=== PATIENT | female | born 1985 | race Two or more races ===

== ENCOUNTER → 2019-12-18 11:58 | Outpatient (BNVA) | payer MEDICAID, SELFPAY | PROVIDERS: Visit Provider Internal Medicine Endocrinology, Diabetes & Metabolism | DX: Z13.89 Encounter for screening for other disorder (principal) | CPT/HCPCS: 99212 ==

== ENCOUNTER 2020-01-09 13:02 | Outpatient (REF) | payer MEDICAID, SELFPAY ==
[2020-01-09 14:46] LABS: Free T4 (Free Thyroxine) 1.29 ng/dL (0.71-1.85); Thyroid Stimulating Hormone 0.44 uIU/mL (0.32-4.0); Vitamin D 25-OH Total 19.5 ng/mL (>30)
[2020-01-09 15:03] LABS: Vitamin B12 198 pg/mL (200-900)
== END 2020-01-09 13:03 | disposition home or self-care (01) ==
LOC: HO.LAB 13:02
PROVIDERS: Visit Provider Internal Medicine Endocrinology, Diabetes & Metabolism
DX: E89.0 Postprocedural hypothyroidism (principal); E53.8 Deficiency of other specified B group vitamins; E55.9 Vitamin D deficiency, unspecified
CPT/HCPCS: 82306; 82607; 84439; 84443

== ENCOUNTER 2020-01-09 17:06 | Emergency (ER) | payer MEDICAID, SELFPAY ==
[2020-01-09 17:23] VITALS: BP 135/90; PULSE 77; RESP 16; TEMP 36.2; O2SAT 99; BMI 42.5
--- NOTE | 2020-01-09 20:29 | ED.GENADULT ---
HPI - General Adult General Chief complaint: Headache Stated complaint: migraines Time Seen by Provider: 01/09/20 20:26 History of Present Illness HPI narrative: There is a 4-year-old female who presents to the emergency department for evaluation of migraine headache x1 week. The patient says she has had a constant, hammering like sensation on the top of her head for 1 week. She has associated chills and sweats. She had associated nausea but no vomiting. She states she has had similar migraine headaches in the past and her last severe migraine headache was 1 year prior. She also states that she feels congested. She has been using Afrin spray with no relief of her congestion. She denied cough, chest pain, shortness of breath, trouble will change to her vision, weakness, numbness, dizziness. She states that her last severe migraine was caused by a sinus infection and she believes that she received antibiotics for the sinus infection. Related Data Home Medications Medication Instructions Recorded Confirmed albuterol sulfate 90 mcg/actuation 2 puff INHALATION Q6H PRN 12/18/19 12/18/19 aerosol inhaler [id number]-znlsacxiiwryd-lazphfjg 250 1 tab PO Q4-6H PRN 12/18/19 12/18/19 mg-250 mg-65 mg tablet docusate sodium 100 mg capsule 100 mg PO DAILY 12/18/19 12/18/19 propranolol 60 mg capsule,24 60 mg PO DAILY 12/18/19 12/18/19 hr,extended release sennosides 8.6 mg capsule 8.6 mg PO BEDTIME 12/18/19 12/18/19 trazodone 50 mg tablet 50 mg PO DAILY 12/18/19 12/18/19 Previous Rx's Medication Instructions Recorded Tirosint 137 mcg capsule 137 mcg PO DAILY 30 Days #30 cap NS 12/18/19 cholecalciferol (vitamin D3) 125 125 mcg PO DAILY 30 Days #30 cap 12/18/19 mcg (5,000 unit) capsule promethazine 25 mg PO Q6H PRN #10 tab 01/09/20 Allergies Allergy/AdvReac Type Severity Reaction Status Date / Time ENVIRONMENTAL Allergy Unknown SHORTNESS Uncoded 10/26/19 15:46 OF BREATH Review of Systems Review of Systems: Yes all other systems are reviewed and are negative Constitutional: Constitutional: Reports as per HPI Eyes: Eyes: Reports as per HPI ENT: Reports as per HPI Cardiovascular: Cardiovascular: Reports as per HPI Respiratory: Respiratory: Reports as per HPI Gastrointestinal: Gastrointestinal: Reports as per HPI Genitourinary: Genitourinary: Reports as per HPI Musculoskeletal: Musculoskeletal: Reports as per HPI Integumentary/Breasts: Skin/Breast: Reports as per HPI Neurologic: Reports as per HPI and Reports Abnormal speech present Psychiatric: Psychiatric: Reports as per HPI Allergic/Immunologic: Allergic/Immunologic: Reports as per HPI PMFSH Past Medical History [facility] Narrative: The patient denies tobacco, alcohol and drug use. Medical History Anxiety B12 deficiency Migraine Obesity Postablative hypothyroidism Vitamin D deficiency Surgical History Hx of dilation and curettage Family History Family History Father Cancer Mother Hypertension Diabetes High cholesterol CVD (cardiovascular disease) Social History Social History Alcohol intake: never Smoking Status: Never smoker Use of substances other than those prescribed or required for medical reasons: No Advance Directives: No Advance Directives Information Provided: Yes Physical Exam Vital Signs: Vital Signs: Last Vital Signs Temp 98.0 F 01/09/20 22:00 Pulse 69 01/09/20 22:00 Resp 16 01/09/20 22:00 BP 130/80 01/09/20 22:00 Pulse Ox 98 01/09/20 22:00 Body Mass Index 42.5 Const: General: cooperative, no acute distress, alert and awake Orientation/consciousness: oriented to person and oriented to place Limitations: no limitations HENMT: Head: Yes normal to inspection, Yes normocephalic and Yes atraumatic Ears: external ears normal General nose exam: Normal external nose present, no nasal discharge noted and Other nasal findings present Face and sinus: Yes normal facial exam, No sinuses nontender and Yes face symmetric Mouth: Normal oral and palatal mucosa present Eyes: General: appearance normal, both eyes and all related structures Periorbital: periorbital findings normal Eyelids: Yes eyelids normal Conjunctivae: conjunctivae normal Sclerae: sclerae normal Corneas: corneas normal Pupils: Equal, round and reactive pupils present Direct Ophthalmoscopy: normal light reflex Neck: Neck: Yes normal visual inspection and Yes supple Lymphatic: no lymphadenopathy noted Chest: Chest palpation & inspection: normal inspection of the chest and normal palpation of entire chest wall Resp: Effort & Inspection: normal respiratory effort, abnormal respiratory pattern, no audible wheezes and no respiratory distress Auscultation: clear to auscultation bilaterally, no crackles, no rales, no rhonchi and no wheezes Cardio: Rate: regular rate Rhythm: regular rhythm Heart sounds: S1 normal heart sound present, S2 normal heart sound present and Murmur heart sound present GI: Inspection: No distended Palpation (GI): Soft to palpation, nontender, no guarding and No hepatosplenomegaly present Auscultation: normal bowel sounds : General: Yes no CVA tenderness Back/Spine/Pelvis: Back: no CVA tenderness Skin: General skin exam: no rashes or lesions noted Lesions: no lesions Rashes: no rashes Wounds: no wounds Neuro: General: oriented to person and oriented to place Cranial nerves: Yes CN's II-XII intact bilaterally and Yes Equal, round and reactive pupils present Cognition (Neuro): normal cognition Speech: Abnormal speech present Motor exam (neuro): 5/5 motor strength present throughout Extrem: General: Yes normal to inspection, Yes full ROM, Yes no pedal edema and Yes no calf tenderness Psych: Appearance: grossly normal Mental Status: mental status grossly normal Speech and movement: Clear speech present Affect: normal affect Thought process: Normal thought process present Course Course Course Narrative: 34-year-old female with history of migraine headaches who presents to emergency department for evaluation of a persistent migraine headache for 1 week, she also complains of sinus congestion. Physical examination revealed no sinus tenderness. The patient's presentation is most consistent with her migraine syndrome. She was ordered and Phenergan 12.5 mg IV, Benadryl 50 mg IV, Toradol 30 mg IV and normal saline x1 L. 2303: The patient is feeling better after the above treatment. The patient was discharged home with a prescription for Phenergan. She was advised to take Excedrin migraine, Phenergan and Benadryl every 6 hours as needed for headache. She was given printed instructions. She was advised follow-up with the doctor in 2 days for evaluation. Discharge Plan Discharge Clinical Impression: Migraine Qualifiers: Migraine type: without aura Status migrainosus presence: without status migrainosus Intractability: not intractable Qualified Code(s): G43.009 - Migraine without aura, not intractable, without status migrainosus Patient Disposition: Home, Self-Care Instructions: Acute Headache (ED) Additional Instructions: Take the following 3 medications together every 6 hours as needed for headache. Excedrin migraine 2 pills Benadryl 25 mg, 2 pills Phenergan 25 mg, 1 pill After you take these medications lying down in a dark quiet room and try to sleep. This often will make the headache go away. Follow-up with your doctor in 2 days for re-evaluation. Please return to the emergency department if her symptoms get worse or if you develops any symptoms that are concerning to you. Prescriptions: New promethazine 25 mg tablet 25 mg PO Q6H PRN (Reason: Nausea, vomiting, headache) Qty: 10 RF: 0 No Action Excedrin Extra Strength 250-250-65 mg tablet 1 tab PO Q4-6H PRNRF: 0 docusate sodium [Colace] 100 mg capsule 100 mg PO DAILY RF: 0 senna 8.6 mg capsule 8.6 mg PO BEDTIME RF: 0 trazodone 50 mg tablet 50 mg PO DAILY RF: 0 propranolol 60 mg capsule,extended release 24 hr 60 mg PO DAILY RF: 0 albuterol sulfate [ProAir HFA] 90 mcg/actuation HFA aerosol inhaler 2 puff inhalation Q6H PRNRF: 0 Tirosint 137 mcg capsule 137 mcg PO DAILY 30 Days Qty: 30 RF: 6 cholecalciferol (vitamin D3) 125 mcg (5,000 unit) capsule 125 mcg PO DAILY 30 Days Qty: 30 RF: 3
[2020-01-09] MEDS: diphenhydrAMINE HCL 50 MG/ML VIAL IVPUSH (20:44)
[2020-01-09] MEDS: Ketorolac Tromethamine 15 MG/ML VIAL 30 MG IV (20:46)
--- NOTE | 2020-01-09 20:53 | PC.NURSE ---
pt medicated per order, after getting ivp benadryl- patient felt dizzy, diaphoretic and vomited a small amount, pt states the last time she got the ivp benadryl the same thing happened, this nurse pushed the iv benadryl slow but patient still had side effects of it, patient asked for a cool compress and is now resting, will continue to monitor.
[2020-01-09 20:56] VITALS: BP 131/89; PULSE 78; RESP 17; TEMP 36.6; O2SAT 99
[2020-01-09 22:00] VITALS: BP 130/80; PULSE 69; RESP 16; TEMP 36.7; O2SAT 98
--- NOTE | 2020-01-09 22:06 | PC.NURSE ---
patient sleeping woke to verbal stimulus, a&ox3, pt states she still has a headache, vitals stable, will continue to monitor.
== END 2020-01-09 23:30 | disposition home or self-care (01) ==
PROVIDERS: Emergency Provider Emergency Medicine Emergency Medical Services
DX: G43.009 Migraine without aura, not intractable, without status migrainosus (principal); E55.9 Vitamin D deficiency, unspecified; E53.8 Deficiency of other specified B group vitamins
CPT/HCPCS: 96374; 96375; 99284; J1200; J1885

== ENCOUNTER 2020-02-10 13:10 | Emergency (ER) | payer MEDICAID, SELFPAY ==
[2020-02-10 14:00] VITALS: BP 151/99; PULSE 86; RESP 18; TEMP 37.6; O2SAT 100; BMI 42.5
--- NOTE | 2020-02-10 14:32 | ED_ITS ---
HPI - URI/Sore Throat General Chief Complaint: Upper Respiratory Symptoms Stated Complaint: covid symptoms Time Seen by Provider: 02/10/20 14:06 Source: patient Mode of arrival: ambulatory Limitations: no limitations History of Present Illness HPI Narrative: Body aches, chills, dry cough for the past 2 days similar to her significant other here for COVID testing. MD elicited complaint: fever (T-max 100.2 degrees) Pertinent past history: asthma Onset (ago): day(s) Consistency: constant Severity: mild Description of mucous: clear Able to tolerate fluids by mouth: Yes Exacerbating factors: nothing Associated symptoms: myalgias and nasal congestion Treatments prior to arrival: none Related Data Home Medications Medication Instructions Recorded Confirmed albuterol sulfate 90 mcg/actuation 2 puff INHALATION Q6H PRN 12/18/19 12/18/19 aerosol inhaler hnanuvz-sctequkdjoexe-rphswrso 250 1 tab PO Q4-6H PRN 12/18/19 12/18/19 mg-250 mg-65 mg tablet docusate sodium 100 mg capsule 100 mg PO DAILY 12/18/19 12/18/19 propranolol 60 mg capsule,24 60 mg PO DAILY 12/18/19 12/18/19 hr,extended release sennosides 8.6 mg capsule 8.6 mg PO BEDTIME 12/18/19 12/18/19 trazodone 50 mg tablet 50 mg PO DAILY 12/18/19 12/18/19 Previous Rx's Medication Instructions Recorded Tirosint 137 mcg capsule 137 mcg PO DAILY 30 Days #30 cap NS 12/18/19 promethazine 25 mg PO Q6H PRN #10 tab 01/09/20 cholecalciferol (vitamin D3) 125 125 mcg PO DAILY 30 Days #30 cap 01/22/20 mcg (5,000 unit) capsule cyanocobalamin (vitamin B-12) 500 500 mcg SUBLINGUAL DAILY 30 Days 01/22/20 mcg sublingual tablet #30 tab azithromycin [Zithromax Z-Nicolás] 250 mg PO DAILY 5 Days #6 tab 02/10/20 prednisone 40 mg PO DAILY 5 Days #10 tab 02/10/20 Allergies Allergy/AdvReac Type Severity Reaction Status Date / Time ENVIRONMENTAL Allergy Unknown SHORTNESS Uncoded 02/10/20 14:00 OF BREATH Review of Systems Review of Systems: Constitutional: No Weight loss, + Fever, + Chills, No Night Sweats, No Fatigue, No Malaise ENT/Mouth: No Hearing loss, No Ear Pain, + Nasal Congestion, No Sinus Pain, No Hoarseness, No sore throat, + Rhinorrhea, No Swallowing Difficulty Eyes: No Eye Pain, No Swelling, No Redness, No Foreign Body, No Discharge, No Vision Changes Cardiovascular: No Chest Pain, No SOB, No Dyspnea on Exertion, No Orthopnea, No Edema, No Palpitations Respiratory: No Cough, No Sputum, No Wheezing, No Smoke Exposure, No Dyspnea Gastrointestinal: No Nausea, No Vomiting, No Diarrhea, No Constipation, No abdominal Pain, No Hematochezia, No Melena Genitourinary: no irregular bleeding, No Dysuria, No Urinary Frequency, No Hematuria, No Urinary Incontinence, No Urgency, No Flank Pain, No Urinary Flow Changes, No Hesitancy Musculoskeletal: No joint pain, + Myalgias, No Joint Swelling Skin: No Skin Lesions, No rash Neuro: No Weakness, No Numbness, No Paresthesias, No Loss of Consciousness, No Dizziness, No Headache Psych: No Social Issues Heme/Lymph: No Bruising, No Bleeding,No Lymphadenopathy Endocrine: No Polyuria, No Polydipsia, No Temperature Intolerance Yes all other systems are reviewed and are negative COUNTS INCLUDE 234 BEDS AT THE [facility] Past Medical History Medical History Anxiety B12 deficiency Migraine Obesity Postablative hypothyroidism Vitamin D deficiency Surgical History Hx of dilation and curettage Family History Family History Father Cancer Mother Hypertension Diabetes High cholesterol CVD (cardiovascular disease) Social History Social History Alcohol intake: never Smoking Status: Never smoker Advance Directives: No Advance Directives Information Provided: Yes Physical Exam Vital Signs: Vital Signs: Last Vital Signs Temp 99.6 F 02/10/20 14:00 Pulse 86 02/10/20 14:00 Resp 18 02/10/20 14:00 BP 151/99 H 02/10/20 14:00 Pulse Ox 100 02/10/20 14:00 Body Mass Index 42.5 Reviewed Const: General: cooperative and healthy appearing; No acute distress or intoxicated appearing Nutritional Appearance: average body habitus Orientation/consciousness: patient oriented x3 HENMT: Head: Yes normal to inspection Ears: hearing grossly normal bilaterally Eyes: General: appearance normal, both eyes and all related structures Visual Arevalo: normal visual arevalo by confrontation Neck: Neck: Yes normal visual inspection, No positive Brudzinski's sign, No positive Kernig's sign and No tender Thyroid: Thyroid normal Chest: Chest palpation & inspection: normal inspection of the chest Resp: Other: Dry bronchial cough Effort & Inspection: normal respiratory effort Auscultation: clear to auscultation bilaterally Cardio: Jugular venous distension: no JVD Rhythm: regular rhythm Heart sounds: S1 normal heart sound present and S2 normal heart sound present GI: Inspection: Yes normal to inspection Percussion: Yes normal to percussion Auscultation: normal bowel sounds : General: Yes no CVA tenderness Back/Spine/Pelvis: Back: no CVA tenderness Skin: General skin exam: no rashes or lesions noted Neuro: General: patient oriented x3 Extrem: General: Yes normal to inspection Course Course Course Narrative: Well nontoxic appearing. Afebrile here. Does have mild dry barking cough history of asthma. Requesting COVID test. Given history will go ahead and start her on short course prednisone, azithromycin empiric with clear discharge return follow-up instructions. Social distancing status the sink guidelines provided. Verbalized understanding. Comfortable plan. Stable for discharge. Discharge Plan Discharge Clinical Impression: Upper respiratory infection Patient Disposition: Home, Self-Care Instructions: Viral Syndrome (ED) Additional Instructions: Based on your symptoms and history we have sent a COVID-19. Although your RESULT IS PENDING at this time. RESULTS should return within 72 hours. At this time you will be contacted with either NEGATIVE OR POSITIVE results. -Please wait until we contact you for your results. At this time you will be okay for discharge. Please plan for self quarantine for up to 14 days. Do not expose yourself to others. You may not go to work. If testing does come back negative you may return to activities as long as you are no longer having any symptoms for at least 3 days. Please continue to follow cold instructions and wash your hands frequently. You may take Tylenol as directed on the bottle for pain or fever. Patient seen in the emergency department and should be excused from work until negative test results AND until 72 hours without any symptoms AND at least 10 days have passed since symptoms first appeared or since last exposure to COVID- 19 positive patient CDC Guidelines for home isolation: - Stay away from others - WEAR A MASK if you are sick AND STAY HOME - Cover your mouth and nose with a tissue when you cough or sneeze. Dispose of tissues in a lined trash can and wash your hands immediately with soap and water for at least 20 seconds. If soap and water are not available, clean hands with alcohol-based hand speech and language specialist that contains at least 60% alcohol. - Clean your hands often with soap and water for at least 20 seconds - Avoid touching your eyes, nose and mouth with unwashed hands - Do not share dishes, drinking glasses, cups, eating utensils, towels, or bedding with other people in your home. After using these items, wash them thoroughly with soap and water or put in the web site admin. - Clean high-touch surfaces in your isolation area ( sick room and bathroom) every day; let a caregiver clean and disinfect high-touch surfaces in other areas of the home. Clean the area or item with soap and water or another detergent if it is dirty. Then, use a household disinfectant. - Limit contact with pets and animals: If you must care for a pet, wash your hands before and after interacting with them Prescriptions: New azithromycin [Zithromax Z-Nicolás] 250 mg tablet 250 mg PO DAILY 5 Days Qty: 6 RF: 0 prednisone 20 mg tablet 40 mg PO DAILY 5 Days Qty: 10 RF: 0 No Action cholecalciferol (vitamin D3) 125 mcg (5,000 unit) capsule 125 mcg PO DAILY 30 Days Qty: 30 RF: 3 cyanocobalamin (vitamin B-12) 500 mcg tablet, sublingual 500 mcg sublingual DAILY 30 Days Qty: 30 RF: 6 promethazine 25 mg tablet 25 mg PO Q6H PRN (Reason: Nausea, vomiting, headache) Qty: 10 RF: 0 Excedrin Extra Strength 250-250-65 mg tablet 1 tab PO Q4-6H PRNRF: 0 docusate sodium [Colace] 100 mg capsule 100 mg PO DAILY RF: 0 senna 8.6 mg capsule 8.6 mg PO BEDTIME RF: 0 trazodone 50 mg tablet 50 mg PO DAILY RF: 0 propranolol 60 mg capsule,extended release 24 hr 60 mg PO DAILY RF: 0 albuterol sulfate [ProAir HFA] 90 mcg/actuation HFA aerosol inhaler 2 puff inhalation Q6H PRNRF: 0 Tirosint 137 mcg capsule 137 mcg PO DAILY 30 Days Qty: 30 RF: 6 Referrals: Physician,Unknown [Primary Care Provider] - 1 week (PHONE VISIT ) Interventions: ED Discharge Assessment Last Done: 02/10/20 14:49 Discharge Date/Time: 02/10/20 14:51
== END 2020-02-10 14:51 | disposition home or self-care (01) ==
PROVIDERS: Nurse Practitioner Primary Care; Emergency Provider Emergency Medicine
DX: U07.1 COVID-19 (principal)
CPT/HCPCS: 99283; U0003

== ENCOUNTER 2020-03-29 10:59 | Outpatient (REF) | payer MEDICAID, SELFPAY ==
--- NOTE | ~2020-03-29 | XR_ITS ---
EXAMINATION: XR FOOT, LEFT CLINICAL INFORMATION: Pain COMPARISON: Previous x-ray December 2018 TECHNIQUE: AP, lateral, and oblique views of the left foot. FINDINGS: Bone alignment is normal. No fracture or dislocation is seen. Joint spaces are normal. Soft tissues are normal. XR/XR foot LT min 3V IMPRESSION: Normal left foot.
== END 2020-03-29 11:00 | disposition home or self-care (01) ==
LOC: HO.XRAY 10:59
PROVIDERS: PCP Internal Medicine; Visit Provider Physician Assistant
DX: M79.672 Pain in left foot (principal); M21.42 Flat foot [pes planus] (acquired), left foot; M21.41 Flat foot [pes planus] (acquired), right foot
CPT/HCPCS: 73630; 99202

== ENCOUNTER → 2020-05-13 10:22 | Outpatient (BNVA) | payer MEDICAID, SELFPAY | PROVIDERS: PCP Nurse Practitioner Family; Visit Provider Surgery | DX: L29.0 Pruritus ani (principal); K64.4 Residual hemorrhoidal skin tags; K64.8 Other hemorrhoids | CPT/HCPCS: 46600; 99212 ==

== ENCOUNTER 2020-05-17 14:59 | Outpatient (REF) | payer MEDICAID, SELFPAY ==
[2020-05-17 16:02] LABS: MANUAL DIFF FLAG NO
[2020-05-17 16:07] LABS: Basophils Percent Auto 0.2 % (0-2); Eosinophils Absolute Auto 0.1 X10*3/uL (0.0-0.4); Eosinophils Percent Auto 1.4 % (0-4); Hemoglobin 11.8 g/dl (12.0-16.0); Imm Gran Abs Auto 0.01 X10*3/uL (0.00-0.03); Imm Gran Pct Auto 0.2 % (0.0-0.4); Lymphocytes Absolute Auto 1.3 X10*3/uL (1.2-4.9); Mean Corpuscular HGB Conc 32.8 g/dl (31.0-35.0); Mean Corpuscular Hemoglobin 28.8 pg (27.0-33.0); Mean Corpuscular Volume 87.8 fL (80-98); Mean Platelet Volume 11.2 fL (9.4-12.3); Monocytes Absolute Auto 0.3 X10*3/uL (0.1-1.2); Monocytes Percent Auto 5.6 % (2-11); Neutrophils Percent Auto 69.6 % (45-73); Platelet Count 221 X10*3/uL (160-400); Red Cell Distribution Width 12.7 % (11.0-16.0); White Blood Count 5.7 X10*3/uL (4.8-10.8)
== END 2020-05-17 15:00 | disposition home or self-care (01) ==
LOC: HO.LAB 14:59
PROVIDERS: PCP Nurse Practitioner Family; Visit Provider Internal Medicine Pulmonary Disease
DX: J45.909 Unspecified asthma, uncomplicated (principal); Z91.09 Other allergy status, other than to drugs and biological substances
CPT/HCPCS: 36415; 82785; 85025; 86003; 99202

== ENCOUNTER 2020-06-07 10:14 | Outpatient (REF) | payer MEDICAID, SELFPAY ==
--- NOTE | 2020-06-07 17:06 | PFT_ITS ---
FVC, FEV1, IIY82-35, and MVV are all normal. Post bronchodilator therapy, there is no change. Total lung capacity normal. Residual volume slightly decreased probably due to external obesity. Diffusion capacity normal. CONCLUSION: Normal pulmonary function test. No evidence of obstructive or restrictive pulmonary disorder. Prisca Joel MD MSB/MODL / [id number]
== END 2020-06-07 10:15 | disposition home or self-care (01) ==
LOC: HO.RESP 10:14
PROVIDERS: Visit Provider Internal Medicine Pulmonary Disease
DX: J45.909 Unspecified asthma, uncomplicated (principal)
CPT/HCPCS: 94060; 94727; 94729; 99212

== ENCOUNTER 2020-06-14 14:01 | Outpatient (REF) | payer MEDICAID, SELFPAY ==
[2020-06-14 15:55] LABS: Hematocrit 36.8 % (37-47); Hemoglobin 12.2 g/dl (12.0-16.0); Mean Corpuscular HGB Conc 33.2 g/dl (31.0-35.0); Mean Corpuscular Hemoglobin 28.6 pg (27.0-33.0); Mean Corpuscular Volume 86.4 fL (80-98); Mean Platelet Volume 11.5 fL (9.4-12.3); Platelet Count 227 X10*3/uL (160-400); Red Blood Count 4.26 X10*6/uL (4.20-5.50); Red Cell Distribution Width 12.3 % (11.0-16.0); White Blood Count 5.5 X10*3/uL (4.8-10.8)
[2020-06-14 16:39] LABS: TSH reflex Free T4 5.49 uIU/mL (0.32-4.0)
[2020-06-14 17:46] LABS: Free T4 (Free Thyroxine) 1.12 ng/dL (0.71-1.85)
[2020-06-15 10:42] LABS: CT PCR NOT DETECTED (Not Detect.); NG PCR NOT DETECTED (Not Detect.)
[2020-06-15 11:58] LABS: BV Int Neg Control Negative (Negative); BV Int Pos Control Positive (Positive)
[2020-06-20 13:21] LABS: HSV 1 IgM IFA Negative (Negative); HSV 2 IgM IFA Negative (Negative)
== END 2020-06-14 14:02 | disposition home or self-care (01) ==
LOC: HO.LAB 14:01
PROVIDERS: PCP Nurse Practitioner Family; Visit Provider Advanced Practice Midwife
DX: Z11.3 Encounter for screening for infections with a predominantly sexual mode of transmission (principal); R10.2 Pelvic and perineal pain; N92.0 Excessive and frequent menstruation with regular cycle; B00.9 Herpesviral infection, unspecified
CPT/HCPCS: 36415; 81003; 84439; 84443; 85027; 86695; 86696; 87480; 87491; 87510; 87591; 87660; 99212

== ENCOUNTER → 2020-06-18 12:53 | Outpatient (BNVA) | payer MEDICAID, SELFPAY | PROVIDERS: PCP Nurse Practitioner Family; Visit Provider Internal Medicine Endocrinology, Diabetes & Metabolism | DX: E89.0 Postprocedural hypothyroidism (principal); E66.9 Obesity, unspecified; E55.9 Vitamin D deficiency, unspecified; E53.8 Deficiency of other specified B group vitamins | CPT/HCPCS: 99212 ==

== ENCOUNTER 2020-06-27 10:45 | Outpatient (REF) | payer MEDICAID, SELFPAY ==
--- NOTE | ~2020-06-27 | US_ITS ---
EXAMINATION: US PELVIC ULTRASOUND CLINICAL INFORMATION: Excessive and frequent menstruation. COMPARISON: Previous pelvic ultrasounds, most recent September 2015. TECHNIQUE: Transabdominal and transvaginal pelvic ultrasound was performed. Transvaginal exam was performed for better visualization of the uterus and ovaries. FINDINGS: The uterus is anteverted and measures 8.7 x 4.2 x 5.3 cm in dimension. No focal uterine lesion is seen. IUD is no longer seen. Endometrial thickness measures 1.5 cm. There is a small 2 mm cyst seen in the endometrium. There are multiple large nabothian cysts in the cervix. The largest measures 1.5 cm. These appear increased from 2016 exam. The right ovary measures 2.8 x 2 x 2.7 cm. There is a minimally complex 1.9 x 1.1 x 1.4 cm cyst with slightly thickened echogenic wall. This probably represents a corpus luteum. There is a 0.9 x 0.6 x 1 cm echogenic area in the right ovary. The left ovary measures 3.5 x 1.4 x 1.4 cm and is normal appearing. There is no fluid in the pelvis. US/US pelvic and transvaginal IMPRESSION: Multiple large nabothian cysts. Cysts are slightly increased in size and number compared to September 2015 exam. 1.9 x 1.1 x 1.4 cm slightly complex right ovarian cyst probably representing a physiologic corpus luteum. Small nonspecific 9 x 6 x 10 mm echogenic area in the right ovary new from previous exam.
== END 2020-06-27 10:46 | disposition home or self-care (01) ==
LOC: HO.US 10:45
PROVIDERS: PCP Nurse Practitioner Family; Visit Provider Advanced Practice Midwife
DX: N92.0 Excessive and frequent menstruation with regular cycle (principal); R10.2 Pelvic and perineal pain
CPT/HCPCS: 76830; 76856

== ENCOUNTER → 2020-07-15 11:08 | Outpatient (BNVA) | payer MEDICAID, SELFPAY | PROVIDERS: PCP Nurse Practitioner Family; Visit Provider Advanced Practice Midwife ==

== ENCOUNTER 2020-08-19 13:00 | Outpatient (REF) | payer MEDICAID, SELFPAY ==
--- NOTE | ~2020-08-19 | US_ITS ---
EXAMINATION: PELVIC ULTRASOUND CLINICAL INFORMATION: Right ovarian cyst COMPARISON: Previous pelvic ultrasound June [address] of the abdomen and pelvis January 2013 TECHNIQUE: Transabdominal and transvaginal pelvic ultrasound was performed. Transvaginal exam was performed for better visualization of the uterus and ovaries. FINDINGS: The uterus is anteverted and measures 10.3 x 4.7 x 4.9 cm in dimension. No focal uterine lesion is seen. The endometrium is difficult to define. Endometrial thickness is upper normal measuring 1.5 cm. There is fluid in the endometrial cavity. There are large nabothian cysts in the cervix. Right ovary measures 2.5 x 1.7 x 2.4 cm. The previously identified right ovarian cyst is no longer seen. There is a nonspecific echogenic area in the right ovary that measures 1.5 x 0.7 x 1.2 cm. This is increased in size from 0.9 x 0.6 x 1.0 cm on prior exam. Left ovary measures 3.3 x 2.1 x 2.5 cm. There is a new 2.1 x 1.6 x 1.8 cm minimally complex left ovarian cyst. There is a small amount of fluid seen in the pelvis adjacent to the left ovary. US/US pelvic and transvaginal IMPRESSION: Resolved right ovarian cyst. Nonspecific 1.5 x 0.7 x 1.2 cm hyperechoic area in the right ovary increased from 0.9 x 0.6 x 1 cm on prior exam. New small minimally complex left ovarian cyst measuring maximum 2.1 cm.
== END 2020-08-19 13:01 | disposition home or self-care (01) ==
LOC: HO.US 13:00
PROVIDERS: Visit Provider Advanced Practice Midwife
DX: N83.291 Other ovarian cyst, right side (principal)
CPT/HCPCS: 76830; 76856

== ENCOUNTER → 2020-09-16 11:01 | Outpatient (BNVA) | payer MEDICAID, SELFPAY | PROVIDERS: PCP Nurse Practitioner Family; Visit Provider Advanced Practice Midwife ==

== ENCOUNTER 2020-10-23 11:02 | Outpatient (REF) | payer MEDICAID, SELFPAY ==
--- NOTE | ~2020-10-23 | US_ITS ---
EXAMINATION: US PELVIS CLINICAL INFORMATION: Left-sided ovarian cyst. COMPARISON: None TECHNIQUE: Ultrasound of the pelvis is performed using both transabdominal and transvaginal transducers along with Doppler. Transvaginal imaging is performed due to inadequate visualization transabdominally. FINDINGS: Uterus: The uterus is anteverted and measures 10.0 x 4.8 x 5.7 cm. The double wall endometrial thickness is 1.6 cm. The uterus is smooth in contour and has normal myometrial echogenicity. No visible fibroid. There is a small anechoic nabothian cysts in the cervix. Adnexa: Both ovaries are visualized. There is normal color flow to the adnexa. There is no ovarian torsion. There is no pelvic ascites or fluid collection. Right ovary measures 4.0 x 2.3 x 2.6 cm and volume 12.5 mL. There is a hypoechoic area measuring 1.1 x 0.6 x 0.4 cm. It was previously visualized and measures 0.9 x 0.6 x 1.0 cm. There is a corpus luteal cyst in addition measuring 2.1 x 1.5 x 1.7 cm. Previously right ovary measured 2.5 x 1.7 x 2.4 cm and volume 5.3 mL. Left ovary measures 2.8 x 1.1 x 2.1 cm and volume 3.4 mL. It appears unremarkable. Previously left ovary measured 3.3 x 2.1 x 2.5 cm and volume 9.1 mL. US/US pelvic and transvaginal IMPRESSION: 1. Unremarkable uterus. 2. Several nabothian cysts in the cervix. 3. Hyperechoic area right ovary is stable. There is a new right ovarian corpus luteal cyst. 4. Left ovary is unremarkable.
== END 2020-10-23 11:03 | disposition home or self-care (01) ==
LOC: HO.US 11:02
PROVIDERS: Visit Provider Advanced Practice Midwife
DX: N83.292 Other ovarian cyst, left side (principal)
CPT/HCPCS: 76830; 76856

== ENCOUNTER → 2020-11-06 10:45 | Outpatient (BNVA) | payer MEDICAID, SELFPAY | PROVIDERS: Visit Provider Advanced Practice Midwife ==

== ENCOUNTER 2020-11-07 15:25 | Outpatient (REF) | payer MEDICAID, SELFPAY ==
[2020-11-07 16:39] LABS: Free T4 (Free Thyroxine) 1.15 ng/dL (0.71-1.85); Thyroid Stimulating Hormone 12.64 uIU/mL (0.32-4.0); Vitamin D 25-OH Total 22.6 ng/mL (>30)
[2020-11-07 16:42] LABS: Vitamin B12 194 pg/mL (200-900)
[2020-11-07 17:53] LABS: Appearance Urine CLEAR; Color Urine YELLOW; Glucose Urine UA NEG (NEG); Leukocyte Esterase Urine NEG (NEG); Nitrite Urine NEG (NEG); Specific Gravity - Urine >= 1.030 (1.005-1.025); Urine Blood NEG (NEG); Urine Ketones NEG (NEG); Urine Protein NEG (NEG-TRACE)
[2020-11-09 07:42] LABS: Immunoglobulin E 78 kU/L (<OR=114)
== END 2020-11-07 15:26 | disposition home or self-care (01) ==
LOC: HO.LAB 15:25
PROVIDERS: Internal Medicine Pulmonary Disease; Absent Provider Internal Medicine Endocrinology, Diabetes & Metabolism; Visit Provider Advanced Practice Midwife
DX: R10.2 Pelvic and perineal pain (principal); E53.8 Deficiency of other specified B group vitamins; E89.0 Postprocedural hypothyroidism; E55.9 Vitamin D deficiency, unspecified; Z91.09 Other allergy status, other than to drugs and biological substances
CPT/HCPCS: 36415; 81003; 82306; 82607; 82785; 84439; 84443

== ENCOUNTER → 2020-11-28 10:28 | Outpatient (BNVA) | payer MEDICAID, SELFPAY | PROVIDERS: Visit Provider Internal Medicine Pulmonary Disease | DX: J45.909 Unspecified asthma, uncomplicated (principal) | CPT/HCPCS: 99212 ==

== ENCOUNTER → 2020-12-18 10:31 | Outpatient (BNVA) | payer MEDICAID, SELFPAY | PROVIDERS: PCP Registered Nurse Community Health; Visit Provider Nurse Practitioner Gerontology | DX: E89.0 Postprocedural hypothyroidism (principal); E66.9 Obesity, unspecified; E53.8 Deficiency of other specified B group vitamins; E55.9 Vitamin D deficiency, unspecified; R58 Hemorrhage, not elsewhere classified; Z68.41 Body mass index [BMI] 40.0-44.9, adult; Z79.899 Other long term (current) drug therapy | CPT/HCPCS: 99212 ==

== ENCOUNTER 2021-06-12 10:12 | Outpatient (REF) | payer MEDICAID, SELFPAY ==
[2021-06-12 16:45] LABS: CT PCR NOT DETECTED (Not Detect.); NG PCR NOT DETECTED (Not Detect.)
== END 2021-06-12 10:13 | disposition home or self-care (01) ==
LOC: HO.LAB 10:12
PROVIDERS: PCP Registered Nurse Community Health; Visit Provider Advanced Practice Midwife
DX: Z01.419 Encounter for gynecological examination (general) (routine) without abnormal findings (principal); Z20.2 Contact with and (suspected) exposure to infections with a predominantly sexual mode of transmission; R33.9 Retention of urine, unspecified
CPT/HCPCS: 81003; 81025; 87491; 87591

== ENCOUNTER 2021-10-07 08:12 | Outpatient (REF) | payer MEDICAID, SELFPAY | END 2021-10-07 08:13 | disposition home or self-care (01) | LOC: HO.RESP 08:12 | PROVIDERS: Visit Provider Nurse Practitioner Primary Care | DX: Z13.89 Encounter for screening for other disorder (principal) ==

== ENCOUNTER → 2021-10-09 09:42 | Outpatient (BNVA) | payer MEDICAID, SELFPAY | PROVIDERS: PCP Registered Nurse Community Health; Visit Provider Internal Medicine Pulmonary Disease | DX: R06.09 Other forms of dyspnea (principal); J45.30 Mild persistent asthma, uncomplicated; Z79.899 Other long term (current) drug therapy | CPT/HCPCS: 99212 ==

== ENCOUNTER 2021-11-25 07:57 | Outpatient (REF) | payer MEDICAID, SELFPAY ==
--- NOTE | 2021-11-25 14:17 | PFT_ITS ---
FLOWS: FEV1 114% of predicted at 3.38 L. FVC 108% of predicted at 3.82 L. FEV1 to FVC ratio of 0.88. No bronchodilator response. LUNG VOLUMES: Total lung capacity 105% of predicted at 5.18 L. Residual volume 78% of predicted at 1.17 L. Slow vital capacity 117% of predicted at 4.00 L. Expiratory reserve volume 56% of predicted at 0.68 L. Diffusion capacity is normal. In comparison to pulmonary function test from May of 2020, there have been no significant changes. IMPRESSION: No obstructive or restrictive ventilatory defect. No bronchodilator response, except in small to medium airways. Decreased expiratory reserve volume suggests extrathoracic restriction likely secondary to abdominal obesity. MD BARBARA Gastelum/MODL / [id number]
== END 2021-11-25 07:58 | disposition home or self-care (01) ==
LOC: HO.RESP 07:57
PROVIDERS: Visit Provider Internal Medicine Pulmonary Disease
DX: R06.09 Other forms of dyspnea (principal); J45.40 Moderate persistent asthma, uncomplicated
CPT/HCPCS: 94060; 94727; 94729

== ENCOUNTER → 2021-12-10 10:24 | Outpatient (BNVA) | payer MEDICAID, SELFPAY | PROVIDERS: PCP Registered Nurse Community Health; Visit Provider Internal Medicine Pulmonary Disease | DX: R06.09 Other forms of dyspnea (principal); F41.9 Anxiety disorder, unspecified | CPT/HCPCS: 99212 ==

== ENCOUNTER → 2022-05-21 08:04 | Outpatient (BNVA) | payer MEDICAID, SELFPAY | PROVIDERS: PCP Registered Nurse Community Health; Visit Provider Internal Medicine Endocrinology, Diabetes & Metabolism | DX: E89.0 Postprocedural hypothyroidism (principal); E53.8 Deficiency of other specified B group vitamins; E55.9 Vitamin D deficiency, unspecified | CPT/HCPCS: 99212 ==

== ENCOUNTER 2022-07-15 12:55 | Outpatient (REF) | payer MEDICAID, SELFPAY ==
[2022-07-15 14:19] LABS: Free T4 (Free Thyroxine) 1.29 ng/dL (0.71-1.85); Thyroid Stimulating Hormone 3.97 uIU/mL (0.32-4.0)
== END 2022-07-15 12:56 | disposition home or self-care (01) ==
LOC: HO.LAB 12:55
PROVIDERS: PCP Registered Nurse; Visit Provider Internal Medicine Endocrinology, Diabetes & Metabolism
DX: E89.0 Postprocedural hypothyroidism (principal)
CPT/HCPCS: 36415; 84439; 84443

== ENCOUNTER 2022-09-16 09:52 | Outpatient (REF) | payer MEDICAID, SELFPAY ==
--- NOTE | 2022-09-16 | EMG_ITS ---
Please see scanned EMG / Nerve Conduction Report. MTDD
== END 2022-09-16 09:53 | disposition home or self-care (01) ==
LOC: HO.NEURO 09:52
PROVIDERS: PCP Registered Nurse; Visit Provider Registered Nurse
DX: R20.0 Anesthesia of skin (principal); R20.2 Paresthesia of skin
CPT/HCPCS: 95860; 95885; 95907; 95913

== ENCOUNTER 2022-11-13 13:04 | Outpatient (REF) | payer MEDICAID, SELFPAY ==
[2022-11-14 09:14] LABS: DHEA Sulfate 113 mcg/dL (19-237); Follicle Stimulating Hormone 4.6 mIU/mL; Lutenizing Hormone 4.8 mIU/mL
[2022-11-18 13:44] LABS: Testosterone, Free 2.5 pg/mL (0.1-6.4); Testosterone, Total 33 ng/dL (2-45)
[2022-11-18 17:03] LABS: VITAMIN D (1,25 OH) D3 79 pg/mL; Vit D (1,25-Dihydroxy) Total 79 pg/mL (18-72); Vitamin D (1,25 OH) D2 <8 pg/mL
[2022-11-19 22:43] LABS: Estradiol Ultra Sensitive 141 pg/mL
== END 2022-11-13 13:05 | disposition home or self-care (01) ==
LOC: HO.HHCL 13:04
PROVIDERS: Visit Provider Student in an Organized Health Care Education/Training Program
DX: Z00.00 Encounter for general adult medical examination without abnormal findings (principal); Z11.4 Encounter for screening for human immunodeficiency virus [HIV]; L68.0 Hirsutism
CPT/HCPCS: 0353U; 80053; 80061; 82043; 82570; 82627; 82652; 82670; 83001; 83002; 83036; 84402; 84403; 84439; 84443; 85025; 86704; 86706; 86780; 86803; 87389; 87517

== ENCOUNTER 2022-11-19 10:05 | Outpatient (AMB) | payer MEDICAID, SELFPAY ==
[2022-11-19 10:11] VITALS: BP 138/82; PULSE 75; O2SAT 67; BMI 40.4
--- NOTE | 2022-11-19 10:11 | A.OFFVIS_ITS ---
Intake Vital Signs 11/19/22 10:11 Height 5 ft 4 in Weight 235 lb 10.786 oz BMI 40.4 BP 138/82 Blood Pressure Location Lt brachial Position Sitting Pulse 75 Pulse Source Pulse Oximeter Pulse Oximetry (%) 67 L Intake Visit Reasons: f/u postablative hypothyroidism Intake Note: Patient present for postablative hypothyroidism follow up visit. Senior Gis Analyst Required: No Accompanied by: Self / Same As Patient Allergies No Known Allergies Allergy (Verified 11/19/22 10:18) Medication List - Last Reconciled 11/19/22 by Paul Buck MD acyclovir 5% (Zovirax) 1 appl topical 6XD PRN 7 days albuterol sulfate 90 mcg/actuation (ProAir HFA) 2 puffs inhalation Q6H PRN amitriptyline 50 mg PO BEDTIME [Anti-pronation orthotics Anti-pronation orthotics] [id number] 250-250-65 mg (Excedrin Extra Strength) 1 tab PO Q4-6H PRN bupropion HCl 300 mg PO QAM cholecalciferol (vitamin D3) 25 mcg PO QAM clonazepam 0.25 mg PO BID cyanocobalamin (vitamin B-12) 1,000 mcg PO DAILY docusate sodium (Colace) 100 mg PO DAILY epinephrine IM fluticasone propion-salmeterol 250-50 mcg/dose (Wixela Inhub) 1 inh inhalation BID 30 days hydroxyzine HCl 10 mg PO BID 30 days menthol-zinc oxide 0.44-20.6 % (Calmoseptine) 1 appl topical QID PRN montelukast 10 mg PO DAILY promethazine 25 mg PO Q6H PRN propranolol ER 60 mg PO DAILY sennosides (senna) 8.6 mg PO BEDTIME Tirosint (levothyroxine) 137 mcg PO DAILY 30 days NS topiramate 50 mg PO BID trazodone 50 mg PO DAILY trazodone 100 mg PO BEDTIME PRN valacyclovir (Valtrex) 500 mg PO DAILY 30 days HPI HPI Comments History of Present Illness Details Patient is a 37-year-old female with hypothyroidism, who presents for management. . She was continued on her current medication regimen. Patient reports treated with SEGOVIA ablation of thyroid in her 20s. Patient andressa Velázquez NP on 12/18 Patient complains of inability to loose weight, unexplained bruising and difficulty with becoming . 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 Past Medical History: postablative hypothyroidism, B12 deficiency, Vitamin D deficiency Medications: Tirosint 137mcg for approximately 1 year ago. Takes fasting am sometimes with water or juice. Eats 2 hours later. About 3 times a week takes medication at bedtime when forgets in am, 1/2 hour to 1 hour after eating. Occasionally when forgets will take the next day. Symptoms: Reports cold intolerance,weight gain, regular periods, constipation, dry skin. Denies insomnia, fatigue, dry skin, tremors, palpitations, irritability, anxiety. Laboratory Tests 11/07/20 11/07/20 15:45 15:45 Vitamin B12 194 L 25-OH Vitamin D To bobo 22.6 TSH 12.64 H Free T4 1.15 PFS Medical History (Updated 12/10/21 @ 10:50 by Avel Urena MD) Internal and external bleeding hemorrhoids Pruritus ani Migraine Anxiety B12 deficiency Vitamin D deficiency Obesity Postablative hypothyroidism Surgical History Hx of dilation and curettage Family History Father Cancer Mother Hypertension Diabetes High cholesterol CVD (cardiovascular disease) Social History Household Members Other:: daughter Housing: House Alcohol intake: never Patient Tobacco Use Status: Never used Tobacco Current occupational status: unemployed Sexual orientation: Straight/Heterosexual Gender identity: Female Physical Exam Vital Signs: Last Vital Signs Pulse 75 11/19/22 10:11 BP 138/82 11/19/22 10:11 Pulse Ox 67 L 11/19/22 10:11 BMI result Body Mass Index 40.4 Const Other: Thyroid gland is decreased in size weighs about 5 g. The no thyroid nodules palpated. Reflexes 2+ DP Assessment & Plan Assessment & Plan (1) Postablative hypothyroidism: Code(s): E89.0 - Postprocedural hypothyroidism Plan: This is a 37-year-old female with a history of post-ablated hypothyroidism currently replaced with 137 mcg of Tirosint . She appears to be clinically euthyroid. Plan is stressed compliance with the Tirosint. Will recheck TSH and free T4 in 6 weeks time adjust accordingly Orders: Orders Free T4 (Free Thyroxine) 6 Weeks E89.0 - Postprocedural hypothyroidism Thyroid Stimulating Hormone 6 Weeks E89.0 - Postprocedural hypothyroidism Coding Level of Care Code Est Pt Level 3 (21054) Diagnoses Postablative hypothyroidism E89.0
== END 2022-11-19 10:34 | disposition home or self-care (01) ==
PROVIDERS: PCP Registered Nurse; Referring Provider Registered Nurse; Visit Provider Internal Medicine Endocrinology, Diabetes & Metabolism
DX: E89.0 Postprocedural hypothyroidism (principal)
CPT/HCPCS: 99213

== ENCOUNTER → 2022-11-19 10:05 | Outpatient (BNVA) | payer MEDICAID, SELFPAY | PROVIDERS: Visit Provider Internal Medicine Endocrinology, Diabetes & Metabolism | DX: E89.0 Postprocedural hypothyroidism (principal) | CPT/HCPCS: 99212 ==

== ENCOUNTER 2023-01-05 10:34 | Outpatient (REF) | payer MEDICAID, SELFPAY ==
--- NOTE | ~2023-01-05 | XR_ITS ---
EXAMINATION: XR CERVICAL SPINE CLINICAL INFORMATION: Pain. COMPARISON: CT cervical spine dated 12/03/2010. TECHNIQUE: Frontal, odontoid, bilateral oblique and lateral views of the cervical spine are obtained. FINDINGS: Vertebral body heights are normal. At C5-C6, there is moderate disc space narrowing, with a 2 mm anterolisthesis. The remaining disc spaces are well-maintained. No acute fracture or spondylolisthesis is seen. There is mild anterior spondylosis extending from C3-C4 through C5-C6. The posterior elements are intact. The bilateral neural foramina appear patent. There is no prevertebral soft tissue swelling. The dens and C7-T1 interface are normal. XR/XR cervical spine min 6V IMPRESSION: 1. There is moderate degenerative disease at C5-C6. 2. No acute fracture or spondylolisthesis is seen. 3. There is mild anterior spondylosis extending from C3-C4 through C5-C6.
--- NOTE | ~2023-01-05 | XR_ITS ---
EXAMINATION: XR SHOULDER, LEFT CLINICAL INFORMATION: Pain. COMPARISON: None available. TECHNIQUE: AP external rotation, Grashey, scapular Y, and axillary views of the left shoulder. FINDINGS: The bones and soft tissues are normal. No fracture. Glenohumeral and acromioclavicular alignment is anatomic with normal joint space. No abnormal soft tissue calcifications. XR/XR shoulder LT min 2V IMPRESSION: Normal left shoulder.
== END 2023-01-05 10:35 | disposition home or self-care (01) ==
LOC: HO.XRAY 10:34
PROVIDERS: PCP Registered Nurse; Visit Provider Nurse Practitioner Family
DX: M47.812 Spondylosis without myelopathy or radiculopathy, cervical region (principal); M25.512 Pain in left shoulder; M25.511 Pain in right shoulder; M62.838 Other muscle spasm
CPT/HCPCS: 72052; 73030; 99212

== ENCOUNTER 2023-01-05 10:34 | Outpatient (AMB) | payer MEDICAID, SELFPAY ==
--- NOTE | 2023-01-05 10:36 | MHC.OFFVIS ---
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 Right hand dominant. Reports remote mechanical fall injury in 2008 when she was moving out from her apartment due to another unit and fell backwards on her back. She reports loosing consciousness at the time of her fall and was [place] by ambulance [place] [facility] and was admitted for 3 days. She states she had a neck metal collar for one week and this was changed to soft plastic neck collar for 6 months. Denies spine surgery or injections. Reports weakness and numbness of LUE with lifting, pulling or carrying a purse or bag. Significant tenderness left upper trapezius. EMG study on 09/16/22 was normal for left upper extremity. Today she presents with neck pain with all movements, especially with cervical extension, left-sided rotation or bending. She reports dizziness when looking down however this was not reproduced today. Patient also has bilateral shoulder pain, minimal pain on the right shoulder and significant pain in the left shoulder is overhead reaches or backside pocket reaches. She reports completing several courses of physical therapy which have worsened her symptoms and prompted her to discontinue therapy. Last cervical spine MRI was done in 2009 at [facility] [place] this report is not available today. Pain is constant and is rated at 8/10 today, 10/10 worse pain and 5/10 least pain. Patient denies any fever, chills, chest pain, headache, shortness of breath, gait imbalances, weakness, bladder or bowel dysfunction or saddle anesthesia. Location Bilateral shoulder pain, neck, radiates to lower back Duration Chronic pain since 2008 due to fall injury Characteristics of symptom or complaint Aching, throbbing, pulsing, burning, spasming , numbness (left neck) Aggravating or associated factors Lifting/carrying, movements, cold weather changes Relieving factors Lidocaine patches, topical cream, heat therapy, massage, Flexeril Treatment PT- 2010, [id number], EMG 09/30-normal [facility] Medical History Internal and external bleeding hemorrhoids Pruritus ani Migraine Anxiety B12 deficiency Vitamin D deficiency Obesity Postablative hypothyroidism Surgical History Hx of dilation and curettage Family History Father Cancer Mother Hypertension Diabetes High cholesterol CVD (cardiovascular disease) Social History Household Members Other:: daughter Housing: House Alcohol intake: never Patient Tobacco Use Status: Never used Tobacco Current occupational status: unemployed Sexual orientation: Straight/Heterosexual Gender identity: Female Review of Systems Const All systems reviewed & are unremarkable except as noted in HPI and below Physical Exam Vital Signs: Last Vital Signs Pulse 71 01/05/23 10:42 BP 148/85 H 01/05/23 10:42 Pulse Ox 99 01/05/23 10:42 Oxygen Delivery Method Room Air 01/05/23 10:42 BMI result Body Mass Index 39.6 General: Appears afebrile. Alert and oriented. Mood and affect appropriate. Follows and participates in conversation appropriately. Respiratory effort is unlabored. No cough. Able to transition from sit to stand unassisted. Ambulates with bilaterally normal heel strike and toe off. Neck Other: Patient with decreased cervical ROM in all planes/especially with left lateral rotation. Reports increased pain with cervical extension and flexion, worse with flexion. Spurling compression test negative. Pain is unchanged by Spurling maneuver with retraction. Elvey's tension test negative bilaterally. Lhermitte's test was negative. DTR intact, +2 and symmetrical. Patient demonstrated 5/5 right and 4/5 left motor strength of bilateral upper extremities. 2 + radial pulses. Significant tightness throughout left upper trapezius as well as TTP throughout bilateral upper trapezius muscles. No paravertebral tenderness over facet joints bilaterally. Multiple taut bands palpated throughout bilateral upper trapezius muscles. No clonus. Poor posture with forward head posture. Neck: Yes no lymphadenopathy, Yes supple, No anterior neck swelling, Yes no JVD and Yes prominent dorsocervical fat pad Back/Spine/Pelvis Cervical Spine: No collar present, loss of normal cervical lordosis, cervical muscular tenderness, pain with cervical ROM, No Cervical spine scars present, cervical spasm (left), No Cervical spine tenderness and No step off deformity Thoracic/Lumbar Spine: thoracic and lumbar spine normal to inspection, thoraco-lumbar ROM normal, Lasegue's sign negative, straight leg raise negative bilaterally, paraspinal muscle tenderness, No thoracic spinal tenderness and No lumbar spinal tenderness Extrem General: Yes capillary refill normal, Yes no clubbing, cyanosis or edema and Yes no calf tenderness Results Reviewed Results Reviewed: 09/16/22 Assessment & Plan Assessment & Plan (1) Cervical spondylosis: Code(s): M47.812 - Spondylosis without myelopathy or radiculopathy, cervical region (2) Muscle spasms of neck: Code(s): M62.838 - Other muscle spasm (3) Bilateral shoulder pain: Code(s): M25.511 - Pain in right shoulder; M25.512 - Pain in left shoulder Plan Cervical spine and shoulder imaging to assess degree of degenerative changes, any subluxation, listhesis, compression fractures or pars defects. Neck pain is facet mediated and also consistent with muscle spasms and stiffness that radiates to her left shoulder. We will assess degree of arthritis in both areas and consider interventional treatments, including diagnostic nerve blocks for potential peripheral nerve stimulation vs RFA procedures vs therapeutic injections. Informational pamphlets were provided to patient today. Scripts provided for cyclobenzaprine, gabapentin and topical diclofenac cream was reviewed with patient. All questions and concerns have been answered and patient agreed with the plan. Follow-up for x-ray results and sooner as needed. Orders: Orders XR shoulder LT min 2V Today M25.511 - Pain in right shoulder, M25.512 - Pain in left shoulder, M47.812 - Spondylosis without myelopathy or radiculopathy, cervical region XR cervical spine min 6V Today M25.511 - Pain in right shoulder, M25.512 - Pain in left shoulder, M47.812 - Spondylosis without myelopathy or radiculopathy, cervical region Medications: New cyclobenzaprine 5 mg PO BID PRN 60 tabs 0RF muscle spasm M47.812 - Spondylosis without myelopathy or radiculopathy, cervical region, M62.838 - Other muscle spasm diclofenac sodium 1% (Voltaren Arthritis Pain) 4 grams topical QID 100 grams 0RF pain M47.812 - Spondylosis without myelopathy or radiculopathy, cervical region gabapentin 300 mg PO BEDTIME 30 days 30 caps 0RF pain M25.511 - Pain in right shoulder, M25.512 - Pain in left shoulder, M47.812 - Spondylosis without myelopathy or radiculopathy, cervical region Coding Level of Care Code New Pt Level 4 (48287) Diagnoses Cervical spondylosis M47.812 Muscle spasms of neck M62.838 Bilateral shoulder pain M25.511; M25.512
[2023-01-05 10:42] VITALS: BP 148/85; PULSE 71; O2SAT 99; BMI 39.6
== END 2023-01-05 11:15 | disposition home or self-care (01) ==
PROVIDERS: PCP Registered Nurse; Visit Provider Nurse Practitioner Family
DX: M47.812 Spondylosis without myelopathy or radiculopathy, cervical region (principal); M62.838 Other muscle spasm; M25.511 Pain in right shoulder; M25.512 Pain in left shoulder
CPT/HCPCS: 99204

== ENCOUNTER 2023-01-12 09:08 | Outpatient (AMB) | payer MEDICAID, SELFPAY ==
--- NOTE | 2023-01-12 09:11 | A.OFFVIS_ITS ---
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 Doing well with concerns: Right breast pain recently noted in the attended 12 o'clock position. She denies any injuries, prior breast surgeries trauma to the breast. She tries to eat healthy and stays active with exercise. Regular monthly menses that last approximately heavy x2/5d. Currently is sexually active. Not on control she has been uninterested in intimacy for few months and was not concerned about . But in the future may be open to a . She is wondering if [facility] sent any records on her testing when they did an ultrasound to see if her tubes were still working. Chart review did not reveal any records. She denies vaginal itching and irritation. STI screening offered; she accepts. Denies family history of breast, ovarian or colon cancer. Last pap smear 2017, negative. [facility] Medical History Internal and external bleeding hemorrhoids Pruritus ani Migraine Anxiety B12 deficiency Vitamin D deficiency Obesity Postablative hypothyroidism Surgical History Hx of dilation and curettage Family History Father Cancer Mother Hypertension Diabetes High cholesterol CVD (cardiovascular disease) Social History Household Members Other:: daughter Housing: House Alcohol intake: never Patient Tobacco Use Status: Never used Tobacco Current occupational status: unemployed Sexual orientation: Straight/Heterosexual Gender identity: Female Female Reproductive History Menstrual Duration of menses: 6-7 days Date of last menstrual period: 12/13/22 Total pregnancies: 4 Full term: 1 Number of Living Children: 1 Ab induced: 2 Ab spontaneous: 1 Date of last pap smear: 06/24/17 (neg pap and hpv) Review of Systems Const All systems reviewed & are unremarkable except as noted in HPI and below Reports as per HPI Eyes Reports no additional complaints ENT Reports no additional complaints Card Reports no additional complaints Resp Reports no additional complaints GI Reports as per HPI and Reports no additional complaints Reports as per HPI Musc Reports no additional complaints Skin/Breast Reports as per HPI Neuro Reports no additional complaints Psych Reports no additional complaints Endo Reports no additional complaints Trent/Lymph Reports no additional complaints Aller/Immun Reports no additional complaints Physical Exam Vital Signs: Last Vital Signs BP 116/80 01/12/23 09:14 BMI result Body Mass Index 39.8 Const General: cooperative, healthy appearing, no acute distress, well developed and alert Orientation/consciousness: patient oriented x3 HEENT Head: Yes normal to inspection Eyes General: appearance normal, both eyes and all related structures Neck Neck: Yes normal visual inspection Thyroid: Thyroid normal Chest Chest palpation & inspection: normal inspection of the chest and other (no puckering, dimpling, peau de orange, retraction, discharge, masses) Breast/axilla inspection: normal inspection of the breasts Breast/axilla palpation: normal palpation of the breasts Resp Effort & Inspection: normal respiratory effort GI Inspection: Yes normal to inspection Palpation (GI): Soft to palpation Rectal Exam - Female: deferred General: Yes bladder normal to palpation External Female Exam: normal external appearance and normal appearance of the urethra Speculum Exam - Vagina: normal appearance of the vagina, normal palpation and normal vaginal discharge Speculum Exam - Cervix: normal appearance of the cervix and normal palpation Bimanual exam- vagina & uterus: normal bimanual exam, normal palpation, uterine size normal, bladder normal to palpation, normal palpation and non-tender Bimanual Exam- Adnexa, other: no masses Skin General skin exam: no rashes or lesions noted Rashes: no rashes Neuro General: patient oriented x3 Cognition (Neuro): normal cognition Extrem General: Yes normal to inspection Psych Attitude: cooperative Thought process: Normal thought process present Assessment & Plan Assessment & Plan (1) Encounter for well woman exam with routine gynecological exam: Code(s): Z01.419 - Encounter for gynecological examination (general) (routine) without abnormal findings (2) Mastalgia: Code(s): N64.4 - Mastodynia Plan Discussed: Current recommendations for pap smears per ASCCP guidelines. Breast awareness and periodic breast exams. Maintain a healthy lifestyle including a well balanced diet and routine exercise. Use condoms for STI and prevention. Sign up for the patient portal if not already enrolled. Sign a release of government services professional records for [facility]. Return to the office after the completion of the breast images. All of her questions and concerns were addressed to the best of my ability. RTO in one year for annual government services professional examination. Orders: Orders CT NG by PCR Today Z20.2 - Contact with and (suspected) exposure to infections with a predominantly sexual mode of transmission Pap Smear Today Z01.419 - Encounter for gynecological examination (general) (routine) without abnormal findings US breast RT complete Today N64.4 - Mastodynia MM tomosynthesis diagnostic BI Today N64.4 - Mastodynia, Z12.31 - Encounter for screening mammogram for malignant neoplasm of breast Hepatitis C Antibody Today Z20.2 - Contact with and (suspected) exposure to infections with a predominantly sexual mode of transmission Hepatitis B Core Antibody Today Z20.2 - Contact with and (suspected) exposure to infections with a predominantly sexual mode of transmission HIV Ab/Ag Today Z20.2 - Contact with and (suspected) exposure to infections with a predominantly sexual mode of transmission Syphilis Screen Today Z20.2 - Contact with and (suspected) exposure to infections with a predominantly sexual mode of transmission Medications: New PNV,calcium 35-nqwl-dodiv acid 27 mg iron- 1 mg ( Vitamins Plus Low Iron) 1 tab PO DAILY 90 tabs 4RF Coding Level of Care Code Est Pt Prev Care 18-39y(49621) Diagnoses Encounter for well woman exam with routine gynecological exam Z01.419 Mastalgia N64.4
[2023-01-12 09:14] VITALS: BP 116/80; BMI 39.8
== END 2023-01-12 09:50 | disposition home or self-care (01) ==
LOC: HO.HWS 09:08
PROVIDERS: PCP Registered Nurse; Visit Provider Advanced Practice Midwife
DX: Z01.419 Encounter for gynecological examination (general) (routine) without abnormal findings (principal); N64.4 Mastodynia
CPT/HCPCS: 99395

== ENCOUNTER 2023-01-12 09:08 | Outpatient (REF) | payer MEDICAID, SELFPAY ==
[2023-01-12 18:46] LABS: CT PCR NOT DETECTED (Not Detect.); NG PCR NOT DETECTED (Not Detect.)
[2023-01-16 04:29] LABS: HPV mRNA E6/E7 rflx Not Detected (Not Detected)
== END 2023-01-12 09:09 | disposition home or self-care (01) ==
LOC: HO.LNP 09:08
PROVIDERS: PCP Registered Nurse; Visit Provider Advanced Practice Midwife
DX: Z01.419 Encounter for gynecological examination (general) (routine) without abnormal findings (principal); Z11.51 Encounter for screening for human papillomavirus (HPV); Z20.2 Contact with and (suspected) exposure to infections with a predominantly sexual mode of transmission
CPT/HCPCS: 0353U; 87624; 88142; 99395

== ENCOUNTER 2023-01-14 13:21 | Outpatient (REF) | payer MEDICAID, SELFPAY | END 2023-01-14 13:22 | disposition home or self-care (01) | LOC: HO.US 13:21 | PROVIDERS: PCP Registered Nurse; Visit Provider Student in an Organized Health Care Education/Training Program | DX: Z13.89 Encounter for screening for other disorder (principal) ==

== ENCOUNTER 2023-02-10 13:56 | Outpatient (REF) | payer MEDICAID, SELFPAY | END 2023-02-10 13:57 | disposition home or self-care (01) | LOC: HO.MAMMO 13:56 | PROVIDERS: PCP Student in an Organized Health Care Education/Training Program; Visit Provider Advanced Practice Midwife | DX: N64.4 Mastodynia (principal) | CPT/HCPCS: 76642; 77062; 77066 ==

== ENCOUNTER → 2023-02-10 14:00 | Outpatient (BNV) | payer MEDICAID, SELFPAY | PROVIDERS: PCP Student in an Organized Health Care Education/Training Program; Visit Provider Radiology Diagnostic Radiology | DX: N64.4 Mastodynia (principal) | CPT/HCPCS: 76642; 77062; 77066 ==

== ENCOUNTER 2023-02-12 09:53 | Outpatient (REF) | payer MEDICAID, SELFPAY | END 2023-02-12 09:54 | disposition home or self-care (01) | LOC: HO.LAB 09:53 | PROVIDERS: PCP Student in an Organized Health Care Education/Training Program; Visit Provider Internal Medicine Endocrinology, Diabetes & Metabolism | DX: Z20.2 Contact with and (suspected) exposure to infections with a predominantly sexual mode of transmission (principal) | CPT/HCPCS: 36415; 86704; 86780; 86803; 87389 ==

== ENCOUNTER 2023-02-16 11:07 | Outpatient (REF) | payer MEDICAID, SELFPAY ==
--- NOTE | ~2023-02-16 | US_ITS ---
EXAMINATION: US PELVIS CLINICAL INFORMATION: History of hirsutism and ovarian cysts. Last menstrual period February COMPARISON: Pelvic ultrasound of 10/23/2020. TECHNIQUE: Ultrasound of the pelvis is performed using both transabdominal and transvaginal transducers along with Doppler. Transvaginal imaging is performed due to inadequate visualization transabdominally. FINDINGS: The uterus measures 9.8 x 4.4 x 5.4 cm. No discrete fibroids are appreciated. Nabothian cysts identified in the cervix. No significant free fluid in the pelvis. Endometrial thickness is 0.8 cm. Left ovary measures 3.3 x 1.4 x 2.0 cm, volume 4.84 mL and is unremarkable. Right ovary measures 3.3 x 1.9 x 2.3 cm, volume 7.55 mL. Right ovarian 1.0 x 1.2 x 0.5 cm hyperechoic area previously measured 1.1 x 0.6 x 0.4 cm on 10/23/2020 and 1.5 x 0.7 x 1.2 cm on 08/19/2020. US/US pelvic and transvaginal IMPRESSION: 1. Right ovarian 1.2 x 1.2 x 0.5 cm hyperechoic area previously measured 1.1 x 0.6 x 0.4 cm on 10/23/2020 and 1.5 x 0.7 x 1.2 cm on 08/19/2020. 2. Endometrial thickness is 8 mm.
== END 2023-02-16 11:08 | disposition home or self-care (01) ==
LOC: HO.US 11:07
PROVIDERS: PCP Student in an Organized Health Care Education/Training Program; Visit Provider Student in an Organized Health Care Education/Training Program
DX: L68.0 Hirsutism (principal)
CPT/HCPCS: 76830; 76856

== ENCOUNTER 2023-02-18 09:57 | Outpatient (AMB) | payer MEDICAID, SELFPAY ==
--- NOTE | 2023-02-18 10:02 | MHC.OFFVIS ---
Intake Vital Signs 02/18/23 10:09 Height 5 ft 4 in Weight 231 lb BMI 39.6 BP 118/62 Blood Pressure Location Rt brachial Position Sitting Pulse 72 Pulse Source Pulse Oximeter Pulse Oximetry (%) 97 Oxygen Delivery Method Room Air Intake Visit Reasons: xray results/ procedure discussion/SMS sent Intake Note: Pain today [employer] Laboratory Director Required: No Accompanied by: Self / Same As Patient Allergies No Known Allergies Allergy (Verified 02/18/23 10:10) HPI HPI Comments History of Present Illness Details Patient presents today to review left shoulder and cervical spine xray results and discuss potential interventional treatments. Patient continues to endorse neck pain with movements and muscle spasms. neck pain extends to both of her shoulders. Xray results reviewed with patient and are noted below. She continues daily home exercise program from previously learned exercises at PT, Tylenol and NSAIDs with minimal improvement in her symptoms. Pain increases with daily activities and house chores. She Denies any recent cough, cold, infection, fever or other significant changes in medical history since last office visit. PRIOR: Patient is a pleasant 37 years old female presents today for initial evaluation of chronic neck and bilateral shoulder pain. Right hand dominant. Reports remote mechanical fall injury in 2008 when she was moving out from her apartment due to another unit and fell backwards on her back. She reports loosing consciousness at the time of her fall and was brought by ambulance to [facility] ER for evaluation and was admitted for 3 days. She states she had a neck metal collar for one week and this was changed to soft plastic neck collar for 6 months. Denies spine surgery or injections. Reports weakness and numbness of LUE with lifting, pulling or carrying a purse or bag. Significant tenderness left upper trapezius. EMG study on 09/16/22 was normal for left upper extremity. Today she presents with neck pain with all movements, especially with cervical extension, left-sided rotation or bending. She reports dizziness when looking down however this was not reproduced today. Patient also has bilateral shoulder pain, minimal pain on the right shoulder and significant pain in the left shoulder is overhead reaches or backside pocket reaches. She reports completing several courses of physical therapy which have worsened her symptoms and prompted her to discontinue therapy. Last cervical spine MRI was done in 2009 at [facility], this report is not available today. Pain is constant and is rated at 8/10 today, 10/10 worse pain and 5/10 least pain. Patient denies any fever, chills, chest pain, headache, shortness of breath, gait imbalances, weakness, bladder or bowel dysfunction or saddle anesthesia. Location Bilateral shoulder pain, neck, radiates to lower back Duration Chronic pain since 2008 due to fall injury Characteristics of symptom or complaint Aching, throbbing, pulsing, burning, spasming , numbness (left neck) Aggravating or associated factors Lifting/carrying, movements, cold weather changes Relieving factors Lidocaine patches, topical cream, heat therapy, massage, Flexeril Treatment PT- 2009, [id number], EMG 09/30-normal [facility] Medical History Internal and external bleeding hemorrhoids Pruritus ani Migraine Anxiety B12 deficiency Vitamin D deficiency Obesity Postablative hypothyroidism Surgical History Hx of dilation and curettage Family History Father Cancer Mother Hypertension Diabetes High cholesterol CVD (cardiovascular disease) Social History Household Members Other:: daughter Housing: House Alcohol intake: never Patient Tobacco Use Status: Never used Tobacco Current occupational status: unemployed Sexual orientation: Straight/Heterosexual Gender identity: Female Review of Systems Const All systems reviewed & are unremarkable except as noted in HPI and below Neuro Reports Abnormal speech present Physical Exam General: Appears afebrile. Alert and oriented. Mood and affect appropriate. Follows and participates in conversation appropriately. Respiratory effort is unlabored. No cough. Able to transition from sit to stand unassisted. Ambulates with bilaterally normal heel strike and toe off. Neck Other: Patient with decreased cervical ROM in all planes/especially with left lateral rotation. Reports increased pain with cervical extension and flexion, worse with flexion. Spurling compression test negative. Pain is unchanged by Spurling maneuver with retraction. Elvey's tension test negative bilaterally. Lhermitte's test was negative. DTR intact, +2 and symmetrical. Patient demonstrated 5/5 right and 4/5 left motor strength of bilateral upper extremities. 2 + radial pulses. Significant tightness throughout left upper trapezius as well as TTP throughout bilateral upper trapezius muscles. No paravertebral tenderness over facet joints bilaterally. Multiple taut bands palpated throughout bilateral upper trapezius muscles. No clonus. Poor posture with forward head posture. Neck: Yes no lymphadenopathy, Yes supple, No anterior neck swelling, Yes no JVD and Yes prominent dorsocervical fat pad Back/Spine/Pelvis Cervical Spine: loss of normal cervical lordosis, cervical muscular tenderness, pain with cervical ROM, No Cervical spine scars present, cervical spasm and No Cervical spine tenderness Thoracic/Lumbar Spine: thoracic and lumbar spine normal to inspection, No Thoracic/lumbar spine scar(s), thoraco-lumbar ROM normal, Lasegue's sign negative, straight leg raise negative bilaterally, paraspinal muscle tenderness, No thoracic spinal tenderness and No lumbar spinal tenderness Neuro General: Normal light touch and pain sensation, CN's II-XI intact bilaterally and deep tendon reflexes 2+ bilaterally Cranial nerves: Yes Bilaterally intact EOM present and Yes Normal facial strength present Speech: Abnormal speech present Gait exam (Neuro): Normal gait present Motor exam (neuro): 5/5 motor strength present throughout Extrem General: Yes full ROM, Yes capillary refill normal, Yes no clubbing, cyanosis or edema and Yes no calf tenderness Results Reviewed Results Reviewed: 09/16/22 XR CERVICAL SPINE 01/05/23 CLINICAL INFORMATION: Pain. COMPARISON: CT cervical spine dated 12/03/2010. TECHNIQUE: Frontal, odontoid, bilateral oblique and lateral views of the cervical spine are obtained. FINDINGS: Vertebral body heights are normal. At C5-C6, there is moderate disc space narrowing, with a 2 mm anterolisthesis. The remaining disc spaces are well-maintained. No acute fracture or spondylolisthesis is seen. There is mild anterior spondylosis extending from C3-C4 through C5-C6. The posterior elements are intact. The bilateral neural foramina appear patent. There is no prevertebral soft tissue swelling. The dens and C7-T1 interface are normal. IMPRESSION: 1. There is moderate degenerative disease at C5-C6. 2. No acute fracture or spondylolisthesis is seen. 3. There is mild anterior spondylosis extending from C3-C4 through C5-C6. XR SHOULDER, LEFT 01/05/23 CLINICAL INFORMATION: Pain. COMPARISON: None available. TECHNIQUE: AP external rotation, Grashey, scapular Y, and axillary views of the left shoulder. FINDINGS: The bones and soft tissues are normal. No fracture. Glenohumeral and acromioclavicular alignment is anatomic with normal joint space. No abnormal soft tissue calcifications. IMPRESSION: Normal left shoulder. Assessment & Plan Assessment & Plan (1) Muscle spasms of neck: Code(s): M62.838 - Other muscle spasm (2) Cervical spondylosis: Code(s): M47.812 - Spondylosis without myelopathy or radiculopathy, cervical region (3) Bilateral shoulder pain: Code(s): M25.511 - Pain in right shoulder; M25.512 - Pain in left shoulder Plan 1. Continue home exercise program, gentle neck stretching exercises, good posture, weight loss and adequate daily hydration. 2. Script sent for Zynex TENS unit device. Informational booklet provided for patient. Educated patient on application and frequency of TENS unit device use. 3. For axial cervical spine pain, will schedule Bilateral Diagnostic C4-C5-C6 MBBs with local and fluoroscopy. If she has significant relief from the diagnostic blocks for her neck pain, will consider either therapeutic injections, Sprint PNS or RFA depending on her preference. Informational booklets were provided to patient. Expectations, risks and benefits were reviewed. Patient is aware she will be contacted to schedule this procedure. All questions were answered and the patient is in agreement of plan. Follow-up after injections and sooner as needed. Coding Level of Care Code Est Pt Level 4 (95835) Diagnoses Muscle spasms of neck M62.838 Cervical spondylosis M47.812 Bilateral shoulder pain M25.511; M25.512
[2023-02-18 10:09] VITALS: BP 118/62; PULSE 72; O2SAT 97; BMI 39.6
== END 2023-02-18 10:34 | disposition home or self-care (01) ==
PROVIDERS: PCP Student in an Organized Health Care Education/Training Program; Visit Provider Nurse Practitioner Family
DX: M62.838 Other muscle spasm (principal); M47.812 Spondylosis without myelopathy or radiculopathy, cervical region; M25.511 Pain in right shoulder; M25.512 Pain in left shoulder
CPT/HCPCS: 99214

== ENCOUNTER → 2023-02-18 09:57 | Outpatient (BNVA) | payer MEDICAID, SELFPAY | PROVIDERS: PCP Student in an Organized Health Care Education/Training Program; Visit Provider Nurse Practitioner Family | DX: M62.838 Other muscle spasm (principal); M47.812 Spondylosis without myelopathy or radiculopathy, cervical region; M25.511 Pain in right shoulder; M25.512 Pain in left shoulder | CPT/HCPCS: 99212 ==

== ENCOUNTER 2023-03-30 11:21 | Outpatient (REF) | payer MEDICAID, SELFPAY ==
[2023-03-31 09:18] LABS: BV Int Neg Control Negative (Negative); BV Int Pos Control Positive (Positive)
== END 2023-03-30 11:22 | disposition home or self-care (01) ==
LOC: HO.LAB 11:21
PROVIDERS: PCP Student in an Organized Health Care Education/Training Program; Visit Provider Advanced Practice Midwife
DX: N89.8 Other specified noninflammatory disorders of vagina (principal); L29.2 Pruritus vulvae; Z87.42 Personal history of other diseases of the female genital tract; Z71.2 Person consulting for explanation of examination or test findings
CPT/HCPCS: 87480; 87510; 87660; 99212

== ENCOUNTER 2023-03-30 11:21 | Outpatient (AMB) | payer MEDICAID, SELFPAY ==
[2023-03-30 11:33] VITALS: BP 132/90; BMI 39.5
--- NOTE | 2023-03-30 11:33 | A.OFFVIS_ITS ---
Intake Vital Signs 03/30/23 11:33 Height 5 ft 4 in Weight 230 lb BMI 39.5 BP 132/90 H Intake Visit Reasons: breast follow up Certified Driver Examiner: Certified Driver Examiner Present (Mini) Allergies No Known Allergies Allergy (Verified 03/30/23 11:33) Is last menstrual period known: Yes Last menstrual period: 02/27/23 HPI HPI Comments History of Present Illness Details Patient is here today for a follow-up breast imaging due to history of right breast pain. She reports that the pain has resolved, and has no other concerns with her breast. She does report that she has some increased discharge and some external itching, she has been using a leftover cream to soothe the outside. She denies any risk to STDs and declines STD testing today. [facility] Medical History Internal and external bleeding hemorrhoids Pruritus ani Migraine Anxiety B12 deficiency Vitamin D deficiency Obesity Postablative hypothyroidism Surgical History Hx of dilation and curettage Family History Father Cancer Mother Hypertension Diabetes High cholesterol CVD (cardiovascular disease) Social History Household Members Other:: daughter Housing: House Alcohol intake: never Patient Tobacco Use Status: Never used Tobacco Current occupational status: unemployed Sexual orientation: Straight/Heterosexual Gender identity: Female Female Reproductive History Menstrual Date of last menstrual period: 02/27/23 Review of Systems Const All systems reviewed & are unremarkable except as noted in HPI and below Reports no additional complaints Skin/Breast Reports system reviewed and no additional complaints, except as documented and Reports as per HPI Physical Exam Vital Signs: Last Vital Signs BP 132/90 H 03/30/23 11:33 BMI result Body Mass Index 39.5 Const General: cooperative, healthy appearing and no acute distress Orientation/consciousness: patient oriented x3 Chest Breast/axilla inspection: normal inspection of the breasts and normal inspection of the axillae Breast/axilla palpation: normal palpation of the breasts GI Inspection: Yes normal to inspection Palpation (GI): Soft to palpation and Other GI palpation findings present (Nontender) Rectal Exam - Female: visual inspection normal General: Yes bladder normal to palpation External Female Exam: normal appearance of the urethra Speculum Exam - Vagina: normal appearance of the vagina, normal palpation and abnormal vaginal discharge (White thick patches) Speculum Exam - Cervix: normal appearance of the cervix and normal palpation Bimanual exam- vagina & uterus: normal bimanual exam, normal palpation, uterine size normal, bladder normal to palpation, normal palpation, uterine shape normal and non-tender Bimanual Exam- Adnexa, other: normal adnexae Skin General skin exam: no rashes or lesions noted Neuro General: patient oriented x3 Results Reviewed [facility]ed[facility] [address] [place] [address] Ultrasound Report Signed Patient: Catalina Wood MR#: [id number] : 1985 Acct:[id number] Age/Sex: 37 / F ADM Date: 02/10/23 Loc: HO.MAMMO Attending Dr: Sparkle Maldonado CNM Ordering Physician: Sparkle Maldonado CNM Date of Service: 02/10/23 Procedure(s): US breast RT limited mamm only Accession Number(s): [id number] cc: Sparkle Maldonado CNM; Roberta Burroughs MD~ EXAMINATION: MM DIAGNOSTIC DIGITAL BREAST TOMOSYNTHESIS, BILATERAL US BREAST LIMITED, RIGHT MAMMOGRAPHY: CLINICAL INFORMATION: 37-year-old female complaining of right breast pain spanning 10-12 o'clock axis. COMPARISON: Mammography: None. Baseline exam. TECHNIQUE: Digital breast tomosynthesis is performed in both the craniocaudal and mediolateral oblique views along with computer-aided detection (CAD). Synthesized 2D images are generated from the tomosynthesis. FINDINGS: The breasts are heterogeneously dense, which may obscure small masses (ACR BI-RADS breast composition Category c). There are no significant masses, abnormal calcifications, or other abnormalities, in either breast. The area of breast pain at the 10-12 o'clock region demonstrates no mammographic abnormality. There are no skin or axillary changes. ULTRASOUND: CLINICAL INFORMATION: 37-year-old female complaining of right breast pain spanning 10-12 o'clock axis. COMPARISON: None TECHNIQUE: Targeted sonographic evaluation was performed using a high frequency linear transducer. Attention was given to the region of pain spanning the 9:00 to 2:00 axis right breast. Selected archived documentation. FINDINGS: RIGHT BREAST: There is a mixture of fatty and fibroglandular tissue. No suspicious mass is seen. There is no pathologic acoustic shadowing. There are no cystic abnormalities. US/US breast RT limited mamm only IMPRESSION: No findings suspicious for malignancy. No mammographic or sonographic correlate to the region of breast pain within the right breast spanning the 10-12 o'clock axis. Recommend clinical management. OVERALL ASSESSMENT: Mammography: BI-RADS 1 - Negative Ultrasound: BI-RADS 1 - Negative RECOMMENDATION: 1. Patient should be managed based on the clinical impression. 2. Otherwise, routine annual screening mammography in one year. Results were provided to the patient at time of visit by the technologist. This patient's information was entered into a reminder system with a target due date for their next mammogram. Dictated By: Mejia Torres MD Signed By: <Electronically signed by Mejia Torres MD in OV> 02/10/23 1625 DD/ 1451 TD/TT: Cyber Systems Administrator: Assessment & Plan Assessment & Plan (1) Encounter to discuss test results: Code(s): Z71.2 - Person consulting for explanation of examination or test findings (2) History of breast pain: Code(s): Z87.42 - Personal history of other diseases of the female genital tract (3) Vulvar itching: Code(s): L29.2 - Pruritus vulvae Plan Discussed: Ultrasound findings-normal of breast imaging. BV panel obtained, await test results for plan of care and treatment. Discussed heavy menstrual bleeding, patient is on interested in taking any control for her cycles. Admits she does not take her thyroid medicine consistently and is trying to improve on that. Last H&H was in normal range. Advised to call if she does decide she wants to do hormones for cycle control. All of her questions and concerns were addressed to the best of my ability and shared decision making. She is agreeable to the plan of care. This note is constructed using voice recognition software. While every effort has been made to ensure accuracy, billet cutter errors may have been included. Orders: Orders Bacterial Vaginosis Panel Today N89.8 - Other specified noninflammatory disorders of vagina Coding Level of Care Code Est Pt Level 3 (07412) Diagnoses Encounter to discuss test results Z71.2 History of breast pain Z87.42 Vulvar itching L29.2
== END 2023-03-30 13:48 | disposition home or self-care (01) ==
LOC: HO.HWS 11:21
PROVIDERS: PCP Student in an Organized Health Care Education/Training Program; Visit Provider Advanced Practice Midwife
DX: Z71.2 Person consulting for explanation of examination or test findings (principal); Z87.42 Personal history of other diseases of the female genital tract; L29.2 Pruritus vulvae
CPT/HCPCS: 99213

== ENCOUNTER 2023-04-01 08:58 | Outpatient (AMB) | payer MEDICAID, SELFPAY ==
--- NOTE | 2023-04-01 08:59 | MHC.OFFVIS ---
Intake Vital Signs 04/01/23 09:00 Height 5 ft 4 in Weight 231 lb BMI 39.6 BP 132/78 Blood Pressure Location Rt brachial Position Sitting Pulse 84 Pulse Source Doppler Pulse Oximetry (%) 98 Oxygen Delivery Method Room Air Intake Visit Reasons: dyspnea Allergies No Known Allergies Allergy (Verified 04/01/23 09:05) HPI dyspnea HPI Details 37-year-old lady, lifetime nonsmoker, with underlying history of obesity and asthma, followed for underlying mild persistent asthma and hyperventilation. Patient is also having her sleep apnea worked up by sleep medicine.? Her symptoms were previously well controlled on Wixela 250 and albuterol MDI, however patient has ran out of it and her symptom control has worsened.? She does have intermittent episodes anxiety with hyperventilation and acral paresthesias. [facility] Medical History Internal and external bleeding hemorrhoids Pruritus ani Migraine Anxiety B12 deficiency Vitamin D deficiency Obesity Postablative hypothyroidism Surgical History Hx of dilation and curettage Family History Father Cancer Mother Hypertension Diabetes High cholesterol CVD (cardiovascular disease) Social History Household Members Other:: daughter Housing: House Alcohol intake: never Patient Tobacco Use Status: Never used Tobacco Current occupational status: unemployed Sexual orientation: Straight/Heterosexual Gender identity: Female Review of Systems Const Denies daytime sleepiness, Denies excessive sweating, Denies fatigue, Denies fever(s), Denies lethargy, Denies malaise, Denies night sweats, Denies snoring and Denies weight loss Eyes Denies blurry vision and Denies itchy eyes ENT Denies nasal congestion, Denies post nasal drip, Denies sinus pain, Denies sinus pressure and Denies other ( Thrush) Card Denies chest pain, Denies pedal edema, Denies dyspnea, Reports dyspnea on exertion, Denies orthopnea and Denies paroxysmal nocturnal dyspnea Resp Denies cough, Denies hemoptysis, Denies excessive phlegm production, Denies dyspnea, Reports dyspnea on exertion, Denies snoring and Denies wheezing GI Denies abdominal pain and Denies heartburn Musc Denies myalgias, Denies arthralgias and Denies joint swelling Skin/Breast Denies rash Neuro Denies memory loss and Denies seizure-like activity Psych Denies abnormal sleep pattern, Denies anxiety and Denies memory loss Endo Denies excessive sweating, Denies fatigue and Denies heat intolerance Trent/Lymph Denies easy bruising Aller/Immun Denies itchy eyes, Denies seasonal rhinorrhea and Denies wheezing Physical Exam Vital Signs: Last Vital Signs Pulse 84 04/01/23 09:00 BP 132/78 04/01/23 09:00 Pulse Ox 98 04/01/23 09:00 Oxygen Delivery Method Room Air 04/01/23 09:00 BMI result Body Mass Index 39.6 Const General: no acute distress and alert Nutritional Appearance: obese Orientation/consciousness: Other orientation findings ( oriented) HEENT Head: Yes atraumatic Eyes General: appearance normal, both eyes and all related structures Sclerae: sclerae normal EOM: EOMs intact bilaterally Neck Neck: Yes supple Lymphatic: no lymphadenopathy noted Resp Effort & Inspection: normal respiratory effort and no use of accessory muscles Auscultation: clear to auscultation bilaterally Cardio Rate: regular rate Rhythm: regular rhythm Heart sounds: no gallops, no murmurs and no rubs Skin General skin exam: other ( warm) Extrem General: No clubbing, No cyanosis and No edema Assessment & Plan Assessment & Plan (1) Allergic asthma: Code(s): J45.909 - Unspecified asthma, uncomplicated Plan: Suboptimal control as patient has ran out of Wixela and albuterol. Restart Wixela and albuterol. (2) Dyspnea on exertion: Code(s): R06.09 - Other forms of dyspnea Plan: Appears to be multifactorial with contribution from underlying pulmonary, anxiety, and deconditioning etiologies. (3) Anxiety: Code(s): F41.9 - Anxiety disorder, unspecified Plan: With hyperventilation previously controlled on hydroxyzine. At this time patient is not interested in restarting hydroxyzine. Continue to monitor clinically. Medications: Changed From albuterol sulfate 90 mcg/actuation (ProAir HFA) 2 puffs inhalation Q6H PRN To albuterol sulfate 90 mcg/actuation (ProAir HFA) 2 puffs inhalation Q6H PRN 1 ea 6RF shortness of breath or wheezing 30 days Refilled fluticasone propion-salmeterol 250-50 mcg/dose (Wixela Inhub) 1 inh inhalation BID 1 ea 6RF 30 days Coding Level of Care Code Est Pt Level 4 (27265) Diagnoses Allergic asthma J45.909 Dyspnea on exertion R06.09 Anxiety F41.9
[2023-04-01 09:00] VITALS: BP 132/78; PULSE 84; O2SAT 98; BMI 39.6
== END 2023-04-01 09:15 | disposition home or self-care (01) ==
PROVIDERS: PCP Student in an Organized Health Care Education/Training Program; Visit Provider Internal Medicine Pulmonary Disease
DX: J45.909 Unspecified asthma, uncomplicated (principal); R06.09 Other forms of dyspnea; F41.9 Anxiety disorder, unspecified
CPT/HCPCS: 99214

== ENCOUNTER → 2023-04-01 08:58 | Outpatient (BNVA) | payer MEDICAID, SELFPAY | PROVIDERS: PCP Student in an Organized Health Care Education/Training Program; Visit Provider Internal Medicine Pulmonary Disease | DX: J45.909 Unspecified asthma, uncomplicated (principal); R06.09 Other forms of dyspnea; F41.9 Anxiety disorder, unspecified | CPT/HCPCS: 99212 ==

== ENCOUNTER 2023-05-04 11:31 | Outpatient (AMB) | payer MEDICAID, SELFPAY ==
[2023-05-04 11:33] VITALS: BP 122/82; PULSE 78; O2SAT 97; BMI 39.6
--- NOTE | 2023-05-04 11:33 | A.OFFVIS_ITS ---
Intake Vital Signs 05/04/23 11:33 Height 5 ft 4 in Weight 231 lb BMI 39.6 BP 122/82 Blood Pressure Location Rt brachial Position Sitting Pulse 78 Pulse Source Doppler Pulse Oximetry (%) 97 Oxygen Delivery Method Room Air Intake Visit Reasons: dyspnea Allergies No Known Allergies Allergy (Verified 05/04/23 11:37) HPI dyspnea HPI Details 37-year-old lady, lifetime nonsmoker, wi th underlying history of obesity and asthma, followed for underlying mild persistent asthma and hyperventilation. patient symptoms reasonably well controlled on current regimen of Advair 250/50 and albuterol MDI. She also has been taking clonazepam for the anxiety component. [facility] Medical History Internal and external bleeding hemorrhoids Pruritus ani Migraine Anxiety B12 deficiency Vitamin D deficiency Obesity Postablative hypothyroidism Surgical History Hx of dilation and curettage Family History Father Cancer Mother Hypertension Diabetes High cholesterol CVD (cardiovascular disease) Social History Household Members Other:: daughter Housing: House Alcohol intake: never Patient Tobacco Use Status: Never used Tobacco Current occupational status: unemployed Sexual orientation: Straight/Heterosexual Gender identity: Female Review of Systems Const Denies daytime sleepiness, Denies excessive sweating, Denies fatigue, Denies fever(s), Denies lethargy, Denies malaise, Denies night sweats, Denies snoring and Denies weight loss Eyes Denies blurry vision and Denies itchy eyes ENT Denies nasal congestion, Denies post nasal drip, Denies sinus pain, Denies sinus pressure and Denies other ( Thrush) Card Denies chest pain, Denies pedal edema, Denies dyspnea, Denies orthopnea and Denies paroxysmal nocturnal dyspnea Resp Denies cough, Denies hemoptysis, Denies excessive phlegm production, Denies dyspnea, Denies snoring and Denies wheezing GI Denies abdominal pain and Denies heartburn Musc Denies myalgias, Denies arthralgias and Denies joint swelling Skin/Breast Denies rash Neuro Denies memory loss and Denies seizure-like activity Psych Denies abnormal sleep pattern, Denies anxiety and Denies memory loss Endo Denies excessive sweating, Denies fatigue and Denies heat intolerance Trent/Lymph Denies easy bruising Aller/Immun Denies itchy eyes, Denies seasonal rhinorrhea and Denies wheezing Physical Exam Vital Signs: Last Vital Signs Pulse 78 05/04/23 11:33 BP 122/82 05/04/23 11:33 Pulse Ox 97 05/04/23 11:33 Oxygen Delivery Method Room Air 05/04/23 11:33 BMI result Body Mass Index 39.6 Const General: no acute distress and alert Nutritional Appearance: obese Orientation/consciousness: Other orientation findings ( oriented) HEENT Head: Yes atraumatic Eyes General: appearance normal, both eyes and all related structures Sclerae: sclerae normal EOM: EOMs intact bilaterally Neck Neck: Yes supple Lymphatic: no lymphadenopathy noted Resp Effort & Inspection: normal respiratory effort and no use of accessory muscles Auscultation: clear to auscultation bilaterally Cardio Rate: regular rate Rhythm: regular rhythm Heart sounds: no gallops, no murmurs and no rubs Skin General skin exam: other ( warm) Extrem General: No clubbing, No cyanosis and No edema Assessment & Plan Assessment & Plan (1) Allergic asthma: Code(s): J45.909 - Unspecified asthma, uncomplicated Plan: Improved control on Advair 250/50 and albuterol MDI. Patient did have some difficulty using the Advair Diskus, but now is more proficient with it. (2) Dyspnea on exertion: Code(s): R06.09 - Other forms of dyspnea Plan: Multifactorial with contribution from underlying pulmonary, obesity deconditioning, and related hyperventilation. Now reasonably well controlled. On clonazepam. No longer requires hydroxyzine. Coding Level of Care Code Est Pt Level 4 (95077) Diagnoses Allergic asthma J45.909 Dyspnea on exertion R06.09
== END 2023-05-04 11:47 | disposition home or self-care (01) ==
PROVIDERS: PCP Student in an Organized Health Care Education/Training Program; Referring Provider Student in an Organized Health Care Education/Training Program; Visit Provider Internal Medicine Pulmonary Disease
DX: J45.909 Unspecified asthma, uncomplicated (principal); R06.09 Other forms of dyspnea
CPT/HCPCS: 99214

== ENCOUNTER → 2023-05-04 11:31 | Outpatient (BNVA) | payer MEDICAID, SELFPAY | PROVIDERS: PCP Student in an Organized Health Care Education/Training Program; Visit Provider Internal Medicine Pulmonary Disease | DX: R06.09 Other forms of dyspnea (principal); J45.909 Unspecified asthma, uncomplicated | CPT/HCPCS: 99212 ==

== ENCOUNTER 2023-05-17 07:59 | Outpatient (REF) | payer MEDICAID, SELFPAY ==
[2023-05-17 08:13] LABS: MANUAL DIFF FLAG NO
[2023-05-17 09:00] LABS: Basophils Percent Auto 0.2 % (0-2); Eosinophils Absolute Auto 0.1 X10*3/uL (0.0-0.4); Eosinophils Percent Auto 1.6 % (0-4); Hematocrit 36.1 % (37.0-47.0); Hemoglobin 11.9 g/dl (12.0-16.0); Imm Gran Abs Auto 0.01 X10*3/uL (0.00-0.03); Imm Gran Pct Auto 0.2 % (0.0-0.4); Lymphocytes Absolute Auto 0.7 X10*3/uL (1.2-4.9); Lymphocytes Percent Auto 15.4 % (20-40); Mean Corpuscular Hemoglobin 28.7 pg (27.0-33.0); Mean Platelet Volume 11.1 fL (9.4-12.3); Monocytes Absolute Auto 0.3 X10*3/uL (0.1-1.2); Monocytes Percent Auto 6.3 % (2-11); Neutrophils Absolute Auto 3.3 x10*3/uL (2.0-8.3); Neutrophils Percent Auto 76.3 % (45-73); Platelet Count 180 X10*3/uL (160-400); Red Blood Count 4.15 X10*6/uL (4.20-5.50); Red Cell Distribution Width 12.6 % (11.0-16.0); White Blood Count 4.3 X10*3/uL (4.8-10.8)
[2023-05-17 09:38] LABS: Free T4 (Free Thyroxine) 1.47 ng/dL (0.71-1.85); Thyroid Stimulating Hormone 1.79 uIU/mL (0.32-4.0); Vitamin D 25-OH Total 15.7 ng/mL (>30)
== END 2023-05-17 08:00 | disposition home or self-care (01) ==
LOC: HO.LAB 07:59
PROVIDERS: PCP Student in an Organized Health Care Education/Training Program; Visit Provider Internal Medicine Endocrinology, Diabetes & Metabolism
DX: Z00.00 Encounter for general adult medical examination without abnormal findings (principal); E89.0 Postprocedural hypothyroidism
CPT/HCPCS: 36415; 82306; 84439; 84443; 85025

== ENCOUNTER 2023-05-20 10:27 | Outpatient (AMB) | payer MEDICAID, SELFPAY ==
--- NOTE | 2023-05-20 10:28 | A.OFFVIS_ITS ---
Intake Vital Signs 05/20/23 10:29 Height 5 ft 4 in Weight 230 lb 2.601 oz BMI 39.5 BP 128/88 Blood Pressure Location Rt brachial Position Sitting Pulse 79 Pulse Source Pulse Oximeter Intake Visit Reasons: f/u postablative hypothyroidism-lvm Intake Note: Patient present today for post ablative hypothyroidism follow up visit. Department Of Sociology Chair Required: No Accompanied by: Self / Same As Patient Allergies No Known Allergies Allergy (Verified 05/20/23 10:35) HPI HPI Comments History of Present Illness Details Patient is a 37-year-old female with hypothyroidism, who presents for [facility]. . She was continued on her current medication regimen. Patient reports treated with SEGOVIA ablation of thyroid in her 20s. Patient andressa Velázquez NP on 12/18 Patient complains of inability to loose weight, unexplained bruising and difficulty with becoming . She currently sees abrasive worker. Past Medical History: postablative hypothyroidism, B12 deficiency, Vitamin D deficiency Medications: Tirosint 137mcg for approximately 1 year ago. Takes fasting am sometimes with water or juice. Eats 2 hours later. About 3 times a week takes medication at bedtime when forgets in am, 1/2 hour to 1 hour after eating. Occasionally when forgets will take the next day. Symptoms: Reports cold intolerance,weight gain, regular periods, constipation, dry skin. Denies insomnia, fatigue, dry skin, tremors, palpitations, irritability, anxiety. Laboratory Tests 11/07/20 11/07/20 15:45 15:45 Vitamin B12 194 L 25-OH Vitamin D To bobo 22.6 TSH 12.64 H Free T4 1.15 PFSH Medical History Internal and external bleeding hemorrhoids Pruritus ani Migraine Anxiety B12 deficiency Vitamin D deficiency Obesity Postablative hypothyroidism Surgical History Hx of dilation and curettage Family History Father Cancer Mother Hypertension Diabetes High cholesterol CVD (cardiovascular disease) Social History Household Members Other:: daughter Housing: House Alcohol intake: never Patient Tobacco Use Status: Never used Tobacco Current occupational status: unemployed Sexual orientation: Straight/Heterosexual Gender identity: Female Physical Exam Vital Signs: Last Vital Signs Pulse 79 05/20/23 10:29 BP 128/88 05/20/23 10:29 BMI result Body Mass Index 39.5 Const Other: Thyroid gland is decreased in size weighs about 5 g. The no thyroid nodules palpated. Reflexes 2+ DP Assessment & Plan Assessment & Plan (1) Postablative hypothyroidism: Code(s): E89.0 - Postprocedural hypothyroidism Plan: This is a 37-year-old female with a history of post-ablated hypothyroidism currently replaced with 137 mcg of Tirosint . She appears to be clinically and biochemically euthyroid. Plan is continue the current management. At this point, patient can follow up with the primary care provider turn to endocrinology as needed Coding Level of Care Code Est Pt Level 3 (38282) Diagnoses Postablative hypothyroidism E89.0
[2023-05-20 10:29] VITALS: BP 128/88; PULSE 79; BMI 39.5
== END 2023-05-20 11:07 | disposition home or self-care (01) ==
PROVIDERS: PCP Registered Nurse; Referring Provider Registered Nurse; Visit Provider Internal Medicine Endocrinology, Diabetes & Metabolism
DX: E89.0 Postprocedural hypothyroidism (principal)
CPT/HCPCS: 99213

== ENCOUNTER → 2023-05-20 10:27 | Outpatient (BNVA) | payer MEDICAID, SELFPAY | PROVIDERS: PCP Registered Nurse; Visit Provider Internal Medicine Endocrinology, Diabetes & Metabolism | DX: E89.0 Postprocedural hypothyroidism (principal); E53.8 Deficiency of other specified B group vitamins; E55.9 Vitamin D deficiency, unspecified | CPT/HCPCS: 99212 ==

== ENCOUNTER 2023-06-15 07:42 | Outpatient (REF) | payer MEDICAID, SELFPAY ==
[2023-06-15 16:09] LABS: CT PCR NOT DETECTED (Not Detect.); NG PCR NOT DETECTED (Not Detect.)
[2023-06-16 09:26] LABS: BV Int Neg Control Negative (Negative); BV Int Pos Control Positive (Positive)
== END 2023-06-15 07:43 | disposition home or self-care (01) ==
LOC: HO.LAB 07:42
PROVIDERS: PCP Registered Nurse; Visit Provider Advanced Practice Midwife
DX: R10.2 Pelvic and perineal pain (principal); N76.0 Acute vaginitis
CPT/HCPCS: 0353U; 81003; 81025; 87086; 87480; 87510; 87660; 99212

== ENCOUNTER 2023-06-15 07:42 | Outpatient (AMB) | payer MEDICAID, SELFPAY ==
--- NOTE | 2023-06-15 07:47 | MHC.OFFVIS ---
Vital Signs 06/15/23 07:48 Height 5 ft 4 in Weight 230 lb BMI 39.5 BP 130/84 Intake Visit Reasons: Left ovary pain Payroll Accountant: Payroll Accountant Present (Mini) Allergies No Known Allergies Allergy (Verified 06/15/23 07:48) Is last menstrual period known: Yes Last menstrual period: 06/28/23 HPI Comments Details: Patient is here today with concerns that she has been having pain on her left lower ovary, she has a new intimate partner, she reports having vaginal itching over the last day. She denies any nausea vomiting diarrhea, admits to long history of constipation. She reports the pain in the left ovary like pressure as increased in severity, hours after intimacy. She reports recent vaginal or urine odor with frequency, symptoms were several weeks ago. History of a previous right hypoechoic area in the ovary measuring 1.2 x 1.2 x 1.2 x 0.05, previous scan in 2020 reports the dimensions were 1.5 x 0.7 x 1.2. She is concerned she has a history of infertility seen at [facility] 4 years ago had what she describes as a hysterosalpingogram, is concerned because she tried to reach the nursery technician and never got a call back after multiple attempts. UPT is negative today. [facility] Medical History Internal and external bleeding hemorrhoids Pruritus ani Migraine Anxiety B12 deficiency Vitamin D deficiency Obesity Postablative hypothyroidism Surgical History Hx of dilation and curettage Family History Father Cancer Mother Hypertension Diabetes High cholesterol CVD (cardiovascular disease) Social History Household Members Other:: daughter Housing: House Alcohol intake: never Patient Tobacco Use Status: Never used Tobacco Current occupational status: unemployed Sexual orientation: Straight/Heterosexual Gender identity: Female Female Reproductive History Menstrual Date of last menstrual period: 06/28/23 Review of Systems Const All systems reviewed & are unremarkable except as noted in HPI and below Physical Exam Vital Signs: Last Vital Signs BP 130/84 06/15/23 07:48 BMI result Body Mass Index 39.5 Const General: cooperative, healthy appearing and no acute distress Orientation/consciousness: patient oriented x3 GI Inspection: Yes normal to inspection Palpation (GI): Soft to palpation and Other GI palpation findings present (Nontender) Rectal Exam - Female: visual inspection normal Other: External labial erythema General: Yes bladder normal to palpation External Female Exam: normal appearance of the urethra Speculum Exam - Vagina: normal appearance of the vagina, normal palpation and normal vaginal discharge Speculum Exam - Cervix: normal appearance of the cervix and normal palpation Bimanual exam- vagina & uterus: normal bimanual exam, normal palpation, uterine size normal, bladder normal to palpation, normal palpation, uterine shape normal and non-tender Bimanual Exam- Adnexa, other: normal adnexae Neuro General: patient oriented x3 Results AMB Urinalysis, Automated UA Leukoctes 2 Hallie/uL Last Edit by KOURTNEY Paniagua on 06/15/23 08:00 UA Nitrite Negative Last Edit by KOURTNEY Paniauga on 06/15/23 08:00 UA Urobilinogen 0 mg/dL Last Edit by KOURTNEY Paniagua on 06/15/23 08:00 UA Protein 0.5 mg/dL Last Edit by KOURTNEY Paniagua on 06/15/23 08:00 UA pH 5.5 Last Edit by KOURTNEY Paniagua on 06/15/23 08:00 UA Blood 0 Jose Luis/uL Last Edit by KOURTNEY Paniagua on 06/15/23 08:00 UA Specific [place] 1.030 Last Edit by KOURTNEY Paniagua on 06/15/23 08:00 UA Ketone Negative Last Edit by KOURTNEY Paniagua on 06/15/23 08:00 UA Bilirubin 0 mg/dL Last Edit by KOURTNEY Paniagua on 06/15/23 08:00 UA Glucose 0 mg/dL Last Edit by KOURTNEY Paniagua on 06/15/23 08:00 AMB Test Urine AMB Test Urine Negative Last Edit by KOURTNEY Paniagua on 06/15/23 08:00 Results Reviewed Results Reviewed: Laboratory Last Values Urine pH (Auto) 5.5 06/15/23 07:58 Specific [place] (Auto) 1.030 06/15/23 07:58 Urine Protein (Auto) 0.5 mg/dL 06/15/23 07:58 Glucose (UA)(Auto) 0 mg/dL 06/15/23 07:58 Urine Ketones (Auto) Negative 06/15/23 07:58 Urine Blood (Auto) 0 Jose Luis/uL 06/15/23 07:58 Urine Nitrite (Auto) Negative 06/15/23 07:58 Urine Bilirubin (Auto) 0 mg/dL 06/15/23 07:58 Urine Urobilinogen (Auto) 0 mg/dL 06/15/23 07:58 Leukocyte Esterase (Auto) 2 Hallie/uL 06/15/23 07:58 Tst Clinic Negative 06/15/23 07:58 Assessment & Plan Assessment & Plan (1) Pelvic pain: Code(s): R10.2 - Pelvic and perineal pain (2) Vaginitis: Code(s): N76.0 - Acute vaginitis Qualifiers: Chronicity: acute Qualified Code(s): N76.0 - Acute vaginitis Plan Discussed: Workup for pelvic pain to include ultrasound, GC chlamydia, BV panel, urinalysis,. Follow up pending ultrasound and lab work. Advised to go to the emergency room if pain becomes prolonged or severe, may use [id number] heating pad or Tylenol as needed for discomfort. Avoid intimacy while uncomfortable. Instructions: Clean with warm water, no soaps, scented products. Wear loose, cotton underclothes, avoid tight outer clothing. Air when possible. No coitus until well healed. Complete all medications as prescribed. Await final pending results for any changes in the plan of care. Call the office if there is no improvement in 24-48hrs., or if worsening symptoms. A sign a release for [facility] ship erector records. Also discuss with her calling the infertility team there to go back in received care. All of her questions and concerns were addressed to the best of my ability and shared decision making. She is agreeable to the plan of care. This note is constructed using voice recognition software. While every effort has been made to ensure accuracy, construction safety manager errors may have been included. Orders: Orders AMB Urinalysis Automated Today R10.2 - Pelvic and perineal pain US pelvic and transvaginal Today R10.2 - Pelvic and perineal pain AMB HCG Urine Test Today R10.2 - Pelvic and perineal pain Urine Culture Today R10.2 - Pelvic and perineal pain Bacterial Vaginosis Panel Today N89.8 - Other specified noninflammatory disorders of vagina, R10.2 - Pelvic and perineal pain CT NG by PCR Today N89.8 - Other specified noninflammatory disorders of vagina, R10.2 - Pelvic and perineal pain Medications: New clotrimazole-betamethasone 1-0.05 % apply externally a thin coat to the area 1 appl topical BID 7 days 45 grams 0RF itching Coding Level of Care Code Est Pt Level 4 (02638) Diagnoses Pelvic pain R10.2 Acute vaginitis N76.0 Chronicity: acute
[2023-06-15 07:48] VITALS: BP 130/84; BMI 39.5
== END 2023-06-15 09:24 | disposition home or self-care (01) ==
PROVIDERS: PCP Registered Nurse; Visit Provider Advanced Practice Midwife
DX: R10.2 Pelvic and perineal pain (principal); N76.0 Acute vaginitis
CPT/HCPCS: 99214

== ENCOUNTER 2023-06-15 07:58 | Outpatient (REF) | payer MEDICAID, SELFPAY | END 2023-06-15 07:59 | disposition home or self-care (01) | LOC: HO.LNP 07:58 | PROVIDERS: Visit Provider Advanced Practice Midwife | DX: Z13.89 Encounter for screening for other disorder (principal) ==

== ENCOUNTER 2023-06-25 11:06 | Outpatient (REF) | payer MEDICAID, SELFPAY ==
--- NOTE | ~2023-06-25 | US_ITS ---
EXAMINATION: US PELVIS CLINICAL INFORMATION: Pelvic and perineal pain. COMPARISON: Ultrasound pelvis 02/16/2023. TECHNIQUE: Ultrasound of the pelvis is performed using both transabdominal and transvaginal transducers along with Doppler. Transvaginal imaging is performed due to inadequate visualization transabdominally. FINDINGS: Uterus: The uterus is anteverted and measures 9.6 x 4.5 x 5.4 cm. The double wall endometrial thickness is 8 mm. Fluid is seen in the endometrial canal in this patient who is currently menstruating. The uterus is smooth in contour and has normal myometrial echogenicity. No visible fibroid. Nabothian cysts are present. Adnexa: Both ovaries are visualized. There is normal color flow to the adnexa. There is no ovarian torsion. There is no pelvic ascites or fluid collection. Right ovary measures 3.2 x 2.3 x 2.1 cm for a volume of 8.1 mL. Again seen is a hyperechoic area measuring 1.5 x 1.1 x 0.9 cm (previously 1.0 x 1.2 x 0.5 cm). This echogenic area has been seen on studies dating back to at least 06/27/2020 when this measured 0.9 x 0.6 x 1.0 cm. Left ovary measures 3.0 x 1.5 x 2.3 cm for a volume of 5.3 mL. No free fluid present in the cul-de-sac US/US pelvic and transvaginal IMPRESSION: Hyperechoic area in the right ovary is slightly larger than on the prior study. This could represent a dermoid. MRI could be performed for further evaluation.
== END 2023-06-25 11:07 | disposition home or self-care (01) ==
LOC: HO.US 11:06
PROVIDERS: PCP Registered Nurse; Visit Provider Advanced Practice Midwife
DX: R10.2 Pelvic and perineal pain (principal)
CPT/HCPCS: 76830; 76856

== ENCOUNTER 2023-06-28 13:58 | Outpatient (AMB) | payer MEDICAID, SELFPAY ==
--- NOTE | 2023-06-28 14:01 | A.OFFVIS_ITS ---
Vital Signs 06/28/23 14:17 Height 5 ft 4 in Weight 226 lb 6 oz BMI 38.9 BP 132/84 Blood Pressure Location Rt brachial Position Sitting Pulse 78 Pulse Source Pulse Oximeter Pulse Oximetry (%) 98 Oxygen Delivery Method Room Air Intake Visit Reasons: ENP-GEORGE-LVM Intake Note: Patient presents for GEORGE. Having difficulty falling asleep. Wake up feeling shortness of breath and like choking. Wake up sweaty. 3 to 4 times a week get migraines and especially when I don't sleep well. Allergies No Known Allergies Allergy (Verified 06/28/23 14:11) Medication List - Last Reconciled 06/28/23 by ADDY Leung acyclovir 5% (Zovirax) 1 appl topical 6XD PRN 7 days albuterol sulfate 90 mcg/actuation (ProAir HFA) 2 puffs inhalation Q6H PRN 30 days amitriptyline 50 mg PO BEDTIME [Anti-pronation orthotics Anti-pronation orthotics] wocezyk-gjupnrjutneke-atdjegji 250-250-65 mg (Excedrin Extra Strength) 1 tab PO Q4-6H PRN bupropion HCl XL 300 mg PO QAM cholecalciferol (vitamin D3) 25 mcg PO QAM clonazepam 0.25 mg PO BID clotrimazole-betamethasone 1-0.05 % 1 appl topical BID 7 days cyanocobalamin (vitamin B-12) 1,000 mcg PO DAILY cyclobenzaprine 5 mg PO BID PRN diclofenac sodium 1% (Voltaren Arthritis Pain) 4 grams topical QID docusate sodium (Colace) 100 mg PO DAILY epinephrine IM fluconazole 150 mg PO DAILY 1 dose fluticasone propion-salmeterol 250-50 mcg/dose (Wixela Inhub) 1 inh inhalation BID 30 days fluticasone propionate 50 mcg/actuation 2 sprays intranasal DAILY gabapentin 300 mg PO BEDTIME 30 days menthol-zinc oxide 0.44-20.6 % (Calmoseptine) 1 appl topical QID PRN metronidazole 500 mg PO BID 7 days montelukast 10 mg PO DAILY PNV,calcium 25-mjzv-kvqdp acid 27 mg iron- 1 mg ( Vitamins Plus Low Iron) 1 tab PO DAILY promethazine 25 mg PO Q6H PRN propranolol ER 60 mg PO DAILY sennosides (senna) 8.6 mg PO BEDTIME Tirosint (levothyroxine) 137 mcg PO DAILY 30 days NS topiramate 50 mg PO BID trazodone 100 mg PO BEDTIME PRN valacyclovir (Valtrex) 500 mg PO DAILY 30 days HPI Comments Details: 37-yr-old female presents for new in-person patient visit for sleep consultation. Pt reports she she has had difficulty sleeping for a few years. She has to sleep with her head elevated so that she does not wake up gasping. She is prone to SOB- if she lays flat or w/ exertion. She had a sleep study a few years ago- not sure of the results. She was never given a CPAP. Sleep questionnaire: Have you ever been diagnosed with a sleep disorder? Not sure Have you ever had a sleep study in the past? Yes- unsure of the results Have you ever been treated for a sleep disorder? NO Do you take medications for a sleep disorder? Pt states No. However she is prescribed a number of medications which are NURSING UNIT COORDINATOR depressants- amitriptyline, clonazepam. Do you snore? Yes Do you wake up gasping at night? At times Do you have episodes of apneas? Unsure If yes, are they witnessed? n/a Do you have episodes of nocturnal chest pain or dyspnea? SOB Do you have difficulty initiating sleep? Not as long as she waits until she is tired. Do you have difficulty maintaining sleep? Yes Do you wake up tired? Yes Do you have headaches upon awakening? Yes Do you wake up with dry mouth or throat? Lately, yes- Trying to drink more water. Do you have GERD? No Do you have daytime tiredness or fatigue? Yes Do you have nocturnal leg cramps? Not recently Do you have symptoms of restless legs? No Do you act out your dreams? May talk in her sleep Sleep hygiene questionnaire: What is your usual sleep routine? Usual bedtime is at 12am; Usual wakeup time is at 11am. If she goes to bed earlier, she wakes up after a few hrs and cannot go back to sleep- then she is tired, irritable and jsut wants to sleep. If she wakes up early for an appointment, she will want to go back to sleep after returning home. Do you take naps? Yes Is your sleep environment cool, dark, and quiet? Yes Do you exercise? Not much- walks to her mom's house w/ breaks. Do you take caffeine or other stimulants? No Do you use electronics in bed? Sometimes her phone. What is your work schedule? Not working. Hypersomnolence questionnaire: Do you easily fall asleep when inactive? Yes Have you ever had episodes of sudden weakness? No Have you ever had episodes of sudden weakness associated with strong emotions? No PFSH Medical History Internal and external bleeding hemorrhoids Pruritus ani Migraine Anxiety B12 deficiency Vitamin D deficiency Obesity Postablative hypothyroidism Surgical History Hx of dilation and curettage Family History Father Cancer Mother Hypertension Diabetes High cholesterol CVD (cardiovascular disease) Social History Household Members Other:: daughter Housing: House Alcohol intake: never Patient Tobacco Use Status: Never used Tobacco Current occupational status: unemployed Sexual orientation: Straight/Heterosexual Gender identity: Female Review of Systems Const All systems reviewed & are unremarkable except as noted in HPI and below Physical Exam Vital Signs: Last Vital Signs Pulse 78 06/28/23 14:17 BP 132/84 06/28/23 14:17 Pulse Ox 98 06/28/23 14:17 Oxygen Delivery Method Room Air 06/28/23 14:17 BMI result Body Mass Index 38.9 Const General: no acute distress Orientation/consciousness: patient oriented x3 HEENT Other: Mallampati grade 3 Resp Effort & Inspection: able to speak in complete sentences Cardio Rate: regular rate Rhythm: regular rhythm Neuro General: patient oriented x3 Psych Mental Status: mental status grossly normal Speech and movement: Clear speech present Attitude: cooperative Assessment & Plan Assessment & Plan (1) Snoring: Code(s): R06.83 - Snoring Category: Medical (2) Excessive daytime sleepiness: Code(s): G47.19 - Other hypersomnia Category: Medical (3) Sleep difficulties: Code(s): G47.9 - Sleep disorder, unspecified Category: Medical (4) Dyspnea on exertion: Code(s): R06.09 - Other forms of dyspnea Category: Medical Plan Pt advised to undergo HST to assess for sleep apnea. Pt has extended sleep duration which is unrefreshing. Upon review of HST results, will discuss strategies to adjust/optimize her sleep schedule. Pt is on a number of medications w/ sedating effects- pt may benefit from optimizing her migraine and psychiatric tx regimens. Pt should use her prn albuterol if she has nocturnal SOB. Follow-up upon review of above and in-clinic in 6 months or sooner. Orders: Orders RT home sleep study Today G47.19 - Other hypersomnia, G47.9 - Sleep disorder, unspecified, R06.83 - Snoring Medications: Discontinued gabapentin Discontinued Reason: Patient no longer taking 300 mg PO BEDTIME 30 days 30 caps 0RF pain M25.511 - Pain in right shoulder, M25.512 - Pain in left shoulder, M47.812 - Spondylosis without myelopathy or radiculopathy, cervical region Coding Level of Care Code New Pt Level 4 (37441) Diagnoses Snoring R06.83 Excessive daytime sleepiness G47.19 Sleep difficulties G47.9 Dyspnea on exertion R06.09 Blount Sleepiness Scale Questions Sitting and reading: high chance of dozing Watching TV: high chance of dozing Sitting inactive in a theater, movie etc.: high chance of dozing As a passenger in a car for an hour without break: high chance of dozing Lying down in the afternoon when circumstances permit: high chance of dozing Sitting and talking to someone: would never doze Sitting quietly after lunch without alcohol: high chance of dozing In a car, while stopped for a few minutes in the traffic: would never doze ESS < 10: normal, ESS > 12: pathologic: 18
[2023-06-28 14:17] VITALS: BP 132/84; PULSE 78; O2SAT 98; BMI 38.9
== END 2023-06-28 15:19 | disposition home or self-care (01) ==
PROVIDERS: PCP Student in an Organized Health Care Education/Training Program; Visit Provider Nurse Practitioner Family
DX: R06.83 Snoring (principal); G47.19 Other hypersomnia; G47.9 Sleep disorder, unspecified; R06.09 Other forms of dyspnea
CPT/HCPCS: 99204

== ENCOUNTER → 2023-06-28 13:58 | Outpatient (BNVA) | payer MEDICAID, SELFPAY | PROVIDERS: PCP Student in an Organized Health Care Education/Training Program; Visit Provider Nurse Practitioner Family | DX: G47.19 Other hypersomnia (principal); G47.9 Sleep disorder, unspecified; R06.83 Snoring; R06.09 Other forms of dyspnea | CPT/HCPCS: 99212 ==

== ENCOUNTER 2023-07-11 01:07 | Emergency (ER) | payer MEDICAID, SELFPAY ==
--- NOTE | 2023-07-11 | ECG_ITS ---
Test Reason : CHEST PAIN Blood Pressure : / mmHG Vent. Rate : 082 BPM Atrial Rate : 082 BPM P-R Int : 166 ms QRS Dur : 084 ms QT Int : 396 ms P-R-T Axes : -04 040 032 degrees QTc Int : 462 ms Normal sinus rhythm Normal ECG No significant changes when compared with the previous EKG of 07 nov 2012 Referred By: Generic ED Physician Electronically Signed By:BRIANNA ANDREWS
--- NOTE | ~2023-07-11 | XR_ITS ---
EXAMINATION: XR CHEST CLINICAL INFORMATION: Chest pain, cough COMPARISON: 10/05/2019 TECHNIQUE: 2 views of the chest were obtained. FINDINGS: The lungs are clear with no focal consolidation. No evidence of pneumothorax, pulmonary edema, or pleural effusions. The cardiomediastinal silhouette is unremarkable. No acute osseous findings. XR/XR chest 2V IMPRESSION: No acute cardiopulmonary findings.
[2023-07-11 01:18] VITALS: BP 145/96; PULSE 76; RESP 18; TEMP 36.3; O2SAT 100; BMI 40.7
[2023-07-11 01:41] LABS: Basophils Percent Auto 0.2 % (0-2); Eosinophils Absolute Auto 0.1 X10*3/uL (0.0-0.4); Eosinophils Percent Auto 0.9 % (0-4); Hematocrit 36.6 % (37.0-47.0); Hemoglobin 12.3 g/dl (12.0-16.0); Imm Gran Abs Auto 0.02 X10*3/uL (0.00-0.03); Imm Gran Pct Auto 0.2 % (0.0-0.4); Lymphocytes Absolute Auto 1.3 X10*3/uL (1.2-4.9); Lymphocytes Percent Auto 16.7 % (20-40); MANUAL DIFF FLAG SCAN; Mean Corpuscular HGB Conc 33.6 g/dl (31.0-35.0); Mean Corpuscular Hemoglobin 29.3 pg (27.0-33.0); Mean Corpuscular Volume 87.1 fL (80.0-98.0); Mean Platelet Volume 11.5 fL (9.4-12.3); Monocytes Absolute Auto 0.4 X10*3/uL (0.1-1.2); Neutrophils Absolute Auto 6.2 x10*3/uL (2.0-8.3); PLT CLUMP 1; Platelet Count 172 X10*3/uL (160-400); Red Cell Distribution Width 12.7 % (11.0-16.0); SCAN SMEAR FLAG 1
[2023-07-11 01:52] LABS: Alanine Aminotransferase 9 U/L (0-31); Albumin Level 4.5 g/dL (3.5-5.0); Alkaline Phosphatase 73 U/L (39-117); Anion Gap 14 (12-20); Aspartate Amino Transferase 20 U/L (5-31); Bilirubin Total 0.4 mg/dL (0.0-1.0); Blood Urea Nitrogen 21 mg/dL (9-16); Carbon Dioxide 25 mmol/L (22-29); Chloride 108 mmol/L (96-108); Creatinine Clr Calc Pharmacy 94.8; Estimated Glomerular Filt Rate > 60; Glucose Random 119 mg/dL (60-115); Lipase 15 U/L (8-78); Potassium 3.8 mmol/L (3.3-5.1); Sodium 143 mmol/L (135-145); Total Protein 7.8 g/dL (6.5-8.0)
[2023-07-11 02:00] LABS: HCG Quantitative < 2 mIU/mL; Troponin-I High Sensitivity < 2.7 ng/L (<3.5-17.0)
[2023-07-11 02:05] LABS: COVID-19 Test Negative (Negative); IDNOW Serial# 152EDE1D
[2023-07-11 02:06] LABS: IDNOW Serial# 08D9AD1C; Influenza A Negative (Negative); Influenza B2 Negative (Negative)
[2023-07-11 02:15] LABS: SLIDE REVIEW VERIFIED
== END 2023-07-11 05:04 | disposition left against medical advice (07) ==
PROVIDERS: Emergency Provider Emergency Medicine
DX: R07.9 Chest pain, unspecified (principal); R05.9 Cough, unspecified
CPT/HCPCS: 36415; 71046; 80053; 83690; 84484; 84702; 85025; 87502; 87635; 93005; 99281; 99283

== ENCOUNTER → 2023-07-11 01:10 | Outpatient (BNV) | payer MEDICAID, SELFPAY | PROVIDERS: Emergency Provider Emergency Medicine; Visit Provider Internal Medicine | DX: R07.9 Chest pain, unspecified (principal) | CPT/HCPCS: 93010 ==

== ENCOUNTER 2023-07-20 15:20 | Outpatient (AMB) | payer MEDICAID, SELFPAY ==
[2023-07-20 16:19] VITALS: BP 132/84; BMI 39.5
--- NOTE | 2023-07-20 16:19 | A.OFFVIS_ITS ---
Vital Signs 07/20/23 16:19 Height 5 ft 4 in Weight 230 lb BMI 39.5 BP 132/84 Intake Visit Reasons: US follow up Branch Operations Manager Required: No Air Operations Manager: Air Operations Manager Present Allergies No Known Allergies Allergy (Verified 07/20/23 16:19) Is last menstrual period known: Yes Post menopausal: No HPI Comments Details: Patient is here for an ultrasound follow up due to history of pelvic pain. Her pelvic pain has been on her left, ultrasound reveals a hypoechoic area on her right ovary, suggest an MRI would be beneficial. PFSH Medical History Internal and external bleeding hemorrhoids Pruritus ani Migraine Anxiety B12 deficiency Vitamin D deficiency Obesity Postablative hypothyroidism Surgical History Hx of dilation and curettage Family History Father Cancer Mother Hypertension Diabetes High cholesterol CVD (cardiovascular disease) Social History Household Members Other:: daughter Housing: House Alcohol intake: never Patient Tobacco Use Status: Never used Tobacco Current occupational status: unemployed Sexual orientation: Straight/Heterosexual Gender identity: Female Female Reproductive History Menstrual control method: none Review of Systems Const All systems reviewed & are unremarkable except as noted in HPI and below Endo Reports no additional complaints Physical Exam Vital Signs: Last Vital Signs BP 132/84 07/20/23 16:19 BMI result Body Mass Index 39.5 Const General: cooperative, healthy appearing and no acute distress Psych Appearance: well kempt Attitude: cooperative Thought process: Normal thought process present Results Reviewed Results Reviewed: [address] [address] Ultrasound Report Signed Patient: Catalina Wood MR#: [id number] : 1985 Acct:[id number] Age/Sex: 37 / F ADM Date: 06/25/23 Loc: HO.US Attending Dr: Sparkle Maldonado CNM Ordering Physician: Sparkle Maldonado CNM Date of Service: 06/25/23 Procedure(s): US pelvic and transvaginal Accession Number(s): [id number] cc: Sparkle Maldonado; Vida Van Lauren PSYCHOLOGY PHYSICIAN~ EXAMINATION: US PELVIS CLINICAL INFORMATION: Pelvic and perineal pain. COMPARISON: Ultrasound pelvis 02/16/2023. TECHNIQUE: Ultrasound of the pelvis is performed using both transabdominal and transvaginal transducers along with Doppler. Transvaginal imaging is performed due to inadequate visualization transabdominally. FINDINGS: Uterus: The uterus is anteverted and measures 9.6 x 4.5 x 5.4 cm. The double wall endometrial thickness is 8 mm. Fluid is seen in the endometrial canal in this patient who is currently menstruating. The uterus is smooth in contour and has normal myometrial echogenicity. No visible fibroid. Nabothian cysts are present. Adnexa: Both ovaries are visualized. There is normal color flow to the adnexa. There is no ovarian torsion. There is no pelvic ascites or fluid collection. Right ovary measures 3.2 x 2.3 x 2.1 cm for a volume of 8.1 mL. Again seen is a hyperechoic area measuring 1.5 x 1.1 x 0.9 cm (previously 1.0 x 1.2 x 0.5 cm). This echogenic area has been seen on studies dating back to at least 06/27/2020 when this measured 0.9 x 0.6 x 1.0 cm. Left ovary measures 3.0 x 1.5 x 2.3 cm for a volume of 5.3 mL. No free fluid present in the cul-de-sac US/US pelvic and transvaginal IMPRESSION: Hyperechoic area in the right ovary is slightly larger than on the prior study. This could represent a dermoid. MRI could be performed for further evaluation. Dictated By: Ifeanyi Figueroa MD Signed By: <Electronically signed by Ifeanyi Figueroa MD in OV> 07/04/23 8625 DD/ 1141 TD/TT: Scientist/Engineer: Assessment & Plan Assessment & Plan (1) Abnormal ultrasound of ovary: Code(s): R93.5 - Abnormal findings on diagnostic imaging of other abdominal regions, including retroperitoneum Category: Medical Plan Discussed: Ultrasound findings with hypoechoic area of right ovary, plan for MRI for further evaluation. Advised to report any pain to the right side. MRI needs to be prior prove before can be scheduled once completed she will be scheduled in the office for test results. Referral will be made if indicated for any surgical consults or empty care. Reviewed dermoids verses benign verses premalignant or malignant tumors. All of her questions and concerns were addressed to the best of my ability and shared decision making. She is agreeable to the plan of care. This note is constructed using voice recognition software. While every effort has been made to ensure accuracy, facilities custodian errors may have been included. Orders: Orders MR pelvis wo/w con Today R93.5 - Abnormal findings on diagnostic imaging of other abdominal regions, including retroperitoneum Coding Level of Care Code Est Pt Level 3 (96627) Diagnoses Abnormal ultrasound of ovary R93.5
== END 2023-07-21 08:32 | disposition home or self-care (01) ==
PROVIDERS: PCP Registered Nurse; Visit Provider Advanced Practice Midwife
DX: R93.5 Abnormal findings on diagnostic imaging of other abdominal regions, including retroperitoneum (principal)
CPT/HCPCS: 99213

== ENCOUNTER → 2023-07-20 15:20 | Outpatient (BNVA) | payer MEDICAID, SELFPAY | PROVIDERS: PCP Registered Nurse; Visit Provider Advanced Practice Midwife | DX: R93.5 Abnormal findings on diagnostic imaging of other abdominal regions, including retroperitoneum (principal) | CPT/HCPCS: 99212 ==

== ENCOUNTER 2023-07-22 13:32 | Outpatient (AMB) | payer MEDICAID, SELFPAY ==
--- NOTE | 2023-07-22 13:40 | A.OFFVIS_ITS ---
Vital Signs 07/22/23 13:41 Height 5 ft 4 in Weight 230 lb BMI 39.5 Intake Visit Reasons: follow up Produce Weigher Required: Yes Produce Weigher Language: Sausage Stuffer Name: Bev Fernandez Dress Marker: Dress Marker Present Allergies No Known Allergies Allergy (Verified 07/22/23 13:42) Is last menstrual period known: Yes HPI Comments Details: Tele [place] visit 1:38-1:57. Phone call due to Covid 19 Pandemic. I spent 15 minutes speaking with the patient on the phone plus an additional 5 minutes reviewing the chart and 5 minutes updating the medical record for a total of 25minutes. Patient presents via phone to discuss: Follow up on her appointment this week she had additional questions regarding the plan of care. Recent ultrasound revealed a area on the right ovary that appears to be possibly a dermoid. She has not had that diagnosed in the past and denies any pain on her right ovary. She has currently not sexually active. She was seen last year for fertility workup and was wondering what the plan of care was for that. Notes reviewed today regarding that consult visit indicates she left without a follow up appointment. [facility] Medical History Internal and external bleeding hemorrhoids Pruritus ani Migraine Anxiety B12 deficiency Vitamin D deficiency Obesity Postablative hypothyroidism Surgical History Hx of dilation and curettage Family History Father Cancer Mother Hypertension Diabetes High cholesterol CVD (cardiovascular disease) Social History Household Members Other:: daughter Housing: House Alcohol intake: never Patient Tobacco Use Status: Never used Tobacco Current occupational status: unemployed Sexual orientation: Straight/Heterosexual Gender identity: Female Review of Systems Const All systems reviewed & are unremarkable except as noted in HPI and below Endo Reports no additional complaints Physical Exam Vital Signs: BMI result Body Mass Index 39.5 Const General: cooperative, healthy appearing and no acute distress Psych Appearance: well kempt Attitude: cooperative Thought process: Normal thought process present Telehealth Telehealth Telehealth Platform: [facility] Location of provider rendering services: practice address Location of patient: address on file Patient Identification confirmed using: Name, : Yes Telehealth method: video Patient verbally consented to treatment: Yes Patient verbally consented to billing insurance company: Yes Patient informed of any privacy concerns related to visit: Yes Results Reviewed Results Reviewed: [address] [address] Ultrasound Report Signed Patient: Catalina Wood MR#: [id number] : 1985 Acct:[id number] Age/Sex: 37 / F ADM Date: 06/25/23 Loc: HO.US Attending Dr: Sparkle Maldonado CNM Ordering Physician: Sparkle Maldonado CNM Date of Service: 06/25/23 Procedure(s): US pelvic and transvaginal Accession Number(s): [id number] cc: Sparkle Maldonado CNM; Vida VanP~ EXAMINATION: US PELVIS CLINICAL INFORMATION: Pelvic and perineal pain. COMPARISON: Ultrasound pelvis 02/16/2023. TECHNIQUE: Ultrasound of the pelvis is performed using both transabdominal and transvaginal transducers along with Doppler. Transvaginal imaging is performed due to inadequate visualization transabdominally. FINDINGS: Uterus: The uterus is anteverted and measures 9.6 x 4.5 x 5.4 cm. The double wall endometrial thickness is 8 mm. Fluid is seen in the endometrial canal in this patient who is currently menstruating. The uterus is smooth in contour and has normal myometrial echogenicity. No visible fibroid. Nabothian cysts are present. Adnexa: Both ovaries are visualized. There is normal color flow to the adnexa. There is no ovarian torsion. There is no pelvic ascites or fluid collection. Right ovary measures 3.2 x 2.3 x 2.1 cm for a volume of 8.1 mL. Again seen is a hyperechoic area measuring 1.5 x 1.1 x 0.9 cm (previously 1.0 x 1.2 x 0.5 cm). This echogenic area has been seen on studies dating back to at least 06/27/2020 when this measured 0.9 x 0.6 x 1.0 cm. Left ovary measures 3.0 x 1.5 x 2.3 cm for a volume of 5.3 mL. No free fluid present in the cul-de-sac US/US pelvic and transvaginal IMPRESSION: Hyperechoic area in the right ovary is slightly larger than on the prior study. This could represent a dermoid. MRI could be performed for further evaluation. Dictated By: Ifeanyi Figueroa MD Signed By: <Electronically signed by Ifeanyi Figueroa MD in OV> 07/04/23 1805 DD/ 1141 TD/TT: Supervisor Polishing: ERINN Assessment & Plan Assessment & Plan (1) Abnormal ultrasound of ovary: Code(s): R93.5 - Abnormal findings on diagnostic imaging of other abdominal regions, including retroperitoneum Category: Medical Plan: Reviewed ultrasound results, concern is for possible dermoid, the purpose of the MRI is to obtain more information to plan her care. Discuss the nature of dermoids, if any suspicious lesion or persistent mass would require a surgical consult, await results for plan of care discussion. Follow up with [facility] when ready to pursue infertility or if you have any further questions regarding the testing that was done in 2022 and the plan of care. All of her questions and concerns were addressed to the best of my ability and shared decision making. She is agreeable to the plan of care. This note is constructed using voice recognition software. While every effort has been made to ensure accuracy, business owner/engineer errors may have been included. Coding Level of Care Code Tele Est Pt Level 3 (63618) Diagnoses Abnormal ultrasound of ovary R93.5
[2023-07-22 13:41] VITALS: BMI 39.5
== END 2023-07-22 15:59 | disposition home or self-care (01) ==
LOC: HO.HWS 13:32
PROVIDERS: PCP Registered Nurse; Visit Provider Advanced Practice Midwife
DX: R93.5 Abnormal findings on diagnostic imaging of other abdominal regions, including retroperitoneum (principal)
CPT/HCPCS: 99213

== ENCOUNTER → 2023-07-22 13:32 | Outpatient (BNVA) | payer MEDICAID, SELFPAY | PROVIDERS: PCP Registered Nurse; Visit Provider Advanced Practice Midwife ==

== ENCOUNTER → 2023-08-04 12:59 | Outpatient (REF) | payer MEDICAID, SELFPAY | LOC: HO.SL 12:59 | PROVIDERS: PCP Registered Nurse; Visit Provider Nurse Practitioner Family | DX: Z13.89 Encounter for screening for other disorder (principal) ==

== ENCOUNTER 2023-08-29 13:01 | Emergency (ER) | payer MEDICAID, SELFPAY ==
[2023-08-29 13:11] VITALS: BP 173/104; PULSE 70; RESP 18; TEMP 36.5; O2SAT 99; BMI 40.2
--- NOTE | 2023-08-29 13:12 | ED_ITS ---
HPI - Headache General Chief Complaint: Headache Stated Complaint: migraine,hbp Time Seen by Provider: 08/29/23 13:35 Related Data Home Medications ?Medication ?Instructions ?Recorded ?Confirmed wjswrdk-emqahrobtqlaz-nyxbqefz 250 1 tab PO Q4-6H PRN 12/18/19 06/28/23 mg-250 mg-65 mg tablet (Excedrin Extra Strength) propranolol 60 mg capsule,24 60 mg PO DAILY 12/18/19 06/28/23 hr,extended release sennosides 8.6 mg capsule (senna) 8.6 mg PO BEDTIME 12/18/19 06/28/23 clonazepam 0.5 mg tablet 0.25 mg PO BID 11/06/20 06/28/23 epinephrine 0.3 mg/0.3 mL IM anaphylaxis 05/21/22 06/28/23 injection, auto-injector amitriptyline 25 mg tablet 50 mg PO BEDTIME 11/19/22 06/28/23 bupropion HCl 300 mg 24 hr tablet, 300 mg PO QAM 11/19/22 06/28/23 extended release cholecalciferol (vitamin D3) 25 25 mcg PO QAM 11/19/22 06/28/23 mcg (1,000 unit) tablet cyanocobalamin (vitamin B-12) 1,000 mcg PO DAILY 11/19/22 1,000 mcg tablet montelukast 10 mg tablet 10 mg PO DAILY 11/19/22 06/28/23 topiramate 50 mg tablet 50 mg PO BID 11/19/22 06/28/23 trazodone 100 mg tablet 100 mg PO BEDTIME PRN 11/19/22 06/28/23 fluticasone propionate 50 2 spray intranasal DAILY 01/05/23 06/28/23 mcg/actuation nasal spray,suspension Previous Rx's ?Medication ?Instructions ?Recorded promethazine 25 mg tablet 25 mg PO Q6H PRN Nausea, vomiting, 01/09/20 headache #10 tabs Anti-pronation orthotics #1 ea 03/29/20 docusate sodium 100 mg capsule 100 mg PO DAILY #30 caps 05/13/20 (Colace) menthol 0.44 %-zinc oxide 20.6 % 1 appl topical QID PRN skin 05/13/20 topical ointment (Calmoseptine) irritation #71 grams Tirosint 137 mcg capsule 137 mcg PO DAILY 30 days #30 caps 10/15/22 (levothyroxine) acyclovir 5 % topical ointment 1 appl topical 6XD PRN prn 7 days 11/23/22 (Zovirax) #30 grams cyclobenzaprine 5 mg tablet 5 mg PO BID PRN muscle spasm #60 01/05/23 tabs diclofenac sodium 1 % topical gel 4 g topical QID pain #100 grams 01/05/23 (Voltaren Arthritis Pain) vitamin with calcium 1 tab PO DAILY #90 tabs 01/12/23 no.72-iron 27 mg-folic acid 1 mg tablet ( Vitamins Plus Low Iron) valacyclovir 500 mg tablet 500 mg PO DAILY 30 days #30 tabs 02/11/23 (Valtrex) albuterol sulfate 90 mcg/actuation 2 puff inhalation Q6H PRN 04/01/23 aerosol inhaler (ProAir HFA) shortness of breath or wheezing 30 days #1 ea fluticasone 250 mcg-salmeterol 50 1 inh inhalation BID 30 days #1 ea 04/01/23 mcg/dose blistr powdr for inhalation (Wixela Inhub) clotrimazole-betamethasone 1 1 appl topical BID itching 7 days 06/15/23 %-0.05 % topical cream #45 grams fluconazole 150 mg tablet 150 mg PO DAILY 1 dose #1 tab 06/16/23 yrahdvwhcx-tpctynbuftqry-kdsndmtk 1 cap PO Q6H PRN headache #14 caps 08/29/23 50 mg-300 mg-40 mg capsule (Fioricet) Allergies Allergy/AdvReac Type Severity Reaction Status Date / Time No Known Allergies Allergy Verified 08/29/23 13:14 [facility] Past Medical History Medical History Internal and external bleeding hemorrhoids Pruritus ani Migraine Anxiety B12 deficiency Vitamin D deficiency Obesity Postablative hypothyroidism Surgical History Hx of dilation and curettage Family History Family History Father Cancer Mother Hypertension Diabetes High cholesterol CVD (cardiovascular disease) Social History Social History Household Members Other:: daughter Housing: House Alcohol intake: never Patient Tobacco Use Status: Never used Tobacco Smoked in Last 30 Days: No Use of substances other than those prescribed or required for medical reasons: No Advance Directives: No Advance Directives Information Provided: No Do you have a plan to hurt others: No Plan Patient : No Current occupational status: unemployed Sexual orientation: Straight/Heterosexual Gender identity: Female Physical Exam 2 Vital Signs: Vital Signs: Last Vital Signs Temp 98.3 F 08/29/23 17:41 Pulse 67 08/29/23 17:41 Resp 14 08/29/23 17:41 BP 122/69 08/29/23 17:41 Pulse Ox 100 08/29/23 17:41 O2 Del Method Room Air 08/29/23 17:41 BMI result Body Mass Index 40.2 Course Course Course Narrative: This is a rapid medical exam. Deferred additional HPI, ROS,PE to primary provider. 37 yo female here with headache, photophobia x 4 days. Has a history of migraines, taking excedrin with no relief. Has a rx for sumatriptan with her prescribed by her PCP but she did not try it because she was concerned over the side effects. Also feeling anxious, feels blood pressure is elevated. Will obtain labs, ur preg, viral testing VSS Sam LACEY Reevaluation(s) Reevaluation #1: BP better still some SANTAMARIA will add toradol Reevaluation #2: The patient signed out to me by Dr. Martinez. The patient is feeling that her headache is back down to a ?regular? level. Clinically she looks well. She seems to describe a lot of chronic problems with headaches. She feels well enough to be discharged this point. I believe she has been seen in our neurology office for headaches in the past and she will be referred back to them. --Darren Blank Time: 17:17 Medications Administered Discontinued Medications Generic Name Dose Route Start Last Admin Trade Name Freq PRN Reason Stop Dose Admin Diphenhydramine HCl 25 mg 08/29/23 13:54 08/29/23 14:05 Diphenhydramine Hcl 50 Mg/Ml Vial IVPUSH 08/29/23 13:55 25 mg ONCE ONE Administration Sodium Chloride 1,000 mls @ 999 mls/hr 08/29/23 14:00 08/29/23 16:52 Ns IVCONT 08/29/23 15:00 Infused .Q1H1M SERINA Infusion Ketorolac Tromethamine 15 mg 08/29/23 15:47 08/29/23 15:57 Ketorolac Tromethamine 15 Mg/Ml Vial IVPUSH 08/29/23 15:48 15 mg ONCE ONE Administration Metoclopramide HCl 10 mg 08/29/23 13:54 08/29/23 14:05 Metoclopramide Hcl 10 Mg/2 Ml Vial IVPUSH 08/29/23 13:55 10 mg ONCE ONE Administration Medical Decision Making Lab Data 08/29/23 13:28 08/29/23 13:28 Labs: Lab Results 08/29/23 08/29/23 Range/Units 13:28 15:57 WBC 4.9 (4.8-10.8) X10*3/uL RBC 4.09 L (4.20-5.50) X10*6/uL Hgb 11.9 L (12.0-16.0) g/dl Hct 35.8 L (37.0-47.0) % MCV 87.5 (80.0-98.0) fL MCH 29.1 (27.0-33.0) pg MCHC 33.2 (31.0-35.0) g/dl RDW 13.2 (11.0-16.0) % Plt Count 233 D (160-400) X10*3/uL MPV 10.7 (9.4-12.3) fL Immature Gran % (Auto) 0.2 (0.0-0.4) % Neut % (Auto) 68.5 (45-73) % Lymph % (Auto) 24.4 (20-40) % [place] % (Auto) 4.9 (2-11) % Eos % (Auto) 1.8 (0-4) % Baso % (Auto) 0.2 (0-2) % Lymph # (Auto) 1.2 (1.2-4.9) X10*3/uL [place] # (Auto) 0.2 (0.1-1.2) X10*3/uL Eos # (Auto) 0.1 (0.0-0.4) X10*3/uL Baso # (Auto) 0.0 (0.0-0.2) X10*3/uL Abs Immat Gran (auto) 0.01 (0.00-0.03) X10*3/uL Absolute Neuts (auto) 3.3 (2.0-8.3) x10*3/uL Absolute Nucleated RBC 0.000 (0.0-0.012) X10*3/uL Nucleated RBC % (auto) 0.0 (0.0-0.2) /100WBC Sodium 143 (135-145) mmol/L Potassium 4.0 (3.3-5.1) mmol/L Chloride 106 (96-108) mmol/L Carbon Dioxide 28 (22-29) mmol/L Anion Gap 13 (12-20) BUN 15 (9-16) mg/dL Creatinine 0.85 (0.5-1.4) mg/dL Estim Creat Clear Calc 101.8 Estimated GFR > 60 Random Glucose 110 (60-115) mg/dL Calcium 9.8 (8.4-10.2) mg/dL Urine Test NEGATIVE (NEGATIVE) Influenza Type A (PCR) NEGATIVE (Negative) Influenza Type B (PCR) NEGATIVE (Negative) RSV RNA Qual (PCR) NEGATIVE (Negative) SARS-CoV-2 RNA (RT-PCR) NEGATIVE (Negative) Discharge Plan Discharge Clinical Impression: Migraine Patient Disposition: Home, Self-Care Additional Instructions: Please rest and take it easy today. Drink lot of fluids. Resume your normal medications. Please follow up with your regular providers Prescriptions: New klwtfrjlne-wfagwusnjajdv-vfns [Fioricet] 50-300-40 mg capsule 1 cap PO Q6H PRN (Reason: headache) Qty: 14 0RF No Action Tirosint 137 mcg capsule 137 mcg PO DAILY 30 Days Qty: 30 10RF Rx Instructions: dispense As written, brand medically necessary. Do not substitute. acyclovir [Zovirax] 5 % ointment 1 appl topical 6XD PRN (Reason: prn) 7 Days Qty: 30 0RF valacyclovir [Valtrex] 500 mg tablet 500 mg PO DAILY 30 Days Qty: 30 1RF fluconazole 150 mg tablet 150 mg PO DAILY Qty: 1 0RF Rx Instructions: administer on day 1 of therapy promethazine 25 mg tablet 25 mg PO Q6H PRN (Reason: Nausea, vomiting, headache) Qty: 10 0RF Excedrin Extra Strength 250-250-65 mg tablet 1 tab PO Q4-6H PRN senna 8.6 mg capsule 8.6 mg PO BEDTIME propranolol 60 mg capsule,extended release 24 hr 60 mg PO DAILY Calmoseptine 0.44-20.6 % ointment 1 appl topical QID PRN (Reason: skin irritation) Qty: 71 4RF docusate sodium [Colace] 100 mg capsule 100 mg PO DAILY Qty: 30 4RF clonazepam 0.5 mg tablet 0.25 mg PO BID (DME) Anti-pronation orthotics See Rx Instructions .ROUTE .MEDSUPPLY Qty: 1 0RF Rx Instructions: Anti-pronation orthotics epinephrine 0.3 mg/0.3 mL auto-injector IM fluticasone propionate 50 mcg/actuation spray,suspension 2 spray intranasal DAILY cyclobenzaprine 5 mg tablet 5 mg PO BID PRN (Reason: muscle spasm) Qty: 60 0RF diclofenac sodium [Voltaren Arthritis Pain] 1 % gel 4 g topical QID Qty: 100 0RF clotrimazole-betamethasone 1-0.05 % cream 1 appl topical BID 7 Days Qty: 45 0RF Rx Instructions: apply externally a thin coat to the area cholecalciferol (vitamin D3) 25 mcg (1,000 unit) tablet 25 mcg PO QAM cyanocobalamin (vitamin B-12) 1,000 mcg tablet 1,000 mcg PO DAILY topiramate 50 mg tablet 50 mg PO BID trazodone 100 mg tablet 100 mg PO BEDTIME PRN amitriptyline 25 mg tablet 50 mg PO BEDTIME montelukast 10 mg tablet 10 mg PO DAILY bupropion HCl 300 mg tablet extended release 24 hr 300 mg PO QAM Vitamin Plus Low Iron 27 mg iron- 1 mg tablet 1 tab PO DAILY Qty: 90 4RF albuterol sulfate [ProAir HFA] 90 mcg/actuation HFA aerosol inhaler 2 puff inhalation Q6H PRN (Reason: shortness of breath or wheezing) 30 Days Qty: 1 6RF fluticasone propion-salmeterol [Wixela Inhub] 250-50 mcg/dose blister with device 1 inh inhalation BID 30 Days Qty: 1 6RF Referrals: Roberta Burroughs MD [Primary Care Provider] - (headaches, hypertension) Geetha Smith CNP [Nurse Practitioner] - (Recurrent headaches) Interventions: ED Discharge Assessment Last Done: 08/29/23 17:41 Discharge Date/Time: 08/29/23 18:08 Print Language: Pashto
[2023-08-29 13:33] LABS: MANUAL DIFF FLAG NO
[2023-08-29 13:34] LABS: Basophils Percent Auto 0.2 % (0-2); Eosinophils Absolute Auto 0.1 X10*3/uL (0.0-0.4); Eosinophils Percent Auto 1.8 % (0-4); Hematocrit 35.8 % (37.0-47.0); Hemoglobin 11.9 g/dl (12.0-16.0); Imm Gran Abs Auto 0.01 X10*3/uL (0.00-0.03); Imm Gran Pct Auto 0.2 % (0.0-0.4); Lymphocytes Absolute Auto 1.2 X10*3/uL (1.2-4.9); Lymphocytes Percent Auto 24.4 % (20-40); Mean Corpuscular HGB Conc 33.2 g/dl (31.0-35.0); Mean Corpuscular Hemoglobin 29.1 pg (27.0-33.0); Mean Corpuscular Volume 87.5 fL (80.0-98.0); Mean Platelet Volume 10.7 fL (9.4-12.3); Monocytes Absolute Auto 0.2 X10*3/uL (0.1-1.2); Monocytes Percent Auto 4.9 % (2-11); Neutrophils Absolute Auto 3.3 x10*3/uL (2.0-8.3); Neutrophils Percent Auto 68.5 % (45-73); Platelet Count 233 X10*3/uL (160-400); Red Blood Count 4.09 X10*6/uL (4.20-5.50); Red Cell Distribution Width 13.2 % (11.0-16.0); White Blood Count 4.9 X10*3/uL (4.8-10.8)
[2023-08-29 13:45] LABS: Anion Gap 13 (12-20); Blood Urea Nitrogen 15 mg/dL (9-16); Calcium 9.8 mg/dL (8.4-10.2); Carbon Dioxide 28 mmol/L (22-29); Chloride 106 mmol/L (96-108); Creatinine Clr Calc Pharmacy 101.8; Estimated Glomerular Filt Rate > 60; Glucose Random 110 mg/dL (60-115); Sodium 143 mmol/L (135-145)
--- NOTE | 2023-08-29 13:55 | ED_ITS ---
HPI - Headache General Chief Complaint: Headache Stated Complaint: migraine,hbp Time Seen by Provider: 08/29/23 13:35 Source: patient Mode of arrival: ambulatory Limitations: no limitations History of Present Illness HPI Narrative: This is a 37 years old the female with history of migraines headache presented to the emergency department with a chief complaint of headache x4 days. She states her headache is similar to her other migraine headache she did not take her Imitrex. Denies any fever chills vomiting. MD elicited complaint: headache Onset (ago): day(s) (4) Onset description: gradually Location: diffuse Severity: moderate Quality & Timing: aching Exacerbating factors: none Relieving factors: nothing Context: occurred at rest Related Data Home Medications ?Medication ?Instructions ?Recorded ?Confirmed [id number] 250 1 tab PO Q4-6H PRN 12/18/19 06/28/23 mg-250 mg-65 mg tablet (Excedrin Extra Strength) propranolol 60 mg capsule,24 60 mg PO DAILY 12/18/19 06/28/23 hr,extended release sennosides 8.6 mg capsule (senna) 8.6 mg PO BEDTIME 12/18/19 06/28/23 clonazepam 0.5 mg tablet 0.25 mg PO BID 11/06/20 06/28/23 epinephrine 0.3 mg/0.3 mL IM anaphylaxis 05/21/22 06/28/23 injection, auto-injector amitriptyline 25 mg tablet 50 mg PO BEDTIME 11/19/22 06/28/23 bupropion HCl 300 mg 24 hr tablet, 300 mg PO QAM 11/19/22 06/28/23 extended release cholecalciferol (vitamin D3) 25 25 mcg PO QAM 11/19/22 06/28/23 mcg (1,000 unit) tablet cyanocobalamin (vitamin B-12) 1,000 mcg PO DAILY 11/19/22 1,000 mcg tablet montelukast 10 mg tablet 10 mg PO DAILY 11/19/22 06/28/23 topiramate 50 mg tablet 50 mg PO BID 11/19/22 06/28/23 trazodone 100 mg tablet 100 mg PO BEDTIME PRN 11/19/22 06/28/23 fluticasone propionate 50 2 spray intranasal DAILY 01/05/23 06/28/23 mcg/actuation nasal spray,suspension Previous Rx's ?Medication ?Instructions ?Recorded promethazine 25 mg tablet 25 mg PO Q6H PRN Nausea, vomiting, 01/09/20 headache #10 tabs Anti-pronation orthotics #1 ea 03/29/20 docusate sodium 100 mg capsule 100 mg PO DAILY #30 caps 05/13/20 (Colace) menthol 0.44 %-zinc oxide 20.6 % 1 appl topical QID PRN skin 05/13/20 topical ointment (Calmoseptine) irritation #71 grams Tirosint 137 mcg capsule 137 mcg PO DAILY 30 days #30 caps 10/15/22 (levothyroxine) acyclovir 5 % topical ointment 1 appl topical 6XD PRN prn 7 days 11/23/22 (Zovirax) #30 grams cyclobenzaprine 5 mg tablet 5 mg PO BID PRN muscle spasm #60 01/05/23 tabs diclofenac sodium 1 % topical gel 4 g topical QID pain #100 grams 01/05/23 (Voltaren Arthritis Pain) vitamin with calcium 1 tab PO DAILY #90 tabs 01/12/23 no.72-iron 27 mg-folic acid 1 mg tablet ( Vitamins Plus Low Iron) valacyclovir 500 mg tablet 500 mg PO DAILY 30 days #30 tabs 02/11/23 (Valtrex) albuterol sulfate 90 mcg/actuation 2 puff inhalation Q6H PRN 04/01/23 aerosol inhaler (ProAir HFA) shortness of breath or wheezing 30 days #1 ea fluticasone 250 mcg-salmeterol 50 1 inh inhalation BID 30 days #1 ea 04/01/23 mcg/dose blistr powdr for inhalation (Wixela Inhub) clotrimazole-betamethasone 1 1 appl topical BID itching 7 days 06/15/23 %-0.05 % topical cream #45 grams fluconazole 150 mg tablet 150 mg PO DAILY 1 dose #1 tab 06/16/23 Allergies Allergy/AdvReac Type Severity Reaction Status Date / Time No Known Allergies Allergy Verified 08/29/23 13:14 Review of Systems 2 Constitutional: Constitutional: Reports no additional constitutional complaints Eyes: Eyes: Reports no additional eye complaints Neurologic: Reports other (SANTAMARIA) [facility], [facility] Past Medical History Attestation statement: The following information was validated with the patient. PMFSH Narrative: Migraine headache, anxiety, obesity Medical History Internal and external bleeding hemorrhoids Pruritus ani Migraine Anxiety B12 deficiency Vitamin D deficiency Obesity Postablative hypothyroidism Surgical History Hx of dilation and curettage Family History Family History Father Cancer Mother Hypertension Diabetes High cholesterol CVD (cardiovascular disease) Social History Social History Household Members Other:: daughter Housing: House Alcohol intake: never Patient Tobacco Use Status: Never used Tobacco Smoked in Last 30 Days: No Use of substances other than those prescribed or required for medical reasons: No Advance Directives: No Advance Directives Information Provided: No Do you have a plan to hurt others: No Plan Patient : No Current occupational status: unemployed Sexual orientation: Straight/Heterosexual Gender identity: Female Physical Exam 2 Vital Signs: Vital Signs: Last Vital Signs Temp 98.3 F 08/29/23 15:30 Pulse 67 08/29/23 15:30 Resp 14 08/29/23 15:30 BP 122/69 08/29/23 15:30 Pulse Ox 100 08/29/23 15:30 O2 Del Method Room Air 08/29/23 15:30 BMI result Body Mass Index 40.2 Const: General: cooperative Nutritional Appearance: well nourished O rientation/consciousness: patient oriented x3 HEENT: Head: Yes normal to inspection General nose exam: Normal external nose present Mouth: Normal oral and palatal mucosa present Neck: Neck: Yes normal visual inspection and Yes full ROM Thyroid: Thyroid normal Chest: Chest palpation & inspection: normal inspection of the chest Cardio: Jugular venous distension: no JVD Rate: regular rate Rhythm: r egular rhythm GI: Inspection: Yes normal to inspection Palpation (GI): Soft to palpation, not firm and nontender Auscultation: normal bowel sounds Skin: General skin exam: no rashes or lesions noted and elasticity normal R ashes: no rashes Neuro: General: patient oriented x3 Course Reevaluation(s) Reevaluation #1: signed out to Krogius ,BP much better just got toradol as well Time: 16:16 Medications Administered Discontinued Medications Generic Name Dose Route Start Last Admin Trade Name Jayro PRN Reason Stop Dose Admin Diphenhydramine HCl 25 mg 08/29/23 13:54 08/29/23 14:05 Diphenhydramine Hcl 50 Mg/Ml Vial IVPUSH 08/29/23 13:55 25 mg ONCE ONE Administration Sodium Chloride 1,000 mls @ 999 mls/hr 08/29/23 14:00 08/29/23 14:06 Ns IVCONT 08/29/23 15:00 999 mls/hr .Q1H1M SERINA Administration Ketorolac Tromethamine 15 mg 08/29/23 15:47 08/29/23 15:57 Ketorolac Tromethamine 15 Mg/Ml Vial IVPUSH 08/29/23 15:48 15 mg ONCE ONE Administration Metoclopramide HCl 10 mg 08/29/23 13:54 08/29/23 14:05 Metoclopramide Hcl 10 Mg/2 Ml Vial IVPUSH 08/29/23 13:55 10 mg ONCE ONE Administration Medical Decision Making Medical Decision Making [facility] Narrative: Patient presented with a chief complaint of headache history of migraines will insert IV, administer Reglan and Benadryl reassessed Differential Diagnosis Differential Diagnoses: The differential diagnosis associated with the presentation includes Migraine headache unlikely meningitis no fever no stiff neck, likely subarachnoid bleed no sudden onset no arthritic ever Lab Data 08/29/23 13:28 08/29/23 13:28 Labs: Lab Results 08/29/23 08/29/23 Range/Units 13:28 15:57 WBC 4.9 (4.8-10.8) X10*3/uL RBC 4.09 L (4.20-5.50) X10*6/uL Hgb 11.9 L (12.0-16.0) g/dl Hct 35.8 L (37.0-47.0) % MCV 87.5 (80.0-98.0) fL MCH 29.1 (27.0-33.0) pg MCHC 33.2 (31.0-35.0) g/dl RDW 13.2 (11.0-16.0) % Plt Count 233 D (160-400) X10*3/uL MPV 10.7 (9.4-12.3) fL Immature Gran % (Auto) 0.2 (0.0-0.4) % Neut % (Auto) 68.5 (45-73) % Lymph % (Auto) 24.4 (20-40) % Villalba % (Auto) 4.9 (2-11) % Eos % (Auto) 1.8 (0-4) % Baso % (Auto) 0.2 (0-2) % Lymph # (Auto) 1.2 (1.2-4.9) X10*3/uL Villalba # (Auto) 0.2 (0.1-1.2) X10*3/uL Eos # (Auto) 0.1 (0.0-0.4) X10*3/uL Baso # (Auto) 0.0 (0.0-0.2) X10*3/uL Abs Immat Gran (auto) 0.01 (0.00-0.03) X10*3/uL Absolute Neuts (auto) 3.3 (2.0-8.3) x10*3/uL Absolute Nucleated RBC 0.000 (0.0-0.012) X10*3/uL Nucleated RBC % (auto) 0.0 (0.0-0.2) /100WBC Sodium 143 (135-145) mmol/L Potassium 4.0 (3.3-5.1) mmol/L Chloride 106 (96-108) mmol/L Carbon Dioxide 28 (22-29) mmol/L Anion Gap 13 (12-20) BUN 15 (9-16) mg/dL Creatinine 0.85 (0.5-1.4) mg/dL Estim Creat Clear Calc 101.8 Estimated GFR > 60 Random Glucose 110 (60-115) mg/dL Calcium 9.8 (8.4-10.2) mg/dL Urine Test NEGATIVE (NEGATIVE) Influenza Type A (PCR) NEGATIVE (Negative) Influenza Type B (PCR) NEGATIVE (Negative) RSV RNA Qual (PCR) NEGATIVE (Negative) SARS-CoV-2 RNA (RT-PCR) NEGATIVE (Negative) Discharge Plan Discharge Clinical Impression: Migraine Qualifiers: Migraine type: unspecified Status migrainosus presence: without status migrainosus Intractability: not intractable Qualified Code(s): G43.909 - Migraine, unspecified, not intractable, without status migrainosus Patient Disposition: Still a Patient Prescriptions: No Action Tirosint 137 mcg capsule 137 mcg PO DAILY 30 Days Qty: 30 10RF Rx Instructions: dispense As written, brand medically necessary. Do not substitute. acyclovir [Zovirax] 5 % ointment 1 appl topical 6XD PRN (Reason: prn) 7 Days Qty: 30 0RF valacyclovir [Valtrex] 500 mg tablet 500 mg PO DAILY 30 Days Qty: 30 1RF fluconazole 150 mg tablet 150 mg PO DAILY Qty: 1 0RF Rx Instructions: administer on day 1 of therapy promethazine 25 mg tablet 25 mg PO Q6H PRN (Reason: Nausea, vomiting, headache) Qty: 10 0RF Excedrin Extra Strength 250-250-65 mg tablet 1 tab PO Q4-6H PRN senna 8.6 mg capsule 8.6 mg PO BEDTIME propranolol 60 mg capsule,extended release 24 hr 60 mg PO DAILY Calmoseptine 0.44-20.6 % ointment 1 appl topical QID PRN (Reason: skin irritation) Qty: 71 4RF docusate sodium [Colace] 100 mg capsule 100 mg PO DAILY Qty: 30 4RF clonazepam 0.5 mg tablet 0.25 mg PO BID (DME) Anti-pronation orthotics See Rx Instructions .ROUTE .MEDSUPPLY Qty: 1 0RF Rx Instructions: Anti-pronation orthotics epinephrine 0.3 mg/0.3 mL auto-injector IM fluticasone propionate 50 mcg/actuation spray,suspension 2 spray intranasal DAILY cyclobenzaprine 5 mg tablet 5 mg PO BID PRN (Reason: muscle spasm) Qty: 60 0RF diclofenac sodium [Voltaren Arthritis Pain] 1 % gel 4 g topical QID Qty: 100 0RF clotrimazole-betamethasone 1-0.05 % cream 1 appl topical BID 7 Days Qty: 45 0RF Rx Instructions: apply externally a thin coat to the area cholecalciferol (vitamin D3) 25 mcg (1,000 unit) tablet 25 mcg PO QAM cyanocobalamin (vitamin B-12) 1,000 mcg tablet 1,000 mcg PO DAILY topiramate 50 mg tablet 50 mg PO BID trazodone 100 mg tablet 100 mg PO BEDTIME PRN amitriptyline 25 mg tablet 50 mg PO BEDTIME montelukast 10 mg tablet 10 mg PO DAILY bupropion HCl 300 mg tablet extended release 24 hr 300 mg PO QAM Vitamin Plus Low Iron 27 mg iron- 1 mg tablet 1 tab PO DAILY Qty: 90 4RF albuterol sulfate [ProAir HFA] 90 mcg/actuation HFA aerosol inhaler 2 puff inhalation Q6H PRN (Reason: shortness of breath or wheezing) 30 Days Qty: 1 6RF fluticasone propion-salmeterol [Wixela Inhub] 250-50 mcg/dose blister with device 1 inh inhalation BID 30 Days Qty: 1 6RF Print Language: Thai
[2023-08-29 13:56] VITALS: BP 155/93; PULSE 66; RESP 16; TEMP 36.7; O2SAT 100
[2023-08-29] MEDS: Metoclopramide HCl 10 MG/2 ML VIAL IVPUSH (14:05)
[2023-08-29] MEDS: diphenhydrAMINE HCL 50 MG/ML VIAL 25 MG IVPUSH (14:05)
[2023-08-29] MEDS: 0.9 % Sodium Chloride 1,000 ML 999 ML IVCONT (14:06)
--- NOTE | 2023-08-29 14:16 | PC.NURSE ---
a&ox4. vss and up to date aside from being slightly hypertensive. 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 pt presents to the ED from triage w/ migraine on the left side of her head/photophobia x days. pt verbalizes hx of migraines. she's been using excedrin at home w/o relief. pt prescribed sumatriptan via PCP but afraid to take it with excedrin. pt tearful during assessment. rating pain a 10/10. 20gIV placed in the left AC - medication/IVF administered per provider order. effectiveness pending. lights dimmed to promote comfort. no sob/wob ntoed. respirations even/unlabored. pt aware urine sample is needed. plan of care ongoing. call toro placed within reach.
[2023-08-29 15:23] LABS: Influenza A PCR NEGATIVE (Negative); Influenza B PCR NEGATIVE (Negative); Resp Syncy Virus RNA Qual PCR NEGATIVE (Negative); SARS COV2 PCR INHOUSE NEGATIVE (Negative)
[2023-08-29 15:30] VITALS: BP 122/69; PULSE 67; RESP 14; TEMP 36.8; O2SAT 100
[2023-08-29] MEDS: Ketorolac Tromethamine 15 MG/ML VIAL IVPUSH (15:57)
--- NOTE | 2023-08-29 15:58 | PC.NURSE ---
pt still verbalizing 8/10 SANTAMARIA despite previous interventions. MD notified/aware. pt remedicated. effectiveness pending. urine obtained/sent to lab.
[2023-08-29 16:17] LABS: UPreg QC Valid YES; Urine Pregnancy NEGATIVE (NEGATIVE)
[2023-08-29 17:41] VITALS: BP 122/69; PULSE 67; RESP 14; TEMP 36.8; O2SAT 100
== END 2023-08-29 18:08 | disposition home or self-care (01) ==
PROVIDERS: Nurse Practitioner Family; Emergency Provider Emergency Medicine; PCP Student in an Organized Health Care Education/Training Program
DX: G43.909 Migraine, unspecified, not intractable, without status migrainosus (principal); R11.2 Nausea with vomiting, unspecified; Z03.818 Encounter for observation for suspected exposure to other biological agents ruled out; Z79.899 Other long term (current) drug therapy
CPT/HCPCS: 0241U; 36415; 80048; 81025; 85025; 96360; 96374; 96375; 99284; 99285; J1200; J1885; J2765

== ENCOUNTER 2023-09-06 09:40 | Outpatient (REF) | payer MEDICAID, SELFPAY ==
--- NOTE | ~2023-09-06 | MR_ITS ---
EXAMINATION: MRI PELVIS WITH AND WITHOUT CONTRAST CLINICAL INFORMATION: Abnormal findings on diagnostic imaging COMPARISON: Pelvic ultrasound 06/25/2023, CT abdomen and pelvis 01/26/2023 TECHNIQUE: Multiple routine MRI sequences through the pelvis were obtained before and after the uneventful administration of 10 mL of Gadavist gadolinium-based IV contrast. FINDINGS: UTERUS: Anteverted uterus has a normal configuration and is normal in size. Endometrium is uniform and measures 1 cm in thickness. Junctional zone is normal in signal and thickness. No focal uterine mass seen. CERVIX: Nabothian cysts in the cervix. VAGINA: Unremarkable. OVARIES: Physiologic left ovarian corpus luteum. The right ovary is unremarkable with no definite MRI correlate to the suspected sonographic finding. KIDNEYS AND VISUALIZED UPPER ABDOMEN: Two normally positioned kidneys are seen. No hydronephrosis. A 1.5 cm T2 bright lesion in the right hepatic lobe suboptimally evaluated. VISUALIZED GI TRACT: Unremarkable. BLADDER: Unremarkable. PELVIC FREE FLUID: No free fluid or ascites. LYMPH NODES: No pathologically enlarged lymph nodes. OSSEOUS STRUCTURES: No acute or suspicious osseous abnormalities. SOFT TISSUES: Tiny fat-containing umbilical hernia. MR/MR pelvis wo/w con IMPRESSION: 1. The right ovary is unremarkable with no definite MRI correlate to the suspected sonographic finding. 2. A 1.5 cm T2 bright lesion in the right hepatic lobe suboptimally evaluated, though possibly a cyst or hemangioma. Recommend correlation with right upper quadrant ultrasound for further assessment and if the right upper quadrant ultrasound is nondiagnostic, contrast-enhanced MR abdomen could be obtained for definitive characterization. Electronically signed by: Giselle Curtis MD 09/30/2023 11:36 AM EDT
[2023-09-06] MEDS: gadobutroL 10 ML VIAL IVPUSH (11:08)
== END 2023-09-06 09:41 | disposition home or self-care (01) ==
LOC: HO.MRI 09:40
PROVIDERS: PCP Student in an Organized Health Care Education/Training Program; Visit Provider Advanced Practice Midwife
DX: R93.5 Abnormal findings on diagnostic imaging of other abdominal regions, including retroperitoneum (principal)
CPT/HCPCS: 72197; A9585

== ENCOUNTER 2023-10-01 08:38 | Outpatient (REF) | payer MEDICAID, SELFPAY | END 2023-10-01 08:39 | disposition home or self-care (01) | LOC: HO.LAB 08:38 | PROVIDERS: PCP Student in an Organized Health Care Education/Training Program; Visit Provider Advanced Practice Midwife | DX: Z71.2 Person consulting for explanation of examination or test findings (principal); Z32.02 Encounter for pregnancy test, result negative; R93.5 Abnormal findings on diagnostic imaging of other abdominal regions, including retroperitoneum | CPT/HCPCS: 81003; 81025; 99212 ==

== ENCOUNTER 2023-10-01 08:38 | Outpatient (AMB) | payer MEDICAID, SELFPAY ==
--- NOTE | 2023-10-01 08:44 | A.OFFVIS_ITS ---
Vital Signs 10/01/23 08:49 Height 5 ft 3 in Weight 226 lb BMI 40.0 BP 92/60 Intake Visit Reasons: MRI results Intake Note: pt c/o odor with urination, wants to be tested for bv Allergies No Known Allergies Allergy (Verified 10/01/23 08:44) Is last menstrual period known: Yes Last menstrual period: 08/15/23 HPI Comments Details: Patient is here today for MRI follow up due to history of pelvic pain and prior ultrasound that reported a hypoechoic area that was enlarging on the right ovary. She has concerns for vaginal odor and some external itching, she simply use some qapd-qda-uzauxst yeast treatment and feels her symptoms have improved. She denies any pelvic pain today. She reports being late for her cycle, UPT is negative. History of infertility. Plans to return [facility] for follow up. Additionally she reports she was having issues with [facility] or having her medication for HSV, despite validation that it was transmitted 2 days ago. [facility] Medical History Internal and external bleeding hemorrhoids Pruritus ani Migraine Anxiety B12 deficiency Vitamin D deficiency Obesity Postablative hypothyroidism Surgical History Hx of dilation and curettage Family History Father Cancer Mother Hypertension Diabetes High cholesterol CVD (cardiovascular disease) Social History Household Members Other:: daughter Housing: House Alcohol intake: never Patient Tobacco Use Status: Never used Tobacco Current occupational status: unemployed Sexual orientation: Straight/Heterosexual Gender identity: Female Female Reproductive History Menstrual Date of last menstrual period: 08/15/23 Review of Systems Const All systems reviewed & are unremarkable except as noted in HPI and below Physical Exam Const General: cooperative, healthy appearing and no acute distress Orientation/consciousness: patient oriented x3 GI Inspection: Yes normal to inspection Palpation (GI): Soft to palpation and Other GI palpation findings present (Nontender) Rectal Exam - Female: visual inspection normal General: Yes bladder normal to palpation External Female Exam: normal appearance of the urethra Speculum Exam - Vagina: normal appearance of the vagina, normal palpation and normal vaginal discharge Speculum Exam - Cervix: normal appearance of the cervix, normal palpation and Abnormal cervical discharge present (Adherent white discharge) Bimanual exam- vagina & uterus: normal bimanual exam, normal palpation, uterine size normal, bladder normal to palpation, normal palpation, uterine shape normal and non-tender Bimanual Exam- Adnexa, other: normal adnexae Neuro General: patient oriented x3 Results AMB Test Urine AMB Test Urine Negative Last Edit by KOURTNEY Paniagua on 10/01/23 08:56 AMB Urinalysis, Automated UA Leukoctes 0.5 Hallie/uL Last Edit by KOURTNEY Paniagua on 10/01/23 08:5 6 UA Nitrite Negative Last Edit by KOURTNEY Paniagua on 10/01/23 08:56 UA Urobilinogen 0 mg/dL Last Edit by KOURTNEY Paniagua on 10/01/23 08:5 6 UA Protein 0 mg/dL Last Edit by KOURTNEY Paniagua on 10/01/23 08:56 UA pH 5.5 Last Edit by KOURTNEY Paniagua on 10/01/23 08:56 UA Blood 0 Jose Luis/uL Last Edit by KOURTNEY Paniagua on 10/01/23 08:56 UA Specific [place] 1.020 Last Edit by KOURTNEY Paniagua on 10/01/23 08:56 UA Ketone Negative Last Edit by KOURTNEY Paniagua on 10/01/23 08:56 UA Bilirubin 0 mg/dL Last Edit by KOURTNEY Paniagua on 10/01/23 08:56 UA Glucose 0 mg/dL Last Edit by KOURTNEY Paniagua on 10/01/23 08:56 Results Reviewed Results Reviewed: [address] [address] Magnetic Resonance Report Signed Patient: Catalina Wood MR#: [id number] : 1985 Acct:[id number] Age/Sex: 37 / F ADM Date: 09/06/23 Loc: HO.MRI Attending Dr: Sparkle Maldonado CNM Ordering Physician: Sparkle Maldonado CNM Date of Service: 09/06/23 Procedure(s): MR pelvis wo/w con Accession Number(s): [id number] cc: Sparkle Maldonado CNM; Roberta Burroughs MD~ EXAMINATION: MRI PELVIS WITH AND WITHOUT CONTRAST CLINICAL INFORMATION: Abnormal findings on diagnostic imaging COMPARISON: Pelvic ultrasound 06/25/2023, CT abdomen and pelvis 01/26/2023 TECHNIQUE: Multiple routine MRI sequences through the pelvis were obtained before and after the uneventful administration of 10 mL of Gadavist gadolinium-based IV contrast. FINDINGS: UTERUS: Anteverted uterus has a normal configuration and is normal in size. Endometrium is uniform and measures 1 cm in thickness. Junctional zone is normal in signal and thickness. No focal uterine mass seen. CERVIX: Nabothian cysts in the cervix. VAGINA: Unremarkable. OVARIES: Physiologic left ovarian corpus luteum. The right ovary is unremarkable with no definite MRI correlate to the suspected sonographic finding. KIDNEYS AND VISUALIZED UPPER ABDOMEN: Two normally positioned kidneys are seen. No hydronephrosis. A 1.5 cm T2 bright lesion in the right hepatic lobe suboptimally evaluated. VISUALIZED GI TRACT: Unremarkable. BLADDER: Unremarkable. PELVIC FREE FLUID: No free fluid or ascites. LYMPH NODES: No pathologically enlarged lymph nodes. OSSEOUS STRUCTURES: No acute or suspicious osseous abnormalities. SOFT TISSUES: Tiny fat-containing umbilical hernia. MR/MR pelvis wo/w con IMPRESSION: 1. The right ovary is unremarkable with no definite MRI correlate to the suspected sonographic finding. 2. A 1.5 cm T2 bright lesion in the right hepatic lobe suboptimally evaluated, though possibly a cyst or hemangioma. Recommend correlation with right upper quadrant ultrasound for further assessment and if the right upper quadrant ultrasound is nondiagnostic, contrast-enhanced MR abdomen could be obtained for definitive characterization. 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 A 1.5 cm T2 bright lesion in the right hepatic lobe sub optimally evaluated, the possibly a cyst or hemangioma. Recommendation correlating with right upper quadrant ultrasound for further assessment and if the right upper quadrant ultrasound is nondiagnostic, contrast-enhanced MR abdominal could be obtained for definitive characterizati on. Copy of MRI was he see to her primary care at the [facility]. Advised to see her primary care for further discussion and planning of assessment for her hepatic lobe. Reviewed medication use, and to notify office ahead time if having concerns with prescriptions or the pharmacy filling it. Await BV panel and GC chlamydia cultures for results and plan of care. [facility] if any concerns to report to the office so that we can assist. Annual exam as scheduled 01/28/2024. All of her questions and concerns were addressed to the best of my ability and shared decision making. She is agreeable to the plan of care. This note is constructed using voice recognition software. While every effort has been made to ensure accuracy, cash clerk errors may have been included. Orders: Orders AMB HCG Urine Test Today Z32.02 - Encounter for test, result negative Bacterial Vaginosis Panel Today N89.8 - Other specified noninflammatory disorders of vagina AMB Urinalysis Automated Today R82.90 - Unspecified abnormal findings in urine CT NG by PCR Today N89.8 - Other specified noninflammatory disorders of vagina Coding Level of Care Code Est Pt Level 3 (01213) Diagnoses Abnormal ultrasound of ovary R93.5 Encounter to discuss test results Z71.2
[2023-10-01 08:49] VITALS: BP 92/60; BMI 40.0
== END 2023-10-01 09:10 | disposition home or self-care (01) ==
LOC: HO.HWS 08:38
PROVIDERS: PCP Student in an Organized Health Care Education/Training Program; Visit Provider Advanced Practice Midwife
DX: R93.5 Abnormal findings on diagnostic imaging of other abdominal regions, including retroperitoneum (principal); Z71.2 Person consulting for explanation of examination or test findings; Z32.02 Encounter for pregnancy test, result negative; R82.90 Unspecified abnormal findings in urine
CPT/HCPCS: 99213

== ENCOUNTER 2023-10-01 09:03 | Outpatient (REF) | payer MEDICAID, SELFPAY ==
[2023-10-02 12:55] LABS: Bacterial Vaginosis PCR NEGATIVE (Negative); Candida Group PCR DETECTED (Not Detect); Candida glab krusei PCR NOT DETECTED (Not Detect); Trichomonas vaginalis PCR NOT DETECTED (Not Detect)
[2023-10-02 13:25] LABS: CT PCR NOT DETECTED (Not Detect.); NG PCR NOT DETECTED (Not Detect.)
== END 2023-10-01 09:04 | disposition home or self-care (01) ==
LOC: HO.LNP 09:03
PROVIDERS: Visit Provider Advanced Practice Midwife
DX: N89.8 Other specified noninflammatory disorders of vagina (principal)
CPT/HCPCS: 0352U; 81003; 81025; 87491; 87591; 99212

== ENCOUNTER 2023-10-06 16:11 | Outpatient (REF) | payer MEDICAID, SELFPAY ==
[2023-10-06 16:56] LABS: Creatinine Urine 234.85 mg/dL; Microalbum/Creatinine Ratio Ur 5.1 ug/mg cr (<30)
[2023-10-07 05:44] LABS: CT PCR NOT DETECTED (Not Detect.); NG PCR NOT DETECTED (Not Detect.)
== END 2023-10-06 16:12 | disposition home or self-care (01) ==
LOC: HO.HHCLNP 16:11
PROVIDERS: Visit Provider Student in an Organized Health Care Education/Training Program
DX: Z00.00 Encounter for general adult medical examination without abnormal findings (principal)
CPT/HCPCS: 82043; 82570; 87491; 87591

== ENCOUNTER 2023-10-13 23:30 | Emergency (ER) | payer MEDICAID, SELFPAY ==
--- NOTE | 2023-10-13 | ECG_ITS ---
Test Reason : CP Blood Pressure : / mmHG Vent. Rate : 058 BPM Atrial Rate : 058 BPM P-R Int : 190 ms QRS Dur : 084 ms QT Int : 410 ms P-R-T Axes : 063 035 045 degrees QTc Int : 402 ms Sinus bradycardia Cannot rule out Anterior infarct (cited on or before 13-OCT-2023) Abnormal ECG When compared with ECG of 11-JUL-2023 01:10, QT has shortened Referred By: Generic ED Physician Electronically Signed By:ORVILLE HENRIQUEZ
--- NOTE | ~2023-10-13 | XR_ITS ---
EXAMINATION: XR CHEST CLINICAL INFORMATION: Chest pain COMPARISON: 07/11/2023 TECHNIQUE: Frontal view of the chest was obtained. FINDINGS: The lungs are clear with no focal consolidation. No evidence of pneumothorax, pulmonary edema, or pleural effusions. The cardiomediastinal silhouette is unremarkable. No acute osseous findings. XR/XR chest 1V IMPRESSION: No acute cardiopulmonary findings. Electronically signed by: Jose Durán MD 10/14/2023 02:54 AM EDT
--- NOTE | ~2023-10-13 | CT_ITS ---
EXAMINATION: CT HEAD WITHOUT CONTRAST CLINICAL INFORMATION: Headache COMPARISON: 02/20/2011 TECHNIQUE: Contiguous axial imaging was performed from the skull base to vertex without intravenous administration of contrast. This CT examination was performed using dose optimization techniques as appropriate, variously including the following: *Automated exposure control *Adjustment of mA and/or kV according to patient size (this includes techniques or standardized protocols for targeted exams where dose is matched to indication/reason for exam; i.e. extremities or head) *Use of iterative reconstruction technique DLP: 663 mGy-cm FINDINGS: There is no evidence of acute intracranial hemorrhage or territorial infarction. No abnormal mass-effect or midline shift is seen. Chaudhary to white matter differentiation is well preserved. No extra-axial fluid collections are identified. The ventricles are normal in size. There is no abnormal attenuation within the brain parenchyma. The osseous structures and soft tissues are normal. The mastoid air cells and visualized portions of the paranasal sinuses are well-aerated. CT/CT head/brain wo IV con IMPRESSION: No acute intracranial pathology. Electronically signed by: Jose Durán MD 10/14/2023 02:52 AM EDT
[2023-10-13 23:36] VITALS: BP 189/115; PULSE 68; RESP 16; TEMP 36.4; O2SAT 100; BMI 42.3
[2023-10-13 23:53] LABS: MANUAL DIFF FLAG NO
[2023-10-13 23:54] LABS: Basophils Percent Auto 0.3 % (0-2); Eosinophils Absolute Auto 0.2 X10*3/uL (0.0-0.4); Eosinophils Percent Auto 3.4 % (0-4); Hematocrit 35.9 % (37.0-47.0); Imm Gran Abs Auto 0.01 X10*3/uL (0.00-0.03); Imm Gran Pct Auto 0.2 % (0.0-0.4); Lymphocytes Absolute Auto 2.1 X10*3/uL (1.2-4.9); Lymphocytes Percent Auto 35.7 % (20-40); Mean Corpuscular HGB Conc 33.4 g/dl (31.0-35.0); Mean Corpuscular Hemoglobin 29.3 pg (27.0-33.0); Mean Corpuscular Volume 87.6 fL (80.0-98.0); Mean Platelet Volume 10.9 fL (9.4-12.3); Monocytes Absolute Auto 0.3 X10*3/uL (0.1-1.2); Monocytes Percent Auto 4.7 % (2-11); Neutrophils Absolute Auto 3.3 x10*3/uL (2.0-8.3); Neutrophils Percent Auto 55.7 % (45-73); Platelet Count 221 X10*3/uL (160-400); Red Cell Distribution Width 12.8 % (11.0-16.0); White Blood Count 5.9 X10*3/uL (4.8-10.8)
[2023-10-14 00:11] LABS: Alanine Aminotransferase 8 U/L (0-31); Albumin Level 4.1 g/dL (3.5-5.0); Alkaline Phosphatase 71 U/L (39-117); Anion Gap 12 (12-20); Aspartate Amino Transferase 15 U/L (5-31); Bilirubin Total 0.2 mg/dL (0.0-1.0); Blood Urea Nitrogen 15 mg/dL (9-16); Calcium 9.5 mg/dL (8.4-10.2); Carbon Dioxide 26 mmol/L (22-29); Chloride 107 mmol/L (96-108); Creatinine Clr Calc Pharmacy 84.1; Estimated Glomerular Filt Rate 58; Glucose Random 104 mg/dL (60-115); Lipase 32 U/L (8-78); Potassium 3.6 mmol/L (3.3-5.1); Sodium 141 mmol/L (135-145); Total Protein 7.2 g/dL (6.5-8.0)
[2023-10-14 00:19] LABS: Troponin-I High Sensitivity < 2.7 ng/L (<3.5-17.0)
--- NOTE | 2023-10-14 01:54 | ED_ITS ---
HPI - General Adult General Chief complaint: General Medical Stated complaint: Chest pain Time Seen by Provider: 10/14/23 01:45 Source: patient Mode of arrival: ambulatory Limitations: no limitations History of Present Illness ED Provider: DR. De La Vega HPI narrative: 37-year-old female history of migraine headache had migraine headache since morning, patient take her Excedrin which improved her headache, started to have headache again associated with feeling diaphoretic, chest pain and becoming anxious patient, checked her blood pressure and was high 160/109 patient did not take her blood pressure medication at home today. In the emergency department patient feeling dizzy, mild headache, improvement of the chest pain. Related Data Home Medications ?Medication ?Instructions ?Recorded ?Confirmed dgpulpr-ultinlqowsuwi-gfwruszk 250 1 tab PO Q4-6H PRN 12/18/19 06/28/23 mg-250 mg-65 mg tablet (Excedrin Extra Strength) propranolol 60 mg capsule,24 60 mg PO DAILY 12/18/19 06/28/23 hr,extended release sennosides 8.6 mg capsule (senna) 8.6 mg PO BEDTIME 12/18/19 06/28/23 clonazepam 0.5 mg tablet 0.25 mg PO BID 11/06/20 06/28/23 epinephrine 0.3 mg/0.3 mL IM anaphylaxis 05/21/22 06/28/23 injection, auto-injector amitriptyline 25 mg tablet 50 mg PO BEDTIME 11/19/22 06/28/23 bupropion HCl 300 mg 24 hr tablet, 300 mg PO QAM 11/19/22 06/28/23 extended release cholecalciferol (vitamin D3) 25 25 mcg PO QAM 11/19/22 06/28/23 mcg (1,000 unit) tablet cyanocobalamin (vitamin B-12) 1,000 mcg PO DAILY 11/19/22 1,000 mcg tablet montelukast 10 mg tablet 10 mg PO DAILY 11/19/22 06/28/23 topiramate 50 mg tablet 50 mg PO BID 11/19/22 06/28/23 trazodone 100 mg tablet 100 mg PO BEDTIME PRN 11/19/22 06/28/23 fluticasone propionate 50 2 spray intranasal DAILY 01/05/23 06/28/23 mcg/actuation nasal spray,suspension Previous Rx's ?Medication ?Instructions ?Recorded promethazine 25 mg tablet 25 mg PO Q6H PRN Nausea, vomiting, 01/09/20 headache #10 tabs Anti-pronation orthotics #1 ea 03/29/20 docusate sodium 100 mg capsule 100 mg PO DAILY #30 caps 05/13/20 (Colace) menthol 0.44 %-zinc oxide 20.6 % 1 appl topical QID PRN skin 05/13/20 topical ointment (Calmoseptine) irritation #71 grams Tirosint 137 mcg capsule 137 mcg PO DAILY 30 days #30 caps 10/15/22 (levothyroxine) cyclobenzaprine 5 mg tablet 5 mg PO BID PRN muscle spasm #60 01/05/23 tabs diclofenac sodium 1 % topical gel 4 g topical QID pain #100 grams 01/05/23 (Voltaren Arthritis Pain) vitamin with calcium 1 tab PO DAILY #90 tabs 01/12/23 no.72-iron 27 mg-folic acid 1 mg tablet ( Vitamins Plus Low Iron) valacyclovir 500 mg tablet 500 mg PO DAILY 30 days #30 tabs 02/11/23 (Valtrex) fluticasone 250 mcg-salmeterol 50 1 inh inhalation BID 30 days #1 ea 04/01/23 mcg/dose blistr powdr for inhalation (Wixela Inhub) clotrimazole-betamethasone 1 1 appl topical BID itching 7 days 06/15/23 %-0.05 % topical cream #45 grams fluconazole 150 mg tablet 150 mg PO DAILY 1 dose #1 tab 06/16/23 xihkfqsigj-lknrsplxkpidm-ruccgdju 1 cap PO Q6H PRN headache #14 caps 08/29/23 50 mg-300 mg-40 mg capsule (Fioricet) acyclovir 5 % topical ointment 1 appl topical 6XD 7 days #30 grams 09/29/23 albuterol sulfate 90 mcg/actuation 2 puff inhalation Q6H PRN 09/29/23 aerosol inhaler shortness of breath or wheezing 30 days #1 ea Allergies Allergy/AdvReac Type Severity Reaction Status Date / Time No Known Allergies Allergy Verified 10/13/23 23:40 Review of Systems 2 Review of Systems: All other systems are reviewed and are negative Constitutional: Reports as per HPI and Reports no additional constitutional complaints Eyes: Reports as per HPI and Reports no additional eye complaints Reports system reviewed and no additional complaints, except as documented Cardiovascular: Reports as per HPI and Reports no additional cardiovascular complaints Respiratory: Reports as per HPI and Reports no additional respiratory complaints Gastrointestinal: Reports as per HPI and Reports no additional gastrointestinal complaints Genitourinary: Reports no additional female genitourinary complaints Musculoskeletal: Reports no additional musculoskeletal complaints Skin/Breast: Reports system reviewed and no additional complaints, except as docu Psychiatric: Reports no additional psychiatric complaints Endocrine: Reports no additional endocrine complaints Hematologic/Lymphatic: Reports no additional hematologic/lymphatic complaints Allergic/Immunologic: Reports no additional allergic/immunologic complaints Reports system reviewed and no additional complaints, except as documented and Reports Abnormal speech present [facility] Past Medical History Medical History Internal and external bleeding hemorrhoids Pruritus ani Migraine Anxiety B12 deficiency Vitamin D deficiency Obesity Postablative hypothyroidism Surgical History Hx of dilation and curettage Family History Family History Father Cancer Mother Hypertension Diabetes High cholesterol CVD (cardiovascular disease) Social History Social History Household Members Other:: daughter Housing: House Alcohol intake: never Patient Tobacco Use Status: Never used Tobacco Smoked in Last 30 Days: No Use of substances other than those prescribed or required for medical reasons: No Advance Directives: No Advance Directives Information Provided: Yes Do you have a plan to hurt others: No Plan Patient : No Current occupational status: unemployed Sexual orientation: Straight/Heterosexual Gender identity: Female Physical Exam ED Vital Signs: Vital Signs - 24 hr 10/13/23 23:36 10/14/23 02:06 Temperature 97.6 F Pulse Rate 68 Respiratory Rate 16 Blood Pressure 189/115 H 149/86 H Pulse Oximetry 100 Oxygen Delivery Method Room Air BMI result Body Mass Index 42.3 Vital signs have been reviewed and appear to be correct. Blood pressure elevated. Heart rate normal. Respiratory rate normal. Temperature normal. Oxygen saturation normal. Appearance: Alert. Oriented X3. No acute distress. Head: Normal external exam. Normocephalic. Atraumatic. No Alonso signs noted. No raccoon eyes noted Eyes: PERRLA. EOMI. Conjunctiva and sclera normal. Eyelids normal. ENT: TM's Normal. Pharynx normal. Uvula midline. Moist mucous membranes. No trismus noted. No drooling noted. No muffled voice noted. Neck: Normal inspection. Neck supple. FROM. No adenopathy. Thyroid Normal. No meningeal signs. No neck mass noted. CVS: Normal heart rate and rhythm. Heart sound normal. No murmurs noted. Pulses normal throughout. Respiratory: No respiratory distress. Painless inspiration. Breath sounds normal. No wheezes/rales/rhonchi noted. Chest nontender. No accessory muscle usage noted or decreased air movement noted. Abdomen: Soft and nontender. Bowel sounds normal in all 4 quadrants. No distention noted. No organomegaly noted. No visible injury noted. Back: No CVA tenderness. Full range of motion noted. Skin: Skin warm and dry. Normal skin color. Normal skin turgor. No rashes/lesions/lacerations noted. Extremities: No lower extremity edema. Extremities exhibit normal range of motion. Extremities nontender. Neuro: Oriented X 3. Cranial nerve exam: II-XII are grossly intact No motor deficit. No sensory deficit. Reflexes normal. Course Reevaluation(s) Reevaluation #1: Patient feels better, no chest pain, negative workup for ACS, improvement of headache, and blood pressure. Will reassure and discharge. Time: 04:00 Medications Administered Discontinued Medications Generic Name Dose Route Start Last Admin Trade Name Freq PRN Reason Stop Dose Admin Amlodipine Besylate 2.5 mg 10/14/23 01:52 10/14/23 02:06 Amlodipine Besylate 2.5 Mg Tablet PO 10/14/23 01:53 2.5 mg ONCE ONE Administration Protocol Diphenhydramine HCl 25 mg 10/14/23 01:52 10/14/23 02:05 Diphenhydramine Hcl 50 Mg/Ml Vial IVPUSH 10/14/23 01:53 25 mg ONCE ONE Administration Sodium Chloride 1,000 mls @ 999 mls/hr 10/14/23 01:52 10/14/23 03:26 Ns IV 10/14/23 02:52 Infused .Q1H1M ONE Infusion Ondansetron HCl 4 mg 10/14/23 01:52 10/14/23 02:05 Ondansetron Hcl 4 Mg/2 Ml Vial IVPUSH 10/14/23 01:53 4 mg ONCE ONE Administration Medical Decision Making Differential Diagnosis Differential Diagnoses: The differential diagnosis associated with the presentation includes (ACS, hypertensive urgency, hypertensive emergency, migraine headache, intracranial bleed, , electrolyte derangement, severe anemia, migraine.) Admission/Observation Consideration of admission/observation: Escalation of care including admission/observation considered Lab Data MDM Lab Attestation statement: I reviewed the patient's lab results. 10/13/23 23:48 10/13/23 23:48 Labs: Lab Results 10/13/23 10/14/23 Range/Units 23:48 03:33 WBC 5.9 (4.8-10.8) X10*3/uL RBC 4.10 L (4.20-5.50) X10*6/uL Hgb 12.0 (12.0-16.0) g/dl Hct 35.9 L (37.0-47.0) % MCV 87.6 (80.0-98.0) fL MCH 29.3 (27.0-33.0) pg MCHC 33.4 (31.0-35.0) g/dl RDW 12.8 (11.0-16.0) % Plt Count 221 (160-400) X10*3/uL MPV 10.9 (9.4-12.3) fL Immature Gran % (Auto) 0.2 (0.0-0.4) % Neut % (Auto) 55.7 (45-73) % Lymph % (Auto) 35.7 (20-40) % Grady % (Auto) 4.7 (2-11) % Eos % (Auto) 3.4 (0-4) % Baso % (Auto) 0.3 (0-2) % Lymph # (Auto) 2.1 (1.2-4.9) X10*3/uL Grady # (Auto) 0.3 (0.1-1.2) X10*3/uL Eos # (Auto) 0.2 (0.0-0.4) X10*3/uL Baso # (Auto) 0.0 (0.0-0.2) X10*3/uL Abs Immat Gran (auto) 0.01 (0.00-0.03) X10*3/uL Absolute Neuts (auto) 3.3 (2.0-8.3) x10*3/uL Absolute Nucleated RBC 0.000 (0.0-0.012) X10*3/uL Nucleated RBC % (auto) 0.0 (0.0-0.2) /100WBC Sodium 141 (135-145) mmol/L Potassium 3.6 (3.3-5.1) mmol/L Chloride 107 (96-108) mmol/L Carbon Dioxide 26 (22-29) mmol/L Anion Gap 12 (12-20) BUN 15 (9-16) mg/dL Creatinine 1.06 (0.5-1.4) mg/dL Estim Creat Clear Calc 84.1 Estimated GFR 58 Random Glucose 104 (60-115) mg/dL Calcium 9.5 (8.4-10.2) mg/dL Total Bilirubin 0.2 (0.0-1.0) mg/dL AST 15 (5-31) U/L ALT 8 (0-31) U/L Alkaline Phosphatase 71 (39-117) U/L Troponin I High Sens < 2.7 < 2.7 (<3.5-17.0) ng/L Total Protein 7.2 (6.5-8.0) g/dL Albumin 4.1 (3.5-5.0) g/dL Lipase 32 (8-78) U/L Beta HCG, Quant < 2 mIU/mL Independent Interpretation I performed an independent interpretation of an: EKG (Normal sinus bradycardia at 58, normal intervals, no change from previous EKG.), Plain X-Ray (Chest no acute intracranial pathology.) and CT Scan (Head: No acute intracranial pathology.) Radiology Impression Discussion of test interpretation with radiology: I have reviewed the radiologist's reading. Discharge Plan Discharge Clinical Impression: Headache, migraine, Chest pain, Hypertension Patient Disposition: Home, Self-Care Instructions: Chest Pain (ED), Migraine Headache (ED) Prescriptions: No Action Tirosint 137 mcg capsule 137 mcg PO DAILY 30 Days Qty: 30 10RF Rx Instructions: dispense As written, brand medically necessary. Do not substitute. valacyclovir [Valtrex] 500 mg tablet 500 mg PO DAILY 30 Days Qty: 30 1RF fluconazole 150 mg tablet 150 mg PO DAILY Qty: 1 0RF Rx Instructions: administer on day 1 of therapy acyclovir 5 % ointment 1 appl topical 6XD 7 Days Qty: 30 0RF promethazine 25 mg tablet 25 mg PO Q6H PRN (Reason: Nausea, vomiting, headache) Qty: 10 0RF dhhaipfbnk-rxstsurtwjhqk-byvz [Fioricet] 50-300-40 mg capsule 1 cap PO Q6H PRN (Reason: headache) Qty: 14 0RF Excedrin Extra Strength 250-250-65 mg tablet 1 tab PO Q4-6H PRN senna 8.6 mg capsule 8.6 mg PO BEDTIME propranolol 60 mg capsule,extended release 24 hr 60 mg PO DAILY Calmoseptine 0.44-20.6 % ointment 1 appl topical QID PRN (Reason: skin irritation) Qty: 71 4RF docusate sodium [Colace] 100 mg capsule 100 mg PO DAILY Qty: 30 4RF clonazepam 0.5 mg tablet 0.25 mg PO BID (DME) Anti-pronation orthotics See Rx Instructions .ROUTE .MEDSUPPLY Qty: 1 0RF Rx Instructions: Anti-pronation orthotics epinephrine 0.3 mg/0.3 mL auto-injector IM fluticasone propionate 50 mcg/actuation spray,suspension 2 spray intranasal DAILY cyclobenzaprine 5 mg tablet 5 mg PO BID PRN (Reason: muscle spasm) Qty: 60 0RF diclofenac sodium [Voltaren Arthritis Pain] 1 % gel 4 g topical QID Qty: 100 0RF clotrimazole-betamethasone 1-0.05 % cream 1 appl topical BID 7 Days Qty: 45 0RF Rx Instructions: apply externally a thin coat to the area albuterol sulfate 90 mcg/actuation HFA aerosol inhaler 2 puff inhalation Q6H PRN (Reason: shortness of breath or wheezing) 30 Days Qty: 1 6RF cholecalciferol (vitamin D3) 25 mcg (1,000 unit) tablet 25 mcg PO QAM cyanocobalamin (vitamin B-12) 1,000 mcg tablet 1,000 mcg PO DAILY topiramate 50 mg tablet 50 mg PO BID trazodone 100 mg tablet 100 mg PO BEDTIME PRN amitriptyline 25 mg tablet 50 mg PO BEDTIME montelukast 10 mg tablet 10 mg PO DAILY bupropion HCl 300 mg tablet extended release 24 hr 300 mg PO QAM Vitamin Plus Low Iron 27 mg iron- 1 mg tablet 1 tab PO DAILY Qty: 90 4RF fluticasone propion-salmeterol [Wixela Inhub] 250-50 mcg/dose blister with device 1 inh inhalation BID 30 Days Qty: 1 6RF Referrals: Roberta Burroughs MD [Primary Care Provider] - Print Language: Turkmen
[2023-10-14] MEDS: diphenhydrAMINE HCL 50 MG/ML VIAL 25 MG IVPUSH (02:05)
[2023-10-14] MEDS: ondansetron HCL 4 MG/2 ML VIAL IVPUSH (02:05)
[2023-10-14 02:06] VITALS: BP 149/86
[2023-10-14] MEDS: amLODIPine Besylate 2.5 MG TABLET PO (02:06)
[2023-10-14] MEDS: 0.9 % Sodium Chloride 1,000 ML 999 ML IV (02:06)
[2023-10-14 02:23] LABS: HCG Quantitative < 2 mIU/mL
[2023-10-14 04:02] LABS: Troponin-I High Sensitivity < 2.7 ng/L (<3.5-17.0)
[2023-10-14 05:18] VITALS: BP 147/88; PULSE 65; RESP 18; TEMP 36.6; O2SAT 99
== END 2023-10-14 05:18 | disposition home or self-care (01) ==
PROVIDERS: Emergency Provider Emergency Medicine; PCP Student in an Organized Health Care Education/Training Program
DX: G43.909 Migraine, unspecified, not intractable, without status migrainosus (principal); R07.9 Chest pain, unspecified; I10 Essential (primary) hypertension; Z79.82 Long term (current) use of aspirin; Z79.899 Other long term (current) drug therapy
CPT/HCPCS: 36415; 70450; 71045; 80053; 83690; 84484; 84702; 85025; 93005; 96361; 96374; 96375; 99284; 99285; J1200; J2405

== ENCOUNTER 2023-10-26 13:22 | Outpatient (AMB) | payer MEDICAID, SELFPAY ==
--- NOTE | 2023-10-26 13:24 | A.OFFVIS_ITS ---
Vital Signs 10/26/23 13:25 Height 5 ft 3 in Weight 229 lb 0.964 oz BMI 40.6 BP 130/74 Blood Pressure Location Lt brachial Position Sitting Pulse 81 Pulse Source Pulse Oximeter Intake Visit Reasons: Hypothyroidism (Adult) [employer] Required: No Accompanied by: Self / Same As Patient Allergies No Known Allergies Allergy (Verified 10/26/23 13:29) Medication List - Last Reconciled 10/26/23 by Roopa Rogers MD acyclovir 5% 1 appl topical 6XD 7 days albuterol sulfate 90 mcg/actuation 2 puffs inhalation Q6H PRN 30 days amitriptyline 50 mg PO BEDTIME [Anti-pronation orthotics Anti-pronation orthotics] zdegove-oxglwgnstoshr-lhzwxzmc 250-250-65 mg (Excedrin Extra Strength) 1 tab PO Q4-6H PRN bupropion HCl XL 300 mg PO QAM kochdgseco-mbypozwmeiama-jqsp 50-300-40 mg (Fioricet) 1 cap PO Q6H PRN cholecalciferol (vitamin D3) 25 mcg PO QAM clonazepam 0.25 mg PO BID clotrimazole-betamethasone 1-0.05 % 1 appl topical BID 7 days cyanocobalamin (vitamin B-12) 1,000 mcg PO DAILY cyclobenzaprine 5 mg PO BID PRN diclofenac sodium 1% (Voltaren Arthritis Pain) 4 grams topical QID docusate sodium (Colace) 100 mg PO DAILY epinephrine IM fluconazole 150 mg PO DAILY 1 dose fluticasone propion-salmeterol 250-50 mcg/dose (Wixela Inhub) 1 inh inhalation BID 30 days fluticasone propionate 50 mcg/actuation 2 sprays intranasal DAILY menthol-zinc oxide 0.44-20.6 % (Calmoseptine) 1 appl topical QID PRN montelukast 10 mg PO DAILY olmesartan 20 mg PO DAILY PNV,calcium 34-vysp-ipphz acid 27 mg iron- 1 mg ( Vitamins Plus Low Iron) 1 tab PO DAILY promethazine 25 mg PO Q6H PRN propranolol ER 60 mg PO DAILY sennosides (senna) 8.6 mg PO BEDTIME Tirosint (levothyroxine) 137 mcg PO DAILY NS topiramate 50 mg PO BID trazodone 100 mg PO BEDTIME PRN valacyclovir (Valtrex) 500 mg PO DAILY 30 days HPI Comments Details: 38-year-old female with postablative hypothyroidism, who presents for follow up. . Patient was last seeing Dr. Buck, last visit May 2023. HPI from prior visit Patient reports treated with SEGOVIA ablation of thyroid in her 20s. Subsequently has been treated with Tirosint. Currently remains on Tirosint 137 mcg daily. Has not taken it for the past week was run out of medication. Takes fasting am sometimes with water or juice. Eats 2 hours later. About 3 times a week takes medication at bedtime when forgets in AM Most recent labs from May 2023 showed normal thyroid function with TSH of 1.79 and free T4 of 1.47. Patient currently denies heat or cold intolerance, but does get diaphoresis, constipation, hair loss, palpitation, anxiety, weight changes, mood changes, low energy, changes in appearance of eyes or vision changes, tremors. ? Patient denies any difficulty swallowing, pain on swallowing or voice changes or difficulty breathing. Patient denies any history of childhood neck radiation. Denies having ever used lithium, amiodarone or biotin supplements. Patient denies any family history of thyroid cancer . Daughter and sister have thyroid disease. 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 Pulmonary: No SOB GI:No abdominal pain, no nausea or vomiting, no anorexia, no blood in stool : no burning micturition, dysuria or increase in urinary frequency Physical exam General: sitting comfortably in no acute distress HEENT: normocephalic/atraumatic, moist oral mucosa Neck: supple, symmetrical, no thyromegaly , no dorsocervical or supraclavicular fat pads Cardiac: normal heart sounds Pulm: normal breath sounds B/L, no added breath sounds Abd: not distended, no tenderness Extremities: no edema, no signs of myxedema PFSH Medical History Internal and external bleeding hemorrhoids Pruritus ani Migraine Anxiety B12 deficiency Vitamin D deficiency Obesity Postablative hypothyroidism Surgical History Hx of dilation and curettage Family History Father Cancer Mother Hypertension Diabetes High cholesterol CVD (cardiovascular disease) Social History Household Members Other:: daughter Housing: House Alcohol intake: never Patient Tobacco Use Status: Never used Tobacco Current occupational status: unemployed Sexual orientation: Straight/Heterosexual Gender identity: Female Physical Exam Vital Signs: Last Vital Signs Pulse 81 10/26/23 13:25 BP 130/74 10/26/23 13:25 BMI result Body Mass Index 40.6 Results Reviewed Results Reviewed: Laboratory Tests 01/09/20 06/14/20 11/07/20 13:40 15:33 15:45 TSH 0.44 5.49 H 12.64 H Free T4 1.29 1.12 1.15 07/15/22 11/13/22 05/17/23 13:02 13:16 08:11 TSH 3.97 7.68 H 1.79 Free T4 1.29 1.05 1.47 Assessment & Plan Assessment & Plan (1) Postablative hypothyroidism: Code(s): E89.0 - Postprocedural hypothyroidism Category: Medical Plan: Patient with history of SEGOVIA ablation in her 20s, who is being managed for postablative hypothyroidism. She remains on Tirosint 137 mcg daily. She has not taken it for the past week because she ran out of refills. She does complain of difficulty losing weight and constipation, otherwise no symptoms of hypothyroidism or hyperthyroidism. I have asked her to restart taking her medication and have sent refills. After taking it consistently for the next 6 weeks I have asked her to do blood work. I also reviewed with her importance of taking it at the same time, and only eating and with water and waiting at least an hour before she eats or even drinks coffee. Plan: -continue Tirosint 137 mcg daily -ordered TSH, free T4 to be done in 6 weeks -follow up in 1 year Plan I spent 30 minutes in reviewing the record, seeing the patient and documenting in the medical record. Orders: Orders Thyroid Stimulating Hormone 6 Weeks E89.0 - Postprocedural hypothyroidism Free T4 (Free Thyroxine) 6 Weeks E89.0 - Postprocedural hypothyroidism Patient Instructions: Refills sent to your pharamcy Continue taking tirosint 137 mcg daily Do blood work in 6 weeks We will give you a call about results Follow up in 1 year Coding Level of Care Code Est Pt Level 4 (96670) Diagnoses Postablative hypothyroidism E89.0 Time Spent (min) 30
[2023-10-26 13:25] VITALS: BP 130/74; PULSE 81; BMI 40.6
== END 2023-10-26 13:58 | disposition home or self-care (01) ==
PROVIDERS: PCP Student in an Organized Health Care Education/Training Program; Visit Provider Student in an Organized Health Care Education/Training Program
DX: E89.0 Postprocedural hypothyroidism (principal)
CPT/HCPCS: 99214

== ENCOUNTER → 2023-10-26 13:22 | Outpatient (BNVA) | payer MEDICAID, SELFPAY | PROVIDERS: PCP Student in an Organized Health Care Education/Training Program; Visit Provider Student in an Organized Health Care Education/Training Program | DX: E89.0 Postprocedural hypothyroidism (principal) | CPT/HCPCS: 99212 ==

== ENCOUNTER 2023-10-28 09:48 | Outpatient (REF) | payer MEDICAID, SELFPAY ==
--- NOTE | ~2023-10-28 | US_ITS ---
EXAMINATION: US ABDOMEN COMPLETE CLINICAL INFORMATION: Liver cyst seen on recent MRI. COMPARISON: MR pelvis 09/06/2023. CT abdomen and pelvis 01/26/2013. TECHNIQUE: Real-time imaging of the abdominal viscera. Limited visualization due to bowel gas. FINDINGS: PANCREAS: Limited visualization of pancreatic tail and head. Imaged portion of pancreatic body is unremarkable. ABDOMINAL AORTA: Limited visualization of the abdominal aorta. INFERIOR VENA CAVA: Limited visualization. LIVER: Multiple echogenic hepatic lesions, largest right lower hepatic lobe measures 0.8 x 0.5 x 0.8 cm and central right hepatic lobe 0.8 x 0.5 x 0.8 cm. While some of these lesions are characteristic of calcifications, possibly old granulomatous disease, some are difficult to characterize due to limited visualization and/or small size. Mildly increased hepatic parenchymal heterogeneity and echogenicity could be associated with hepatocellular disease/hepatic steatosis and substantially limits visualization. Correlation with liver function tests and clinical exam recommended to determine further management. GALLBLADDER: No gallstones. No gallbladder wall thickening. COMMON BILE DUCT: Normal in caliber measuring 0.3 cm in diameter. RIGHT KIDNEY: No hydronephrosis. No renal calculi. Limited visualization. Lobulated renal contour difficult to evaluate due to limited visualization. The kidney measures 11.2 cm in maximum dimension. LEFT KIDNEY: No hydronephrosis. No renal calculi. Limited visualization. Lobulated renal contour difficult to evaluate due to limited visualization. The kidney measures 12.5 cm in maximum dimension. SPLEEN: Normal. The spleen measures 10.1 cm in maximum dimension. FREE FLUID: None. US/US abdomen complete IMPRESSION: 1. Multiple echogenic hepatic lesions, largest right lower hepatic lobe measures 0.8 x 0.5 x 0.8 cm and central right hepatic lobe 0.8 x 0.5 x 0.8 cm. While some of these lesions are characteristic of calcifications, possibly old granulomatous disease, some are difficult to characterize due to limited visualization and/or small size. 2. Mildly increased hepatic parenchymal heterogeneity and echogenicity could be associated with hepatocellular disease/hepatic steatosis and substantially limits visualization. Correlation with liver function tests and clinical exam recommended to determine further management. Electronically signed by: Eliza Davis MD 11/02/2023 01:38 PM EDT
== END 2023-10-28 09:49 | disposition home or self-care (01) ==
LOC: HO.US 09:48
PROVIDERS: PCP Student in an Organized Health Care Education/Training Program; Visit Provider Student in an Organized Health Care Education/Training Program
DX: K76.89 Other specified diseases of liver (principal)
CPT/HCPCS: 76700

== ENCOUNTER 2023-11-04 15:44 | Outpatient (AMB) | payer MEDICAID, SELFPAY ==
--- NOTE | 2023-11-04 15:47 | A.OFFVIS_ITS ---
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 Additionally she had started her menstrual cycle today, the flow is moderate. Prior to the menstrual cycle onset she had in crease vaginal odor and discharge unsure if her odor is from the urine or the vaginal discharge. [facility] Medical History (Updated 11/04/23 @ 16:17 by Sparkle Maldonado CNM) Vulvar itching Abnormal urine odor Internal and external bleeding hemorrhoids Pruritus ani Migraine Anxiety B12 deficiency Vitamin D deficiency Obesity Postablative hypothyroidism Surgical History Hx of dilation and curettage Family History Father Cancer Mother Hypertension Diabetes High cholesterol CVD (cardiovascular disease) Social History Household Members Other:: daughter Housing: House Alcohol intake: never Patient Tobacco Use Status: Never used Tobacco Current occupational status: unemployed Sexual orientation: Straight/Heterosexual Gender identity: Female Review of Systems Const All systems reviewed & are unremarkable except as noted in HPI and below Physical Exam Vital Signs: Last Vital Signs BP 110/70 11/04/23 15:52 Const General: cooperative, healthy appearing and no acute distress Orientation/consciousness: patient oriented x3 GI Inspection: Yes normal to inspection Palpation (GI): Soft to palpation and Other GI palpation findings present (Nontender) Rectal Exam - Female: visual inspection normal Other: External erythema slight edema, no lesions General: Yes bladder normal to palpation External Female Exam: normal appearance of the urethra Speculum Exam - Vagina: normal appearance of the vagina, normal palpation, normal vaginal discharge and vaginal bleeding Speculum Exam - Cervix: normal appearance of the cervix and normal palpation Bimanual exam- vagina & uterus: normal bimanual exam, normal palpation, uterine size normal, bladder normal to palpation, normal palpation, uterine shape normal and non-tender Bimanual Exam- Adnexa, other: normal adnexae OB/external & speculum: vaginal bleeding Neuro General: patient oriented x3 Assessment & Plan Assessment & Plan (1) Abnormal urine odor: Code(s): R82.90 - Unspecified abnormal findings in urine Category: Medical (2) Vulvar itching: Code(s): L29.2 - Pruritus vulvae Category: Medical Plan BV, GC and chlamydia obtained. Patient currently unable to urinate orders for urine micro and culture if indicated sent to lab for processing patient will return to the lab for urinalysis. Instructions: Clean with warm water, no soaps, scented products. Use a cool cloth to the area several times a day if swollen and/or uncomfortable. Wear loose, cotton underclothes, avoid tight outer clothing. Air when possible. No coitus until well healed. Complete all medications as prescribed. Await final pending results for any changes in the plan of care. Call the office if there is no improvement in 24-48hrs., or if worsening symptoms. Await results for plan of care, initiate topical cream and Diflucan. Advised to patch test 1 side of topical cream before smearing everywhere in case there is sensitivity. All of her questions and concerns were addressed to the best of my ability and shared decision making. She is agreeable to the plan of care. This note is constructed using voice recognition software. While every effort has been made to ensure accuracy, automobile insurance claim examiner errors may have been included. Orders: Orders CT NG by PCR Today N89.8 - Other specified noninflammatory disorders of vagina Bacterial Vaginosis Panel Today N89.8 - Other specified noninflammatory disorders of vagina UA CC w/rflx Micro + Cult Today R82.90 - Unspecified abnormal findings in urine Medications: New fluconazole 150 mg PO ONCE 1 day 1 tab 0RF personal clotrimazole-betamethasone 1-0.05 % apply externally a thin coat to the area 1 appl topical BID 7 days 45 grams 0RF itching Coding Level of Care Code Est Pt Level 3 (13411) Diagnoses Abnormal urine odor R82.90 Vulvar itching L29.2
[2023-11-04 15:52] VITALS: BP 110/70
== END 2023-11-04 16:20 | disposition home or self-care (01) ==
LOC: HO.HWS 15:44
PROVIDERS: PCP Student in an Organized Health Care Education/Training Program; Visit Provider Advanced Practice Midwife
DX: R82.90 Unspecified abnormal findings in urine (principal); L29.2 Pruritus vulvae
CPT/HCPCS: 99213

== ENCOUNTER 2023-11-04 15:44 | Outpatient (REF) | payer MEDICAID, SELFPAY | END 2023-11-04 15:45 | disposition home or self-care (01) | LOC: HO.LNP 15:44 | PROVIDERS: PCP Student in an Organized Health Care Education/Training Program; Visit Provider Advanced Practice Midwife | DX: R82.90 Unspecified abnormal findings in urine (principal); L29.2 Pruritus vulvae | CPT/HCPCS: 99212 ==

== ENCOUNTER 2023-11-04 16:15 | Outpatient (REF) | payer MEDICAID, SELFPAY ==
[2023-11-05 05:52] LABS: CT PCR NOT DETECTED (Not Detect.); NG PCR NOT DETECTED (Not Detect.)
[2023-11-05 11:20] LABS: Bacterial Vaginosis PCR POSITIVE (Negative); Candida Group PCR NOT DETECTED (Not Detect); Candida glab krusei PCR NOT DETECTED (Not Detect); Trichomonas vaginalis PCR NOT DETECTED (Not Detect)
== END 2023-11-04 16:16 | disposition home or self-care (01) ==
LOC: HO.LAB 16:15
PROVIDERS: Visit Provider Advanced Practice Midwife
DX: N89.8 Other specified noninflammatory disorders of vagina (principal)
CPT/HCPCS: 0352U; 87491; 87591; 99212

== ENCOUNTER → 2023-11-18 11:04 | Outpatient (REF) | payer MEDICAID, SELFPAY | LOC: HO.SL 11:04 | PROVIDERS: PCP Student in an Organized Health Care Education/Training Program; Visit Provider Nurse Practitioner Family | DX: G47.19 Other hypersomnia (principal); R06.83 Snoring; G47.9 Sleep disorder, unspecified | CPT/HCPCS: 95806 ==

== ENCOUNTER → 2023-11-18 11:15 | Outpatient (BNV) | payer MEDICAID, SELFPAY | PROVIDERS: PCP Student in an Organized Health Care Education/Training Program; Visit Provider Psychiatry & Neurology Neurology | DX: R06.83 Snoring (principal) | CPT/HCPCS: 95806 ==

== ENCOUNTER 2023-12-10 11:51 | Outpatient (REF) | payer MEDICAID, SELFPAY ==
[2023-12-10 13:44] LABS: Appearance Urine Turbid; Color Urine Yellow; Glucose Urine UA Negative (Negative); Leukocyte Esterase Urine Trace (Negative); Nitrite Urine Negative (Negative); PH 5.5 (5.0-9.0); Specific Gravity - Urine 1.025 (1.005-1.025); UMIC TRIGGER UACC YES; Urine Blood Negative (Negative); Urine Ketones Negative (Negative); Urine Protein Negative (Neg-Trace)
[2023-12-10 13:45] LABS: Prothrombin Time 11.8 SEC (10.9-12.4)
[2023-12-10 13:47] LABS: Hematocrit 33.6 % (37.0-47.0); Hemoglobin 11.2 g/dl (12.0-16.0); Mean Corpuscular HGB Conc 33.3 g/dl (31.0-35.0); Mean Corpuscular Hemoglobin 29.4 pg (27.0-33.0); Mean Corpuscular Volume 88.2 fL (80.0-98.0); Mean Platelet Volume 11.6 fL (9.4-12.3); Platelet Count 206 X10*3/uL (160-400); Red Blood Count 3.81 X10*6/uL (4.20-5.50); Red Cell Distribution Width 13.2 % (11.0-16.0)
[2023-12-10 13:47] LABS: Bacteria Urine Trace (None Seen); Hyaline Casts Urine 0-2 /LPF (0-2); RBC Urine 0-2 /HPF (0-2); WBC Urine 0-5 /HPF (0-5)
[2023-12-10 13:48] LABS: Partial Thromboplastin Time 32.8 SEC (26.0-36.8)
[2023-12-10 14:02] LABS: Estimated Average Glucose 94 mg/dL; Hemoglobin A1C 90.0882 umol/L; Hemoglobin A1c % 4.9 % (<6.0); Total Hemoglobin (HGBA1C) 2951.1243 umol/L
[2023-12-10 14:31] LABS: Alanine Aminotransferase 8 U/L (0-31); Albumin Level 4.1 g/dL (3.5-5.0); Alkaline Phosphatase 63 U/L (39-117); Anion Gap 10 (12-20); Aspartate Amino Transferase 20 U/L (5-31); Bilirubin Total 0.5 mg/dL (0.0-1.0); Blood Urea Nitrogen 17 mg/dL (9-16); Calcium 9.7 mg/dL (8.4-10.2); Carbon Dioxide 26 mmol/L (22-29); Chloride 108 mmol/L (96-108); Cholesterol 163 mg/dL (<200); Estimated Glomerular Filt Rate > 60; Free T4 (Free Thyroxine) 1.12 ng/dL (0.71-1.85); Glucose Random 86 mg/dL (60-115); HDL Cholesterol 54 mg/dL (>40); LDL Cholesterol Calculated 100 mg/dL (<100); Potassium 4.1 mmol/L (3.3-5.1); Sodium 140 mmol/L (135-145); Thyroid Stimulating Hormone 9.22 uIU/mL (0.32-4.0); Total Protein 7.1 g/dL (6.5-8.0); Triglycerides 49 mg/dL (<150); Vitamin D 25-OH Total 20.9 ng/mL (>30)
[2023-12-10 14:35] LABS: Folate 9.4 ng/mL (> or = 4.0); Vitamin B12 263 pg/mL (200-900)
[2023-12-11 08:47] LABS: HBc Num1 0.12 S/CO (0.00-0.79); HBsAGNum1 0.34 S/CO (0.00-0.99); HIV AB/AG Nonreactive (Nonreactive); HIV Num 1 0.05 S/CO (0.00-0.99); Hepatitis B Core Antibody Nonreactive (Nonreactive); Hepatitis B Surface Antigen Negative (Negative); ~HepC Num1 0.12 S/CO (0.00-0.79); ~Hepatitis B Surface Antibody REACTIVE (Nonreactive); ~Hepatitis C Antibody Nonreactive (Nonreactive)
[2023-12-11 09:09] LABS: Syphilis Screen Nonreactive (Nonreactive)
[2023-12-11 09:31] LABS: Iron 68 mcg/dL (30-160); Percent Iron Saturation 28 % (15-50); Total Iron Binding Capacity 244 mcg/dL (228-428); Unsaturated Iron Binding 176 ug/dL
[2023-12-11 09:45] LABS: Ferritin 24 ng/mL (10-250)
== END 2023-12-10 11:52 | disposition home or self-care (01) ==
LOC: HO.HHCL 11:51
PROVIDERS: Visit Provider Student in an Organized Health Care Education/Training Program
DX: Z00.00 Encounter for general adult medical examination without abnormal findings (principal); Z11.4 Encounter for screening for human immunodeficiency virus [HIV]; D64.9 Anemia, unspecified; R30.0 Dysuria
CPT/HCPCS: 36415; 80053; 80061; 81001; 82306; 82607; 82728; 82746; 83036; 83540; 84439; 84443; 85027; 85610; 85730; 86704; 86706; 86780; 86803; 87340; 87389

== ENCOUNTER 2023-12-18 16:15 | Outpatient (REF) | payer MEDICAID, SELFPAY ==
[2023-12-18] MEDS: gadobutroL 10 ML VIAL IVPUSH (17:13)
== END 2023-12-18 16:16 | disposition home or self-care (01) ==
LOC: HO.MRI 16:15
PROVIDERS: PCP Student in an Organized Health Care Education/Training Program; Visit Provider Student in an Organized Health Care Education/Training Program
DX: K76.9 Liver disease, unspecified (principal)
CPT/HCPCS: 74183; A9585

== ENCOUNTER 2024-01-17 13:30 | Outpatient (AMB) | payer MEDICAID, SELFPAY ==
--- NOTE | 2024-01-17 13:36 | MHC.OFFVIS ---
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 Required: No Accompanied by: Self / Same As Patient Allergies No Known Allergies Allergy (Verified 01/17/24 13:39) Medication List - Last Reconciled 01/17/24 by ADDY Leung acyclovir 5% 1 appl topical 6XD 7 days albuterol sulfate 90 mcg/actuation 2 puffs inhalation Q6H PRN 30 days amitriptyline 50 mg PO BEDTIME [Anti-pronation orthotics Anti-pronation orthotics] vgqkcuy-eitzrhnzaikiv-bwvjnoiy 250-250-65 mg (Excedrin Extra Strength) 1 tab PO Q4-6H PRN bupropion HCl XL 300 mg PO QAM ffsrzevgzi-xddmhtdiqnsjn-ipis 50-300-40 mg (Fioricet) 1 cap PO Q6H PRN cholecalciferol (vitamin D3) 25 mcg PO QAM clonazepam 0.25 mg PO BID clotrimazole-betamethasone 1-0.05 % 1 appl topical BID 7 days clotrimazole-betamethasone 1-0.05 % 1 appl topical BID 7 days cyanocobalamin (vitamin B-12) 1,000 mcg PO DAILY cyclobenzaprine 5 mg PO BID PRN diclofenac sodium 1% (Voltaren Arthritis Pain) 4 grams topical QID docusate sodium (Colace) 100 mg PO DAILY epinephrine IM ferrous gluconate 324 mg PO 2XW fluconazole 150 mg PO ONCE 1 day fluconazole 150 mg PO DAILY 1 dose fluticasone propion-salmeterol 250-50 mcg/dose (Wixela Inhub) 1 inh inhalation BID 30 days fluticasone propionate 50 mcg/actuation 2 sprays intranasal DAILY meclizine 25 mg PO TID PRN menthol-zinc oxide 0.44-20.6 % (Calmoseptine) 1 appl topical QID PRN metronidazole 500 mg PO Q12H 7 days montelukast 10 mg PO DAILY olmesartan 20 mg PO DAILY PNV,calcium 36-vxmo-dbbxp acid 27 mg iron- 1 mg ( Vitamins Plus Low Iron) 1 tab PO DAILY promethazine 25 mg PO Q6H PRN propranolol ER 60 mg PO DAILY sennosides (senna) 8.6 mg PO BEDTIME sumatriptan succinate 50 mg PO PRN Tirosint (levothyroxine) 137 mcg PO DAILY NS topiramate 50 mg PO BID trazodone 100 mg PO BEDTIME PRN valacyclovir (Valtrex) 500 mg PO DAILY 30 days HPI Comments Details: 38-year-old female presents for follow-up of sleep difficulties following home sleep study. 12/06/2023 HST was inconclusive with AHI 0.2 per hour, average SpO2 96% with O2 tamia 86% and SpO2 under 88% for 0.1 minute. There were 10 snoring episodes with percentage of snoring 8.3%. Patient does state that she slept on 3 pillows during her HST is study. Patient reports she continues to have a sensation of inability to breathe or catch her breath when lying flat, when talking, when walking, when eating. States it feels as if something is blocking her airway. She typically sleeps on 3 pillows, which helps some. She does endorse chronic sinus issues, occasional postnasal drip, a few episodes of difficulty clearing her secretions-last being just a couple of days ago, occasionally swallowing the wrong way. She also endorses occasional acid reflux. She states she is compliant with her Advair inhaler and has her p.r.n. albuterol inhaler, however these have not helped. She has follow-up with professor of law on January 26. She denies usual hoarseness, voice change, sore throat, cough. 06/28/23, Initial HPI: 37-yr-old female presents for new in-person patient visit for sleep consultation. Pt reports she she has had difficulty sleeping for a few years. She has to sleep with her head elevated so that she does not wake up gasping. She is prone to SOB- if she lays flat or w/ exertion. She had a sleep study a few years ago- not sure of the results. She was never given a CPAP. Sleep questionnaire: Have you ever been diagnosed with a sleep disorder? Not sure Have you ever had a sleep study in the past? Yes- unsure of the results Have you ever been treated for a sleep disorder? NO Do you take medications for a sleep disorder? Pt states No. However she is prescribed a number of medications which are HEM MARKER depressants- amitriptyline, clonazepam. Do you snore? Yes Do you wake up gasping at night? At times Do you have episodes of apneas? Unsure If yes, are they witnessed? n/a Do you have episodes of nocturnal chest pain or dyspnea? SOB Do you have difficulty initiating sleep? Not as long as she waits until she is tired. Do you have difficulty maintaining sleep? Yes Do you wake up tired? Yes Do you have headaches upon awakening? Yes Do you wake up with dry mouth or throat? Lately, yes- Trying to drink more water. Do you have GERD? No Do you have daytime tiredness or fatigue? Yes Do you have nocturnal leg cramps? Not recently Do you have symptoms of restless legs? No Do you act out your dreams? May talk in her sleep Sleep hygiene questionnaire: What is your usual sleep routine? Usual bedtime is at 12am; Usual wakeup time is at 11am. If she goes to bed earlier, she wakes up after a few hrs and cannot go back to sleep- then she is tired, irritable and jsut wants to sleep. If she wakes up early for an appointment, she will want to go back to sleep after returning home. Do you take naps? Yes Is your sleep environment cool, dark, and quiet? Yes Do you exercise? Not much- walks to her mom's house w/ breaks. Do you take caffeine or other stimulants? No Do you use electronics in bed? Sometimes her phone. What is your work schedule? Not working. Hypersomnolence questionnaire: Do you easily fall asleep when inactive? Yes Have you ever had episodes of sudden weakness? No Have you ever had episodes of sudden weakness associated with strong emotions? No [facility] Medical History (Updated 01/17/24 @ 14:11 by ADDY Leung) Vulvar itching Abnormal urine odor Internal and external bleeding hemorrhoids Pruritus ani Migraine Anxiety B12 deficiency Vitamin D deficiency Obesity Postablative hypothyroidism Surgical History Hx of dilation and curettage Family History Father Cancer Mother Hypertension Diabetes High cholesterol CVD (cardiovascular disease) Social History Household Members Other:: daughter Housing: House Alcohol intake: never Patient Tobacco Use Status: Never used Tobacco Current occupational status: unemployed Sexual orientation: Straight/Heterosexual Gender identity: Female Physical Exam Vital Signs: Last Vital Signs Pulse 81 01/17/24 13:37 BP 122/70 01/17/24 13:37 Pulse Ox 98 01/17/24 13:37 Oxygen Delivery Method Room Air 01/17/24 13:37 BMI result Body Mass Index 39.7 Const General: no acute distress Orientation/consciousness: patient oriented x3 HEENT Other: Mallampati grade 3 Resp Effort & Inspection: able to speak in complete sentences Auscultation: clear to auscultation bilaterally Cardio Rate: regular rate Rhythm: regular rhythm Neuro General: patient oriented x3 Psych Mental Status: mental status grossly normal Speech and movement: Clear speech present Attitude: cooperative Assessment & Plan Assessment & Plan (1) Sleep difficulties: Code(s): G47.9 - Sleep disorder, unspecified Category: Medical (2) Excessive daytime sleepiness: Code(s): G47.19 - Other hypersomnia Category: Medical (3) Snoring: Code(s): R06.83 - Snoring Category: Medical (4) Dyspnea: Code(s): R06.00 - Dyspnea, unspecified Category: Medical (5) Acid reflux: Code(s): K21.9 - Gastro-esophageal reflux disease without esophagitis Category: Medical Plan Reviewed home sleep study results, inconclusive, no evidence of sleep apnea. However patient did sleep with her head elevated on 3 pillows throughout the home sleep study, and this may under estimate the severity of her sleep disordered breathing. Thus, patient is advised to undergo in-lab sleep study. Patient is advised to sleep flat during the sleep study, advised that the technicians will monitor her oxygen level in her airway. Follow-up with pulmonology as scheduled. We will request ENT consult to assess for non pulmonary etiologies of patients symptoms of difficulty breathing, difficulty eating, difficulties swallowing, Will follow-up upon review of above and patient to follow-up in clinic in 6 months or sooner prn. Orders: Orders RT PSG in-lab sleep study Today G47.19 - Other hypersomnia, G47.9 - Sleep disorder, unspecified, K21.9 - Gastro-esophageal reflux disease without esophagitis, R06.00 - Dyspnea, unspecified, R06.83 - Snoring Referrals Ear/Nose/Throat Referral J45.909 - Unspecified asthma, uncomplicated, R06.00 - Dyspnea, unspecified, R47.9 - Unspecified speech disturbances, R63.8 - Other symptoms and signs concerning food and fluid intake Coding Level of Care Code Est Pt Level 4 (23312) Diagnoses Sleep difficulties G47.9 Excessive daytime sleepiness G47.19 Snoring R06.83 Dyspnea R06.00 Acid reflux K21.9
[2024-01-17 13:37] VITALS: BP 122/70; PULSE 81; O2SAT 98; BMI 39.7
== END 2024-01-17 14:21 | disposition home or self-care (01) ==
PROVIDERS: PCP Student in an Organized Health Care Education/Training Program; Visit Provider Nurse Practitioner Family
DX: G47.9 Sleep disorder, unspecified (principal); G47.19 Other hypersomnia; R06.83 Snoring; R06.00 Dyspnea, unspecified; K21.9 Gastro-esophageal reflux disease without esophagitis
CPT/HCPCS: 99214

== ENCOUNTER → 2024-01-17 13:30 | Outpatient (BNVA) | payer MEDICAID, SELFPAY | PROVIDERS: PCP Student in an Organized Health Care Education/Training Program; Visit Provider Nurse Practitioner Family | DX: G47.19 Other hypersomnia (principal); G47.9 Sleep disorder, unspecified; R06.83 Snoring; R06.00 Dyspnea, unspecified; K21.9 Gastro-esophageal reflux disease without esophagitis | CPT/HCPCS: 99212 ==

== ENCOUNTER 2024-01-27 09:58 | Outpatient (REF) | payer MEDICAID, SELFPAY ==
--- NOTE | 2024-01-27 10:00 | PFT_ITS ---
Flows: FEV1: 119 % of predicted at 3.47 L FVC: 112 % of predicted at 3.98 L FEV1/FVC: 87 % Bronchodilator response: Present in small to medium airways only Volumes: Total lung capacity: 112 % of predicted at 5.66 L Residual volume: 126 % of predicted at 1.58 L Slow vital capacity: 107 % of predicted at 4.08 L Expiratory reserve volume: 143 % of predicted at 1.67 L Diffusion capacity: Normal Impression: No obstructive or restrictive ventilatory defect. Bronchodilator response is present in small to medium airways only. Increased residual volume suggests air trapping. MTDD
[2024-01-27 10:38] VITALS: PULSE 63; O2SAT 100
== END 2024-01-27 09:59 | disposition home or self-care (01) ==
LOC: HO.RESP 09:58
PROVIDERS: PCP Student in an Organized Health Care Education/Training Program; Visit Provider Student in an Organized Health Care Education/Training Program
DX: R06.00 Dyspnea, unspecified (principal)
CPT/HCPCS: 94010; 94640; 94727; 94729

== ENCOUNTER → 2024-01-27 10:00 | Outpatient (BNV) | payer MEDICAID, SELFPAY | PROVIDERS: PCP Student in an Organized Health Care Education/Training Program; Visit Provider Internal Medicine Pulmonary Disease | DX: R06.09 Other forms of dyspnea (principal) | CPT/HCPCS: 94060; 94727; 94729 ==

== ENCOUNTER 2024-01-27 10:54 | Outpatient (AMB) | payer MEDICAID, SELFPAY ==
--- NOTE | 2024-01-27 10:57 | A.OFFVIS_ITS ---
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 Doing well with process development chemist concerns: slightly irritated, itchy last night, feels she is getting a yeast infection, along with HSV outbreak treatment this week. She reports she has an upcoming appointment with the personalized living manager nurse to evaluate her thyroid. Usually has regular monthly menses, skipped December, LMP 01/10/24. UPT is negative. Currently is not sexually active. STI screening offered; she accepts, bloodwork UTD 12/2023. She tries to eat healthy and stays active with exercise. Denies family history of breast, ovarian or colon cancer. Last pap smear 2022, negative. Mammogram: 2023. [facility] Medical History (Updated 01/17/24 @ 14:11 by ADDY Leung) Vulvar itching Abnormal urine odor Internal and external bleeding hemorrhoids Pruritus ani Migraine Anxiety B12 deficiency Vitamin D deficiency Obesity Postablative hypothyroidism Surgical History Hx of dilation and curettage Family History Father Cancer Mother Hypertension Diabetes High cholesterol CVD (cardiovascular disease) Social History Household Members Other:: daughter Housing: House Alcohol intake: never Patient Tobacco Use Status: Never used Tobacco Current occupational status: unemployed Sexual orientation: Straight/Heterosexual Gender identity: Female Female Reproductive History Menstrual Total pregnancies: 4 Full term: 1 Number of Living Children: 1 Ab induced: 2 Ab spontaneous: 1 Date of last pap smear: 01/12/23 (neg pap and hpv) Date of Mammogram: 02/10/23 (Birad 1) Review of Systems Const All systems reviewed & are unremarkable except as noted in HPI and below Reports as per HPI Eyes Reports no additional complaints ENT Reports no additional complaints Card Reports no additional complaints Resp Reports no additional complaints GI Reports as per HPI and Reports no additional complaints Reports as per HPI Musc Reports no additional complaints Skin/Breast Reports as per HPI Neuro Reports no additional complaints Psych Reports no additional complaints Endo Reports no additional complaints Trent/Lymph Reports no additional complaints Aller/Immun Reports no additional complaints Physical Exam Vital Signs: Last Vital Signs BP 116/70 01/27/24 10:58 BMI result Body Mass Index 39.7 Const General: cooperative, healthy appearing, no acute distress, well developed and alert Orientation/consciousness: patient oriented x3 HEENT Head: Yes normal to inspection Eyes General: appearance normal, both eyes and all related structures Neck Neck: Yes normal visual inspection Thyroid: Thyroid normal Chest Chest palpation & inspection: normal inspection of the chest and other (no puckering, dimpling, peau de orange, retraction, discharge, masses) Breast/axilla inspection: normal inspection of the breasts Breast/axilla palpation: normal palpation of the breasts Resp Effort & Inspection: normal respiratory effort GI Inspection: Yes normal to inspection Palpation (GI): Soft to palpation Rectal Exam - Female: deferred General: Yes bladder normal to palpation External Female Exam: normal external appearance and normal appearance of the urethra Speculum Exam - Vagina: normal appearance of the vagina, normal palpation and abnormal vaginal discharge (White thick adherence) Speculum Exam - Cervix: normal appearance of the cervix and normal palpation Bimanual exam- vagina & uterus: normal bimanual exam, normal palpation, uterine size normal, bladder normal to palpation, normal palpation and non-tender Bimanual Exam- Adnexa, other: no masses Skin General skin exam: no rashes or lesions noted Rashes: no rashes Neuro General: patient oriented x3 Cognition (Neuro): normal cognition Extrem General: Yes normal to inspection Psych Attitude: cooperative Thought process: Normal thought process present Results AMB Urinalysis, Automated UA Leukoctes 2 Hallie/uL Last Edit by KOURTNEY Paniagua on 01/27/24 11:10 UA Nitrite Negative Last Edit by KOURTNEY Paniagua on 01/27/24 11:10 UA Urobilinogen 0 mg/dL Last Edit by KOURTNEY Paniagua on 01/27/24 11:1 0 UA Protein 0 mg/dL Last Edit by KOURTNEY Paniagua on 01/27/24 11:10 UA pH 6.5 Last Edit by DasiaKOURTNEY Lopez on 01/27/24 11:10 UA Blood 0 Jose Luis/uL Last Edit by Dasiaji Munguia Sergio on 01/27/24 11:10 UA Specific [place] 1.010 Last Edit by Dasia Nai Munguia Sergio on 01/27/24 11:10 UA Ketone Negative Last Edit by Dasia Nai Munguia Sergio on 01/27/24 11:10 UA Bilirubin 0 mg/dL Last Edit by Dasiaji Munguia [facility] on 01/27/24 11:10 UA Glucose 0 mg/dL Last Edit by Dasiaji Munguia Sergio on 01/27/24 11:10 AMB Test Urine AMB Test Urine Negative Last Edit by Dasia Nai Munguia Sergio on 01/27/24 11:31 Results Reviewed Results Reviewed: Laboratory Last Values Urine pH (Auto) 6.5 01/27/24 11:09 Specific [place] (Auto) 1.010 01/27/24 11:09 Urine Protein (Auto) 0 mg/dL 01/27/24 11:09 Glucose (UA)(Auto) 0 mg/dL 01/27/24 11:09 Urine Ketones (Auto) Negative 01/27/24 11:09 Urine Blood (Auto) 0 Jose Luis/uL 01/27/24 11:09 Urine Nitrite (Auto) Negative 01/27/24 11:09 Urine Bilirubin (Auto) 0 mg/dL 01/27/24 11:09 Urine Urobilinogen (Auto) 0 mg/dL 01/27/24 11:09 Leukocyte Esterase (Auto) 2 Hallie/uL 01/27/24 11:09 Assessment & Plan Assessment & Plan (1) Encounter for annual routine gynecological examination: Code(s): Z01.419 - Encounter for gynecological examination (general) (routine) without abnormal findings Category: Medical Plan Discussed: Current recommendations for pap smears per ASCCP guidelines. Breast awareness and periodic breast exams. Mammogram yearly. Maintain a healthy lifestyle including a well balanced diet and routine exercise. Use condoms for STI and prevention. Consult for control if indicated in the future. Use of medications in contraindications with the use of Diflucan. GC chlamydia and BV panel obtained-await results for plan of care initiate treatment for yeast due to symptoms today. Thyroids affect on the menstrual cycle, importance of keeping endocrinology follow up. Monitoring the menses if heavier prolonged or less than 3 weeks apart to report back to the office for sooner evaluation. Some discrepancy on use of meds advised in the future to bring a list of meds from her providers and also from the pharmacy to print out her list so that we can update it accurately when she comes in yearly. Patient verbalizes understanding and agrees to the plan of care. She was given opportunity to ask questions and all questions were answered to the best of my ability. RTO in one year for annual process development chemist examination. This note is constructed using voice recognition software. While every effort has been made to ensure accuracy, substitute school nurse errors may have been included. Orders: Orders AMB Urinalysis Automated Today N89.8 - Other specified noninflammatory disorders of vagina Bacterial Vaginosis Panel Today N89.8 - Other specified noninflammatory disorders of vagina CT NG by PCR Today N89.8 - Other specified noninflammatory disorders of vagina AMB HCG Urine Test Today N93.9 - Abnormal uterine and vaginal bleeding, unspecified Medications: New fluconazole 150 mg PO ONCE 1 day 1 tab 0RF personal Changed From valacyclovir (Valtrex) 500 mg PO DAILY 30 days 30 tabs 1RF To valacyclovir (Valtrex) 500 mg PO DAILY 90 days 90 tabs 1RF Refilled acyclovir 5% 1 appl topical 6XD 7 days 30 grams 2RF clotrimazole-betamethasone 1-0.05 % apply externally a thin coat to the area 1 appl topical BID 7 days 45 grams 1RF itching Discontinued promethazine Discontinued Reason: No Longer Medically Relevant 25 mg PO Q6H PRN 10 tabs 0RF Nausea, vomiting, headache jyjhbgomqz-giqahpzfagdyl-ebdb 50-300-40 mg (Fioricet) Discontinued Reason: No Longer Medically Relevant 1 cap PO Q6H PRN 14 caps 0RF headache cyclobenzaprine Discontinued Reason: No Longer Medically Relevant 5 mg PO BID PRN 60 tabs 0RF muscle spasm M47.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
[2024-01-27 10:58] VITALS: BP 116/70; BMI 39.7
== END 2024-01-27 11:42 | disposition home or self-care (01) ==
PROVIDERS: PCP Student in an Organized Health Care Education/Training Program; Visit Provider Advanced Practice Midwife
DX: Z01.419 Encounter for gynecological examination (general) (routine) without abnormal findings (principal); N93.9 Abnormal uterine and vaginal bleeding, unspecified; N89.8 Other specified noninflammatory disorders of vagina
CPT/HCPCS: 99396

== ENCOUNTER 2024-01-27 11:28 | Outpatient (REF) | payer MEDICAID, SELFPAY | END 2024-01-27 11:29 | disposition home or self-care (01) | LOC: HO.LNP 11:28 | PROVIDERS: Visit Provider Advanced Practice Midwife | DX: Z13.89 Encounter for screening for other disorder (principal) ==

== ENCOUNTER 2024-01-27 11:28 | Outpatient (REF) | payer MEDICAID, SELFPAY ==
[2024-01-27 16:57] LABS: Bacterial Vaginosis PCR POSITIVE (Negative); Candida Group PCR NOT DETECTED (Not Detect); Candida glab krusei PCR NOT DETECTED (Not Detect); Trichomonas vaginalis PCR NOT DETECTED (Not Detect)
[2024-01-27 17:29] LABS: CT PCR NOT DETECTED (Not Detect.); NG PCR NOT DETECTED (Not Detect.)
== END 2024-01-27 11:29 | disposition home or self-care (01) ==
LOC: HO.LAB 11:28
PROVIDERS: Visit Provider Advanced Practice Midwife
DX: N89.8 Other specified noninflammatory disorders of vagina (principal)
CPT/HCPCS: 0352U; 87491; 87591

== ENCOUNTER → 2024-02-04 19:30 | Outpatient (REF) | payer MEDICAID, SELFPAY | LOC: HO.SL 19:30 | PROVIDERS: PCP Student in an Organized Health Care Education/Training Program; Visit Provider Nurse Practitioner Family | DX: G47.9 Sleep disorder, unspecified (principal); G47.19 Other hypersomnia; R06.83 Snoring; R06.00 Dyspnea, unspecified; K21.9 Gastro-esophageal reflux disease without esophagitis | CPT/HCPCS: 95810 ==

== ENCOUNTER → 2024-02-04 23:45 | Outpatient (BNV) | payer MEDICAID, SELFPAY | PROVIDERS: PCP Student in an Organized Health Care Education/Training Program; Visit Provider Psychiatry & Neurology Neurology | DX: R06.83 Snoring (principal) | CPT/HCPCS: 95810 ==

== ENCOUNTER 2024-03-30 11:47 | Outpatient (AMB) | payer MEDICAID, SELFPAY ==
--- NOTE | 2024-03-30 11:49 | A.OFFVIS_ITS ---
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 She was last seen in our office last February 2023. Denies any recent trauma, injury or falls. Patient reports difficulty with overhead reaches and significant muscle spasms with muscle taut bands in her right upper and lower trapezius, rhomboids and cervical paraspinal muscles, right worse than left. She has received TENS unit last year and has been utilizing with partial relief. Patient denies any neck or left shoulder pain. She continues daily home exercise program from previously learned exercises at PT, Tylenol and NSAIDs with minimal improvement in her symptoms. Pain increases with daily activities and house chores. She is currently unemployed. Denies any recent cough, cold, infection, fever or any other significant changes in medical history since last office visit. PRIOR: Patient is a pleasant 37 years old female presents today for initial evaluation of chronic neck and bilateral shoulder pain. Right hand dominant. Reports remote mechanical fall injury in 2008 when she was moving out from her apartment due to another unit and fell backwards on her back. She reports loosing consciousness at the time of her fall and was brought by ambulance to [facility] [place] evaluation and was admitted for 3 days. She states she had a neck metal collar for one week and this was changed to soft plastic neck collar for 6 months. Denies spine surgery or injections. Reports weakness and numbness of LUE with lifting, pulling or carrying a purse or bag. Significant tenderness left upper trapezius. EMG study on 09/16/22 was normal for left upper extremity. Today she presents with neck pain with all movements, especially with cervical extension, left-sided rotation or bending. She reports dizziness when looking down however this was not reproduced today. Patient also has bilateral shoulder pain, minimal pain on the right shoulder and significant pain in the left shoulder is overhead reaches or backside pocket reaches. She reports completing several courses of physical therapy which have worsened her symptoms and prompted her to discontinue therapy. Last cervical spine MRI was done in 2009 at [facility], this report is not available today. Pain is constant and is rated at 8/10 today, 10/10 worse pain and 5/10 least pain. Patient denies any fever, chills, chest pain, headache, shortness of breath, gait imbalances, weakness, bladder or bowel dysfunction or saddle anesthesia. Location Bilateral shoulder pain, neck, radiates to lower back Duration Chronic pain since 2008 due to fall injury Characteristics of symptom or complaint Aching, throbbing, pulsing, burning, spasming , numbness (left neck) Aggravating or associated factors Lifting/carrying, movements, cold weather changes Relieving factors Lidocaine patches, topical cream, heat therapy, massage, Flexeril Treatment PT- 2009, [phone], EMG 09/30-normal [facility] Medical History Vulvar itching Abnormal urine odor Internal and external bleeding hemorrhoids Pruritus ani Migraine Anxiety B12 deficiency Vitamin D deficiency Obesity Postablative hypothyroidism Surgical History Hx of dilation and curettage Family History Father Cancer Mother Hypertension Diabetes High cholesterol CVD (cardiovascular disease) Social History Household Members Other:: daughter Housing: House Alcohol intake: never Patient Tobacco Use Status: Never used Tobacco Current occupational status: unemployed Sexual orientation: Straight/Heterosexual Gender identity: Female Review of Systems Const All systems reviewed & are unremarkable except as noted in HPI and below Physical Exam General: Appears afebrile. Alert and oriented. Mood and affect appropriate. Follows and participates in conversation appropriately. Respiratory effort is unlabored. No cough. Able to transition from sit to stand unassisted. Ambulates with bilaterally normal heel strike and toe off. Neck Other: Patient with decreased cervical ROM in with right lateral rotation and bending. 5/5 right and 4/5 left motor strength of bilateral upper extremities. 2 + radial pulses. Significant tightness throughout upper trapezius as well as TTP throughout bilateral upper trapezius muscles. No paravertebral tenderness over facet joints bilaterally. Multiple taut bands palpated throughout bilateral upper trapezius muscles. Neck: Yes full ROM, Yes no lymphadenopathy, Yes supple, No anterior neck swelling, Yes no JVD and Yes prominent dorsocervical fat pad Back/Spine/Pelvis Cervical Spine: loss of normal cervical lordosis, cervical muscular tenderness, cervical spasm and No Cervical spine tenderness Thoracic/Lumbar Spine: thoracic and lumbar spine normal to inspection, No Thoracic/lumbar spine scar(s), thoraco-lumbar ROM normal, paraspinal muscle tenderness, No thoracic spinal tenderness and No lumbar spinal tenderness Extrem General: Yes capillary refill normal, Yes no clubbing, cyanosis or edema and Yes no calf tenderness Right upper extremity: shoulder/upper arm (Difficulty with overhead reaches due to pain) Details: normal to inspection, tenderness Location: of the scapula and over the subacromial bursa and normal ROM; no swelling, no ecchymosis, no crepitus and no unusual warmth Results Reviewed Results Reviewed: 09/16/22 XR CERVICAL SPINE 01/05/23 CLINICAL INFORMATION: Pain. COMPARISON: CT cervical spine dated 12/03/2010. TECHNIQUE: Frontal, odontoid, bilateral oblique and lateral views of the cervical spine are obtained. FINDINGS: Vertebral body heights are normal. At C5-C6, there is moderate disc space narrowing, with a 2 mm anterolisthesis. The remaining disc spaces are well-maintained. No acute fracture or spondylolisthesis is seen. There is mild anterior spondylosis extending from C3-C4 through C5-C6. The posterior elements are intact. The bilateral neural foramina appear patent. There is no prevertebral soft tissue swelling. The dens and C7-T1 interface are normal. IMPRESSION: 1. There is moderate degenerative disease at C5-C6. 2. No acute fracture or spondylolisthesis is seen. 3. There is mild anterior spondylosis extending from C3-C4 through C5-C6. XR SHOULDER, LEFT 01/05/23 CLINICAL INFORMATION: Pain. COMPARISON: None available. TECHNIQUE: AP external rotation, Grashey, scapular Y, and axillary views of the left shoulder. FINDINGS: The bones and soft tissues are normal. No fracture. Glenohumeral and acromioclavicular alignment is anatomic with normal joint space. No abnormal soft tissue calcifications. IMPRESSION: Normal left shoulder. Assessment & Plan Assessment & Plan (1) Muscle spasms of neck: Code(s): M62.838 - Other muscle spasm Category: Medical (2) Cervical spondylosis: Code(s): M47.812 - Spondylosis without myelopathy or radiculopathy, cervical region Category: Medical (3) Right shoulder pain: Code(s): M25.511 - Pain in right shoulder Category: Medical Plan Continue home exercise program, TENS unit, gentle neck stretching exercises, good posture, weight loss and adequate daily hydration. Discussed interventional treatments for right shoulder pain. Will obtain right shoulder xray to assess for degree of arthritis. Acupuncture Referral at [facility] for myofascial neck and shoulder pain with muscle spasms and taut bands. If no improvement, will consider trigger point injections. Script provided for cyclobenzaprine which has been beneficial to patient in the past. Side effects and precautions were discussed with patient. All questions were answered and the patient is in agreement of plan. Follow-up for xray results and sooner as needed. Orders: Orders 2 XR shoulder RT min 2V Today M25.511 - Pain in right shoulder Referrals 2 Acupuncture Referral M25.511 - Pain in right shoulder, M25.512 - Pain in left shoulder, M47.812 - Spondylosis without myelopathy or radiculopathy, cervical region, M62.838 - Other muscle spasm Medications: New 2 cyclobenzaprine 5 mg PO BID 30 days PRN 60 tabs 1RF muscle spasm M25.511 - Pain in right shoulder, M25.512 - Pain in left shoulder, M47.812 - Spondylosis without myelopathy or radiculopathy, cervical region, M62.838 - Other muscle spasm Coding Level of Care Code Est Pt Level 4 (11867) Complex EM visit Add On G2211 Diagnoses Muscle spasms of neck M62.838 Cervical spondylosis M47.812 Right shoulder pain M25.511
[2024-03-30 11:53] VITALS: BP 131/74; PULSE 72; O2SAT 98; BMI 39.9
--- OUTSIDE RECORDS SUMMARY | 2024-03-30 13:01 | XMS_ITS | Continuity of Care Document ---
Author Organization [place] - [facility], Allergy Address [address] [place] [id number] Assessment Encounter Date Assessment Date Assessment LastModified by Organization Details LastModified Time 03/10/2024 03/10/2024 Visit With: Chasidy Olivier RN Use of Antihistamine s: No If yes: Vial Test Change in medications: No If yes ? ? ? Increase in asthma symptoms No Asthma Hx If yes, inhaler use: Reaction to last injections: No If yes: ? ? ? Allergy Symptoms: Other: ? ? ? Missed: Dose Aware of Vial Test Notes:? ? ? [email or web address] Not available 03/10/2024 12:05:21 Plan of Treatment Reminders Order Date Submit Date Provider Last Modified By Organization Details Last Modified Time Details Appointments [facility]- Allergy f-up 6mon 2024 11:00A M SANDOR HENLEY MD Not available Not available Not available Lab None recorded . Referral None recorded . Procedures None recorded . Surgeries None recorded . Imaging None recorded . Medication Orders None recorded . Patient TargetsNo targets recorded. Patient InstructionsNo instructions recorded. Reason for Referral None Reported. Problems Name Problem SNOMED Code Status Onset Date Resolution Date Notes Provider Name and Address Organization Details Recorded Time Acute sinusitis 40182294 Active 2020 Acute sinusitis , unspecifi ed; Note: Date Diagnosed : 05/10/2020 3:30 PM (J01.90) Not Available [facility] 03:13:59 Deviated nasal septum 703627274 Active 2018 Deviated nasal septum; Note: Date Diagnosed : 07/05/2018 11:43 AM (J34.2) Not Available [facility] 4 03:13:58 Chronic rhinitis 57166864 Active 2020 Chronic rhinitis; Note: Date Diagnosed : 01/09/2021 3:05 PM (J31.0) Not Available [facility] 4 03:13:58 Headache 46029409 Active 2019 Facial pain NOS; Note: Date Diagnosed : 02/10/2019 1:37 PM (R51) Not Available [facility] 4 03:13:58 Nasal congestio n 88809934 Active 2018 Nasal congestio n; Note: Date Diagnosed : 07/05/2018 11:43 AM (R09.81) Not Available [facility] 4 03:13:58 Polyp of nasal cavity 299733421 Active 2021 Polyp of nasal cavity; Note: Date Diagnosed : 03/13/2021 11:28 AM (J33.0) Not Available [facility] 4 03:13:57 Allergic rhinitis 67847157 Active 2023 Allergic rhinitis: Due to other allergen; Note: Date Diagnosed : 02/12/2023 11:57 AM (477.8) Note: Date Diagnosed : 02/12/2023 11:57 AM (477.8) Allergi c rhinitis: Due to other allergen; Note: Date Diagnosed : 3 9:27 AM (477.8) Note: Date Diagnosed : 3 9:27 AM (477.8) ; Start Date : Allergi c rhinitis: Due to other allergen; Note: Date Diagnosed : 3 10:29 AM (477.8) Note: Date Diagnosed : 3 10:29 AM (477.8) ; Start Date : Allergi c rhinitis: Due to other allergen; Note: Date Diagnosed : 3 1:13 PM (477.8) Note: Date Diagnosed : 3 1:13 PM (477.8) ; Start Date : Allergi c rhinitis: Due to other allergen; Note: Date Diagnosed : 11:59 AM (477.8) Note: Date Diagnosed : 11:59 AM (477.8) ; Start Date : Allergi c rhinitis: Due to other allergen; Note: Date Diagnosed : 1:41 PM (477.8) Note: Date Diagnosed : 1:41 PM (477.8) ; Start Date : Allergi c rhinitis: Due to other allergen; Note: Date Diagnosed : 2:21 PM (477.8) Note: Date Diagnosed : 2:21 PM (477.8) ; Start Date : Allergi c rhinitis: Due to other allergen; Note: Date Diagnosed : 2:00 PM (477.8) Note: Date Diagnosed : 2:00 PM (477.8) ; Start Date : Allergi c rhinitis: Due to other allergen; Note: Date Diagnosed : 11/06/2022 11:43 AM (477.8) Note: Date Diagnosed : 11/06/2022 11:43 AM (477.8) ; Start Date : Allergi c rhinitis: Due to other allergen; Note: Date Diagnosed : 10/30/2022 1:33 PM (477.8) Note: Date Diagnosed : 10/30/2022 1:33 PM (477.8) ; Start Date : Allergi c rhinitis: Due to other allergen; Note: Date Diagnosed : 10/23/2022 11:49 AM (477.8) Note: Date Diagnosed : 10/23/2022 11:49 AM (477.8) ; Start Date : Allergi c rhinitis: Due to other allergen; Note: Date Diagnosed : 10/05/2022 3:42 PM (477.8) Note: Date Diagnosed : 10/05/2022 3:42 PM (477.8) ; Start Date : Allergi c rhinitis: Due to other allergen; Note: Date Diagnosed : 08/12/2022 1:52 PM (477.8) Note: Date Diagnosed : 08/12/2022 1:52 PM (477.8) ; Start Date : 3 Allergi c rhinitis: Due to other allergen; Note: Date Diagnosed : 03/31/2019 1:19 PM (477.8) Note: Date Diagnosed : 03/31/2019 1:19 PM (477.8) ; Start Date : 0 Perenni al allergic rhinitis; Note: Changed from J30.89 to J30.89 ( 0 12:00 PM) , Date Diagnosed : 07/05/2018 11:43 AM (J30.89) Note: Changed from J30.89 to J30.89 ( 0 12:00 PM) , Date Diagnosed : 07/05/2018 11:43 AM (J30.89) ; Start Date : 9 Not Available [facility] 4 01:24:27 Otalgia of right ear 3073817125 Active 2019 Otalgia, right ear; Note: Date Diagnosed : 12/11/2019 2:59 PM (H92.01) Not Available [facility] 4 03:13:59 Perennial allergic rhinitis 210419268 Active 2023 [address]O [address], [address] , [facility] 4 11:04:09 Impacted cerumen in right ear [id number] 46232 Active 2023 ORVILLE PURCELL MD [address] [place] [address], [place], [address] , [facility] 4 11:08:25 Problem Notes None recorded. Procedures Surgical History Date Name Laterality Status Provider Name and Address Organization Details Recorded Time 03/23/19 25 Allergy Immunotherapy Injections completed [facility] [address] [facility],[address], [phone], [facility] 03/23/2024 15:32:40 03/10/19 25 Allergy Immunotherapy Injections completed CHASIDY OLIVIER RN [address], [place], [address], [place] [facility] 03/10/2024 12:05:52 03/02/19 25 Allergy Immunotherapy Injections completed KOURTNEY MANCINI [address], [place], [address], [place] [facility] 03/02/2024 12:02:23 02/23/19 25 Allergy Immunotherapy Injections completed VICTORIANO MANCINIA [address], [place], [address], [place] [facility] 02/24/2024 11:30:40 02/14/19 25 Allergy Immunotherapy Injections completed BABS DUNCAN RMA [address], [place], [address], [place] [facility] 02/15/2024 11:08:53 02/09/19 25 Allergy Immunotherapy Injections completed BABS DUNCAN RMA [address] [place] [address], [address], [place] [facility] 02/10/2024 14:28:06 01/27/20 24 Allergy Immunotherapy Injections completed CHASIDY OLIVIER RN [address] [place] [address], [address], [place] [facility] 01/27/2024 09:07:49 01/20/20 24 Allergy Immunotherapy Injections completed KOURTNEY MANCINI [address], [place], [address], [place] [facility] 01/20/2024 13:36:07 01/13/20 24 Allergy Immunotherapy Injections completed BABS DUNCAN RMA [address], [place], [address], [place] [facility] 01/13/2024 14:30:51 01/05/20 24 Allergy Immunotherapy Injections completed BABS DUNCAN RMA [address], [place], [address], [place] [facility] 01/05/2024 13:22:16 12/30/19 24 Allergy Immunotherapy Injections completed KOURTNEY MANCINI [address], [place], [address], [place] [facility] 12/30/2023 12:06:22 12/23/19 24 Allergy Immunotherapy Injections completed KOURTNEY COELLO [address], [place], [address], [place] [facility] 12/23/2023 11:41:23 12/16/19 24 Allergy Immunotherapy Injections completed KOURTNEY MANCINI [address], [place], [address], [place] [facility] 12/16/2023 11:21:05 12/09/19 24 Allergy Immunotherapy Injections completed [facility]ABS [facility],[address] [place] [address], [address], [place] [facility] 12/09/2023 11:41:30 11/30/19 24 Allergy Immunotherapy Injections completed CHASIDY OLIVIER RN [address] [facility],[address] [place] [address], [address], [place] [facility] 11/30/2023 11:29:17 11/25/19 24 Allergy Immunotherapy Injections completed BABS DUNCAN RMA [address] [place] [address], [address], [place] [facility] 11/25/2023 11:41:02 11/18/19 24 Allergy Immunotherapy Injections completed KOURTNEY MANCINI [address] [facility],[address] [place] [address], [address], [place] [facility] 11/18/2023 11:51:54 11/11/19 24 Allergy Immunotherapy Injections completed CHASIDY OLIVIER RN [address] [place] [address], [phone], [place] [facility] 11/11/2023 09:15:07 11/05/19 24 Allergy Immunotherapy Injections completed KOURTNEY MANCINI [address], [place], [address], [place] [facility] 11/05/2023 12:14:13 10/28/19 24 Allergy Immunotherapy Injections completed BABS DUNCAN, RMA [address], [place], [address], [place] [facility] 10/28/2023 14:45:57 10/21/19 24 Allergy Immunotherapy Injections completed VICTORIANO MANCINIA [address], [place], [address], [place] [facility] 10/21/2023 11:41:17 10/08/19 24 Allergy Immunotherapy Injections completed BABS DUNCAN, RMA [address], [place], [address], [place] [facility] 10/08/2023 11:33:35 10/01/19 24 Allergy Immunotherapy Injections completed LEANNA ACEVEDO RMA [address], [place], [address], [place] [facility] 10/01/2023 10:32:59 09/23/19 24 Allergy Immunotherapy Injections completed LEANNA ACEVEDO RMA [address], [place], [address], [place] [facility] 09/23/2023 13:46:52 09/16/19 24 Allergy Immunotherapy Injections completed BABS DUNCAN RMA [address], [place], [address], [place] [facility] 09/16/2023 14:07:22 09/09/19 24 Allergy Immunotherapy Injections completed CHASIDY OLIVIER RN [address], [place], [address], [place] [facility] 09/09/2023 12:03:04 09/02/19 24 Allergy Immunotherapy Injections completed BABS DUNCAN, RMA [address], [place], [address], [place] [facility] 09/02/2023 11:46:51 08/26/19 24 Allergy Immunotherapy Injections completed BABS [facility], RMA [address], [place], [address], [place] [facility] 08/26/2023 13:11:56 08/19/19 24 Allergy Immunotherapy Injections completed CHASIDY OLIVIER RN [address] [facility], [place], [address], [facility] 08/19/2023 14:02:06 08/10/19 24 Allergy Immunotherapy Injections completed BABS DUNCAN RMA [address], [place], [address], [place] [facility] 08/10/2023 15:12:45 08/04/19 24 Allergy Immunotherapy Injections completed BABS DUNCAN RMA [address], [place], [address], [place] [facility] 08/04/2023 12:15:15 08/04/19 24 Cerumen removal without microscope completed ORVILLE PURCELL MD [address] [place] [address], [address], [facility] 08/04/2023 11:08:52 07/28/19 24 Allergy Immunotherapy Injections completed KOURTNEY MANCINI [address] [place] [address], [phone], [facility] 07/28/2023 15:01:20 07/20/19 24 Allergy Immunotherapy Injections completed BABS DUNCAN RMA [address] [place] [address], [address], [facility] 07/20/2023 14:23:42 07/13/19 24 Allergy Immunotherapy Injections completed KOURTNEY MANCINI [address] [facility],[address] [place] [address], [phone], [facility] 07/13/2023 13:59:55 07/06/19 24 Allergy Immunotherapy Injections completed KOURTNEY MANCINI [address] [facility],[address] [place] [address], [address], [facility] 07/06/2023 12:17:36 06/29/19 24 Allergy Immunotherapy Injections completed KOURTNEY MANCINI [address], [place], [address], [place] [facility] 06/29/2023 11:04:40 Imaging Results None recorded. Procedure Notes None recorded. Medical Equipment None Reported. Medications Name Sig Start Date Stop Date Status Note LastModified by Organization Details LastModified Time prednison e 10 mg tablet Take as directed 2022 active Medicati on ID: [id number] D uration Value: 12 Brand Name: predniso ne Send Method: E-Prescr ibed Sub s Allowed: subs OK Speci al Instruct ion: Take 4 tabs daily for 3 days then 3 tabs daily for 3 days then 2 tabs daily for 3 days then 1 tab daily for 3 days then stop Med icationG enericNa me: predniso ne Not Available Not Available Not Available ketoconaz ole 2 % shampoo 2021 active Medicati on ID: [id number] B rand Name: ketocona zole Sen d Method: E-Prescr ibed Sub s Allowed: subs OK Speci al Instruct ion: APPLY TO HAIR, LEAVE FOR 5 MINUTES THEN RINSE DIRECTED . USE 2-3 TIMES EVERY WEEK. Me dication GenericN lissette: ketocona zole Not Available Not Available Not Available trazodone 50 mg tablet TAKE 1 TABLET BY MOUTH AT BEDTIME active Not Available Not Available No t Available cetirizin e 10 mg tablet TAKE 1 TABLET BY MOUTH EVERY DAY NEEDED FOR ALLERGIE S active Not Available Not Available No t Available ibuprofen 800 mg tablet TAKE 1 TABLET BY MOUTH EVERY DAY NEEDED FOR MODERATE PAIN active Not Available Not Available No t Available fluconazo le 150 mg tablet TAKE 1 TABLET BY MOUTH ONCE active Not Available Not Available No t Available ketotifen 0.025 % (0.035 %) eye drops 06/16 completed Medicati on ID: [id number] B rand Name: ketotife n fumarate Send Method: E-Prescr ibed Sub s Allowed: subs OK Speci al Instruct ion: PLACE 1 DROP INTO THE AFFECTED EYE(S) TWICE DAILY Me dication GenericN lissette: ketotife n fumarate Not Available Not Available Not Available metronida zole 0.75 % (37.5 mg/5 gram) vaginal gel INSERT 1 APPLICAT ORFUL VAGINALL Y AT BEDTIME FOR 5 NIGHTS active Not Available Not Available No t Available prednison e 20 mg tablet TAKE 2 TABLETS BY MOUTH EVERY MORNING FOR 5 DAYS active Not Available Not Available No t Available clonazepa m 0.5 mg tablet TAKE 1 TABLET EVERY TWELVE HOURS active Not Available Not Available No t Available cromolyn 4 % eye drops 2021 active Medicati on ID: [id number] B rand Name: kassilyn Send Method: E-Prescr ibed Sub s Allowed: subs OK Speci al Instruct ion: INSTILL 1 DROP 4 TIMES A DAY INTO AFFECTED EYE NEEDED M diony Chuaeneric Name: cromolyn Not Available Not Available Not Available sumatript an 50 mg tablet TAKE 1 TABLET AT LEAST 4 HOURS BETWEEN DOSES NEEDED UP TO 2X/24H ORALLY 2 DOSES/24 HR 30 DAYS active Not Available Not Available No t Available cyanocoba santy (vit B-12) 1,000 mcg tablet TAKE 1 TABLET BY MOUTH ONCE DAILY active Not Available Not Available No t Available metronida zole 500 mg tablet TAKE 1 TABLET BY MOUTH TWICE DAILY FOR 7 DAYS. AVOID ALCOHOLI C BEVERAGE S WHILE TAKING. active Not Available Not Available No t Available valacyclo vir 500 mg tablet TAKE 1 TABLET BY MOUTH EVERY DAY active Not Available Not Available No t Available acetamino phen 500 mg tablet TAKE 2 TABLETS BY MOUTH EVERY 8 HOURS NEEDED FOR MILD PAIN active Not Available Not Available No t Available propranol ol 10 mg tablet TAKE 1 TABLET BY MOUTH TWICE DAILY active Not Available Not Available No t Available ofloxacin 0.3 % ear drops Apply 4 drop into right ear twice a day 2021 active Medicati on ID: [id number] D uration Value: 7 Brand Name: ofloxaci n Send Method: E-Prescr ibed Sub s Allowed: subs OK Speci al Instruct ion: x 7 days Med icationG enericNa me: ofloxaci n Not Available Not Available Not Available Deep Sea Nasal 0.65 % spray aerosol INSTILL 1 SPRAY IN EACH NOSTRIL ONCE DAILY NEEDED FOR CONGESTI ON active Not Available Not Available No t Available amitripty line 25 mg tablet TAKE 2 TABLETS BY MOUTH AT BEDTIME active Not Available Not Available No t Available lorazepam 0.5 mg tablet 03/13 completed Medicati on ID: [id number] D uration Value: 15 Brand Name: lorazepa m Send Method: E-Prescr ibed Sub s Allowed: subs OK Speci al Instruct ion: TAKE 1 TABLET TWICE DAILY NEEDED M petertio nGeneric Name: lorazepa m Not Available Not Available Not Available cyanocoba santy (vit B-12) 500 mcg tablet 06/16 completed Medicati on ID: [id number] B rand Name: cyanocob alamin (vitamin B-12) Se nd Method: E-Prescr ibed Sub s Allowed: subs OK Speci al Instruct ion: TAKE 1 TABLET BY MOUTH EVERY DAY Medi cationGe nericNam e: cyanocob alamin (vitamin B-12) Not Available Not Available Not Available trazodone 100 mg tablet TAKE 1 TABLET BY MOUTH EVERY DAY AT BEDTIME NEEDED FOR 30 DAYS active Not Available Not Available No t Available meclizine 25 mg tablet TAKE 1 TABLET BY MOUTH THREE TIMES DAILY IN THE MORNING, AT NOON, AND AT BEDTIME NEEDED FOR DIZZINES S active Not Available Not Available No t Available benzonata te 100 mg capsule TAKE 1 CAPSULE BY MOUTH THREE TIMES DAILY IN THE MORNING, AT NOON, AND AT BEDTIME NEEDED FOR COUGH FOR UP TO 7 DAYS. DO NOT BREAK, CRUSH, DISSOLVE OR CHEW. active Not Available Not Available No t Available acyclovir 5 % topical ointment APPLY TOPICALL Y SIX TIMES DAILY FOR 7 DAYS active Not Available Not Available No t Available clotrimaz ole-betam ethasone 1 %-0.05 % topical cream APPLY A THIN LAYER TOPICALL Y TWICE DAILY FOR ITCHING FOR 7 DAYS active Not Available Not Available No t Available triamcino lone acetonide 55 mcg nasal spray aerosol 06/16 completed Medicati on ID: [id number] B rand Name: triamcin olone acetonid e Send Method: E-Prescr ibed Sub s Allowed: subs KALIE Askew al Instruct ion: TAKE 2 SPRAYS INTO EACH NOSTRIL EVERY DAY Medi cationGe nericNam e: triamcin olone acetonid e Not Available Not Available Not Available levothyro xine 150 mcg tablet TAKE 1 TABLET BY MOUTH ONCE DAILY active Not Available Not Available No t Available Advair Diskus 250 mcg-50 mcg/dose powder for inhalatio n INHALE 1 PUFF BY MOUTH TWICE DAILY RINSE MOUTH AFTER USING. active Not Available Not Available No t Available gabapenti n 300 mg capsule TAKE 1 CAPSULE BY MOUTH EVERY DAY AT BEDTIME FOR PAIN active Not Available Not Available No t Available monteluka st 10 mg tablet TAKE 1 TABLET BY MOUTH EVERY DAY IN THE MORNING active Not Available Not Available No t Available azelastin e 137 mcg (0.1 %) nasal spray Inhale 2 spray twice a day as directed 2021 active Medicati on ID: [id number] D uration Value: 30 Prescri bed By Name: GABRIELLE Shi nd Name: azelasti ne Send Method: E-Prescr ibed Sub s Allowed: subs OK Medic ationGen ericName : azelasti ne Not Available Not Available Not Available epinephri ne 0.3 mg/0.3 mL injection , auto-inje ctor 1 PEN INJECTOR INTRAMUS CULARLY active Not Available Not Available No t Available hydroxyzi ne HCl 10 mg tablet TAKE 1 TABLET BY MOUTH TWICE DAILY active Not Available Not Available No t Available fluticaso ne propionat e 50 mcg/actua tion nasal spray,erin pension 2 sprays each nostril once daily 2023 active Not Available Not Available Not Avai lable cholecalc iferol (vitamin D3) 125 mcg (5,000 unit) capsule TAKE 1 CAPSULE BY MOUTH ONCE DAILY active Not Available Not Available No t Available doxycycli ne hyclate 100 mg tablet 1 tablet 2021 active Medicati on ID: [id number] D uration Value: 14 Prescri bed By Name: GABRIELLE Tamez nd Name: doxycycl ine hyclate Send Method: E-Prescr ibed Sub s Allowed: subs OK Medic ationGen ericName : doxycycl ine hyclate Not Available Not Available Not Available amoxicill in 875 mg-potass ium clavulana te 125 mg tablet TAKE 1 TABLET BY MOUTH TWICE DAILY FOR 7 DAYS active Not Available Not Available No t Available Ventolin HFA 90 mcg/actua tion aerosol inhaler INHALE 2 PUFFS BY MOUTH EVERY 4 HOURS NEEDED FOR WHEEZING OR SHORTNES S OF BREATH active Not Available Not Available No t Available Fiber-Lax 625 mg tablet 03/13 completed Medicati on ID: [id number] B rand Name: Fiber-La x Send Method: E-Prescr ibed Sub s Allowed: subs OK Speci al Instruct ion: TAKE 1 TABLET BY MOUTH TWICE DAILY NEEDED FOR CONSTIPA TION Med icationG enericNa me: Fiber-La x Not Available Not Available Not Available olmesarta n 20 mg tablet TAKE 1 TABLET BY MOUTH ONCE DAILY active Not Available Not Available No t Available Vitamin D3 25 mcg (1,000 unit) capsule 03/13 completed Medicati on ID: [id number] D uration Value: 30 Brand Name: Vitamin D3 Send Method: E-Prescr ibed Sub s Allowed: subs OK Speci al Instruct ion: TAKE 1 CAPSULE EVERY DAY Medi cationGe nericNam e: Vitamin D3 Not Available Not Available Not Available cyclobenz aprine 5 mg tablet TAKE 1 TABLET BY MOUTH TWICE DAILY NEEDED FOR MUSCLE SPASMS active Not Available Not Available No t Available bupropion HCl XL 300 mg 24 hr tablet, extended release TAKE 1 TABLET BY MOUTH EVERY DAY IN THE MORNING active Not Available Not Available No t Available bupropion HCl XL 150 mg 24 hr tablet, extended release 2021 active Medicati on ID: [id number] B rand Name: bupropio n HCl Send Method: E-Prescr ibed Sub s Allowed: subs OK Azar al Instruct ion: TAKE 1 TABLET BY MOUTH ONCE DAILY Me dication GenericN lissette: bupropio n HCl Not Available Not Available Not Available topiramat e 50 mg tablet TAKE 1 TABLET BY MOUTH TWICE A DAY FOR 90 DAYS active Not Available Not Available No t Available fluocinol one 0.01 % scalp oil and shower cap APPLY A THIN LAYER TO DAMP SCALP, MASSAGE WELL and COVER. LEAVE ON FOR 4 HOURS OR OVERNIGH T THEN WASH OFF active Not Available Not Available No t Available chlorhexi dine gluconate 0.12 % mouthwash PLEASE SEE ATTACHED FOR DETAILED DIRECTIO NS active Not Available Not Available No t Available cholecalc iferol (vitamin D3) 25 mcg (1,000 unit) tablet TAKE 1 TABLET BY MOUTH DAILY IN THE MORNING active Not Available Not Available No t Available ferrous gluconate 324 mg (38 mg iron) tablet TAKE 1 TABLET BY MOUTH TWICE A WEEK active Not Available Not Available No t Available Symbicort 80 mcg-4.5 mcg/actua tion HFA aerosol inhaler active Medicati on ID: [id number] B rand Name: Symbicor t Send Method: E-Prescr ibed Sub s Allowed: subs OK Azar al Instruct ion: INHALE 2 PUFFS BY MOUTH TWICE DAILY IN THE MORNING AND IN THE EVENING, RINSE MOUTH AFTER USING. M edicatio nGeneric Name: Symbicor t Not Available Not Available Not Available Stool Softener- Stimulant Laxative 8.6 mg-50 mg tablet TAKE 1 TABLET BY MOUTH ONCE DAILY active Not Available Not Available No t Available diclofena c 1 % topical gel APPLY 2 GRAMS TOPICALL Y TWICE DAILY NEEDED FOR MUSCLE PAIN active Not Available Not Available No t Available Tirosint 137 mcg capsule TAKE 1 CAPSULE BY MOUTH EVERY DAY active Not Available Not Available No t Available Vitamin D3 50 mcg (2,000 unit) capsule TAKE 1 CAPSULE BY MOUTH ONCE DAILY active Not Available Not Available No t Available Vitamins Plus Low Iron 27 mg iron-1 mg tablet TAKE 1 TABLET BY MOUTH EVERY DAY active Not Available Not Available No t Available Zepbound 2.5 mg/0.5 mL subcutane ous pen injector INJECT ONE PEN (=2.5MG) SUBCUTAN EOUSLY ONCE A WEEK DIRECTED active Not Available Not Available No t Available tirzepati de (weight loss) active Not Available Not Available Not Available Vitals None Recorded Social History None recorded. Functional Status None recorded. Mental Status None recorded. Family History Nothing Reported. Medical History No medical history recorded. Gynecological HistoryNo gynecological history recorded. Obstetrics History GPAL:G 0 P 0 0 0 0 Past Encounters Encounter ID Performer Location Encounter Start Date Encounter Closed Date Diagnosis/Indication Diagnosis SNOMED-CT Code Diagnosis ICD10 Code Diagnosis Note [id number] BABS JUSTO, A Allergy [address] [place] [address] 02/10/2024 14:26:51 02/10/2024 14:35:04 Perennial allergic rhinitis 815145110 J30.89 [id number] [facility] [address] [place] [phone] 02/15/2024 11:08:17 02/15/2024 11:17:45 Perennial allergic rhinitis [id number] J30.89 [id number] [facility] All[facility] [address] [place] [address] it [address] [place] [address] 02/24/2024 11:29:38 02/24/2024 11:31:30 Perennial allergic rhinitis [id number] J30.89 [id number] [facility] Allergy [address] [place] [address] [place] [address] 03/02/2024 12:01:42 03/02/2024 12:02:49 Perennial allergic rhinitis [id number] J30.89 [id number] CHASIDY OLIVIER RN Allergy 100 [facility], ite 100 [place] [address] 03/10/2024 12:04:55 03/10/2024 12:06:11 Perennial allergic rhinitis [id number] J30.89 Health Concerns Section Related Observation LastModified by Organization Detai ls LastModified Time None Recorded Concern Status LastModified by Organization Details LastModified Time None Recorded Payers Encounter Date Sequence Insurance Name Policy Number Policy Monet Covered Member ID Monet Member ID Guarantor Name 03/10/2024 1 [place] [facility] Desire Marrero [id number] Desire Marrero OBGyn Episode No OBEpisode recorded.
--- OUTSIDE RECORDS SUMMARY | 2024-03-30 13:01 | XMS_ITS | Continuity of Care Document ---
Author Organization [place] - [facility], Allergy Address [address] [place] [phone] Assessment Encounter Date Assessment Date Assessment LastModified by Organization Details LastModified Time 03/02/2024 03/02/2024 Visit With: Yu Jorge Use of Antihistamine s: Yes If yes: Vial Test Change in medications: No If yes ? ? ? Increase in asthma symptoms If yes, inhaler use: Reaction to last injections: No If yes: ? ? ? Allergy Symptoms: Other: ? ? ? Missed: Dose Aware of Vial Test Notes:? ? ? [email or web address] Not available 03/02/2024 12:02:33 Plan of Treatment Reminders Order Date Submit Date Provider Last Modified By Organization Details Last Modified Time Details Appointments [facility]- Allergy f-up 6mon 2024 11:00A M SANDOR [...] Address Organization Details Recorded Time Acute sinusitis 45707197 Active 2020 Acute sinusitis , unspecifi ed; Note: Date Diagnosed : 05/10/2020 3:30 PM (J01.90) Not Available [facility] 4 03:13:59 Deviated nasal septum 944017983 Active 2018 Deviated nasal septum; Note: Date Diagnosed : 07/05/2018 11:43 AM (J34.2) Not Available [facility] 4 03:13:58 Chronic rhinitis 65409899 Active 2020 Chronic rhinitis; Note: Date Diagnosed : 01/09/2021 3:05 PM (J31.0) Not Available [facility] 4 03:13:58 Headache 17528488 Active 2019 Facial pain NOS; Note: Date Diagnosed : 02/10/2019 1:37 PM (R51) Not Available [facility] 4 03:13:58 Nasal congestio n 57093664 Active 2018 Nasal congestio n; Note: Date Diagnosed : 07/05/2018 11:43 AM (R09.81) Not Available [facility] 4 03:13:58 Polyp of nasal cavity 937296726 Active 2021 Polyp of nasal cavity; Note: Date Diagnosed : 03/13/2021 11:28 AM (J33.0) Not Available [facility] 4 03:13:57 Allergic rhinitis 30365635 Active 2023 Allergic rhinitis: Due to other allergen; Note: Date Diagnosed : 02/12/2023 11:57 AM (477.8) Note: Date Diagnosed : 02/12/2023 11:57 AM (477.8) Allergi c rhinitis: Due to other allergen; Note: Date Diagnosed : 3 9:27 AM (477.8) Note: Date Diagnosed : 3 9:27 AM (477.8) ; Start Date : 3 Allergi c rhinitis: Due to other allergen; Note: Date Diagnosed : 3 10:29 AM (477.8) Note: Date Diagnosed : 3 10:29 AM (477.8) ; Start Date : 3 Allergi c rhinitis: Due to other allergen; Note: Date Diagnosed : 3 1:13 PM (477.8) Note: Date Diagnosed : 3 1:13 PM (477.8) ; Start Date : 3 Allergi c rhinitis: Due to other allergen; Note: Date Diagnosed : 3 11:59 AM (477.8) Note: Date Diagnosed : [...] ; Start Date : 9 Not Available [facility] 4 01:24:27 Otalgia of right ear 2844979827 Active 2019 Otalgia, right ear; Note: Date Diagnosed : 12/11/2019 2:59 PM (H92.01) Not Available [facility] 4 03:13:59 Perennial allergic rhinitis 297175604 Active 2023 YU JORGE [place] [address], [place], [address] , [facility] - [facility] 4 11:04:09 Impacted cerumen in right ear 32562660383 61012 Active 2023 ORVILLE PURCELL MD [address] [place] [address], [place], [address] , [facility] - [facility] 4 11:08:25 Problem Notes None recorded. Procedures Surgical History Date Name Laterality Status Provider Name and Address Organization Details Recorded Time 03/23/19 25 Allergy Immunotherapy Injections completed BABS DUNCAN Sergio 100 [facility],[address], [address], [facility] - [facility] 03/23/2024 15:32:40 03/10/19 25 Allergy Immunotherapy Injections completed CHASIDY OLIVIER RN [address] [place] [address],[address], [address], [place] - [facility] 03/10/2024 12:05:52 03/02/19 25 Allergy Immunotherapy Injections completed KOURTNEY MANCINI [address],[place], [place], [address], [place] [facility] 03/02/2024 12:02:23 02/23/19 25 Allergy Immunotherapy Injections completed VICTORIANO MANCINIA [address], [place], [address], [place] [facility] 02/24/2024 11:30:40 02/14/19 25 Allergy Immunotherapy Injections completed BABS DUNCAN, RMA [address], [place], [address], [place] [facility] 02/15/2024 11:08:53 02/09/19 25 Allergy Immunotherapy Injections completed BABS DUNCAN RMA [address], [place], [address], [place] [facility] 02/10/2024 14:28:06 01/27/20 24 Allergy Immunotherapy Injections completed CHASIDY OLIVIER RN [address] [place] [address], [address], [place] [facility] 01/27/2024 09:07:49 01/20/20 24 Allergy Immunotherapy Injections completed YU JORGE RMA [address], [place], [address], [place] [facility] 01/20/2024 13:36:07 01/13/20 24 Allergy Immunotherapy Injections completed BABS DUNCAN, RMA [address], [place], [address], [place] [facility] 01/13/2024 14:30:51 01/05/20 24 Allergy Immunotherapy Injections completed BABS KEMPC, RMA [address], [place], [address], [place] [facility] 01/05/2024 13:22:16 12/30/19 24 Allergy Immunotherapy Injections completed YU JORGE RMA [address], [place], [address], [place] [facility] 12/30/2023 12:06:22 12/23/19 24 Allergy Immunotherapy Injections completed BABS DUNCAN RMA [address], [place], [address], [place] [facility] 12/23/2023 11:41:23 12/16/19 24 Allergy Immunotherapy Injections completed KOURTNEY MANCINI [address], [place], [address], [place] [facility] 12/16/2023 11:21:05 12/09/19 24 Allergy Immunotherapy Injections completed BABS DUNCAN RMA [address], [place], [address], [place] [facility] 12/09/2023 11:41:30 11/30/19 24 Allergy Immunotherapy Injections completed CHASIDY OLIVIER RN [address],[place] [place] [address], [address], [place] [facility] 11/30/2023 11:29:17 11/25/19 24 Allergy Immunotherapy Injections completed BABS DUNCAN RMA [address],[place] [place] [address], [address], [place] [facility] 11/25/2023 11:41:02 11/18/19 24 Allergy Immunotherapy Injections completed KOURTNEY MANCINI [address],[place] [place] [address], [address], [place] [facility] 11/18/2023 11:51:54 11/11/19 24 Allergy Immunotherapy Injections completed CHASIDY OLIVIER RN [address],[place] [place] [address], [address], [place] [facility] 11/11/2023 09:15:07 11/05/19 24 Allergy Immunotherapy Injections completed KOURTNEY MANCINI [address], [place], [address], [place] [facility] 11/05/2023 12:14:13 10/28/19 24 Allergy Immunotherapy Injections completed BABS DUNCAN RMA [address], [place], [address], [place] [facility] 10/28/2023 14:45:57 10/21/19 24 Allergy Immunotherapy Injections completed VICOTRIANO MANCINIA [address], [place], [address], [place] [facility] 10/21/2023 11:41:17 10/08/19 24 Allergy Immunotherapy Injections completed BABS DUNCAN, RMA [address], [place], [address], [place] [facility] 10/08/2023 11:33:35 10/01/19 24 Allergy Immunotherapy Injections completed VICTORIANO MANCINIA [address], [place], [address], [place] [facility] 10/01/2023 10:32:59 09/23/19 24 Allergy Immunotherapy Injections completed VICTORIANO MANCINIA [address] [facility] [address] [place], [place], [address], [place] [facility] 09/23/2023 13:46:52 09/16/19 24 Allergy Immunotherapy Injections completed BABS DUNCAN RMA [address],[place] [place] [address], [address], [place] [facility] 09/16/2023 14:07:22 09/09/19 24 Allergy Immunotherapy Injections completed CHASIDY OLIVIER RN [address] [facility] [place] [address] [place] [address], [address], [place] [facility] 09/09/2023 12:03:04 09/02/19 24 Allergy Immunotherapy Injections completed BABS DUNCAN RMA [address],[place], [place], [address], [place] [facility] 09/02/2023 11:46:51 08/26/19 24 Allergy Immunotherapy Injections completed BABS DUNCAN, RMA [address], [place], [address], [place] [facility] 08/26/2023 13:11:56 08/19/19 24 Allergy Immunotherapy Injections completed CHASIDY OLIVIER RN [address],[place] [place] [address], [address], [facility] - [facility] [place] 08/19/2023 14:02:06 08/10/19 24 Allergy Immunotherapy Injections completed BABS DUNCAN RMA [address],[place], [place], [address], [facility] - [facility] [place] [facility] 08/10/2023 15:12:45 08/04/19 24 Allergy Immunotherapy Injections completed BABS DUNCAN RMA [address],[place], [place], [address], [facility] - [facility] [place] 08/04/2023 12:15:15 08/04/19 24 Cerumen removal without microscope completed ORVILLE PURCELL MD [address],[place] [address] [place] [address], [address], [facility] - [facility] 08/04/2023 11:08:52 07/28/19 24 Allergy Immunotherapy Injections completed KOURTNEY MANCINI [address] [facility] [place] [address] [place] [address], [address], [facility] - [facility] [place] 07/28/2023 15:01:20 07/20/19 24 Allergy Immunotherapy Injections completed BABS DUNCAN RMA [address],[place] [address] [place] [address], [address], [facility] - [facility] 07/20/2023 14:23:42 07/13/19 24 Allergy Immunotherapy Injections completed KOURTNEY MANCINI [address] [facility] [place] [address] [place] [address], [address], [facility] - [facility] 07/13/2023 13:59:55 07/06/19 24 Allergy Immunotherapy Injections completed KOURTNEY MANCINI [address] [facility] [place] [address] [place] [address], [address], [facility] - [facility] 07/06/2023 12:17:36 06/29/19 24 Allergy Immunotherapy Injections completed KOURTNEY MANCINI [address],[place], [place], [address], [facility] - [facility] 06/29/2023 11:04:40 Imaging Results None recorded. Procedure Notes None recorded. Medical Equipment None Reported. Medications Name Sig Start Date Stop Date Status Note LastModified by Organization Details LastModified Time prednison e 10 mg tablet Take as directed 2022 active Medicati on ID: [id number] D uration Value: 12 Brand Name: predniso [...] % shampoo 2021 active Medicati on ID: [id number] B rand Name: ketocona zole Sen d [...] eye drops 06/16 completed Medicati on ID: [id number] B rand Name: ketotife n fumarate Send [...] eye drops 2021 active Medicati on ID: 537044 B rand Name: kassilyn Send Method: E-Prescr ibed Sub s Allowed: subs OK Speci al Instruct ion: INSTILL 1 DROP 4 TIMES A DAY INTO AFFECTED EYE NEEDED M diony Romeroic Name: cromolyn Not Available Not Available Not [...] a day 2021 active Medicati on ID: [id number] D uration Value: 7 Brand Name: ofloxaci [...] mg tablet 03/13 completed Medicati on ID: 403921 D uration Value: 15 Brand Name: lorazepa m Send Method: E-Prescr ibed Sub s Allowed: subs OK Speci al Instruct ion: TAKE 1 TABLET TWICE DAILY NEEDED M diony Chuaeneric Name: lorazepa m Not Available Not Available Not Available cyanocoba santy (vit B-12) 500 mcg tablet 06/16 completed Medicati on ID: 372703 B rand Name: cyanocob alamin (vitamin B-12) Se nd Method: E-Prescr ibed Sub s Allowed: subs KALIE craney Instruct ion: TAKE 1 TABLET BY MOUTH [...] spray aerosol 06/16 completed Medicati on ID: 308004 B rand Name: triamcin olone acetonid e Send Method: E-Prescr ibed Sub s Allowed: subs KALIE carney Instruct ion: TAKE 2 SPRAYS INTO EACH [...] as directed 2021 active Medicati on ID: [id number] D uration Value: 30 Prescri bed By [...] 1 tablet 2021 active Medicati on ID: 636590 D uration Value: 14 Prescri bed By [...] mg tablet 03/13 completed Medicati on ID: [id number] B rand Name: Fiber-La x Send Method: [...] unit) capsule 03/13 completed Medicati on ID: [id number] D uration Value: 30 Brand Name: Vitamin D3 Send Method: E-Prescr ibed Sub s Allowed: subs OK Speci al Instruct ion: TAKE 1 CAPSULE EVERY DAY Medi cation nericNam e: Vitamin D3 Not Available Not [...] extended release 2021 active Medicati on ID: 452397 B rand Name: bupropio n HCl Send [...] HFA aerosol inhaler active Medicati on ID: 599790 B rand Name: Symbicor t Send Method: E-Prescr ibed Sub s Allowed: subs OK Speci al Instruct ion: INHALE 2 PUFFS BY MOUTH TWICE DAILY IN THE MORNING AND IN THE EVENING, RINSE MOUTH AFTER USING. Nai De La Vega Name: Symbicor t Not Available Not Available [...] SNOMED-CT Code Diagnosis ICD10 Code Diagnosis Note [id number] BABS JUSTO RMA Allergy [address] [place] [address] 02/10/2024 14:26:51 02/10/2024 14:35:04 Perennial allergic rhinitis [id number] J30.89 [id number] BABS JUSTO RMA Allergy [address] [place] [address] it 100 [place] [address] 02/15/2024 11:08:17 02/15/2024 11:17:45 Perennial allergic rhinitis [id number] J30.89 [id number] YU JORGE A Allergy [address] [place] [address] ite [address] [place] [address] 02/24/2024 11:29:38 02/24/2024 11:31:30 Perennial allergic rhinitis 302082374 J30.89 [id number] YU JORGE [facility] Allergy [address] [place] [address] 100 [facility] [place] [address] 03/02/2024 12:01:42 03/02/2024 12:02:49 Perennial allergic rhinitis 226870524 J30.89 Health Concerns Section Related Observation LastModified by Organization Ashia mace LastModified Time None Recorded Concern Status LastModified by Organization Details LastModified Time None Recorded Payers Encounter Date Sequence Insurance Name Policy Number Policy Monet Covered Member ID Monet Member ID Guarantor Name 03/02/2024 1 [place] [facility] Desire Marrero [id number] Desire Marrero OBGyn Episode No OBEpisode recorded.
--- OUTSIDE RECORDS SUMMARY | 2024-03-30 13:02 | XMS_ITS | Encounter Summary ---
Author Organization [employer] Address [address] [place] [address] Care Team Providers Care Certified Nurse Midwife Name Role Phone Roberta Burroughs MD Primary Care Pro vider Gonsalo Unger Unavailable Unavailable Reason for Visit * Reason Comments Med Refill Encounter Details Date Type Department Care Team (Late st Contact Info) Description 08/11/2023 Refill [facility] [address] [place] [address] Gonsalo Unger FNP Anxious depression Social History Tobacco Use Types Packs/Day Years Used Date Smoking Tobacco: Never Smokeless Tobacco: Never Alcohol Use Standard Drinks/Week Comments Yes 0 (1 standard drink = 0.6 oz pur e alcohol) social Depression Answer Date Recorded Patient Health Questionnaire-9 Score 12 03/15/2023 Patient Health Questionnaire-9 Score 12 03/15/2023 Last PHQ-9: Questionnaire Data Not on file 0 03/15/2023 Housing Stability Answer Date Recorded What is your housing situation today? I have robby cornelius 06/04/[address] you li ve. Do you have problems with any of the following? None of the above 06/04/2023 Food Insecurity Answer Date Recorded Within the past 12 months, y ou worried that your food would run out before you got money to buy more: Never True 06/04/2023 Within the past 12 months,th e food you bought just didn't last and you didn't have enough money to get more: Never True Transportation Answer Date Recorded In the past 12 months, has l ack of transportation kept you from medical appts, meetings, work or from getting things needed for daily living? No 06/04/2023 Utilities Answer Date Recorded In the past 12 months, has t he electric, gas, oil or water company threatened to shut off services in your home? 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
--- OUTSIDE RECORDS SUMMARY | 2024-03-30 13:02 | XMS_ITS | Clinical Summary ---
Author Organization [facility] Address [address] [place] [address] Care Team Providers Care Heel Packer Name Role Phone Gonsalo Unger NP Primary Care Provider [phone] Social History Tobacco Use Types Packs/Day Years Used Date Smoking Tobacco: Never Assessed Comments Unknown Sex and Gender Information Value Date Recorded Sex Assigned at Not on file Legal Sex Female 4:33 AM EST Gender Identity Not on file Sexual Orientation Not on file Plan of Treatment Health Maintenance Due Date Last Done Comments Breast Cancer Screening 1983 DTaP,Tdap,and Td Vaccines (1 - Tdap) 10/24/2002 Hepatitis B Vaccines (1 of 3 - 19+ 3-dose series) 10/24/2002 Cervical Cancer Screening: P ap Smear 10/24/2004 COVID-19 Vaccine (2023-2 5 season) 2023 Influenza Vaccine (#1) 2023 HIB Vaccines Aged Out No longer eligi ble based on patient's age to complete this topic HPV Vaccines Aged Out No longer eligi ble based on patient's age to complete this topic Hepatitis A Vaccines Aged Out No long er eligible based on patient's age to complete this topic IPV Vaccines Aged Out No longer eligi ble based on patient's age to complete this topic MMR Vaccines Aged Out No longer eligi ble based on patient's age to complete this topic Meningococcal ACWY Vaccine Aged Out N o longer eligible based on patient's age to complete this topic Meningococcal B Vacine Aged Out No lo nger eligible based on patient's age to complete this topic Pneumococcal Vaccine: Pediat rics (0 to 5 Years) and At-Risk Patients (6 to 64 Years) Aged Out No longer eligible b ased on patient's age to complete this topic RSV Immunization Patients Un livan 20 months Aged Out No longer eligible b ased on patient's age to complete this topic Varicella Vaccines Aged Out No longer eligible based on patient's age to complete this topic Care Teams Heel Packer Relationship Specialty Start Date End Date Gonsalo Unger NP [address] [place], [place] PCP - General Internal Medicine 06/24/16
--- OUTSIDE RECORDS SUMMARY | 2024-03-30 13:02 | XMS_ITS | Data Portability ---
Author Organization [facility], Allergy Address [address] [place] [phone] Assessment Encounter Date Assessment Date Assessment LastModified by Organization Details LastModified Time 02/15/2024 02/15/2024 Visit With: KOURTNEY Medina Use of Antihistamine s: Yes If yes: Vial Test Change in medications: Yes If yes ? ? ?not sure name of weightloss med Increase in asthma symptoms No Asthma Hx If yes, inhaler use: Reaction to last injections: No If yes: ? ? ? Allergy Symptoms: Other: ? ? ? Missed: Dose Aware of Vial Test Notes:? ? ? ale Not available 02/15/2024 11:17:28 02/24/2024 02/24/2024 Visit With: Chasidy Olivier RN Use of Antihistamine s: Yes If yes: Vial Test Change in medications: No If yes ? ? ? Increase in asthma symptoms No Asthma Hx If yes, inhaler use: Reaction to last injections: Yes If yes: ? ? ?L 10mm Allergy Symptoms: Other: ? ? ? Missed: Dose Aware of Vial Test Notes:? ? ? [email or web address] Not available 02/24/2024 11:30:12 03/02/2024 03/02/2024 Visit With: Yu Acevedo Use of Antihistamine s: Yes If yes: Vial Test Change in medications: No If yes ? ? ? Increase in asthma symptoms If yes, inhaler use: Reaction to last injections: No If yes: ? ? ? Allergy Symptoms: Other: ? ? ? Missed: Dose Aware of Vial Test Notes:? ? ? [email or web address] Not available 03/02/2024 12:02:33 03/10/2024 03/10/2024 Visit With: Chasidy Olivier RN [...] ? ? [email or web address] Not available 03/10/2024 12:05:21 03/23/2024 03/23/2024 Visit With: KOURTNEY Medina Use of Antihistamine s: Yes If yes: Vial Test Change in medications: No If yes ? ? ? Increase in asthma symptoms No Asthma Hx If yes, inhaler use: Reaction to last injections: No If yes: ? ? ? Allergy Symptoms: Other: ? ? ? Missed: 1 week Dose Repeated Aware of Vial Test Notes:? ? ? [email or web address] Not available 03/23/2024 15:33:04 Plan of Treatment Reminders Order Date Submit Date Provider Last Modified By Organization Details Last Modified Time Details Appointments - Allergy f-up 6mon 2024 11:00A M SANDOR [...] Address Organization Details Recorded Time Acute sinusitis 52709610 Active 2020 Acute sinusitis , unspecifi ed; Note: Date Diagnosed : 05/10/2020 3:30 PM (J01.90) Not Available formerly [facility] 4 03:13:59 Deviated nasal septum 106345795 Active 2018 Deviated nasal septum; Note: Date Diagnosed : 07/05/2018 11:43 AM (J34.2) Not Available formerly [facility] 4 03:13:58 Chronic rhinitis 20635823 Active 2020 Chronic rhinitis; Note: Date Diagnosed : 01/09/2021 3:05 PM (J31.0) Not Available formerly [facility] 4 03:13:58 Headache 95767158 Active 2019 Facial pain NOS; Note: Date Diagnosed : 02/10/2019 1:37 PM (R51) Not Available formerly [facility] 4 03:13:58 Nasal congestio n 62192102 Active 2018 Nasal congestio n; Note: Date Diagnosed : 07/05/2018 11:43 AM (R09.81) Not Available formerly [facility] 4 03:13:58 Polyp of nasal cavity 529457537 Active 2021 Polyp of nasal cavity; Note: Date Diagnosed : 03/13/2021 11:28 AM (J33.0) Not Available formerly [facility] 4 03:13:57 Allergic rhinitis 29231452 Active 2023 Allergic rhinitis: Due to other [...] 11:59 AM (477.8) Note: Date Diagnosed : 3 11:59 AM (477.8) ; Start Date : 3 Allergi c rhinitis: Due to other allergen; Note: Date Diagnosed : 3 1:41 PM (477.8) Note: Date Diagnosed : 3 1:41 PM (477.8) ; Start Date : 3 Allergi c rhinitis: Due to other allergen; Note: Date Diagnosed : 2:21 PM (477.8) Note: Date Diagnosed : 2:21 PM (477.8) ; Start Date : 3 Allergi c rhinitis: Due to other allergen; Note: Date Diagnosed : 2:00 PM (477.8) Note: Date Diagnosed : 2:00 PM (477.8) ; Start Date : 3 Allergi c rhinitis: Due to other allergen; Note: Date Diagnosed : 11/06/2022 11:43 AM (477.8) Note: Date Diagnosed : 11/06/2022 11:43 AM (477.8) ; Start Date : 3 Allergi c rhinitis: Due to other allergen; Note: Date Diagnosed : 10/30/2022 1:33 PM (477.8) Note: Date Diagnosed : 10/30/2022 1:33 PM (477.8) ; Start Date : 3 Allergi c rhinitis: Due to other allergen; Note: Date Diagnosed : 10/23/2022 11:49 AM (477.8) Note: Date Diagnosed : 10/23/2022 11:49 AM (477.8) ; Start Date : 3 Allergi c rhinitis: Due to other allergen; Note: Date Diagnosed : 10/05/2022 3:42 PM (477.8) Note: Date Diagnosed : 10/05/2022 3:42 PM (477.8) ; Start Date : 3 Allergi c rhinitis: Due to other allergen; Note: Date Diagnosed : 08/12/2022 1:52 PM (477.8) Note: Date Diagnosed : 08/12/2022 1:52 PM (477.8) ; Start Date : 3 Allergi c rhinitis: Due to other allergen; Note: Date Diagnosed : 03/31/2019 1:19 PM (477.8) Note: Date Diagnosed : 03/31/2019 1:19 PM (477.8) ; Start Date : 0 Dougi al allergic rhinitis; Note: Changed from J30.89 to J30.89 ( 0 12:00 PM) , Date Diagnosed : 07/05/2018 11:43 AM (J30.89) Note: Changed from J30.89 to J30.89 ( 0 12:00 PM) , Date Diagnosed : 07/05/2018 11:43 AM (J30.89) ; Start Date : 9 Not Available formerly [facility] 4 01:24:27 Otalgia of right ear 0441485830 Active 2019 Otalgia, right ear; Note: Date Diagnosed : 12/11/2019 2:59 PM (H92.01) Not Available formerly [facility] 4 03:13:59 Perennial allergic rhinitis 871856757 Active 2023 KOURTNEY MANCINI [address] [facility],[place] [address], [place], [address] , [facility] - [facility] 4 11:04:09 Impacted cerumen in right ear [id number] 65870 Active 2023 ORVILLE PURCELL MD [address] [facility],[place] [address], [place], [address] , [facility] - [facility] 4 11:08:25 Problem Notes None recorded. Procedures Surgical History Date Name Laterality Status Provider Name and Address Organization Details Recorded Time 03/23/19 25 Allergy Immunotherapy Injections completed BABS DUNCAN Sergio [facility] [address], [place], [address], [facility] - [facility] 03/23/2024 15:32:40 03/10/19 25 Allergy Immunotherapy Injections completed CHASIDY OLIVIER RN [address] [facility],[address], [address], [facility] - [facility] 03/10/2024 12:05:52 03/02/19 25 Allergy Immunotherapy Injections completed KOURTNEY MANCINI [address],[place] [address], [place], [address], [place] [facility] 03/02/2024 12:02:23 02/23/19 25 Allergy Immunotherapy Injections completed VICTORIANO MANCINIA [address],[place] [address], [place], [address], [place] [facility] 02/24/2024 11:30:40 02/14/19 25 Allergy Immunotherapy Injections completed BABS DUNCAN, RMA [address],[place] [address], [place], [address], [place] [facility] 02/15/2024 11:08:53 02/09/19 25 Allergy Immunotherapy Injections completed BABS KEMPC, RMA [address],[place] [address] [place] [address], [address], [place] [facility] 02/10/2024 14:28:06 01/27/20 24 Allergy Immunotherapy Injections completed CHASIDY OLIVIER RN [address] [facility] [place] [address] [place] [address], [address], [place] [facility] 01/27/2024 09:07:49 01/20/20 24 Allergy Immunotherapy Injections completed YU ACEVEDO RMA [address],[place] [address] [place] [address], [address], [place] [facility] 01/20/2024 13:36:07 01/13/20 24 Allergy Immunotherapy Injections completed BABS DUNCAN, RMA [address],[place] [address] [place] [address], [address], [place] [facility] 01/13/2024 14:30:51 01/05/20 24 Allergy Immunotherapy Injections completed BABS DUNCAN, RMA [address],[place] [address], [place], [address], [place] [facility] 01/05/2024 13:22:16 12/30/19 24 Allergy Immunotherapy Injections completed YU ACEVEDO RMA [address],[place] [address], [place], [address], [place] [facility] 12/30/2023 12:06:22 12/23/19 24 Allergy Immunotherapy Injections completed BABS KEMPC, RMA [address],[place] [address], [place], [address], [place] [facility] 12/23/2023 11:41:23 12/16/19 24 Allergy Immunotherapy Injections completed KOURTNEY MANCINI [address],[place] [address], [place], [address], [place] [facility] 12/16/2023 11:21:05 12/09/19 24 Allergy Immunotherapy Injections completed BABS DUNCAN RMSergio [address],[place] [address], [place], [address], [place] [facility] 12/09/2023 11:41:30 11/30/19 24 Allergy Immunotherapy Injections completed CHASIDY OLIVIER RN [facility] [place],[address], [address], [place] [facility] 11/30/2023 11:29:17 11/25/19 24 Allergy Immunotherapy Injections completed KOURTNEY MEDINA [address] [facility] [place],[place] [address] [place] [address], [address], [place] [facility] 11/25/2023 11:41:02 11/18/19 24 Allergy Immunotherapy Injections completed KOURTNEY MANCINI [address],[place] [address] [place] [address], [address], [place] [facility] 11/18/2023 11:51:54 11/11/19 24 Allergy Immunotherapy Injections completed CHASIDY OLIVIER RN [facility] [place],[address], [address], [place] [facility] 11/11/2023 09:15:07 11/05/19 24 Allergy Immunotherapy Injections completed KOURTNEY MANCINI [address],[place] [address] [place] [address], [address], [place] [facility] 11/05/2023 12:14:13 10/28/19 24 Allergy Immunotherapy Injections completed BABS DUNCAN RMSergio [address],[place] [address], [place], [address], [place] [facility] 10/28/2023 14:45:57 10/21/19 24 Allergy Immunotherapy Injections completed YU KRISTINA, RMA [address],[place] [address], [place], [address], [place] [facility] 10/21/2023 11:41:17 10/08/19 24 Allergy Immunotherapy Injections completed BABS DUNCAN, RMA [address], [place], [address], [place] [facility] 10/08/2023 11:33:35 10/01/19 24 Allergy Immunotherapy Injections completed VICTORIANO MANCINIA [address], [place], [address], [place] [facility] 10/01/2023 10:32:59 09/23/19 24 Allergy Immunotherapy Injections completed VICTORIANO MANCINIA [address], [place], [address], [place] [facility] 09/23/2023 13:46:52 09/16/19 24 Allergy Immunotherapy Injections completed BABS DUNCAN RMA [address],[place] [address], [place], [address], [place] [facility] 09/16/2023 14:07:22 09/09/19 24 Allergy Immunotherapy Injections completed CHASIDY OLIVIER RN [address],[place] [address] [place] [address], [address], [facility] - [facility] 09/09/2023 12:03:04 09/02/19 24 Allergy Immunotherapy Injections completed BABS DUNCAN RMA [address],[place] [address] [place] [address], [address], [facility] - [facility] 09/02/2023 11:46:51 08/26/19 24 Allergy Immunotherapy Injections completed BABS DUNCAN RMA [address],[place] [address], [place], [address], [place] [facility] 08/26/2023 13:11:56 08/19/19 24 Allergy Immunotherapy Injections completed CHASIDY OLIVIER RN [address],[place] [address], [place], [address], [place] [facility] 08/19/2023 14:02:06 08/10/19 24 Allergy Immunotherapy Injections completed BABS DUNCAN, RMA [address],[place] [address], [place], [address], [facility] - [facility] 08/10/2023 15:12:45 08/04/19 24 Allergy Immunotherapy Injections completed BABS JOLEENSEGUN, RMA [address] [address], [place], [address], [facility] - [facility] 08/04/2023 12:15:15 08/04/19 24 Cerumen removal without microscope completed ORVILLE PURCELL MD [address],[place], [place], [address], [facility] - [facility] 08/04/2023 11:08:52 07/28/19 24 Allergy Immunotherapy Injections completed KOURTNEY MANCINI [address],[place] [address] [place] [address], [address], [facility] - [facility] 07/28/2023 15:01:20 07/20/19 24 Allergy Immunotherapy Injections completed BABS DUNCAN [facility] [address] [facility],[place] [address] [place] [address], [address], [facility] - [facility] 07/20/2023 14:23:42 07/13/19 24 Allergy Immunotherapy Injections completed YU ACEVEDO [facility] [address] [facility],[place] [address] [place] [address], [address], [facility] - [facility] 07/13/2023 13:59:55 07/06/19 24 Allergy Immunotherapy Injections completed KOURTNEY MANCINI [address] [facility] [place],[address], [address], [facility] 07/06/2023 12:17:36 06/29/19 24 Allergy Immunotherapy Injections completed YU ACEVEDO [facility] [address] [facility],[place] [address] [place] [address], [address], [facility] - [facility] 06/29/2023 11:04:40 Imaging Results None recorded. Procedure Notes None recorded. Medical Equipment None Reported. Medications Name Sig Start Date Stop Date Status Note LastModified by Organization Details LastModified Time prednison e 10 mg tablet Take as directed 2022 active Medicati on ID: [id number] D uration Value: 12 Brand Name: predniso [...] % shampoo 2021 active Medicati on ID: 745224 B rand Name: ketocona zole Sen d [...] eye drops 06/16 completed Medicati on ID: 823475 B rand Name: ketotife n fumarate Send [...] eye drops 2021 active Medicati on ID: 674961 B rand Name: cromolyn Send Method: E-Prescr ibed Sub s Allowed: subs OK Speci al Instruct ion: INSTILL 1 DROP 4 TIMES A DAY INTO AFFECTED EYE NEEDED M edicatio nGeneric Name: cromolyn Not Available Not Available Not [...] a day 2021 active Medicati on ID: 642407 D uration Value: 7 Brand Name: ofloxaci [...] mg tablet 03/13 completed Medicati on ID: [id number] D uration Value: 15 Brand Name: lorazepa m Send Method: E-Prescr ibed Sub s Allowed: subs OK Speci al Instruct ion: TAKE 1 TABLET TWICE DAILY NEEDED M edicatio nGeneric Name: lorazepa m Not Available Not Available Not Available cyanocoba santy (vit B-12) 500 mcg tablet 06/16 completed Medicati on ID: 902662 B rand Name: cyanocob alamin (vitamin B-12) [...] spray aerosol 06/16 completed Medicati on ID: 623426 B rand Name: triamcin olone acetonid e [...] as directed 2021 active Medicati on ID: 078913 D uration Value: 30 Prescri bed By [...] 1 tablet 2021 active Medicati on ID: 148462 D uration Value: 14 Prescri bed By [...] mg tablet 03/13 completed Medicati on ID: [id number] B rand Name: Fiber-La x Send Method: [...] unit) capsule 03/13 completed Medicati on ID: [id number] D uration Value: 30 Brand Name: Vitamin [...] extended release 2021 active Medicati on ID: 703550 B rand Name: bupropio n HCl Send [...] HFA aerosol inhaler active Medicati on ID: 053260 B rand Name: Symbicor t Send Method: E-Prescr ibed Sub s Allowed: subs OK Azar al Instruct ion: INHALE 2 PUFFS BY MOUTH TWICE DAILY IN THE MORNING AND IN THE EVENING, RINSE MOUTH AFTER USING. M diony nGeneric Name: Symbicor t Not Available Not [...] SNOMED-CT Code Diagnosis ICD10 Code Diagnosis Note 970 SANDOR HOUSTON MD Allergy [address] [place] [address], [place] [address] 06/29/2023 10:40:03 06/29/2023 13:04:16 Perennial allergic rhinitis [id number] J30.89 1676 YU ACEVEDO [facility] Allergy [address] [place] [address], [place] [address] 07/06/2023 11:33:08 07/06/2023 13:08:25 Perennial allergic rhinitis [id number] J30.89 2711 YU ACEVEDO [facility] Allergy [address] [place] [address] it[address] 100 [place] [address] 07/13/2023 13:59:04 07/13/2023 16:17:46 Perennial allergic rhinitis [id number] J30.89 3638 BABS DUNCAN [facility] Allergy [address] [place] [address] it[address] [place] [address] 07/20/2023 13:40:57 07/20/2023 14:41:26 Perennial allergic rhinitis [id number] J30.89 4748 YU ACEVEDO [facility] Allergy [address] [facility],[address] [place] [address] 07/28/2023 14:43:00 07/28/2023 15:22:03 Perennial allergic rhinitis [id number] J30.89 5647 ORVILLE PURCELL MD [facility] [address] [facility] [place] [address] 08/04/2023 10:43:21 08/04/2023 11:37:12 Allergic rhinitis 10192975 J30.9 She is benefiting from immunother apy and should continue. No local or systemic reactions. Impacted c erumen in right ear [id number] H61.21 5670 [facility], [facility] Allergy [address] [place] [address] [place] [address] 08/04/2023 10:49:55 08/04/2023 12:16:11 Perennial allergic rhinitis [id number] J30.89 6379 [facility] All[facility] [address] [place], [place] [address] 100 [place] [address] 08/10/2023 14:50:37 08/10/2023 15:13:37 Perennial allergic rhinitis [id number] J30.89 7523 CHASIDY OLIVIER RN Allergy [address] [place], [place] [address] 100 [facility] [place] [address] 08/19/2023 13:02:50 08/19/2023 14:02:42 Perennial allergic rhinitis [id number] J30.89 8495 [facility] Allergy [address] [place], [place] [address] 100 [place] [address] 08/26/2023 13:09:41 08/26/2023 14:40:44 Perennial allergic rhinitis [id number] J30.89 9518 [facility] All[facility] [address] [place] [address],[place] [address] 100 [facility] [place] [address] 09/02/2023 11:46:08 09/02/2023 12:14:48 Perennial allergic rhinitis [id number] J30.89 27924 CHASIDY OLIVIER RN Allergy [address] [place] [address] ite 100 [place] [address] 09/09/2023 12:01:05 09/09/2023 12:03:31 Perennial allergic rhinitis [id number] J30.89 40665 [facility] Allergy [address] [place] [address],[address] [place] [address] 09/16/2023 14:06:37 09/16/2023 14:09:55 Perennial allergic rhinitis [id number] J30.89 [id number] YU ACEVEDO [facility] Allergy [address] [place] [address],[place] [place] [address] 09/23/2023 13:46:12 09/23/2023 15:15:35 Perennial allergic rhinitis [id number] J30.89 [id number] YU ACEVEDO [facility] Allergy [address] [place] [address] it[address] [place] [address] 10/01/2023 10:32:08 10/01/2023 11:08:50 Perennial allergic rhinitis [id number] J30.89 [id number] [facility] Allergy [address] [place] [address],[address] [place] [address] 10/08/2023 11:32:22 10/08/2023 11:35:11 Perennial allergic rhinitis [id number] J30.89 [id number] YU ACEVEDO [facility] Allergy [address] [place] [address],[address] [place] [address] 10/21/2023 11:40:28 10/21/2023 11:45:15 Perennial allergic rhinitis [id number] J30.89 [id number] [facility] Allergy [address] [place] [address],[place] [place] [address] 10/28/2023 14:45:23 10/28/2023 14:46:29 Perennial allergic rhinitis [id number] J30.89 [id number] YU ACEVEDO [facility] Allergy [address] [place] [address],[place] [place] [address] 11/05/2023 12:13:34 11/05/2023 12:17:02 Perennial allergic rhinitis [id number] J30.89 [id number] CHASIDY OLIVIER RN Allergy [address] [place] [address] it[address] [place] [address] 11/11/2023 09:14:13 11/11/2023 09:15:31 Perennial allergic rhinitis [id number] J30.89 [id number] YU KRISTINA [facility] Allergy [address] [place] [address],[place] [place] [address] 11/18/2023 11:51:09 11/18/2023 11:54:40 Perennial allergic rhinitis [id number] J30.89 [id number] [facility] Allergy [address] [place] [address],[place] [address] [place] [address] 11/25/2023 11:40:11 11/25/2023 11:42:27 Perennial allergic rhinitis [id number] J30.89 [id number] CHASIDY OLIVIER pull 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 [address] [place] [address], [address] [place] [address] 11/30/2023 11:27:30 11/30/2023 11:29:40 Perennial allergic rhinitis [id number] J30.89 [id number] [facility] Allergy [address] [place] [address],[place] [place] [address] 12/09/2023 11:40:30 12/09/2023 11:45:14 Perennial allergic rhinitis [id number] J30.89 [id number] YU KRISTINA [facility] Allergy [address] [place] [address],[place] [address] [place] [address] 12/16/2023 11:19:05 12/16/2023 11:25:34 Perennial allergic rhinitis [id number] J30.89 [id number] [facility] Allergy [address] [place] [address],[place] [place] [address] 12/23/2023 11:40:45 12/23/2023 11:41:56 Perennial allergic rhinitis [id number] J30.89 [id number] YU KRISTINA [facility] Allergy [address] [place] [address],[place] [place] [address] 12/30/2023 12:05:49 12/30/2023 12:09:12 Perennial allergic rhinitis [id number] J30.89 [id number] [facility] Allergy [address] [place] [address],[place] [place] [address] 01/05/2024 13:21:18 01/05/2024 13:23:23 Perennial allergic rhinitis [id number] J30.89 [id number] [facility] Allergy [address] [place] [address],[address] [place] [address] 01/13/2024 14:30:08 01/13/2024 14:31:30 Perennial allergic rhinitis [id number] J30.89 [id number] YU ACEVEDO, [facility] Allergy [address] [place] [address],[address] [place] [address] 01/20/2024 13:35:13 01/20/2024 13:37:34 Perennial allergic rhinitis [id number] J30.89 [id number] CHASIDY OLIVIER RN Allergy [address] [place] [address] it[address] [place] [address] 01/27/2024 09:07:15 01/27/2024 09:14:27 Perennial allergic rhinitis [id number] J30.89 [id number] [facility] Allergy [address] [place] [address], [address] [place] [address] 02/10/2024 14:26:51 02/10/2024 14:35:04 Perennial allergic rhinitis [id number] J30.89 [id number] [facility] Allergy [address] [place] [address],[place] [address] [place] [address] 02/15/2024 11:08:17 02/15/2024 11:17:45 Perennial allergic rhinitis [id number] J30.89 [id number] YU ACEVEDO [facility] Allergy [address] [place] [address],[place] [place] [address] 02/24/2024 11:29:38 02/24/2024 11:31:30 Perennial allergic rhinitis [id number] J30.89 70469 YU ACEVEDO [facility]LY [facility] Allergy [address] [place] [address],[place]al ite [address] [place] [address] 03/02/2024 12:01:42 03/02/2024 12:02:49 Perennial allergic rhinitis [id number] J30.89 05749 CHASIDY OLIVIER RN Allergy [address] [place] [address] ite 100 [facility] [address] 03/10/2024 12:04:55 03/10/2024 12:06:11 Perennial allergic rhinitis [id number] J30.89 87253 BABS KEMPC, RMA Allergy 100 [facility], ite 100 [facility] [address] 03/23/2024 15:32:06 03/23/2024 15:33:20 Perennial allergic rhinitis [id number] J30.89 Health Concerns Section Related Observation LastModified by Organization Detai ls LastModified Time None Recorded Concern Status LastModified by Organization Details LastModified Time None Recorded Advance Directives Directive None Recorded Payers Encounter Date Sequence Insurance Name Policy Number Policy Monet Covered Member ID Monet Member ID Guarantor Name 02/15/2024 1 [place] Desire Marrero [id number] Desire Marrero 02/24/2024 1 [place] Desire Marrero [id number] Desire Marrero 03/02/2024 1 [place] Desire Marrero [id number] Desire Marrero 03/10/2024 1 [place] Desire Marrero [id number] Desire Marrero 03/23/2024 1 [place] Desire Marrero [id number] Desire Marrero OBGyn Episode No OBEpisode recorded.
--- OUTSIDE RECORDS SUMMARY | 2024-03-30 13:02 | XMS_ITS | Encounter Summary ---
Author Organization [employer] Address [address] [facility] [address] 7[address] [place] [address] Care Team Providers Care Casting Machine Set Up Operator Name Role Phone Roberta Burroughs MD Primary Care Pro vider Gonsalo Unger Unavailable Unavailable Reason for Visit * Reason Comments Med Refill Encounter Details Date Type Department Care Team ([facility] st Contact Info) Description 11/10/2022 Refill [facility] [address] [place] [address] Gonsalo Unger FNP Anxious depression Social History Tobacco Use Types Packs/Day Years Used Date Smoking Tobacco: Never Smokeless Tobacco: Never Alcohol Use Standard Drinks/Week Comments Yes 0 (1 standard drink = 0.6 oz pur e alcohol) social Depression Answer Date Recorded Patient Health Questionnaire-9 Score 10 10/30/2022 Housing Stability Answer Date Recorded What is your housing situation today? I have robby cornelius 11/14/[address] you li ve. Do you have problems with any of the following? None of the above 11/14/2022 Food Insecurity Answer Date Recorded Within the past 12 months, y ou worried that your food would run out before you got money to buy more: Never True 11/14/2022 Within the past 12 months,th e food you bought just didn't last and you didn't have enough money to get more: Never True 08/2022 Transportation Answer Date Recorded In the past 12 months, has l ack of transportation kept you from medical appts, meetings, work or from getting things needed for daily living? No 11/14/2022 Utilities Answer Date Recorded In the past 12 months, has t he electric, gas, oil or water company threatened to shut off services in your home? No 11/14/2022 Depression Answer Date Recorded Patient Health Questionnaire-2 Score 3 10/30/2022 Comments Unknown Sex and Gender Information Value Date Recorded Sex Assigned at Female 12/08/2021 10:15 AM EDT Legal Sex Female 10:15 AM EDT Gender Identity Female 12/08/2021 10:15 AM EDT Sexual Orientation Choose not to disclose 2021 10:15 AM EDT documented as of this encounter Miscellaneous Notes * Telephone Encounter - Tia Sepulveda RN - 11/10/2022 2:58 PM EDT TC to pt regarding message below; Clonazepam 0.5mg refill, no answer. 2 more refills left. 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
--- OUTSIDE RECORDS SUMMARY | 2024-03-30 13:02 | XMS_ITS | Continuity of Care Document ---
Author Organization [place] - [facility], Allergy Address [address] [place] [phone] Assessment Encounter Date Assessment Date Assessment LastModified by Organization Details LastModified Time 03/23/2024 03/23/2024 Visit With: KOURTNEY Medina Use [...] Address Organization Details Recorded Time Acute sinusitis [id number] Active 2020 Acute sinusitis , unspecifi ed; Note: Date Diagnosed : 05/10/2020 3:30 PM (J01.90) Not Available [facility] 03:13:59 Deviated nasal septum 653474853 Active 2018 Deviated nasal septum; Note: Date Diagnosed : 07/05/2018 11:43 AM (J34.2) Not Available [facility] 03:13:58 Chronic rhinitis 31846716 Active 2020 Chronic rhinitis; Note: Date Diagnosed : 01/09/2021 3:05 PM (J31.0) Not Available [facility] 4 03:13:58 Headache 70027739 Active 2019 Facial pain NOS; Note: Date Diagnosed : 02/10/2019 1:37 PM (R51) Not Available [facility] 4 03:13:58 Nasal congestio n 72318880 Active 2018 Nasal congestio n; Note: Date Diagnosed : 07/05/2018 11:43 AM (R09.81) Not Available [facility] 4 03:13:58 Polyp of nasal cavity 396243081 Active 2021 Polyp of nasal cavity; Note: Date Diagnosed : 03/13/2021 11:28 AM (J33.0) Not Available [facility] 4 03:13:57 Allergic rhinitis 96677062 Active 2023 Allergic rhinitis: Due to other [...] ; Start Date : 9 Not Available [facility] 4 01:24:27 Otalgia of right ear 8256834706 Active 2019 Otalgia, right ear; Note: Date Diagnosed : 12/11/2019 2:59 PM (H92.01) Not Available [facility] 4 03:13:59 Perennial allergic rhinitis 971885901 Active 2023 LEANNA ACEVEDO [address], [address] , [facility] - [facility] 4 11:04:09 Impacted cerumen in right ear [id number] 93049 Active 2023 ORVILLE PURCELL MD [address] [place] [address], [address] , [facility] - [facility] 4 11:08:25 Problem Notes None recorded. Procedures Surgical History Date Name Laterality Status Provider Name and Address Organization Details Recorded Time 03/23/19 25 Allergy Immunotherapy Injections completed BABS DUNCAN [facility] 100 [facility],[address], [address], [facility] - [facility] 03/23/2024 15:32:40 03/10/19 25 Allergy Immunotherapy Injections completed CHASIDY OLIVIER RN [address],[place], [place], [address], [place] - [facility] 03/10/2024 12:05:52 03/02/19 25 Allergy Immunotherapy Injections completed KOURTNEY MANCINI [address] [facility] [facility],[place], [place], [address], [place] [facility] 03/02/2024 12:02:23 02/23/19 25 Allergy Immunotherapy Injections completed KOURTNEY MANCINI [address],[place] [address], [place], [address], [place] [facility] 02/24/2024 11:30:40 02/14/19 25 Allergy Immunotherapy Injections completed KOURTNEY MEDINA [address],[place] [address] [place] [address], [address], [place] [facility] 02/15/2024 11:08:53 02/09/19 25 Allergy Immunotherapy Injections completed BABS DUNCAN RMA 100 [facility],[place] [address] [place] [address], [address], [place] [facility] 02/10/2024 14:28:06 01/27/20 24 Allergy Immunotherapy Injections completed CHASIDY OLIVIER RN 100 [facility],[place] [address] [place] [address], [address], [facility] - [facility] 01/27/2024 09:07:49 01/20/20 24 Allergy Immunotherapy Injections completed KOURTNEY MANCINI [facility],[place] [address] [place] [address], [address], [facility] - [facility] 01/20/2024 13:36:07 01/13/20 24 Allergy Immunotherapy Injections completed BABS DUNCAN RMA [address] [facility] [address],[place] [address] [place] [address], [address], [place] [facility] 01/13/2024 14:30:51 01/05/20 24 Allergy Immunotherapy Injections completed BABS DUNCAN RMA [address],[place] [address], [place], [address], [place] [facility] 01/05/2024 13:22:16 12/30/19 24 Allergy Immunotherapy Injections completed KOURTNEY MANCINI [address], [place], [address], [place] [facility] 12/30/2023 12:06:22 12/23/19 24 Allergy Immunotherapy Injections completed BABS DUNCAN RMA [address], [place], [address], [place] [facility] 12/23/2023 11:41:23 12/16/19 24 Allergy Immunotherapy Injections completed KOURTNEY MANCINI [address], [place], [address], [place] [facility] 12/16/2023 11:21:05 12/09/19 24 Allergy Immunotherapy Injections completed KOURTNEY MEDINA [address],[place] [address], [place], [address], [place] [facility] 12/09/2023 11:41:30 11/30/19 24 Allergy Immunotherapy Injections completed CHASIDY OLIVIER RN [address] [facility],[place] [address] [place] [address], [address], [place] [facility] 11/30/2023 11:29:17 11/25/19 24 Allergy Immunotherapy Injections completed KOURTNEY MEDINA [address],[place], [place], [address], [place] [facility] 11/25/2023 11:41:02 11/18/19 24 Allergy Immunotherapy Injections completed KOURTNEY MANCINI [address],[place], [place], [address], [place] [facility] 11/18/2023 11:51:54 11/11/19 24 Allergy Immunotherapy Injections completed CHASIDY OLIVIER RN [address] [facility] [facility],[place] [address] [place] [address], [address], [place] [facility] 11/11/2023 09:15:07 11/05/19 24 Allergy Immunotherapy Injections completed KOURTNEY MANCINI [address],[place], [place], [address], [place] [facility] 11/05/2023 12:14:13 10/28/19 24 Allergy Immunotherapy Injections completed BABS KORZEC, RMA [address], [place], [address], [place] [facility] 10/28/2023 14:45:57 10/21/19 24 Allergy Immunotherapy Injections completed LEANNA ACEVEDO RMA [address], [place], [address], [place] [facility] 10/21/2023 11:41:17 10/08/19 24 Allergy Immunotherapy Injections completed BABS DUNCAN, RMA [address], [place], [address], [place] [facility] 10/08/2023 11:33:35 10/01/19 24 Allergy Immunotherapy Injections completed LEANNA ACEVEDO RMA [address], [place], [address], [place] [facility] 10/01/2023 10:32:59 09/23/19 24 Allergy Immunotherapy Injections completed LEANNA ACEVEDO RMA [address], [place], [address], [place] [facility] 09/23/2023 13:46:52 09/16/19 24 Allergy Immunotherapy Injections completed BABS DUNCAN RMA [address], [place], [address], [place] [facility] 09/16/2023 14:07:22 09/09/19 24 Allergy Immunotherapy Injections completed CHASIDY OLIVIER RN [address],[place] [address], [place], [address], [place] [facility] 09/09/2023 12:03:04 09/02/19 24 Allergy Immunotherapy Injections completed BABS KEMPC, RMA [address], [place], [address], [place] [facility] 09/02/2023 11:46:51 08/26/19 24 Allergy Immunotherapy Injections completed BABS GOODRICHZEC, RMA [address],[place] [address], [place], [address], [place] [facility] 08/26/2023 13:11:56 08/19/19 24 Allergy Immunotherapy Injections completed CHASIDY OLIVIER RN [address], [place], [address], [facility] - [facility] 08/19/2023 14:02:06 08/10/19 24 Allergy Immunotherapy Injections completed BABS DUNCAN RMA [address], [place], [address], [place] [facility] 08/10/2023 15:12:45 08/04/19 24 Allergy Immunotherapy Injections completed BABS DUNCAN RMA [address] [facility] [address], [place], [address], [place] [facility] 08/04/2023 12:15:15 08/04/19 24 Cerumen removal without microscope completed ORVILLE PURCELL MD [address] [facility] [address],[place] [address], [place], [address], [facility] - [facility] 08/04/2023 11:08:52 07/28/19 24 Allergy Immunotherapy Injections completed KOURTNEY MANCINI [address] [facility] [address] [facility], [place], [address], [facility] - [facility] 07/28/2023 15:01:20 07/20/19 24 Allergy Immunotherapy Injections completed BABS DUNCAN RMA [address] [facility] [address],[place] [address] [place] [address], [address], [facility] - [facility] 07/20/2023 14:23:42 07/13/19 24 Allergy Immunotherapy Injections completed KOURTNEY MANCINI [address] [facility] [address], [place], [address], [facility] - [facility] 07/13/2023 13:59:55 07/06/19 24 Allergy Immunotherapy Injections completed KOURTNEY MANCINI [address] [facility] [address],[place] [address] [place] [address], [address], [facility] - [facility] 07/06/2023 12:17:36 06/29/19 24 Allergy Immunotherapy Injections completed KOURTNEY MANCINI [address] [facility] [address],[place] [address], [place], [address], [place] [facility] 06/29/2023 11:04:40 Imaging Results None recorded. Procedure Notes None recorded. Medical Equipment None Reported. Medications Name Sig Start Date Stop Date Status Note LastModified by Organization Details LastModified Time prednison e 10 mg tablet Take as directed 2022 active Medicati on ID: [id number] D uration Value: 12 Brand Name: predniso [...] % shampoo 2021 active Medicati on ID: [id number] B rand Name: ketocona zole Sen d [...] eye drops 06/16 completed Medicati on ID: [id number] B rand Name: ketotife n fumarate Send [...] eye drops 2021 active Medicati on ID: [id number] B rand Name: kassilyn Send Method: E-Prescr ibed Sub s Allowed: subs [place] Speci al Instruct ion: INSTILL 1 DROP 4 TIMES A DAY INTO AFFECTED EYE NEEDED M edelvatio nGeneric Name: cromolyn Not Available Not Available [...] a day 2021 active Medicati on ID: [id number] D uration Value: 7 Brand Name: ofloxaci [...] mg tablet 03/13 completed Medicati on ID: [id number] D uration Value: 15 Brand Name: lorazepa m Send Method: E-Prescr ibed Sub s Allowed: subs [place] Speci al Instruct ion: TAKE 1 TABLET TWICE DAILY NEEDED M edicatio nGeneric Name: lorazepa m Not Available Not Available Not Available cyanocoba santy (vit B-12) 500 mcg tablet 06/16 completed Medicati on ID: [id number] B rand Name: cyanocob alamin (vitamin B-12) Se nd Method: E-Prescr ibed Sub s Allowed: subs KALIE Askew al Instruct ion: TAKE 1 TABLET BY [...] spray aerosol 06/16 completed Medicati on ID: [id number] B rand Name: triamcin olone acetonid e [...] as directed 2021 active Medicati on ID: [id number] D uration Value: 30 Prescri bed By [...] 1 tablet 2021 active Medicati on ID: [id number] D uration Value: 14 Prescri bed By [...] mg tablet 03/13 completed Medicati on ID: [id number] B rand Name: Fiber-La x Send Method: [...] unit) capsule 03/13 completed Medicati on ID: [id number] D uration Value: 30 Brand Name: Vitamin [...] extended release 2021 active Medicati on ID: [id number] B rand Name: bupropio n HCl Send [...] HFA aerosol inhaler active Medicati on ID: [id number] B rand Name: Symbicor t Send Method: [...] SNOMED-CT Code Diagnosis ICD10 Code Diagnosis Note [id number] LEANNA ACEVEDO Sergio Allergy [address] [place] [address] 02/24/2024 11:29:38 02/24/2024 11:31:30 Perennial allergic rhinitis [id number] J30.89 90445 LEANNA ACEVEDO FOR[facility]LY [facility], [facility] Allergy [address] [place] [address], [place] [address] 03/02/2024 12:01:42 03/02/2024 12:02:49 Perennial allergic rhinitis [id number] J30.89 52022 CHASIDY OLIVIER RN Allergy [address] [place] [address] [place] [address] 03/10/2024 12:04:55 03/10/2024 12:06:11 Perennial allergic rhinitis [id number] J30.89 35752 BABS KEMP RMA Allergy 100 [facility] 100 [facility] BOBBY HEYDI [address] 03/23/2024 15:32:06 03/23/2024 15:33:20 Perennial allergic rhinitis [id number] J30.89 Health Concerns Section Related Observation LastModified by Organization Detai ls LastModified Time None Recorded Concern Status LastModified by Organization Details LastModified Time None Recorded Payers Encounter Date Sequence Insurance Name Policy Number Policy Monet Covered Member ID Monet Member ID Guarantor Name 03/23/2024 1 [place] [facility] Desire Marrero [id number] Desire Marrero OBGyn Episode No OBEpisode recorded.
--- OUTSIDE RECORDS SUMMARY | 2024-03-30 13:02 | XMS_ITS | Encounter Summary ---
Author Organization [employer] Address 75 [facility] 7t [place] [address] Care Team Providers Care Head Of Marketing Analytics Name Role Phone Vida Van Primary Care Provider [phone] Roberta Burroughs MD Primary Care Pro vider Gonsalo Unger Unavailable Unavailable Encounter Details Date Type Department Care Team (Late st Contact Info) Description 02/04/2022 Telephone [facility] MEDICINE [address] [place] [address] Vida Van FNP 75 [facility] Dept [place] [address] Social History Tobacco Use Types Packs/Day Years Used Date Smoking Tobacco: Never Smokeless Tobacco: Never PHQ-2 Answer Date Recorded Patient Health Questionnaire-2 Score 6 01/13/2022 Comments Unknown Sex and Gender Information Value Date Recorded Sex Assigned at Female 12/08/2021 10:15 AM EDT Legal Sex Female 10:15 AM EDT Gender Identity Female 12/08/2021 10:15 AM EDT Sexual Orientation Choose not to disclose 2021 10:15 AM EDT COVID-19 Exposure Response Date Recorded In the last 10 days, have yo u been in contact with someone who was confirmed or suspected to have Coronavirus/COVID-19? No / Unsure 02/05/2022 10:28 AM EST documented as of this encounter Plan of Treatment Not on file documented as of this encounter Visit Diagnoses Not on filedocumented in this encounter Additional Health Concerns Assessment Noted Time PHQ-9 Depression Total Score: 20 022 2:35 PM EST documented as of this encounter Care Teams Head Of Marketing Analytics Relationship Specialty Start Date End Date Vida Van FNP PCP - General Family Medicine 10/06/21 08/04/22 Roberta Burroughs MD [address] [place], [place] [id number] PCP - General Internal Medicine 08/05/22 Gonsalo Unger FNP [address] [place] [address] Nurse Practitioner Family Medicine 12/28/22 documented as of this encounter
--- OUTSIDE RECORDS SUMMARY | 2024-03-30 13:02 | XMS_ITS | Encounter Summary ---
Author Organization [employer] Address 75 [facility] 7t [place] [address] Care Team Providers Care Sewer And Inspector Name Role Phone Roberta Burroughs MD Primary Care Pro vider Gonsalo Unger Unavailable Unavailable Reason for Visit * Reason Comments Med Refill Encounter Details Date Type Department Care Team (Late st Contact Info) Description 11/10/2022 Refill [facility] MEDICINE [address] [place] [address] Vida Van FNP [address] [place] [address] Dept [place] [address] Seasonal allergic rhinitis due to pollen Social History Tobacco Use Types Packs/Day Years [...] as of this encounter Visit Diagnoses Diagnosis Seasonal allergic rhinitis due to pollen documented in this encounter Additional Health Concerns Assessment Noted Time PHQ-9 Depression Total Score: 10 023 2:49 PM EDT documented as of this encounter Care Teams Sewer And Inspector Relationship Specialty Start Date End Date Roberta Burroughs MD [address] [place] [address] PCP - General Internal Medicine 08/05/22 Gonsaol Unger FNP [address] [place] [address] Nurse Practitioner Family Medicine 12/28/22 documented as of this encounter
--- OUTSIDE RECORDS SUMMARY | 2024-03-30 13:02 | XMS_ITS | Clinical Summary ---
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 12/11/19 22 Active sodium chloride ([place]) 0.65 % nasal spray use as needed for nasal congestion 10/12/19 21 Active Blood Pressure Monitoring (Blood Pressure Kit) deviceIndications: Elevated BP without diagnosis of hypertension 1 each in the morning. 1 each 01/14/20 22 Active Misc. Devices (Pulse Oximeter) miscIndications:Mi ld persistent asthma without complication 1 each if needed each day (Shortness of breath). 1 each 01/14/20 22 Active levothyroxine (Tirosint) 137 MCG capsuleIndications :Acquired hypothyroidism Take 1 capsule (137 mcg) by mouth before breakfast. 30 capsule 2 01/14/20 22 Active lidocaine (Lidoderm) 5 % patchIndications:C hronic pain of both shoulders Apply 1 patch topically in the morning. apply 1 patch by transdermal route 2 times every day (May wear up to 12hours.) 30 patch 2 01/14/20 22 Active valACYclovir (Valtrex) 500 MG tabletIndications: Herpes simplex Take 1 tablet (500 mg) by mouth in the morning. 30 tablet 2 01/14/20 22 Active ketoconazole (NIZOral) 2 % shampooIndications :Seborrheic dermatitis of scalp USE TO WASH HAIR TWICE WEEKLY AT LEAST 3 DAYS APART 120 mL 1 02/04/20 22 Active ketotifen (Zaditor) 0.025 % ophthalmic solutionIndication s:Seasonal allergic rhinitis due to pollen USE 1 DROP IN EACH EYE TWICE DAILY 5 mL 1 03/12/19 23 Active Diclofenac Sodium (Voltaren) 1 % gelIndications:Chr onic pain of both shoulders,Neck pain Apply 2 g topically if needed in the morning and at bedtime (muscle pain). 100 g 3 05/29/19 23 Active topiramate 50 MG tabletIndications: Medication overuse headache TAKE 1 TABLET BY MOUTH TWICE DAILY 60 tablet 1 08/31/19 23 Active amitriptyline (Elavil) 25 MG tabletIndications: Medication overuse headache TAKE 2 TABLETS BY MOUTH EVERY DAY AT BEDTIME 60 tablet 1 08/31/19 23 Active Advair Diskus 250-50 MCG/ACT aerosol powder INHALE 1 PUFF BY MOUTH TWICE DAILY RINSE MOUTH AFTER USING. 04/01/19 24 Active ferrous gluconate (Fergon) 324 (38 Fe) MG tablet Take 1 tablet (324 mg) by mouth 2 (two) times a week. 90 tablet 06/07/19 24 025 Active FT Stool Softener 50-8.6 MG tablet TAKE 1 TABLET BY MOUTH ONCE DAILY 90 tablet 07/27/19 24 Active cyanocobalamin (Vitamin B-12) 1000 MCG tabletIndications: Cobalamin deficiency TAKE 1 TABLET BY MOUTH ONCE DAILY 90 tablet 1 10/01/19 24 Active clonazePAM (KlonoPIN) 0.5 MG tabletIndications: Anxious depression Take 1 tablet (0.5 mg) by mouth every 12 (twelve) hours. 60 tablet 1 10/06/19 24 Active Fluocinolone Acetonide Scalp 0.01 % oilIndications:Igor orrheic dermatitis of scalp APPLY A THIN LAYER TO DAMP SCALP, MASSAGE WELL and COVER. LEAVE ON FOR 4 HOURS OR OVERNIGHT THEN WASH OFF 118.28 mL 1 11/23/19 24 Active olmesartan (BENIcar) 20 MG tabletIndications: Essential hypertension TAKE 1 TABLET BY MOUTH ONCE DAILY 90 tablet 1 12/22/19 24 Active SUMAtriptan (Imitrex) 50 MG tablet TAKE 1 TABLET AT ONSET OF MIGRAINE, MAY REPEAT DOSE IN 4 HOURS IF NEEDED *MAX 2 TABLETS DAILY* Active acyclovir (Zovirax) 5 % ointmentIndication s:Herpes simplex Apply topically 6 (six) times a day. Space applications every 3 hours. 15 g 2 01/04/20 24 Active fluticasone (Flonase Allergy Relief) 50 MCG/ACT nasal spray Administer 1 spray into each nostril 2 times daily. Shake gently. Before first use, prime pump. After use, clean tip and replace cap. 16 g 01/04/20 24 025 Active sodium chloride ([place]) 0.65 % nasal spray Administer 1 spray into each nostril if needed for congestion. 15 mL 2 01/04/20 24 025 Active meclizine (Antivert) 25 MG tabletIndications: Dizziness Take 1 tablet (25 mg) by mouth if needed in the morning, at noon, and at bedtime for dizziness. 30 tablet 2 01/04/20 24 Active ibuprofen 800 MG tabletIndications: Chronic pain of both shoulders Take 1 tablet (800 mg) by mouth if needed each day for moderate pain. 30 tablet 01/04/20 24 Active cholecalciferol (Vitamin D-3) 125 MCG (5000 UT) capsule Take 1 capsule (125 mcg) by mouth Once per day. 90 capsule 1 01/04/20 24 Active montelukast (Singulair) 10 MG tabletIndications: Mild persistent asthma without complication TAKE 1 TABLET BY MOUTH EVERY DAY IN THE MORNING 90 tablet 1 01/19/20 24 Active cetirizine (ZyrTEC) 10 MG tabletIndications: Seasonal allergic rhinitis due to pollen TAKE 1 TABLET BY MOUTH ONCE DAILY NEEDED FOR ALLERGIES 90 tablet 1 01/19/20 24 Active traZODone (Desyrel) 100 MG tablet TAKE 1 TABLET AT BEDTIME 90 tablet 01/19/20 24 Active buPROPion XL (Wellbutrin XL) 300 MG 24 hr tabletIndications: Anxious depression TAKE 1 TABLET EVERY MORNING 90 tablet 01/19/20 24 Active albuterol (Ventolin HFA) 108 (90 Base) MCG/ACT inhalerIndications :Mild persistent asthma without complication Inhale 2 puffs every 4 (four) hours if needed for wheezing or shortness of breath. 18 g 3 02/10/19 25 Active Tirzepatide-Weight Management 2.5 MG/0.5ML solution auto-injector Inject 0.5 mL (2.5 mg) under the skin 1 (one) time per week. Start Zepbound 2.5 mg weekly for 4 to 6 weeks and then increase to 5 mg weekly if tolerating 2 mL 1 01/04/20 24 025 Active Problems Problem Noted Date Diagnosed Date Acute non-recurrent maxillary sinusitis 02/10/19 Assessment & Plan (02/11/2024 2:36 PM EST): Drink plenty of fluids and rest Augmentin for 7 days Acetaminophen PRN Hepatic lesion 10/06/2023 Hand pain 10/06/2023 Easy bruising 06/04/2023 Asthma 10/31/2022 Hirsutism 10/31/2022 Intrauterine contraceptive device 08/05/2022 Tachyarrhythmia 08/05/2022 Class 3 severe obesity due t o excess calories with serious comorbidity and body mass index (BMI) of 40.0 to 44.9 in adult 08/05/2022 Essential hypertension 06/08/2022 Numbness and tingling in both hands 06/08/2022 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 Patient has been somewhat depressed and anxious. Says she has been taking meds as directed (only skipping days occasionally) although prescription monitoring program reflects no recent dispenses. Since this provider will be retiring, patient has been scheduled for intake with prescriber at her outpatient agency, [facility]. Meanwhile, will continue Wellbutrin XL 300 mg daily, Trazodone 100 mg at bedtime, Clonazepam 0.5 mg BID. Also meds per Neurologist Amitriptyline 25 mg 2 tabs at bedtime and Topiramate 50 mg twice daily are also likely helping her mood and her insomnia. F/U with therapist as usual. She agrees with the plan. Assessment & Plan (01/11/2023 4:06 PM EST): Low cognition, limited insight. Has been out of medications. Resume now Wellbutrin XL 150 mg daily, Trazodone 100 mg at bedtime, Clonazepam 0.5 mg BID. Also meds per Neurologist Amitriptyline 25 mg 2 tabs at bedtime and Topiramate 50 mg twice daily are also likely helping her mood and her insomnia. F/U with therapist as usual. Today 01/11/2023 provider informed pt that I would be retiring in approximately 1/2 year, and suggest she speak with therapist about referral to agency psychiatric prescriber. Meanwhile, F/U with me in 2 months. To request letter with diagnosis and medications, she needs to go to [facility] and sign PONCE. She agrees with the plan. Assessment & Plan (03/17/2022 4:01 PM EST): Low cognition, limited insight. Not doing as well recently with increased life stressors. Will increase to Wellbutrin XL 300 mg once daily. Continue Trazodone 100 mg at bedtime (recently increased by her Neurologist), Clonazepam 0.5 mg BID. Also meds per Neurologist Amitriptyline 25 mg 2 tabs at bedtime and Topiramate 50 mg twice daily are also likely helping her mood and her insomnia. F/U with therapist, and F/U with me in 6-8 weeks. She agrees with the plan. Health care maintenance 01/21/2022 Seborrheic dermatitis of scalp 01/21/2022 Hypothyroidism 12/24/2014 Overview (08/05/2022): Care managed by [facility] Dr. Heber Murdock Last visit around 07/15/22 Recent Thyroid labs ordered by specialist WNL Continue Tirsosint 137 mcg daily Next appt in 09/2022 Assessment & Plan (08/05/2022 10:47 PM EDT): Continue Thyroid dose No adjustment F/u w/ specialist Cobalamin deficiency 12/24/2014 Shoulder pain 12/24/2014 Allergic rhinitis 08/06/2014 Assessment & Plan (08/05/2022 10:50 PM EDT): Concern about new sinus pressure Will Rx short burst of prednisone to reduce inflammation Educated pt to continue all allergy meds. RTC if sinus pressure worsens or rebounds after prednisone. Discussed risks of chronic prednisone use. Last course of steroid PO was about 3 months ago per the pt. F/u with specialist Mood disorder 08/06/2014 Chronic constipation 04/03/2013 Migraine with aura 09/15/2011 Herpes simplex 07/21/2011 Overview (08/05/2022): Recurrent cold sores Assessment & Plan (08/05/2022 10:51 PM EDT): Refill acyclovir ointment use PRN for lesions around mouth Takes Valcyclovir 500mg daily PRN for prevention Followup 2 months with new PCP Resolved Problems Problem Noted Date Diagnosed Date Resolved Date Depression 08/05/2022 10/31/2022 Neck pain 06/08/2022 10/31/2022 Acute bacterial rhinosinusitis 04/02/2022 08/05/2022 Assessment & Plan (04/02/2022 1:49 PM EST): Pt with c/o severe right sided forntal and maxillary tenderness as well as sever congestion and nasal discharge. Pt has a hx of recurrent sinusitis. Unfortunately her living specialist recently retired and she is awaiting to see a new one. Plan: Continue Zyrtec. Start Augmentin BID x 7 days F/u with new living specialist Environmental and seasonal allergies 04/02/2022 10/31/2022 Overview (08/05/2022): Care managed by [facility] Receives allergy shots Assessment & Plan (08/05/2022 10:49 PM EDT): Concern about new sinus pressure Will Rx short burst of prednisone to reduce inflammation Educated pt to continue all allergy meds. RTC if sinus pressure worsens or rebounds after prednisone. Discussed risks of chronic prednisone use. Last course of steroid PO was about 3 months ago per the pt. F/u with specialist Assessment & Plan (04/02/2022 1:51 PM EST): Sever, had been receiveing immunotherapy in the past unfortunatelly living specialist retired and she was unable to contine. Her nasal congestion is preventing her from sleeping. On exam she has significant turbinate erythema. She is already using otc Afrin and nasal steroids with no good results as well as daily antihistaminics Plan: Medrol dose pack while she sees her living specialist again to give her relief Exposure to COVID-19 virus 04/02/2022 0 08/05/2022 Vitamin D deficiency 01/28/2022 023 Medication overuse headache 01/21/2022 10/31/2022 Mild persistent asthma without complication 01/13/2022 10/31/2022 Obesity 09/15/2011 10/31/2022 Overview (08/05/2022): Chronic concern about weight. Has tried lifestyle changes. Hypothyroidism controlled A1c 4.9 on 01/14/22, not diabetic Assessment & Plan (08/05/2022 10:54 PM EDT): Discussed that pt does not need glucometer since she does not have diabetes or prediabetes Would benefit from weight mgmt Will refer Followup 2 months with new PCP Encounters Date Type Department Care Team Description 02/22/2024 Telephone [facility] [address] [place] [address] [phone] Ansley Jorge, RN Results 02/11/2024 1:20 PM EST Office Visit [facility] [address] [place] [address] [phone] Roberta Grubbs MD Acute non-recurrent maxillary sinusitis (Primary Dx); Viral URI; Mild persistent asthma without complication 01/19/2024 Refill [facility] [address] [place], [place] [phone] Roberta Burroughs MD Mild persistent asthma without complication; Seasonal allergic rhinitis due to pollen; Anxious depression 01/05/2024 Telephone [facility] [address] [place] [address] [phone] Roberta Burroughs MD Prior Authorization (PA for Tirzepatide-Weight Management 2.5 MG/0.5ML/) 01/04/2024 2:30 PM EST Office Visit [facility] [address] [place] [address] [phone] Roberta Burroughs MD Mood disorder ([facility]) (Primary Dx); Herpes simplex; Dizziness; Chronic pain of both shoulders; Health care maintenance; Easy bruising; Postablative hypothyroidism; Class 3 severe obesity due to excess calories with serious comorbidity and body mass index (BMI) of 40.0 to 44.9 in adult ([facility]); Essential hypertension; Moderate asthma, unspecified whether complicated, unspecified whether persistent; Seasonal allergic rhinitis due to pollen 01/04/2024 Travel 12/30/2023 Telephone [facility] [address] [place] [phone] Мария Bello MA chart prep from Last 3 Months Immunizations Name Administration Dates Next Due DT (pediatric) 07/06/1984,05/06/1984,03/04/1984 DTaP 09/22/1988,09/11/1985 Hep B, adult 12/16/2011, 6,07/19/1995,1995 Influenza injectable quadriv alent IIV4 with preservative 02/05/2022,2014 Influenza injectable quadriv alent preservative free 12/02/2022,01/24/2021,12/12/2019,2019,01/22/2016 Influenza, IIV3, injectable 11/06/2013, 1 Influenza, Split (incl. everton fied surface antigen) 02/14/2013,12/16/2011 Influenza, seasonal, injecta ble, preservative free 12/10/2023 Moderna Covid-19 Vaccine 12+ 07/12/2020,06/15/19 21 Tdap 04/08/2023,04/03/2013 Family History Medical History Relation Name Comments Pancreatic cancer Father HTN,DM2 Mother Relation Name Status Comments Father Mother Social History Tobacco Use Types Packs/Day Years Used Date Smoking Tobacco: Never Smokeless Tobacco: Never Tobacco Cessation:Counseling Given: Not Answered Alcohol Use Standard Drinks/Week Comments Yes 0 (1 standard drink = 0.6 oz pur e alcohol) social Depression Answer Date Recorded Patient Health Questionnaire-9 Score 17 10/06/2023 Patient Health Questionnaire-9 Score 17 10/06/2023 Last PHQ-9: Questionnaire Data Not on file 0 10/06/2023 Housing Stability Answer Date Recorded What is your housing situation today? I have robby cornelius 10/06/[address] you li ve. Do you have problems with any of the following? Inadequate heat 10/06/2023 Food Insecurity Answer Date Recorded Within the past 12 months, y ou worried that your food would run out before you got money to buy more: Sometimes True 2023 Within the past 12 months,th e food you bought just didn't last and you didn't have enough money to get more: Sometimes True 10/06/2023 Transportation Answer Date Recorded In the past 12 months, has l ack of transportation kept you from medical appts, meetings, work or from getting things needed for daily living? No 06/04/2023 Utilities Answer Date Recorded In the past 12 months, has t he electric, gas, oil or water company threatened to shut off services in your home? Yes 10/06/2023 Depression Answer Date Recorded Patient Health Questionnaire-2 Score 5 10/06/2023 Internet Access Answer Date Recorded Internet Access Q1 No 10/11/2023 Internet Access Q2 Not on file 10/11/2023 Comments No Sex and Gender Information Value Date Recorded Sex Assigned at Female 12/08/2021 10:15 AM EDT Legal Sex Female 10:15 AM EDT Gender Identity Female 12/08/2021 10:15 AM EDT Sexual Orientation Choose not to disclose 2021 10:15 AM EDT Last Filed Vital Signs Vital Sign Reading Time Taken Comments Blood Pressure 133/83 02/11/2024 1:20 PM EST Pulse 68 02/11/2024 1:20 PM EST Temperature 36.8 ??C (98.3 ??F) 02/11/2024 1:20 PM ES T Respiratory Rate 16 02/11/2024 1:20 PM EST Oxygen Saturation 99% 02/11/2024 1:20 PM EST Inhaled Oxygen Concentration - - Weight 101 kg (221 lb 12.8 oz) 02/11/2024 1:20 P M EST Height 160 cm (5' 3 ) 01/04/2024 2:34 PM EST Body Mass Index 39.29 01/04/2024 2:34 PM EST Plan of Treatment Health Maintenance Due Date Last Done Comments Alcohol/Substance Use Screening 1995 Family Planning (PISQ) 10/24/1998 Hepatitis A Vaccines (1 of 2 - Risk 2-dose series) 10/24/2002 Pneumococcal Vaccine: Pediatrics (0 to 5 Years) and At-Risk Patients (6 to 49) Years) (1 of 2 - PCV) 10/24/2002 COVID-19 Vaccine (3 - season) 2023 07/12/2020, 06/14/2020 Depression Monitoring (PHQ-9) 04/07/2024 10/06/2023, 10/06/2023 Depression Screening 10/05/2024 10/06/2023, 10/06/19 SDOH Screening 10/05/2024 10/06/2023 Tobacco Screening 01/03/2025 01/04/2024 Mammogram 02/10/2025 02/10/2023, 02/10/2023 Cervical Cancer Screening 01/13/2028 HPV/Cotest 01/13/2028 Pap Smear 01/13/2028 01/12/2023 Lipid Panel 12/09/2028 12/10/2023, 07/2022, 01/14/2022, Additional history exists DTaP/Tdap/Td Vaccines (5 - Td or Tdap) 04/07/2033 04/08/2023, 04/03/2013, 09/22/1988, Additional history exists Zoster Vaccines (1 of 2) 10/24/2033 RSV Patients and Patients Aged 60 years or older (1 - 1-dose 75+ series) 10/24/2058 Hepatitis B Vaccines Completed 12/16/2011, 01/21/1996, 07/19/1995, Additional history exists HIV Screening Completed 12/10/2023, 1007/2022, 01/14/2022 Hepatitis C Screening Completed 12/10/2023 , 11/13/2022, 01/14/2022 Influenza Vaccine Completed 12/10/2023, , 02/05/2022, Additional history exists HIB Vaccines Aged Out No longer eligi ble based on patient's age to complete this topic HPV Vaccines Aged Out No longer eligi ble based on patient's age to complete this topic IPV Vaccines Aged Out No longer eligi ble based on patient's age to complete this topic Meningococcal Vaccine Aged Out No sony amelia eligible based on patient's age to complete this topic RSV under 20 months Aged Out No longe r eligible based on patient's age to complete this topic Rotavirus Vaccines Aged Out No longer eligible based on patient's age to complete this topic Procedures Procedure Name Priority Date/Time Associated Diagnosis Comments POCT INFLUENZA B (ID NOW RAPID MOLECULAR) Routine 02/11/2024 1:41 PM EST Viral URI POCT INFLUENZA A (ID NOW RAPID MOLECULAR) Routine 02/11/2024 1:41 PM EST Viral URI POCT RAPID STREP A Routine 02/11/2024 1: 41 PM EST Viral URI POCT RAPID COVID ANTIGEN Routine 02/11/2024 1:41 PM EST Viral URI HEPATITIS C AB W/REFL TO HCV RNA, QN, PCR Routine 12/10/2023 11:55 AM EDT Annual physical exam HIV 1/2 ANTIGEN/ANTIBODY, FOURTH GENERATION W/RFL Routine 12/10/2023 11:55 AM EDT Annual physical exam LIPID PANEL, STANDARD Routine 12/10/2023 11:53 AM EDT Annual physical exam BI MAMMOGRAM DIAGNOSTIC TOMOSYNTHESIS BILATERAL Routine 02/10/2023 2:24 PM EST PAP SMEAR Routine 01/12/2023 9:41 AM EST from Last 3 Months or Most Recently Relevant to Health Maintenance Results * Influenza B (ID NOW Rapid Molecular) (02/11/2024 1:41 PM EST) Influenza B Negative Negative, Indeterminate [facility] Swab 02/11/2024 1:41 PM EST us Roberta Motley MD POINT OF CARE TEST EN TER/EDIT ORDERABLES Final Result [facility] [address] [place] [address] [phone] * Influenza A (ID NOW Rapid Molecular) (02/11/2024 1:41 PM EST) Pathologist [facility] Influenza A Negative Negative, Indeterminate [facility] Swab 02/11/2024 1:41 PM EST us Roberta Motley MD POINT OF CARE TEST EN TER/EDIT ORDERABLES Final Result Performing Organization Address [facility] Co de Phone Number [facility] [address] [place] [address] [phone] * POCT Rapid COVID Ag (02/11/2024 1:41 PM EST) [facility] Rapid COVID Ag Negative [facility] Swab 02/11/2024 1:41 PM EST us Roberta Motley MD POINT OF CARE TEST EN TER/EDIT ORDERABLES Final Result Performing Organization Address [facility] Co de Phone Number [facility] [address] [place] [address] [phone] * POCT rapid strep A manually resulted (02/11/2024 1:41 PM EST) [facility] Rapid Strep A Screen Negative Negative, None Detected [facility] Swab 02/11/2024 1:41 PM EST us Roberta Motley MD POINT OF CARE TEST EN TER/EDIT ORDERABLES Final Result Performing Organization Address [facility] Co de Phone Number [facility] [address] [place] [address] [phone] * Hepatitis C Antibody with Reflex to HCV, RNA, Quantitative, Real-Time PCR (12/10/2023 11:55 AM EDT) Hepatitis C Antibody Nonreactive Nonreactive [facility] Comment:Antibodies to HCV no t detected; does not exclude early acuteHCV infection. Blood Venous blood specimen / Unknown 12/10/2023 11:55 AM EDT 12/10/2023 1:25 PM EDT Roberta Acuna MD LAB BLOOD ORDERAB LES Final Result Performing Organization Address City/[facility]/ZIP Co de Phone Number [facility] [address] [place] [address] [phone] * HIV-1/2 Antigen and Antibodies, Fourth Generation, with Reflexes (12/10/2023 11:55 AM EDT) Pathologist [facility] HIV AB/AG Nonreactive Nonreactive [facility] Comment:HIV-1 p24 Ag and/or HIV-1/HIV-2 Ab not detected.A test result that is nonreactive does not exclude thepossibility of exposure to or infection with HIV-1 and/orHIV-2. Nonreactive results in this assay for individualswith prior exposure to HIV-1 and/or HIV-2 may be due toantigen and antibody levels that are below the limit ofdetection of this assay.The [employer] HIV Ag/Ab Combo assay result andsupplemental assay results should be interpreted inconjunction with the patient's clinical presentation,history and other laboratory results. If the results areinconsistent with clinical evidence, additional testing issuggested to confirm the result. Blood Venous blood specimen / Unknown 12/10/2023 11:55 AM EDT 12/10/2023 1:25 PM EDT us Roberta Acuna MD LAB BLOOD ORDERAB LES Final Result Performing Organization Address [facility]/ZIP Co de Phone Number [facility] [address] [place] [phone] * (ABNORMAL) Lipid Panel, Standard (12/10/2023 11:53 AM EDT) Triglycerides 49 <150 mg/dL [facility] Comment:Desirable Triglyceri de: less than 150 mg/dLBorderline High Triglyceride 150-199 mg/dLHigh Triglyceride: 200-499 mg/dLVery High Triglyceride: greater than or equal to 5OO mg/dL Cholesterol 163 <200 mg/dL [facility] Comment:Desirable Cholestero l: less than 200 mg/dLBorderline High Cholesterol: 200-239 mg/dLHigh Cholesterol: greater than 239 mg/dL LDL Cholesterol Calculated 100(H) <100 mg/dL [facility] Comment:Desirable LDL: less than 100 mg/dLNear Optimal/Above Optimal LDL: 110- 129 mg/dLBorderline High LDL: 130-159 mg/dLHigh LDL: 160-189 mg/dLVery High LDL: greater than or equal to 190 mg/dL HDL Cholesterol 54 >40 mg/dL [facility] Comment:Desirable HDL: great er than 40 mg/dL Note: This HDL assay may give artificially low results in patients with liver disease. Blood Venous blood specimen / Unknown 12/10/2023 11:53 AM EDT 12/10/2023 1:25 PM EDT Roberta Acuna MD LAB BLOOD ORDERAB LES Final Result [facility] [address] [place] [phone] * BI Mammogram Diagnostic Tomosynthesis Bilateral (02/10/2023 2:24 PM EST) Anatomical Region Laterality Modality Breast Bilateral Mammography 02/10/2023 2:24 PM EST Narrative 02/10/2023 4:28 PM EST ? [facility] [place] ? 2 [address] ?[place] [address] ? Mammography Report ? Signed ? Patient: Marrero Eamon,Desire ?MR#: ?? [id number] ? : 1985 ?Acct:[id number] ? Age/Sex: 37 / F ?ADM Date: /03/24 ? Loc: HO.MAMMO ? Attending Dr: Sparkle Maldonado CNM ? Ordering Physician: Sparkle Maldonado CNM ?Results: 1Nega ?? tive ? Date of Service: 02/10/23 ?Follow Up: 1 Year From Orig ?? inal Mammogram ? Procedure(s): MM tomosynthesis diagnostic BI ?? Accession Number(s): [id number] ? cc: Sparkle Maldonado CNM; Roberta Burroughs MD ? EXAMINATION: ?? MM DIAGNOSTIC DIGITAL BREAST TOMOSYNTHESIS, BILATERAL ?? US BREAST LIMITED, RIGHT ? MAMMOGRAPHY: ?? CLINICAL INFORMATION: ? 37-year-old female complaining of right breast pain spanning 10-12 ?? o'clock axis. ? COMPARISON: ?? Mammography: None. Baseline exam. ? TECHNIQUE: ?? Digital breast tomosynthesis is performed in both the craniocaudal and ?? mediolateral oblique views along with computer-aided detection (CAD). ?? Synthesized 2D images are generated from the tomosynthesis. ? FINDINGS: ?? The breasts are heterogeneously dense, which may obscure small masses ?? (ACR BI-RADS breast composition Category c). ? There are no significant masses, abnormal calcifications, or other ?? abnormalities, in either breast. ?? The area of breast pain at the 10-12 ?? o'clock region demonstrates no mammographic abnormality. There are no ?? skin or axillary changes. ? ULTRASOUND: ?? CLINICAL INFORMATION: ?? 37-year-old female complaining of right breast pain spanning 10-12 ?? o'clock axis. ? COMPARISON: ?? None ? TECHNIQUE: ?? Targeted sonographic evaluation was performed using a high frequency ?? linear transducer. Attention was given to the region of pain spanning ?? the 9:00 to 2:00 axis right breast. Selected archived documentation. ? FINDINGS: ? RIGHT BREAST: There is a mixture of fatty and fibroglandular tissue. ?? No suspicious mass is seen. ??There is no pathologic acoustic shadowing. ?? There are no cystic abnormalities. ? MM/MM tomosynthesis diagnostic BI ?? IMPRESSION: ?? No findings suspicious for malignancy. ? No mammographic or sonographic correlate to the region of breast pain ?? within the right breast spanning the 10-12 o'clock axis. Recommend ?? clinical management. ? OVERALL ASSESSMENT: ?? Mammography: BI-RADS 1 - Negative ?? Ultrasound: BI-RADS 1 - Negative ? RECOMMENDATION: ?? 1. Patient should be managed based on the clinical impression. ? 2. Otherwise, routine annual screening mammography in one year. ? Results were provided to the patient at time of visit by the ?? technologist. ? This patient's information was entered into a reminder system with a ?? target due date for their next mammogram. ? Dictated By: ?Mejia Torres MD ? Signed By: ?<Electronically signed by Mejia Torres MD in OV> ?02/10/23 1625 ? DD/ 1424 ? TD/TT: ? Recording Engineer: ? Procedure Note Mary Alice, Image - 02/10/2023 [facility] [address] [place] [address] Dr. [place], [place] [address] Mammography Report Signed Patient: Janes KnutsonCatalina#: [id number] : 1985Acct:[id number] Age/Sex: 37 / FADM Date: 02/10/23 Loc: HO.MAMMO Attending Dr: Sparkle Maldonado CNM Ordering Physician: Sparkle MaldonadoMResults: 1Nega tive Date of Service: 02/10/23Follow Up: 1 Year From [facility] ina Mammogram Procedure(s): MM tomosynthesis diagnostic BI Accession Number(s): [id number] cc: Sparkle Maldonado CNM; Roberta Burroughs MD EXAMINATION: MM DIAGNOSTIC DIGITAL BREAST TOMOSYNTHESIS, BILATERAL US BREAST LIMITED, RIGHT MAMMOGRAPHY: CLINICAL INFORMATION: 37-year-old female complaining of right breast pain spanning 10-12 o'clock axis. COMPARISON: Mammography: None. Baseline exam. TECHNIQUE: Digital breast tomosynthesis is performed in both the craniocaudal and mediolateral oblique views along with computer-aided detection (CAD). Synthesized 2D images are generated from the tomosynthesis. FINDINGS: The breasts are heterogeneously dense, which may obscure small masses (ACR BI-RADS breast composition Category c). There are no significant masses, abnormal calcifications, or other abnormalities, in either breast. The area of breast pain at the 10-12 o'clock region demonstrates no mammographic abnormality. There are no skin or axillary changes. ULTRASOUND: CLINICAL INFORMATION: 37-year-old female complaining of right breast pain spanning 10-12 o'clock axis. COMPARISON: None TECHNIQUE: Targeted sonographic evaluation was performed using a high frequency linear transducer. Attention was given to the region of pain spanning the 9:00 to 2:00 axis right breast. Selected archived documentation. FINDINGS: RIGHT BREAST: There is a mixture of fatty and fibroglandular tissue. No suspicious mass is seen. There is no pathologic acoustic shadowing. There are no cystic abnormalities. MM/MM tomosynthesis diagnostic BI IMPRESSION: No findings suspicious for malignancy. No mammographic or sonographic correlate to the region of breast pain within the right breast spanning the 10-12 o'clock axis. Recommend clinical management. OVERALL ASSESSMENT: Mammography: BI-RADS 1 - Negative Ultrasound: BI-RADS 1 - Negative RECOMMENDATION: 1. Patient should be managed based on the clinical impression. 2. Otherwise, routine annual screening mammography in one year. Results were provided to the patient at time of visit by the technologist. This patient's information was entered into a reminder system with a target due date for their next mammogram. Dictated By: Mejia Torres MD Signed By: <Electronically signed by Mejia Torres MD in OV> 02/10/23 1625 DD/ 1424 TD/TT: Recording Engineer: [facility] External Provider IMG BI PROCEDURES Final Result * Pap Smear (01/12/2023 9:41 AM EST) 01/12/2023 9:41 AM EST 01/13/2023 12:30 PM EST Narrative [facility] - 01/18/2023 1:41 PM EST ----- ------- Name: Janes Knutson,Desire ?Age/Sex: 37/F ? : 1985 Unit#: [id number] ?? Attend Dr: Sparkle Maldonado CNM ?Re01/12/23 ?Status: DEP REF ? Location: HO.LNP ?Disch: ? ----- ------- SPEC : [id number] ?RECD: 01/13/23-1230 ? STATUS: ??SOUT ? REQ NUM: [id number] ? BALJINDER: 01/12/23-940 ? SUBM DR: Sparkle Maldonado CNM ? ENTERED: ??01/13/23-1503 ?SP TYPE: Pap Smr ?OTHR DR: Vida Van WIRER MAINTENANCE ? ORDERED: ??Pap Smear ? Interpretation ?? Satisfactory for evaluation. ?? Mild inflammation. ?? Hyperkeratosis noted. ?? Negative for intraepithelial lesion or malignancy. ?HPV mRNA E6/E7: ?NOT DETECTED ? This assay detects E6/E7 viral messenger RNA (mRNA) from 14 high-risk HPV types (16, 18, ?? 31, 33, 35, 39, 45, 51, 52, 56, 58, 59, 66, 68) ?? HPV testing performed by [facility] [facility], [place], [place]. ??See reference laboratory ?? portion of the EMR for entire report. ?Clinical Information LMP: 12/13/22 Previous PAP test: 2018, WNL ? Material Received ?? ThinPrep-Cervical Copies To: ?? Sparkle Maldonado CNM ?? [address] ?? [place] [address] ?? [phone] ?? Vida Van WIRER MAINTENANCE ?? [address] ?? [place] [address] ?? [phone] ----- ------- Signed (signature on file) ERICKA Roa ([facility]) 01/18/23 1341 ? ----- ------- ? END OF REPORT ? us Generic External Data Provider LAB MATI ELLIOTT Final Result [facility] [address] [place] [phone] from Last 3 Months or Most Recently Relevant to Health Maintenance Insurance [facility] Care Teams Color Drum Worker Relationship Specialty Start Date End Date Roberta Burroughs MD [address] [phone] PCP - General Internal Medicine 08/05/22 Gonsalo Unger FNP [address] [phone] Nurse Practitioner Family Medicine 12/28/22
--- OUTSIDE RECORDS SUMMARY | 2024-03-30 13:02 | XMS_ITS | Encounter Summary ---
Author Organization [employer] Address [address] [place] [address] Care Team Providers Care Barge Loader Name Role Phone Vida Van PR SPECIALIST Primary Care Provider [phone] Roberta Burroughs MD Primary Care Pro vider Gonsalo Unger PR SPECIALIST Unavailable Unavailable Encounter Details Date Type Department Care Team (Late st Contact Info) Description 01/13/2022 Abstract [facility] [address] [place], [place] [id number] Ashley Badillo, RIANNA [address] [place] [address] Social History Tobacco Use Types Packs/Day Years Used Date Smoking Tobacco: Never Assessed PHQ-2 Answer Date Recorded Patient Health Questionnaire-2 [...] suspected to have Coronavirus/COVID-19? No / Unsure 01/13/2022 2:17 PM EST documented as of this encounter Plan of Treatment Not on file documented as of this encounter Visit Diagnoses Not on filedocumented in this encounter Additional Health Concerns Assessment Noted Time PHQ-9 Depression Total Score: 20 022 2:35 PM EST documented as of this encounter Care Teams Barge Loader Relationship Specialty Start Date End Date Vida Van FNP PCP - General Family Medicine 10/06/21 08/04/22 Roberta Burroughs MD [address] [place] [address] PCP - General Internal Medicine 08/05/22 Gonsalo Unger FNP [address] [place] [address] Nurse Practitioner Family Medicine 12/28/22 documented as of this encounter
== END 2024-03-30 12:08 | disposition home or self-care (01) ==
PROVIDERS: PCP Student in an Organized Health Care Education/Training Program; Visit Provider Nurse Practitioner Family
DX: M62.838 Other muscle spasm (principal); M47.812 Spondylosis without myelopathy or radiculopathy, cervical region; M25.511 Pain in right shoulder
CPT/HCPCS: 99214

== ENCOUNTER 2024-03-30 11:47 | Outpatient (REF) | payer MEDICAID, SELFPAY ==
--- NOTE | ~2024-03-30 | XR_ITS ---
CLINICAL HISTORY: M25.511 - Pain in right shoulder 3 view right shoulder Comparison: None Findings: Bones intact. No dislocations. No significant loss of joint space or osteophytes. No erosions. No radiopaque foreign body. IMPRESSION: 1. No acute findings. This document has been electronically signed by: Tressa Ascencio MD on 03/31/2024 11:42:11
== END 2024-03-30 11:48 | disposition home or self-care (01) ==
LOC: HO.XRAY 11:47
PROVIDERS: PCP Student in an Organized Health Care Education/Training Program; Visit Provider Nurse Practitioner Family
DX: M25.511 Pain in right shoulder (principal); M47.812 Spondylosis without myelopathy or radiculopathy, cervical region; M62.838 Other muscle spasm
CPT/HCPCS: 73030; 99212

== ENCOUNTER → 2024-03-30 12:20 | Outpatient (BNV) | payer MEDICAID, SELFPAY | PROVIDERS: PCP Student in an Organized Health Care Education/Training Program; Visit Provider Radiology Diagnostic Radiology | DX: M25.511 Pain in right shoulder (principal) | CPT/HCPCS: 73030 ==

== ENCOUNTER 2024-04-20 15:13 | Outpatient (REF) | payer MEDICAID, SELFPAY ==
--- OUTSIDE RECORDS SUMMARY | 2024-04-20 18:54 | XMS_ITS | Clinical Summary ---
Author Organization [employer] Address [address] [place] [address] Care Team Providers Care Cashier And Waiter/Waitress Name Role Phone Roberta Burroughs MD Primary Care Pro vider Gonsalo Unger Unavailable Unavailable Allergies Active Allergy Reactions Criticality Noted Date Comments Gramineae Pollens 01/13/2022 Environmental allergies Medications hydrOXYzine HCl (Atarax) 10 MG tablet Take 10 mg by mouth in the morning and at bedtime. 022 Active sodium chloride (Yuba) 0.65 % nasal spray use as needed for nasal congestion Active Blood Pressure Monitoring (Blood Pressure Kit) deviceIndication s:Elevated BP without diagnosis of hypertension 1 each in the morning. 1 each 022 Active Misc. Devices (Pulse Oximeter) miscIndications: Mild persistent asthma without complication 1 each if needed each day (Shortness of breath). 1 each 022 Active levothyroxine (Tirosint) 137 MCG capsuleIndicatio ns:Acquired hypothyroidism Take 1 capsule (137 mcg) by mouth before breakfast. 30 capsule 2 022 Active lidocaine (Lidoderm) 5 % patchIndications :Chronic pain of both shoulders Apply 1 patch topically in the morning. apply 1 patch by transdermal route 2 times every day (May wear up to 12hours.) 30 patch 2 022 Active valACYclovir (Valtrex) 500 MG tabletIndication s:Herpes simplex Take 1 tablet (500 mg) by mouth in the morning. 30 tablet 2 022 Active ketoconazole (NIZOral) 2 % shampooIndicatio ns:Seborrheic dermatitis of scalp USE TO WASH HAIR TWICE WEEKLY AT LEAST 3 DAYS APART 120 mL 1 022 Active ketotifen (Zaditor) 0.025 % ophthalmic solutionIndicati ons:Seasonal allergic rhinitis due to pollen USE 1 DROP IN EACH EYE TWICE DAILY 5 mL 1 023 Active Diclofenac Sodium (Voltaren) 1 % gelIndications:C hronic pain of both shoulders,Neck pain Apply 2 g topically if needed in the morning and at bedtime (muscle pain). 100 g 3 023 Active topiramate 50 MG tabletIndication s:Medication overuse headache TAKE 1 TABLET BY MOUTH TWICE DAILY 60 tablet 1 023 Active amitriptyline (Elavil) 25 MG tabletIndication s:Medication overuse headache TAKE 2 TABLETS BY MOUTH EVERY DAY AT BEDTIME 60 tablet 1 023 Active Advair Diskus 250-50 MCG/ACT aerosol powder INHALE 1 PUFF BY MOUTH TWICE DAILY RINSE MOUTH AFTER USING. 024 Active ferrous gluconate (Fergon) 324 (38 Fe) MG tablet Take 1 tablet (324 mg) by mouth 2 (two) times a week. 90 tablet 024 2024 Active FT Stool Softener 50-8.6 MG tablet TAKE 1 TABLET BY MOUTH ONCE DAILY 90 tablet 024 Active clonazePAM (KlonoPIN) 0.5 MG tabletIndication s:Anxious depression Take 1 tablet (0.5 mg) by mouth every 12 (twelve) hours. 60 tablet 1 024 Active Fluocinolone Acetonide Scalp 0.01 % oilIndications:S eborrheic dermatitis of scalp APPLY A THIN LAYER TO DAMP SCALP, MASSAGE WELL and COVER. LEAVE ON FOR 4 HOURS OR OVERNIGHT THEN WASH OFF 118.28 mL 1 024 Active olmesartan (BENIcar) 20 MG tabletIndication s:Essential hypertension TAKE 1 TABLET BY MOUTH ONCE DAILY 90 tablet 1 024 Active SUMAtriptan (Imitrex) 50 MG tablet TAKE 1 TABLET AT ONSET OF MIGRAINE, MAY REPEAT DOSE IN 4 HOURS IF NEEDED *MAX 2 TABLETS DAILY* Active acyclovir (Zovirax) 5 % ointmentIndicati ons:Herpes simplex Apply topically 6 (six) times a day. Space applications every 3 hours. 15 g 2 024 Active fluticasone (Flonase Allergy Relief) 50 MCG/ACT nasal spray Administer 1 spray into each nostril 2 times daily. Shake gently. Before first use, prime pump. After use, clean tip and replace cap. 16 g 024 2024 Active sodium chloride (Yuba) 0.65 % nasal spray Administer 1 spray into each nostril if needed for congestion. 15 mL 2 024 2024 Active cholecalciferol (Vitamin D-3) 125 MCG (5000 UT) capsule Take 1 capsule (125 mcg) by mouth Once per day. 90 capsule 1 024 Active montelukast (Singulair) 10 MG tabletIndication s:Mild persistent asthma without complication TAKE 1 TABLET BY MOUTH EVERY DAY IN THE MORNING 90 tablet 1 024 Active cetirizine (ZyrTEC) 10 MG tabletIndication s:Seasonal allergic rhinitis due to pollen TAKE 1 TABLET BY MOUTH ONCE DAILY NEEDED FOR ALLERGIES 90 tablet 1 024 Active traZODone (Desyrel) 100 MG tablet TAKE 1 TABLET AT BEDTIME 90 tablet 024 Active buPROPion XL (Wellbutrin XL) 300 MG 24 hr tabletIndication s:Anxious depression TAKE 1 TABLET EVERY MORNING 90 tablet 024 Active albuterol (Ventolin HFA) 108 (90 Base) MCG/ACT inhalerIndicatio ns:Mild persistent asthma without complication Inhale 2 puffs every 4 (four) hours if needed for wheezing or shortness of breath. 18 g 3 025 Active meclizine (Antivert) 25 MG tabletIndication s:Vertigo Take 1 tablet (25 mg) by mouth if needed in the morning, at noon, and at bedtime for dizziness. 30 tablet 2 025 Active Zepbound 5 MG/0.5ML solution auto-injector INJECT 1 PEN (5 MG) SUBCUTANEOUSLY ONCE A WEEK DIRECTED 2 mL 025 Active ibuprofen 800 MG tabletIndication s:Chronic pain of both shoulders TAKE 1 TABLET BY MOUTH EVERY DAY NEEDED FOR MODERATE PAIN 30 tablet 025 Active cyanocobalamin (Vitamin B-12) 1000 MCG tabletIndication s:Cobalamin deficiency TAKE 1 TABLET BY MOUTH ONCE DAILY 90 tablet 1 025 Active cyanocobalamin (Vitamin B-12) 1000 MCG tabletIndication s:Cobalamin deficiency TAKE 1 TABLET BY MOUTH ONCE DAILY 90 tablet 1 024 2024 Discontinued meclizine (Antivert) 25 MG tabletIndication s:Dizziness Take 1 tablet (25 mg) by mouth if needed in the morning, at noon, and at bedtime for dizziness. 30 tablet 2 024 2024 Discontinued(R eorder (will not trigger notification to Pharmacy)) ibuprofen 800 MG tabletIndication s:Chronic pain of both shoulders Take 1 tablet (800 mg) by mouth if needed each day for moderate pain. 30 tablet 024 2024 Discontinued(R eorder (will not trigger notification to Pharmacy)) Tirzepatide-Weig ht Management 2.5 MG/0.5ML solution auto-injector Inject 0.5 mL (2.5 mg) under the skin 1 (one) time per week. Start Zepbound 2.5 mg weekly for 4 to 6 weeks and then increase to 5 mg weekly if tolerating 2 mL 1 024 2024 Discontinued Tirzepatide-Weig ht Management (Zepbound) 5 MG/0.5ML solution auto-injector Inject 0.25 mL (2.5 mg) under the skin 1 (one) time per week. INJECT ONE PEN (= 5 MG) SUBCUTANEOUSLY ONCE A WEEK 2 mL 1 025 2024 Discontinued Zepbound 5 MG/0.5ML solution auto-injector INJECT ONE PEN (=2.5MG) SUBCUTANEOUSLY ONCE A WEEK DIRECTED 2 mL 1 025 2024 Discontinued Active Problems Problem Noted Date Diagnosed Date [...] intake with prescriber at her outpatient agency, [facility]. Meanwhile, will continue Wellbutrin XL 300 mg [...] Hypothyroidism 12/24/2014 Overview (08/05/2022): Care managed by [facility] Dr. Heber Murdock Last visit around 07/15/22 [...] a hx of recurrent sinusitis. Unfortunately her mobility specialist recently retired and she is awaiting to see a new one. Plan: Continue Zyrtec. Start Augmentin BID x 7 days F/u with new mobility specialist Environmental and seasonal allergies 04/02/2022 10/31/2022 Overview (08/05/2022): Care managed by [facility] Receives allergy shots Assessment & Plan (08/05/2022 [...] Assessment & Plan (04/02/2022 1:51 PM EST): Veronica, had been receiveing immunotherapy in the past unfortunatelly mobility specialist retired and she was unable to contine. Her nasal congestion is preventing her from sleeping. On exam she has significant turbinate erythema. She is already using otc Afrin and nasal steroids with no good results as well as daily antihistaminics Plan: Medrol dose pack while she sees her mobility specialist again to give her relief Exposure [...] Encounters Date Type Department Care Team Description 04/20/2024 Refill [facility] MED[facility] [address] [place] [phone] Roberta Burroughs MD Cobalamin deficiency 04/12/2024 Refill [facility] [address] [place] [phone] Karina Eaton MD Chronic pain of both shoulders 04/12/2024 Refill [facility] [address] [place] [phone] Roberta Burroughs MD Chronic pain of both shoulders 04/11/2024 Refill [facility] [address] [place] [phone] Karina Eaton MD 04/11/2024 Refill [facility] [address] [place] [phone] Roberta Burroughs MD 03/31/2024 3:20 PM EST Office Visit [facility] [address] [address] Name, MD Derek Vertigo (Primary Dx) 03/30/2024 Orders Only [facility] External Provider, [facility] 03/30/2024 Telephone [facility] [address] [place] [phone] Мария Bello [place] May recall 02/22/2024 Telephone [facility] [address] [place] [phone] Ansley Jorge, RN Results 02/11/2024 1:20 PM EST Office Visit [facility] [address] [address] Roberta Grubbs MD Acute non-recurrent maxillary sinusitis (Primary Dx); Viral URI; Mild persistent asthma without complication from Last 3 Months Immunizations Name Administration [...] Sign Reading Time Taken Comments Blood Pressure 130/89 03/31/2024 3:22 PM EST Pulse 65 03/31/2024 3:22 PM EST Temperature 36.7 ??C (98 ??F) 03/31/2024 3:22 PM EST Respiratory Rate 18 03/31/2024 3:22 PM EST Oxygen Saturation 99% 03/31/2024 3:22 PM EST Inhaled Oxygen Concentration - - Weight 102 kg (225 lb) 03/31/2024 3:22 PM EST Height 160 cm (5' 3 ) 01/04/2024 2:34 PM EST Body Mass Index 39.86 01/04/2024 2:34 PM EST Plan of Treatment Upcoming Encounters Date Type Department Care Team (Late st Contact Info) Description 06/27/2024 11:30 AM EDT Office Visit [facility] [address] [place] [address] [phone] Roberta Burroughs MD [address], [place] [phone] Health Maintenance Due Date Last Done Comments [...] Additional history exists HIV Screening Completed 12/10/2023, 07/2022, 01/14/2022 Hepatitis C Screening Completed 12/10/2023 , [...] INFLUENZA B (ID NOW RAPID MOLECULAR) Routine 03/31/2024 3:41 PM EST Vertigo POCT INFLUENZA A (ID NOW RAPID MOLECULAR) Routine 03/31/2024 3:41 PM EST Vertigo XR SHOULDER 2+ VIEWS RIGHT Routine 03/31/2024 11:42 AM EST POCT INFLUENZA B (ID NOW RAPID MOLECULAR) [...] * Influenza B (ID NOW Rapid Molecular) (03/31/2024 3:41 PM EST) Only the most recent of2 resultswithin the time period is included. Influenza B Negative Negative, Indeterminate [facility] Swab 03/31/2024 3:41 PM EST Derek Name POINT OF CARE TEST ENTER/EDIT OR DERABLES Final Result Performing Organization Address [facility] Co de Phone Number [facility] [address] [place] [address] [phone] * Influenza A (ID NOW Rapid Molecular) (03/31/2024 3:41 PM EST) Only the most recent of2 resultswithin the time period is included. Influenza A Negative Negative, Indeterminate [facility] Swab 03/31/2024 3:41 PM EST Derek Name POINT OF CARE TEST ENTER/EDIT OR DERABLES Final Result Performing Organization Address [facility] Co de Phone Number [facility] [address] [place] [address] [phone] * XR Shoulder 2+ Views Right (03/31/2024 11:42 AM EST) Anatomical Region Laterality Modality Upper Extremities, Shoulder Right Radi ographic Imaging 03/31/2024 11:4 2 AM EST Narrative 03/31/2024 11:43 AM EST ? [facility] ?[address] ?[place] [address] ?XRay Report ? Signed ? Patient: Marrero Eamon,Desire ?MR#: ?? [id number] ? : 1985 ?Acct:[id number] ? Age/Sex: 38 / F ?ADM Date: /20/25 ? Loc: HO.XRAY ? Attending Dr: Veronica Espinoza STOVE REFINISHER ? Ordering Physician: Veronica Espinoza ?? Date of Service: 03/30/24 ?? Procedure(s): XR shoulder RT min 2V ?? Accession Number(s): [id number] ? cc: Veronica Espinoza; Roberta Burroughs MD ? CLINICAL HISTORY: M25.511 - Pain in right shoulder ? 3 view right shoulder ? Comparison: None ? Findings: ?? Bones intact. No dislocations. ?? No significant loss of joint space or osteophytes. ?? No erosions. No radiopaque foreign body. ? IMPRESSION: ?? 1. No acute findings. ? This document has been electronically signed by: Tressa Ascencio MD on ?? 03/31/2024 11:42:11 ? Dictated By: ?Tressa Ascencio MD ? Signed By: ?<Electronically signed by Tressa Ascencio MD in OV> ?03/31/24 1143 ? DD/ 1142 ? TD/TT: 03/31/24 1142 ? Nick Setter: ? Procedure Note Donelissagriseldater, Image - 03/31/2024 [place] [address] XRay Report Signed Patient: Catalina Wood#: [id number] : 1985Acct:[id number] Age/Sex: 38 / FADM Date: 03/30/24 Loc: GUILLERMINA Attending Dr: Veronica DALY Ordering Physician: Veronica Espinoza Date of Service: 03/30/24 Procedure(s): XR shoulder RT min 2V Accession Number(s): [id number] cc: Veronica Espinoza; Roberta Burroughs MD CLINICAL HISTORY: M25.511 - Pain in right shoulder 3 view right shoulder Comparison: None Findings: Bones intact. No dislocations. No significant loss of joint space or osteophytes. No erosions. No radiopaque foreign body. IMPRESSION: 1. No acute findings. This document has been electronically signed by: Tressa Ascencio MD on 03/31/2024 11:42:11 Dictated By: Tressa Ascencio MD Signed By: <Electronically signed by Tressa Ascencio MD in OV> 03/31/24 1143 DD/ 1142 TD/TT: 03/31/24 1142 Nick Setter: [facility] External Provider IMG XR PROCEDURES Final Result * POCT Rapid COVID Ag (02/11/2024 1:41 PM EST) Pathologist [facility] Rapid COVID Ag Negative [facility] Swab 02/11/2024 1:41 PM EST us Roberta Motley MD POINT OF CARE TEST EN TER/EDIT ORDERABLES Final Result Performing Organization Address [facility] de Phone Number [facility] [address] [place] [phone] * POCT rapid strep A manually resulted (02/11/2024 1:41 PM EST) [facility] Rapid Strep A Screen Negative Negative, None Detected [facility] Swab 02/11/2024 1:41 PM EST us Roberta Motley MD POINT OF CARE TEST EN TER/EDIT ORDERABLES Final Result Performing Organization Address [facility] Number [facility] [address] [place] [phone] * Hepatitis C Antibody with Reflex to HCV, RNA, Quantitative, Real-Time PCR (12/10/2023 11:55 AM EDT) [facility] Hepatitis C Antibody Nonreactive Nonreactive [facility] Comment:Antibodies to HCV no t detected; does not exclude early acuteHCV infection. Blood Venous blood specimen / Unknown 12/10/2023 11:55 AM EDT 12/10/2023 1:25 PM EDT us Roberta Acuna MD LAB BLOOD ORDERAB LES Final Result Performing Organization Address [facility] de Phone Number [facility] [address] [place] [phone] * HIV-1/2 Antigen and Antibodies, Fourth Generation, with Reflexes (12/10/2023 11:55 AM EDT) [facility] HIV AB/AG Nonreactive Nonreactive [facility] Comment:HIV-1 p24 Ag and/or HIV-1/HIV-2 Ab not detected.A test result that is nonreactive does not exclude thepossibility of exposure to or infection with HIV-1 and/orHIV-2. Nonreactive results in this assay for individualswith prior exposure to HIV-1 and/or HIV-2 may be due toantigen and antibody levels that are below the limit ofdetection of this assay.The [employer] HIV Ag/Ab Combo assay result andsupplemental assay results should be interpreted inconjunction with the patient's clinical presentation,history and other laboratory results. If the results areinconsistent with clinical evidence, additional testing issuggested to confirm the result. Blood Venous blood specimen / Unknown 12/10/2023 11:55 AM EDT 12/10/2023 1:25 PM EDT Roberta Acuna MD LAB BLOOD ORDERAB LES Final Result [facility] [address] [place] [phone] * (ABNORMAL) Lipid Panel, Standard (12/10/2023 11:53 AM EDT) Triglycerides 49 <150 mg/dL [facility] Comment:Desirable Triglyceri de: less than 150 mg/dLBorderline High Triglyceride 150-199 mg/dLHigh Triglyceride: 200-499 mg/dLVery High Triglyceride: greater than or equal to 5OO mg/dL Cholesterol 163 <200 mg/dL [facility] Comment:Desirable Cholestero l: less than 200 mg/dLBorderline High Cholesterol: 200-239 mg/dLHigh Cholesterol: greater than 239 mg/dL LDL Cholesterol Calculated 100(H) <100 mg/dL [facility] Comment:Desirable LDL: less than 100 mg/dLNear Optimal/Above Optimal LDL: 110- 129 mg/dLBorderline High LDL: 130-159 mg/dLHigh LDL: 160-189 mg/dLVery High LDL: greater than or equal to 190 mg/dL HDL Cholesterol 54 >40 mg/dL [facility] Comment:Desirable HDL: great er than 40 mg/dL Note: This HDL assay may give artificially low results in patients with liver disease. Blood Venous blood specimen / Unknown 12/10/2023 11:53 AM EDT 12/10/2023 1:25 PM EDT us Roberta Acuna MD LAB BLOOD ORDERAB LES Final Result [facility] [address] [place] [address] [phone] * BI Mammogram Diagnostic Tomosynthesis Bilateral (02/10/2023 2:24 PM EST) Anatomical Region Laterality Modality Breast Bilateral Mammography 02/10/2023 2:24 PM EST Narrative 02/10/2023 4:28 PM EST ? [facility] ? [address] ?[place] [address] ? Mammography Report ? Signed ? Patient: Marrero Eamon,Desire ?MR#: ?? [id number] ? : 1985 ?Acct:[id number] ? Age/Sex: 37 / F ?ADM Date: 02/10/23 ? Loc: HO.MAMMO ? Attending Dr: Sparkle Maldonado CNM ? Ordering Physician: Sparkle Maldonado CNM ?Results: 1Nega ?? tive ? Date of Service: 02/10/23 ?Follow Up: 1 Year From Orig ?? inal Mammogram ? Procedure(s): MM tomosynthesis diagnostic BI ?? Accession Number(s): [id number] ? cc: Sparkle Maldonado CNM; Roberta Burroughs MD ? EXAMINATION: ?? MM DIAGNOSTIC DIGITAL BREAST TOMOSYNTHESIS, BILATERAL ?? US BREAST LIMITED, RIGHT ? MAMMOGRAPHY: ?? CLINICAL INFORMATION: ? 37-year-old female complaining of right breast pain spanning 11-19 ?? o'clock axis. ? COMPARISON: ?? Mammography: [...] The area of breast pain at the 12 ?? o'clock region demonstrates no mammographic abnormality. There are no ?? skin or axillary changes. ? ULTRASOUND: ?? CLINICAL INFORMATION: ?? 37-year-old female complaining of right breast pain spanning -12 ?? o'clock axis. ? COMPARISON: ?? None [...] signed by Mejia Torres MD in OV> ?02/10/235 ? DD/ 1424 ? TD/TT: ? Nick Setter: ? Procedure Note Donronakter, Image - 02/10/2023 [facility] [address] [place] [address] Mammography Report Signed Patient: Catalina Wood#: [id number] : 1985Acct:[id number] Age/Sex: 37 / FADM Date: 02/10/23 Loc: HO.MAMMO Attending Dr: Sparkle Maldonado CNM Ordering Physician: Sparkle Maldonadoesults: 1Nega tive Date of Service: 02/10/23Follow Up: 1 Year From [facility] Mammogram Procedure(s): MM tomosynthesis diagnostic BI Accession Number(s): [id number] cc: Sparkle Maldonado CNM; Roberta Burroughs MD [...] in OV> 02/10/23 1625 DD/ 1424 TD/TT: Nick Setter: [facility] External Provider IMG BI PROCEDURES Final Result * Pap Smear (01/12/2023 9:41 AM EST) 01/12/2023 9:41 AM EST 01/13/2023 12:30 PM EST [facility] - 01/18/2023 1:41 PM EST ----- ------- Name: Janes Knutson,Desire ?Age/Sex: 37/F ? : 1985 Unit#: [id number] ?? Attend Dr: Sparkle Maldonado CNNai ?Re01/12/23 ?Status: DEP REF ? Location: HO.LNP ?Disch: ? ----- ------- SPEC : [id number] ?RECD: 01/13/23-1230 ? STATUS: ??SOUT ? REQ NUM: [id number] ? BALJINDER: 01/12/23 ? SUBM DR: Sparkle Maldonado CNM ? ENTERED: ??01/13/23-1502 ?SP TYPE: Pap Smr ?OTHR DR: Vida Van STOVE REFINISHER ? ORDERED: ??Pap Smear ? Interpretation ?? Satisfactory for evaluation. ?? Mild inflammation. ?? Hyperkeratosis noted. ?? Negative for intraepithelial lesion or malignancy. ?HPV mRNA E6/E7: ?NOT DETECTED ? This assay detects E6/E7 viral messenger RNA (mRNA) from 14 high-risk HPV types (16, 18, ?? 31, 33, 35, 39, 45, 51, 52, 56, 58, 59, 66, 68) ?? HPV testing performed by [employer], [place], [place]. ??See reference laboratory ?? portion of the EMR for entire report. ?Clinical Information LMP: 12/13/22 Previous PAP test: 2018, WNL ? Material Received ?? ThinPrep-Cervical Copies To: ?? Sparkle Maldonado CNM ?? [address] ?? [place] [address] ?? [phone] ?? Vida Van STOVE REFINISHER ?? [address] ?? [place] [address] ?? [phone] ----- ------- Signed (signature on file) ERICKA Roa (ASCP) 01/18/23 4291 ? ----- ------- ? END OF REPORT ? us Generic External Data Provider LAB CYTOLOGY ORDE RABLES Final Result [facility] [address] [place] [phone] from Last 3 Months or Most Recently Relevant to Health Maintenance Insurance [facility] C3 HS FULL Care Teams Cashier And Waiter/Waitress Relationship Specialty Start Date End Date Roberta Burroughs MD [address] [place] [address] PCP - General Internal Medicine 08/05/22 Gonsalo Unger FNP [address] [place] [address] Nurse Practitioner Family Medicine 12/28/22
--- OUTSIDE RECORDS SUMMARY | 2024-04-20 18:54 | XMS_ITS | Continuity of Care Document ---
Author Organization [place] [facility], Allergy Address [address] [place] [phone] Assessment Encounter Date Assessment Date Assessment LastModified by Organization Details LastModified Time 04/07/2024 04/07/2024 Visit With: Chasidy Olivier RN Use of Antihistamine s: No If yes: Vial Test Change in medications: No If yes ? ? ? Increase in asthma symptoms No Asthma Hx If yes, inhaler use: Reaction to last injections: No If yes: ? ? ? Allergy Symptoms: Other: ? ? ? Missed: Dose Aware of Vial Test Notes:? ? ? [email or web address] Not available 04/07/2024 15:28:32 Plan of Treatment Reminders Order Date Submit Date Provider Last Modified By Organization Details Last Modified Time Details Appointments [facility]- Allergy f-up 6mon 2024 11:00A M [...] Address Organization Details Recorded Time Acute sinusitis 10411204 Active 2020 Acute sinusitis , unspecifi ed; Note: Date Diagnosed : 05/10/2020 3:30 PM (J01.90) Not Available [facility] 03:13:59 Deviated nasal septum 781320836 Active 2018 Deviated nasal septum; Note: Date Diagnosed : 07/05/2018 11:43 AM (J34.2) Not Available [facility] 4 03:13:58 Chronic rhinitis 18928022 Active 2020 Chronic rhinitis; Note: Date Diagnosed : 01/09/2021 3:05 PM (J31.0) Not Available [facility] 4 03:13:58 Headache 85482246 Active 2019 Facial pain NOS; Note: Date Diagnosed : 02/10/2019 1:37 PM (R51) Not Available [facility] 4 03:13:58 Nasal congestio n 59257863 Active 2018 Nasal congestio n; Note: Date Diagnosed : 07/05/2018 11:43 AM (R09.81) Not Available [facility] 4 03:13:58 Polyp of nasal cavity 365897592 Active 2021 Polyp of nasal cavity; Note: Date Diagnosed : 03/13/2021 11:28 AM (J33.0) Not Available [facility] 4 03:13:57 Allergic rhinitis 42239271 Active 2023 Allergic rhinitis: Due to other [...] Date : 9 Not Available [facility] 4 01:24:27 Otalgia of right ear 6757531254 Active 2019 Otalgia, right ear; Note: Date Diagnosed : 12/11/2019 2:59 PM (H92.01) Not Available [facility] 4 03:13:59 Perennial allergic rhinitis 851635839 Active 2023 LEANNA ACEVEDO [address], [address] , [facility] - [facility] 4 11:04:09 Impacted cerumen in right ear [id number] 56769 Active 2023 ORVILLE PURCELL MD [address] [place] [address], [place], [address] , [facility] - [facility] 4 11:08:25 Problem Notes None recorded. Procedures Surgical History Date Name Laterality Status Provider Name and Address Organization Details Recorded Time 04/15/19 25 Allergy Immunotherapy Injections completed BABS DUNCAN [facility] [address] [facility],[address], [address], [facility] - [facility] 04/14/2024 12:13:53 04/07/19 25 Allergy Immunotherapy Injections completed CHASIDY OILVIER RN [address], [place], [address], [place] [facility] 04/07/2024 15:28:25 03/31/19 25 Allergy Immunotherapy Injections completed CHASIDY OLIVIER RN [address],[place], [place], [address], [place] [facility] 03/31/2024 13:19:41 03/23/19 25 Allergy Immunotherapy Injections completed BABS DUNCAN RMA [address],[place], [place], [address], [place] [facility] 03/23/2024 15:32:40 03/10/19 25 Allergy Immunotherapy Injections completed CHASIDY OLIVIER RN [address] [facility] [address], [place], [address], [place] [facility] 03/10/2024 12:05:52 03/02/19 25 Allergy Immunotherapy Injections completed KOURTNEY MANCINI [address],[place] [address] [place] [address], [address], [place] [facility] 03/02/2024 12:02:23 02/23/19 25 Allergy Immunotherapy Injections completed KOURTNEY MANCINI [address],[place] [address] [place] [address], [address], [place] [facility] 02/24/2024 11:30:40 02/14/19 25 Allergy Immunotherapy Injections completed BABS DUNCAN RMA [address],[place], [place], [address], [place] [facility] 02/15/2024 11:08:53 02/09/19 25 Allergy Immunotherapy Injections completed BABS DUNCAN RMA [address],[place], [place], [address], [place] [facility] 02/10/2024 14:28:06 01/27/20 24 Allergy Immunotherapy Injections completed CHASIDY OLIVIER RN [address],[place] [address], [place], [address], [place] [facility] 01/27/2024 09:07:49 01/20/20 24 Allergy Immunotherapy Injections completed LEANNA KRISTINA, RMA [address],[place] [address], [place], [address], [place] [facility] 01/20/2024 13:36:07 01/13/20 24 Allergy Immunotherapy Injections completed BABS DUNCAN, RMA [address],[place] [address], [place], [address], [place] [facility] 01/13/2024 14:30:51 01/05/20 24 Allergy Immunotherapy Injections completed BABS DUNCAN, RMA [address],[place] [address], [place], [address], [place] [facility] 01/05/2024 13:22:16 12/30/19 24 Allergy Immunotherapy Injections completed KOURTNEY MANCINI [address] [facility] [address], [place], [address], [place] [facility] 12/30/2023 12:06:22 12/23/19 24 Allergy Immunotherapy Injections completed BABS DUNCAN RMA [address] [facility] [address],[place] [address] [place] [address], [address], [place] [facility] 12/23/2023 11:41:23 12/16/19 24 Allergy Immunotherapy Injections completed KOURTNEY MANCINI [address] [facility] [address],[place] [address] [place] [address], [address], [place] [facility] 12/16/2023 11:21:05 12/09/19 24 Allergy Immunotherapy Injections completed BABS DUNCAN RMA [address] [facility] [address],[place] [address] [place] [address], [address], [place] [facility] 12/09/2023 11:41:30 11/30/19 24 Allergy Immunotherapy Injections completed CHASIDY OLIVIER RN [address], [place], [address], [place] [facility] 11/30/2023 11:29:17 11/25/19 24 Allergy Immunotherapy Injections completed BABS DUNCAN RMA [address],[place], [place], [address], [place] [facility] 11/25/2023 11:41:02 11/18/19 24 Allergy Immunotherapy Injections completed LEANNA KRISTINA, RMA [address], [place], [address], [place] [facility] 11/18/2023 11:51:54 11/11/19 24 Allergy Immunotherapy Injections completed CHASIDY OLIVIER RN [address], [place], [address], [place] [facility] 11/11/2023 09:15:07 11/05/19 24 Allergy Immunotherapy Injections completed VICTORIANO MANCINIA [address], [place], [address], [place] [facility] 11/05/2023 12:14:13 10/28/19 24 Allergy Immunotherapy Injections completed BABS DUNCAN RMA [address], [place], [address], [place] [facility] 10/28/2023 14:45:57 10/21/19 24 Allergy Immunotherapy Injections completed KOURTNEY MANCINI [address], [place], [address], [place] [facility] 10/21/2023 11:41:17 10/08/19 24 Allergy Immunotherapy Injections completed BABS DUNCAN RMA [address],[place], [place], [address], [place] [facility] 10/08/2023 11:33:35 10/01/19 24 Allergy Immunotherapy Injections completed VICTORIANO MANCINIA [address], [place], [address], [place] [facility] 10/01/2023 10:32:59 09/23/19 24 Allergy Immunotherapy Injections completed LEANNA ACEVEDO RMA [address], [place], [address], [place] [facility] 09/23/2023 13:46:52 09/16/19 24 Allergy Immunotherapy Injections completed BABS DUNCAN RMA [address], [place], [address], [place] [facility] 09/16/2023 14:07:22 09/09/19 24 Allergy Immunotherapy Injections completed CHASIDY OLIVIER RN [address], [place], [address], [facility] - [facility] 09/09/2023 12:03:04 09/02/19 24 Allergy Immunotherapy Injections completed BABS DUNCAN RMA [address],[place], [place], [address], [facility] - [facility] 09/02/2023 11:46:51 08/26/19 24 Allergy Immunotherapy Injections completed BABS DUNCAN RMA [address] [facility] [address], [place], [address], [place] [facility] 08/26/2023 13:11:56 08/19/19 24 Allergy Immunotherapy Injections completed CHASIDY OLIVIER RN [address] [facility] [address],[place] [place] [address], [address], [facility] - [facility] 08/19/2023 14:02:06 08/10/19 24 Allergy Immunotherapy Injections completed BABS DUNCAN A [address] [facility] [address],[place] [address] [place] [address], [address], [facility] - [facility] 08/10/2023 15:12:45 08/04/19 24 Allergy Immunotherapy Injections completed BABS DUNCAN RMA [address] [facility] [address] [address],[place] [address] [place] [address], [address], [facility] - [facility] 08/04/2023 12:15:15 08/04/19 24 Cerumen removal without microscope completed ORVILLE PURCELL MD [address] [facility] [address],[place] [address] [place] [address], [address], [facility] - [facility] 08/04/2023 11:08:52 07/28/19 24 Allergy Immunotherapy Injections completed KOURTNEY MANCINI [address] [facility] [address], [place], [address], [facility] - [facility] 07/28/2023 15:01:20 07/20/19 24 Allergy Immunotherapy Injections completed BABS DUNCAN RMA [address] [facility] [address], [place], [address], [facility] - [facility] 07/20/2023 14:23:42 07/13/19 24 Allergy Immunotherapy Injections completed KOURTNEY MANCINI [address], [place], [address], [place] [facility] 07/13/2023 13:59:55 07/06/19 24 Allergy Immunotherapy Injections completed VICTORIANO MANCINIA [address], [place], [address], [place] [facility] 07/06/2023 12:17:36 06/29/19 24 Allergy Immunotherapy Injections completed KOURTNEY MANCINI [address] [facility] [address], [place], [address], [place] [facility] 06/29/2023 11:04:40 Imaging Results None recorded. Procedure Notes None recorded. Medical Equipment None Reported. Medications Name Sig Start Date Stop Date Status Note LastModified by Organization Details LastModified Time prednison e 10 mg tablet Take as directed 2022 active Medicati on ID: [id number] D uration Value: 12 Brand Name: predniso [...] % shampoo 2021 active Medicati on ID: [id number] B rand Name: ketocona zole Sen d [...] eye drops 06/16 completed Medicati on ID: [id number] B rand Name: ketotife n fumarate Send [...] eye drops 2021 active Medicati on ID: [id number] B rand Name: cromolyn Send Method: E-Prescr [...] a day 2021 active Medicati on ID: [id number] D uration Value: 7 Brand Name: ofloxaci [...] mg tablet 03/13 completed Medicati on ID: [id number] D uration Value: 15 Brand Name: ruddy navarro Send Method: E-Prescr ibed Sub s Allowed: subs OK Speci al Instruct ion: TAKE 1 TABLET TWICE DAILY NEEDED M edicatio nGeneric Name: lorazepa m Not Available Not Available Not Available cyanocoba santy (vit B-12) 500 mcg tablet 06/16 completed Medicati on ID: [id number] B rand Name: cyanocob alamin (vitamin B-12) [...] spray aerosol 06/16 completed Medicati on ID: 272313 B rand Name: triamcin olone acetonid e Send Method: E-Prescr ibed Sub s Allowed: subs OK Speci al Instruct ion: TAKE 2 SPRAYS INTO EACH NOSTRIL EVERY DAY [facility] triamcin olone acetonid e Not [...] as directed 2021 active Medicati on ID: 616302 D uration Value: 30 Prescri bed By [...] 1 tablet 2021 active Medicati on ID: 323010 D uration Value: 14 Prescri bed By [...] mg tablet 03/13 completed Medicati on ID: [id number] B rand Name: Fiber-La x Send Method: [...] unit) capsule 03/13 completed Medicati on ID: [id number] D uration Value: 30 Brand Name: Vitamin [...] extended release 2021 active Medicati on ID: 853374 B rand Name: bupropio n HCl Send [...] HFA aerosol inhaler active Medicati on ID: 809407 B rand Name: Symbicor t Send Method: [...] SNOMED-CT Code Diagnosis ICD10 Code Diagnosis Note [id number] CHASIDY OLIVIER RN Allergy 100 [facility],[place] [address] 100 [facility] HEYDI ROSALES [address] 03/10/2024 12:04:55 03/10/2024 12:06:11 Perennial allergic rhinitis 320282354 J30.89 [id number] BABS KEMPDamien, RMA Allergy [address] [place] [address], [address] [place] [address] 03/23/2024 15:32:06 03/23/2024 15:33:20 Perennial allergic rhinitis 189476328 J30.89 [id number] CHASIDY OLIVIER RN Allergy [address] [place] [address] 100 [facility] [place] [address] 03/31/2024 13:19:12 03/31/2024 13:20:14 Perennial allergic rhinitis 530908442 J30.89 [id number] CHASIDY OLIVIER RN Allergy [address] [place] [address] 100 [place] [address] 04/07/2024 15:27:56 04/07/2024 15:28:48 Perennial allergic rhinitis 396965664 J30.89 Health Concerns Section Related Observation LastModified by Organization Detai ls LastModified Time None Recorded Concern Status LastModified by Organization Details LastModified Time None Recorded Payers Encounter Date Sequence Insurance Name Policy Number Policy Monet Covered Member ID Monet Member ID Guarantor Name 04/07/2024 1 [place] [facility] Desire Marrero [id number] Desire Marrero OBGyn Episode No OBEpisode recorded.
--- OUTSIDE RECORDS SUMMARY | 2024-04-20 18:54 | XMS_ITS | Continuity of Care Document ---
Author Organization [place] [facility], Allergy Address [address] [place] [phone] Assessment Encounter Date Assessment Date Assessment LastModified [...] Organization Details Last Modified Time Details Appointments [facility]- Allergy f-up 6mon 2024 11:00A M SANDOR [...] Address Organization Details Recorded Time Acute sinusitis [id number] Active 2020 Acute sinusitis , unspecifi ed; Note: Date Diagnosed : 05/10/2020 3:30 PM (J01.90) Not Available [facility] 03:13:59 Deviated nasal septum 354111865 Active 2018 Deviated nasal septum; Note: Date Diagnosed : 07/05/2018 11:43 AM (J34.2) Not Available [facility] 4 03:13:58 Chronic rhinitis 52972055 Active 2020 Chronic rhinitis; Note: Date Diagnosed : 01/09/2021 3:05 PM (J31.0) Not Available [facility] 4 03:13:58 Headache 22580162 Active 2019 Facial pain NOS; Note: Date Diagnosed : 02/10/2019 1:37 PM (R51) Not Available [facility] 4 03:13:58 Nasal congestio n 50191677 Active 2018 Nasal congestio n; Note: Date Diagnosed : 07/05/2018 11:43 AM (R09.81) Not Available [facility] 4 03:13:58 Polyp of nasal cavity 150824590 Active 2021 Polyp of nasal cavity; Note: Date Diagnosed : 03/13/2021 11:28 AM (J33.0) Not Available [facility] 4 03:13:57 Allergic rhinitis 56604707 Active 2023 Allergic rhinitis: Due to other [...] ; Start Date : 9 Not Available [facility] 4 01:24:27 Otalgia of right ear 8743572204 Active 2019 Otalgia, right ear; Note: Date Diagnosed : 12/11/2019 2:59 PM (H92.01) Not Available [facility] 4 03:13:59 Perennial allergic rhinitis 123218223 Active 2023 LEANNA ACEVEDO [facility] [address], [address] , [facility] - [facility] 4 11:04:09 Impacted cerumen in right ear [id number] 34468 Active 2023 ORVILLE PURCELL MD [address] [place] [address], [phone] , [facility] - [facility] 4 11:08:25 Problem Notes None recorded. Procedures Surgical History Date Name Laterality Status Provider Name and Address Organization Details Recorded Time 04/15/19 25 Allergy Immunotherapy Injections completed BABS DUNCAN [facility] 100 [facility],[address], [address], [facility] - [facility] 04/14/2024 12:13:53 04/07/19 25 Allergy Immunotherapy Injections completed CHASIDY OLIVIER RN [address], [place], [address], [place] [facility] 04/07/2024 15:28:25 03/31/19 25 Allergy Immunotherapy Injections completed CHASIDY OLIVIER RN 100 [facility] [address],[place] [address] [place] [address], [phone], [place] [facility] 03/31/2024 13:19:41 03/23/19 25 Allergy Immunotherapy Injections completed KOURTNEY MEDINA [address] [facility] [address],[place], [place], [address], [place] [facility] 03/23/2024 15:32:40 03/10/19 25 Allergy Immunotherapy Injections completed CHASIDY OLIVIER RN 100 [facility],[place] [address] [place] [address], [address], [place] [facility] 03/10/2024 12:05:52 03/02/19 25 Allergy Immunotherapy Injections completed KOURTNEY MANCINI 100 [facility] [place] [address] [place] [address], [phone], [place] [facility] 03/02/2024 12:02:23 02/23/19 25 Allergy Immunotherapy Injections completed KOURTNEY MANCINI 100 [facility] [place],[place] [address] [place] [address], [phone], [place] [facility] 02/24/2024 11:30:40 02/14/19 25 Allergy Immunotherapy Injections completed KOURTNEY MEDINA 100 [facility] [place],[place] [address] [place] [address], [phone], [place] [facility] 02/15/2024 11:08:53 02/09/19 25 Allergy Immunotherapy Injections completed BABS DUNCAN RMSergio 100 [facility] [address],[place] [address] [place] [address], [phone], [place] [facility] 02/10/2024 14:28:06 01/27/20 24 Allergy Immunotherapy Injections completed CHASIDY OLIVIER RN 100 [facility] [address],[place] [address] [place] [address], [address], [place] [facility] 01/27/2024 09:07:49 01/20/20 24 Allergy Immunotherapy Injections completed KOURTNEY MANCINI [address], [place], [address], [place] [facility] 01/20/2024 13:36:07 01/13/20 24 Allergy Immunotherapy Injections completed BABS DUNCAN, RMA [address], [place], [address], [place] [facility] 01/13/2024 14:30:51 01/05/20 24 Allergy Immunotherapy Injections completed BABS DUNCAN, RMA [address], [place], [address], [place] [facility] 01/05/2024 13:22:16 12/30/19 24 Allergy Immunotherapy Injections completed KOURTNEY MANCINI [address],[place], [place], [address], [place] [facility] 12/30/2023 12:06:22 12/23/19 24 Allergy Immunotherapy Injections completed BABS DUNCAN RMA [address],[place], [place], [address], [place] [facility] 12/23/2023 11:41:23 12/16/19 24 Allergy Immunotherapy Injections completed KOURTNEY MANCINI [address],[place], [place], [address], [place] [facility] 12/16/2023 11:21:05 12/09/19 24 Allergy Immunotherapy Injections completed BABS DUNCAN RMA [address], [place], [address], [place] [facility] 12/09/2023 11:41:30 11/30/19 24 Allergy Immunotherapy Injections completed CHASIDY OLIVIER RN [address],[place], [place], [address], [place] [facility] 11/30/2023 11:29:17 11/25/19 24 Allergy Immunotherapy Injections completed BABS DUNCAN, RMA [address], [place], [address], [place] [facility] 11/25/2023 11:41:02 11/18/19 24 Allergy Immunotherapy Injections completed KOURTNEY MANCINI [address], [place], [address], [place] [facility] 11/18/2023 11:51:54 11/11/19 24 Allergy Immunotherapy Injections completed CHASIDY OLIVIER RN [address], [place], [address], [place] [facility] 11/11/2023 09:15:07 11/05/19 24 Allergy Immunotherapy Injections completed KOURTNEY MANCINI [address], [place], [address], [place] [facility] 11/05/2023 12:14:13 10/28/19 24 Allergy Immunotherapy Injections completed VICTORIANO MEDINAA [address], [place], [address], [place] [facility] 10/28/2023 14:45:57 10/21/19 24 Allergy Immunotherapy Injections completed KOURTNEY MANCINI [address], [place], [address], [place] [facility] 10/21/2023 11:41:17 10/08/19 24 Allergy Immunotherapy Injections completed BABS DUNCAN RMA [address], [place], [address], [place] [facility] 10/08/2023 11:33:35 10/01/19 24 Allergy Immunotherapy Injections completed VICTORIANO MANCINIA [address], [place], [address], [place] [facility] 10/01/2023 10:32:59 09/23/19 24 Allergy Immunotherapy Injections completed LEANNA ACEVEDO RMA [address], [place], [address], [place] [facility] 09/23/2023 13:46:52 09/16/19 24 Allergy Immunotherapy Injections completed BABS DUNCAN RMA [address], [place], [address], [place] [facility] 09/16/2023 14:07:22 09/09/19 24 Allergy Immunotherapy Injections completed CHASIDY OLIVIER RN [address], [place], [address], [facility] - [facility] 09/09/2023 12:03:04 09/02/19 24 Allergy Immunotherapy Injections completed BABS DUNCAN, RMA [address], [place], [address], [place] [facility] 09/02/2023 11:46:51 08/26/19 24 Allergy Immunotherapy Injections completed BABS DUNCAN RMA 100 [facility],[address], [place], [address], [place] [facility] 08/26/2023 13:11:56 08/19/19 24 Allergy Immunotherapy Injections completed CHASIDY OLIVIER RN 100 [facility] [address],[place] [place] [address], [address], [place] [facility] 08/19/2023 14:02:06 08/10/19 24 Allergy Immunotherapy Injections completed BABS DUNCAN RMA 100 [facility] [address] [facility], [place], [address], [facility] - [facility] 08/10/2023 15:12:45 08/04/19 24 Allergy Immunotherapy Injections completed BABS DUNCAN RMA 100 [facility] [address], [place], [address], [facility] - [facility] [place] 08/04/2023 12:15:15 08/04/19 24 Cerumen removal without microscope completed ORVILLE PURCELL MD 100 [facility],[address], [place], [address], [facility] - [facility] 08/04/2023 11:08:52 07/28/19 24 Allergy Immunotherapy Injections completed LEANNA ACEVEDO Sergio [address],[place] [place] [address], [address], [facility] - [facility] 07/28/2023 15:01:20 07/20/19 24 Allergy Immunotherapy Injections completed BABS DUNCAN RMA 100 [facility],[address], [place], [address], [place] [facility] 07/20/2023 14:23:42 07/13/19 24 Allergy Immunotherapy Injections completed LEANNA ACEVEDO, VICTORIANOA [address],[place] [address], [place], [address], [place] [facility] 07/13/2023 13:59:55 07/06/19 24 Allergy Immunotherapy Injections completed LEANNA ACEVEDO RMA [address], [place], [address], [facility] - [facility] 07/06/2023 12:17:36 06/29/19 24 Allergy Immunotherapy Injections completed LEANNA ACEVEDO RMA 100 [facility],[address], [place], [address], [place] [facility] 06/29/2023 11:04:40 Imaging Results None recorded. Procedure Notes None recorded. Medical Equipment None Reported. Medications Name Sig Start Date Stop Date Status Note LastModified by Organization Details LastModified Time prednison e 10 mg tablet Take as directed 2022 active Medicati on ID: [id number] D uration Value: 12 Brand Name: predniso [...] % shampoo 2021 active Medicati on ID: 792041 B rand Name: ketocona zole Sen d [...] eye drops 06/16 completed Medicati on ID: [id number] B rand Name: ketotife n fumarate Send [...] eye drops 2021 active Medicati on ID: 073984 B rand Name: cromolyn Send Method: E-Prescr [...] a day 2021 active Medicati on ID: [id number] D uration Value: 7 Brand Name: ofloxaci [...] mg tablet 03/13 completed Medicati on ID: 476420 D uration Value: 15 Brand Name: lormena navarro Send Method: E-Prescr ibed Sub s Allowed: subs OK Speci al Instruct ion: TAKE 1 TABLET TWICE DAILY NEEDED M edicatio nGeneric Name: lorazepa m Not Available Not Available Not Available cyanocoba santy (vit B-12) 500 mcg tablet 06/16 completed Medicati on ID: 159620 B rand Name: cyanocob alamin (vitamin B-12) [...] spray aerosol 06/16 completed Medicati on ID: 298223 B rand Name: triamcin olone acetonid e [...] as directed 2021 active Medicati on ID: [id number] D uration Value: 30 Prescri bed By [...] 1 tablet 2021 active Medicati on ID: 904852 D uration Value: 14 Prescri bed By [...] mg tablet 03/13 completed Medicati on ID: 478059 B rand Name: Fiber-La x Send Method: [...] unit) capsule 03/13 completed Medicati on ID: [id number] D uration Value: 30 Brand Name: Vitamin [...] extended release 2021 active Medicati on ID: 683796 B rand Name: bupropio n HCl Send [...] HFA aerosol inhaler active Medicati on ID: 997637 B rand Name: Symbicor t Send Method: [...] SNOMED-CT Code Diagnosis ICD10 Code Diagnosis Note [id number] KOURTNEY MANCINI Allergy 100 [facility],[place] 100 [facility] [address] 02/24/2024 11:29:38 02/24/2024 11:31:30 Perennial allergic rhinitis 577070998 J30.89 10642 LEANNA ACEVEDO [facility] Allergy 100 [facility] 100 [place] [address] 03/02/2024 12:01:42 03/02/2024 12:02:49 Perennial allergic rhinitis 986951354 J30.89 59275 CHASIDY OLIVIER RN Allergy [address] [place], [place] [address] 100 [place] [address] 03/10/2024 12:04:55 03/10/2024 12:06:11 Perennial allergic rhinitis 892965796 J30.89 [id number] BABS DUNCAN [facility] Allergy [address] [place] [address],[facility] 100 [place] [address] 03/23/2024 15:32:06 03/23/2024 15:33:20 Perennial allergic rhinitis 283648191 J30.89 Health Concerns Section Related Observation LastModified by Organization Detai ls LastModified Time None Recorded Concern Status LastModified by Organization Details LastModified Time None Recorded Payers Encounter Date Sequence Insurance Name Policy Number Policy Monet Covered Member ID Monet Member ID Guarantor Name 03/23/2024 1 MEDICAID-[place]: [facility] Desire Marrero [id number] Desire Marrero OBGyn Episode No OBEpisode recorded.
--- OUTSIDE RECORDS SUMMARY | 2024-04-20 18:55 | XMS_ITS | Encounter Summary ---
Author Organization [employer] Address [address] [place] [address] [address] [place] [address] Care Team Providers Care Recreational Counselor Name Role Phone Roberta Burroughs MD Primary Care Pro vider Gonsalo Unger Unavailable Unavailable Reason for Visit * Reason Comments Med Refill Encounter Details Date Type Department Care Team (Late st Contact Info) Description 04/11/2024 Refill [facility] MEDICINE [address] [place], [place] [phone] Roberta Burroughs MD [address] [place], [place] [phone] Social History Tobacco Use Types Packs/Day Years [...] your housing situation today? I have robby ashli 10/06/[address] you li [...] as of this encounter Plan of Treatment Upcoming Encounters Date Type Department Care Team (Late st Contact Info) Description 06/27/2024 11:30 AM EDT Office Visit [facility] MEDICINE [address] [place] [address] Roberta Burroughs MD [address] [place] [address] documented as of this encounter Visit Diagnoses Not on filedocumented in this encounter Additional Health Concerns Assessment Noted Time PHQ-9 Depression Total Score: 17 024 11:32 AM EDT documented as of this encounter Care Teams Recreational Counselor Relationship Specialty Start Date End Date Roberta Burroughs MD [address] [place] [address] PCP - General Internal Medicine 08/05/22 Gonsalo Unger FNP [address] [place] [id number] Nurse Practitioner Family Medicine 12/28/22 documented as of this encounter
--- OUTSIDE RECORDS SUMMARY | 2024-04-20 18:55 | XMS_ITS | Continuity of Care Document ---
Author Organization [place] [facility], Allergy Address [address] [place] [phone] Assessment Encounter Date Assessment Date Assessment LastModified by Organization Details LastModified Time 03/31/2024 03/31/2024 Visit With: Yu Jorge Use of Antihistamine s: No If yes: Vial Test Change in medications: No If yes ? ? ? Increase in asthma symptoms No Asthma Hx If yes, inhaler use: Reaction to last injections: No If yes: ? ? ? Allergy Symptoms: Other: ? ? ? Missed: Dose Aware of Vial Test Notes:? ? ? [email or web address] Not available 03/31/2024 13:19:53 Plan of Treatment Reminders Order Date Submit [...] Address Organization Details Recorded Time Acute sinusitis 74809080 Active 2020 Acute sinusitis , unspecifi ed; Note: Date Diagnosed : 05/10/2020 3:30 PM (J01.90) Not Available [facility] 4 03:13:59 Deviated nasal septum 843284025 Active 2018 Deviated nasal septum; Note: Date Diagnosed : 07/05/2018 11:43 AM (J34.2) Not Available [facility] 4 03:13:58 Chronic rhinitis 09129000 Active 2020 Chronic rhinitis; Note: Date Diagnosed : 01/09/2021 3:05 PM (J31.0) Not Available [facility] 4 03:13:58 Headache 24680637 Active 2019 Facial pain NOS; Note: Date Diagnosed : 02/10/2019 1:37 PM (R51) Not Available [facility] 4 03:13:58 Nasal congestio n 68180369 Active 2018 Nasal congestio n; Note: Date Diagnosed : 07/05/2018 11:43 AM (R09.81) Not Available [facility] 4 03:13:58 Polyp of nasal cavity 887394701 Active 2021 Polyp of nasal cavity; Note: Date Diagnosed : 03/13/2021 11:28 AM (J33.0) Not Available [facility] 4 03:13:57 Allergic rhinitis 33186026 Active 2023 Allergic rhinitis: Due to other [...] ; Start Date : 9 Not Available [facility] 4 01:24:27 Otalgia of right ear 3982951040 Active 2019 Otalgia, right ear; Note: Date Diagnosed : 12/11/2019 2:59 PM (H92.01) Not Available [facility] 4 03:13:59 Perennial allergic rhinitis 294672288 Active 2023 YU JORGE [address] [address], [place], [address] , [facility] 4 11:04:09 Impacted cerumen in right ear [id number] 95908 Active 2023 ORVILLE UPRCELL MD [address] [place] [address], [place], [address] , [facility] - [facility] 4 11:08:25 Problem Notes None recorded. Procedures Surgical History Date Name Laterality Status Provider Name and Address Organization Details Recorded Time 04/15/19 25 Allergy Immunotherapy Injections completed BABS DUNCAN Sergio 100 [facility],[address], [address], [facility] - [facility] 04/14/2024 12:13:53 04/07/19 25 Allergy Immunotherapy Injections completed CHASIDY OLIVIER RN [address] [place] [address],[address], [address], [place] - [facility] 04/07/2024 15:28:25 03/31/19 25 Allergy Immunotherapy Injections completed CHASIDY OLIVIER RN 100 [facility] [place] [address] [place] [address], [address], [place] [facility] 03/31/2024 13:19:41 03/23/19 25 Allergy Immunotherapy Injections completed BABS DUNCAN RMA [address] [facility] [address],[place], [place], [address], [place] [facility] 03/23/2024 15:32:40 03/10/19 25 Allergy Immunotherapy Injections completed CHASIDY OLIVIER RN 100 [facility] [place] [address] [place] [address], [address], [place] [facility] 03/10/2024 12:05:52 03/02/19 25 Allergy Immunotherapy Injections completed KOURTNEY MANCINI 100 [facility] [place] [address] [place] [address], [address], [place] [facility] 03/02/2024 12:02:23 02/23/19 25 Allergy Immunotherapy Injections completed KOURTNEY MANCINI 100 [facility] [place] [address] [place] [address], [phone], [place] [facility] 02/24/2024 11:30:40 02/14/19 25 Allergy Immunotherapy Injections completed BABS DUNCAN RMA [address],[place] [address] [place] [address], [address], [place] [facility] 02/15/2024 11:08:53 02/09/19 25 Allergy Immunotherapy Injections completed BABS DUNCAN RMA [address] [facility] [address],[place] [address], [place], [address], [place] [facility] 02/10/2024 14:28:06 01/27/20 24 Allergy Immunotherapy Injections completed CHASIDY OLIVIER RN [address] [facility] [address] [address],[place] [address] [place] [address], [address], [place] [facility] 01/27/2024 09:07:49 01/20/20 24 Allergy Immunotherapy Injections completed YU KRISTINA, RMA [address],[place] [address], [place], [address], [place] [facility] 01/20/2024 13:36:07 01/13/20 24 Allergy Immunotherapy Injections completed BABS DUNCAN RMA [address],[place] [address], [place], [address], [place] [facility] 01/13/2024 14:30:51 01/05/20 24 Allergy Immunotherapy Injections completed BABS DUNCAN RMA [address],[place] [address], [place], [address], [place] [facility] 01/05/2024 13:22:16 12/30/19 24 Allergy Immunotherapy Injections completed KOURTNEY MANCINI [address] [facility] [address] [address],[place], [place], [address], [place] [facility] 12/30/2023 12:06:22 12/23/19 24 Allergy Immunotherapy Injections completed BABS DUNCAN RMA 100 [facility] [place] [address] [place] [address], [address], [place] [facility] 12/23/2023 11:41:23 12/16/19 24 Allergy Immunotherapy Injections completed KOURTNEY MANCINI [address] [facility] [address] [address],[place] [address] [place] [address], [address], [place] [facility] 12/16/2023 11:21:05 12/09/19 24 Allergy Immunotherapy Injections completed BABS DUNCAN RMA 100 [facility] [place] [address] [place] [address], [address], [place] [facility] 12/09/2023 11:41:30 11/30/19 24 Allergy Immunotherapy Injections completed CHASIDY OLIVIER RN [address] [facility], [place], [address], [place] [facility] 11/30/2023 11:29:17 11/25/19 24 Allergy Immunotherapy Injections completed BABS DUNCAN RMA [address] [facility] [address],[place], [place], [address], [place] [facility] 11/25/2023 11:41:02 11/18/19 24 Allergy Immunotherapy Injections completed YU KRISTINA, RMA [address],[place] [address], [place], [address], [place] [facility] 11/18/2023 11:51:54 11/11/19 24 Allergy Immunotherapy Injections completed CHASIDY OLIVIER RN [address] [facility] [address] [address],[place], [place], [address], [place] [facility] 11/11/2023 09:15:07 11/05/19 24 Allergy Immunotherapy Injections completed VICTORIANO MANCINIA [address], [place], [address], [place] [facility] 11/05/2023 12:14:13 10/28/19 24 Allergy Immunotherapy Injections completed BABS DUNCAN RMA [address], [place], [address], [place] [facility] 10/28/2023 14:45:57 10/21/19 24 Allergy Immunotherapy Injections completed KOURTNEY MANCINI [address] [facility] [address],[place], [place], [address], [place] [facility] 10/21/2023 11:41:17 10/08/19 24 Allergy Immunotherapy Injections completed BABS DUNCAN RMA [address],[place], [place], [address], [facility] - [facility] 10/08/2023 11:33:35 10/01/19 24 Allergy Immunotherapy Injections completed VICTORIANO MANCINIA [address],[place] [address], [place], [address], [facility] - [facility] 10/01/2023 10:32:59 09/23/19 24 Allergy Immunotherapy Injections completed YU JORGE RMA [address],[place] [address], [place], [address], [place] [facility] 09/23/2023 13:46:52 09/16/19 24 Allergy Immunotherapy Injections completed BABS DUNCAN RMA [address],[place] [address], [place], [address], [place] [facility] 09/16/2023 14:07:22 09/09/19 24 Allergy Immunotherapy Injections completed CHASIDY OLIVIER RN [address],[place] [address], [place], [address], [place] [facility] 09/09/2023 12:03:04 09/02/19 24 Allergy Immunotherapy Injections completed BABS DUNCAN RMA [address],[place] [address], [place], [address], [place] [facility] 09/02/2023 11:46:51 08/26/19 24 Allergy Immunotherapy Injections completed BABS DUNCAN RMA [address] [facility] [address],[place], [place], [address], [place] [facility] 08/26/2023 13:11:56 08/19/19 24 Allergy Immunotherapy Injections completed CHASIDY OLIVIER RN [address] [facility] [address],[place] [address] [place] [address], [address], [place] [facility] 08/19/2023 14:02:06 08/10/19 24 Allergy Immunotherapy Injections completed BABS DUNCAN A 100 [facility] [place] [address] [place] [address], [address], [place] [facility] 08/10/2023 15:12:45 08/04/19 24 Allergy Immunotherapy Injections completed BABS DUNCAN RMA 100 [facility] [place] [address] [place] [address], [address], [facility] - [facility] 08/04/2023 12:15:15 08/04/19 24 Cerumen removal without microscope completed ORVILLE PURCELL MD [address] [facility] [address],[place] [address] [place] [address], [address], [facility] - [facility] 08/04/2023 11:08:52 07/28/19 24 Allergy Immunotherapy Injections completed KOURTNEY MANCINI [address] [facility] [address],[place] [address] [place] [address], [address], [place] [facility] 07/28/2023 15:01:20 07/20/19 24 Allergy Immunotherapy Injections completed BABS DUNCAN RMA [address],[place] [address] [place] [address], [address], [place] [facility] 07/20/2023 14:23:42 07/13/19 24 Allergy Immunotherapy Injections completed KOURTNEY MANCINI [address] [place],[address], [place], [address], [place] [facility] 07/13/2023 13:59:55 07/06/19 24 Allergy Immunotherapy Injections completed VICTORIANO MANCINIA [address] [facility] [address], [place], [address], [place] [facility] 07/06/2023 12:17:36 06/29/19 24 Allergy Immunotherapy Injections completed VICTORIANO MANCINIA 100 [facility] [place],[facility] [address], [place], [address], [facility] 06/29/2023 11:04:40 Imaging Results None recorded. Procedure Notes None recorded. Medical Equipment None Reported. Medications Name Sig Start Date Stop Date Status Note LastModified by Organization Details LastModified Time prednison e 10 mg tablet Take as directed 2022 active Medicati on ID: [id number] D uration Value: 12 Brand Name: predniso [...] % shampoo 2021 active Medicati on ID: [id number] B rand Name: ketocona zole Sen d [...] eye drops 06/16 completed Medicati on ID: 423322 B rand Name: ketotife n fumarate Send [...] eye drops 2021 active Medicati on ID: 850502 B rand Name: cromolyn Send Method: E-Prescr [...] a day 2021 active Medicati on ID: 894537 D uration Value: 7 Brand Name: ofloxaci n Send Method: E-Prescr ibed Sub s Allowed: subs [place] Speci al Instruct ion: x 7 days [facility] oflox[facility] n Not Available Not Available [...] mg tablet 03/13 completed Medicati on ID: [id number] D uration Value: 15 Brand Name: ruddy navarro Send Method: E-Prescr ibed Sub s Allowed: subs [place] Speci al Instruct ion: TAKE 1 TABLET TWICE DAILY NEEDED M edicatio nGeneric Name: lorazepa m Not Available Not Available Not Available cyanocoba santy (vit B-12) 500 mcg tablet 06/16 completed Medicati on ID: 929228 B rand Name: cyanocob alamin (vitamin B-12) [...] spray aerosol 06/16 completed Medicati on ID: 063563 B rand Name: triamcin olone acetonid e Send Method: E-Prescr ibed Sub s Allowed: subs [place] Speci al Instruct ion: TAKE 2 SPRAYS INTO EACH NOSTRIL EVERY DAY [facility]i [facility] nericNam e: triamcin olone acetonid e Not [...] as directed 2021 active Medicati on ID: 536449 D uration Value: 30 Prescri bed By [...] 1 tablet 2021 active Medicati on ID: [id number] D uration Value: 14 Prescri bed By [...] mg tablet 03/13 completed Medicati on ID: [id number] B rand Name: Fiber-La x Send Method: [...] unit) capsule 03/13 completed Medicati on ID: [id number] D uration Value: 30 Brand Name: Vitamin [...] extended release 2021 active Medicati on ID: 773551 B rand Name: bupropio n HCl Send [...] HFA aerosol inhaler active Medicati on ID: 181235 B rand Name: Symbicor t Send Method: [...] SNOMED-CT Code Diagnosis ICD10 Code Diagnosis Note [id number] KOURTNEY MANCINI Allergy 100 [facility],[place] [address] [facility] [address] 03/02/2024 12:01:42 03/02/2024 12:02:49 Perennial allergic rhinitis 651223400 J30.89 [id number] CHASIDY OLIVIER RN Allergy [address] [place] [address], [address] [place] [address] 03/10/2024 12:04:55 03/10/2024 12:06:11 Perennial allergic rhinitis 213938781 J30.89 38938 BABS JUSTO, [facility] Allergy 100 [facility], [address] [place] [address] 03/23/2024 15:32:06 03/23/2024 15:33:20 Perennial allergic rhinitis 591547133 J30.89 28482 CHASIDY OLIVIER RN Allergy [address] [place] [address],[facility] [address] [place] [address] 03/31/2024 13:19:12 03/31/2024 13:20:14 Perennial allergic rhinitis 597484894 J30.89 Health Concerns Section Related Observation LastModified by Organization Detai ls LastModified Time None Recorded Concern Status LastModified by Organization Details LastModified Time None Recorded Payers Encounter Date Sequence Insurance Name Policy Number Policy Monet Covered Member ID Monet Member ID Guarantor Name 03/31/2024 1 [place] [facility] Desire Marrero [id number] Desire Marrero OBGyn Episode No OBEpisode recorded.
--- OUTSIDE RECORDS SUMMARY | 2024-04-20 18:55 | XMS_ITS | Encounter Summary ---
Author Organization [employer] Address [address] [facility] [address] [place] [address] Care Team Providers Care Director Of Patient Financial Services Name Role Phone Roberta Burroughs MD Primary Care Pro vider Gonsalo Unger Unavailable Unavailable Reason for Visit * Reason Comments Med Refill Encounter Details Date Type Department Care Team (Late st Contact Info) Description 08/11/2023 Refill [facility] [address] [place] [address] Gonsalo Unger FNP Anxious depression Social History [...] Description 06/27/2024 11:30 AM EDT Office Visit [facility] [address] [place] [phone] Roberta Burroughs MD [address] [place] [address] documented as of this encounter 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
--- OUTSIDE RECORDS SUMMARY | 2024-04-20 18:55 | XMS_ITS | Encounter Summary ---
Author Organization [employer] Address [address] [facility] [address] [place] [address] Care Team Providers Care Linter Saw Sharpener Name Role Phone Roberta Burroughs MD Primary Care Pro vider Gonsalo Unger Unavailable Unavailable Reason for Visit * Reason Comments Med Refill Encounter Details Date Type Department Care Team (Late st Contact Info) Description 11/10/2022 Refill [facility] [address] [place] [address] Vida Van FNP [address] [place] [address] Dept [place] [address] Seasonal allergic rhinitis due to pollen Social [...] Description 06/27/2024 11:30 AM EDT Office Visit [facility] [address] [place] [address] Roberta Burroughs MD [address] [place] [address] documented as of this encounter Visit Diagnoses Diagnosis Seasonal allergic rhinitis due to pollen documented in this encounter Additional Health Concerns Assessment Noted Time PHQ-9 Depression Total Score: 10 023 2:49 PM EDT documented as of this encounter Care Teams Linter Saw Sharpener Relationship Specialty Start Date End Date Roberta Burroughs MD [address] [place] [address] PCP - General Internal Medicine 08/05/22 Gonsalo Unger FNP [address] [place] [address] Nurse Practitioner Family Medicine 12/28/22 documented as of this encounter
--- OUTSIDE RECORDS SUMMARY | 2024-04-20 18:55 | XMS_ITS | Data Portability ---
Author Organization [facility] - [facility], Allergy Address [address] [place] [phone] Assessment Encounter Date Assessment Date Assessment LastModified [...] Test Notes:? ? ? ale Not available 03/23/2024 15:33:04 03/31/2024 03/31/2024 Visit With: Yu Acevedo Use of Antihistamine s: No If yes: Vial Test Change in medications: No If yes ? ? ? Increase in asthma symptoms No Asthma Hx If yes, inhaler use: Reaction to last injections: No If yes: ? ? ? Allergy Symptoms: Other: ? ? ? Missed: Dose Aware of Vial Test Notes:? ? ? [email or web address] Not available 03/31/2024 13:19:53 04/07/2024 04/07/2024 Visit With: Chasidy Olivier RN [...] ? ? hlorinser Not available 04/07/2024 15:28:32 04/14/2024 04/14/2024 Visit With: KOURTNEY Medina Use of Antihistamine s: No If yes: Vial Test Change in medications: No If yes ? ? ? Increase in asthma symptoms If yes, inhaler use: Reaction to last injections: No If yes: ? ? ? Allergy Symptoms: Other: ? ? ? Missed: Dose Aware of Vial Test Notes:? ? ? [email or web address] Not available 04/14/2024 12:14:14 Plan of Treatment Reminders Order Date Submit Date Provider Last Modified By Organization Details Last Modified Time Details Appointments [facility]- Allergy f-up 6mon 2024 11:00A [...] Address Organization Details Recorded Time Acute sinusitis 79223753 Active 2020 Acute sinusitis , unspecifi ed; Note: Date Diagnosed : 05/10/2020 3:30 PM (J01.90) Not Available [facility] 4 03:13:59 Deviated nasal septum 117349445 Active 2018 Deviated nasal septum; Note: Date Diagnosed : 07/05/2018 11:43 AM (J34.2) Not Available [facility] 4 03:13:58 Chronic rhinitis 54528637 Active 2020 Chronic rhinitis; Note: Date Diagnosed : 01/09/2021 3:05 PM (J31.0) Not Available [facility] 4 03:13:58 Headache 07180075 Active 2019 Facial pain NOS; Note: Date Diagnosed : 02/10/2019 1:37 PM (R51) Not Available [facility] 4 03:13:58 Nasal congestio n 78983162 Active 2018 Nasal congestio n; Note: Date Diagnosed : 07/05/2018 11:43 AM (R09.81) Not Available [facility] 4 03:13:58 Polyp of nasal cavity 498512687 Active 2021 Polyp of nasal cavity; Note: Date Diagnosed : 03/13/2021 11:28 AM (J33.0) Not Available [facility] 4 03:13:57 Allergic rhinitis 69796000 Active 2023 Allergic rhinitis: Due to other [...] 2:00 PM (477.8) Note: Date Diagnosed : 3 2:00 PM (477.8) ; Start Date : [...] ; Start Date : 9 Not Available [facility] 4 01:24:27 Otalgia of right ear 6892463062 Active 2019 Otalgia, right ear; Note: Date Diagnosed : 12/11/2019 2:59 PM (H92.01) Not Available [facility] 4 03:13:59 Perennial allergic rhinitis 799603053 Active 2023 YU ACEVEDO [facility] [address] [facility],[place] [address], [place], [address] , [facility] - [facility] 4 11:04:09 Impacted cerumen in right ear [id number] 74332 Active 2023 ORVILLE PURCELL MD [address] [facility],[place] [address], [place], [address] , [facility] - [facility] 4 11:08:25 Problem Notes None recorded. Procedures Surgical History Date Name Laterality Status Provider Name and Address Organization Details Recorded Time 04/15/19 25 Allergy Immunotherapy Injections completed BABS DUNCAN [facility] [address] [facility],[address], [address], [facility] - [facility] 04/14/2024 12:13:53 04/07/19 25 Allergy Immunotherapy Injections completed CHASIDY OLIVIER RN [address] [place] [address],[address], [address], [facility] - [facility] 04/07/2024 15:28:25 03/31/19 25 Allergy Immunotherapy Injections completed CHASIDY OLIVIER RN [address] [facility],[address], [address], [place] [facility] 03/31/2024 13:19:41 03/23/19 25 Allergy Immunotherapy Injections completed BABS DUNCAN, RMA [address], [place], [address], [place] [facility] 03/23/2024 15:32:40 03/10/19 25 Allergy Immunotherapy Injections completed CHASIDY OLIVIER RN [address], [place], [address], [place] [facility] 03/10/2024 12:05:52 03/02/19 25 Allergy Immunotherapy Injections completed YU ACEVEDO RMA [address], [place], [address], [place] [facility] 03/02/2024 12:02:23 02/23/19 25 Allergy Immunotherapy Injections completed VICTORIANO MANCINIA [address], [place], [address], [place] [facility] 02/24/2024 11:30:40 02/14/19 25 Allergy Immunotherapy Injections completed BABS DUNCAN, RMA [address], [place], [address], [place] [facility] 02/15/2024 11:08:53 02/09/19 25 Allergy Immunotherapy Injections completed BABS DUNCAN, RMA [address], [place], [address], [place] [facility] 02/10/2024 14:28:06 01/27/20 24 Allergy Immunotherapy Injections completed CHASIDY OLIVIER RN [address], [place], [address], [place] [facility] 01/27/2024 09:07:49 01/20/20 24 Allergy Immunotherapy Injections completed UY ACEVEDO RMA [address], [place], [address], [place] [facility] 01/20/2024 13:36:07 01/13/20 24 Allergy Immunotherapy Injections completed BABS DUNCAN, RMA [address], [place], [address], [place] [facility] 01/13/2024 14:30:51 01/05/20 24 Allergy Immunotherapy Injections completed BABS DUNCAN, RMA [address], [place], [address], [place] [facility] 01/05/2024 13:22:16 12/30/19 24 Allergy Immunotherapy Injections completed YU ACEVEDO RMA [address], [place], [address], [place] [facility] 12/30/2023 12:06:22 12/23/19 24 Allergy Immunotherapy Injections completed BABS DUNCAN RMA [address], [place], [address], [place] [facility] 12/23/2023 11:41:23 12/16/19 24 Allergy Immunotherapy Injections completed YU ACEVEDO RMA [address] [place] [address], [address], [place] [facility] 12/16/2023 11:21:05 12/09/19 24 Allergy Immunotherapy Injections completed BABS DUNCAN RMA [address] [place] [address], [address], [place] [facility] 12/09/2023 11:41:30 11/30/19 24 Allergy Immunotherapy Injections completed CHASIDY OLIVIER RN [address] [facility] [address] [facility] [place] [address], [address], [place] [facility] 11/30/2023 11:29:17 11/25/19 24 Allergy Immunotherapy Injections completed BABS DUNCAN RMA [address], [place], [address], [place] [facility] 11/25/2023 11:41:02 11/18/19 24 Allergy Immunotherapy Injections completed YU ACEVEDO RMA [address] [place] [address], [address], [place] [facility] 11/18/2023 11:51:54 11/11/19 24 Allergy Immunotherapy Injections completed CHASIDY OLIVIER RN [address] [place] [address], [address], [place] [facility] 11/11/2023 09:15:07 11/05/19 24 Allergy Immunotherapy Injections completed KOURTNEY MANCINI [address], [place], [address], [place] [facility] 11/05/2023 12:14:13 10/28/19 24 Allergy Immunotherapy Injections completed BABS DUNCAN RMA [address], [place], [address], [place] [facility] 10/28/2023 14:45:57 10/21/19 24 Allergy Immunotherapy Injections completed YU ACEVEDO RMA [address], [place], [address], [place] [facility] 10/21/2023 11:41:17 10/08/19 24 Allergy Immunotherapy Injections completed BABS DUNCAN RMA [address], [place], [address], [place] [facility] 10/08/2023 11:33:35 10/01/19 24 Allergy Immunotherapy Injections completed VICTORIANO MANCINIA [address] [facility] [address], [place], [address], [place] [facility] 10/01/2023 10:32:59 09/23/19 24 Allergy Immunotherapy Injections completed YU ACEVEDO RMA [address], [place], [address], [place] [facility] 09/23/2023 13:46:52 09/16/19 24 Allergy Immunotherapy Injections completed BABS DUNCAN RMA [address], [place], [address], [place] [facility] 09/16/2023 14:07:22 09/09/19 24 Allergy Immunotherapy Injections completed CHASIDY OLIVIER RN [address], [place], [address], [place] [facility] 09/09/2023 12:03:04 09/02/19 24 Allergy Immunotherapy Injections completed BABS DUNCAN RMA [address], [place], [address], [facility] - [facility] 09/02/2023 11:46:51 08/26/19 24 Allergy Immunotherapy Injections completed BABS DUNCAN RMA [address] [facility],[address], [place], [address], [place] [facility] 08/26/2023 13:11:56 08/19/19 24 Allergy Immunotherapy Injections completed CHASIDY OLIVIER RN [address] [facility] [address],[address] [place] [address], [address], [place] [facility] 08/19/2023 14:02:06 08/10/19 24 Allergy Immunotherapy Injections completed BABS DUNCAN RMA [address] [facility],[address], [address], [facility] - [facility] 08/10/2023 15:12:45 08/04/19 24 Allergy Immunotherapy Injections completed BABS DUNCAN RMA [address] [facility],[address] [place] [address], [address], [facility] - [facility] 08/04/2023 12:15:15 08/04/19 24 Cerumen removal without microscope completed ORVILLE PURCELL MD [address] [facility],[address], [address], [place] [facility] 08/04/2023 11:08:52 07/28/19 24 Allergy Immunotherapy Injections completed KOURTNEY MANCINI [address] [facility] [address] [place] [address], [address], [facility] - [facility] 07/28/2023 15:01:20 07/20/19 24 Allergy Immunotherapy Injections completed BABS DUNCAN RMA [address] [facility] [address], [place], [address], [place] [facility] 07/20/2023 14:23:42 07/13/19 24 Allergy Immunotherapy Injections completed KOURTNEY MANCINI [address] [facility] [address], [place], [address], [facility] - [facility] 07/13/2023 13:59:55 07/06/19 24 Allergy Immunotherapy Injections completed KOURTNEY MANCINI [address] [facility],[address], [address], [facility] - [facility] 07/06/2023 12:17:36 06/29/19 24 Allergy Immunotherapy Injections completed YU KOURTNEY ACEVEDO [address] [facility], [place], [address], [facility] - [facility] 06/29/2023 11:04:40 Imaging Results None recorded. Procedure Notes None recorded. Medical Equipment None Reported. Medications Name Sig Start Date Stop Date Status Note LastModified by Organization Details LastModified Time prednison e 10 mg tablet Take as directed 2022 active Medicati on ID: [id number] D uration Value: 12 Brand Name: predniso [...] % shampoo 2021 active Medicati on ID: 353978 B rand Name: ketocona zole Sen d [...] eye drops 06/16 completed Medicati on ID: 016003 B rand Name: ketotife n fumarate Send [...] eye drops 2021 active Medicati on ID: 238946 B rand Name: cromolyn Send Method: E-Prescr [...] a day 2021 active Medicati on ID: 134243 D uration Value: 7 Brand Name: ofloxaci [...] mg tablet 03/13 completed Medicati on ID: 666527 D uration Value: 15 Brand Name: ruddy navarro Send Method: E-Prescr ibed Sub s Allowed: subs [place] Speci al Instruct ion: TAKE 1 TABLET TWICE DAILY NEEDED M edicatio nGeneric Name: ruddy navarro Not Available Not Available Not Available cyanocoba santy (vit B-12) 500 mcg tablet 06/16 completed Medicati on ID: 901218 B rand Name: cyanocob alamin (vitamin B-12) [...] spray aerosol 06/16 completed Medicati on ID: 315173 B rand Name: triamcin olone acetonid e [...] as directed 2021 active Medicati on ID: 985668 D uration Value: 30 Prescri bed By [...] 1 tablet 2021 active Medicati on ID: 698708 D uration Value: 14 Prescri bed By [...] mg tablet 03/13 completed Medicati on ID: [id number] B rand Name: Fiber-La x Send Method: [...] unit) capsule 03/13 completed Medicati on ID: [id number] D uration Value: 30 Brand Name: Vitamin D3 Send Method: E-Prescr ibed Sub s Allowed: subs KALIE carney Instruct ion: TAKE 1 CAPSULE EVERY DAY [...] extended release 2021 active Medicati on ID: 385511 B rand Name: bupropio n HCl Send [...] HFA aerosol inhaler active Medicati on ID: 904117 B giuseppe Name: Symbicor t Send Method: E-Prescr ibed Sub s Allowed: subs [place] Speci al Instruct ion: INHALE 2 PUFFS BY MOUTH TWICE DAILY IN THE MORNING AND IN THE EVENING, RINSE MOUTH AFTER USING. Nai crandallelvacrystal De La [place]ega Name: Symbicor t Not [...] Diagnosis Note 970 SANDOR HOUSTON MD Allergy [address] [facility], [address] [place] [address] 06/29/2023 10:40:03 06/29/2023 13:04:16 Perennial allergic rhinitis 836040005 J30.89 1676 KOURTNEY MANCINI Allergy [address] [facility],[address] [place] [address] 07/06/2023 11:33:08 07/06/2023 13:08:25 Perennial allergic rhinitis [id number] J30.89 2711 YU ACEVEDO, [facility] Allergy [address] [facility],[address] [place] [address] 07/13/2023 13:59:04 07/13/2023 16:17:46 Perennial allergic rhinitis [id number] J30.89 3638 [facility], [facility] Allergy [address] [place] [address], [address] [place] [address] 07/20/2023 13:40:57 07/20/2023 14:41:26 Perennial allergic rhinitis [id number] J30.89 4748 YU ACEVEDO [facility] Allergy [address] [place] [address], [address] [place] [address] 07/28/2023 14:43:00 07/28/2023 15:22:03 Perennial allergic rhinitis [id number] J30.89 5647 ORVILLE PURCELL MD [facility] [place] [address] [place] [address] 08/04/2023 10:43:21 08/04/2023 11:37:12 Allergic rhinitis 48596573 J30.9 She is benefiting from immunother apy and should continue. No local or systemic reactions. Impacted c erumen in right ear [id number] 433222 H61.21 5670 [facility], [facility] Allergy [address] [place] [address], [address] [place] [address] 08/04/2023 10:49:55 08/04/2023 12:16:11 Perennial allergic rhinitis 846919131 J30.89 6379 [facility] Allergy [address] [place] [address],[address] [place] [address] 08/10/2023 14:50:37 08/10/2023 15:13:37 Perennial allergic rhinitis 993575969 J30.89 7523 CHASIDY OLIVIER RN Allergy [address] [place] [address],[address] [place] [address] 08/19/2023 13:02:50 08/19/2023 14:02:42 Perennial allergic rhinitis [id number] J30.89 8495 [facility], A Allergy [address] [facility],[address] [place] [address] 08/26/2023 13:09:41 08/26/2023 14:40:44 Perennial allergic rhinitis 813893739 J30.89 9518 [facility], A Allergy [address] [facility],[address] [place] [address] 09/02/2023 11:46:08 09/02/2023 12:14:48 Perennial allergic rhinitis 206143868 J30.89 97806 CHASIDY OLIVIER bracelet maker novelty [address] [facility],[address] [place] [address] 09/09/2023 12:01:05 09/09/2023 12:03:31 Perennial allergic rhinitis [id number] J30.89 [id number] [facility], A Allergy [address] [facility],[address] [place] [address] 09/16/2023 14:06:37 09/16/2023 14:09:55 Perennial allergic rhinitis [id number] J30.89 63103 YU ACEVEDO A Allergy [address] [place] [address],[address] [place] [address] 09/23/2023 13:46:12 09/23/2023 15:15:35 Perennial allergic rhinitis [id number] J30.89 43834 YU ACEVEDO [facility] Allergy [address] [place] [address],[address] [place] [address] 10/01/2023 10:32:08 10/01/2023 11:08:50 Perennial allergic rhinitis 549302959 J30.89 [id number] [facility], A Allergy [address] [facility],[address] [place] [address] 10/08/2023 11:32:22 10/08/2023 11:35:11 Perennial allergic rhinitis [id number] J30.89 11102 YU ACEVEDO [facility] Allergy [address] [facility],[address] [place] [address] 10/21/2023 11:40:28 10/21/2023 11:45:15 Perennial allergic rhinitis [id number] J30.89 73333 [facility], [facility] Allergy [address] [facility],[address] [place] [address] 10/28/2023 14:45:23 10/28/2023 14:46:29 Perennial allergic rhinitis [id number] J30.89 75292 YU ACEVEDO, A Allergy [address] [facility],[address] [place] [address] 11/05/2023 12:13:34 11/05/2023 12:17:02 Perennial allergic rhinitis 241208045 J30.89 66303 CHASIDY OLIVIER RN Allergy [address] [facility],[address] [place] [address] 11/11/2023 09:14:13 11/11/2023 09:15:31 Perennial allergic rhinitis [id number] J30.89 47460 YU ACEVEDO A Allergy [address] [place] [address],[address] [place] [address] 11/18/2023 11:51:09 11/18/2023 11:54:40 Perennial allergic rhinitis 778941751 J30.89 [id number] [facility], A Allergy [address] [facility],[address] [place] [address] 11/25/2023 11:40:11 11/25/2023 11:42:27 Perennial allergic rhinitis 248602942 J30.89 24439 CHASIDY OLIVIER RN Allergy [address] [facility],[address] [place] [address] 11/30/2023 11:27:30 11/30/2023 11:29:40 Perennial allergic rhinitis [id number] J30.89 [id number] [facility], A Allergy [address] [facility],[address] [place] [address] 12/09/2023 11:40:30 12/09/2023 11:45:14 Perennial allergic rhinitis [id number] J30.89 31749 YU ACEVEDO A Allergy [address] [facility],[address] [place] [address] 12/16/2023 11:19:05 12/16/2023 11:25:34 Perennial allergic rhinitis [id number] J30.89 21106 BABS JUSTO, [facility] Allergy [address] [facility],[address] [place] [address] 12/23/2023 11:40:45 12/23/2023 11:41:56 Perennial allergic rhinitis [id number] J30.89 61763 YU KRISTINA [facility] Allergy [address] [facility],[address] [place] [address] 12/30/2023 12:05:49 12/30/2023 12:09:12 Perennial allergic rhinitis [id number] J30.89 64280 [facility] Allergy [address] [facility],[address] [place] [address] 01/05/2024 13:21:18 01/05/2024 13:23:23 Perennial allergic rhinitis [id number] J30.89 [id number] [facility] All[facility] [address] [facility],[address] [place] [address] 01/13/2024 14:30:08 01/13/2024 14:31:30 Perennial allergic rhinitis [id number] J30.89 [id number] YUKIRAN ACEVEDO [facility] Allergy [address] [place] [address],[address] [place] [address] 01/20/2024 13:35:13 01/20/2024 13:37:34 Perennial allergic rhinitis [id number] J30.89 58559 CHASIDY OLIVIER bracelet maker novelty [address] [facility],[address] [place] [address] 01/27/2024 09:07:15 01/27/2024 09:14:27 Perennial allergic rhinitis [id number] J30.89 94967 [facility] Allergy [address] [facility],[address] [place] [address] 02/10/2024 14:26:51 02/10/2024 14:35:04 Perennial allergic rhinitis [id number] J30.89 37546 [facility] 100 [facility],[address] [place] [address] 02/15/2024 11:08:17 02/15/2024 11:17:45 Perennial allergic rhinitis [id number] J30.89 19343 YU KRISTINA, [facility] Allergy [address] [facility],[address] [place] [address] 02/24/2024 11:29:38 02/24/2024 11:31:30 Perennial allergic rhinitis [id number] J30.89 34954 YU KRISTINA, [facility] Allergy [address] [facility],[address] [place] [address] 03/02/2024 12:01:42 03/02/2024 12:02:49 Perennial allergic rhinitis [id number] J30.89 37551 CHASIDY OLIVIER RN Allergy [address] [place] [address],[address] [place] [address] 03/10/2024 12:04:55 03/10/2024 12:06:11 Perennial allergic rhinitis [id number] J30.89 12236 [facility] [address] [facility],[address] [place] [address] 03/23/2024 15:32:06 03/23/2024 15:33:20 Perennial allergic rhinitis [id number] J30.89 70508 CHASIDY OLIVIER RN Allergy [address] [place] [address],[address] [place] [address] 03/31/2024 13:19:12 03/31/2024 13:20:14 Perennial allergic rhinitis [id number] J30.89 53585 CHASIDY OLIVIER RN Allergy [address] [place] [address],[address] [place] [address] 04/07/2024 15:27:56 04/07/2024 15:28:48 Perennial allergic rhinitis [id number] J30.89 39766 BABS KEMP, [facility] Allergy [address] [facility],[address] [place] [address] 04/14/2024 12:11:58 04/14/2024 12:14:41 Perennial allergic rhinitis [id number] J30.89 Health Concerns Section Related Observation LastModified by Organization Detai ls LastModified Time None Recorded Concern Status LastModified by Organization Details LastModified Time None Recorded Advance Directives Directive None Recorded Payers Encounter Date Sequence Insurance Name Policy Number Policy Monet Covered Member ID Monet Member ID Guarantor Name 03/10/2024 1 [place] Desire Marrero [id number] Desire Marrero 03/23/2024 1 [place] Desire Marrero [id number] Desire Marrero 03/31/2024 1 [place] Desire Marrero [id number] Desire Marrero 04/07/2024 1 [place] Desire Marrero [id number] Desire Marrero 04/14/2024 1 [place] Desire Marrero [id number] Desire Marrero OBGyn Episode No OBEpisode recorded.
--- OUTSIDE RECORDS SUMMARY | 2024-04-20 18:55 | XMS_ITS | Encounter Summary ---
Author Organization [employer] Address [address] [place] [address] Care Team Providers Care Frame Sample And Pattern Supervisor Name Role Phone Roberta Burroughs MD Primary Care Pro vider Gonsalo Unger Unavailable Unavailable Reason for Visit * Reason Comments Med Change Request Encounter Details Date Type Department Care Team ([facility] st Contact Info) Description 04/11/2024 Refill [facility] [address] [place], [place] [phone] Karina Eaton MD [address] [place], [place] [phone] Social History Tobacco Use Types Packs/Day Years [...] is your housing situation today? I have robbypatricia cornelius 10/06/[address] you [...] Description 06/27/2024 11:30 AM EDT Office Visit [facility] [address] [place] [address] Roberta Burroughs MD [address] [place] [phone] documented as of this encounter Visit Diagnoses Not on filedocumented in this encounter Additional Health Concerns Assessment Noted Time PHQ-9 Depression Total Score: 17 024 11:32 AM EDT documented as of this encounter Care Teams Frame Sample And Pattern Supervisor Relationship Specialty Start Date End Date Roberta Burroughs MD [address] [place] [phone] PCP - General Internal Medicine 08/05/22 Gonsalo Unger FNP [address] [place] [phone] Nurse Practitioner Family Medicine 12/28/22 documented as of this encounter
--- OUTSIDE RECORDS SUMMARY | 2024-04-20 18:55 | XMS_ITS | Encounter Summary ---
Author Organization [employer] Address [address] [place] [address] Care Team Providers Care Blue Crabber Name Role Phone Roberta Burroughs MD Primary Care Pro vider Gonsalo Unger Unavailable Unavailable Reason for Visit * Reason Comments Dizziness Encounter Details Date Type Department Care Team ([facility] st Contact Info) Description 03/31/2024 3:20 PM EST Office Visit [facility] [address] [place] [address] [phone] Name, MD Derek [address] [place] [address] Vertigo (Primary Dx) Social History Tobacco Use Types Packs/Day Years [...] your housing situation today? I have robby sing 10/06/[address] you li [...] AM EDT documented as of this encounter Last Filed Vital Signs Vital Sign Reading Time Taken Comments Blood Pressure 130/89 03/31/2024 3:22 PM EST Pulse 65 03/31/2024 3:22 PM EST Temperature 36.7 ??C (98 ??F) 03/31/2024 3:22 PM EST Respiratory Rate 18 03/31/2024 3:22 PM EST Oxygen Saturation 99% 03/31/2024 3:22 PM EST Inhaled Oxygen Concentration - - Weight 102 kg (225 lb) 03/31/2024 3:22 PM EST Height - - Body Mass Index 39.86 01/04/2024 2:34 PM EST documented in this encounter Progress Notes * Derek Trujillo MD - 03/31/2024 3:20 PM EST Subjective Patient ID: Catalina Knutson is a 38 y.o. female who presents for Dizziness. Patient comes for a sick visit. The patient had episode of vertigo last night. Symptoms were associated with nausea, sweats and colic pain abdominal pain, she has one BM last night. She is asymptomatic by the time of her visit. She does not have any ear discomfort or decreased hearing. She has a history of recurrent vertigo associated with migraine headaches. She was prescribed meclizine in the past but ran out. Review of Systems Constitutional: Negative for chills and fever. HENT: Negative for sore throat. Respiratory: Negative for cough, shortness of breath and wheezing. Cardiovascular: Negative for chest pain, palpitations and leg swelling. Gastrointestinal: Negative for abdominal pain. Visit Vitals BP 130/89 (BP Location: Right arm, Patient Position: Sitting, BP Cuff Size: Large adult) Pulse 65 Temp 98 ??F (36.7 ??C) (Oral) Resp 18 Wt 225 lb (102 kg) SpO2 99% BMI 39.86 kg/m?? OB Status Having periods Smoking Status Never BSA 2.13 m?? Objective Physical Exam Constitutional: Appearance: Normal appearance. HENT: Right Ear: Tympanic membrane normal. Left Ear: Tympanic membrane normal. Cardiovascular: Rate and Rhythm: Normal rate and regular rhythm. Heart sounds: No murmur heard. No gallop. Pulmonary: Effort: Pulmonary effort is normal. No respiratory distress. Breath sounds: Normal breath sounds. No wheezing. Musculoskeletal: Right lower leg: No edema. Left lower leg: No edema. Neurological: General: No focal deficit present. Mental Status: She is alert. Motor: No weakness. Assessment/Plan Diagnoses and all orders for this visit: Vertigo Comments: Patient symptoms are consistent with vertigo. This is a recurrent problem for her. She has a history of migrainous vertigo in the past. I recommended rest and course of meclizine. We discussed sedative side effects of medication. She is encouraged to call if not much better by next week. Flu testing is negative today. Orders: - meclizine (Antivert) 25 MG tablet; Take 1 tablet (25 mg) by mouth if needed in the morning, at noon, and at bedtime for dizziness. - Influenza A (ID NOW Rapid Molecular) - Influenza B (ID NOW Rapid Molecular) documented in this encounter Plan of Treatment Upcoming Encounters Date Type Department Care Team (Late st Contact Info) Description 06/27/2024 11:30 AM EDT Office Visit [facility] [address] [place] [address] Roberta Burroughs MD [address] [place] [address] documented as of this encounter Procedures Procedure Name Priority Date/Time Associated Diagnosis Comments POCT INFLUENZA B (ID NOW RAPID MOLECULAR) Routine 03/31/2024 3:41 PM EST Vertigo POCT INFLUENZA A (ID NOW RAPID MOLECULAR) Routine 03/31/2024 3:41 PM EST Vertigo documented in this encounter Results * Influenza B (ID NOW Rapid Molecular) (03/31/2024 3:41 PM EST) Influenza B Negative Negative, Indeterminate [facility] Swab 03/31/2024 3:41 PM EST us Derek Trujillo MD POINT OF CARE TEST ENTER/EDIT OR DERABLES Final Result Performing Organization Address [facility]/ZIP Co de Phone Number [facility] [address] [place] [phone] * Influenza A (ID NOW Rapid Molecular) (03/31/2024 3:41 PM EST) Influenza A Negative Negative, Indeterminate [facility] Swab 03/31/2024 3:41 PM EST Derek Trujillo MD POINT OF CARE TEST ENTER/EDIT OR DERABLES Final Result Performing Organization Address [facility]/ZIP Co de Phone Number [facility] [address] [place] [phone] documented in this encounter Visit Diagnoses Diagnosis Vertigo- Primary Dizziness and giddiness documented in this encounter Additional Health Concerns Assessment Noted Time PHQ-9 Depression Total Score: 17 024 11:32 AM EDT documented as of this encounter Care Teams Blue Crabber Relationship Specialty Start Date End Date Roberta Burroughs MD [address] [place] [address] PCP - General Internal Medicine 08/05/22 Gonsalo Unger FNP [address] [place] [phone] Nurse Practitioner Family Medicine 12/28/22 documented as of this encounter
--- OUTSIDE RECORDS SUMMARY | 2024-04-20 18:55 | XMS_ITS | Encounter Summary ---
Author Organization [employer] Address [address] 7[address] [place] [address] Care Team Providers Care Network Designer Name Role Phone Roberta Burroughs MD Primary Care Pro vider Gonsalo Unger Unavailable Unavailable Reason for Visit * Reason Onset Date Comments May recall 03/30/2024 Encounter Details Date Type Department Care Team ([facility] st Contact Info) Description 03/30/2024 Telephone [facility] [address] [place] [address] Мария Bello MA May recall Social History Tobacco Use Types Packs/Day Years [...] encounter Miscellaneous Notes * Telephone Encounter - Мария Bello MA - 03/30/2024 1:29 PM EST Telephone call to patient to schedule the following recall: Visit type: Office visit Appointment notes: med follow up Patient agree to appointment on 06/27/24 at 11:30 AM with Abelardo. documented in this encounter Plan of Treatment Upcoming Encounters Date Type Department Care Team ([facility] st Contact Info) Description 06/27/2024 11:30 AM EDT Office Visit [facility] MED[facility]INE [address] [place] [phone] Roberta Burroughs MD [address] [place] [address] documented as of this encounter Visit Diagnoses Not on filedocumented in this encounter Additional Health Concerns Assessment Noted Time PHQ-9 Depression Total Score: 17 024 11:32 AM EDT documented as of this encounter Care Teams Network Designer Relationship Specialty Start Date End Date Roberta Burroughs MD [address] [place] [address] PCP - General Internal Medicine 08/05/22 Gonsalo Unger FNP [address] [place] [phone] Nurse Practitioner Family Medicine 12/28/22 documented as of this encounter
--- OUTSIDE RECORDS SUMMARY | 2024-04-20 18:55 | XMS_ITS | Continuity of Care Document ---
Author Organization [place] [facility] Address [address] [place] [phone] Assessment Encounter Date Assessment Date Assessment LastModified by Organization Details LastModified Time 04/14/2024 04/14/2024 Visit With: KOURTNEY Medina Use of Antihistamine s: No If yes: Vial Test Change in medications: No If yes ? ? ? Increase in asthma symptoms If yes, inhaler use: Reaction to last injections: No If yes: ? ? ? Allergy Symptoms: Other: ? ? ? Missed: Dose Aware of Vial Test Notes:? ? ? [email or web address] Not available 04/14/2024 12:14:14 Plan of Treatment Reminders Order Date Submit Date Provider Last Modified By Organization Details Last Modified Time Details Appointments [facility]- Allergy f-up 6mon 2024 11:00A M SANDRO HENLEY MD Not available Not available Not [...] Address Organization Details Recorded Time Acute sinusitis 17124781 Active 2020 Acute sinusitis , unspecifi ed; Note: Date Diagnosed : 05/10/2020 3:30 PM (J01.90) Not Available [facility] 03:13:59 Deviated nasal septum 869794373 Active 2018 Deviated nasal septum; Note: Date Diagnosed : 07/05/2018 11:43 AM (J34.2) Not Available [facility] 4 03:13:58 Chronic rhinitis 21052579 Active 2020 Chronic rhinitis; Note: Date Diagnosed : 01/09/2021 3:05 PM (J31.0) Not Available [facility] 4 03:13:58 Headache 08780992 Active 2019 Facial pain NOS; Note: Date Diagnosed : 02/10/2019 1:37 PM (R51) Not Available [facility] 4 03:13:58 Nasal congestio n 43229144 Active 2018 Nasal congestio n; Note: Date Diagnosed : 07/05/2018 11:43 AM (R09.81) Not Available [facility] 4 03:13:58 Polyp of nasal cavity 005620586 Active 2021 Polyp of nasal cavity; Note: Date Diagnosed : 03/13/2021 11:28 AM (J33.0) Not Available [facility] 4 03:13:57 Allergic rhinitis 19504487 Active 2023 Allergic rhinitis: Due to other [...] ; Start Date : 9 Not Available [facility] 4 01:24:27 Otalgia of right ear 2339129828 Active 2019 Otalgia, right ear; Note: Date Diagnosed : 12/11/2019 2:59 PM (H92.01) Not Available [facility] 4 03:13:59 Perennial allergic rhinitis 491121351 Active 2023 LEANNA ACEVEDO [address] [address], [place], [address] , [facility] - [facility] 4 11:04:09 Impacted cerumen in right ear [id number] 379[address] Active 2023 ORVILLE PURCELL MD [address] [place] [address], [place], [address] , [facility] - [facility] 4 11:08:25 Problem Notes None recorded. Procedures Surgical History Date Name Laterality Status Provider Name and Address Organization Details Recorded Time 04/15/19 25 Allergy Immunotherapy Injections completed BABS DUNCAN [facility] [address] [facility],[address], [address], [facility] - [facility] 04/14/2024 12:13:53 04/07/19 25 Allergy Immunotherapy Injections completed CHASIDY OLIVIER RN [address], [address], [place] - [facility] 04/07/2024 15:28:25 03/31/19 25 Allergy Immunotherapy Injections completed CHASIDY OLIVIER RN [address],[place] [address], [place], [address], [place] [facility] 03/31/2024 13:19:41 03/23/19 25 Allergy Immunotherapy Injections completed BABS DUNCAN RMA [address],[place] [address], [place], [address], [place] [facility] 03/23/2024 15:32:40 03/10/19 25 Allergy Immunotherapy Injections completed CHASIDY OLIVIER RN [address],[place] [address] [place] [address], [phone], [place] [facility] 03/10/2024 12:05:52 03/02/19 25 Allergy Immunotherapy Injections completed KOURTNEY MANCINI [address],[place] [address] [place] [address], [phone], [place] [facility] 03/02/2024 12:02:23 02/23/19 25 Allergy Immunotherapy Injections completed KOURTNEY MANCINI [address],[place] [address] [place] [address], [phone], [place] [facility] 02/24/2024 11:30:40 02/14/19 25 Allergy Immunotherapy Injections completed BABS DUNCAN RMA [address],[place] [address], [place], [address], [place] [facility] 02/15/2024 11:08:53 02/09/19 25 Allergy Immunotherapy Injections completed BABS DUNCAN RMA [address],[place] [address], [place], [address], [place] [facility] 02/10/2024 14:28:06 01/27/20 24 Allergy Immunotherapy Injections completed CHASIDY OLIVIER RN [address],[place] [address], [place], [address], [place] [facility] 01/27/2024 09:07:49 01/20/20 24 Allergy Immunotherapy Injections completed LEANNA KRISTINA, RMA [address],[place] [address], [place], [address], [place] [facility] 01/20/2024 13:36:07 01/13/20 24 Allergy Immunotherapy Injections completed BABS DUNCAN, RMA [address],[place] [address], [place], [address], [place] [facility] 01/13/2024 14:30:51 01/05/20 24 Allergy Immunotherapy Injections completed BABS DUNCAN, RMA [address],[place] [address], [place], [address], [place] [facility] 01/05/2024 13:22:16 12/30/19 24 Allergy Immunotherapy Injections completed KOURTNEY MANCINI [address],[place] [address], [place], [address], [place] [facility] 12/30/2023 12:06:22 12/23/19 24 Allergy Immunotherapy Injections completed BABS DUNCAN RMA [address] [place] [address] [place] [address], [phone], [place] [facility] 12/23/2023 11:41:23 12/16/19 24 Allergy Immunotherapy Injections completed KOURTNEY MANCINI [address],[place] [address] [place] [address], [address], [place] [facility] 12/16/2023 11:21:05 12/09/19 24 Allergy Immunotherapy Injections completed BABS DUNCAN RMA [address] [place] [address] [place] [address], [address], [place] [facility] 12/09/2023 11:41:30 11/30/19 24 Allergy Immunotherapy Injections completed CHASIDY OLIVIER RN [address],[place] [facility], [place], [address], [place] [facility] 11/30/2023 11:29:17 11/25/19 24 Allergy Immunotherapy Injections completed BABS DUNCAN RMA [address],[place] [address], [place], [address], [place] [facility] 11/25/2023 11:41:02 11/18/19 24 Allergy Immunotherapy Injections completed LEANNA KRISTINA, RMA [address],[place] [address], [place], [address], [place] [facility] 11/18/2023 11:51:54 11/11/19 24 Allergy Immunotherapy Injections completed CHASIDY OLIVIER RN [address], [place], [address], [place] [facility] 11/11/2023 09:15:07 11/05/19 24 Allergy Immunotherapy Injections completed VICTORIANO MANCINIA [address], [place], [address], [place] [facility] 11/05/2023 12:14:13 10/28/19 24 Allergy Immunotherapy Injections completed BABS DUNCAN RMA [address],[place] [address], [place], [address], [place] [facility] 10/28/2023 14:45:57 10/21/19 24 Allergy Immunotherapy Injections completed KOURTNEY MANCINI [address],[place] [address], [place], [address], [place] [facility] 10/21/2023 11:41:17 10/08/19 24 Allergy Immunotherapy Injections completed BABS DUNCAN RMA [address],[place] [address], [place], [address], [place] [facility] 10/08/2023 11:33:35 10/01/19 24 Allergy Immunotherapy Injections completed VICTORIANO MANCINIA [address],[place] [address], [place], [address], [place] [facility] 10/01/2023 10:32:59 09/23/19 24 Allergy Immunotherapy Injections completed LEANNA ACEVEDO RMA [address],[place] [address], [place], [address], [place] [facility] 09/23/2023 13:46:52 09/16/19 24 Allergy Immunotherapy Injections completed BABS DUNCAN RMA [address], [place], [address], [place] [facility] 09/16/2023 14:07:22 09/09/19 24 Allergy Immunotherapy Injections completed CHASIDY OLIVIER RN [address],[place] [address], [place], [address], [place] [facility] 09/09/2023 12:03:04 09/02/19 24 Allergy Immunotherapy Injections completed BABS DUNCAN RMA [address],[place] [address], [place], [address], [place] [facility] 09/02/2023 11:46:51 08/26/19 24 Allergy Immunotherapy Injections completed BABS DUNCAN RMA [address],[place] [address], [place], [address], [place] [facility] 08/26/2023 13:11:56 08/19/19 24 Allergy Immunotherapy Injections completed CHASIDY OLIVIER RN [address],[place] [address] [place] [address], [address], [place] [facility] 08/19/2023 14:02:06 08/10/19 24 Allergy Immunotherapy Injections completed BABS DUNCAN [facility] [address] [place] [address] [place] [address], [address], [facility] - [facility] 08/10/2023 15:12:45 08/04/19 24 Allergy Immunotherapy Injections completed BABS DUNCAN [facility] [address] [place] [address] [place] [address], [address], [facility] - [facility] 08/04/2023 12:15:15 08/04/19 24 Cerumen removal without microscope completed ORVILLE PURCELL MD [address] [place] [address] [place] [address], [address], [facility] - [facility] 08/04/2023 11:08:52 07/28/19 24 Allergy Immunotherapy Injections completed KOURTNEY MANCINI [address],[place] [address] [place] [address], [address], [place] [facility] 07/28/2023 15:01:20 07/20/19 24 Allergy Immunotherapy Injections completed BABS DUNCAN RMA [address],[place] [address] [place] [address], [address], [place] [facility] 07/20/2023 14:23:42 07/13/19 24 Allergy Immunotherapy Injections completed KOURTNEY MANCINI [address] [place],[address], [place], [address], [place] [facility] 07/13/2023 13:59:55 07/06/19 24 Allergy Immunotherapy Injections completed VICTORIANO MANCINIA [address], [place], [address], [place] [facility] 07/06/2023 12:17:36 06/29/19 24 Allergy Immunotherapy Injections completed VICTORIANO MANCINIA [address] [place],[address], [place], [address], [place] [facility] 06/29/2023 11:04:40 Imaging Results None recorded. Procedure Notes None recorded. Medical Equipment None Reported. Medications Name Sig Start Date Stop Date Status Note LastModified by Organization Details LastModified Time prednison e 10 mg tablet Take as directed 2022 active Medicati on ID: [id number] D uration Value: 12 Brand Name: predniso [...] % shampoo 2021 active Medicati on ID: [id number] B rand Name: ketocona zole Sen d [...] eye drops 06/16 completed Medicati on ID: [id number] B rand Name: ketotife n fumarate Send [...] eye drops 2021 active Medicati on ID: [id number] B rand Name: cromolyn Send Method: E-Prescr [...] a day 2021 active Medicati on ID: [id number] D uration Value: 7 Brand Name: ofloxaci n Send Method: E-Prescr ibed Sub s Allowed: subs OK Speci al Instruct ion: x 7 days Med [facility] enericNa me: ofloxaci n Not Available Not [...] mg tablet 03/13 completed Medicati on ID: [id number] D uration Value: 15 Brand Name: ruddy navarro Send Method: E-Prescr ibed Sub s Allowed: subs OK Speci al Instruct ion: TAKE 1 TABLET TWICE DAILY NEEDED M edicatio nGeneric Name: lorazepa m Not Available Not Available Not Available cyanocoba santy (vit B-12) 500 mcg tablet 06/16 completed Medicati on ID: [id number] B rand Name: cyanocob alamin (vitamin B-12) [...] spray aerosol 06/16 completed Medicati on ID: [id number] B rand Name: triamcin olone acetonid e Send Method: E-Prescr ibed Sub s Allowed: subs OK Speci al Instruct ion: TAKE 2 SPRAYS INTO EACH NOSTRIL EVERY DAY Medi [facility] nericNam e: triamcin olone acetonid e Not [...] as directed 2021 active Medicati on ID: [id number] D uration Value: 30 Prescri bed By [...] 1 tablet 2021 active Medicati on ID: [id number] D uration Value: 14 Prescri bed By [...] mg tablet 03/13 completed Medicati on ID: [id number] B rand Name: Fiber-La x Send Method: [...] unit) capsule 03/13 completed Medicati on ID: [id number] D uration Value: 30 Brand Name: Vitamin [...] extended release 2021 active Medicati on ID: [id number] B rand Name: bupropio n HCl Send [...] HFA aerosol inhaler active Medicati on ID: [id number] B rand Name: Symbicor t Send Method: [...] SNOMED-CT Code Diagnosis ICD10 Code Diagnosis Note [id number] BABS KORZEC, RMA Allergy [address],[place] [address] [place] [address] 03/23/2024 15:32:06 03/23/2024 15:33:20 Perennial allergic rhinitis [id number] J30.89 [id number] CHASIDY OLIVIER RN Allergy [address] [place] [address], [address] [place] [address] 03/31/2024 13:19:12 03/31/2024 13:20:14 Perennial allergic rhinitis [id number] J30.89 [id number] CHASIDY OLIVIER RN Allergy [address] [place] [address], [address] [place] [address] 04/07/2024 15:27:56 04/07/2024 15:28:48 Perennial allergic rhinitis 692506003 J30.89 [id number] BABS DUNCAN, [facility] Allergy [address] [place] [address], [address] [place] [address] 04/14/2024 12:11:58 04/14/2024 12:14:41 Perennial allergic rhinitis [id number] J30.89 Health Concerns Section Related Observation LastModified by Organization Detai ls LastModified Time None Recorded Concern Status LastModified by Organization Details LastModified Time None Recorded Payers Encounter Date Sequence Insurance Name Policy Number Policy Monet Covered Member ID Monet Member ID Guarantor Name 04/14/2024 1 [place] [facility] Desire Marrero [id number] Desire Marrero OBGyn Episode No OBEpisode recorded.
--- OUTSIDE RECORDS SUMMARY | 2024-04-20 18:55 | XMS_ITS | Encounter Summary ---
Author Organization [employer] Address [address] 7t [place] [address] Care Team Providers Care Starter Mechanic Name Role Phone Roberta Burroughs MD Primary Care Pro vider Gonsalo Unger Unavailable Unavailable Encounter Details Date Type Department Care Team (Late st Contact Info) Description 03/30/2024 Orders Only [facility] External Provider, [facility] Social History Tobacco Use Types Packs/Day Years [...] t he electric, gas, oil or water [employer] threatened to shut off services in your [...] Upcoming Encounters Date Type Department Care Team ([facility] st Contact Info) Description 06/27/2024 11:30 AM EDT Office Visit [facility] [address] [place] [address] Roberta Burroughs MD [address] [place] [address] documented as of this encounter Procedures Procedure Name Priority Date/Time Associated Diagnosis Comments XR SHOULDER 2+ VIEWS RIGHT Routine 03/31/2024 11:42 AM EST documented in this encounter Results * XR Shoulder 2+ Views Right (03/31/2024 11:42 AM EST) Anatomical Region Laterality Modality Upper Extremities, Shoulder Right Radi ographic Imaging 03/31/2024 11:4 2 AM EST Narrative 03/31/2024 11:43 AM EST ? [facility] ?[address] ?[place] [address] ?XRay Report ? Signed ? Patient: Marrero Eamon,Desire ?MR#: ?? [id number] ? : 1985 ?Acct:[id number] ? Age/Sex: 38 / F ?ADM Date: 02/20/25 ? Loc: HO.XRAY ? Attending Dr: Veronica DALY ? Ordering Physician: Veronica Espinoza ?? Date of Service: 03/30/24 ?? Procedure(s): XR shoulder RT min 2V ?? Accession Number(s): [id number] ? cc: Veronica Espinoza; Roberta Burroughs MD [...] DD/ 1142 ? TD/TT: 03/31/24 1142 ? County Judge: ? Procedure Note Mary Alice, Image - 03/31/2024 [place] [address] XRay Report Signed Patient: Janes KnutsonCatalina#: [id number] : 1985Acct:[id number] Age/Sex: 38 / FADM Date: 03/30/24 Loc: [facility] Attending Dr: Veronica DALY Ordering Physician: Veronica Espinoza Date of Service: 03/30/24 Procedure(s): XR shoulder RT min 2V Accession Number(s): [id number] cc: Veronica Espinoza; Roberta Burroughs MD CLINICAL [...] 03/31/24 1143 DD/ 1142 TD/TT: 03/31/24 1142 County Judge: [facility] External Provider IMG XR PROCEDURES Final Result documented in this encounter Visit Diagnoses Not on filedocumented in this encounter Additional Health Concerns Assessment Noted Time PHQ-9 Depression Total Score: 17 024 11:32 AM EDT documented as of this encounter Care Teams Starter Mechanic Relationship Specialty Start Date End Date Roberta Burroughs MD [address] [place] [address] PCP - General Internal Medicine 08/05/22 Gonsalo Unger FNP [address] [place] [address] Nurse Practitioner Family Medicine 12/28/22 documented as of this encounter
--- OUTSIDE RECORDS SUMMARY | 2024-04-20 18:55 | XMS_ITS | Encounter Summary ---
Author Organization [employer] Address [address] [place] [address] 7t [place] [address] Care Team Providers Care Aircraft Instrument Tester Name Role Phone Roberta Burroughs MD Primary Care Pro vider Gonsalo Unger Unavailable Unavailable Reason for Visit * Reason Comments Med Refill Encounter Details Date Type Department Care Team (Late st Contact Info) Description 04/20/2024 Refill [facility] [address] [place], [place] [phone] Roberta Burroughs MD [address] [place], [place] [phone] Cobalamin deficiency Social History Tobacco Use Types Packs/Day Years [...] Description 06/27/2024 11:30 AM EDT Office Visit [facility] [address] [place] [address] Roberta Burroughs MD [address] [place] [phone] documented as of this encounter Visit Diagnoses Diagnosis Cobalamin deficiency Other B-complex deficiencies documented in this encounter Additional Health Concerns Assessment Noted Time PHQ-9 Depression Total Score: 17 024 11:32 AM EDT documented as of this encounter Care Teams Aircraft Instrument Tester Relationship Specialty Start Date End Date Roberta Burroughs MD [address] [place] [address] PCP - General Internal Medicine 08/05/22 Gonsalo Unger FNP [address] [place] [address] Nurse Practitioner Family Medicine 12/28/22 documented as of this encounter
--- OUTSIDE RECORDS SUMMARY | 2024-04-20 18:55 | XMS_ITS | Encounter Summary ---
Author Organization [employer] Address [address] 7[address] [place] [address] Care Team Providers Care Volunteer Services Supervisor Name Role Phone Roberta Burroughs MD Primary Care Pro vider Gonsalo nUger Unavailable Unavailable Reason for Visit * Reason Comments Med Change Request Encounter Details Date Type Department Care Team ([facility] st Contact Info) Description 04/12/2024 Refill [facility] [address] [place], [place] [phone] Karina Eaton MD [address] [place] [address] Chronic pain of both shoulders Social History Tobacco Use Types Packs/Day Years [...] 06/27/2024 11:30 AM EDT Office Visit [facility] [address] [place] [address] Roberta Burroughs MD [address] [place] [address] documented as of this encounter Visit Diagnoses Diagnosis Chronic pain of both shoulders documented in this encounter Additional Health Concerns Assessment Noted Time PHQ-9 Depression Total Score: 17 024 11:32 AM EDT documented as of this encounter Care Teams Volunteer Services Supervisor Relationship Specialty Start Date End Date Roberta Burroughs MD [address] [place] [address] PCP - General Internal Medicine 08/05/22 Gonsalo Unger FNP [address] [place] [address] Nurse Practitioner Family Medicine 12/28/22 documented as of this encounter
--- OUTSIDE RECORDS SUMMARY | 2024-04-20 18:55 | XMS_ITS | Encounter Summary ---
Author Organization [employer] Address [address] [place] [address] 7t [place] [address] Care Team Providers Care Customer Success Advocate Name Role Phone Roberta Burroughs MD Primary Care Pro vider Gonsalo Unger Unavailable Unavailable Reason for Visit * Reason Comments Med Refill Encounter Details Date Type Department Care Team (Late st Contact Info) Description 04/12/2024 Refill [facility] [address] [place], [place] [phone] Roberta Burroughs MD [address] [place] [address] Chronic pain of both shoulders Social History [...] 11:30 AM EDT Office Visit [facility] [address] [place] [address] Roberta Burroughs MD [address] [place] [address] documented as of this encounter Visit Diagnoses Diagnosis Chronic pain of both shoulders documented in this encounter Additional Health Concerns Assessment Noted Time PHQ-9 Depression Total Score: 17 024 11:32 AM EDT documented as of this encounter Care Teams Customer Success Advocate Relationship Specialty Start Date End Date Roberta Burroughs MD [address] [place] [address] PCP - General Internal Medicine 08/05/22 Gonsalo Unger FNP [address] [place] [address] Nurse Practitioner Family Medicine 12/28/22 documented as of this encounter
--- OUTSIDE RECORDS SUMMARY | 2024-04-20 18:55 | XMS_ITS | Encounter Summary ---
Author Organization [employer] Address [address] [facility] [address] 7t [place] [address] Care Team Providers Care Gypsum Block Setter Name Role Phone Vida Van Primary Care Provider [phone] Roberta Burroughs MD Primary Care Pro vider Gonsalo Unger Unavailable Unavailable Encounter Details Date Type Department Care Team ([facility] Contact Info) Description 02/04/[address] [facility] [address] [place] [phone] Vida Van FNP [address] [facility] Dept [place] [address] Social History Tobacco Use Types Packs/Day Years [...] Upcoming Encounters Date Type Department Care Team ([facility] Contact Info) Description 06/27/2024 11:30 AM EDT Office Visit [facility] [address] [place] [address] Roberta Burroughs MD [address] [place] [address] documented as of this encounter Visit Diagnoses Not on filedocumented in this encounter Additional Health Concerns Assessment Noted Time PHQ-9 Depression Total Score: 20 022 2:35 PM EST documented as of this encounter Care Teams Gypsum Block Setter Relationship Specialty Start Date End Date Vida Van FNP PCP - General Family Medicine 10/06/21 08/04/22 Roberta Burroughs MD [address] [place] [address] PCP - General Internal Medicine 08/05/22 Gonsalo Unger FNP [address] [place] [address] Nurse Practitioner Family Medicine 12/28/22 documented as of this encounter
--- OUTSIDE RECORDS SUMMARY | 2024-04-20 18:55 | XMS_ITS | Clinical Summary ---
Author Organization [facility] Address [address] [place] [address] Care Team Providers Care Pantry Worker Name Role Phone Gonsalo Unger NP Primary Care Provider [phone] Social History Tobacco Use Types Packs/Day Years [...] age to complete this topic Care Teams Pantry Worker Relationship Specialty Start Date End Date Gonsalo Unger NP [address] [place], [place] PCP - General Internal Medicine 06/24/16
--- OUTSIDE RECORDS SUMMARY | 2024-04-20 18:55 | XMS_ITS | Encounter Summary ---
Author Organization [employer] Address [address] 7[address] [place] [address] Care Team Providers Care Social Media Content Specialist Name Role Phone Vida Van Lauren GAS OPERATION MANAGER Primary Care Provider [phone] Roberta Burroughs MD Primary Care Pro vider Gonsalo Unger GAS OPERATION MANAGER Unavailable Unavailable Encounter Details Date Type Department Care Team ([facility] Contact Info) Description 01/13/2022 Abstract [facility] [address] [place] [phone] Ashley Badillo, RN [address] [place], [place] [phone] Social History Tobacco Use Types Packs/Day Years [...] Encounters Date Type Department Care Team (Late Contact Info) Description 06/27/2024 11:30 AM EDT Office Visit [facility] [address] [place] [address] [phone] Roberta Burroughs MD [address] [place] [address] documented as of this encounter Visit Diagnoses Not on filedocumented in this encounter Additional Health Concerns Assessment Noted Time PHQ-9 Depression Total Score: 20 022 2:35 PM EST documented as of this encounter Care Teams Social Media Content Specialist Relationship Specialty Start Date End Date Vida Van FNP PCP - General Family Medicine 10/06/21 08/04/22 Roberta Burroughs MD [address] [place] [address] PCP - General Internal Medicine 08/05/22 Gonsalo Unger FNP [address] [place] [address] Nurse Practitioner Family Medicine 12/28/22 documented as of this encounter
--- OUTSIDE RECORDS SUMMARY | 2024-04-20 18:55 | XMS_ITS | Encounter Summary ---
Author Organization [employer] Address [address] 7[address] [place] [address] Care Team Providers Care Supervisor Floor Assembly Name Role Phone Roberta Burroughs MD Primary Care Pro vider Gonsalo Unger Unavailable Unavailable Reason for Visit * Reason Comments Med Refill Encounter Details Date Type Department Care Team ([facility] st Contact Info) Description 11/10/2022 Refill [facility] [address] [place] [address] Gonsalo Unger FNP Anxious depression Social History [...] Description 06/27/2024 11:30 AM EDT Office Visit [facility] [address] [place] [address] Roberta Burroughs MD [address] [place] [address] documented as of this encounter Visit Diagnoses Diagnosis Anxious depression documented in this encounter Additional Health Concerns Assessment Noted Time PHQ-9 Depression Total Score: 10 023 2:49 PM EDT documented as of this encounter Care Teams Supervisor Floor Assembly Relationship Specialty Start Date End Date Roberta Burroughs MD [address] [place] [address] PCP - General Internal Medicine 08/05/22 Gonsalo Unger FNP [address] [place] [address] Nurse Practitioner Family Medicine 12/28/22 documented as of this encounter
== END 2024-04-20 15:14 | disposition home or self-care (01) ==
LOC: HO.MAMMO 15:13
PROVIDERS: PCP Student in an Organized Health Care Education/Training Program; Visit Provider Student in an Organized Health Care Education/Training Program
DX: Z12.31 Encounter for screening mammogram for malignant neoplasm of breast (principal)
CPT/HCPCS: 77063; 77067

== ENCOUNTER → 2024-04-20 15:30 | Outpatient (BNV) | payer MEDICAID, SELFPAY | PROVIDERS: PCP Student in an Organized Health Care Education/Training Program; Visit Provider Internal Medicine | DX: Z12.31 Encounter for screening mammogram for malignant neoplasm of breast (principal) | CPT/HCPCS: 77063; 77067 ==

== ENCOUNTER 2024-04-23 02:37 | Emergency (ER) | payer OTHER, SELFPAY ==
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
[2024-04-23 02:50] VITALS: BP 135/88; BP 168/86; PULSE 87; PULSE 92; RESP 16; TEMP 37.1; O2SAT 100; BMI 39.8
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
[2024-04-23] MEDS: Cyclobenzaprine HCl 10 MG TABLET PO (03:49)
[2024-04-23] MEDS: oxyCODONE HCl Immed Release 5 MG TABLET 10 MG PO (03:50)
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
[2024-04-23 05:31] VITALS: BP 132/72; PULSE 91; RESP 16; TEMP 36.3; O2SAT 98
[2024-04-23 06:00] VITALS: BP 132/72; PULSE 91; RESP 16; TEMP 36.3; O2SAT 98
[2024-04-23] MEDS: Bacitracin Oint 0.9 GM PACKET 1 APPL TOPICAL (06:01)
== END 2024-04-23 06:01 | disposition home or self-care (01) ==
PROVIDERS: Emergency Provider Internal Medicine; PCP Student in an Organized Health Care Education/Training Program
DX: Z04.1 Encounter for examination and observation following transport accident (principal); R51.9 Headache, unspecified; M54.2 Cervicalgia; M25.532 Pain in left wrist; M25.512 Pain in left shoulder
CPT/HCPCS: 70450; 72125; 73030; 73110; 99283; 99284

== ENCOUNTER → 2024-04-23 03:00 | Outpatient (BNV) | payer MEDICAID, SELFPAY | PROVIDERS: Emergency Provider Internal Medicine; PCP Student in an Organized Health Care Education/Training Program; Visit Provider Radiology Diagnostic Radiology | DX: M54.2 Cervicalgia (principal); R51.9 Headache, unspecified; M25.512 Pain in left shoulder; M25.531 Pain in right wrist; V89.2XXA Person injured in unspecified motor-vehicle accident, traffic, initial encounter | CPT/HCPCS: 70450; 72125; 73030; 73110 ==

== ENCOUNTER → 2024-06-05 12:10 | Outpatient (BNVA) | payer MEDICAID, OTHER, SELFPAY | PROVIDERS: PCP Student in an Organized Health Care Education/Training Program; Visit Provider Student in an Organized Health Care Education/Training Program ==

== ENCOUNTER 2024-06-05 12:42 | Outpatient (REF) | payer MEDICAID, SELFPAY ==
[2024-06-05 14:24] LABS: Thyroid Stimulating Hormone 6.24 uIU/mL (0.32-4.0)
--- OUTSIDE RECORDS SUMMARY | 2024-06-05 15:03 | XMS_ITS | Encounter Summary ---
Author Organization [employer] Address [address] [place] [address] Care Team Providers Care Fixture Repairer Fabricator Name Role Phone Vida Van Lauren CORRECTIONAL OFFICER CHIEF Primary Care Provider [phone] Roberta Burroughs MD Primary Care Pro vider Gonsalo Unger CORRECTIONAL OFFICER CHIEF Unavailable Unavailable Encounter Details Date Type Department Care Team ([facility] Contact Info) Description 01/13/2022 Abstract [facility] [address] [place] [address] [phone] Ashley Badillo, RN [address] [place], [place] [phone] Social History Tobacco Use Types Packs/Day Years [...] 11:30 AM EDT Office Visit [facility] [address] [place] [address] [phone] Roberta Burroughs MD [address] [place] [address] documented as of this encounter Visit Diagnoses Not on filedocumented in this encounter Additional Health Concerns Assessment Noted Time PHQ-9 Depression Total Score: 20 022 2:35 PM EST documented as of this encounter Care Teams Fixture Repairer Fabricator Relationship Specialty Start Date End Date Vida Van FNP PCP - General Family Medicine 10/06/21 08/04/22 Roberta Burroughs MD [address] [place] [address] PCP - General Internal Medicine 08/05/22 Gonsalo Unger FNP [address] [place] [phone] Nurse Practitioner Family Medicine 12/28/22 documented as of this encounter
--- OUTSIDE RECORDS SUMMARY | 2024-06-05 15:03 | XMS_ITS | Encounter Summary ---
Author Organization [employer] Address [address] [place] [address] Care Team Providers Care Concrete Fence Builder Name Role Phone Roberta Burroughs MD Primary Care Pro vider Gonsalo Unger Unavailable Unavailable Reason for Visit * Reason Comments Med Refill Encounter Details Date Type Department Care Team (Late st Contact Info) Description 08/11/2023 Refill [facility] [address] [place] [address] Gonsalo Unger FNP Anxious depression Social History [...] Description 06/27/2024 11:30 AM EDT Office Visit [facility] [address] [place] [phone] Roberta Burroughs MD [address] [place] [phone] documented as of this encounter Visit Diagnoses Diagnosis Anxious depression documented in this encounter Additional Health Concerns Assessment Noted Time PHQ-9 Depression Total Score: 12 024 9:17 AM EST documented as of this encounter Care Teams Concrete Fence Builder Relationship Specialty Start Date End Date Roberta Burroughs MD [address] [place] [phone] PCP - General Internal Medicine 08/05/22 Gonsalo Unger FNP [address] [place] [phone] Nurse Practitioner Family Medicine 12/28/22 documented as of this encounter
--- OUTSIDE RECORDS SUMMARY | 2024-06-05 15:03 | XMS_ITS | Encounter Summary ---
Author Organization [employer] Address [address] [place] [address] Care Team Providers Care Plasterer Rough Name Role Phone Roberta Burroughs MD Primary Care Pro vider Gonsalo Unger Unavailable Unavailable Reason for Visit * Reason Comments Med Refill Encounter Details Date Type Department Care Team ([facility] st Contact Info) Description 11/10/2022 Refill [facility] [address] [place] [address] Gonsalo Unger FNP Anxious depression Social History [...] Visit [facility] MEDICINE [address] [place] [phone] Roberta Burroughs MD [address] [place] [phone] documented as of this encounter Visit Diagnoses Diagnosis Anxious depression documented in this encounter Additional Health Concerns Assessment Noted Time PHQ-9 Depression Total Score: 10 023 2:49 PM EDT documented as of this encounter Care Teams Plasterer Rough Relationship Specialty Start Date End Date Roberta Burroughs MD [address] [place] [phone] PCP - General Internal Medicine 08/05/22 Gonsalo Unger FNP [address] [place] [phone] Nurse Practitioner Family Medicine 12/28/22 documented as of this encounter
--- OUTSIDE RECORDS SUMMARY | 2024-06-05 15:03 | XMS_ITS | Clinical Summary ---
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 Sierra DO 04/29/2024 12:14 PM EDT RP Dictated By: Jennifer Sierra DO Signed By: <Electronically signed by Jennifer Sierra DO in OV> 04/29/24 1214 DD/ 1525 TD/TT: 04/20/24 1538 Corrective Therapy Aide: us Roberta Acuna MD IMG BI PROCEDURES Edited Result - Final * Influenza B (ID NOW Rapid Molecular) (03/31/2024 3:41 PM EST) Influenza B Negative Negative, Indeterminate [facility] Swab 03/31/2024 3:41 PM EST us Derek Trujillo MD POINT OF CARE TEST ENTER/EDIT OR DERABLES Final Result [facility] [address] [place] [phone] * Influenza A (ID NOW Rapid Molecular) (03/31/2024 3:41 PM EST) Influenza A Negative Negative, Indeterminate [facility] Swab 03/31/2024 3:41 PM EST us Derek Name MD POINT OF CARE TEST ENTER/EDIT OR DERABLES Final Result [facility] [address] [place] [phone] [phone] * XR Shoulder 2+ Views Right (03/31/2024 11:42 AM EST) Anatomical Region Laterality Modality Upper Extremities, Shoulder Right Radi ographic Imaging 03/31/2024 11:4 2 AM EST Narrative 03/31/2024 11:43 AM EST ? [facility] ?[address] ?[place] [address] ?XRay Report ? Signed ? Patient: Janes Knutson,Desire ?MR#: ?? [id number] ? : 1985 ?Acct:[id number] ? Age/Sex: 38 / F ?ADM Date: 03/30/24 ? Loc: HO.XRAY ? Attending Dr: Veronica Espinoza COMMUTATOR REPAIRER ? Ordering Physician: Veronica Espinoza ?? Date of Service: 03/30/24 ?? Procedure(s): XR shoulder RT min 2V ?? Accession Number(s): [id number] ? cc: Veronica Espinoza COMMUTATOR REPAIRER; Roberta Burroughs MD ? CLINICAL HISTORY: M25.511 [...] MD in OV> ?03/31/24 1143 ? DD/ 41 ? TD/TT: 03/31/241141 ? Corrective Therapy Aide: ? Procedure Note Donotuseinterpreter, Image - 03/31/[address] [address] XRay Report Signed Patient: Catalina Wood#: [id number] : 1985Acct:[id number] Age/Sex: 38 / FADM Date: 03/30/24 Loc: HO.XRAY Attending Dr: Veronica DALY Ordering Physician: Veronica Espinoza Date of Service: 03/30/24 Procedure(s): XR shoulder RT min 2V Accession Number(s): [id number] cc: Veronica Espinoza; Roberta Burroughs MD CLINICAL [...] 03/31/24 1143 DD/ 1142 TD/TT: 03/31/24 1142 Corrective Therapy Aide: [facility] External Provider IMG XR PROCEDURES Final Result * Hepatitis C Antibody with Reflex to HCV, RNA, Quantitative, Real-Time PCR (12/10/2023 11:55 AM EDT) Hepatitis C Antibody Nonreactive Nonreactive [facility] Comment:Antibodies to HCV no t detected; does not exclude early acuteHCV infection. Blood Venous blood specimen / Unknown 12/10/2023 11:55 AM EDT 12/10/2023 1:25 PM EDT us Roberta Acuna MD LAB BLOOD ORDERAB LES Final Result Performing Organization Address [facility]/ZIP Co de Phone Number [facility] [address] [place] [phone] * HIV-1/2 Antigen and Antibodies, Fourth Generation, with Reflexes (12/10/2023 11:55 AM EDT) HIV AB/AG Nonreactive Nonreactive [facility] Comment:HIV-1 p24 Ag and/or HIV-1/HIV-2 Ab not detected.A test result that is nonreactive does not exclude thepossibility of exposure to or infection with HIV-1 and/orHIV-2. Nonreactive results in this assay for individualswith prior exposure to HIV-1 and/or HIV-2 may be due toantigen and antibody levels that are below the limit ofdetection of this assay.The NextUser HIV Ag/Ab Combo assay result andsupplemental assay results should be interpreted inconjunction with the patient's clinical presentation,history and other laboratory results. If the results areinconsistent with clinical evidence, additional testing issuggested to confirm the result. Blood Venous blood specimen / Unknown 12/10/2023 11:55 AM EDT 12/10/2023 1:25 PM EDT us Roberta Acuna MD LAB BLOOD ORDERAB LES Final Result Performing Organization Address [facility]/ZIP Co de Phone Number [facility] [address] [place] [phone] * (ABNORMAL) Lipid Panel, Standard (12/10/2023 11:53 AM EDT) Triglycerides 49 <150 mg/dL [facility] Comment:Desirable Triglyceri de: less than 150 mg/dLBorderline High Triglyceride 150-199 mg/dLHigh Triglyceride: 200-499 mg/dLVery High Triglyceride: greater than or equal to 5OO mg/dL Cholesterol 163 <200 mg/dL [facility] Comment:Desirable Cholestero l: less than 200 mg/dLBorderline High Cholesterol: 200-239 mg/dLHigh Cholesterol: greater than 239 mg/dL LDL Cholesterol Calculated 100(H) <100 mg/dL [facility] Comment:Desirable LDL: less than 100 mg/dLNear Optimal/Above Optimal LDL: 110- 129 mg/dLBorderline High LDL: 130-159 mg/dLHigh LDL: 160-189 mg/dLVery High LDL: greater than or equal to 190 mg/dL HDL Cholesterol 54 >40 mg/dL [facility] Comment:Desirable HDL: great er than 40 mg/dL Note: This HDL assay may give artificially low results in patients with liver disease. Blood Venous blood specimen / Unknown 12/10/2023 11:53 AM EDT 12/10/2023 1:25 PM EDT us Roberta Acuna MD LAB BLOOD ORDERAB LES Final Result Performing Organization Address City/State/[facility] Co de Phone Number [facility] [address] [place] [phone] * Pap Smear (01/12/2023 9:41 AM EST) 01/12/2023 9:41 AM EST 01/13/2023 12:30 PM EST Narrative [facility] - 01/18/2023 1:41 PM EST ----- ------- Name: Catalina Wood ?Age/Sex: 37/F ? : 1985 Unit#: [id number] ?? Attend Dr: Sparkle Maldonado CNM ?Re01/12/23 ?Status: DEP REF ? Location: HO.LNP ?Disch: ? ----- ------- SPEC : [id number] ?RECD: 01/13/23 ? STATUS: ??SOUT ? REQ NUM: [id number] ? BALJINDER: 01/12/23 ? SUBM DR: Sparkle Maldonado CNM ? ENTERED: ??01/13/23 ?SP TYPE: Pap Smr ?OTHR DR: Vida Van COMMUTATOR REPAIRER ? ORDERED: ??Pap Smear ? Interpretation ?? Satisfactory for evaluation. ?? Mild inflammation. ?? Hyperkeratosis noted. ?? Negative for intraepithelial lesion or malignancy. ?HPV mRNA E6/E7: ?NOT DETECTED ? This assay detects E6/E7 viral messenger RNA (mRNA) from 14 high-risk HPV types (16, 18, ?? 31, 33, 35, 39, 45, 51, 52, 56, 58, 59, 66, 68) ?? HPV testing performed by [facility], [place], [place]. ??See reference laboratory ?? portion of the EMR for entire report. ?Clinical Information LMP: 12/13/22 Previous PAP test: 2018, WNL ? Material Received ?? ThinPrep-Cervical Copies To: ?? Sparkle Maldonado CNNai ?? [address] [facility] ?? [place] [address] ?? [phone] ?? Vida Van COMMUTATOR REPAIRER ?? [address] [facility] ?? [place] [address] ?? [phone] ----- ------- Signed (signature on file) ERICKA Roa (ASCP) 01/18/23 1341 ? ----- ------- ? END OF REPORT ? us Generic External Data Provider LAB CYTOLOGY WILLIAM ELLIOTT Final Result [facility] [address] [place] [phone] from Last 3 Months or Most Recently Relevant to Health Maintenance Insurance [facility] C3 HS FULL Care Teams Freight Claim Investigator Relationship Specialty Start Date End Date Roberta Burroughs MD [address] [place] [address] PCP - General Internal Medicine 08/05/22 Gonsalo Unger FNP [address] [place] [address] Nurse Practitioner Family Medicine 12/28/22
--- OUTSIDE RECORDS SUMMARY | 2024-06-05 15:03 | XMS_ITS | Encounter Summary ---
Author Organization [employer] Address [address] [facility] [address] [place] [address] Care Team Providers Care Emergency Management Director Name Role Phone Vida Van Primary Care Provider [phone] Roberta Burroughs MD Primary Care Pro vider Gonsalo Unger Unavailable Unavailable Encounter Details Date Type Department Care Team ([facility] Contact Info) Description 02/04/2022 Telephone [facility] [address] [place] [phone] Vida Van FNP [address] [facility] Dept [place] [address] Social History Tobacco Use Types Packs/Day Years [...] Upcoming Encounters Date Type Department Care Team ([facility] Contact Info) Description 06/27/2024 11:30 AM EDT Office Visit [facility] [address] [place] [phone] Roberta Burroughs MD [address] [place] [address] documented as of this encounter Visit Diagnoses Not on filedocumented in this encounter Additional Health Concerns Assessment Noted Time PHQ-9 Depression Total Score: 20 022 2:35 PM EST documented as of this encounter Care Teams Emergency Management Director Relationship Specialty Start Date End Date Vida Van FNP PCP - General Family Medicine 10/06/21 08/04/22 Roberta Burroughs MD [address] [place] [address] PCP - General Internal Medicine 08/05/22 Gonsalo Unger FNP [address] [place] [address] Nurse Practitioner Family Medicine 12/28/22 documented as of this encounter
--- OUTSIDE RECORDS SUMMARY | 2024-06-05 15:03 | XMS_ITS | Clinical Summary ---
Author Organization [facility] Address [address] [place] [address] Care Team Providers Care Company Doctor Name Role Phone Gonsalo Unger NP Primary Care Provider [phone] Social History Tobacco Use Types Packs/Day Years [...] Vaccine (2023-2 5 season) 2023 Influenza Vaccine (Season Ended) 2024 HIB Vaccines Aged Out No longer eligi [...] age to complete this topic Meningococcal B Vaccine Aged Out No l onger eligible based on patient's age to complete [...] age to complete this topic Care Teams Company Doctor Relationship Specialty Start Date End Date Gonsalo Unger NP [address] [place], [place] PCP - General Internal Medicine 06/24/16
--- OUTSIDE RECORDS SUMMARY | 2024-06-05 15:03 | XMS_ITS | Encounter Summary ---
Author Organization [employer] Address [address] [facility] [address] [place] [address] Care Team Providers Care Sifting Operator Name Role Phone Roberta Burroughs MD Primary Care Pro vider Gonsalo Unger Unavailable Unavailable Reason for Visit * Reason Comments Med Refill Encounter Details Date Type Department Care Team (Late st Contact Info) Description 11/10/2022 Refill [facility] [address] [place] [address] Vida Van FNP [address] [place] [address] Dept [place] [address] Seasonal allergic rhinitis due to pollen Social [...] Description 06/27/2024 11:30 AM EDT Office Visit [facility] [address] [place] [phone] Roberta Burroughs MD [address] [place] [phone] documented as of this encounter Visit Diagnoses Diagnosis Seasonal allergic rhinitis due to pollen documented in this encounter Additional Health Concerns Assessment Noted Time PHQ-9 Depression Total Score: 10 023 2:49 PM EDT documented as of this encounter Care Teams Sifting Operator Relationship Specialty Start Date End Date Roberta Burroughs MD [address] [place] [phone] PCP - General Internal Medicine 08/05/22 Gonsalo Unger FNP [address] [place] [phone] Nurse Practitioner Family Medicine 12/28/22 documented as of this encounter
== END 2024-06-05 12:43 | disposition home or self-care (01) ==
LOC: HO.10HDL 12:42
PROVIDERS: Visit Provider Student in an Organized Health Care Education/Training Program
DX: E89.0 Postprocedural hypothyroidism (principal)
CPT/HCPCS: 36415; 84439; 84443

== ENCOUNTER 2024-07-07 15:02 | Emergency (ER) | payer MEDICAID, SELFPAY ==
--- NOTE | ~2024-07-07 | XR_ITS ---
EXAMINATION: XR CHEST CLINICAL INFORMATION: Chest pain COMPARISON: 10/14/2023. TECHNIQUE: Frontal view of the chest was obtained. FINDINGS: The cardiac, hilar, and mediastinal contours are normal. The lungs are clear bilaterally. No pneumothorax or effusion. No focal osseous or soft tissue abnormality. XR/XR chest 1V IMPRESSION: Normal chest. Electronically signed by: Mejia Torres MD 07/07/2024 03:31 PM EDT
--- NOTE | 2024-07-07 15:04 | ECG_ITS ---
Test Reason : CP Blood Pressure : */* mmHG Vent. Rate : 76 BPM Atrial Rate : 76 BPM P-R Int : 182 ms QRS Dur : 80 ms QT Int : 388 ms P-R-T Axes : 74 42 49 degrees QTcB Int : 436 ms Normal sinus rhythm Cannot rule out Anterior infarct (cited on or before 07-Nov-2012) Abnormal ECG When compared with ECG of 13-Oct-2023 23:28, No significant change was found Referred By: Generic ED Physician Electronically Signed By: LAURA LIZ MD
[2024-07-07 15:09] VITALS: BP 132/88; PULSE 84; RESP 20; TEMP 36.2; O2SAT 99; BMI 36.7
--- NOTE | 2024-07-07 15:13 | ED_ITS ---
HPI - General Adult General Chief complaint: Chest Pain Stated complaint: CP Time Seen by Provider: 07/07/24 16:11 Source: patient Mode of arrival: ambulatory Limitations: no limitations History of Present Illness ED Provider: HPI narrative: 38-year-old female with history of hypertension, nonsmoker, nondrinker, no drug use, no recent surgeries, travels, not on control pills, no fevers or chills, no pleurisy hemoptysis presenting with chest pain midsternal, has had this in the past, quick jobs on and off, pain is over the mid sternum and over the bilateral anterior chest wall, reproducible to direct pressure. No exacerbation with activity has been fairly constant for the past 2 days but really has been there on and off for the past 5 days. Related Data Home Medications ?Medication ?Instructions ?Recorded ?Confirmed clonazepam 0.5 mg tablet 0.25 mg PO BID 11/06/20 06/05/24 epinephrine 0.3 mg/0.3 mL IM anaphylaxis 05/21/22 06/05/24 injection, auto-injector amitriptyline 25 mg tablet 50 mg PO BEDTIME 11/19/22 06/05/24 bupropion HCl 300 mg 24 hr tablet, 300 mg PO QAM 11/19/22 06/05/24 extended release cholecalciferol (vitamin D3) 25 25 mcg PO QAM 11/19/22 06/05/24 mcg (1,000 unit) tablet cyanocobalamin (vitamin B-12) 1,000 mcg PO DAILY 11/19/22 06/05/24 1,000 mcg tablet montelukast 10 mg tablet 10 mg PO DAILY 11/19/22 06/05/24 topiramate 50 mg tablet 50 mg PO BID 11/19/22 06/05/24 trazodone 100 mg tablet 100 mg PO BEDTIME PRN 11/19/22 06/05/24 fluticasone propionate 50 2 spray intranasal DAILY 01/05/23 06/05/24 mcg/actuation nasal spray,suspension olmesartan 20 mg tablet 20 mg PO DAILY 10/26/23 06/05/24 ferrous gluconate 324 mg (38 mg 324 mg PO 2XW 01/17/24 06/05/24 iron) tablet meclizine 25 mg tablet 25 mg PO TID PRN dizziness 01/17/24 06/05/24 sumatriptan succinate 50 mg tablet 50 mg PO PRN migraine 01/17/24 06/05/24 tirzepatide (weight loss) 2.5 mg subcut QWEEK 03/30/24 06/05/24 mg/0.5 mL subcutaneous pen injector (Zepbound) Previous Rx's ?Medication ?Instructions ?Recorded Anti-pronation orthotics #1 ea 03/29/20 docusate sodium 100 mg capsule 100 mg PO DAILY #30 caps 05/13/20 (Colace) menthol 0.44 %-zinc oxide 20.6 % 1 appl topical QID PRN skin 05/13/20 topical ointment (Calmoseptine) irritation #71 grams diclofenac sodium 1 % topical gel 4 g topical QID pain #100 grams 01/05/23 (Voltaren Arthritis Pain) albuterol sulfate 90 mcg/actuation 2 puff inhalation Q6H PRN 09/29/23 aerosol inhaler shortness of breath or wheezing 30 days #1 ea acyclovir 5 % topical ointment 1 appl topical 6XD 7 days #30 grams 01/27/24 clotrimazole-betamethasone 1 1 appl topical BID itching 7 days 01/27/24 %-0.05 % topical cream #45 grams valacyclovir 500 mg tablet 500 mg PO DAILY 90 days #90 tabs 01/27/24 (Valtrex) cyclobenzaprine 5 mg tablet 5 mg PO BID PRN muscle spasm 30 03/30/24 days #60 tabs ibuprofen 600 mg tablet 600 mg PO Q6H PRN fever or pain 04/23/24 #30 tabs levothyroxine 137 mcg tablet 137 mcg PO DAILY #30 tabs 05/24/24 fluticasone 250 mcg-salmeterol 50 1 inh inhalation BID 30 days #1 ea 07/07/24 mcg/dose blistr powdr for inhalation (Wixela Inhub) Allergies Allergy/AdvReac Type Severity Reaction Status Date / Time No Known Allergies Allergy Verified 07/07/24 15:11 Review of Systems 2 Constitutional: Constitutional: Reports as per [facility] Past Medical History Medical History Vulvar itching Abnormal urine odor Internal and external bleeding hemorrhoids Pruritus ani Migraine Anxiety B12 deficiency Vitamin D deficiency Obesity Postablative hypothyroidism Surgical History Hx of dilation and curettage Family History Family History Father Cancer Mother Hypertension Diabetes High cholesterol CVD (cardiovascular disease) Social History Social History Household Members Other:: daughter Housing: House Alcohol intake: never Patient Tobacco Use Status: Never used Tobacco Smoked in Last 30 Days: No Use of substances other than those prescribed or required for medical reasons: No Advance Directives: No Advance Directives Information Provided: No Do you have a plan to hurt others: No Plan Patient : No Current occupational status: unemployed Sexual orientation: Straight/Heterosexual Gender identity: Female Physical Exam ED Vital Signs: Vital Signs - 24 hr 07/07/24 15:09 07/07/24 16:19 Temperature 97.1 F 98.2 F Pulse Rate 84 76 Respiratory Rate 20 16 Blood Pressure 132/88 149/87 H Pulse Oximetry 99 100 Oxygen Delivery Method Room Air Room Air BMI result Body Mass Index 36.7 Const Other: * Gen: ?Overall well-appearing patient * HEENT: PERRLA, EOMI, MMM, * Neck: Supple, no LAD * CV: RRR, no obvious murmurs appreciated, reproducible chest wall pain bilaterally, radial pulses +2 bilaterally * Resp: ?No wheezing rales rhonchi no stridor moving air well * Abd: ?Bowel sounds are present, no tenderness no rebound no rigidity * MSK: FROM, strength 5/5 all extremities * Skin: Warm, dry, intact, * Neuro: ?Alert and oriented x3, moving upper and lower extremities symmetrically, no obvious facial asymmetry noted Course Course Course Narrative: RME: 38-year-old female presents to ED for chest pain for the past 2 days with shortness of breath. Patient denies any recent long travel, recent surgery, nausea or vomiting. EKG labs chest x-ray ordered Medications Administered Discontinued Medications Generic Name Dose Route Start Last Admin Trade Name Freq PRN Reason Stop Dose Admin Dexamethasone 10 mg 07/07/24 16:32 07/07/24 17:18 Dexamethasone 2 Mg Tablet PO 07/07/24 16:33 10 mg ONCE ONE Administration Ketorolac Tromethamine 15 mg 07/07/24 16:32 07/07/24 17:18 Ketorolac Tromethamine 15 Mg/Ml Vial IM 07/07/24 16:33 15 mg ONCE ONE Administration Medical Decision Making Medical Decision Making [facility] Narrative: Presenting with chest pain on and off for the past 5 days constant for the past 2 days, PERC negative, chest x-ray without pneumothorax, pneumonia or free air to suspect Boerhaave syndrome, EKG without underlying dysrhythmia, no physical exam findings or EKG findings to suspect myocarditis, pericarditis, no risk factors for endocarditis, most likely costochondritis based on exam complaints we will start her on anti-inflammatories, see my discharge instructions. Differential Diagnosis Differential Diagnoses: The differential diagnosis associated with the presentation includes ACS, pneumothorax, aortic dissection, PE, Boerhaave syndrome Admission/Observation Consideration of admission/observation: Escalation of care including admission/observation considered Patient is overall nontoxic, workup is unremarkable will be discharged Lab Data [facility] Lab Attestation statement: I reviewed the patient's lab results. 07/07/24 15:20 07/07/24 15:20 Labs: Lab Results 07/07/24 07/07/24 Range/Units 15:20 17:28 WBC 5.3 (4.8-10.8) X10*3/uL RBC 4.28 (4.20-5.50) X10*6/uL Hgb 12.5 (12.0-16.0) g/dl Hct 36.3 L (37.0-47.0) % MCV 84.8 (80.0-98.0) fL MCH 29.2 (27.0-33.0) pg MCHC 34.4 (31.0-35.0) g/dl RDW 12.8 (11.0-16.0) % Plt Count 210 (160-400) X10*3/uL MPV 10.9 (9.4-12.3) fL Immature Gran % (Auto) 0.2 (0.0-0.4) % Neut % (Auto) 75.1 H (45-73) % Lymph % (Auto) 19.4 L (20-40) % [place] % (Auto) 4.2 (2-11) % Eos % (Auto) 0.9 (0-4) % Baso % (Auto) 0.2 (0-2) % Lymph # (Auto) 1.0 L (1.2-4.9) X10*3/uL [place] # (Auto) 0.2 (0.1-1.2) X10*3/uL Eos # (Auto) 0.1 (0.0-0.4) X10*3/uL Baso # (Auto) 0.0 (0.0-0.2) X10*3/uL Abs Immat Gran (auto) 0.01 (0.00-0.03) X10*3/uL Absolute Neuts (auto) 4.0 (2.0-8.3) x10*3/uL Absolute Nucleated RBC 0.000 (0.0-0.012) X10*3/uL Nucleated RBC % (auto) 0.0 (0.0-0.2) /100WBC PT 12.9 H (10.9-12.4) SEC INR 1.1 (0.9-1.1) APTT 34.7 (26.0-36.8) SEC Sodium 140 (135-145) mmol/L Potassium 3.7 (3.3-5.1) mmol/L Chloride 108 (96-108) mmol/L Carbon Dioxide 27 (22-29) mmol/L Anion Gap 9 L (12-20) BUN 21 H (9-16) mg/dL Creatinine 0.78 (0.5-1.4) mg/dL Estim Creat Clear Calc 104.5 Estimated GFR > 60 Random Glucose 89 (60-115) mg/dL Calcium 9.7 (8.4-10.2) mg/dL Total Bilirubin 0.6 (0.0-1.0) mg/dL AST 22 (5-31) U/L ALT 15 (0-31) U/L Alkaline Phosphatase 56 (39-117) U/L Troponin I High Sens < 2.7 < 2.7 (<3.5-17.0) ng/L B-Natriuretic Peptide 22 (<100) pg/mL Total Protein 7.5 (6.5-8.0) g/dL Albumin 4.5 (3.5-5.0) g/dL Independent Interpretation I performed an independent interpretation of an: EKG (76 otherwise normal ECG without dysrhythmia, AV dana blocks or ST-T changes to suspect underlying ACS, my independent interpretation) Radiology Impression Discussion of test interpretation with radiology: I have reviewed the radiologist's reading. Radiologist Impression: Normal chest x-ray Chronic Conditions Patient?s care impacted by: Hypertension Discharge Plan Discharge Clinical Impression: Chest pain, precordial Patient Disposition: Home, Self-Care Instructions: Chest Pain (ED) Additional Instructions: Diagnosis and Initial Evaluation: You have been evaluated in the Emergency Department (ED) for chest pain. Based on your clinical assessment, electrocardiogram (ECG), and high-sensitivity cardiac troponin (hs-cTn) levels, you have been classified as low-risk for acute coronary syndrome (ACS) and myocardial infarction (TN). This means that your likelihood of having a heart attack or other serious heart condition in the next 30 days is very low. We have discussed other considerations for chest pain such as blood clots, collapsed lung, infection of the lung, inflammation of the heart, I felt that based on your workup, physical examination that this is related to costochondritis or inflammation of the ribcage, you can take ibuprofen 400 mg every 6 hours around the clock for the next 2 days, to follow up with the PCP and see my general discharge instructions for chest pain as below. Follow-Up Care: ? Primary Care Provider (PCP) or Brand Communications Manager: It is important to follow up with your primary care provider or supervisor photocomposition within the next 14 to 30 days. This follow-up is crucial to ensure that any underlying conditions are managed appropriately and to discuss any further testing that may be needed. ? Notification: If you have an established PCP or supervisor photocomposition, they have been notified of your ED visit to facilitate continuity of care. Self-Care and Monitoring: ? Medications: Continue taking any prescribed medications as directed. If you have been given new medications, ensure you understand how and when to take them. ? Activity: Resume normal activities as tolerated. Avoid strenuous activities until you have discussed them with your healthcare provider. ? Diet: Maintain a heart-healthy diet, low in saturated fats, cholesterol, and sodium. Red Flags: Seek immediate medical attention if you experience any of the following: ? New or worsening chest pain ? Shortness of breath ? Dizziness or fainting ? Pain radiating to your arm, neck, or jaw ? Sweating, nausea, or vomiting Additional Testing: In some cases, outpatient testing such as a stress test or imaging may be recommended to further evaluate your heart health. Your follow-up provider will discuss this with you if necessary. Mental Health: Anxiety and stress can contribute to chest pain. Consider discussing any concerns with your healthcare provider, who may recommend screening for anxiety or depression and appropriate management strategies. Contact Information: If you have any questions or concerns before your follow-up appointment, please contact your healthcare provider or the ED where you were evaluated. Summary: You have been discharged from the ED with a low risk of serious heart conditions. Follow the instructions above, attend your follow-up appointments, and seek immediate care if you experience any red flags. Prescriptions: No Action levothyroxine 137 mcg tablet 137 mcg PO DAILY Qty: 30 6RF fluticasone propion-salmeterol [Wixela Inhub] 250-50 mcg/dose blister with device 1 inh inhalation BID 30 Days Qty: 1 6RF ibuprofen 600 mg tablet 600 mg PO Q6H PRN (Reason: fever or pain) Qty: 30 0RF Calmoseptine 0.44-20.6 % ointment 1 appl topical QID PRN (Reason: skin irritation) Qty: 71 4RF docusate sodium [Colace] 100 mg capsule 100 mg PO DAILY Qty: 30 4RF clonazepam 0.5 mg tablet 0.25 mg PO BID (DME) Anti-pronation orthotics See Rx Instructions .ROUTE .MEDSUPPLY Qty: 1 0RF Rx Instructions: Anti-pronation orthotics epinephrine 0.3 mg/0.3 mL auto-injector IM fluticasone propionate 50 mcg/actuation spray,suspension 2 spray intranasal DAILY diclofenac sodium [Voltaren Arthritis Pain] 1 % gel 4 g topical QID Qty: 100 0RF valacyclovir [Valtrex] 500 mg tablet 500 mg PO DAILY 90 Days Qty: 90 1RF acyclovir 5 % ointment 1 appl topical 6XD 7 Days Qty: 30 2RF clotrimazole-betamethasone 1-0.05 % cream 1 appl topical BID 7 Days Qty: 45 1RF Rx Instructions: apply externally a thin coat to the area sumatriptan succinate 50 mg tablet 50 mg PO PRN (Reason: migraine) ferrous gluconate 324 mg (38 mg iron) tablet 324 mg PO 2XW meclizine 25 mg tablet 25 mg PO TID PRN (Reason: dizziness) albuterol sulfate 90 mcg/actuation HFA aerosol inhaler 2 puff inhalation Q6H PRN (Reason: shortness of breath or wheezing) 30 Days Qty: 1 6RF olmesartan 20 mg tablet 20 mg PO DAILY Zepbound 2.5 mg/0.5 mL pen injector subcut QWEEK cyclobenzaprine 5 mg tablet 5 mg PO BID PRN (Reason: muscle spasm) 30 Days Qty: 60 1RF cholecalciferol (vitamin D3) 25 mcg (1,000 unit) tablet 25 mcg PO QAM cyanocobalamin (vitamin B-12) 1,000 mcg tablet 1,000 mcg PO DAILY topiramate 50 mg tablet 50 mg PO BID trazodone 100 mg tablet 100 mg PO BEDTIME PRN amitriptyline 25 mg tablet 50 mg PO BEDTIME montelukast 10 mg tablet 10 mg PO DAILY bupropion HCl 300 mg tablet extended release 24 hr 300 mg PO QAM Print Language: Luxembourgish
[2024-07-07 15:24] LABS: MANUAL DIFF FLAG NO
[2024-07-07 15:27] LABS: Basophils Percent Auto 0.2 % (0-2); Eosinophils Absolute Auto 0.1 X10*3/uL (0.0-0.4); Eosinophils Percent Auto 0.9 % (0-4); Hematocrit 36.3 % (37.0-47.0); Hemoglobin 12.5 g/dl (12.0-16.0); Imm Gran Abs Auto 0.01 X10*3/uL (0.00-0.03); Imm Gran Pct Auto 0.2 % (0.0-0.4); Lymphocytes Percent Auto 19.4 % (20-40); Mean Corpuscular HGB Conc 34.4 g/dl (31.0-35.0); Mean Corpuscular Hemoglobin 29.2 pg (27.0-33.0); Mean Corpuscular Volume 84.8 fL (80.0-98.0); Mean Platelet Volume 10.9 fL (9.4-12.3); Monocytes Absolute Auto 0.2 X10*3/uL (0.1-1.2); Monocytes Percent Auto 4.2 % (2-11); Neutrophils Percent Auto 75.1 % (45-73); Platelet Count 210 X10*3/uL (160-400); Red Blood Count 4.28 X10*6/uL (4.20-5.50); Red Cell Distribution Width 12.8 % (11.0-16.0); White Blood Count 5.3 X10*3/uL (4.8-10.8)
[2024-07-07 15:38] LABS: INTERNATIONAL NORM RATIO 1.1 (0.9-1.1); Prothrombin Time 12.9 SEC (10.9-12.4)
[2024-07-07 15:41] LABS: Partial Thromboplastin Time 34.7 SEC (26.0-36.8)
[2024-07-07 16:09] LABS: Alanine Aminotransferase 15 U/L (0-31); Albumin Level 4.5 g/dL (3.5-5.0); Anion Gap 9 (12-20); Aspartate Amino Transferase 22 U/L (5-31); Bilirubin Total 0.6 mg/dL (0.0-1.0); Blood Urea Nitrogen 21 mg/dL (9-16); Calcium 9.7 mg/dL (8.4-10.2); Carbon Dioxide 27 mmol/L (22-29); Chloride 108 mmol/L (96-108); Creatinine Clr Calc Pharmacy 104.5; Estimated Glomerular Filt Rate > 60; Glucose Random 89 mg/dL (60-115); Potassium 3.7 mmol/L (3.3-5.1); Sodium 140 mmol/L (135-145); Total Protein 7.5 g/dL (6.5-8.0); Troponin-I High Sensitivity < 2.7 ng/L (<3.5-17.0)
[2024-07-07 16:19] VITALS: BP 149/87; PULSE 67; PULSE 76; RESP 16; TEMP 36.8; O2SAT 100
--- NOTE | 2024-07-07 16:27 | PC.NURSE ---
Patient A&O x 4. Patient presents to ED c/o chest pain w/ SOB PMH asthma, patient used emergency inhaler with no effect. Patient states I started 2 days ago EKG = NSR, CXR unremarkable. Patient slightly hypertensive 149/87, all other VSS. Patient on cardiac rn, Provider in to see patient. plan of care on going
[2024-07-07 16:36] LABS: B Type Natriuretic Peptide 22 pg/mL (<100)
[2024-07-07 17:09] LABS: Alkaline Phosphatase 56 U/L (39-117)
[2024-07-07] MEDS: dexAMETHasone 2 MG TABLET 10 MG PO (17:18)
[2024-07-07] MEDS: Ketorolac Tromethamine 15 MG/ML VIAL IM (17:18)
[2024-07-07 17:59] LABS: Troponin-I High Sensitivity < 2.7 ng/L (<3.5-17.0)
[2024-07-07 18:07] VITALS: BP 128/87; PULSE 65; RESP 14; TEMP 36.6; O2SAT 100
== END 2024-07-07 18:33 | disposition home or self-care (01) ==
PROVIDERS: Physician Assistant; Emergency Provider Emergency Medicine
DX: R07.2 Precordial pain (principal); R07.9 Chest pain, unspecified; I10 Essential (primary) hypertension
CPT/HCPCS: 36415; 71045; 80053; 83880; 84484; 85025; 85610; 85730; 93005; 96372; 99284; 99285; J1885; J8540

== ENCOUNTER → 2024-07-07 15:04 | Outpatient (BNV) | payer MEDICAID, SELFPAY | PROVIDERS: Emergency Provider Emergency Medicine; Visit Provider Internal Medicine Cardiovascular Disease | DX: R94.31 Abnormal electrocardiogram [ECG] [EKG] (principal); R07.9 Chest pain, unspecified | CPT/HCPCS: 93010 ==

== ENCOUNTER → 2024-07-07 15:12 | Outpatient (BNV) | payer MEDICAID, SELFPAY | PROVIDERS: Visit Provider Radiology Diagnostic Radiology | DX: R07.9 Chest pain, unspecified (principal) | CPT/HCPCS: 71045 ==

== ENCOUNTER 2024-09-12 13:11 | Outpatient (AMB) | payer MEDICAID, SELFPAY ==
--- NOTE | 2024-09-12 13:14 | MHC.OFFVIS ---
Vital Signs 09/12/24 13:15 Height 5 ft 3 in Intake Visit Reasons: 1 Year follow up Allergies No Known Allergies Allergy (Verified 09/12/24 13:15) Medication List - Last Reconciled 09/12/24 by Geetha Smith CNP acyclovir 5% 1 appl topical 6XD 7 days albuterol sulfate 90 mcg/actuation 2 puffs inhalation Q6H PRN 30 days amitriptyline 50 mg PO BEDTIME [Anti-pronation orthotics Anti-pronation orthotics] bupropion HCl XL 300 mg PO QAM cholecalciferol (vitamin D3) 25 mcg PO QAM clonazepam 0.25 mg PO BID clotrimazole-betamethasone 1-0.05 % 1 appl topical BID 7 days cyanocobalamin (vitamin B-12) 1,000 mcg PO DAILY cyclobenzaprine 5 mg PO BID PRN 30 days diclofenac sodium 1% (Voltaren Arthritis Pain) 4 grams topical QID docusate sodium (Colace) 100 mg PO DAILY epinephrine IM ferrous gluconate 324 mg PO 2XW fluticasone propion-salmeterol 250-50 mcg/dose (Wixela Inhub) 1 inh inhalation BID 30 days fluticasone propionate 50 mcg/actuation 2 sprays intranasal DAILY ibuprofen 600 mg PO Q6H PRN levothyroxine 137 mcg PO DAILY meclizine 25 mg PO TID PRN menthol-zinc oxide 0.44-20.6 % (Calmoseptine) 1 appl topical QID PRN montelukast 10 mg PO DAILY olmesartan 20 mg PO DAILY ondansetron 4 mg PO Q8H sumatriptan succinate 50 mg PO PRN tirzepatide (weight loss) (Zepbound) mg subcut QWEEK topiramate 50 mg PO BID trazodone 100 mg PO BEDTIME PRN valacyclovir (Valtrex) 500 mg PO DAILY 90 days HPI Comments Details: She was doing okay. Getting headache about 2x/week with photophobia, sonophobia, some dizziness, and occasional nausea. Sumatriptan as needed usually helps. She had bad headache last week and had to lay down in dark room. She was under some more stress at the time which may have triggered it. Sleep was okay with medication. Caring for daughter that has developmental delay. She has a history of chronic headaches that started in childhood and usually occur 3 days in a week. No nausea and vomiting. They can be triggered by stress, bright sun, or heat. There is no family history of migraines. There is no visual aura. [facility] Medical History (Updated 09/12/24 @ 13:17 by Geetha Smith CNP) Insomnia Carpal tunnel syndrome, bilateral upper limbs Depression Muscle tension headache Vulvar itching Abnormal urine odor Internal and external bleeding hemorrhoids Pruritus ani Migraine Anxiety B12 deficiency Vitamin D deficiency Obesity Postablative hypothyroidism Surgical History Hx of dilation and curettage Family History Father Cancer Mother Hypertension Diabetes High cholesterol CVD (cardiovascular disease) Social History Household Members Other:: daughter Housing: House Alcohol intake: never Patient Tobacco Use Status: Never used Tobacco Current occupational status: unemployed Sexual orientation: Straight/Heterosexual Gender identity: Female Review of Systems Const Denies chills, Denies daytime sleepiness, Reports difficulty sleeping, Denies fatigue, Denies fever(s), Denies frequent falls, Reports headache(s), Denies increased appetite, Denies poor appetite, Denies snoring, Denies weakness, Denies weight gain and Denies weight loss Eyes Denies loss of vision ENT Denies vertigo, Denies dizziness, Reports headache(s) and Denies neck pain Card Denies chest pain at rest, Denies chest pain with activity, Denies syncope, Denies leg edema, Denies palpitations, Denies dyspnea and Denies dyspnea on exertion Resp Denies cough, Denies dyspnea, Denies dyspnea on exertion and Denies snoring GI Denies abdominal pain, Denies constipation, Denies heartburn, Denies diarrhea and Denies nausea Denies urinary frequency, Denies urinary incontinence and Denies urinary urgency Musc Denies abnormal gait, Denies back pain, Denies myalgias, Denies arthralgias, Denies neck pain, Denies numbness and Denies tingling Neuro Denies abnormal gait, Denies vertigo, Denies dizziness, Denies syncope, Denies frequent falls, Reports headache(s), Denies lack of coordination, Denies loss of vision, Denies memory loss, Denies numbness, Denies Other visual disturbances, Denies restless legs, Denies seizure-like activity, Denies tingling, Denies paresthesias, Denies tremor(s) and Denies weakness Psych Denies anxiety, Denies depression, Denies auditory hallucinations, Denies memory loss and Denies visual hallucinations Endo Denies fatigue and Denies palpitations Physical Exam Const Other: General Appearance:? normal, in no acute distress. Heart:? S1, S2 normal, no murmurs. Lungs:? clear anteriorly and posteriorly. Musculoskeletal:? normal. Extremities:? no edema. Psych:? alert, oriented, cognitive function intact, cooperative with exam. Neuro Other: Abnormal Neurological Findings:?none.? Mental Status: alert and oriented X 3. Normal attention, orientation, memory, and affect. Cranial Nerves: Pupils are equal, round, and reactive to light. External ocular muscles are intact. Visual marshall are full, no ptosis. Face is symmetrical, no facial weakness or droop. Facial sensations are normal. Tongue protrudes in midline. Palate elevates symmetrically. Shoulder shrugging is normal Motor Examination: Normal muscle tone, bulk and strength. No atrophy or fasciculations. No drift of the extended upper extremities. DTR 2+. Plantars are flexor. Straight Leg Raisin degrees. Sensory Exam: Normal light touch, temperature, pinprick, vibration, and joint-position sensations. Rhomberg sign is absent. Coordination: No ataxia. No titubation. [id number], gnyt-[id number] test, and rapid alternating movements were normal. Gait Exam: Within normal limits. Cerebellar Signs: Mykrgt-[id number] and lylu-pb-[id number] is normal. No dysdiadochokinesia. Extrapyramidal System: No tremor, rigidity with normal facial expressions. No bradykinesia. No bradyphrenia. Normal arm swing and posture. No propulsion or retropulsion. Speech: Normal. No dysphasia or dysarthria. Assessment & Plan Assessment & Plan (1) Migraine without aura: Code(s): G43.009 - Migraine without aura, not intractable, without status migrainosus Category: Medical Qualifiers: Status migrainosus presence: without status migrainosus Intractability: not intractable Qualified Code(s): G43.009 - Migraine without aura, not intractable, without status migrainosus Plan: Continue topiramate 50mg 1 tablet twice a day. Continue sumatriptan 50mg 1 tablet as needed for migraine. May take sumatriptan with 1 Aleve or 1 Excedrin and cup of coffee or tea. Continue ondansetron 4mg 1 tablet as needed for nausea. (2) Muscle tension headache: Code(s): G44.209 - Tension-type headache, unspecified, not intractable Category: Medical Plan: Continue amitriptyline 25mg 2 tablets at bedtime. (3) Insomnia: Code(s): G47.00 - Insomnia, unspecified Category: Medical Qualifiers: Insomnia type: unspecified Qualified Code(s): G47.00 - Insomnia, unspecified Plan: Continue trazodone 100mg 1 tablet at bedtime as needed for sleep. Medications: New ondansetron 4 mg PO DAILY 10 tabs 5RF 30 days sumatriptan succinate take 1 tab at onset of headache; if no relief may repeat 1 tab after at least 2 hrs; PO 10 tabs 5RF 30 days Changed From topiramate 50 mg PO BID To topiramate 50 mg PO BID 180 tabs 1RF 90 days From amitriptyline 50 mg PO BEDTIME To amitriptyline 50 mg (2 x 25 mg) PO BEDTIME 180 tabs 1RF 90 days From trazodone 100 mg PO BEDTIME PRN To trazodone 100 mg PO BEDTIME PRN 30 tabs 5RF sleep 30 days Discontinued sumatriptan succinate Discontinued Reason: Order 50 mg PO PRN migraine Coding Level of Care Code Est Pt Level 4 (08357) Diagnoses Migraine without aura and without status migrainosus, not intractable G43.009 Status migrainosus presence: without status migrainosus Intractability: not intractable Muscle tension headache G44.209 Insomnia, unspecified type G47.00 Insomnia type: unspecified
--- OUTSIDE RECORDS SUMMARY | 2024-09-12 13:49 | XMS_ITS | Clinical Summary ---
Author Organization [employer] Address [address] [place] [address] Care Team Providers Care Tool Room Supervisor Name Role Phone Roberta Burroughs MD Primary Care Pro vider Gonsalo Unger Unavailable Unavailable Allergies Active Allergy Reactions Criticality Noted Date Comments Gramineae Pollens 01/13/2022 Environmental allergies Medications Blood Pressure Monitoring (Blood Pressure Kit) deviceIndications [...] DAILY 5 mL 1 03/12/19 23 Active topiramate 50 MG tabletIndications :Medication [...] RINSE MOUTH AFTER USING. 04/01/19 24 Active clonazePAM (KlonoPIN) 0.5 MG tabletIndications :Anxious depression Take 1 tablet (0.5 mg) by mouth every 12 (twelve) hours. 60 tablet 1 10/06/19 24 Active olmesartan (BENIcar) 20 MG tabletIndications [...] and replace cap. 16 g 01/04/20 24 2024 Active sodium chloride ([place]) 0.65 % nasal spray Administer 1 spray into each nostril if needed for congestion. 15 mL 2 01/04/20 24 2024 Active montelukast (Singulair) 10 MG tabletIndications :Mild persistent asthma without complication TAKE 1 TABLET BY MOUTH EVERY DAY IN THE MORNING 90 tablet 1 01/19/20 24 Active cetirizine (ZyrTEC) 10 MG tabletIndications :Seasonal allergic rhinitis due to pollen TAKE 1 TABLET BY MOUTH ONCE DAILY NEEDED FOR ALLERGIES 90 tablet 1 01/19/20 24 Active albuterol (Ventolin HFA) 108 (90 Base) MCG/ACT inhalerIndication s:Mild persistent asthma without complication Inhale 2 puffs every 4 (four) hours if needed for wheezing or shortness of breath. 18 g 3 02/10/19 25 Active cyanocobalamin (Vitamin B-12) 1000 MCG tabletIndications :Cobalamin deficiency TAKE 1 TABLET BY MOUTH ONCE DAILY 90 tablet 1 04/21/19 25 Active Acetaminophen Extra Strength 500 MG tabletIndications :Concussion without loss of consciousness, subsequent encounter TAKE 2 TABLETS BY MOUTH EVERY 6 HOURS NEEDED FOR PAIN OR FEVER 50 tablet 06/29/19 25 Active ferrous gluconate (Fergon) 324 (38 Fe) MG tablet Take 1 tablet (324 mg) by mouth 2 (two) times a week. 8 tablet 4 06/30/19 25 2025 Active psyllium (Metamucil Smooth Texture) 58.6 % powder Take 5.12 g (3 g of fiber) by mouth 2 times daily. 283 g 2 06/28/19 25 2025 Active FT Stool Softener 50-8.6 MG tablet TAKE 1 TABLET BY MOUTH ONCE DAILY 90 tablet 1 06/29/19 25 Active EPINEPHrine (Epipen) 0.3 MG/0.3ML injection syringeIndication s:Allergic rhinitis, unspecified INJECT INTRAMUSCULARLY DIRECTED ON PACKAGE AND GO TO EMERGENCY ROOM 2 each 06/29/19 25 Active Fluocinolone Acetonide Scalp 0.01 % oilIndications:Se borrheic dermatitis of scalp APPLY A THIN LAYER TO DAMP SCALP, MASSAGE WELL AND COVER, LEAVE ON FOR 4 HOURS OR OVERNIGHT, THEN WASH OFF DIRECTED 118.28 mL 1 06/29/19 25 Active cholecalciferol (Vitamin D-3) 125 MCG (5000 UT) capsule TAKE 1 CAPSULE BY MOUTH ONCE DAILY 90 capsule 1 06/29/19 25 Active traZODone (Desyrel) 100 MG tablet TAKE 1 TABLET BY MOUTH EVERY DAY AT BEDTIME 90 tablet 06/29/19 25 Active meclizine (Antivert) 25 MG tabletIndications :Vertigo TAKE 1 TABLET BY MOUTH THREE TIMES DAILY IN THE MORNING, AT NOON, AND AT BEDTIME NEEDED FOR DIZZINESS 30 tablet 2 06/29/19 25 Active lidocaine (Lidoderm) 5 % patchIndications: Concussion without loss of consciousness, subsequent encounter,Chronic pain of both shoulders Apply 1 patch topically Once per day. apply 1 patch by transdermal route 2 times every day (May wear up to 12hours.) 30 patch 2 06/28/19 25 Active Diclofenac Sodium (Voltaren) 1 % gelIndications:Ch ronic pain of both shoulders,Neck pain Apply 2 g topically if needed in the morning and at bedtime (muscle pain). 100 g 3 06/28/19 Active ibuprofen 800 MG tablet Take 1 tablet (800 mg) by mouth if needed each day for mild pain. 15 tablet 06/28/19 25 2024 Active buPROPion XL (Wellbutrin XL) 300 MG 24 hr tabletIndications :Anxious depression TAKE 1 TABLET BY MOUTH EVERY DAY IN THE MORNING 90 tablet 06/30/19 Active Tirzepatide-Weigh t Management (Zepbound) 10 MG/0.5ML solution auto-injectorIndi cations:Class 3 severe obesity due to excess calories with serious comorbidity and body mass index (BMI) of 40.0 to 44.9 in adult Inject 0.5 mL (10 mg) under the skin 1 (one) time per week. Increase dose monthly 2 mL 08/31/19 25 2024 Active Tirzepatide-Weigh t Management (Zepbound) 7.5 MG/0.5ML solution auto-injectorIndi cations:Class 3 severe obesity due to excess calories with serious comorbidity and body mass index (BMI) of 40.0 to 44.9 in adult Inject 0.5 mL (7.5 mg) as directed 1 (one) time per week. INJECT ONE PEN (= 7.5 MG) SUBCUTANEOUSLY ONCE A WEEK 2 mL 07/19/19 25 2024 Disconti nued(Oth er) Active Problems Problem Noted Date Diagnosed Date [...] intake with prescriber at her outpatient agency, [facility]. Meanwhile, will continue Wellbutrin XL 300 mg [...] Hypothyroidism 12/24/2014 Overview (08/05/2022): Care managed by [facility] Mathieu, Dr. Buck Last visit around 07/15/22 Recent Thyroid labs [...] a hx of recurrent sinusitis. Unfortunately her duplication specialist recently retired and she is awaiting to see a new one. Plan: Continue Zyrtec. Start Augmentin BID x 7 days F/u with new duplication specialist Environmental and seasonal allergies 04/02/2022 10/31/2022 Overview (08/05/2022): Care managed by [facility] Office Medical Assistant Receives allergy shots Assessment & Plan (08/05/2022 [...] been receiveing immunotherapy in the past unfortunatelly duplication specialist retired and she was unable to contine. Her nasal congestion is preventing her from sleeping. On exam she has significant turbinate erythema. She is already using otc Afrin and nasal steroids with no good results as well as daily antihistaminics Plan: Medrol dose pack while she sees her duplication specialist again to give her relief Exposure [...] Encounters Date Type Department Care Team Description 08/30/2024 Orders Only [facility] [address] [place] [address] Roberta Burroughs MD Class 3 severe obesity due to excess calories with serious comorbidity and body mass index (BMI) of 40.0 to 44.9 in adult (Primary Dx) 08/29/2024 Refill [facility] [address] [place] [address] Roberta Burroughs MD Class 3 severe obesity due to excess calories with serious comorbidity and body mass index (BMI) of 40.0 to 44.9 in adult 08/03/2024 Telephone [facility] [address], [place] [phone] Roberta Burroughs MD Prior Authorization 08/02/2024 Telephone [facility] [address] [place] [phone] Roberta Burroughs MD Prior Authorization 07/24/2024 Telephone [facility] [address] [place] [phone] Roberta Burroughs MD recall 07/17/2024 Refill [facility] [address] [place] [phone] Twila Ly MD Class 3 severe obesity due to excess calories with serious comorbidity and body mass index (BMI) of 40.0 to 44.9 in adult 07/05/2024 Refill [facility] [address] [place] [address] Tia Horn RN Anxious depression 07/05/2024 Refill [facility] [address] [place] [address] Roberta Burroughs MD Anxious depression 06/28/2024 Refill [facility] [address], [place] [phone] Roberta Burroughs MD Anxious depression 06/27/2024 11:30 AM EDT Office Visit [facility] [address] [place] [phone] Roberta Burroughs MD Palpitations (Primary Dx); Dyspnea, unspecified type; Concussion without loss of consciousness, subsequent encounter; Chronic pain of both shoulders; Chronic pain of both shoulders; Neck pain 06/27/2024 Refill [facility] [address] [place] [address] Roberta Burroughs MD Concussion without loss of consciousness, subsequent encounter; Allergic rhinitis, unspecified; Seborrheic dermatitis of scalp; Vertigo 06/27/2024 Travel 06/27/2024 Telephone [facility] [address] [place] [address] Roberta Burroughs MD Med Refill 06/20/2024 Patient Outreach [facility] [address] [place] [address] Roberta Burroughs MD Pre-visit Planning ([facility] unable to reach [facility]) from Last 3 Months Immunizations Immunization Administration Dates Next Due DT (pediatric) 07/06/1984,05/06/1984,03/04/1984 [...] Sign Reading Time Taken Comments Blood Pressure 126/81 06/27/2024 11:50 AM EDT Pulse 70 06/27/2024 11:50 AM EDT Temperature 36.3 C (97.3 F) 06/27/2024 11:50 AM EDT Respiratory Rate 20 06/27/2024 11:50 AM EDT Oxygen Saturation 99% 06/27/2024 11:50 AM EDT Inhaled Oxygen Concentration - - Weight 95.8 kg (211 lb 3.2 oz) 06/27/2024 11:50 AM EDT Height 160 cm (5' 3 ) 06/27/2024 11:50 AM EDT Body Mass Index 37.41 06/27/2024 11:50 AM EDT Plan of Treatment Upcoming Encounters Date Type Department Care Team (Late st Contact Info) Description 10/19/2024 2:30 PM EDT Office Visit [facility] [address] [place], [place] [phone] Roberta Burroughs MD [address], [place] [phone] Health Maintenance Due Date Last Done Comments Family Planning (PISQ) 10/24/1998 HPV Vaccines (1 - 3-dose series) 10/24/1998 Hepatitis A Vaccines (1 of 2 - Risk 2-dose series) 10/24/2002 Pneumococcal Vaccine: Pediatrics (0 to 5 Years) and At-Risk Patients (6 to 49) Years (1 of 2 - PCV) 10/24/2002 COVID-19 Vaccine ( season) 2023 07/12/2020, 06/14/2020 Depression Monitoring 04/07/2024 10/06/2023, 024 SDOH Screening 10/05/2024 10/06/2023 Influenza Vaccine (#1) 2024 , 12/02/2022, 02/05/2022, Additional history exists Alcohol/Substance Use Screening 06/27/2025 06/27/2024 Disability Screening 06/27/2025 06/27/2024 Tobacco Screening 06/27/2025 06/27/2024 Mammogram 04/20/2026 04/20/2024, 04/2023, 02/10/2023 Cervical Cancer [...] C Screening Completed 12/10/2023 , 11/13/2022, 01/14/2022 HIB Vaccines Aged Out No longer eligi [...] Procedure Name Priority Date/Time Associated Diagnosis Comments BI MAMMOGRAM SCREENING TOMOSYNTHESIS BILATERAL Routine 04/20/2024 3:25 PM EDT HEPATITIS C AB W/REFL TO HCV RNA, QN, PCR Routine 12/10/2023 11:55 AM EDT Annual physical exam HIV 1/2 ANTIGEN/ANTIBODY, FOURTH GENERATION W/RFL Routine 12/10/2023 11:55 AM EDT Annual physical exam LIPID PANEL, STANDARD Routine 12/10/2023 11:53 AM EDT Annual physical exam PAP SMEAR Routine 01/12/2023 9:41 AM EST from Last 3 Months or Most Recently Relevant to Health Maintenance Results * BI Mammogram Screening Tomosynthesis Bilateral (04/20/2024 3:25 PM EDT) Anatomical Region Laterality Modality Breast Bilateral Mammography 04/20/2024 3:25 PM EDT Narrative 04/29/2024 12:17 PM EDT [place] [facility] [address] [place] [address] Mammography Report Signed Patient: Catalina Wood MR#: [id number] : 1985 Acct:[id number] Age/Sex: 38 / F ADM Date: 04/20/24 Loc: HO.MAMMO Attending Dr: Roberta Acuna MD Ordering Physician: Roberta Burroughs MD Re sults: 1Negative Date of Service: 04/20/24 Follow Up: 1 Year From Orig inal Mammogram Procedure(s): MM tomosynthesis screening BI Accession Number(s): [id number] cc: Roberta Burroughs MD EXAMINATION: MM SCREENING [...] Jennifer Sierra DO 04/29/2024 12:14 PM EDT Dictated By: Jennifer Sierra DO Signed By: <Electronically signed by Jennifer Sierra DO in OV> 04/29/24 1214 DD/ 1525 TD/TT: 04/20/24 1538 Skid Machine Operator: Procedure Note Donotuseinterpreter, Image - 04/29/2024 [place] [facility] [address] [place] [address] Mammography Report Signed Patient: Catalina WoodMR#: [id number] : 1985Acct:[id number] Age/Sex: 38 / FADM Date: 04/20/24 Loc: HO.MAMMO Attending Dr: Roberta Acuna MD Ordering Physician: Roberta Burroughs sults: 1Negative Date of Service: 04/20/24Follow Up: 1 Year From Orig inal Mammogram Procedure(s): MM tomosynthesis screening BI Accession Number(s): [id number] cc: Roberta Burroughs MD EXAMINATION: MM SCREENING [...] Jennifer Sierra DO 04/29/2024 12:14 PM EDT Dictated By: Jennifer Sierra DO Signed By: <Electronically signed by Jennifer Sierra DO in OV> 04/29/24 1214 DD/ 1525 TD/TT: 04/20/24 1538 Skid Machine Operator: us Roberta Acuna MD IMG BI PROCEDURES Edited Result - Final * Hepatitis C Antibody with Reflex to HCV, RNA, Quantitative, Real-Time PCR (12/10/2023 11:55 AM EDT) Hepatitis C Antibody Nonreactive Nonreactive [facility] Comment:Antibodies to HCV no t detected; does not exclude early acuteHCV infection. Blood Venous blood specimen / Unknown 12/10/2023 11:55 AM EDT 12/10/2023 1:25 PM EDT us Roberta Acuna MD LAB BLOOD ORDERAB LES Final Result Performing Organization Address [facility]/ZIP Co de Phone Number [facility] [address] [place] [phone] * HIV-1/2 Antigen and Antibodies, Fourth Generation, with Reflexes (12/10/2023 11:55 AM EDT) Pathologist [facility] HIV AB/AG Nonreactive Nonreactive [facility] Comment:HIV-1 p24 Ag and/or HIV-1/HIV-2 Ab not detected.A test result that is nonreactive does not exclude thepossibility of exposure to or infection with HIV-1 and/orHIV-2. Nonreactive results in this assay for individualswith prior exposure to HIV-1 and/or HIV-2 may be due toantigen and antibody levels that are below the limit ofdetection of this assay.The [employer] HIV Ag/Ab Combo assay result andsupplemental assay results should be interpreted inconjunction with the patient's clinical presentation,history and other laboratory results. If the results areinconsistent with clinical evidence, additional testing issuggested to confirm the result. Blood Venous blood specimen / Unknown 12/10/2023 11:55 AM EDT 12/10/2023 1:25 PM EDT us Roberta Acuna MD LAB BLOOD ORDERAB LES Final Result Performing Organization Address [facility]/ZIP Co de Phone Number [facility] [address] [place] [phone] * (ABNORMAL) Lipid Panel, Standard (12/10/2023 11:53 AM EDT) Triglycerides 49 <150 mg/dL [facility] Comment:Desirable Triglyceri de: less than 150 mg/dLBorderline High Triglyceride 150-199 mg/dLHigh Triglyceride: 200-499 mg/dLVery High Triglyceride: greater than or equal to 5OO mg/dL Cholesterol 163 <200 mg/dL [facility] Comment:Desirable Cholestero l: less than 200 mg/dLBorderline High Cholesterol: 200-239 mg/dLHigh Cholesterol: greater than 239 mg/dL LDL Cholesterol Calculated 100(H) <100 mg/dL [facility] Comment:Desirable LDL: less than 100 mg/dLNear Optimal/Above Optimal LDL: 110- 129 mg/dLBorderline High LDL: 130-159 mg/dLHigh LDL: 160-189 mg/dLVery High LDL: greater than or equal to 190 mg/dL HDL Cholesterol 54 >40 mg/dL [facility] Comment:Desirable HDL: great er than 40 mg/dL Note: This HDL assay may give artificially low results in patients with liver disease. Blood Venous blood specimen / Unknown 12/10/2023 11:53 AM EDT 12/10/2023 1:25 PM EDT us Roberta Acuna MD LAB BLOOD ORDERAB LES Final Result [facility] [address] [place] [phone] * Pap Smear (01/12/2023 9:41 AM EST) 01/12/2023 9:41 AM EST 01/13/2023 12:30 PM EST Narrative [facility] - 01/18/2023 1:41 PM EST ----- ------- Name: Catalina Wood Age/Sex: 37/F : 1985 Unit#: [id number] Attend Dr: Sparkle Maldonado CNM Re01/12/23 Status: DEP REF Location: [facility] Disch: ----- ------- SPEC : [id number] RECD: 01/13/23-1230 STATUS: DALLASMeg [place] NUM: [id number] BALJINDER: 01/12/23-940 [facility] DR: Sparkle Maldonado CNM ENTERED: 01/13/23-1503 SP TYPE: Pap Smr OTHR DR: Vida Van ORDERED: Pap Smear Interpretation Satisfactory for evaluation. Mild inflammation. Hyperkeratosis noted. Negative for intraepithelial lesion or malignancy. HPV mRNA E6/E7: NOT DETECTED This assay detects E6/E7 viral messenger RNA (mRNA) from 14 high-risk HPV types (16, 18, 31, 33, 35, 39, 45, 51, 52, 56, 58, 59, 66, 68) HPV testing performed by [facility], [place], [place]. See reference laboratory portion of the EMR for entire report. Clinical Information LMP: 12/13/22 Previous PAP test: 2018, WNL Material Received ThinPrep-Cervical Copies To: Sparkle Maldonado CNM [address] [place] [address] Dr. Hui [address] [place] [phone] Vida Van [address] [place] [address] ----- ------- Signed (signature on file) ERICKA Roa ([facility]) 01/18/23 1341 ----- ------- END OF REPORT Generic External Data Provider LAB CYTOLOGY WILLIAM ELLIOTT Final Result [facility] [address] [place] [phone] from Last 3 Months or Most Recently Relevant to Health Maintenance Insurance [facility] STANDARD Care Teams Tool Room Supervisor Relationship Specialty Start Date End Date Roberta Burroughs MD [address] [place] [address] PCP - General Internal Medicine 08/05/22 Gonsalo Unger FNP [address] [place] [phone] Nurse Practitioner Family Medicine 12/28/22
--- OUTSIDE RECORDS SUMMARY | 2024-09-12 13:49 | XMS_ITS | Clinical Summary ---
Author Organization [facility] Address [address] [place] [address] Care Team Providers Care Supervisor Curing Room Name Role Phone Gonsalo Unger NP Primary Care Provider [phone] Social History Tobacco Use Types Packs/Day Years [...] 10/24/2004 COVID-19 Vaccine (2023-2 5 season) 2023 Depression Screening 02/09/2024 Influenza Vaccine (#1) 2024 HIB Vaccines Aged Out No longer [...] 5 Years) and At-Risk Patients (6 to 49 Years) Aged Out No longer eligible b ased on patient's age to complete this topic RSV Immunization Patients Un livan 20 months Aged Out No longer eligible b ased on patient's age to complete this topic Varicella Vaccines Aged Out No longer eligible based on patient's age to complete this topic Care Teams Supervisor Curing Room Relationship Specialty Start Date End Date Gonsalo Unger NP [address] [place], [place] PCP - General Internal Medicine 06/24/16
== END 2024-09-12 13:38 | disposition home or self-care (01) ==
LOC: HO.HSM 13:12
PROVIDERS: PCP Student in an Organized Health Care Education/Training Program; Referring Provider Registered Nurse Community Health; Visit Provider Registered Nurse
DX: G43.009 Migraine without aura, not intractable, without status migrainosus (principal); G44.209 Tension-type headache, unspecified, not intractable; G47.00 Insomnia, unspecified
CPT/HCPCS: 99214

== ENCOUNTER → 2024-09-12 13:11 | Outpatient (BNVA) | payer MEDICAID, SELFPAY | PROVIDERS: PCP Student in an Organized Health Care Education/Training Program; Referring Provider Registered Nurse Community Health; Visit Provider Registered Nurse | DX: G43.009 Migraine without aura, not intractable, without status migrainosus (principal); G47.00 Insomnia, unspecified | CPT/HCPCS: 99212 ==

== ENCOUNTER 2024-10-10 12:24 | Outpatient (REF) | payer MEDICAID, SELFPAY ==
--- OUTSIDE RECORDS SUMMARY | 2024-10-10 13:35 | XMS_ITS | Encounter Summary ---
Author Organization [employer] Address [address] [facility] 7t [place] [address] Care Team Providers Care Rink Rat Name Role Phone Roberta Burroughs MD Primary Care Pro vider Gonsalo Unger Unavailable Unavailable Reason for Visit * Reason Comments Med Refill Encounter Details Date Type Department Care Team (Late st Contact Info) Description 08/11/[address] [facility] [address] [place] [address] Gonsalo Unger FNP Anxious depression Social History [...] Description 10/19/2024 2:30 PM EDT Office Visit [facility] [address] [place] [phone] Roberta Burroughs MD [address] [place] [phone] documented as of this encounter Visit Diagnoses Diagnosis Anxious depression documented in this encounter Additional Health Concerns Assessment Noted Time PHQ-9 Depression Total Score: 12 024 9:17 AM EST documented as of this encounter Care Teams Rink Rat Relationship Specialty Start Date End Date Roberta Burroughs MD [address] [place] [phone] PCP - General Internal Medicine 08/05/22 Gonsalo Unger FNP [address] [place] [phone] Nurse Practitioner Family Medicine 12/28/22 documented as of this encounter
--- OUTSIDE RECORDS SUMMARY | 2024-10-10 13:35 | XMS_ITS | Encounter Summary ---
Author Organization [employer] Address [address] [place] [address] 7 [place] [address] Care Team Providers Care 911 Telecommunicator Name Role Phone Roberta Burroughs MD Primary Care Pro vider Gonsalo Unger Unavailable Unavailable Reason for Visit * Reason Comments Med Refill Encounter Details Date Type Department Care Team (Late st Contact Info) Description 08/29/[address] [facility] [address] [place], [place] [phone] Roberta Burroughs MD [address] [place], [place] [phone] Class 3 severe obesity due to excess calories with serious comorbidity and body mass index (BMI) of 40.0 to 44.9 in adult Social History Tobacco Use Types Packs/Day Years [...] encounter Miscellaneous Notes * Telephone Encounter - Roberta Acuna MD - 08/30/2024 1:45 PM EDT 10 mg dose sent documented in this encounter Plan of Treatment Upcoming Encounters Date Type Department Care Team (Late st Contact Info) Description 10/19/2024 2:30 PM EDT Office Visit [facility] [address] [place] [phone] Roberta Burroughs MD [address] [place] [phone] documented as of this encounter Visit Diagnoses Diagnosis Class 3 severe obesity due to excess calories with serious comorbidity and body mass index (BMI) of 40.0 to 44.9 in adult documented in this encounter Additional Health Concerns Assessment Noted Time PHQ-9 Depression Total Score: 17 024 11:32 AM EDT documented as of this encounter Care Teams 911 Telecommunicator Relationship Specialty Start Date End Date Roberta Burroughs MD [address] [place] [address] [phone] PCP - General Internal Medicine 08/05/22 Gonsalo Unger FNP [address] [place] [address] [place] [phone] Nurse Practitioner Family Medicine 12/28/22 documented as of this encounter
--- OUTSIDE RECORDS SUMMARY | 2024-10-10 13:35 | XMS_ITS | Encounter Summary ---
Author Organization [employer] Address [address] [place] [address] 7 [place] [address] Care Team Providers Care Backwinder Name Role Phone Roberta Burroughs MD Primary Care Pro vider Gonsalo Unger Unavailable Unavailable Reason for Visit * Reason Onset Date Comments Prior Authorization 08/02/2024 Encounter Details Date Type Department Care Team ([facility] st Contact Info) Description 08/02/2024 Telephone [facility] [address] [place] [address] Roberta Burroughs MD [address] [place] [address] Prior Authorization Social History Tobacco Use Types Packs/Day Years [...] encounter Miscellaneous Notes * Telephone Encounter - Guille Khalil - 08/02/2024 2:05 PM EDT Pa required for Tirzepatide-Weight Management (Zepbound) 7.5 MG/0.5ML solution auto-injector documented in this encounter Plan of Treatment Upcoming Encounters Date Type Department Care Team (Late st Contact Info) Description 10/19/2024 2:30 PM EDT Office Visit [facility] [address] [place] [phone] Roberta Burroughs MD [address] [place] [phone] documented as of this encounter Visit Diagnoses Not on filedocumented in this encounter Additional Health Concerns Assessment Noted Time PHQ-9 Depression Total Score: 17 024 11:32 AM EDT documented as of this encounter Care Teams Backwinder Relationship Specialty Start Date End Date Roberta Burroughs MD [address] [place] [phone] PCP - General Internal Medicine 08/05/22 Gonsalo Unger FNP [address] [place] [phone] Nurse Practitioner Family Medicine 12/28/22 documented as of this encounter
--- OUTSIDE RECORDS SUMMARY | 2024-10-10 13:35 | XMS_ITS | Encounter Summary ---
Author Organization [employer] Address [address] [facility] 7t [place] [address] Care Team Providers Care Jersey Knitter Name Role Phone Roberta Burroughs MD Primary Care Pro vider Gonsalo Unger Unavailable Unavailable Reason for Visit * Reason Comments Med Refill Encounter Details Date Type Department Care Team (Late st Contact Info) Description 09/18/2024 Refill [facility] [address] [place], [place] [phone] Name, MD Derek [address] [place] [address] Cobalamin deficiency Social History Tobacco Use Types [...] Description 10/19/2024 2:30 PM EDT Office Visit [facility] [address] [place] [phone] Roberta Burroughs MD [address] [place] [phone] documented as of this encounter Visit Diagnoses Diagnosis Cobalamin deficiency Other B-complex deficiencies documented in this encounter Additional Health Concerns Assessment Noted Time PHQ-9 Depression Total Score: 17 024 11:32 AM EDT documented as of this encounter Care Teams Jersey Knitter Relationship Specialty Start Date End Date Roberta Burroughs MD [address] [place] [phone] PCP - General Internal Medicine 08/05/22 Gonsalo Unger FNP [address] [place] [phone] Nurse Practitioner Family Medicine 12/28/22 documented as of this encounter
--- OUTSIDE RECORDS SUMMARY | 2024-10-10 13:35 | XMS_ITS | Encounter Summary ---
Author Organization [employer] Address [address] [facility] 7t [place] [address] Care Team Providers Care Watch Electrician Name Role Phone Vida Van ELECTROMAGNET CRANE OPERATOR Primary Care Provider Roberta Ritchie MD Primary Care Pro vider Gonsalo Unger ELECTROMAGNET CRANE OPERATOR Unavailable Unavailable Encounter Details Date Type Department Care Team (Late st Contact Info) Description 01/13/2022 Abstract [facility] [address] [place], [place] [phone] Ashley Badillo RN [address] [place] [address] Social History Tobacco Use Types Packs/Day Years [...] PM EST documented as of this encounter Functional Status * Over the past 2 weeks, how often have you been bothered by any of the following problems? Question Answer Date of Assessment Author Little interest or pleasure in doing things Nearly every day 01/13/2022 2:35 PM EST Nadine Madrid Feeling down, depressed, or hopeless Nearly every day 01/13/2022 2:35 PM Nadine Harris Patient Health Questionnaire -2 Score 6 01/13/2022 2:35 PM Nadine Harris * Question Answer Date of Assessment Author Trouble falling or staying asleep, or sleeping too much Several days 01/13/2022 2:35 PM Damian Harris Feeling tired or having jose ramon le energy Nearly every day 01/13/2022 2:35 PM Nadine Harris Poor appetite or overeating Nearly every day 2:35 PM Nadine Harris Feeling bad about yourself - or that you are a failure or have let yourself or your family down Several days 01/13/2022 2:35 PM Nadine Harris Trouble concentrating on things, such as reading the newspaper or watching television Nearly every day 01/13/2022 2:35 PM Nadine Harris Moving or speaking so slowly that other people could have noticed? Or the opposite - being so fidgety or restless that you have been moving around a lot more than usual. Nearly every day 01/13/2022 2:35 PM Nadine Harris Thoughts that you would be better off or hurting yourself in some way Not at all 01/13/2022 2:35 PM Nadine Harris Patient Health Questionnaire -9 Score 20 01/13/2022 2:35 PM Nadine Harris * If you checked off any problems on this questionnaire so far, Question Answer Date of Assessment Author How difficult have these problems made it for you to do your work, take care of things at home, or get along with other people? Somewhat difficult 01/13/2022 2:35 PM Nadine Harris documented as of this encounter Plan of Treatment Upcoming Encounters Date Type Department Care Team (Late st Contact Info) Description 10/19/2024 2:30 PM EDT Office Visit [facility] [address] [place] [phone] Roberta Burroughs MD [address] [place] [address] documented as of this encounter Visit Diagnoses Not on filedocumented in this encounter Additional Health Concerns Assessment Noted Time PHQ-9 Depression Total Score: 20 022 2:35 PM EST documented as of this encounter Care Teams Watch Electrician Relationship Specialty Start Date End Date Vida Van FNP PCP - General Family Medicine 10/06/21 08/04/22 Roberta Burroughs MD [address] [place], [place] [phone] PCP - General Internal Medicine 08/05/22 Gonsalo Unger FNP [address] [place] [address] Nurse Practitioner Family Medicine 12/28/22 documented as of this encounter
--- OUTSIDE RECORDS SUMMARY | 2024-10-10 13:35 | XMS_ITS | Clinical Summary ---
Author Organization [employer] Address [address] [address] [place] [address] Care Team Providers Care Websphere Developer Name Role Phone Roberta Burroughs MD Primary Care Pro vider Gonsalo Unger Unavailable Unavailable Allergies Active Allergy Reactions Criticality Noted Date Comments Gramineae Pollens 01/13/2022 Environmental allergies Medications Blood Pressure Monitoring (Blood Pressure Kit) deviceIndication [...] before breakfast. 30 capsule 2 022 Active valACYclovir (Valtrex) 500 MG [...] TWICE DAILY 5 mL 1 023 Active topiramate 50 MG tabletIndication s:Medication overuse headache TAKE 1 TABLET BY MOUTH TWICE DAILY 60 tablet 1 023 Active amitriptyline (Elavil) 25 MG tabletIndication s:Medication overuse headache TAKE 2 TABLETS BY MOUTH EVERY DAY AT BEDTIME 60 tablet 1 023 Active Advair Diskus 250-50 MCG/ACT aerosol powder INHALE 1 PUFF BY MOUTH TWICE DAILY RINSE MOUTH AFTER USING. 024 Active clonazePAM (KlonoPIN) 0.5 MG tabletIndication s:Anxious depression Take 1 tablet (0.5 mg) by mouth every 12 (twelve) hours. 60 tablet 1 024 Active SUMAtriptan (Imitrex) 50 [...] 16 g 024 2024 Active sodium chloride ([place]) 0.65 % nasal spray Administer 1 spray into each nostril if needed for congestion. 15 mL 2 024 2024 Active montelukast (Singulair) 10 MG tabletIndication s:Mild persistent asthma without complication TAKE 1 TABLET BY MOUTH EVERY DAY IN THE MORNING 90 tablet 1 024 Active albuterol (Ventolin HFA) 108 (90 Base) MCG/ACT inhalerIndicatio ns:Mild persistent asthma without complication Inhale 2 puffs every 4 (four) hours if needed for wheezing or shortness of breath. 18 g 3 025 Active cyanocobalamin (Vitamin B-12) 1000 MCG tabletIndication s:Cobalamin deficiency TAKE 1 TABLET BY MOUTH ONCE DAILY 90 tablet 1 025 Active Acetaminophen Extra Strength 500 MG tabletIndication s:Concussion without loss of consciousness, subsequent encounter TAKE 2 TABLETS BY MOUTH EVERY 6 HOURS NEEDED FOR PAIN OR FEVER 50 tablet 025 Active psyllium (Metamucil Smooth Texture) 58.6 % powder Take 5.12 g (3 g of fiber) by mouth 2 times daily. 283 g 2 025 2025 Active FT Stool Softener 50-8.6 MG tablet TAKE 1 TABLET BY MOUTH ONCE DAILY 90 tablet 1 Active EPINEPHrine (Epipen) 0.3 MG/0.3ML injection syringeIndicatio ns:Allergic rhinitis, unspecified INJECT INTRAMUSCULARLY DIRECTED ON PACKAGE AND GO TO EMERGENCY ROOM 2 each Active Fluocinolone Acetonide Scalp 0.01 % oilIndications:S eborrheic dermatitis of scalp APPLY A THIN LAYER TO DAMP SCALP, MASSAGE WELL AND COVER, LEAVE ON FOR 4 HOURS OR OVERNIGHT, THEN WASH OFF DIRECTED 118.28 mL 1 Active cholecalciferol (Vitamin D-3) 125 MCG (5000 UT) capsule TAKE 1 CAPSULE BY MOUTH ONCE DAILY 90 capsule 1 Active traZODone (Desyrel) 100 MG tablet TAKE 1 TABLET BY MOUTH EVERY DAY AT BEDTIME 90 tablet Active meclizine (Antivert) 25 MG tabletIndication s:Vertigo TAKE 1 TABLET BY MOUTH THREE TIMES DAILY IN THE MORNING, AT NOON, AND AT BEDTIME NEEDED FOR DIZZINESS 30 tablet 2 Active lidocaine (Lidoderm) 5 % patchIndications :Concussion without loss of consciousness, subsequent encounter,Chroni c pain of both shoulders Apply 1 patch topically Once per day. apply 1 patch by transdermal route 2 times every day (May wear up to 12hours.) 30 patch 2 Active Diclofenac Sodium (Voltaren) 1 % gelIndications:C hronic pain of both shoulders,Neck pain Apply 2 g topically if needed in the morning and at bedtime (muscle pain). 100 g 3 Active buPROPion XL (Wellbutrin XL) 300 MG 24 hr tabletIndication s:Anxious depression TAKE 1 TABLET BY MOUTH EVERY DAY IN THE MORNING 90 tablet 025 Active ferrous gluconate (Fergon) 324 (38 Fe) MG tablet TAKE 1 TABLET BY MOUTH TWICE A WEEK 24 tablet 1 Active olmesartan (BENIcar) 20 MG tabletIndication s:Essential hypertension TAKE 1 TABLET BY MOUTH ONCE DAILY 90 tablet 1 025 Active cetirizine (ZyrTEC) 10 MG tabletIndication s:Seasonal allergic rhinitis due to pollen TAKE 1 TABLET BY MOUTH ONCE DAILY NEEDED FOR ALLERGIES 90 tablet 1 025 Active Tirzepatide-Weig ht Management (Zepbound) 12.5 MG/0.5ML solution auto-injectorInd ications:Class 3 severe obesity due to excess calories with serious comorbidity and body mass index (BMI) of 40.0 to 44.9 in adult Inject 0.5 mL (12.5 mg) as directed 1 (one) time per week. INJECT ONE PEN (=12.5 MG) SUBCUTANEOUSLY ONCE A WEEK 2 mL 025 Active olmesartan (BENIcar) 20 MG tabletIndication s:Essential hypertension TAKE 1 TABLET BY MOUTH ONCE DAILY 90 tablet 1 024 2024 Discontinued cetirizine (ZyrTEC) 10 MG tabletIndication s:Seasonal allergic rhinitis due to pollen TAKE 1 TABLET BY MOUTH ONCE DAILY NEEDED FOR ALLERGIES 90 tablet 1 024 2024 Discontinued( Reorder (will not trigger notification to Pharmacy)) ferrous gluconate (Fergon) 324 (38 Fe) MG tablet Take 1 tablet (324 mg) by mouth 2 (two) times a week. 8 tablet 4 025 2024 Discontinued ibuprofen 800 MG tablet Take 1 tablet (800 mg) by mouth if needed each day for mild pain. 15 tablet 025 2024 Tirzepatide-Weig ht Management (Zepbound) 10 MG/0.5ML solution auto-injectorInd ications:Class 3 severe obesity due to excess calories with serious comorbidity and body mass index (BMI) of 40.0 to 44.9 in adult Inject 0.5 mL (10 mg) under the skin 1 (one) time per week. Increase dose monthly 2 mL 025 2024 Discontinued Active Problems Problem Noted Date Diagnosed Date Eye lump 05/19/2024 Hordeolum externum of left lower eyelid 05/20/19 25 Assessment & Plan (05/19/2024 11:09 AM EDT): [...] with prescriber at her outpatient agency, [facility]. Meanwhile, will continue Wellbutrin XL 300 mg [...] Hypothyroidism 12/24/2014 Overview (08/05/2022): [place] [facility] [place] Heber Murdock Last [...] a hx of recurrent sinusitis. 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 Plan: Continue Zyrtec. Start Augmentin BID x 7 days F/u with new museum informatics specialist Environmental and seasonal allergies 04/02/2022 10/31/2022 Overview (08/05/2022): Care managed by [employer] Receives allergy shots Assessment & Plan (08/05/2022 [...] been receiveing immunotherapy in the past unfortunatelly museum informatics specialist retired and she was unable to contine. Her nasal congestion is preventing her from sleeping. On exam she has significant turbinate erythema. She is already using otc Afrin and nasal steroids with no good results as well as daily antihistaminics Plan: Medrol dose pack while she sees her museum informatics specialist again to give her relief Exposure [...] Encounters Date Type Department Care Team Description 09/20/2024 Refill [facility] [address] [place] [address] Roberta Burroughs MD Class 3 severe obesity due to excess calories with serious comorbidity and body mass index (BMI) of 40.0 to 44.9 in adult 09/19/2024 Refill [facility] [address] [place], [place] [phone] Karina Eaton MD Seasonal allergic rhinitis due to pollen 09/18/2024 Refill [facility] [address] [place] [address] Derek Trujillo MD Cobalamin deficiency 09/18/2024 Refill [facility] [address] [place] [address] Roberta Burroughs MD Essential hypertension; Seasonal allergic rhinitis due to pollen 08/30/2024 Orders Only [facility] [address] [place], [place] [phone] Roberta Burroughs MD Class 3 severe obesity due to excess calories with serious comorbidity and body mass index (BMI) of 40.0 to 44.9 in adult (Primary Dx) 08/29/2024 Refill [facility] [address] [place], [place] [phone] Roberat Burroughs MD Class 3 severe obesity due to excess calories with serious comorbidity and body mass index (BMI) of 40.0 to 44.9 in adult 08/03/2024 Telephone [facility] [address] [place] [address] Roberta Burroughs MD Prior Authorization 08/02/[address] [address] Roberta Burroughs MD Prior Authorization 07/24/[address] [phone] Roberta Burroughs MD recall 07/17/[address] [phone] Twila Ly MD Class 3 severe obesity due to excess calories with serious comorbidity and body mass index (BMI) of 40.0 to 44.9 in adult from Last 3 Months Immunizations Immunization Administration [...] Description 10/19/2024 2:30 PM EDT Office Visit [facility] [address] [place], [place] [phone] Rboerta Burroughs MD [address] [place], [place] [phone] Health Maintenance Due Date Last Done Comments Family Planning (PISQ) 10/24/1998 HPV Vaccines (1 - 3-dose series) 10/24/1998 Hepatitis A Vaccines (1 of 2 - Risk 2-dose series) 10/24/2002 Pneumococcal Vaccine: Pediatrics (0 to 5 Years) and At-Risk Patients (6 to 49) Years (1 of 2 - PCV) 10/24/2002 COVID-19 Vaccine ( - season) 2023 07/12/2020, 06/14/2020 Depression Monitoring 04/07/2024 [...] PM EDT Narrative 04/29/2024 12:17 PM EDT [address] [place] [address] Mammography Report Signed Patient: Catalina Wood MR#: [id number] : 1985 Acct:[id number] Age/Sex: 38 / F ADM Date: 04/20/24 Loc: HO.MAMMO Attending Dr: Roberta Acuna MD Ordering Physician: Roberta Burroughs MD Re sults: 1Negative Date of Service: 04/20/24 Follow Up: 1 Year From Orig inal Mammogram Procedure(s): MM tomosynthesis screening BI Accession Number(s): [id number] cc: Roberta Burroughs MD EXAMINATION: MM SCREENING [...] 04/29/24 1214 DD/ 1525 TD/TT: 04/20/24 1538 Digital Project Manager: Procedure Note Donotuseinterpreter, Image - 04/29/2024 [facility] [address] [place], [place] [address] Mammography Report Signed Patient: Catalina Wood#: [id number] : 1985Acct:[id number] Age/Sex: 38 / FADM Date: 04/20/24 Loc: HO.MAMMO Attending Dr: Roberta Acuna MD Ordering Physician: Roberta Burroughs sults: 1Negative Date of Service: 04/20/24Follow Up: 1 Year From Orig inal Mammogram Procedure(s): MM tomosynthesis screening BI Accession Number(s): [id number] cc: Roberta Burroughs MD EXAMINATION: MM SCREENING [...] 04/29/24 1214 DD/ 1525 TD/TT: 04/20/24 1538 Digital Project Manager: us Roberta Acuna MD IMG BI PROCEDURES Edited Result - Final * Hepatitis C Antibody with Reflex to HCV, RNA, Quantitative, Real-Time PCR (12/10/2023 11:55 AM EDT) Hepatitis C Antibody Nonreactive Nonreactive [facility] Comment:Antibodies to HCV no t detected; does not exclude early acuteHCV infection. Blood Venous blood specimen / Unknown 12/10/2023 11:55 AM EDT 12/10/2023 1:25 PM EDT Roberta Acuna MD LAB BLOOD ORDERAB LES Final Result Performing Organization Address City/[facility]/ZIP Co de Phone Number [facility] [address] [place] [phone] * HIV-1/2 Antigen and Antibodies, Fourth Generation, with Reflexes (12/10/2023 11:55 AM EDT) HIV AB/AG Nonreactive Nonreactive [facility] Comment:HIV-1 p24 Ag and/or HIV-1/HIV-2 Ab not detected.A test result that is nonreactive does not exclude thepossibility of exposure to or infection with HIV-1 and/orHIV-2. Nonreactive results in this assay for individualswith prior exposure to HIV-1 and/or HIV-2 may be due toantigen and antibody levels that are below the limit ofdetection of this assay.The [employer] HIV Ag/Ab Combo assay result andsupplemental assay results should be interpreted inconjunction with the patient's clinical presentation,history and other laboratory results. If the results areinconsistent with clinical evidence, additional testing issuggested to confirm the result. Blood Venous blood specimen / Unknown 12/10/2023 11:55 AM EDT 12/10/2023 1:25 PM EDT Roberta Acuna MD LAB BLOOD ORDERAB LES Final Result Performing Organization Address [facility]/ZIP Co de Phone Number [facility] [address] [place] [address] [phone] * (ABNORMAL) Lipid Panel, Standard (12/10/2023 11:53 AM EDT) Triglycerides 49 <150 mg/dL [facility] Comment:Desirable Triglyceri de: less than 150 mg/dLBorderline High Triglyceride 150-199 mg/dLHigh Triglyceride: 200-499 mg/dLVery High Triglyceride: greater than or equal to 5OO mg/dL Cholesterol 163 <200 mg/dL [facility] Comment:Desirable Cholestero l: less than 200 mg/dLBorderline High Cholesterol: 200-239 mg/dLHigh Cholesterol: greater than 239 mg/dL LDL Cholesterol Calculated 100(H) <100 mg/dL [facility] Comment:Desirable LDL: less than 100 mg/dLNear Optimal/Above Optimal LDL: 110- 129 mg/dLBorderline High LDL: 130-159 mg/dLHigh LDL: 160-189 mg/dLVery High LDL: greater than or equal to 190 mg/dL HDL Cholesterol 54 >40 mg/dL [facility] Comment:Desirable HDL: great er than 40 mg/dL Note: This HDL assay may give artificially low results in patients with liver disease. Blood Venous blood specimen / Unknown 12/10/2023 11:53 AM EDT 12/10/2023 1:25 PM EDT us Roberta Acuna MD LAB BLOOD ORDERAB LES Final Result [facility] [address] [place] [phone] * Pap Smear (01/12/2023 9:41 AM EST) 01/12/2023 9:41 AM EST 01/13/2023 12:30 PM EST Narrative [facility] - 01/18/2023 1:41 PM EST ----- ------- Name: Catalina Wood Age/Sex: 37/F : 1985 Unit#: [id number] Attend Dr: Sparkle Maldonado CNM Re01/12/23 Status: DEP REF Location: [facility] Disch: ----- ------- SPEC : [id number] RECD: 01/13/23-1230 STATUS: ROSSANA GARIBAY NUM: [id number] BALJINDER: 01/12/[address] [facility] [address]: Sparkle Maldonado CNM ENTERED: 01/13/23-150 SP TYPE: Pap Smr OTHR DR: Vida Van ORDERED: Pap Smear Interpretation Satisfactory for evaluation. Mild inflammation. Hyperkeratosis noted. Negative for intraepithelial lesion or malignancy. HPV mRNA E6/E7: NOT DETECTED This assay detects E6/E7 viral messenger RNA (mRNA) from 14 high-risk HPV types (16, 18, 31, 33, 35, 39, 45, 51, 52, 56, 58, 59, 66, 68) HPV testing performed by [facility], [place], [place]. See reference laboratory portion of the EMR for entire report. Clinical Information LMP: 12/13/22 Previous PAP test: 2018, WNL Material Received ThinPrep-Cervical Copies To: Sparkle Maldonado CNM [address] [place] [address] Dr. Hui [address] [place] [phone] Vida Van [facility] [address] [place] [address] ----- ------- Signed (signature on file) ERICKA Roa ([facility]) 01/18/23 1341 ----- ------- END OF REPORT us Generic External Data Provider LAB CYTOLOGY DINAE LEXI Final Result [facility] [address] [place] [phone] from Last 3 Months or Most Recently Relevant to Health Maintenance Insurance [facility] ST[employer] Care Teams Websphere Developer Relationship Specialty Start Date End Date Roberta Burroughs MD [address] [place] [address] PCP - General Internal Medicine 08/05/22 Gonsalo Unger FNP [address] [place] [phone] Nurse Practitioner Family Medicine 12/28/22
--- OUTSIDE RECORDS SUMMARY | 2024-10-10 13:35 | XMS_ITS | Encounter Summary ---
Author Organization [employer] Address [address] [place] [address] Care Team Providers Care Jigger Operator Name Role Phone Roberta Burroughs MD Primary Care Pro vider Gonsalo Unger Unavailable Unavailable Reason for Visit * Reason Comments Med Refill Encounter Details Date Type Department Care Team (Late st Contact Info) Description 11/10/2022 Refill [facility] [address] [place] [address] Vida Van FNP Seasonal allergic rhinitis due to pollen Social [...] Description 10/19/2024 2:30 PM EDT Office Visit [facility] [address] [place] [address] Roberta Burroughs MD [address] [place] [phone] documented as of this encounter Visit Diagnoses Diagnosis Seasonal allergic rhinitis due to pollen documented in this encounter Additional Health Concerns Assessment Noted Time PHQ-9 Depression Total Score: 10 023 2:49 PM EDT documented as of this encounter Care Teams Jigger Operator Relationship Specialty Start Date End Date Roberta Burroughs MD [address] [place] [phone] PCP - General Internal Medicine 08/05/22 Gonsalo Unger FNP [address] [place] [phone] Nurse Practitioner Family Medicine 12/28/22 documented as of this encounter
--- OUTSIDE RECORDS SUMMARY | 2024-10-10 13:35 | XMS_ITS | Clinical Summary ---
Author Organization [facility] Address [address] [place] [address] Care Team Providers Care Staff Electronic Warfare Officer Name Role Phone Gonsalo Unger NP Primary Care Provider [phone] Social History Tobacco Use Types Packs/Day Years [...] Cervical Cancer Screening: P ap Smear 10/24/2004 Depression Screening 02/09/2024 COVID-19 Vaccine (2023-2 5 season) 2024 Influenza Vaccine (#1) 2024 HIB Vaccines Aged [...] age to complete this topic Care Teams Staff Electronic Warfare Officer Relationship Specialty Start Date End Date Gonsalo Unger NP [address] [place], [place] PCP - General Internal Medicine 06/24/16
--- OUTSIDE RECORDS SUMMARY | 2024-10-10 13:35 | XMS_ITS | Encounter Summary ---
Author Organization [employer] Address [address] [place] [address] [address] [place] [address] Care Team Providers Care Building Code Administrator Name Role Phone Vida Van Primary Care Provider Roberta Ritchie MD Primary Care Pro vider Gonsalo Unger Unavailable Unavailable Encounter Details Date Type Department Care Team (Late Contact Info) Description 02/04/2022 Telephone [facility] [address] [place] [phone] Vida Van FNP Social History Tobacco Use Types Packs/Day Years [...] Department Care Team (Late Contact Info) Description 10/19/2024 2:30 PM EDT Office Visit [facility] [address] [place] [phone] Roberta Burroughs MD [address] [place], [place] [phone] documented as of this encounter Visit Diagnoses Not on filedocumented in this encounter Additional Health Concerns Assessment Noted Time PHQ-9 Depression Total Score: 20 022 2:35 PM EST documented as of this encounter Care Teams Building Code Administrator Relationship Specialty Start Date End Date Vida Van FNP PCP - General Family Medicine 10/06/21 08/04/22 Roberta Burroughs MD [address] [place] [phone] PCP - General Internal Medicine 08/05/22 Gonsalo Unger FNP [address] [place] [phone] Nurse Practitioner Family Medicine 12/28/22 documented as of this encounter
--- OUTSIDE RECORDS SUMMARY | 2024-10-10 13:35 | XMS_ITS | Encounter Summary ---
Author Organization [facility] Address [address] [facility] [address] [place] [address] Care Team Providers Care Seam Closer Name Role Phone Roberta Burroughs MD Primary Care Pro vider Gonsalo Unger Unavailable Unavailable Reason for Visit * Reason Comments Med Refill Encounter Details Date Type Department Care Team (Late st Contact Info) Description 06/07/2024 Refill [facility] [address] [place], [place] [phone] Karina Eaton MD [address] [place] [address] Social History Tobacco Use Types Packs/Day Years [...] 2:30 PM EDT Office Visit [facility] [address] [place] [address] Roberta Burroughs MD [address] [place] [phone] documented as of this encounter Visit Diagnoses Not on filedocumented in this encounter Additional Health Concerns Assessment Noted Time PHQ-9 Depression Total Score: 17 024 11:32 AM EDT documented as of this encounter Care Teams Seam Closer Relationship Specialty Start Date End Date Roberta Burroughs MD [address] [place] [phone] PCP - General Internal Medicine 08/05/22 Gonsalo Unger FNP [address] [place] [phone] Nurse Practitioner Family Medicine 12/28/22 documented as of this encounter
--- OUTSIDE RECORDS SUMMARY | 2024-10-10 13:35 | XMS_ITS | Encounter Summary ---
Author Organization [employer] Address [address] [place] [address] Care Team Providers Care Mohs Surgeon Name Role Phone Roberta Burroughs MD Primary Care Pro vider Gonsalo Unger Unavailable Unavailable Reason for Visit * Reason Comments Med Refill Encounter Details Date Type Department Care Team (Late st Contact Info) Description 11/10/2022 Refill [facility] [address] [place] [address] Gonsalo Unger FNP Anxious depression Social History Tobacco Use Types Packs/Day Years Used Date Smoking Tobacco: Never Smokeless Tobacco: Never Alcohol Use Standard Drinks/Week Comments Yes 0 (1 standard drink = 0.6 oz pur e alcohol) social Depression Answer Date Recorded Patient Health Questionnaire-9 Score 10 10/30/2022 Housing Stability Answer Date Recorded What is your housing situation today? I have robbypatricia cornelius 11/14/[address] you [...] t he electric, gas, oil or water [place] threatened to shut off services in your [...] encounter Miscellaneous Notes * Telephone Encounter - iTa Sepulveda RN - 11/10/2022 2:58 PM EDT TC to pt regarding message below; Clonazepam 0.5mg refill, no answer. 2 more refills left. documented in this encounter Plan of Treatment Upcoming Encounters Date Type Department Care Team (Late st Contact Info) Description 10/19/2024 2:30 PM EDT Office Visit [facility] [address] [place] [phone] Roberta Burroughs MD [address] [place] [phone] documented as of this encounter Visit Diagnoses Diagnosis Anxious depression documented in this encounter Additional Health Concerns Assessment Noted Time PHQ-9 Depression Total Score: 10 023 2:49 PM EDT documented as of this encounter Care Teams Mohs Surgeon Relationship Specialty Start Date End Date Roberta Burroughs MD [address] [place] [phone] PCP - General Internal Medicine 08/05/22 Gonsalo Unger FNP [address] [place] [phone] Nurse Practitioner Family Medicine 12/28/22 documented as of this encounter
[2024-10-10 14:24] LABS: Free T4 (Free Thyroxine) 1.56 ng/dL (0.71-1.85); Thyroid Stimulating Hormone 3.92 uIU/mL (0.32-4.0)
== END 2024-10-10 12:25 | disposition home or self-care (01) ==
LOC: HO.10HDL 12:24
PROVIDERS: Visit Provider Student in an Organized Health Care Education/Training Program
DX: E89.0 Postprocedural hypothyroidism (principal); Z79.899 Other long term (current) drug therapy
CPT/HCPCS: 36415; 84439; 84443; 99212

== ENCOUNTER 2024-10-10 12:30 | Outpatient (AMB) | payer MEDICAID, SELFPAY ==
[2024-10-10 12:38] VITALS: BP 100/64; PULSE 87; O2SAT 98; BMI 32.2
--- NOTE | 2024-10-10 12:38 | MHC.OFFVIS ---
Vital Signs 10/10/24 12:38 Height 5 ft 3 in Weight 181 lb 14.102 oz BMI 32.2 BP 100/64 Blood Pressure Location Lt brachial Position Sitting Pulse 87 Pulse Source Pulse Oximeter Pulse Oximetry (%) 98 Oxygen Delivery Method Room Air Intake Visit Reasons: Postablative hypothyroidism Intake Note: Patient present today for Post-ablative hypothyroidism office visit. Structural Design Engineer Required: No Accompanied by: Self / Same As Patient Allergies No Known Allergies Allergy (Verified 10/10/24 12:41) Medication List - Last Reconciled 10/10/24 by Roopa Rogers MD acyclovir 5% 1 appl topical 6XD 7 days albuterol sulfate 90 mcg/actuation 2 puffs inhalation Q6H PRN 30 days amitriptyline 50 mg (2 x 25 mg) PO BEDTIME 90 days [Anti-pronation orthotics Anti-pronation orthotics] bupropion HCl XL 300 mg PO QAM cholecalciferol (vitamin D3) 25 mcg PO QAM clonazepam 0.25 mg PO BID clotrimazole-betamethasone 1-0.05 % 1 appl topical BID 7 days cyanocobalamin (vitamin B-12) 1,000 mcg PO DAILY cyclobenzaprine 5 mg PO BID PRN 30 days diclofenac sodium 1% (Voltaren Arthritis Pain) 4 grams topical QID docusate sodium (Colace) 100 mg PO DAILY epinephrine IM ferrous gluconate 324 mg PO 2XW fluticasone propion-salmeterol 250-50 mcg/dose (Wixela Inhub) 1 inh inhalation BID 30 days fluticasone propionate 50 mcg/actuation 2 sprays intranasal DAILY ibuprofen 600 mg PO Q6H PRN levothyroxine 137 mcg PO DAILY meclizine 25 mg PO TID PRN menthol-zinc oxide 0.44-20.6 % (Calmoseptine) 1 appl topical QID PRN montelukast 10 mg PO DAILY olmesartan 20 mg PO DAILY ondansetron 4 mg PO DAILY 30 days sumatriptan succinate take 1 tab at onset of headache; if no relief may repeat 1 tab after at least 2 hrs; PO 30 days tirzepatide (weight loss) (Zepbound) mg subcut QWEEK topiramate 50 mg PO BID 90 days trazodone 100 mg PO BEDTIME PRN 30 days valacyclovir (Valtrex) 500 mg PO DAILY 90 days HPI Comments Details: 38-year-old female with postablative hypothyroidism, who presents for follow up. . HPI from prior visit Patient reports treated with SEGOVIA ablation of thyroid in her 20s. Subsequently has been treated with Tirosint. Currently remains on Tirosint 137 mcg daily. Has not taken it for the past week was run out of medication. Takes fasting am sometimes with water or juice. Eats 2 hours later. About 3 times a week takes medication at bedtime when forgets in AM Most recent labs from May 2023 showed normal thyroid function with TSH of 1.79 and free T4 of 1.47. Patient currently denies heat or cold intolerance, but does get diaphoresis, constipation, hair loss, palpitation, anxiety, weight changes, mood changes, low energy, changes in appearance of eyes or vision changes, tremors. ? Patient denies any difficulty swallowing, pain on swallowing or voice changes or difficulty breathing. Patient denies any history of childhood neck radiation. Denies having ever used lithium, amiodarone or biotin supplements. Patient denies any family history of thyroid cancer . Daughter and sister have thyroid disease. 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 Patient denies any allergic reaction to the generic medication, and does not remember any adverse effect with the generic. She thinks maybe she did have some fluctuations in her TSH on the generic which is why she was started on the Tirosint. reports fatigue current On tirosint 137 mcg daily Missed 2 pills this week and says she missed 1-2 pills per week Last set of blood work is from December 2023 when TSH was noted to be high at 9.22 with free T4 at 1.12. Interval history 10/10/2024 On levothyroxine 137 mcg daily Didnt do repeat labs in summer 2024 and then also just did blood work right before coming to [facility] ,results not available Reports new voice hoarseness Physical exam General: sitting comfortably in no acute distress HEENT: normocephalic/atraumatic, moist oral mucosa Neck: supple, symmetrical, no thyromegaly , no dorsocervical or supraclavicular fat pads Cardiac: normal heart sounds Pulm: normal breath sounds B/L, no added breath sounds Abd: not distended, no tenderness Extremities: no edema, no signs of myxedema Laboratory Tests 01/09/20 06/14/20 11/07/20 13:40 15:33 15:45 TSH 0.44 5.49 H 12.64 H Free T4 1.29 1.12 1.15 07/15/22 11/13/22 05/17/23 13:02 13:16 08:11 TSH 3.97 7.68 H 1.79 Free T4 1.29 1.05 1.47 Laboratory Tests 12/10/23 11:53 TSH 9.22 H Free T4 1.12 Laboratory Tests 06/05/24 12:45 TSH 6.24 H Free T4 1.00 [facility] Medical History (Updated 09/12/24 @ 13:17 by Geetha Smith CNP) Insomnia Carpal tunnel syndrome, bilateral upper limbs Depression Muscle tension headache Vulvar itching Abnormal urine odor Internal and external bleeding hemorrhoids Pruritus ani Migraine Anxiety B12 deficiency Vitamin D deficiency Obesity Postablative hypothyroidism Surgical History Hx of dilation and curettage Family History Father Cancer Mother Hypertension Diabetes High cholesterol CVD (cardiovascular disease) Social History Household Members Other:: daughter Housing: House Alcohol intake: never Patient Tobacco Use Status: Never used Tobacco Current occupational status: unemployed Sexual orientation: Straight/Heterosexual Gender identity: Female Physical Exam Vital Signs: Last Vital Signs Pulse 87 10/10/24 12:38 BP 100/64 10/10/24 12:38 Pulse Ox 98 10/10/24 12:38 Oxygen Delivery Method Room Air 10/10/24 12:38 BMI result Body Mass Index 32.2 Assessment & Plan Assessment & Plan (1) Postablative hypothyroidism: Code(s): E89.0 - Postprocedural hypothyroidism Category: Medical Plan: Patient with history of SEGOVIA ablation in her 20s, who is being managed for postablative hypothyroidism. Currently on levothyroxine 137 mcg daily, per patient good administration and adherence methods. She was supposed to repeat blood work in summer 2024 and then prior to this appointment. She only did blood work today, results not available. At this time we will continue her on the same dose. Plan: -continue levothyroxine 137 mcg daily -follow up results of TSH, free T4 , we will reach out with the results -follow up in 1 year, we will need repeat blood work prior to this appointment as well Plan See above Medications: Refilled levothyroxine 137 mcg PO DAILY 30 tabs 12RF Coding Level of Care Code Est Pt Level 3 (17282) Diagnoses Postablative hypothyroidism E89.0
== END 2024-10-10 14:09 | disposition home or self-care (01) ==
PROVIDERS: PCP Student in an Organized Health Care Education/Training Program; Visit Provider Student in an Organized Health Care Education/Training Program
DX: E89.0 Postprocedural hypothyroidism (principal)
CPT/HCPCS: 99213

== ENCOUNTER 2024-12-05 12:47 | Outpatient (AMB) | payer MEDICAID, SELFPAY ==
--- NOTE | 2024-12-05 12:52 | MHC.OFFVIS ---
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 Intake Note: New patient c/o palpitations that that wake her up at night but sob with any activity [employer] Vehicle [employer] Supervisor Required: No Allergies No Known Allergies Allergy (Verified 10/10/24 12:41) Medication List - Last Reconciled 12/05/24 by Rommel Zelaya MD acyclovir 5% 1 appl topical 6XD 7 days albuterol sulfate 90 mcg/actuation 2 puffs inhalation Q6H PRN 30 days amitriptyline 50 mg (2 x 25 mg) PO BEDTIME 90 days [Anti-pronation orthotics Anti-pronation orthotics] bupropion HCl XL 300 mg PO QAM cholecalciferol (vitamin D3) 25 mcg PO QAM clonazepam 0.25 mg PO BID clotrimazole-betamethasone 1-0.05 % 1 appl topical BID 7 days cyanocobalamin (vitamin B-12) 1,000 mcg PO DAILY cyclobenzaprine 5 mg PO BID PRN 30 days diclofenac sodium 1% (Voltaren Arthritis Pain) 4 grams topical QID docusate sodium (Colace) 100 mg PO DAILY epinephrine IM fluticasone propion-salmeterol 250-50 mcg/dose (Wixela Inhub) 1 inh inhalation BID 30 days fluticasone propionate 50 mcg/actuation 2 sprays intranasal DAILY ibuprofen 600 mg PO Q6H PRN levothyroxine 137 mcg PO DAILY meclizine 25 mg PO TID PRN menthol-zinc oxide 0.44-20.6 % (Calmoseptine) 1 appl topical QID PRN montelukast 10 mg PO DAILY olmesartan 20 mg PO DAILY ondansetron 4 mg PO DAILY 30 days sumatriptan succinate take 1 tab at onset of headache; if no relief may repeat 1 tab after at least 2 hrs; PO 30 days tirzepatide (weight loss) (Zepbound) mg subcut QWEEK topiramate 50 mg PO BID 90 days trazodone 100 mg PO BEDTIME PRN 30 days valacyclovir (Valtrex) 500 mg PO DAILY 90 days HPI Comments Details: I was consulted to see Desire in cardiology consultation today for exertional shortness of breath. Patient is a 39 year female with prior history of hypertension on olmesartan, asthma being managed by Pulmonary he has been having increasing shortness of breath which is concerning. She says she can not even walk a block before she gets short of breath and has a funny feeling in his chest. She also can not do house work and gets short of breath and has funny feeling in his chest. Declines any chest pain but says that her heart rate is going rapid. She is concerned about the symptoms. Denies any orthopnea, PND. She says she occasionally gets fast heart rate. She has been taking olmesartan but she says she has been losing weight with Zepbound and yesterday she felt lightheaded with orthostatic dizziness and took a blood pressure and felt this was low. She would not she is worried about restarting olmesartan therapy. She says her mom had congestive heart failure, she is does not know details. Not sure if anybody had premature coronary artery disease. [facility] Medical History Insomnia Carpal tunnel syndrome, bilateral upper limbs Depression Muscle tension headache Vulvar itching Abnormal urine odor Internal and external bleeding hemorrhoids Pruritus ani Migraine Anxiety B12 deficiency Vitamin D deficiency Obesity Postablative hypothyroidism Surgical History Hx of dilation and curettage Family History Father Cancer Mother Hypertension Diabetes High cholesterol CVD (cardiovascular disease) Social History Household Members Other:: daughter Housing: House Alcohol intake: never Patient Tobacco Use Status: Never used Tobacco Current occupational status: unemployed Sexual orientation: Straight/Heterosexual Gender identity: Female Review of Systems Const Denies chills, Denies daytime sleepiness, Denies fatigue, Denies fever(s), Denies frequent falls, Denies poor appetite, Denies snoring, Denies stops breathing during sleep, Denies weakness, Denies weight gain and Denies weight loss Eyes Denies loss of vision ENT Denies dizziness and Denies hearing loss Card Denies chest pain, Denies claudication, Denies leg edema, Denies lightheadedness, Denies palpitations, Denies dyspnea, Denies dyspnea on exertion and Denies orthopnea Resp Denies cough, Denies excessive phlegm production, Denies dyspnea, Denies dyspnea on exertion, Denies snoring and Denies wheezing GI Denies abdominal pain, Denies hematochezia, Denies change in bowel habits, Denies nausea and Denies vomiting Denies urinary frequency and Denies dysuria Musc Denies arthralgias, Denies muscle weakness and Denies numbness Skin/Breast Denies nail changes and Denies rash Neuro Denies Abnormal speech present, Denies dizziness, Denies frequent falls, Denies loss of vision, Denies memory loss, Denies numbness and Denies weakness Psych Denies depression and Denies memory loss Endo Denies fatigue and Denies palpitations Trent/Lymph Reports easy bruising and Reports other (anemia) Aller/Immun Denies wheezing Physical Exam Vital Signs: Last Vital Signs Pulse 84 12/05/24 12:54 BP 120/74 12/05/24 12:54 BMI result Body Mass Index 28.9 Const General: cooperative, comfortable, no acute distress, alert, awake, Physically active and anxious Nutritional Appearance: overweight Orientation/consciousness: patient oriented x3 Limitations: no limitations HEENT Head: Yes normocephalic and Yes atraumatic Neck Neck: Yes trachea midline, Yes supple and Yes no JVD Resp Effort & Inspection: normal respiratory effort Auscultation: clear to auscultation bilaterally and diminished lung sounds Cardio Jugular venous distension: no JVD Palpation: normal PMI Rate: regular rate Rhythm: regular rhythm Heart sounds: S1 normal heart sound present, S2 normal heart sound present, no click, no gallops, no murmurs and no rubs GI Auscultation: normal bowel sounds Skin General skin exam: no rashes or lesions noted Neuro General: patient oriented x3 and no focal motor deficits Speech: No Abnormal speech present Extrem General: Yes no clubbing, cyanosis or edema Psych Appearance: grossly normal Office Procedures EKG Details: EKG shows normal sinus rhythm with poor R-wave progression [id number], Complete Assessment & Plan Assessment & Plan (1) Dyspnea on exertion: Code(s): R06.09 - Other forms of dyspnea Category: Medical Plan: Shortness of breath on exertion with her mom having history of heart failure inpatient with hypotension although MIBI over corrected now at this point time that she has lost weight. Blood pressure today is well optimized without taking medications. I have advised her to reduce olmesartan to 5 mg daily to avoid any spikes in his blood pressure. Advised to continue monitor blood pressure at home. For blood pressure remains on the lower side then olmesartan can be discontinued. Low-salt diet was discussed. Her shortness of breath exertion probably related to deconditioning and underlying pulmonary bronchospastic airway disease. Although need to rule out any evidence of underlying structural heart disease including cardiomyopathy and hypertensive heart disease. Would suggest echocardiogram to assess for the same. Myocardial ischemia is less likely although can be possible and would suggest a stress echocardiogram to further assess for the same. Will follow up in the clinic in 6 weeks time after above-mentioned test. Thank you for allowing me to partake in her care Orders: Orders CA echo transthoracic complete Today R06.09 - Other forms of dyspnea CA echo stress exercise Today R06.09 - Other forms of dyspnea Medications: New olmesartan 5 mg PO DAILY 30 tabs 1RF Coding Level of Care Code New Pt Level 4 (40385) Complex EM visit Add On G2211 Diagnoses Dyspnea on exertion R06.09 CPT Codes EKG - CPT: 93203-[id number], Complete ([id number])
[2024-12-05 12:54] VITALS: BP 120/74; PULSE 84; BMI 28.9
--- OUTSIDE RECORDS SUMMARY | 2024-12-05 16:07 | XMS_ITS | Clinical Summary ---
Author Organization [employer] Address [address] [facility] [address] [place] [address] Care Team Providers Care Garbage Pick Up Man Name Role Phone Roberta Burroughs MD Primary [...] DAILY 60 tablet 1 08/31/19 23 Active Advair Diskus 250-50 MCG/ACT aerosol powder INHALE 1 PUFF BY MOUTH TWICE DAILY RINSE MOUTH AFTER USING. 04/01/19 24 Active clonazePAM (KlonoPIN) 0.5 MG tabletIndications :Anxious depression Take 1 tablet (0.5 mg) by mouth every 12 (twelve) hours. 60 tablet 1 10/06/19 24 Active SUMAtriptan (Imitrex) 50 MG tablet [...] g 01/04/20 24 025 Active sodium chloride (Dillon) 0.65 % nasal spray Administer 1 spray into each nostril if needed for congestion. 15 mL 2 01/04/20 24 025 Active montelukast (Singulair) 10 MG tabletIndications :Mild persistent asthma without complication TAKE 1 TABLET BY MOUTH EVERY DAY IN THE MORNING 90 tablet 1 01/19/20 24 Active cyanocobalamin (Vitamin B-12) 1000 MCG tabletIndications :Cobalamin deficiency TAKE 1 TABLET BY MOUTH ONCE DAILY 90 tablet 1 04/21/19 25 Active Acetaminophen Extra Strength 500 MG tabletIndications :Concussion without loss of consciousness, subsequent encounter TAKE 2 TABLETS BY MOUTH EVERY 6 HOURS NEEDED FOR PAIN OR FEVER 50 tablet 06/29/19 25 Active psyllium (Metamucil Smooth Texture) 58.6 % powder Take 5.12 g (3 g of fiber) by mouth 2 times daily. 283 g 2 06/28/19 25 026 Active FT Stool Softener 50-8.6 MG tablet [...] bedtime (muscle pain). 100 g 3 06/28/19 25 Active buPROPion XL (Wellbutrin XL) 300 MG 24 hr tabletIndications :Anxious depression TAKE 1 TABLET BY MOUTH EVERY DAY IN THE MORNING 90 tablet 06/30/19 25 Active ferrous gluconate (Fergon) 324 (38 Fe) MG tablet TAKE 1 TABLET BY MOUTH TWICE A WEEK 24 tablet 1 09/20/19 25 Active olmesartan (BENIcar) 20 MG tabletIndications :Essential hypertension TAKE 1 TABLET BY MOUTH ONCE DAILY 90 tablet 1 09/20/19 25 Active cetirizine (ZyrTEC) 10 MG tabletIndications :Seasonal allergic rhinitis due to pollen TAKE 1 TABLET BY MOUTH ONCE DAILY NEEDED FOR ALLERGIES 90 tablet 1 09/20/19 25 Active Spacer/Aero-Holdi ng Chambers (OptiChamber Nohemi) misc 1 each every 4 (four) hours if needed (asthma). 1 each 10/19/19 25 Active acetaminophen (Tylenol) 500 MG tablet Take 2 tablets (1,000 mg) by mouth every 6 (six) hours if needed for moderate pain or fever for up to 25 doses. 50 tablet 10/19/19 Active albuterol (Ventolin HFA) 108 (90 Base) MCG/ACT inhalerIndication s:Mild persistent asthma without complication Inhale 2 puffs every 4 (four) hours if needed for wheezing or shortness of breath. 18 g 3 10/19/19 25 Active docusate sodium (Colace) 100 MG capsule Take 1 capsule (100 mg) by mouth if needed in the morning and at bedtime for constipation. 60 capsule 3 10/19/19 25 026 Active amitriptyline (Elavil) 50 MG tablet Take by mouth at bedtime. Active Tirzepatide-Weigh t Management (Zepbound) 15 MG/0.5ML solution auto-injector Inject 0.5 mL (15 mg) under the skin 1 (one) time per week. 6 mL 3 11/01/19 25 026 Active Active Problems Problem Noted Date Diagnosed Date Hordeolum externum of left lower eyelid 05/20/19 Assessment & Plan (05/19/2024 11:09 AM EDT): Apply warm compresses, pt endorses white exudate will add erythromycin Monitor for worsening symptoms or failure to resolve No foreign body, no contacts no make up until symptoms have resolve Hepatic lesion 10/06/2023 Hand pain 10/06/2023 Asthma 10/31/2022 Hirsutism 10/31/2022 Intrauterine contraceptive device [...] intake with prescriber at her outpatient agency, [facility]. Meanwhile, will continue Wellbutrin XL 300 mg [...] (08/05/2022): Care managed by [facility] Mathieu, Dr. Buck Last visit around 07/15/22 [...] Problem Noted Date Diagnosed Date Resolved Date Eye lump 05/19/2024 10/22/2024 Acute non-recurrent maxillary sinusitis 02/11/2024 10/22/2024 Assessment & Plan (02/11/2024 2:36 PM EST): Drink plenty of fluids and rest Augmentin for 7 days Acetaminophen PRN Easy bruising 06/04/2023 10/22/2024 Depression 08/05/2022 10/31/2022 Neck pain 06/08/2022 10/31/2022 Acute bacterial rhinosinusitis 04/02/2022 08/05/2022 Assessment & Plan (04/02/2022 1:49 PM EST): Pt with c/o severe right sided forntal and maxillary tenderness as well as sever congestion and nasal discharge. Pt has a hx of recurrent sinusitis. Unfortunately her early breastfeeding care specialist recently retired and she is awaiting to see a new one. Plan: Continue Zyrtec. Start Augmentin BID x 7 days F/u with new early breastfeeding care specialist Environmental and seasonal allergies 04/02/2022 10/31/2022 Overview (08/05/2022): Care managed by [facility] Receives allergy shots Assessment & Plan (08/05/2022 [...] been receiveing immunotherapy in the past unfortunatelly early breastfeeding care specialist retired and she was unable to contine. Her nasal congestion is preventing her from sleeping. On exam she has significant turbinate erythema. She is already using otc Afrin and nasal steroids with no good results as well as daily antihistaminics Plan: Medrol dose pack while she sees her early breastfeeding care specialist again to give her relief Exposure [...] Encounters Date Type Department Care Team Description 10/31/2024 Telephone [facility] [address] [place] [phone] Roberta Burroughs MD Refill Issues 10/31/2024 Orders Only [address] [address] Roberta Burroughs MD 10/31/[address] [address] Roberta Burroughs MD Class 3 severe obesity due to excess calories with serious comorbidity and body mass index (BMI) of 40.0 to 44.9 in adult 10/31/2024 Refill [facility] [address] [place] [phone] Roberta Burroughs MD Class 3 severe obesity due to excess calories with serious comorbidity and body mass index (BMI) of 40.0 to 44.9 in adult 10/19/2024 2:30 PM EDT Office Visit [address] [address] Roberta Burroughs MD Annual physical exam (Primary Dx); Dietary counseling; Exercise counseling; Hepatic lesion; Encounter for immunization; Essential hypertension; Class 3 severe obesity due to excess calories with serious comorbidity and body mass index (BMI) of 40.0 to 44.9 in adult; Postablative hypothyroidism; Health care maintenance; Anxious depression; Mood disorder (CMS/HCC); Moderate asthma, unspecified whether complicated, unspecified whether persistent 10/19/2024 Travel 10/18/2024 9:00 AM EDT Office Visit [facility] [address] [place] [phone] Gabe Cunha MD Non-recurrent acute suppurative otitis media of right ear without spontaneous rupture of tympanic membrane (Primary Dx); Acute otitis externa of right ear, unspecified type; Rectal bleeding; Excessive gas; Viral URI; Concussion without loss of consciousness, subsequent encounter; Mild persistent asthma without complication 10/18/2024 Telephone [facility] [address] [place] [phone] Roberta Burroughs MD Prior Authorization 10/18/2024 Refill [facility] [address] [place] [phone] Roberta Burroughs MD Class 3 severe obesity due to excess calories with serious comorbidity and body mass index (BMI) of 40.0 to 44.9 in adult 10/18/2024 Travel 10/12/2024 Patient Outreach [facility] [address] [place] [address] Roberta Burroughs MD Pre-visit Planning (SDOH screening negative and tobacco screening negative) 10/10/2024 Travel 09/20/2024 Refill [facility] [address] [place] [address] Roberta Burroughs MD Class 3 severe obesity due to excess calories with serious comorbidity and body mass index (BMI) of 40.0 to 44.9 in adult 09/19/2024 Refill [facility] [address] [place], [place] [phone] Karina Eaton MD Seasonal allergic rhinitis due to pollen 09/18/2024 Refill [facility] [address] [place] [address] Derek Trujillo MD Cobalamin deficiency 09/18/2024 Refill [facility] [address], [place] [phone] Roberta Burroughs MD Essential hypertension; Seasonal allergic rhinitis due to pollen from Last 3 Months Immunizations Immunization Administration Dates Next Due DT (pediatric) 07/06/1984,05/06/1984,03/04/1984 DTaP 09/22/1988,09/11/1985 Hep B, adult 12/16/2011, 6,07/19/1995,1995 Influenza injectable quadriv alent IIV4 with preservative 02/05/2022,2014 Influenza injectable quadriv alent preservative free 12/02/2022,01/24/2021,12/12/2019,2019,01/22/2016 Influenza, IIV3, injectable 11/06/2013, 1 Influenza, Split (incl. [place] f[place] antigen) 02/14/2013,12/16/2011 Influenza, seasonal, injecta ble, preservative free 12/10/2023 Moderna Covid-19 Vaccine 12+ 07/12/2020,06/15/19 21 Pneumococcal Conjugate PCV 20 10/19/2024 Tdap 04/08/2023,04/03/2013 Family History Medical History Relation [...] Answer Date Recorded Patient Health Questionnaire-9 Score 16 10/19/2024 Patient Health Questionnaire-9 Score 16 10/19/2024 Last PHQ-9: Questionnaire Data Not on file 0 10/19/2024 Housing Stability Answer Date Recorded What is your housing situation today? I have robby cornelius 10/12/[address] you li ve. Do you have problems with any of the following? None of the above 10/12/2024 Food Insecurity Answer Date Recorded Within the past 12 months, y ou worried that your food would run out before you got money to buy more: Never True 10/12/2024 Within the past 12 months,th e food you bought just didn't last and you didn't have enough money to get more: Never True 05/2024 Transportation Answer Date Recorded In the past 12 months, has l ack of transportation kept you from medical appts, meetings, work or from getting things needed for daily living? No 10/12/2024 Utilities Answer Date Recorded In the past 12 months, has t he [employer], gas, oil or water company threatened to shut off services in your home? No 10/12/2024 Depression Answer Date Recorded Patient Health Questionnaire-2 Score 5 10/19/2024 Internet Access Answer Date Recorded Internet Access Q1 Yes 10/12/2024 Internet Access Q2 Not on file 10/12/2024 Comments No Sex and Gender Information Value Date Recorded Sex Assigned at Female 12/08/2021 10:15 AM EDT Legal Sex Female 10:15 AM EDT Gender Identity Female 12/08/2021 10:15 AM EDT Sexual Orientation Choose not to disclose 2021 10:15 AM EDT Last Filed Vital Signs Vital Sign Reading Time Taken Comments Blood Pressure 116/64 10/19/2024 2:50 PM EDT Pulse 72 10/19/2024 2:50 PM EDT Temperature 36.1 C (96.9 F) 10/19/2024 2:50 PM EDT Respiratory Rate 20 10/19/2024 2:50 PM EDT Oxygen Saturation 96% 10/19/2024 2:50 PM EDT Inhaled Oxygen Concentration - - Weight 81.1 kg (178 lb 12.8 oz) 10/19/2024 2:50 PM EDT Height 160 cm (5' 3 ) 10/19/2024 2:50 PM EDT Body Mass Index 31.67 10/19/2024 2:50 PM EDT Plan of Treatment Health Maintenance Due Date Last Done Comments Family Planning (PISQ) 10/24/1998 HPV Vaccines (1 - 3-dose series) 10/24/1998 Hepatitis A Vaccines (1 of 2 - Risk 2-dose series) 10/24/2002 COVID-19 Vaccine ( season) 2024 07/12/2020, 06/14/2020 Influenza Vaccine (#1) 2024 , 12/02/2022, 02/05/2022, Additional history exists Depression Monitoring 04/18/2025 10/19/2024, 025 Alcohol/Substance Use Screening 06/27/2025 06/27/2024 Disability Screening 06/27/2025 06/27/2024 SDOH Screening 10/12/2025 10/12/2024 Tobacco Screening 10/19/2025 10/19/2024 Mammogram 04/20/2026 04/20/2024, 04/2023, 02/10/2023 Cervical Cancer Screening 01/13/2028 HPV/Cotest 01/13/2028 Pap Smear 01/13/2028 01/12/2023 Lipid Panel 12/09/2028 12/10/2023, 100 07/2022, 01/14/2022, Additional history exists DTaP/Tdap/Td Vaccines [...] C Screening Completed 12/10/2023 , 11/13/2022, 01/14/2022 Pneumococcal Vaccine: Pediatrics (0 to 5 Years) and At-Risk Patients (6 to 49) Years Completed 10/19/2024 HIB Vaccines Aged Out No longer eligi [...] INFLUENZA B (ID NOW RAPID MOLECULAR) Routine 10/18/2024 9:17 AM EDT Viral URI POCT INFLUENZA A (ID NOW RAPID MOLECULAR) Routine 10/18/2024 9:17 AM EDT Viral URI POCT RAPID STREP A Routine 10/18/2024 9: 17 AM EDT Viral URI POCT RAPID COVID ANTIGEN Routine 10/18/2024 9:17 AM EDT Viral URI BI MAMMOGRAM SCREENING TOMOSYNTHESIS BILATERAL Routine 04/20/2024 [...] * Influenza B (ID NOW Rapid Molecular) (10/18/2024 9:17 AM EDT) Influenza B Negative Negative, Indeterminate [facility] Swab 10/18/2024 9:17 AM EDT us Gabe Cunha MD POINT OF CARE TEST ENTER/EDIT OR DERABLES Final Result Performing Organization Address [facility] Co de Phone Number [facility] [address] [place] [phone] * Influenza A (ID NOW Rapid Molecular) (10/18/2024 9:17 AM EDT) Pathologist [facility] Influenza A Negative Negative, Indeterminate [facility] Swab 10/18/2024 9:17 AM EDT us Gabe Cunha MD POINT OF CARE TEST ENTER/EDIT OR DERABLES Final Result Performing Organization Address [facility] Co de Phone Number [facility] [address] [place] [phone] * POCT Rapid COVID Ag (10/18/2024 9:17 AM EDT) Rapid COVID Ag Negative [facility] Swab 10/18/2024 9:17 AM EDT us Gabe Cunha MD POINT OF CARE TEST ENTER/EDIT OR DERABLES Final Result Performing Organization Address [facility] Co de Phone Number [facility] [address] [place] [address] [phone] * POCT rapid strep A manually resulted (10/18/2024 9:17 AM EDT) Rapid Strep A Screen Negative Negative, None Detected [facility] Swab 10/18/2024 9:17 AM EDT Gabe Cunha MD POINT OF CARE TEST ENTER/EDIT OR DERABLES Final Result [facility] [address] [place] [phone] * BI Mammogram Screening Tomosynthesis Bilateral (04/20/2024 3:25 PM EDT) Anatomical Region Laterality Modality Breast Bilateral Mammography 04/20/2024 3:25 PM EDT Narrative 04/29/2024 12:17 PM EDT [facility] [address] [place] [address] Mammography Report Signed Patient: Catalina Wood MR#: [id number] : 1985 Acct:[id number] Age/Sex: 38 / F ADM Date: 04/20/24 Loc: HO.MAMMO Attending Dr: Roberta Acuna MD Ordering Physician: Roberta Burroughs MD Re sults: 1Negative Date of Service: 04/20/24 Follow Up: 1 Year From Orig ina Mammogram Procedure(s): MM tomosynthesis screening BI Accession Number(s): [id number] cc: Roberta Burroughs MD EXAMINATION: MM SCREENING [...] 04/29/24 1214 DD/ 1525 TD/TT: 04/20/24 1538 Content Production Specialist: Procedure Note Donotuseinterpreter, Image - 04/29/2024 [facility] [address] [place] [address] Mammography Report Signed Patient: Catalina Wood#: [id number] : 1985Acct:[id number] Age/Sex: 38 / FADM Date: 04/20/24 Loc: HO.MAMMO Attending Dr: Roberta Acuna MD Ordering Physician: Roberta Burroughs sults: 1Negative Date of Service: 04/20/24Follow Up: 1 Year From Orig ina Mammogram Procedure(s): MM tomosynthesis screening BI Accession Number(s): [id number] cc: Roberta Burroughs MD EXAMINATION: MM SCREENING [...] 04/29/24 1214 DD/ 1525 TD/TT: 04/20/24 1538 Content Production Specialist: us Roberta Acuna MD IMG BI PROCEDURES Edited Result - Final * Hepatitis C Antibody with Reflex to HCV, RNA, Quantitative, Real-Time PCR (12/10/2023 11:55 AM EDT) Hepatitis C Antibody Nonreactive Nonreactive [facility] Comment:Antibodies to HCV no t detected; does not exclude early acuteHCV infection. Blood Venous blood specimen / Unknown 12/10/2023 11:55 AM EDT 12/10/2023 1:25 PM EDT us Roberta Acuna MD LAB BLOOD ORDERAB LES Final Result [facility] [address] [place] [address] [phone] * HIV-1/2 Antigen and Antibodies, Fourth Generation, with Reflexes (12/10/2023 11:55 AM EDT) HIV AB/AG Nonreactive Nonreactive [facility] Comment:HIV-1 p24 Ag and/or HIV-1/HIV-2 Ab not detected.A test result that is nonreactive does not exclude thepossibility of exposure to or infection with HIV-1 and/orHIV-2. Nonreactive results in this assay for individualswith prior exposure to HIV-1 and/or HIV-2 may be due toantigen and antibody levels that are below the limit ofdetection of this assay.The [employer] HIV Ag/Ab Combo assay result andsupplemental assay results should be interpreted inconjunction with the patient's clinical presentation,history and other laboratory results. If the results areinconsistent with clinical evidence, additional testing issuggested to confirm the result. Blood Venous blood specimen / Unknown 12/10/2023 11:55 AM EDT 12/10/2023 1:25 PM EDT Roberta Acuna MD LAB BLOOD ORDERAB LES Final Result [facility] [address] [place] [phone] * (ABNORMAL) Lipid Panel, Standard (12/10/2023 11:53 AM EDT) Triglycerides 49 <150 mg/dL [facility] Comment:Desirable Triglyceri de: less than 150 mg/dLBorderline High Triglyceride 150-199 mg/dLHigh Triglyceride: 200-499 mg/dLVery High Triglyceride: greater than or equal to 5OO mg/dL Cholesterol 163 <200 mg/dL [facility] Comment:Desirable Cholestero l: less than 200 mg/dLBorderline High Cholesterol: 200-239 mg/dLHigh Cholesterol: greater than 239 mg/dL LDL Cholesterol Calculated 100(H) <100 mg/dL [facility] Comment:Desirable LDL: less than 100 mg/dLNear Optimal/Above Optimal LDL: 110- 129 mg/dLBorderline High LDL: 130-159 mg/dLHigh LDL: 160-189 mg/dLVery High LDL: greater than or equal to 190 mg/dL HDL Cholesterol 54 >40 mg/dL [facility] Comment:Desirable HDL: great er than 40 mg/dL Note: This HDL assay may give artificially low results in patients with liver disease. Blood Venous blood specimen / Unknown 12/10/2023 11:53 AM EDT 12/10/2023 1:25 PM EDT Roberta Acuna MD LAB BLOOD ORDERAB LES Final Result [facility] [address] [place] [phone] * Pap Smear (01/12/2023 9:41 AM EST) 01/12/2023 9:41 AM EST 01/13/2023 12:30 PM EST Narrative [facility] - 01/18/2023 1:41 PM EST ----- ------- Name: Catalina Wood Age/Sex: 37/F : 1985 Unit#: [id number] Attend Dr: Sparkle Maldonado CNM Re01/12/23 Status: [facility] Location: [facility] Disch: ----- ------- SPEC : [id number] RECD: 01/13/231230 STATUS: ROSSANA GARIBAY NUM: [id number] BALJINDER: 01/12/[address] [facility] [address]: Sparkle Maldonado CNM ENTERED: 01/13/23-4727 SP TYPE: Pap Smr OTHR DR: Vida Van FLAME CUTTING MACHINE OPERATOR HELPER ORDERED: Pap Smear Interpretation Satisfactory for evaluation. Mild inflammation. Hyperkeratosis noted. Negative for intraepithelial lesion or malignancy. HPV mRNA E6/E7: NOT DETECTED This assay detects E6/E7 viral messenger RNA (mRNA) from 14 high-risk HPV types (16, 18, 31, 33, 35, 39, 45, 51, 52, 56, 58, 59, 66, 68) HPV testing performed by [facility], [place], [place]. See reference laboratory portion of the EMR for entire report. Clinical Information LMP: 12/13/22 Previous PAP test: 2018, WNL Material Received ThinPrep-Cervical Copies To: Sparkle Maldonado [address] [place], [place] [phone] Vida Van FLAME CUTTING MACHINE OPERATOR HELPER [address] [place] [address] ----- ------- Signed (signature on file) ERICKA Roa (ASCP) 01/18/23 1341 ----- ------- END OF REPORT us Generic External Data Provider LAB CYTOLOGY WILLIAM ELLIOTT Final Result [facility] [address] [place], [place] [phone] from Last 3 Months or Most Recently Relevant to Health Maintenance Insurance [facility] Care Teams Garbage Pick Up Man Relationship Specialty Start Date End Date Roberta Burroughs MD [address] [place] [address] PCP - General Internal Medicine 08/05/22 Gonsalo Unger FNP [address] [place] [address] Nurse Practitioner Family Medicine 12/28/22
--- OUTSIDE RECORDS SUMMARY | 2024-12-05 16:07 | XMS_ITS | Encounter Summary ---
Author Organization [employer] Address [address] [place] [address] [address] [place] [address] Care Team Providers Care Trouble Tracer Name Role Phone Roberta Burroughs MD Primary Care Pro vider Gonsalo Unger Unavailable Unavailable Reason for Visit * Reason Comments Med Refill Encounter Details Date Type Department Care Team (Late st Contact Info) Description 10/31/2024 Refill [facility] [address] [place] [phone] Roberta Burroughs MD [address] [place], [place] [phone] Class 3 severe obesity due to excess [...] housing situation today? I have robby ashli 10/12/[address] you li [...] (BMI) of 40.0 to 44.9 in adult (HCC) documented in this encounter Additional Health Concerns Assessment Noted Time PHQ-9 Depression Total Score: 16 025 3:33 PM EDT documented as of this encounter Care Teams Trouble Tracer Relationship Specialty Start Date End Date Roberta Burruoghs MD [address] [place] [address] PCP - General Internal Medicine 08/05/22 Gonsalo Unger FNP [address] [place] [address] Nurse Practitioner Family Medicine 12/28/22 documented as of this encounter
--- OUTSIDE RECORDS SUMMARY | 2024-12-05 16:07 | XMS_ITS | Encounter Summary ---
Author Organization [employer] Address [address] [place] [address] 7t [place] [address] Care Team Providers Care Outbound Sales Specialist Name Role Phone Roberta Burroughs MD Primary Care Pro vider Gonsalo Unger Unavailable Unavailable Reason for Visit * Reason Comments Med Refill Encounter Details Date Type Department Care Team (Late st Contact Info) Description 10/18/2024 Refill [facility] [address] [place] [address] [phone] Roberta Burroughs MD [address] [place], [place] [phone] Class 3 severe obesity due to excess [...] AM EDT documented as of this encounter Functional Status * Over the past 2 weeks, how often have you been bothered by any of the following problems? Question Answer Date of Assessment Author Patient Health Questionnaire -2 Score 5 10/19/2024 3:33 PM EDT Мария Bello [place] * Little interest or pleasure in doing things Answer Date of Assessment Author Nearly every day 10/19/2024 3:33 PM EDT Мария Bello [place] * Feeling down, depressed, or hopeless Answer Date of Assessment Author More than half the days 10/19/2024 3:33 PM EDT Мария Armenta [place] * Trouble falling or staying asleep, or sleeping too much Answer Date of Assessment Author Nearly every day 10/19/2024 3:33 PM EDT Мария Bello [place] * Feeling tired or having little energy Answer Date of Assessment Author Nearly every day 10/19/2024 3:33 PM EDT Мария Bello [place] * Poor appetite or overeating Answer Date of Assessment Author Not at all 10/19/2024 3:33 PM EDT Colette Bello [place] * Feeling bad about yourself - or that you are a failure or have let yourself or your family down Answer Date of Assessment Author More than half the days 10/19/2024 3:33 PM EDT Мария Armenta [place] * Trouble concentrating on things, such as reading the newspaper or watching television Answer Date of Assessment Author Not at all 10/19/2024 3:33 PM EDT Colette Bello [place] * Moving or speaking so slowly that other people could have noticed? Or the opposite - being so fidgety or restless that you have been moving around a lot more than usual. Answer Date of Assessment Author Nearly every day 10/19/2024 3:33 PM EDT Мария Bello [place] * Thoughts that you would be better off or hurting yourself in some way Answer Date of Assessment Author Not at all 10/19/2024 3:33 PM EDT Colette Bello MA * Patient Health Questionnaire-9 Score Answer Date of Assessment Author 16 10/19/2024 3:33 PM EDT Colette Bello [place] * How difficult have these problems made it for you to do your work, take care of things at home, or get along with other people? Answer Date of Assessment Author Extremely difficult 10/19/2024 3:33 PM EDT Мария Robertson [place] * Over the last 2 weeks, how often have you been bothered by any of the following problems? Question Answer Date of Assessment Author Feeling nervous, anxious, or on edge 2 10/19/2024 3:33 PM EDT Мария Bello [place] Not being able to stop or co ntrol worrying 2 10/19/2024 3:33 PM EDT Мария Bello [place] Worrying too much about diff erent things 2 10/19/2024 3:33 PM EDT Мария Bello [place] Trouble relaxing 2 10/19/2024 3:33 PM EDT Мария Armenta [place] Being so restless that it is hard to sit still 0 10/19/2024 3:33 PM RANDYT Мария Bello [place] Becoming easily annoyed or irritable 3 10/19/2024 3:33 PM EDT Мария Bello [place] Feeling afraid as if somethi ng awful might happen 0 10/19/2024 3:33 PM EDT Мария Bello MA WEST-7 Total Score 11 10/19/2024 3:33 PM EDT Мария Bello [place] documented as of this encounter Miscellaneous Notes * Telephone Encounter - Tasia Patiño MA - 10/18/2024 4:05 PM EDT Chart Prep Labs: done Images: done Referrals:cardio pend, gastro pending Vaccines due: Covid, Flu, PCV20, Hep A, and HPV Screenings: not applicable Overdue care gaps: PHQ-9 documented in this encounter Plan of Treatment [...] documented as of this encounter Care Teams Outbound Sales Specialist Relationship Specialty Start Date End Date Roberta Burroughs MD [address] [place] [address] PCP - General Internal Medicine 08/05/22 Gonsalo Unger FNP [address] [place] [address] Nurse Practitioner Family Medicine 12/28/22 documented as of this encounter
--- OUTSIDE RECORDS SUMMARY | 2024-12-05 16:07 | XMS_ITS | Encounter Summary ---
Author Organization [employer] Address [address] [place] [address] 7 [place] [address] Care Team Providers Care Motor Coach Bus Driver Name Role Phone Roberta Burroughs MD Primary Care Pro vider Gonsalo Unger Unavailable Unavailable Encounter Details Date Type Department Care Team (Late st Contact Info) Description 10/31/2024 Refill [facility] [address] [place], [place] [phone] Roberta Burroughs MD [address] [place] [address] Class 3 severe obesity due to excess [...] Telephone Encounter - Roberta Acuna MD - 10/31/2024 2:41 PM EDT New dose sent documented in this encounter Plan [...] documented as of this encounter Care Teams Motor Coach Bus Driver Relationship Specialty Start Date End Date Roberta Burroughs MD [address] [place] [address] PCP - General Internal Medicine 08/05/22 Gonsalo Unger FNP [address] [place] [address] Nurse Practitioner Family Medicine 12/28/22 documented as of this encounter
--- OUTSIDE RECORDS SUMMARY | 2024-12-05 16:08 | XMS_ITS | Encounter Summary ---
Author Organization [employer] Address [address] 7t [place] [address] Care Team Providers Care Cartridge Assembling Machine Adjuster Name Role Phone Roberta Burroughs MD Primary Care Pro vider Gonsalo Unger Unavailable Unavailable Reason for Visit * Reason Comments Med Refill Encounter Details Date Type Department Care Team (Late st Contact Info) Description 11/10/2022 Refill [facility] [address] [place] [address] Vida Van FNP Seasonal allergic rhinitis due [...] documented as of this encounter Care Teams Cartridge Assembling Machine Adjuster Relationship Specialty Start Date End Date Roberta Burroughs MD [address] [place] [address] PCP - General Internal Medicine 08/05/22 Gonsalo Unger FNP [address] [place] [address] Nurse Practitioner Family Medicine 12/28/22 documented as of this encounter
--- OUTSIDE RECORDS SUMMARY | 2024-12-05 16:08 | XMS_ITS | Clinical Summary ---
Author Organization [facility] ity Address [address] [place] [address] Care Team Providers Care Fruit Or Nut Picker Name Role Phone Gonsalo Unger NP Primary Care Provider Social History Tobacco Use Types Packs/Day Years [...] Cervical Cancer Screening: P ap Smear 10/24/2004 HPV Vaccines (1 - 3-dose SCD M series) 10/24/2010 Depression Screening 02/09/2024 COVID-19 Vaccine ( - 2023-2 5 season) 2024 Influenza Vaccine (#1) 2024 RSV Immunization Adult Patie nts (1 - 1-dose 75+ series) 10/24/2058 HIB Vaccines Aged Out No longer eligi [...] age to complete this topic Care Teams Fruit Or Nut Picker Relationship Specialty Start Date End Date Gonsalo Unger NP [address] [place] [address] PCP - General Internal Medicine 06/24/16
--- OUTSIDE RECORDS SUMMARY | 2024-12-05 16:08 | XMS_ITS | Encounter Summary ---
Author Organization [employer] Address [address] [facility] 7t [place] [address] Care Team Providers Care Data Architect Manager Name Role Phone Vida Van HEALTH AID Primary Care Provider Roberta Ritchie MD Primary Care Pro vider Gonsalo Unger HEALTH AID Unavailable Unavailable Encounter Details Date Type Department Care Team (Late st Contact Info) Description 01/13/2022 Abstract [facility] [address] [place], [place] [phone] Ashley Badillo RN [address] [place] [address] Social History Tobacco Use Types Packs/Day Years [...] documented as of this encounter Care Teams Data Architect Manager Relationship Specialty Start Date End Date Vida Van FNP PCP - General Family Medicine 10/06/21 08/04/22 Roberta Burroughs MD [address] [place], [place] [phone] PCP - General Internal Medicine 08/05/22 Gonsalo Unger FNP [address] [place] [address] Nurse Practitioner Family Medicine 12/28/22 documented as of this encounter
--- OUTSIDE RECORDS SUMMARY | 2024-12-05 16:08 | XMS_ITS | Encounter Summary ---
Author Organization [employer] Address [address] [place] [address] Care Team Providers Care Public Health Teacher Name Role Phone Roberta Burroughs MD Primary Care Pro vider Gonsalo Unger Unavailable Unavailable Reason for Visit * Reason Comments Med Refill Encounter Details Date Type Department Care Team (Late st Contact Info) Description 11/10/2022 Refill [facility] [address] [place] [address] Gonsalo Unger FNP Anxious depression Social History [...] t he electric, gas, oil or water [employer] threatened to shut off services in your [...] documented as of this encounter Care Teams Public Health Teacher Relationship Specialty Start Date End Date Roberta Burroughs MD [address] [place] [address] PCP - General Internal Medicine 08/05/22 Gonsalo Unger FNP [address] [place] [address] Nurse Practitioner Family Medicine 12/28/22 documented as of this encounter
--- OUTSIDE RECORDS SUMMARY | 2024-12-05 16:08 | XMS_ITS | Encounter Summary ---
Author Organization [employer] Address [address] [place] [address] 7 [place] [address] Care Team Providers Care Washcloth Folder Name Role Phone Roberta Burroughs MD Primary Care Pro vider Gonsalo Unger Unavailable Unavailable Reason for Visit * Reason Comments Med Refill Encounter Details Date Type Department Care Team (Late st Contact Info) Description 08/29/2024 Refill [facility] [address] [place], [place] [phone] Roberta Burroughs MD [address] [place], [place] [phone] Class 3 severe obesity due to excess [...] documented as of this encounter Care Teams Washcloth Folder Relationship Specialty Start Date End Date Roberta Burroughs MD [address] [place] [address] PCP - General Internal Medicine 08/05/22 Gonsalo Unger FNP [address] [place] [address] Nurse Practitioner Family Medicine 12/28/22 documented as of this encounter
--- OUTSIDE RECORDS SUMMARY | 2024-12-05 16:08 | XMS_ITS | Encounter Summary ---
Author Organization [employer] Address [address] [place] [address] 7 [place] [address] Care Team Providers Care Staff Forester Name Role Phone Roberta Burroughs MD Primary Care Pro vider Gonsalo Unger Unavailable Unavailable Reason for Visit * Reason Onset Date Comments Prior Authorization 08/02/2024 Encounter Details Date Type Department Care Team ([facility] st Contact Info) Description 08/02/2024 Telephone [facility] [address] [place] [address] Roberta Burroughs MD [address] [place] [address] Prior Authorization Social History Tobacco Use Types [...] documented as of this encounter Care Teams Staff Forester Relationship Specialty Start Date End Date Roberta Burroughs MD [address] [place] [address] PCP - General Internal Medicine 08/05/22 Gonsalo Unger FNP [address] [place] [address] Nurse Practitioner Family Medicine 12/28/22 documented as of this encounter
--- OUTSIDE RECORDS SUMMARY | 2024-12-05 16:08 | XMS_ITS | Encounter Summary ---
Author Organization [employer] Address [address] [facility] 7t [place] [address] Care Team Providers Care Duplicating Machine Mechanic Name Role Phone Vida Vna Primary Care Provider Roberta Ritchie MD Primary Care Pro vider Gonsalo Unger Unavailable Unavailable Encounter Details Date Type Department Care Team ([facility] st Contact Info) Description 02/04/2022 Telephone [facility] MED[facility] [address] [place] [address] Vida Van FNP Social History Tobacco Use [...] documented as of this encounter Care Teams Duplicating Machine Mechanic Relationship Specialty Start Date End Date Vida Van FNP PCP - General Family Medicine 10/06/21 08/04/22 Roberta Burroughs MD [address] [place], [place] [phone] PCP - General Internal Medicine 08/05/22 Gonsalo Unger FNP [address] [place] [address] Nurse Practitioner Family Medicine 12/28/22 documented as of this encounter
--- OUTSIDE RECORDS SUMMARY | 2024-12-05 16:08 | XMS_ITS | Encounter Summary ---
Author Organization [employer] Address [address] [facility] 7t [place] [address] Care Team Providers Care Ship Surveyor Name Role Phone Roberta Burroughs MD Primary Care Pro vider Gonsalo Unger Unavailable Unavailable Reason for Visit * Reason Comments Med Refill Encounter Details Date Type Department Care Team (Late st Contact Info) Description 06/07/2024 Refill [facility] [address] [place], [place] [phone] Karina Eaton MD [address] [place] [address] Social History Tobacco Use Types Packs/Day Years [...] documented as of this encounter Care Teams Ship Surveyor Relationship Specialty Start Date End Date Roberta Burroughs MD [address] [place] [address] PCP - General Internal Medicine 08/05/22 Gonsalo Unger FNP [address] [place] [address] Nurse Practitioner Family Medicine 12/28/22 documented as of this encounter
--- OUTSIDE RECORDS SUMMARY | 2024-12-05 16:08 | XMS_ITS | Encounter Summary ---
Author Organization [employer] Address [address] [facility] 7t [place] [address] Care Team Providers Care Real Estate Site Analyst Name Role Phone Roberta Burroughs MD Primary Care Pro vider Gonsalo Unger Unavailable Unavailable Reason for Visit * Reason Comments Med Refill Encounter Details Date Type Department Care Team (Late st Contact Info) Description 08/11/[address] [facility] MED[facility] [address] [place] [address] Gonsalo Unger FNP Anxious depression Social History [...] documented as of this encounter Care Teams Real Estate Site Analyst Relationship Specialty Start Date End Date Roberta Burroughs MD [address] [place] [address] PCP - General Internal Medicine 08/05/22 Gonsalo Unger FNP [address] [place] [address] Nurse Practitioner Family Medicine 12/28/22 documented as of this encounter
--- OUTSIDE RECORDS SUMMARY | 2024-12-05 16:08 | XMS_ITS | Encounter Summary ---
Author Organization [employer] Address [address] [facility] 7t [place] [address] Care Team Providers Care System Support Developer Name Role Phone Roberta Burroughs MD Primary Care Pro vider Gonsalo Unger Unavailable Unavailable Reason for Visit * Reason Comments Med Refill Encounter Details Date Type Department Care Team (Late st Contact Info) Description 09/18/[address] [facility] [address] [place], [place] [phone] Name, MD Derek [address] [place] [address] Cobalamin deficiency Social History Tobacco Use Types [...] documented as of this encounter Care Teams System Support Developer Relationship Specialty Start Date End Date Roberta Burroughs MD [address] [place] [address] PCP - General Internal Medicine 08/05/22 Gonsalo Unger FNP [address] [place] [address] Nurse Practitioner Family Medicine 12/28/22 documented as of this encounter
== END 2024-12-05 13:24 | disposition home or self-care (01) ==
LOC: HO.HCS 12:47
PROVIDERS: Visit Provider Internal Medicine Cardiovascular Disease
DX: R06.09 Other forms of dyspnea (principal)
CPT/HCPCS: 93010; 99214

== ENCOUNTER → 2024-12-05 12:47 | Outpatient (BNVA) | payer MEDICAID, SELFPAY | PROVIDERS: Visit Provider Internal Medicine Cardiovascular Disease | DX: R06.09 Other forms of dyspnea (principal); R94.31 Abnormal electrocardiogram [ECG] [EKG] | CPT/HCPCS: 93005; 99212 ==

== ENCOUNTER 2024-12-12 10:30 | Outpatient (REF) | payer MEDICAID, SELFPAY ==
--- NOTE | ~2024-12-12 | US_ITS ---
EXAMINATION: US ABDOMEN LIMITED CLINICAL INFORMATION: Liver lesions COMPARISON: Previous abdominal ultrasound October 2023. An abdominal MRI December 2023 TECHNIQUE: Real-time imaging of the right upper quadrant abdominal viscera. FINDINGS: PANCREAS: Visualized portions are unremarkable. LIVER: The liver is normal in size. The liver contour is normal. Parenchymal echogenicity is normal. Scattered very bright echogenic foci throughout the liver, largest measuring 1.1 x 1.2 x 1 cm and 0.8 x 0.6 x 1 cm in the right lobe, question representing calcifications. There is no intrahepatic biliary duct dilatation seen. GALLBLADDER: The gallbladder is physiologically distended without evidence of stones, sludge, polyps, wall thickening or pericholecystic fluid. COMMON BILE DUCT: Normal in caliber measuring 0.5 cm in diameter. RIGHT KIDNEY: No hydronephrosis. 1.1 cm lesion in the anterior mid right kidney. This has a thick echogenic wall with twinkle artifact and hypoechoic or anechoic center. When compared with prior MRI exam appearance is questionable for a complex cyst with wall calcification. This was not appreciated on prior ultrasound. The kidney measures 11.3 cm in maximum dimension. FREE FLUID: None. US/US abdomen limited IMPRESSION: Probable multiple calcifications in the liver. This is similar to prior ultrasound. 1.1 cm echogenic lesion with lucent center in the anterior right kidney. When compared with prior MRI this may represent a complex cyst with wall calcification. This was not seen on prior ultrasound. This could be better evaluated with CT or MRI of the kidneys if clinically warranted. Electronically signed by: Leeann Finn MD 12/12/2024 11:35 AM [facility] [place]
--- OUTSIDE RECORDS SUMMARY | 2024-12-12 12:19 | XMS_ITS | Encounter Summary ---
Author Organization [employer] Address [address] [place] [address] 7t [place] [address] Care Team Providers Care Data Processing Equipment Repairer Name Role Phone Roberta Burroughs MD Primary Care Pro vider Gonsalo Unger Unavailable Unavailable Reason for Visit * Reason Comments Med Refill Encounter Details Date Type Department Care Team (Late st Contact Info) Description 10/18/2024 Refill [facility] [address] [place] [address] [phone] Roberta Burroughs MD [address] [place], [place] [phone] Class 3 severe obesity due to excess [...] as of this encounter Care Teams Data Processing Equipment Repairer Relationship Specialty Start Date End Date Roberta Burroughs MD [address] [place] [address] PCP - General Internal Medicine 08/05/22 Gonsalo Unger FNP [address] [place] [address] Nurse Practitioner Family Medicine 12/28/22 documented as of this encounter
--- OUTSIDE RECORDS SUMMARY | 2024-12-12 12:19 | XMS_ITS | Encounter Summary ---
Author Organization [employer] Address [address] [place] [address] 7 [place] [address] Care Team Providers Care Class A Regional Truck Driver Name Role Phone Roberta Burroughs MD Primary Care Pro vider Gonsalo Unger Unavailable Unavailable Encounter Details Date Type Department Care Team (Late st Contact Info) Description 10/31/2024 Refill [facility] [address] [place], [place] [phone] Roberta Burroughs MD [address] [place] [address] Class 3 severe obesity due to excess [...] documented as of this encounter Care Teams Class A Regional Truck Driver Relationship Specialty Start Date End Date Roberta Burroughs MD [address] [place] [address] PCP - General Internal Medicine 08/05/22 Gonsalo Unger FNP [address] [place] [address] Nurse Practitioner Family Medicine 12/28/22 documented as of this encounter
--- OUTSIDE RECORDS SUMMARY | 2024-12-12 12:19 | XMS_ITS | Clinical Summary ---
Author Organization [employer] Address [address] [facility] [address] [place] [address] Care Team Providers Care Sales And Marketing Analyst Name Role Phone Roberat Burroughs MD Primary Care Pro vider Gonsalo [...] g 01/04/20 24 025 Active sodium chloride (Morrill) 0.65 % nasal spray Administer 1 spray [...] intake with prescriber at her outpatient agency, [facility]. Meanwhile, will continue Wellbutrin XL 300 [...] Hypothyroidism 12/24/2014 Overview (08/05/2022): Care managed by [facility] Mathieu, Dr. Buck Last visit around 07/15/22 [...] a hx of recurrent sinusitis. 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 Plan: Continue Zyrtec. Start Augmentin BID x 7 days F/u with new redevelopment specialist Environmental and seasonal allergies 04/02/2022 10/31/2022 Overview (08/05/2022): Care managed by [employer] Receives allergy shots Assessment & Plan (08/05/2022 [...] been receiveing immunotherapy in the past unfortunatelly redevelopment specialist retired and she was unable to contine. Her nasal congestion is preventing her from sleeping. On exam she has significant turbinate erythema. She is already using otc Afrin and nasal steroids with no good results as well as daily antihistaminics Plan: Medrol dose pack while she sees her redevelopment specialist again to give her relief Exposure [...] Type Department Care Team Description 10/31/2024 Telephone [facility] [address] [place] [phone] Roberta Burroughs MD Refill Issues 10/31/2024 Orders Only [address] [address] Roberta Burroughs MD 10/31/[address] [address] Roberta Burroughs MD Class 3 severe obesity due to excess calories with serious comorbidity and body mass index (BMI) of 40.0 to 44.9 in adult 10/31/2024 Refill [facility] [address] [place] [address] Roberta Burroughs MD Class 3 severe obesity due to excess calories with serious comorbidity and body mass index (BMI) of 40.0 to 44.9 in adult 10/19/2024 2:30 PM EDT Office Visit [address] [address] Roberta Burroughs MD Annual physical exam (Primary [...] Travel 10/18/2024 9:00 AM EDT Office Visit [facility] [address] [place] [address] Gabe Cunha MD Non-recurrent acute suppurative otitis media of right ear without spontaneous rupture of tympanic membrane (Primary Dx); Acute otitis externa of right ear, unspecified type; Rectal bleeding; Excessive gas; Viral URI; Concussion without loss of consciousness, subsequent encounter; Mild persistent asthma without complication 10/18/2024 Telephone [facility] [address] [place] [address] Roberta Burroughs MD Prior Authorization 10/18/2024 Refill [facility] [address] [place] [phone] Roberta Burroughs MD Class 3 severe obesity due to excess calories with serious comorbidity and body mass index (BMI) of 40.0 to 44.9 in adult 10/18/2024 Travel 10/12/2024 Patient Outreach [facility] [address] [place] [address] Roberta Burroughs MD Pre-visit Planning (SDOH screening negative and tobacco screening negative) 10/10/2024 Travel 09/20/2024 Refill [facility] [address] [place] [address] Roberta Burroughs MD Class 3 severe obesity due to excess calories with serious comorbidity and body mass index (BMI) of 40.0 to 44.9 in adult 09/19/2024 Refill [facility] [address] [place], [place] [phone] Karina Eaton MD Seasonal allergic rhinitis due to pollen 09/18/2024 Refill [facility] [address] [place] [address] Derek Trujillo MD Cobalamin deficiency 09/18/2024 Refill [facility] [address] [place], [place] [phone] Roberta Burroughs MD Essential hypertension; Seasonal allergic [...] the past 12 months, has t he [employer] gas, oil or water company threatened to [...] Procedure Name Priority Date/Time Associated Diagnosis Comments US ABDOMEN LIMITED Routine 12/12/2024 10 :41 AM EST Hepatic lesion POCT INFLUENZA B (ID NOW RAPID MOLECULAR) Routine 10/18/2024 9:17 AM EDT Viral URI POCT INFLUENZA A (ID NOW RAPID MOLECULAR) Routine 10/18/2024 9:17 AM EDT Viral URI POCT RAPID STREP A Routine 10/18/2024 9 :17 AM EDT Viral URI POCT RAPID COVID [...] Recently Relevant to Health Maintenance Results * US Abdomen Limited (12/12/2024 10:41 AM EST) Anatomical Region Laterality Modality Abdomen Ultrasound 12/12/2024 10:4 1 AM EST Narrative 12/12/2024 11:38 AM EST [place] [address] Ultrasound Report Signed Patient: Catalina Wood MR#: [id number] : 1985 Acct:[id number] Age/Sex: 39 / F ADM Date: 12/12/24 Loc: HO.US Attending Dr: Roberta Acuna MD Ordering Physician: Roberta Burroughs MD Date of Service: 12/12/24 Procedure(s): US abdomen limited Accession Number(s): [id number] cc: Roberta Burroughs MD Reason for Exam: RUQ Abd US for known liver lesion in previous abd MRI EXAMINATION: US ABDOMEN LIMITED CLINICAL INFORMATION: Liver lesions COMPARISON: Previous abdominal ultrasound October 2023. An abdominal MRI December 2023 TECHNIQUE: Real-time imaging of the right upper quadrant abdominal viscera. FINDINGS: PANCREAS: Visualized portions are unremarkable. LIVER: The liver is normal in size. The liver contour is normal. Parenchymal echogenicity is normal. Scattered very bright echogenic foci throughout the liver, largest measuring 1.1 x 1.2 x 1 cm and 0.8 x 0.6 x 1 cm in the right lobe, question representing calcifications. There is no intrahepatic biliary duct dilatation seen. GALLBLADDER: The gallbladder is physiologically distended without evidence of stones, sludge, polyps, wall thickening or pericholecystic fluid. COMMON BILE DUCT: Normal in caliber measuring 0.5 cm in diameter. RIGHT KIDNEY: No hydronephrosis. 1.1 cm lesion in the anterior mid right kidney. This has a thick echogenic wall with twinkle artifact and hypoechoic or anechoic center. When compared with prior MRI exam appearance is questionable for a complex cyst with wall calcification. This was not appreciated on prior ultrasound. The kidney measures 11.3 cm in maximum dimension. FREE FLUID: None. US/US abdomen limited IMPRESSION: Probable multiple calcifications in the liver. This is similar to prior ultrasound. 1.1 cm echogenic lesion with lucent center in the anterior right kidney. When compared with prior MRI this may represent a complex cyst with wall calcification. This was not seen on prior ultrasound. This could be better evaluated with CT or MRI of the kidneys if clinically warranted. Electronically signed by: Leeann Finn MD 12/12/2024 11:35 AM EST Dictated By: Leeann Finn MD Signed By: <Electronically signed by Leeann Finn MD in [place]> 12/12/24 1135 DD/ 1041 TD/TT: 12/12/24 1102 Cap Blocker: BRIANNE Procedure Note Donotuseinterpreter, Image - 12/12/2024 [place] [address] Ultrasound Report Signed Patient: Catalina Wood#: [id number] : 1985Acct:[id number] Age/Sex: 39 / FADM Date: 12/12/24 Loc: HO.US Attending Dr: Roberta Acuna MD Ordering Physician: Roberta Burroughs MD Date of Service: 12/12/24 Procedure(s): US abdomen limited Accession Number(s): [id number] cc: Roberta Burroughs MD Reason for Exam: RUQ Abd US for known liver lesion in previous abd MRI EXAMINATION: US ABDOMEN LIMITED CLINICAL INFORMATION: Liver lesions COMPARISON: Previous abdominal ultrasound October 2023. An abdominal MRI December 2023 TECHNIQUE: Real-time imaging of the right upper quadrant abdominal viscera. FINDINGS: PANCREAS: Visualized portions are unremarkable. LIVER: The liver is normal in size. The liver contour is normal. Parenchymal echogenicity is normal. Scattered very bright echogenic foci throughout the liver, largest measuring 1.1 x 1.2 x 1 cm and 0.8 x 0.6 x 1 cm in the right lobe, question representing calcifications. There is no intrahepatic biliary duct dilatation seen. GALLBLADDER: The gallbladder is physiologically distended without evidence of stones, sludge, polyps, wall thickening or pericholecystic fluid. COMMON BILE DUCT: Normal in caliber measuring 0.5 cm in diameter. RIGHT KIDNEY: No hydronephrosis. 1.1 cm lesion in the anterior mid right kidney. This has a thick echogenic wall with twinkle artifact and hypoechoic or anechoic center. When compared with prior MRI exam appearance is questionable for a complex cyst with wall calcification. This was not appreciated on prior ultrasound. The kidney measures 11.3 cm in maximum dimension. FREE FLUID: None. US/US abdomen limited IMPRESSION: Probable multiple calcifications in the liver. This is similar to prior ultrasound. 1.1 cm echogenic lesion with lucent center in the anterior right kidney. When compared with prior MRI this may represent a complex cyst with wall calcification. This was not seen on prior ultrasound. This could be better evaluated with CT or MRI of the kidneys if clinically warranted. Electronically signed by: Leeann Finn MD 12/12/2024 11:35 AM EST Dictated By: Leeann Finn MD Signed By: <Electronically signed by Leeann Finn MD in [place]> 12/12/24 1135 DD/ 1041 TD/TT: 12/12/24 1102 Cap Blocker: BRIANNE us Roberta Acuna MD IMG US PROCEDURES Final Result * Influenza B (ID NOW Rapid Molecular) (10/18/2024 9:17 AM EDT) Influenza B Negative Negative, Indeterminate [facility] Swab 10/18/2024 9:17 AM EDT us Gabe Cunha MD POINT OF CARE TEST ENTER/EDIT OR DERABLES Final Result [facility] [address] [place] [phone] * Influenza A (ID NOW Rapid Molecular) (10/18/2024 9:17 AM EDT) Influenza A Negative Negative, Indeterminate [facility] Swab 10/18/2024 9:17 AM EDT us Gabe Cunha MD POINT OF CARE TEST ENTER/EDIT OR DERABLES Final Result Performing Organization Address [facility] Co de Phone Number [facility] [address] [place] [phone] * POCT Rapid COVID Ag (10/18/2024 9:17 AM EDT) Rapid COVID Ag Negative [facility] Swab 10/18/2024 9:17 AM EDT us Gabe Cunha MD POINT OF CARE TEST ENTER/EDIT OR DERABLES Final Result Performing Organization Address [facility] Co de Phone Number [facility] [address] [place] [phone] * POCT rapid strep A manually resulted (10/18/2024 9:17 AM EDT) Pathologist [facility] Rapid Strep A Screen Negative Negative, None Detected [facility] Swab 10/18/2024 9:17 AM EDT us Gabe Cunha MD POINT OF CARE TEST ENTER/EDIT OR DERABLES Final Result Performing Organization Address [facility] Co de Phone Number [facility] [address] [place] [phone] * BI Mammogram Screening Tomosynthesis Bilateral (04/20/2024 3:25 PM EDT) Anatomical Region Laterality Modality Breast Bilateral Mammography 04/20/2024 3:25 PM EDT Narrative 04/29/2024 12:17 PM EDT [address] [place] [address] Mammography Report Signed Patient: Catalina Wood MR#: [id number] : 1985 Acct:[id number] Age/Sex: 38 / F ADM Date: 04/20/24 Loc: HO.MAMMO Attending Dr: Roberta Acuna MD Ordering Physician: Roberta Burroughs MD Re sults: 1Negative Date of Service: 04/20/24 Follow Up: 1 Year From Orig inal Mammogram Procedure(s): MM tomosynthesis screening BI Accession Number(s): [id number] cc: Roberta Burroughs MD EXAMINATION: MM SCREENING [...] 04/29/24 1214 DD/ 1525 TD/TT: 04/20/24 1538 Cap Blocker: Procedure Note Donotuseinterpreter, Image - 04/29/2024 [facility] [address] [place] [address] [place] [address] Mammography Report Signed Patient: Catalina Wood#: [id number] : 1985Acct:[id number] Age/Sex: 38 / FADM Date: 04/20/24 Loc: HO.MAMMO Attending Dr: Roberta Acuna MD Ordering Physician: Roberta Burroughs sults: 1Negative Date of Service: 04/20/24Follow Up: 1 Year From Orig inal Mammogram Procedure(s): MM tomosynthesis screening BI Accession Number(s): [id number] cc: Roberta Burroughs MD EXAMINATION: MM SCREENING [...] 04/29/24 1214 DD/ 1525 TD/TT: 04/20/24 1538 Cap Blocker: Roberta Acuna MD IMG BI PROCEDURES Edited Result - Final * Hepatitis C Antibody with Reflex to HCV, RNA, Quantitative, Real-Time PCR (12/10/2023 11:55 AM EDT) Hepatitis C Antibody Nonreactive Nonreactive [facility] Comment:Antibodies to HCV no t detected; does not exclude early acuteHCV infection. Blood Venous blood specimen / Unknown 12/10/2023 11:55 AM EDT 12/10/2023 1:25 PM EDT Roberta Acuna MD LAB BLOOD ORDERAB LES Final Result Performing Organization Address City/[facility]/ZIP Co de Phone Number [facility] [address] [place] [phone] * HIV-1/2 Antigen and Antibodies, Fourth Generation, with Reflexes (12/10/2023 11:55 AM EDT) HIV AB/AG Nonreactive Nonreactive [facility] Comment:HIV-1 p24 Ag and/or HIV-1/HIV-2 Ab not detected.A test result that is nonreactive does not exclude thepossibility of exposure to or infection with HIV-1 and/orHIV-2. Nonreactive results in this assay for individualswith prior exposure to HIV-1 and/or HIV-2 may be due toantigen and antibody levels that are below the limit ofdetection of this assay.The [employer] HIV Ag/Ab Combo assay result andsupplemental assay [...] Organization Address City/[facility]/ZIP Co de Phone Number [facility] [address] [place] [phone] * (ABNORMAL) Lipid Panel, Standard (12/10/2023 11:53 AM EDT) Triglycerides 49 <150 mg/dL [facility] Comment:Desirable Triglyceri de: less than 150 mg/dLBorderline High Triglyceride 150-199 mg/dLHigh Triglyceride: 200-499 mg/dLVery High Triglyceride: greater than or equal to 5OO mg/dL Cholesterol 163 <200 mg/dL [facility] Comment:Desirable Cholestero l: less than 200 mg/dLBorderline High Cholesterol: 200-239 mg/dLHigh Cholesterol: greater than 239 mg/dL LDL Cholesterol Calculated 100(H) <100 mg/dL [facility] Comment:Desirable LDL: less than 100 mg/dLNear Optimal/Above Optimal LDL: 110- 129 mg/dLBorderline High LDL: 130-159 mg/dLHigh LDL: 160-189 mg/dLVery High LDL: greater than or equal to 190 mg/dL HDL Cholesterol 54 >40 mg/dL [facility] Comment:Desirable HDL: great er than 40 mg/dL Note: This HDL assay may give artificially low results in patients with liver disease. Blood Venous blood specimen / Unknown 12/10/2023 11:53 AM EDT 12/10/2023 1:25 PM EDT us Roberta Acuna MD LAB BLOOD ORDERAB LES Final Result [facility] [address] [place] [phone] * Pap Smear (01/12/2023 9:41 AM EST) 01/12/2023 9:41 AM EST 01/13/2023 12:30 PM EST Narrative [facility] - 01/18/2023 1:41 PM EST ----- ------- Name: Catalina Wood Age/Sex: 37/F : 1985 Unit#: [id number] Attend Dr: Sparkle Maldonado CNM Re01/12/23 Status: DEP REF Location: [facility] Disch: ----- ------- SPEC : [id number] RECD: 01/13/23-1230 STATUS: ROSSANA GARIBAY NUM: [id number] BALJINDER: 01/12/[address] [facility] [address]: Sparkle Maldonado CNM ENTERED: 01/13/23-1503 [...] 59, 66, 68) HPV testing performed by [email or web address], [place], [place]. See reference laboratory portion of the EMR for entire report. Clinical Information LMP: 12/13/22 Previous PAP test: 2018, WNL Material Received ThinPrep-Cervical Copies To: Sparkle Maldonado CNM [address] [place] [address] Dr. Hui [address] [place] [address] Vida Van [facility] [address] [place] [address] ----- ------- Signed (signature on file) ERICKA Roa ([facility]) 01/18/23 1341 ----- ------- END OF REPORT us Generic External Data Provider LAB CYTOLOGY DINAE LEXI Final Result [facility] [address] [place] [address] [phone] from Last 3 Months or Most Recently Relevant to Health Maintenance Insurance [facility] Care Teams Sales And Marketing Analyst Relationship Specialty Start Date End Date Roberta Burroughs MD [address] [place], [place] [phone] PCP - General Internal Medicine 08/05/22 Gonsalo Unger FNP [address] [place] [address] Nurse Practitioner Family Medicine 12/28/22
--- OUTSIDE RECORDS SUMMARY | 2024-12-12 12:20 | XMS_ITS | Encounter Summary ---
Author Organization [employer] Address [address] [facility] 7t [place] [address] Care Team Providers Care Bed Machine Operator Name Role Phone Roberta Burroughs MD Primary Care Pro vider Gonsalo Unger Unavailable Unavailable Reason for Visit * Reason Comments Med Refill Encounter Details Date Type Department Care Team (Late st Contact Info) Description 06/07/2024 Refill [facility] [address] [place], [place] [phone] Karina Eaton MD [address] [place] [address] Social History Tobacco Use Types Packs/Day Years [...] is your housing situation today? I have robyb sing 10/06/[address] you [...] documented as of this encounter Care Teams Bed Machine Operator Relationship Specialty Start Date End Date Roberta Burroughs MD [address] [place] [address] PCP - General Internal Medicine 08/05/22 Gonsalo Unger FNP [address] [place] [address] Nurse Practitioner Family Medicine 12/28/22 documented as of this encounter
--- OUTSIDE RECORDS SUMMARY | 2024-12-12 12:20 | XMS_ITS | Encounter Summary ---
Author Organization [employer] Address [address] [place] [address] 7t [place] [address] Care Team Providers Care Avionics Repair Technician Name Role Phone Roberta Burroughs MD Primary Care Pro vider Gonsalo Unger Unavailable Unavailable Reason for Visit * Reason Comments Med Refill Encounter Details Date Type Department Care Team (Late st Contact Info) Description 10/31/2024 Refill [facility] [address] [place] [address] [phone] Roberta Burroughs MD [address] [place], [place] [phone] Class 3 severe obesity due to excess [...] documented as of this encounter Care Teams Avionics Repair Technician Relationship Specialty Start Date End Date Roberta Burroughs MD [address] [place] [address] PCP - General Internal Medicine 08/05/22 Gonsalo Unger FNP [address] [place] [address] Nurse Practitioner Family Medicine 12/28/22 documented as of this encounter
--- OUTSIDE RECORDS SUMMARY | 2024-12-12 12:20 | XMS_ITS | Encounter Summary ---
Author Organization [employer] Address [address] [place] [address] Care Team Providers Care Audio Visual Technician Name Role Phone Roberta Burroughs MD Primary Care Pro vider Gonsalo Unger Unavailable Unavailable Reason for Visit * Reason Comments Med Refill Encounter Details Date Type Department Care Team (Late st Contact Info) Description 11/10/2022 Refill [facility] [address] [place] [address] Vida Van FNP Seasonal allergic rhinitis due [...] documented as of this encounter Care Teams Audio Visual Technician Relationship Specialty Start Date End Date Roberta Burroughs MD [address] [place] [address] PCP - General Internal Medicine 08/05/22 Gonsalo Unger FNP [address] [place] [address] Nurse Practitioner Family Medicine 12/28/22 documented as of this encounter
--- OUTSIDE RECORDS SUMMARY | 2024-12-12 12:20 | XMS_ITS | Encounter Summary ---
Author Organization [employer] Address [address] [place] [address] [address] [place] [address] Care Team Providers Care Lead Programmer Analyst Name Role Phone Roberta Burroughs MD Primary Care Pro vider Gonsalo Unger Unavailable Unavailable Reason for Visit * Reason Comments Med Refill Encounter Details Date Type Department Care Team (Late st Contact Info) Description 08/29/2024 Refill [facility] [address] [place], [place] [phone] Roberta Burroughs MD [address] [place], [place] [phone] Class 3 severe obesity due to excess [...] documented as of this encounter Care Teams Lead Programmer Analyst Relationship Specialty Start Date End Date Roberta Burroughs MD [address] [place] [address] PCP - General Internal Medicine 08/05/22 Gonsalo Unger FNP [address] [place] [address] Nurse Practitioner Family Medicine 12/28/22 documented as of this encounter
--- OUTSIDE RECORDS SUMMARY | 2024-12-12 12:20 | XMS_ITS | Encounter Summary ---
Author Organization [employer] Address [address] [facility] [address]t [place] [address] Care Team Providers Care Sports Management Internship Name Role Phone Vida Van Primary Care Provider Roberta Ritchie MD Primary Care Pro vider Gonsalo Unger Unavailable Unavailable Encounter Details Date Type Department Care Team ([facility] st Contact Info) Description 02/04/2022 Telephone [facility] [address] [place] [address] Vida Van FNP Social History Tobacco Use [...] documented as of this encounter Care Teams Sports Management Internship Relationship Specialty Start Date End Date Vida Van FNP PCP - General Family Medicine 10/06/21 08/04/22 Roberta Burroughs MD [address] [place], [place] [phone] PCP - General Internal Medicine 08/05/22 Gonsalo Unger FNP [address] [place] [address] Nurse Practitioner Family Medicine 12/28/22 documented as of this encounter
--- OUTSIDE RECORDS SUMMARY | 2024-12-12 12:20 | XMS_ITS | Encounter Summary ---
Author Organization [email or web address] Address [address] [place] [address] Care Team Providers Care Leak Detector Name Role Phone Roberta Burroughs MD Primary Care Pro vider Gonsalo Unger Unavailable Unavailable Reason for Visit * Reason Comments Med Refill Encounter Details Date Type Department Care Team (Late st Contact Info) Description 11/10/2022 Refill [facility] [address] [place] [address] Gonsalo Unger FNP Anxious depression Social History [...] t he electric, gas, oil or water [employer] threatened to shut off services in your [...] documented as of this encounter Care Teams Leak Detector Relationship Specialty Start Date End Date Roberta Burroughs MD [address] [place] [address] PCP - General Internal Medicine 08/05/22 Gonsalo Unger FNP [address] [place] [address] Nurse Practitioner Family Medicine 12/28/22 documented as of this encounter
--- OUTSIDE RECORDS SUMMARY | 2024-12-12 12:20 | XMS_ITS | Encounter Summary ---
Author Organization [employer] Address [address] [place] [address] 7 [place] [address] Care Team Providers Care Gauge Checker Name Role Phone Roberta Burroughs MD Primary Care Pro vider Gonsalo Unger Unavailable Unavailable Reason for Visit * Reason Onset Date Comments Prior Authorization 08/02/2024 Encounter Details Date Type Department Care Team ([facility] st Contact Info) Description 08/02/2024 Telephone [facility] [address] [place] [address] Roberta Burrougsh MD [address] [place] [address] Prior Authorization Social History Tobacco Use Types [...] documented as of this encounter Care Teams Gauge Checker Relationship Specialty Start Date End Date Roberta Burroughs MD [address] [place] [address] PCP - General Internal Medicine 08/05/22 Gonsalo Unger FNP [address] [place] [address] Nurse Practitioner Family Medicine 12/28/22 documented as of this encounter
--- OUTSIDE RECORDS SUMMARY | 2024-12-12 12:20 | XMS_ITS | Encounter Summary ---
Author Organization [employer] Address [address] [facility] 7t [place] [address] Care Team Providers Care Rn Recovery Name Role Phone Roberta Burroughs MD Primary Care Pro vider Gonsalo Unger Unavailable Unavailable Reason for Visit * Reason Comments Med Refill Encounter Details Date Type Department Care Team (Late st Contact Info) Description 08/11/[address] [facility] MEDICINE [address] [place] [address] Gonsalo Unger FNP Anxious depression Social History [...] documented as of this encounter Care Teams Rn Recovery Relationship Specialty Start Date End Date Roberta Burroughs MD [address] [place] [address] PCP - General Internal Medicine 08/05/22 Gonsalo Unger FNP [address] [place] [address] Nurse Practitioner Family Medicine 12/28/22 documented as of this encounter
--- OUTSIDE RECORDS SUMMARY | 2024-12-12 12:20 | XMS_ITS | Clinical Summary ---
Author Organization [facility] ity Address [address] [place] [address] Care Team Providers Care Child Care Associate Name Role Phone Gonsalo Unger NP Primary Care Provider [phone] Social History Tobacco Use Types Packs/Day Years [...] age to complete this topic Care Teams Child Care Associate Relationship Specialty Start Date End Date Gonsalo Unger NP [address] [place] [address] PCP - General Internal Medicine 06/24/16
--- OUTSIDE RECORDS SUMMARY | 2024-12-12 12:20 | XMS_ITS | Encounter Summary ---
Author Organization [employer] Address 75 [facility] 7t [place] [address] Care Team Providers Care Animal Maintenance Supervisor Name Role Phone Roberta Burroughs MD Primary Care Pro vider Gonsalo Unger Unavailable Unavailable Reason for Visit * Reason Comments Med Refill Encounter Details Date Type Department Care Team (Late st Contact Info) Description 09/18/[address] [facility] MEDICINE [address] [place], [place] [phone] Name, MD Derek [address] [place] [address] Cobalamin deficiency Social History Tobacco Use Types [...] documented as of this encounter Care Teams Animal Maintenance Supervisor Relationship Specialty Start Date End Date Roberta Burroughs MD [address] [place] [address] PCP - General Internal Medicine 08/05/22 Gonsalo nUger FNP [address] [place] [address] Nurse Practitioner Family Medicine 12/28/22 documented as of this encounter
--- OUTSIDE RECORDS SUMMARY | 2024-12-12 12:20 | XMS_ITS | Encounter Summary ---
Author Organization [employer] Address [address] [facility] 7t [place] [address] Care Team Providers Care Paraprofessional Education Assistant Name Role Phone Vida Van DIRECTOR OF CLOUD SERVICES Primary Care Provider Roberta Ritchie MD Primary Care Pro vider Gonsalo Unger DIRECTOR OF CLOUD SERVICES Unavailable Unavailable Encounter Details Date Type Department Care Team (Late st Contact Info) Description 01/13/2022 Abstract [facility] MEDICINE [address] [place], [place] [phone] Ashley Badillo RN 230 [place] [address] Social History Tobacco Use Types Packs/Day Years [...] documented as of this encounter Care Teams Paraprofessional Education Assistant Relationship Specialty Start Date End Date Vida Van FNP PCP - General Family Medicine 10/06/21 08/04/22 Roberta Burroughs MD 230 [place], [place] [phone] PCP - General Internal Medicine 08/05/22 Gonsalo Unger FNP [address] [place] [address] Nurse Practitioner Family Medicine 12/28/22 documented as of this encounter
== END 2024-12-12 10:31 | disposition home or self-care (01) ==
LOC: HO.US 10:30
PROVIDERS: PCP Student in an Organized Health Care Education/Training Program; Visit Provider Student in an Organized Health Care Education/Training Program
DX: K76.9 Liver disease, unspecified (principal)
CPT/HCPCS: 76705

== ENCOUNTER → 2024-12-12 10:33 | Outpatient (BNV) | payer MEDICAID, SELFPAY | PROVIDERS: PCP Student in an Organized Health Care Education/Training Program; Visit Provider Radiology Diagnostic Radiology | DX: K76.89 Other specified diseases of liver (principal) | CPT/HCPCS: 76705 ==

== ENCOUNTER 2025-01-11 09:24 | Outpatient (AMB) | payer MEDICAID, SELFPAY ==
--- NOTE | 2025-01-11 09:24 | MHC.OFFVIS ---
Vital Signs 01/11/25 09:30 Height 5 ft 3 in Weight 163 lb BMI 28.9 BP 116/72 Intake Visit Reasons: Amenorrhea/ abn discharge Safety Lamp Keeper: Safety Lamp Keeper Present (Erin) Accompanied by: Self / Same As Patient Allergies No Known Allergies Allergy (Verified 01/11/25 09:30) Medication List - Last Reconciled 01/11/25 by Tisha Rodriguez CNM acyclovir 5% 1 appl topical 6XD 7 days albuterol sulfate 90 mcg/actuation 2 puffs inhalation Q6H PRN 30 days amitriptyline 50 mg (2 x 25 mg) PO BEDTIME 90 days [Anti-pronation orthotics Anti-pronation orthotics] bupropion HCl XL 300 mg PO QAM cholecalciferol (vitamin D3) 25 mcg PO QAM clonazepam 0.25 mg PO BID clotrimazole-betamethasone 1-0.05 % 1 appl topical BID 7 days cyanocobalamin (vitamin B-12) 1,000 mcg PO DAILY cyclobenzaprine 5 mg PO BID PRN 30 days diclofenac sodium 1% (Voltaren Arthritis Pain) 4 grams topical QID docusate sodium (Colace) 100 mg PO DAILY epinephrine IM fluticasone propion-salmeterol 250-50 mcg/dose (Wixela Inhub) 1 inh inhalation BID 30 days fluticasone propionate 50 mcg/actuation 2 sprays intranasal DAILY ibuprofen 600 mg PO Q6H PRN levothyroxine 137 mcg PO DAILY meclizine 25 mg PO TID PRN menthol-zinc oxide 0.44-20.6 % (Calmoseptine) 1 appl topical QID PRN montelukast 10 mg PO DAILY olmesartan 5 mg PO DAILY ondansetron 4 mg PO DAILY 30 days sumatriptan succinate take 1 tab at onset of headache; if no relief may repeat 1 tab after at least 2 hrs; PO 30 days tirzepatide (weight loss) (Zepbound) mg subcut QWEEK topiramate 50 mg PO BID 90 days trazodone 100 mg PO BEDTIME PRN 30 days valacyclovir (Valtrex) 500 mg PO DAILY 90 days Is last menstrual period known: Yes Last menstrual period: 11/28/24 Post menopausal: No Patient : No HPI HPI Amenorrhea/ abn discharge: Details: She called yesterday to make this appointment she is a number of concerns she missed a period in December her last period was November 28 she did have sex the beginning of December but she says she does not have sex often anymore she does not use anything for control she is not really with anybody if she got she would deal with it. She also is complaining of a abnormal malodorous discharge and she had some brown spotting she does not feel any breast tenderness like her periods going to come or anything she wanted a test to be done here and the test done at the beginning of the visit is negative.. She says she has other medical problems and she is getting things checked out with her doctor and she has an appointment coming up but she does not know when it is and she has blood work that she needs to get done before that visit she has thyroid problems she had run out of her thyroid medicine a few months ago and so her levels were off but she is on her 137 mg of levothyroxine now. She thinks she had a mammogram last year but she does not remember when it was or when her next 1 is due. [facility] Medical History Insomnia Carpal tunnel syndrome, bilateral upper limbs Depression Muscle tension headache Vulvar itching Abnormal urine odor Internal and external bleeding hemorrhoids Pruritus ani Migraine Anxiety B12 deficiency Vitamin D deficiency Obesity Postablative hypothyroidism Surgical History Hx of dilation and curettage Family History Father Cancer Mother Hypertension Diabetes High cholesterol CVD (cardiovascular disease) Social History Household Members Other:: daughter Housing: House Alcohol intake: never Patient Tobacco Use Status: Never used Tobacco Patient : No Current occupational status: unemployed Sexual orientation: Straight/Heterosexual Gender identity: Female Female Reproductive History Menstrual Duration of menses: 3-5 days Date of last menstrual period: 11/28/24 control method: none Total pregnancies: 1 Full term: 1 Date of last pap smear: 01/12/23 (negative pap smear, negative hpv ) Date of Mammogram: 04/20/24 (bi rad 1) Physical Exam Vital Signs: Last Vital Signs BP 116/72 01/11/25 09:30 BMI result Body Mass Index 28.9 Other: External vagina within normal limits vagina pink there is a white creamy discharge possibly consistent with bacterial vaginosis but we will await test results before treating. Cervix is long close pink very posterior uterus small anteverted mobile nontender fair to moderate tone with Kegel adnexa nonenlarged nontender. External Female Exam: normal external appearance Speculum Exam - Vagina: normal appearance of the vagina Speculum Exam - Cervix: normal appearance of the cervix Bimanual exam- vagina & uterus: normal bimanual exam, uterine size normal, consistency normal, uterine mobility normal, uterine shape normal and non-tender Bimanual Exam- Adnexa, other: normal adnexae, no masses and No adnexal tenderness Results Reviewed Results Reviewed: Name: Catalina Wood Age/Sex: 38/F : 1985 Unit#: [id number] Attend Dr: Roopa Rogers MD Re10/10/24 Status: DEP REF Location: [address] Disch: SPEC : [id number] BALJINDER: 10/10/24-1228 STATUS: COMP REQ : [id number] RECD: 10/10/24-[address]: Roopa Rogers MD COMP: 10/10/24-1423 ENTERED: 10/10/24-1225 [facility] DR: ORDERED: Free T4, TSH Test Result Flag Reference Free T4 1.56 0.71-1.85 ng/dL TSH 3rd Gen. 3.92 0.32-4.0 uIU/mL Note: A sustained TSH level above 2.5 uIU/mL may warrant further investigation. TSH 3rd Generation ([facility]) Assessment & Plan Assessment & Plan (1) Vaginal odor: Code(s): N89.8 - Other specified noninflammatory disorders of vagina Category: Medical (2) Problematic vaginal discharge: Code(s): N89.8 - Other specified noninflammatory disorders of vagina Category: Medical (3) Missed menses: Comment: 01/11/2025 hCG is negative. Code(s): N92.6 - Irregular menstruation, unspecified Category: Medical (4) Postablative hypothyroidism: Code(s): E89.0 - Postprocedural hypothyroidism Category: Medical (5) Difficulty eating: Code(s): R63.8 - Other symptoms and signs concerning food and fluid intake Category: Medical Plan Reviewed her many concerns she is worried about her kidneys what she just recently had a scan on and she says she is being followed for problem there additionally she is awaiting a workup for her stomach because she has been having trouble eating and she throws up every morning and she is also having bleeding when she has a bowel movement. Additionally she is waiting on the next blood work draw to assess other issues going on including her hypothyroidism. Her main concerns today were about all of these items including others including the vaginal odor that she said was worse and stronger and a little different from when she had had bacterial vaginosis and also her missed a period because she does not recall missing a period before it when her thyroid was really out of balance. Testing done today during the visit for gonorrhea chlamydia trichomoniasis bacterial vaginosis and yeast considered treating on supposition of BV but we will await test results I asked the patient to call mid day tomorrow so that if it is anything we can treat her before the weekend and I do recommend condoms if she does have unprotected sex. Additionally that could be many reasons for 1 missed. Including stress and her thyroid issue. She double checked her next appointment with her doctor it is in the 3rd week of February so she is due to get her lab work for all of those issues checked the week before. Additionally I am ordering testing for blood work for HIV hep B hep C and syphilis as she did have unprotected sex with someone in December. Patient had her mammogram last April which was negative and I asked her to check on her next appointments at the front facer get information on the portal. Orders: Orders Hepatitis C Antibody Today N89.8 - Other specified noninflammatory disorders of vagina, N92.6 - Irregular menstruation, unspecified Syphilis Screen Today N89.8 - Other specified noninflammatory disorders of vagina, N92.6 - Irregular menstruation, unspecified Hepatitis B Surface Antigen Today N89.8 - Other specified noninflammatory disorders of vagina, N92.6 - Irregular menstruation, unspecified HIV Ab/Ag Today N89.8 - Other specified noninflammatory disorders of vagina, N92.6 - Irregular menstruation, unspecified Coding Level of Care Code Est Pt Level 3 (48955) Diagnoses Vaginal odor N89.8 Problematic vaginal discharge N89.8 Missed menses N92.6 Postablative hypothyroidism E89.0 Difficulty eating R63.8
[2025-01-11 09:30] VITALS: BP 116/72; BMI 28.9
--- OUTSIDE RECORDS SUMMARY | 2025-01-11 10:39 | XMS_ITS | Encounter Summary ---
Author Organization [employer] Address 75 [facility] 7t [place] [address] Care Team Providers Care Steel Die Printer Name Role Phone Vida Van CENTERLESS GRINDER OPERATOR Primary Care Provider Roberta Ritchie MD Primary Care Pro vider Gonsalo Unger CENTERLESS GRINDER OPERATOR Unavailable Unavailable Encounter Details Date Type Department Care Team (Late st Contact Info) Description 01/13/2022 Abstract [facility] MEDICINE [address] [place], [place] [phone] Ashley Badillo RN [address] [place] [address] Social History Tobacco Use Types Packs/Day Years [...] 20 01/13/2022 2:35 PM Nadine Harris * How difficult have these problems made it for you to do your work, take care of things at home, or get along with other people? Answer Date of Assessment Author Somewhat difficult 01/13/2022 2:35 PM Nadine Harris documented as of this encounter Plan of Treatment Upcoming Encounters Date Type Department Care Team (Late st Contact Info) Description 03/02/2025 2:00 PM EST Office Visit [facility] MEDICINE [address] [place] [address] Roberta Burroughs MD [address] [place], [place] [phone] documented as of this encounter Visit Diagnoses Not on filedocumented in this encounter Additional Health Concerns Assessment Noted Time PHQ-9 Depression Total Score: 20 022 2:35 PM EST documented as of this encounter Care Teams Steel Die Printer Relationship Specialty Start Date End Date Vida Van FNP PCP - General Family Medicine 10/06/21 08/04/22 Roberta Burroughs MD [address] [place], [place] [phone] PCP - General Internal Medicine 08/05/22 Gonsalo Unger FNP [address] [place] [address] Nurse Practitioner Family Medicine 12/28/22 documented as of this encounter
--- OUTSIDE RECORDS SUMMARY | 2025-01-11 10:39 | XMS_ITS | Encounter Summary ---
Author Organization [employer] Address [address] [facility] [address] 7t [place] [address] Care Team Providers Care Repairer Resistance Welding Machines Name Role Phone Roberta Burroughs MD Primary Care Pro vider Gonsalo Unger Unavailable Unavailable Reason for Visit * Reason Comments Med Refill Encounter Details Date Type Department Care Team (Late st Contact Info) Description 01/09/2025 Refill [facility] [address] [place] [address] [phone] Gabe Cunha MD [address] [place] [address] Social History Tobacco Use Types Packs/Day Years [...] housing situation today? I have robbypatricia cornelius 10/12/[address] you [...] Description 03/02/2025 2:00 PM EST Office Visit [facility] [address] [place] [address] Roberta Burroughs MD [address] [place] [phone] documented as of this encounter Visit Diagnoses Not on filedocumented in this encounter Additional Health Concerns Assessment Noted Time PHQ-9 Depression Total Score: 16 025 3:33 PM EDT documented as of this encounter Care Teams Repairer Resistance Welding Machines Relationship Specialty Start Date End Date Roberta Burroughs MD [address] [place] [phone] PCP - General Internal Medicine 08/05/22 Gonsalo Unger FNP [address] [place] [address] Nurse Practitioner Family Medicine 12/28/22 documented as of this encounter
--- OUTSIDE RECORDS SUMMARY | 2025-01-11 10:39 | XMS_ITS | Encounter Summary ---
Author Organization [employer] Address [address] [place] [address] 7 [place] [address] Care Team Providers Care Certified Master Locksmith Name Role Phone Roberta Burroughs MD Primary Care Pro vider Gonsalo Unger Unavailable Unavailable Encounter Details Date Type Department Care Team (Late st Contact Info) Description 10/31/2024 Refill [facility] MEDICINE [address] [place], [place] [phone] Roberta Burroughs MD [address] [place] [address] Class 3 severe obesity due to excess [...] Description 03/02/2025 2:00 PM EST Office Visit [facility] [address] [place] [address] Roberta Burroughs MD [address] [place] [phone] documented as of this encounter Visit Diagnoses Diagnosis Class 3 severe obesity due to excess calories with serious comorbidity and body mass index (BMI) of 40.0 to 44.9 in adult (HCC) documented in this encounter Additional Health Concerns Assessment Noted Time PHQ-9 Depression Total Score: 16 025 3:33 PM EDT documented as of this encounter Care Teams Certified Master Locksmith Relationship Specialty Start Date End Date Roberta Burroughs MD [address] [place] [address] PCP - General Internal Medicine 08/05/22 Gonsalo Unger FNP [address] [place], [place] [phone] Nurse Practitioner Family Medicine 12/28/22 documented as of this encounter
--- OUTSIDE RECORDS SUMMARY | 2025-01-11 10:39 | XMS_ITS | Encounter Summary ---
Author Organization [employer] Address [address] [place] [address] 7t [place] [address] Care Team Providers Care Code Enforcement Supervisor Name Role Phone Roberta Burroughs MD Primary Care Pro vider Gonsalo Unger Unavailable Unavailable Reason for Visit * Reason Comments Med Refill Encounter Details Date Type Department Care Team (Late st Contact Info) Description 10/31/2024 Refill [facility] [address] [place] [phone] Roberta Burroughs MD [address] [place], [place] [phone] Class 3 severe obesity due to excess [...] Description 03/02/2025 2:00 PM EST Office Visit [facility] MEDICINE [address] [place] [address] Roberta Burroughs MD [address] [place] [phone] documented as of this encounter Visit Diagnoses Diagnosis Class 3 severe obesity due to excess calories with serious comorbidity and body mass index (BMI) of 40.0 to 44.9 in adult (HCC) documented in this encounter Additional Health Concerns Assessment Noted Time PHQ-9 Depression Total Score: 16 025 3:33 PM EDT documented as of this encounter Care Teams Code Enforcement Supervisor Relationship Specialty Start Date End Date Roberta Burroughs MD [address] [place] [phone] PCP - General Internal Medicine 08/05/22 Gonsalo Unger FNP [address] [place] [phone] Nurse Practitioner Family Medicine 12/28/22 documented as of this encounter
--- OUTSIDE RECORDS SUMMARY | 2025-01-11 10:39 | XMS_ITS | Encounter Summary ---
Author Organization [employer] Address [address] [place] [address] 7 [place] [address] Care Team Providers Care Manager Strategy Name Role Phone Vida Van Primary Care Provider Roberta Ritchie MD Primary Care Pro vider Gonsalo Unger Unavailable Unavailable Encounter Details Date Type Department Care Team ([facility] Contact Info) Description 02/04/2022 Telephone [facility] MEDICINE [address] [place] [phone] Vida Van FNP Social History Tobacco Use [...] Upcoming Encounters Date Type Department Care Team ([facility] [address] Contact Info) Description 03/02/2025 2:00 PM EST Office Visit [facility] MED[facility]INE [address] [place] [address] Roberta Burroughs MD [address] [place], [place] [phone] documented as of this encounter Visit Diagnoses Not on filedocumented in this encounter Additional Health Concerns Assessment Noted Time PHQ-9 Depression Total Score: 20 022 2:35 PM EST documented as of this encounter Care Teams Manager Strategy Relationship Specialty Start Date End Date Vida Van FNP PCP - General Family Medicine 10/06/21 08/04/22 Roberta Burroughs MD [address] [place] [address] PCP - General Internal Medicine 08/05/22 Gonsalo Unger FNP [address] [place] [phone] Nurse Practitioner Family Medicine 12/28/22 documented as of this encounter
--- OUTSIDE RECORDS SUMMARY | 2025-01-11 10:39 | XMS_ITS | Encounter Summary ---
Author Organization [employer] Address [address] [facility] [address] 7t [place] [address] Care Team Providers Care Rotary Cutter Name Role Phone Roberta Burroughs MD Primary Care Pro vider Gonsalo Unger Unavailable Unavailable Reason for Visit * Reason Comments Med Refill Encounter Details Date Type Department Care Team (Late st Contact Info) Description 11/10/2022 Refill [facility] MEDICINE [address] [place] [address] Vida Van FNP Seasonal allergic rhinitis due [...] Description 03/02/2025 2:00 PM EST Office Visit [facility] MEDICINE [address] [place] [address] Roberta Burroughs MD [address] [place] [phone] documented as of this encounter Visit Diagnoses Diagnosis Seasonal allergic rhinitis due to pollen documented in this encounter Additional Health Concerns Assessment Noted Time PHQ-9 Depression Total Score: 10 023 2:49 PM EDT documented as of this encounter Care Teams Rotary Cutter Relationship Specialty Start Date End Date Roberta Burroughs MD [address] [place] [phone] PCP - General Internal Medicine 08/05/22 Gonsalo Unger FNP [address] [place] [phone] Nurse Practitioner Family Medicine 12/28/22 documented as of this encounter
--- OUTSIDE RECORDS SUMMARY | 2025-01-11 10:39 | XMS_ITS | Encounter Summary ---
Author Organization [employer] Address [address] [place] [address] 7 [place] [address] Care Team Providers Care Crystal Gazer Name Role Phone Roberta Burroughs MD Primary Care Pro vider Gonsalo Unger Unavailable Unavailable Reason for Visit * Reason Onset Date Comments Prior Authorization 08/02/2024 Encounter Details Date Type Department Care Team ([facility] st Contact Info) Description 08/02/2024 Telephone [facility] [address] [place] [address] Roberta Burroughs MD 230 [place] [address] Prior Authorization Social History Tobacco Use Types [...] Description 03/02/2025 2:00 PM EST Office Visit [facility] [address] [place] [phone] Roberta Burroughs MD [address] [place] [phone] documented as of this encounter Visit Diagnoses Not on filedocumented in this encounter Additional Health Concerns Assessment Noted Time PHQ-9 Depression Total Score: 17 024 11:32 AM EDT documented as of this encounter Care Teams Crystal Gazer Relationship Specialty Start Date End Date Roberta Burroughs MD [address] [place] [phone] PCP - General Internal Medicine 08/05/22 Gonsalo Unger FNP [address] [place] [phone] Nurse Practitioner Family Medicine 12/28/22 documented as of this encounter
--- OUTSIDE RECORDS SUMMARY | 2025-01-11 10:39 | XMS_ITS | Encounter Summary ---
Author Organization [employer] Address [address] [facility] 7t [place] [address] Care Team Providers Care E Learning Specialist Name Role Phone Roberta Burroughs MD Primary Care Pro vider Gonsalo Unger Unavailable Unavailable Reason for Visit * Reason Comments Med Refill Encounter Details Date Type Department Care Team (Late st Contact Info) Description 06/07/2024 Refill [facility] MED[facility]INE 230 [place], [place] [phone] Karina Eaton MD 230 [place] [address] Social History Tobacco Use Types Packs/Day Years [...] Description 03/02/2025 2:00 PM EST Office Visit [facility] [address] [place] [address] Roberta Burroughs MD [address] [place] [phone] documented as of this encounter Visit Diagnoses Not on filedocumented in this encounter Additional Health Concerns Assessment Noted Time PHQ-9 Depression Total Score: 17 024 11:32 AM EDT documented as of this encounter Care Teams E Learning Specialist Relationship Specialty Start Date End Date Roberta Burroughs MD [address] [place] [phone] PCP - General Internal Medicine 08/05/22 Gonsalo Unger FNP [address] [place] [address] Nurse Practitioner Family Medicine 12/28/22 documented as of this encounter
--- OUTSIDE RECORDS SUMMARY | 2025-01-11 10:39 | XMS_ITS | Encounter Summary ---
Author Organization [employer] Address [address] [facility] 7t [place] [address] Care Team Providers Care Telecommunications Project Manager Name Role Phone Roberta Burroughs MD Primary Care Pro vider Gonsalo Unger Unavailable Unavailable Reason for Visit * Reason Comments Med Refill Encounter Details Date Type Department Care Team (Late st Contact Info) Description 09/18/2024 Refill [facility] 230 [place], [place] [phone] Name, MD Derek 230 [place] [address] Cobalamin deficiency Social History Tobacco Use Types [...] Description 03/02/2025 2:00 PM EST Office Visit [facility] [address] [place] [phone] Roberta Burroughs MD [address] [place] [address] documented as of this encounter Visit Diagnoses Diagnosis Cobalamin deficiency Other B-complex deficiencies documented in this encounter Additional Health Concerns Assessment Noted Time PHQ-9 Depression Total Score: 17 024 11:32 AM EDT documented as of this encounter Care Teams Telecommunications Project Manager Relationship Specialty Start Date End Date Roberta Burroughs MD [address] [place] [phone] PCP - General Internal Medicine 08/05/22 Gonsalo Unger FNP [address] [place] [phone] Nurse Practitioner Family Medicine 12/28/22 documented as of this encounter
--- OUTSIDE RECORDS SUMMARY | 2025-01-11 10:39 | XMS_ITS | Encounter Summary ---
Author Organization [employer] Address [address] [place] [address] 7 [place] [address] Care Team Providers Care Comp Field Case Manager Name Role Phone Roberta Burroughs MD Primary Care Pro vider Gonsalo Unger Unavailable Unavailable Reason for Visit * Reason Comments Med Refill Encounter Details Date Type Department Care Team (Late st Contact Info) Description 08/29/2024 Refill [facility] MED[facility]INE 230 [place], [place] [phone] Roberta Burroughs MD 230 [place], [place] [phone] Class 3 severe obesity due to excess [...] Description 03/02/2025 2:00 PM EST Office Visit [facility] MED[facility] [address] [place] [address] [phone] Roberta Burroughs MD [address] [place] [phone] documented as of this encounter Visit Diagnoses Diagnosis Class 3 severe obesity due to excess calories with serious comorbidity and body mass index (BMI) of 40.0 to 44.9 in adult (HCC) documented in this encounter Additional Health Concerns Assessment Noted Time PHQ-9 Depression Total Score: 17 024 11:32 AM EDT documented as of this encounter Care Teams Comp Field Case Manager Relationship Specialty Start Date End Date Roberta Burroughs MD [address] [place] [phone] PCP - General Internal Medicine 08/05/22 Gonsalo Unger FNP [address] [place] [phone] Nurse Practitioner Family Medicine 12/28/22 documented as of this encounter
--- OUTSIDE RECORDS SUMMARY | 2025-01-11 10:39 | XMS_ITS | Encounter Summary ---
Author Organization [employer] Address [address] [place] [address] 7 [place] [address] Care Team Providers Care Contract Writer Name Role Phone Roberta Burroughs MD Primary Care Pro vider Gonsalo Unger Unavailable Unavailable Reason for Visit * Reason Onset Date Comments Results 01/05/2025 Encounter Details Date Type Department Care Team ([facility] st Contact Info) Description 01/05/2025 Results Follow-Up [facility] [address] [place], [place] [phone] Roberta Burroughs MD [address] [place] [address] US Abdomen Limited Social History Tobacco Use Types Packs/Day Years [...] encounter Miscellaneous Notes * Telephone Encounter - Tisha Polk RN - 01/09/2025 3:05 PM EST TC placed to pt to inform of the pt abdominal US result below indicating known liver possible calcifications and a renal cyst. Pt advised that this is not concerning at the time and no further testing is needed. The pt was reminded of upcoming appointment with PCP on 03/02/2025 and pt was agreeable. ----- Message from Roberta Acuna MD sent at 01/05/2025 2:35 PM EST ----- Please inform pt abdominal US showing known liver possible calcifications and renal cyst No need for further testing at this time -will further f up w pt at her next apt w me in 02/2025 * Telephone Encounter - Tiffany Perez - 01/09/2025 2:43 PM EST Tc from pt requesting a call regarding prior message * Telephone Encounter - Fanny Poon RN - 01/09/2025 9:39 AM EST Telephone call x2 to pt to advise of below result. No answer, left voicemail to call back. * Telephone Encounter - Tisha Polk RN - 01/08/2025 10:46 AM EST TC placed to the pt and a VM was left to call back the office in regard to result below. Will postpone for another attempt to contact ----- Message from Roberta Acuna MD sent at 01/05/2025 2:35 PM EST ----- Please inform pt abdominal US showing known liver possible calcifications and renal cyst No need for further testing at this time -will further f up w pt at her next apt w me in 02/2025 Thanks ----- Message ----- From: Interface, Ris Results In Sent: 12/12/2024 12:07 PM EST To: Roberta Acuna MD * Result Encounter Note - Roberta Acuna MD - 01/05/2025 2:35 PM EST Please inform pt abdominal US showing known liver possible calcifications and renal cyst No need for further testing at this time -will further f up w pt at her next apt w me in 02/2025 Thanks documented in this encounter Plan of Treatment Upcoming Encounters Date Type Department Care Team (Late st Contact Info) Description 03/02/2025 2:00 PM EST Office Visit [facility] [address] [place] [address] Roberta Burroughs MD [address] [place] [address] documented as of this encounter Visit Diagnoses Not on filedocumented in this encounter Additional Health Concerns Assessment Noted Time PHQ-9 Depression Total Score: 16 09/11/2 025 3:33 PM EDT documented as of this encounter Care Teams Contract Writer Relationship Specialty Start Date End Date Roberta Burroughs MD [address] [place] [address] PCP - General Internal Medicine 08/05/22 Gonsalo Unger FNP [address] [place] [address] Nurse Practitioner Family Medicine 12/28/22 documented as of this encounter
--- OUTSIDE RECORDS SUMMARY | 2025-01-11 10:39 | XMS_ITS | Clinical Summary ---
Author Organization [facility] Address [address] [place] [address] Care Team Providers Care Casino Supervisor Name Role Phone Gonsalo Unger NP Primary Care Provider [phone] Social History Tobacco Use Types Packs/Day Years [...] Depression Screening 02/09/2024 COVID-19 Vaccine ( - 2024-2 6 season) 2024 Influenza Vaccine (#1) 2024 RSV [...] age to complete this topic Care Teams Casino Supervisor Relationship Specialty Start Date End Date Gonsalo Unger NP [address] [place] [address] PCP - General Internal Medicine 06/24/16
--- OUTSIDE RECORDS SUMMARY | 2025-01-11 10:39 | XMS_ITS | Encounter Summary ---
Author Organization [employer] Address [address] [facility] 7t [place] [address] Care Team Providers Care Cone Operator Name Role Phone Roberta Burroughs MD Primary Care Pro vider Gonsalo Unger Unavailable Unavailable Reason for Visit * Reason Comments Med Refill Encounter Details Date Type Department Care Team (Late st Contact Info) Description 08/11/2023 Refill [facility] MEDICINE [address] [place] [address] Gonsalo Unger FNP Anxious depression Social History [...] Description 03/02/2025 2:00 PM EST Office Visit [facility] MEDICINE [address] [place] [phone] Roberta Burroughs MD [address] [place] [phone] documented as of this encounter 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
--- OUTSIDE RECORDS SUMMARY | 2025-01-11 10:39 | XMS_ITS | Encounter Summary ---
Author Organization [employer] Address [address] [facility] [address] 7[address] [place] [address] Care Team Providers Care Orthopaedic Nurse Name Role Phone Roberta Burroughs MD Primary Care Pro vider Gonsalo Unger Unavailable Unavailable Reason for Visit * Reason Comments Med Refill Encounter Details Date Type Department Care Team (Late st Contact Info) Description 11/10/2022 Refill [facility] [address] [place] [address] Gonsalo Unger FNP Anxious depression Social History [...] t he electric, gas, oil or water path intelligence threatened to shut off services in your [...] Description 03/02/2025 2:00 PM EST Office Visit [facility] MEDICINE [address] [place] [phone] Roberta Burroughs MD [address] [place] [phone] documented as of this encounter 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
--- OUTSIDE RECORDS SUMMARY | 2025-01-11 10:39 | XMS_ITS | Encounter Summary ---
Author Organization [employer] Address [address] [place] [address] 7t [place] [address] Care Team Providers Care Diplomatic Officer Name Role Phone Roberta Burroughs MD Primary Care Pro vider Gonsalo Unger Unavailable Unavailable Reason for Visit * Reason Comments Med Refill Encounter Details Date Type Department Care Team (Late st Contact Info) Description 10/18/[address] [facility] [address] [place] [address] [phone] Roberta Burroughs MD 230 [place], [place] [phone] Class 3 severe obesity due to excess [...] Description 03/02/2025 2:00 PM EST Office Visit [facility] MEDICINE [address] [place] [phone] Roberta Burroughs MD [address] [place] [phone] documented as of this encounter Visit Diagnoses Diagnosis Class 3 severe obesity due to excess calories with serious comorbidity and body mass index (BMI) of 40.0 to 44.9 in adult (HCC) documented in this encounter Additional Health Concerns Assessment Noted Time PHQ-9 Depression Total Score: 17 024 11:32 AM EDT documented as of this encounter Care Teams Diplomatic Officer Relationship Specialty Start Date End Date Roberta Burroughs MD [address] [place] [phone] PCP - General Internal Medicine 08/05/22 Gonsalo Unger FNP [address] [place] [phone] Nurse Practitioner Family Medicine 12/28/22 documented as of this encounter
--- OUTSIDE RECORDS SUMMARY | 2025-01-11 10:39 | XMS_ITS | Clinical Summary ---
Author Organization [employer] Address [address] [facility] [address] [place] [address] Care Team Providers Care Therapy Coordinator Name Role Phone Roberta Burroughs MD Primary [...] TWICE DAILY 60 tablet 1 023 Active Advair Diskus [...] tip and replace cap. 16 g 024 Active montelukast (Singulair) 10 MG tabletIndication s:Mild persistent asthma without complication TAKE 1 TABLET BY MOUTH EVERY DAY IN THE MORNING 90 tablet 1 024 Active cyanocobalamin (Vitamin B-12) 1000 MCG tabletIndication [...] ONCE DAILY 90 tablet 1 025 Active EPINEPHrine (Epipen) 0.3 MG/0.3ML injection syringeIndicatio ns:Allergic rhinitis, unspecified INJECT INTRAMUSCULARLY DIRECTED ON PACKAGE AND GO TO EMERGENCY ROOM 2 each 025 Active Fluocinolone Acetonide Scalp 0.01 % oilIndications:S [...] MOUTH TWICE A WEEK 24 tablet 1 025 Active olmesartan (BENIcar) 20 MG tabletIndication s:Essential hypertension TAKE 1 TABLET BY MOUTH ONCE DAILY 90 tablet 1 025 Active cetirizine (ZyrTEC) 10 MG tabletIndication s:Seasonal allergic rhinitis due to pollen TAKE 1 TABLET BY MOUTH ONCE DAILY NEEDED FOR ALLERGIES 90 tablet 1 025 Active Spacer/Aero-Hold ing Chambers (OptiChamber Nohemi) misc 1 each every 4 (four) hours if needed (asthma). 1 each 025 Active acetaminophen (Tylenol) 500 MG tablet Take 2 tablets (1,000 mg) by mouth every 6 (six) hours if needed for moderate pain or fever for up to 25 doses. 50 tablet 025 Active albuterol (Ventolin HFA) 108 (90 Base) MCG/ACT inhalerIndicatio ns:Mild persistent asthma without complication Inhale 2 puffs every 4 (four) hours if needed for wheezing or shortness of breath. 18 g 3 025 Active amitriptyline (Elavil) 50 MG tablet Take by mouth at bedtime. Active Tirzepatide-Weig ht Management (Zepbound) 15 MG/0.5ML solution auto-injector Inject 0.5 mL (15 mg) under the skin 1 (one) time per week. 6 mL 3 025 2025 Active docusate sodium (Colace) 100 MG capsule TAKE 1 CAPSULE BY MOUTH TWICE DAILY IN THE MORNING AND AT BEDTIME NEEDED FOR CONSTIPATION 180 capsule Active sodium chloride (Gracey) 0.65 % nasal spray Administer 1 spray into each nostril if needed for congestion. 15 mL 2 024 2024 docusate sodium (Colace) 100 MG capsule Take 1 capsule (100 mg) by mouth if needed in the morning and at bedtime for constipation. 60 capsule 3 025 2024 Discontinued Active Problems Problem Noted [...] intake with prescriber at her outpatient agency, [facility]. Meanwhile, will continue Wellbutrin XL 300 [...] Hypothyroidism 12/24/2014 Overview (08/05/2022): Care managed by [facility] Dr. Heber Murdock Last visit around 07/15/22 [...] a hx of recurrent sinusitis. 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 Plan: Continue Zyrtec. Start Augmentin BID x 7 days F/u with new vehicle care specialist Environmental and seasonal allergies 04/02/2022 10/31/2022 Overview (08/05/2022): Care managed by [facility] Receives allergy shots Assessment & Plan (08/05/2022 [...] been receiveing immunotherapy in the past unfortunatelly vehicle care specialist retired and she was unable to contine. Her nasal congestion is preventing her from sleeping. On exam she has significant turbinate erythema. She is already using otc Afrin and nasal steroids with no good results as well as daily antihistaminics Plan: Medrol dose pack while she sees her vehicle care specialist again to give her relief [...] Encounters Date Type Department Care Team Description 01/09/2025 Refill [facility] [address] [place] [address] Gabe Cunha MD 01/05/2025 Results Follow-Up [address] [address] Roberta Burroughs MD US Abdomen Limited 10/31/[address] [address] Roberta Burroughs MD Refill Issues 10/31/2024 Orders Only [address] [address] Roberta Burroughs MD 10/31/[address] [address] Roberta Burroughs MD Class 3 severe obesity due to excess calories with serious comorbidity and body mass index (BMI) of 40.0 to 44.9 in adult 10/31/2024 Refill [facility] [address] [place] [address] Roberta Burroughs MD Class 3 severe obesity due to excess calories with serious comorbidity and body mass index (BMI) of 40.0 to 44.9 in adult 10/19/2024 2:30 PM EDT Office Visit [address] [address] Roberta Burroughs MD Annual physical exam (Primary [...] Travel 10/18/2024 9:00 AM EDT Office Visit [facility] [address] [place] [phone] Gabe Cunha MD Non-recurrent acute suppurative otitis media of right ear without spontaneous rupture of tympanic membrane (Primary Dx); Acute otitis externa of right ear, unspecified type; Rectal bleeding; Excessive gas; Viral URI; Concussion without loss of consciousness, subsequent encounter; Mild persistent asthma without complication 10/18/2024 Telephone [facility] [address] [place] [address] [phone] Roberta Burroughs MD Prior Authorization 10/18/2024 Refill [facility] [address] [place] [address] [phone] Roberta Burroughs MD Class 3 severe obesity due to excess calories with serious comorbidity and body mass index (BMI) of 40.0 to 44.9 in adult 10/18/2024 Travel 10/12/2024 Patient Outreach [facility] [address] [place], [place] [phone] Roberta Burroughs MD Pre-visit Planning (SDOH screening negative and tobacco screening negative) from Last 3 Months Immunizations Immunization Administration [...] 10/19/2024 2:50 PM EDT Plan of Treatment Upcoming Encounters Date Type Department Care Team (Late st Contact Info) Description 03/02/2025 2:00 PM EST Office Visit [facility] [address] [place] [phone] Roberta Burroughs MD [address] [place] [address] Health Maintenance Due Date Last Done Comments Family Planning (PISQ) 10/24/1998 HPV Vaccines (1 - 3-dose series) 10/24/1998 Hepatitis A Vaccines (1 of 2 - Risk 2-dose series) 10/24/2002 COVID-19 Vaccine ( - season) 2024 07/12/2020, 06/14/2020 Depression Monitoring 04/18/2025 10/19/2024, 025 Alcohol/Substance Use Screening 06/27/2025 06/27/2024 Disability Screening 06/27/2025 06/27/2024 SDOH Screening 10/12/2025 10/12/2024 Tobacco Screening 10/19/2025 10/19/2024 Mammogram 04/20/2026 04/20/2024, 04/2023, 02/10/2023, Additional history exists Cervical Cancer Screening 01/13/2028 HPV/Cotest 01/13/2028 Pap [...] Patients (6 to 49) Years Completed 10/19/2024 Influenza Vaccine Completed 12/05/2024, , 12/02/2022, Additional history exists HIB Vaccines Aged Out [...] AM EST Narrative 12/12/2024 11:38 AM EST [place] [address] Ultrasound Report Signed Patient: Catalina Wood MR#: [id number] : 1985 Acct:[id number] Age/Sex: 39 / F ADM Date: 12/12/24 Loc: HO.US Attending Dr: Roberta Acuna MD Ordering Physician: Roberta Burroughs MD Date of Service: 12/12/24 Procedure(s): US abdomen limited Accession Number(s): [id number] cc: Roberta Burroughs MD Reason for Exam: [...] 12/12/24 1135 DD/ 1041 TD/TT: 12/12/24 1102 Trailer Body Assembler: BRIANNE Procedure Note Donotuseinterpreter, Image - 12/12/[address] [address] Ultrasound Report Signed Patient: Catalina Wood#: [id number] : 1985Acct:[id number] Age/Sex: 39 / FADM Date: 12/12/24 Loc: HO.US Attending Dr: Roberta Acuna MD Ordering Physician: Roberta Burroughs MD Date of Service: 12/12/24 Procedure(s): US abdomen limited Accession Number(s): [id number] cc: Roberta Burroughs MD Reason for Exam: [...] by: Leeann Finn MD 12/12/2024 11:35 AM [facility] Dictated By: Leeann Finn MD Signed By: <Electronically signed by Leeann Finn MD in OV> 12/12/24 1135 DD/ 1041 TD/TT: 12/12/24 1102 Trailer Body Assembler: BRIANNE us Roberta Acuna MD IMG US PROCEDURES Final Result * Influenza B (ID NOW Rapid Molecular) (10/18/2024 9:17 AM EDT) Influenza B Negative Negative, Indeterminate [facility] Swab 10/18/2024 9:17 AM EDT Gabe Cunha MD POINT OF CARE TEST ENTER/EDIT OR DERABLES Final Result [facility] [address] [place] [phone] * Influenza A (ID NOW Rapid Molecular) (10/18/2024 9:17 AM EDT) Influenza A Negative Negative, Indeterminate [facility] Swab 10/18/2024 9:17 AM EDT us Gabe Cunha MD POINT OF CARE TEST ENTER/EDIT OR DERABLES Final Result Performing Organization Address [facility] Co de Phone Number [facility] [address] [place] [phone] * POCT Rapid COVID Ag (10/18/2024 9:17 AM EDT) Rapid COVID Ag Negative [facility] Swab 10/18/2024 9:17 AM EDT us Gabe Cunha MD POINT OF CARE TEST ENTER/EDIT OR DERABLES Final Result Performing Organization Address [facility] Co de Phone Number [facility] [address] [place] [phone] * POCT rapid strep A manually resulted (10/18/2024 9:17 AM EDT) Pathologist [facility] Rapid Strep A Screen Negative Negative, None Detected [facility] Swab 10/18/2024 9:17 AM EDT us Gabe Cunha MD POINT OF CARE TEST ENTER/EDIT OR DERABLES Final Result Performing Organization Address [facility] Co de Phone Number [facility] [address] [place] [phone] * BI Mammogram Screening Tomosynthesis Bilateral (04/20/2024 3:25 PM EDT) Anatomical Region Laterality Modality Breast Bilateral Mammography 04/20/2024 3:25 PM EDT Narrative 04/29/2024 12:17 PM EDT [facility] [address] [place] [address] Mammography Report Signed Patient: Catalina Wood MR#: [id number] : 1985 Acct:[id number] Age/Sex: 38 / F ADM Date: 04/20/24 Loc: HO.MAMMO Attending Dr: Roberta Acuna MD Ordering Physician: Roberta Burroughs MD Re sults: 1Negative Date of Service: 04/20/24 Follow Up: 1 Year From Orig inal Mammogram Procedure(s): MM tomosynthesis screening BI Accession Number(s): [id number] cc: Roberta Burroughs MD EXAMINATION: MM SCREENING [...] 04/29/24 1214 DD/ 1525 TD/TT: 04/20/24 1538 Trailer Body Assembler: Procedure Note Donotuseinterpreter, Image - 04/29/2024 [facility] [address] [place] [address] Dr. Johnson, HEYDI [address] Mammography Report Signed Patient: Catalina Wood#: [id number] : 1985Acct:[id number] Age/Sex: 38 / FADM Date: 04/20/24 Loc: HO.MAMMO Attending Dr: Roberta Acuna MD Ordering Physician: Roberta Burroughs sults: 1Negative Date of Service: 04/20/24Follow Up: 1 Year From Orig inal Mammogram Procedure(s): MM tomosynthesis screening BI Accession Number(s): [id number] cc: Roberta Burroughs MD EXAMINATION: MM SCREENING [...] 04/29/24 1214 DD/ 1525 TD/TT: 04/20/24 1538 Trailer Body Assembler: Roberta Acuna MD IM BI PROCEDURES Edited Result - Final * Hepatitis C Antibody with Reflex to HCV, RNA, Quantitative, Real-Time PCR (12/10/2023 11:55 AM EDT) Hepatitis C Antibody Nonreactive Nonreactive [facility] Comment:Antibodies to HCV no t detected; does not exclude early acuteHCV infection. Blood Venous blood specimen / Unknown 12/10/2023 11:55 AM EDT 12/10/2023 1:25 PM EDT us Roberta Acuna MD LAB BLOOD ORDERAB LES Final Result Performing Organization Address City/[facility]/ZIP Co de Phone Number [facility] [address] [place] [phone] * HIV-1/2 Antigen and Antibodies, Fourth Generation, with Reflexes (12/10/2023 11:55 AM EDT) Pathologist [facility] HIV AB/AG Nonreactive Nonreactive [facility] Comment:HIV-1 p24 Ag and/or HIV-1/HIV-2 Ab not detected.A test result that is nonreactive does not exclude thepossibility of exposure to or infection with HIV-1 and/orHIV-2. Nonreactive results in this assay for individualswith prior exposure to HIV-1 and/or HIV-2 may be due toantigen and antibody levels that are below the limit ofdetection of this assay.The [employer] HIV Ag/Ab Combo assay result andsupplemental assay results should be interpreted inconjunction with the patient's clinical presentation,history and other laboratory results. If the results areinconsistent with clinical evidence, additional testing issuggested to confirm the result. Blood Venous blood specimen / Unknown 12/10/2023 11:55 AM EDT 12/10/2023 1:25 PM EDT us Roberta Acuna MD LAB BLOOD ORDERAB LES Final Result Performing Organization Address City/[facility]/ZIP Co de Phone Number [facility] [address] [place] [phone] * (ABNORMAL) Lipid Panel, Standard (12/10/2023 11:53 AM EDT) Triglycerides 49 <150 mg/dL [facility] Comment:Desirable Triglyceri de: less than 150 mg/dLBorderline High Triglyceride 150-199 mg/dLHigh Triglyceride: 200-499 mg/dLVery High Triglyceride: greater than or equal to 5OO mg/dL Cholesterol 163 <200 mg/dL [facility] Comment:Desirable Cholestero l: less than 200 mg/dLBorderline High Cholesterol: 200-239 mg/dLHigh Cholesterol: greater than 239 mg/dL LDL Cholesterol Calculated 100(H) <100 mg/dL [facility] Comment:Desirable LDL: less than 100 mg/dLNear Optimal/Above Optimal LDL: 110- 129 mg/dLBorderline High LDL: 130-159 mg/dLHigh LDL: 160-189 mg/dLVery High LDL: greater than or equal to 190 mg/dL HDL Cholesterol 54 >40 mg/dL [facility] Comment:Desirable HDL: great er than 40 mg/dL Note: This HDL assay may give artificially low results in patients with liver disease. Blood Venous blood specimen / Unknown 12/10/2023 11:53 AM EDT 12/10/2023 1:25 PM EDT us Roberta Acuna MD LAB BLOOD ORDERAB LES Final Result [facility] [address] [place] [phone] * Pap Smear (01/12/2023 9:41 AM EST) 01/12/2023 9:41 AM EST 01/13/2023 12:30 PM EST Narrative [facility] - 01/18/2023 1:41 PM EST ----- ------- Name: Catalina Wood Age/Sex: 37/F : 1985 Unit#: [id number] Attend Dr: Sparkle Maldonado CNM Re01/12/23 Status: DEP REF Location: [facility] Disch: ----- ------- SPEC : [id number] RECD: 01/13/23-1230 STATUS: ROSSANA GARIBAY NUM: [id number] BALJINDER: 01/12/[address] [facility] [address]: Sparkle Maldonado CNM ENTERED: 01/13/23-1503 [...] 59, 66, 68) HPV testing performed by [employer], [place], [place]. See reference laboratory portion of the EMR for entire report. Clinical Information LMP: 12/13/22 Previous PAP test: 2018, WNL Material Received ThinPrep-Cervical Copies To: Sparkle Maldonado CNM [address] [place] [address] Dr. Hui [address] [place], [place] [phone] [facility] [address] [place] [address] ----- ------- Signed (signature on file) ERICKA Roa ([facility]) 01/18/23 1341 ----- ------- END OF REPORT us Generic External Data Provider LAB CYTOLOGY DINAE LEXI Final Result [facility] [address] [place] [phone] from Last 3 Months or Most Recently Relevant to Health Maintenance Insurance [facility] Care Teams Therapy Coordinator Relationship Specialty Start Date End Date Roberta Burroughs MD [address] [place], [place] [phone] PCP - General Internal Medicine 08/05/22 Gonsalo Unger FNP [address] [place] [address] Nurse Practitioner Family Medicine 12/28/22
== END 2025-01-11 10:11 | disposition home or self-care (01) ==
LOC: HO.HWSM 09:24
PROVIDERS: PCP Student in an Organized Health Care Education/Training Program; Visit Provider Advanced Practice Midwife
DX: N89.8 Other specified noninflammatory disorders of vagina (principal); N92.6 Irregular menstruation, unspecified; E89.0 Postprocedural hypothyroidism; R63.8 Other symptoms and signs concerning food and fluid intake
CPT/HCPCS: 99213

== ENCOUNTER 2025-01-11 09:24 | Outpatient (REF) | payer MEDICAID, SELFPAY ==
[2025-01-11 11:14] LABS: MANUAL DIFF FLAG NO
[2025-01-11 11:20] LABS: Hematocrit 32.3 % (37.0-47.0); Hemoglobin 10.5 g/dl (12.0-16.0); Imm Gran Abs Auto 0.00 X10*3/uL (0.00-0.03); Imm Gran Pct Auto 0.0 % (0.0-0.4); Lymphocytes Absolute Auto 1.0 X10*3/uL (1.2-4.9); Mean Corpuscular HGB Conc 32.5 g/dl (31.0-35.0); Mean Corpuscular Hemoglobin 28.8 pg (27.0-33.0); Mean Corpuscular Volume 88.7 fL (80.0-98.0); NRBC Abs Auto 0.000 X10*3/uL (0.0-0.012); NRBC Pct Auto 0.0 /100WBC (0.0-0.2); Platelet Count 202 X10*3/uL (160-400); Red Blood Count 3.64 X10*6/uL (4.20-5.50); White Blood Count 4.2 X10*3/uL (4.8-10.8)
[2025-01-11 14:35] LABS: Alanine Aminotransferase 8 U/L (0-31); Albumin Level 4.4 g/dL (3.5-5.0); Alkaline Phosphatase 46 U/L (39-117); Anion Gap 10 (12-20); Aspartate Amino Transferase 22 U/L (5-31); Blood Urea Nitrogen 20 mg/dL (9-16); Calcium 9.4 mg/dL (8.4-10.2); Carbon Dioxide 26 mmol/L (22-29); Chloride 111 mmol/L (96-108); Cholesterol 162 mg/dL (<200); Estimated Glomerular Filt Rate > 60; HDL Cholesterol 43 mg/dL (>40); Potassium 3.5 mmol/L (3.3-5.1); Sodium 143 mmol/L (135-145); Total Protein 6.9 g/dL (6.5-8.0); Triglycerides 58 mg/dL (<150)
[2025-01-11 15:29] LABS: Free T4 (Free Thyroxine) 1.30 ng/dL (0.71-1.85)
[2025-01-11 16:55] LABS: Microalbum/Creatinine Ratio Ur 4.8 ug/mg cr (<30)
[2025-01-12 00:28] LABS: CT PCR Urine NOT DETECTED (Not Detect.); NG PCR Urine NOT DETECTED (Not Detect.)
[2025-01-12 04:54] LABS: ~HepC Num1 0.11 S/CO (0.00-0.79); ~Hepatitis C Antibody Nonreactive (Nonreactive)
[2025-01-12 05:12] LABS: HBsAGNum1 0.33 S/CO (0.00-0.99); Hepatitis B Surface Antigen Negative (Negative); ~HepC Num1 0.12 S/CO (0.00-0.79); ~Hepatitis C Antibody Nonreactive (Nonreactive)
[2025-01-12 06:00] LABS: Syphilis Screen Nonreactive (Nonreactive)
[2025-01-12 06:05] LABS: HIV Num 1 0.06 S/CO (0.00-0.99)
== END 2025-01-11 09:25 | disposition home or self-care (01) ==
LOC: HO.HHCL 09:24
PROVIDERS: PCP Student in an Organized Health Care Education/Training Program; Visit Provider Advanced Practice Midwife
DX: Z00.00 Encounter for general adult medical examination without abnormal findings (principal); N89.8 Other specified noninflammatory disorders of vagina; N92.6 Irregular menstruation, unspecified; E89.0 Postprocedural hypothyroidism; R63.8 Other symptoms and signs concerning food and fluid intake; Z20.2 Contact with and (suspected) exposure to infections with a predominantly sexual mode of transmission; Z11.4 Encounter for screening for human immunodeficiency virus [HIV]; Z11.59 Encounter for screening for other viral diseases
CPT/HCPCS: 36415; 80053; 80061; 81515; 82043; 82306; 82570; 83036; 84439; 84443; 85025; 86780; 86803; 87340; 87389; 87491; 87591; 99212

== ENCOUNTER 2025-01-11 15:28 | Outpatient (REF) | payer MEDICAID, SELFPAY ==
--- OUTSIDE RECORDS SUMMARY | 2025-01-11 21:36 | XMS_ITS | Encounter Summary ---
Author Organization [employer] Address [address] [place] [address] 7t [place] [address] Care Team Providers Care Software Development Advisor Name Role Phone Roberta Burroughs MD Primary Care Pro vider Gonsalo Unger Unavailable Unavailable Reason for Visit * Reason Comments Med Refill Encounter Details Date Type Department Care Team (Late st Contact Info) Description 10/18/2024 Refill [facility] [address] [place] [address] [phone] Roberta Burroughs MD [address] [place], [place] [phone] Class 3 severe obesity due to excess [...] [facility] [address] [place] [phone] Roberta Burroughs MD [address] [place] [phone] documented as of this encounter Visit Diagnoses Diagnosis Class 3 severe obesity due to excess calories with serious comorbidity and body mass index (BMI) of 40.0 to 44.9 in adult (HCC) documented in this encounter Additional Health Concerns Assessment Noted Time PHQ-9 Depression Total Score: 17 024 11:32 AM EDT documented as of this encounter Care Teams Software Development Advisor Relationship Specialty Start Date End Date Roberta Burroughs MD [address] [place] [phone] PCP - General Internal Medicine 08/05/22 Gonsalo Unger FNP [address] [place] [phone] Nurse Practitioner Family Medicine 12/28/22 documented as of this encounter
--- OUTSIDE RECORDS SUMMARY | 2025-01-11 21:36 | XMS_ITS | Encounter Summary ---
Author Organization [employer] Address [address] [place] [address] 7t [place] [address] Care Team Providers Care Metal Bumper Name Role Phone Roberta Burroughs MD Primary Care Pro vider Gonsalo Unger Unavailable Unavailable Reason for Visit * Reason Comments Med Refill Encounter Details Date Type Department Care Team (Late st Contact Info) Description 10/31/2024 Refill [facility] [address] [place] [address] [phone] Roberta Burroughs MD [address] [place], [place] [phone] Class 3 severe obesity due to excess [...] EST Office Visit [facility] [address] [place] [phone] Roberta Burroughs MD [address] [place] [phone] documented as of this encounter Visit Diagnoses Diagnosis Class 3 severe obesity due to excess calories with serious comorbidity and body mass index (BMI) of 40.0 to 44.9 in adult (HCC) documented in this encounter Additional Health Concerns Assessment Noted Time PHQ-9 Depression Total Score: 16 025 3:33 PM EDT documented as of this encounter Care Teams Metal Bumper Relationship Specialty Start Date End Date Roberta Burroughs MD [address] [place] [phone] PCP - General Internal Medicine 08/05/22 Gonsalo Unger FNP [address] [place] [phone] Nurse Practitioner Family Medicine 12/28/22 documented as of this encounter
--- OUTSIDE RECORDS SUMMARY | 2025-01-11 21:36 | XMS_ITS | Encounter Summary ---
Author Organization [employer] Address [address] [facility] 7t [place] [address] Care Team Providers Care Senior Resident Care Director Name Role Phone Roberta Burroughs MD Primary Care Pro vider Gonsalo Unger Unavailable Unavailable Reason for Visit * Reason Comments Med Refill Encounter Details Date Type Department Care Team (Late st Contact Info) Description 09/18/2024 Refill [facility] [address] [place], [place] [phone] Name, MD Derek [address] [place] [address] Cobalamin deficiency Social History Tobacco Use Types [...] PM EST Office Visit [facility] [address] [place] [phone] Roberta Burroughs MD [address] [place] [phone] documented as of this encounter Visit Diagnoses Diagnosis Cobalamin deficiency Other B-complex deficiencies documented in this encounter Additional Health Concerns Assessment Noted Time PHQ-9 Depression Total Score: 17 024 11:32 AM EDT documented as of this encounter Care Teams Senior Resident Care Director Relationship Specialty Start Date End Date Roberta Burroughs MD [address] [place] [phone] PCP - General Internal Medicine 08/05/22 Gonsalo Unger FNP [address] [place] [phone] Nurse Practitioner Family Medicine 12/28/22 documented as of this encounter
--- OUTSIDE RECORDS SUMMARY | 2025-01-11 21:36 | XMS_ITS | Encounter Summary ---
Author Organization [employer] Address [address] [place] [address] 7 [place] [address] Care Team Providers Care Phlebotomy Specialist Name Role Phone Roberta Burroughs MD Primary Care Pro vider Gonsalo Unger Unavailable Unavailable Encounter Details Date Type Department Care Team (Late st Contact Info) Description 10/31/2024 Refill [facility] [address] [place], [place] [phone] Roberta Burroughs MD [address] [place] [address] Class 3 severe obesity due to excess [...] Description 03/02/2025 2:00 PM EST Office Visit [facility] [address] [place] [phone] Roberta Burroughs MD [address] [place] [address] documented as of this encounter Visit Diagnoses Diagnosis Class 3 severe obesity due to excess calories with serious comorbidity and body mass index (BMI) of 40.0 to 44.9 in adult (HCC) documented in this encounter Additional Health Concerns Assessment Noted Time PHQ-9 Depression Total Score: 16 025 3:33 PM EDT documented as of this encounter Care Teams Phlebotomy Specialist Relationship Specialty Start Date End Date Roberta Burroughs MD [address] [place] [phone] PCP - General Internal Medicine 08/05/22 Gonsalo Unger FNP [address] [place], [place] [phone] Nurse Practitioner Family Medicine 12/28/22 documented as of this encounter
--- OUTSIDE RECORDS SUMMARY | 2025-01-11 21:36 | XMS_ITS | Clinical Summary ---
Author Organization [employer] Address [address] [place] [address] Care Team Providers Care Enamel Cracker Name Role Phone Roberta Burroughs MD Primary [...] PAIN OR FEVER 50 tablet 025 Active FT Stool Softener 50-8.6 MG [...] THEN WASH OFF DIRECTED 118.28 mL 1 025 Active cholecalciferol (Vitamin D-3) 125 MCG (5000 UT) capsule TAKE 1 CAPSULE BY MOUTH ONCE DAILY 90 capsule 1 025 Active traZODone (Desyrel) 100 MG tablet TAKE 1 TABLET BY MOUTH EVERY DAY AT BEDTIME 90 tablet 025 Active meclizine (Antivert) 25 MG tabletIndication s:Vertigo TAKE 1 TABLET BY MOUTH THREE TIMES DAILY IN THE MORNING, AT NOON, AND AT BEDTIME NEEDED FOR DIZZINESS 30 tablet 2 025 Active lidocaine (Lidoderm) 5 % patchIndications :Concussion [...] at bedtime (muscle pain). 100 g 3 025 Active buPROPion XL (Wellbutrin XL) 300 MG 24 hr tabletIndication s:Anxious depression TAKE 1 TABLET BY MOUTH EVERY DAY IN THE MORNING 90 tablet 025 Active olmesartan (BENIcar) 20 MG tabletIndication [...] (four) hours if needed (asthma). 1 each Active acetaminophen (Tylenol) 500 MG tablet Take [...] tablet Take by mouth at bedtime. Active Tirzepatide-Viv ht Management (Zepbound) 15 MG/0.5ML solution auto-injector Inject 0.5 mL (15 mg) under the skin 1 (one) time per week. 6 mL 3 01/12/20 25 10:50 AM EST 025 2025 Active docusate sodium (Colace) 100 MG capsule TAKE 1 CAPSULE BY MOUTH TWICE DAILY IN THE MORNING AND AT BEDTIME NEEDED FOR CONSTIPATION 180 capsule Active ferrous gluconate (Fergon) 324 (38 Fe) MG tablet Take 1 tablet (324 mg) by mouth with breakfast. 90 tablet Active psyllium (Metamucil Smooth Texture) 58.6 % powder Take 5.12 g (3 g of fiber) by mouth 2 times daily. 283 g 2 025 2025 Active Ascorbic Acid (vitamin C) 250 MG tablet Take 1 tablet (250 mg) by mouth Once per day. 90 tablet 025 2025 Active sodium chloride (Clearwater) 0.65 % nasal spray Administer 1 spray into each nostril if needed for congestion. 15 mL 2 024 2024 psyllium (Metamucil Smooth Texture) 58.6 % powder Take 5.12 g (3 g of fiber) by mouth 2 times daily. 283 g 2 025 2024 Discontinued( Reorder (will not trigger notification to Pharmacy)) ferrous gluconate (Fergon) 324 (38 Fe) MG tablet TAKE 1 TABLET BY MOUTH TWICE A WEEK 24 tablet 1 025 2024 Discontinued( Reorder (will not trigger notification to Pharmacy)) docusate sodium (Colace) 100 MG capsule Take [...] intake with prescriber at her outpatient agency, [facility]. Meanwhile, will continue Wellbutrin XL 300 mg [...] Hypothyroidism 12/24/2014 Overview (08/05/2022): [place] [facility] Buck Last visit around 07/15/22 Recent [...] a hx of recurrent sinusitis. 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 Plan: Continue Zyrtec. Start Augmentin BID x 7 days F/u with new cheese specialist Environmental and seasonal allergies 04/02/2022 10/31/2022 Overview (08/05/2022): Care managed by [facility] Receives allergy shots Assessment & Plan (08/05/2022 [...] been receiveing immunotherapy in the past unfortunatelly cheese specialist retired and she was unable to contine. Her nasal congestion is preventing her from sleeping. On exam she has significant turbinate erythema. She is already using otc Afrin and nasal steroids with no good results as well as daily antihistaminics Plan: Medrol dose pack while she sees her cheese specialist again to give her relief Exposure [...] Encounters Date Type Department Care Team Description 01/11/2025 Results Follow-Up [facility] [address] [place] [phone] Roberta Burroughs MD T4, Free 01/11/2025 Orders Only [facility] [address] [place] [phone] Roberta Burroughs MD 01/09/2025 Refill [facility] [address] [place] [phone] Gabe Cunha MD 01/05/2025 Results Follow-Up [facility] [address] [place] [phone] Roberta Burroughs MD Abdomen Limited, CBC auto differential, Hemoglobin A1c 10/31/2024 Telephone [facility] [address] [place] [address] Roberta Burroughs MD Refill Issues 10/31/2024 Orders Only [address] [address] Roberta Burroughs MD 10/31/2024 Refill [facility] [address] [place] [phone] Roberta Burroughs MD Class 3 severe obesity due to excess calories with serious comorbidity and body mass index (BMI) of 40.0 to 44.9 in adult 10/31/2024 Refill [facility] [address] [place] [phone] Roberta Burroughs MD Class 3 severe obesity due to excess calories with serious comorbidity and body mass index (BMI) of 40.0 to 44.9 in adult 10/19/2024 2:30 PM EDT Office Visit [address] [address] Roberta Burroughs MD Annual physical exam (Primary [...] Travel 10/18/2024 9:00 AM EDT Office Visit [facility] [address] [address] Gabe Cunha MD Non-recurrent acute suppurative otitis media of right ear without spontaneous rupture of tympanic membrane (Primary Dx); Acute otitis externa of right ear, unspecified type; Rectal bleeding; Excessive gas; Viral URI; Concussion without loss of consciousness, subsequent encounter; Mild persistent asthma without complication 10/18/[address] [address] Roberta Burroughs MD Prior Authorization 10/18/2024 Refill [facility] [address] [address] Roberta Burroughs MD Class 3 severe obesity due to excess calories with serious comorbidity and body mass index (BMI) of 40.0 to 44.9 in adult 10/18/2024 Travel 10/12/2024 Patient Outreach [address] [address] Roberta Burroughs MD Pre-visit Planning (SDOH screening [...] Description 03/02/2025 2:00 PM EST Office Visit [facility] [address] [place] [phone] Roberta Burroughs MD [address], [place] [phone] Health Maintenance Due Date Last Done Comments [...] 01/13/2028 Pap Smear 01/13/2028 01/12/2023 Lipid Panel 01/11/2030 01/11/2025, 02/2023, 11/13/2022, Additional history exists DTaP/Tdap/Td Vaccines (5 - [...] Procedure Name Priority Date/Time Associated Diagnosis Comments ALBUMIN, RANDOM URINE W/CREATININE Routine 01/11/2025 1:44 PM EST Annual physical exam T4, FREE Routine 01/11/2025 10:24 AM EST VITAMIN D,25-OH,TOTAL,IA Routine 01/11/2025 10:24 AM EST Annual physical exam TSH W/REFLEX TO FT4 Routine 01/11/2025 1 0:24 AM EST Annual physical exam LIPID PANEL, STANDARD Routine 01/11/2025 10:24 AM EST Annual physical exam HEMOGLOBIN A1C Routine 01/11/2025 10:24 AM EST Annual physical exam COMPREHENSIVE METABOLIC PANEL Routine 01/11/2025 10:24 AM EST Annual physical exam CBC WITH AUTO DIFFERENTIAL Routine 01/11/2025 10:24 AM EST Annual physical exam US ABDOMEN LIMITED Routine 12/12/2024 10 :41 [...] 12/10/2023 11:55 AM EDT Annual physical exam PAP SMEAR Routine 01/12/2023 9:41 AM EST from Last 3 Months or Most Recently Relevant to Health Maintenance Results * Albumin, Random Urine W/Creatinine (01/11/2025 1:44 PM EST) Creatinine, Urine 265.91 mg/dL [facility] Microalbumin Urine 13.0 mg/L [facility] Microalbum Creatinine Ratio Ur 4.8 <30 ug/mg cr [facility] Comment:Albumin/Creatinine R atio Reference Ranges: Normal: < 30 ug/mg creatinine Microalbuminuria: 30 - 300 ug/mg creatinineClinical Albuminuria: > 300 ug/mg creatinine Urine (Urine, Random) 01/11/2025 1:44 PM EST 01/11/2025 3:57 PM EST Roberta Acuna MD LAB URINE ORDERAB LES Final Result [facility] [address] [place] [phone] * (ABNORMAL) Vitamin D, 25-Hydroxy, Total, Immunoassay (01/11/2025 10:24 AM EST) Vitamin D 25-OH Total 25.1(L) >30 ng/mL [facility] Comment: Health Based Reference Values*< 20 ng/mL Rjqrobxtd97-84 ng/mL Insufficient> 30 ng/mL Sufficient*Nisreen UGARTE. N Engl J Med. 2007;357:266-280There is no well-established upper level of normal vitamin Dlevels. Some laboratories use 50 ng/mL as an upper limit ofnormal. However, toxicity is patient-dependent and may occurat any level. Careful correlation with the patient'spresentation is necessary and, if there is concern forvitamin D toxicity, treatment should be consideredirrespective of the serum level.Care must be taken in interpreting Vitamin D results fromdifferent laboratories and methodologies. Published datademonstrated that results from patients undergoinghemodialysis may show a negative bias when tested withvarious automated 25-OH vitamin D assays when compared toLC-MS/MS.When testing samples from patients whose predominant form ofVitamin D is Vitamin D2, such as patients receiving VitaminD2 supplementation, results that are subtherapeutic shouldbe confirmed with another method such as LC-MS/MS. Blood Venous blood specimen / Unknown 01/11/2025 10:24 AM EST 01/11/2025 1:20 PM EST Roberta Acuna MD LAB BLOOD ORDERAB LES Final Result Performing Organization Address [facility]/ZIP Co de Phone Number [facility] [address] [place] [phone] * (ABNORMAL) TSH with Reflex to Free T4 (01/11/2025 10:24 AM EST) TSH reflex Free T4 5.90(H) 0.32 - 4.0 uIU/mL [facility] Blood 01/11/2025 10:2 4 AM EST 01/11/2025 1:20 PM EST Roberta Acuna MD LAB BLOOD ORDERAB LES Final Result Performing Organization Address City/[facility]/ZIP Co de Phone Number [facility] [address] [place] [phone] * (ABNORMAL) CBC auto differential (01/11/2025 10:24 AM EST) White Blood Count 4.2(L) 4.8 - 10.8 X10*3/uL [facility] Red Blood Count 3.64(L) 4.20 - 5.50 X10*6/uL [facility] Hemoglobin 10.5(L) 12.0 - 16.0 g/dl [facility] Hematocrit 32.3(L) 37.0 - 47.0 % [facility] Mean Corpuscular Volume 88.7 80.0 - 98.0 fL [facility] Mean Corpuscular Hemoglobin 28.8 27.0 - 33.0 pg [facility] Mean Corpuscular HGB Conc 32.5 31.0 - 35.0 g/dl [facility] Red Cell Distribution Width 13.6 11.0 - 16.0 % [facility] Platelet Count 202 160 - 400 X10*3/uL [facility] Mean Platelet Volume 11.7 9.4 - 12.3 fL [facility] Neutrophils Percent Auto 70.1 45 - 73 % [facility] Imm Gran Pct Auto 0.0 0.0 - 0.4 % [facility] Lymphocytes Percent Auto 23.7 20 - 40 % [facility] Monocytes Percent Auto 4.3 2 - 11 % [facility] Eosinophils Percent Auto 1.4 0 - 4 % [facility] Basophils Percent Auto 0.5 0 - 2 % [facility] NRBC Pct Auto 0.0 0.0 - 0.2 /100WBC [facility] Neutrophils Absolute Auto 2.9 2.0 - 8.3 x10*3/uL [facility] Imm Gran Abs Auto 0.00 0.00 - 0.03 X10*3/uL [facility] Lymphocytes Absolute Auto 1.0(L) 1.2 - 4.9 X10*3/uL [facility] Monocytes Absolute Auto 0.2 0.1 - 1.2 X10*3/uL [facility] Eosinophils Absolute Auto 0.1 0.0 - 0.4 X10*3/uL [facility] Basophils Absolute Auto 0.0 0.0 - 0.2 X10*3/uL [facility] NRBC Abs Auto 0.000 0.0 - 0.012 X10*3/uL [facility] Blood Venous blood specimen / Unknown 01/11/2025 10:24 AM EST 01/11/2025 11:11 AM EST Roberta Acuna MD LAB BLOOD ORDERAB LES Final Result Performing Organization Address [facility]/ZIP Co de Phone Number [facility] [address] [place] [phone] * T4, Free (01/11/2025 10:24 AM EST) Free T4 (Free Thyroxine) 1.30 0.71 - 1.85 ng/dL [facility] 01/11/2025 10:2 4 AM EST 01/11/2025 1:20 PM EST Roberta Acuna MD LAB BLOOD ORDERAB LES Final Result Performing Organization Address [facility] Phone Number [facility] [address] [place] [phone] * Hemoglobin A1c (01/11/2025 10:24 AM EST) Hemoglobin A1c 4.7 <6.0 % [facility] Comment:Hemoglobin A1C Refer ence Range Adults: 4.8 - 6.0 % Non diabetic: < 6.0 % Goal: < 7.0 %Additional Action Suggested: > 8.0 %Note: Hemoglobin A1c results are invalid for patients with abnormal amounts of HbF. Blood transfusions may impact the HbA1c concentration in the patient sample. Estimated Average Glucose 88 mg/dL [facility] Comment:eAG = Estimated ave rage glucose which is %A1C expressed asaverage glucose, using the formula of the R1J-RwsxjymCyygjsn Glucose study (ADAG), Diabetes Care, Vol.31,#8,Sep. 2007 Blood Venous blood specimen / Unknown 01/11/2025 10:24 AM EST 01/11/2025 11:11 AM EST Roberta Acuna MD LAB BLOOD ORDERAB LES Final Result Performing Organization Address [facility] Co de Phone Number [facility] [address] [place] [address] [place] [phone] * (ABNORMAL) Lipid Panel, Standard (01/11/2025 10:24 AM EST) Triglycerides 58 <150 mg/dL [facility] Comment:Desirable Triglyceri de: less than 150 mg/dLBorderline High Triglyceride 150-199 mg/dLHigh Triglyceride: 200-499 mg/dLVery High Triglyceride: greater than or equal to 5OO mg/dL Cholesterol 162 <200 mg/dL [facility] Comment:Desirable Cholestero l: less than 200 mg/dLBorderline High Cholesterol: 200-239 mg/dLHigh Cholesterol: greater than 239 mg/dL LDL Cholesterol Calculated 108(H) <100 mg/dL [facility] Comment:Desirable LDL: less than 100 mg/dLNear Optimal/Above Optimal LDL: 110- 129 mg/dLBorderline High LDL: 130-159 mg/dLHigh LDL: 160-189 mg/dLVery High LDL: greater than or equal to 190 mg/dL HDL Cholesterol 43 >40 mg/dL [facility] Comment:Desirable HDL: great er than 40 mg/dL Note: This HDL assay may give artificially low results in patients with liver disease. Blood Venous blood specimen / Unknown 01/11/2025 10:24 AM EST 01/11/2025 1:20 PM EST us Roberta Acuna MD LAB BLOOD ORDERAB LES Final Result [facility] [address] [place] [phone] * (ABNORMAL) Comprehensive Metabolic Panel (01/11/2025 10:24 AM EST) Sodium 143 135 - 145 mmol/L [facility] Potassium 3.5 3.3 - 5.1 mmol/L [facility] Chloride 111(H) 96 - 108 mmol/L [facility] Carbon Dioxide 26 22 - 29 mmol/L [facility] Anion Gap 10(L) 12 - 20 [facility] Urea Nitrogen (BUN) 20(H) 9 - 16 mg/dL [facility] Creatinine, Serum 0.83 0.5 - 1.4 mg/dL [facility] Estimated Glomerular Filt Rate >60 [facility] Comment:Chronic Kidney Disea se: Estimated GFR < 60 mL/min/1.63k5Achvmg Kidney Disease: Estimated GFR < 15 mL/min/1.73m2 Glucose 87 60 - 115 mg/dL [facility] Calcium 9.4 8.4 - 10.2 mg/dL [facility] Bilirubin, Total 0.6 0.0 - 1.0 mg/dL [facility] Aspartate Amino Transferase 22 5 - 31 U/L [facility] Alanine Aminotransferase 8 0 - 31 U/L [facility] Total Protein 6.9 6.5 - 8.0 g/dL [facility] Albumin Level 4.4 3.5 - 5.0 g/dL [facility] Alkaline Phosphatase 46 39 - 117 U/L [facility] Blood Venous blood specimen / Unknown 01/11/2025 10:24 AM EST 01/11/2025 1:20 PM EST us Roberta Acuna MD LAB BLOOD ORDERAB LES Final Result Performing Organization Address City/State/[facility] Co de Phone Number [facility] [address] [place] [phone] * US Abdomen Limited (12/12/2024 10:41 AM EST) Anatomical Region Laterality Modality Abdomen Ultrasound 12/12/2024 10:4 1 AM EST Narrative 12/12/2024 11:38 AM EST [address] [address] Ultrasound Report Signed Patient: Catalina Wood MR#: [id number] : 1985 Acct:[id number] Age/Sex: 39 / F ADM Date: 12/12/24 Loc: HO.US Attending Dr: Roberta Acuna MD Ordering Physician: Roberta Burroughs MD Date of Service: 12/12/24 Procedure(s): US abdomen limited Accession Number(s): [id number] cc: Roberta Burroughs MD Reason for Exam: [...] 12/12/24 1135 DD/ 1041 TD/TT: 12/12/24 1102 Mammal Control Agent: BRIANNE Procedure Note Donotuseinterpreter, Image - 12/12/2024 [facility] [address] [place] [address] Ultrasound Report Signed Patient: Catalina Wood#: [id number] : 1985Acct:[id number] Age/Sex: 39 / FADM Date: 12/12/24 Loc: HO.US Attending Dr: Roberta Acuna MD Ordering Physician: Roberta Burroughs MD Date of Service: 12/12/24 Procedure(s): US abdomen limited Accession Number(s): [id number] cc: Roberta Burroughs MD Reason for Exam: [...] by: Leeann Finn MD 12/12/2024 11:35 AM [facility] Dictated By: Leeann Finn MD Signed By: <Electronically signed by Leeann Finn MD in OV> 12/12/24 1135 DD/ 1041 TD/TT: 12/12/24 1102 Mammal Control Agent: BRIANNE Roberta Acuna MD IMG US PROCEDURES Final Result * Influenza B (ID NOW Rapid Molecular) (10/18/2024 9:17 AM EDT) Influenza B Negative Negative, Indeterminate [facility] Swab 10/18/2024 9:17 AM EDT Gabe Cunha MD POINT OF CARE TEST ENTER/EDIT OR DERABLES Final Result Performing Organization Address [facility] Co de Phone Number [facility] [address] [place] [phone] * Influenza A (ID NOW Rapid Molecular) (10/18/2024 9:17 AM EDT) Influenza A Negative Negative, Indeterminate [facility] Swab 10/18/2024 9:17 AM EDT Gabe Cunha MD POINT OF CARE TEST ENTER/EDIT OR DERABLES Final Result Performing Organization Address City/[facility] Co de Phone Number [facility] [address] [place] [phone] * POCT Rapid COVID Ag (10/18/2024 9:17 AM EDT) Rapid COVID Ag Negative [facility] Swab 10/18/2024 9:17 AM EDT Gabe Cunha MD POINT OF CARE TEST ENTER/EDIT OR DERABLES Final Result Performing Organization Address [facility] Co de Phone Number [facility] [address] [place] [phone] * POCT rapid strep A manually resulted (10/18/2024 9:17 AM EDT) Rapid Strep A Screen Negative Negative, None Detected [facility] Swab 10/18/2024 9:17 AM EDT Gabe Cunha MD POINT OF CARE TEST ENTER/EDIT OR DERABLES Final Result [facility] [address] [place] [phone] * BI Mammogram Screening Tomosynthesis Bilateral (04/20/2024 3:25 PM EDT) Anatomical Region Laterality Modality Breast Bilateral Mammography 04/20/2024 3:25 PM EDT Narrative 04/29/2024 12:17 PM EDT [facility] [address] [place] [address] Mammography Report Signed Patient: Catalina Wood MR#: [id number] : 1985 Acct:[id number] Age/Sex: 38 / F ADM Date: 04/20/24 Loc: HO.MAMMO Attending Dr: Roberta Acuna MD Ordering Physician: Roberta Burroughs MD Re sults: 1Negative Date of Service: 04/20/24 Follow Up: 1 Year From Orig ina Mammogram Procedure(s): MM tomosynthesis screening BI Accession Number(s): [id number] cc: Roberta Burroughs MD EXAMINATION: MM SCREENING [...] 04/29/24 1214 DD/ 1525 TD/TT: 04/20/24 1538 Mammal Control Agent: Procedure Note Donotuseinterpreter, Image - 04/29/2024 [facility] [address] [place] [address] Mammography Report Signed Patient: Catalina Wood#: [id number] : 1985Acct:[id number] Age/Sex: 38 / FADM Date: 04/20/24 Loc: NURY Attending Dr: Roberta Acuna MD Ordering Physician: Roberta Burroughs sults: 1Negative Date of Service: 04/20/24Follow Up: 1 Year From Orig inal Mammogram Procedure(s): MM tomosynthesis screening BI Accession Number(s): [id number] cc: Roberta Burroughs MD EXAMINATION: MM SCREENING [...] 04/29/24 1214 DD/ 1525 TD/TT: 04/20/24 1538 Mammal Control Agent: Roberta Acuna MD IMG BI PROCEDURES Edited Result - Final * Hepatitis C Antibody with Reflex to HCV, RNA, Quantitative, Real-Time PCR (12/10/2023 11:55 AM EDT) Hepatitis C Antibody Nonreactive Nonreactive [facility] Comment:Antibodies to HCV no t detected; does not exclude early acuteHCV infection. Blood Venous blood specimen / Unknown 12/10/2023 11:55 AM EDT 12/10/2023 1:25 PM EDT us Roberta Acuna MD LAB BLOOD ORDERAB LES Final Result [facility] [address] [place] [phone] * HIV-1/2 Antigen and Antibodies, Fourth Generation, with Reflexes (12/10/2023 11:55 AM EDT) HIV AB/AG Nonreactive Nonreactive [facility] Comment:HIV-1 p24 Ag and/or HIV-1/HIV-2 Ab not detected.A test result that is nonreactive does not exclude thepossibility of exposure to or infection with HIV-1 and/orHIV-2. Nonreactive results in this assay for individualswith prior exposure to HIV-1 and/or HIV-2 may be due toantigen and antibody levels that are below the limit ofdetection of this assay.The [employer] HIV Ag/Ab Combo assay result andsupplemental assay results should be interpreted inconjunction with the patient's clinical presentation,history and other laboratory results. If the results areinconsistent with clinical evidence, additional testing issuggested to confirm the result. Blood Venous blood specimen / Unknown 12/10/2023 11:55 AM EDT 12/10/2023 1:25 PM EDT us Roberta Acuna MD LAB BLOOD ORDERAB LES Final Result [facility] [address] [place] [phone] * Pap Smear (01/12/2023 9:41 AM EST) 01/12/2023 9:41 AM EST 01/13/2023 12:30 PM EST Mariela [facility] - 01/18/2023 1:41 PM EST ----- ------- Name: Catalina Wood Age/Sex: 37/F : 1985 Unit#: [id number] Attend Dr: Sparkle Maldonado CNM Re01/12/23 Status: DEP REF Location: [facility] Disch: ----- ------- SPEC : [id number] RECD: 01/13/23-1230 STATUS: ROSSANA GARIBAY NUM: [id number] BALJINDER: 01/12/[address] [facility] [address]: Sparkle Maldonado [facility] ENTERED: 01/13/23-150 SP TYPE: Pap Smr OTHR DR: Vida Van TRAFFIC COORDINATOR ORDERED: Pap Smear Interpretation Satisfactory for evaluation. Mild inflammation. Hyperkeratosis noted. Negative for intraepithelial lesion or malignancy. HPV mRNA E6/E7: NOT DETECTED This assay detects E6/E7 viral messenger RNA (mRNA) from 14 high-risk HPV types (16, 18, 31, 33, 35, 39, 45, 51, 52, 56, 58, 59, 66, 68) HPV testing performed by [facility], [place], [place]. See reference laboratory portion of the EMR for entire report. Clinical Information LMP: 12/13/22 Previous PAP test: 2018, WNL Material Received ThinPrep-Cervical Copies To: Sparkle Maldonado [address] [place] [address] Vida Van [facility] [address] [place] [address] ----- ------- Signed (signature on file) ERICKA Roa (ASCP) 01/18/23 1341 ----- ------- END OF REPORT us Generic External Data Provider LAB CYTOLOGY WILLIAM ELLIOTT Final Result [facility] [address] [place] [address] [phone] from Last 3 Months or Most Recently Relevant to Health Maintenance Insurance [facility] Care Teams Enamel Cracker Relationship Specialty Start Date End Date Roberta Burroughs MD [address] [place] [address] PCP - General Internal Medicine 08/05/22 Gonsalo Unger FNP [address] [place] [address] Nurse Practitioner Family Medicine 12/28/22
--- OUTSIDE RECORDS SUMMARY | 2025-01-11 21:37 | XMS_ITS | Encounter Summary ---
Author Organization [employer] Address [address] [place] [address] 7 [place] [address] Care Team Providers Care Color Specialist Name Role Phone Roberta Burroughs MD Primary Care Pro vider Gonsalo Unger Unavailable Unavailable Reason for Visit * Reason Onset Date Comments Results 01/05/2025 Encounter Details Date Type Department Care Team ([facility] st Contact Info) Description 01/05/2025 Results Follow-Up [facility] [address] [place] [address] Roberta Burroughs MD [address] [place] [address] US Abdomen Limited, CBC auto differential, Hemoglobin A1c Social History Tobacco Use Types Packs/Day Years [...] as of this encounter Miscellaneous Notes * Result Encounter Note - Roberta Acuna MD - 01/11/2025 2:37 PM EST Please call patient to advise to come to already scheduled apt with me to go over abnormal labs ANDPLEASE advise pt to increase her iron to daily from 2 times a week and to take it w vit C 1 tab a day for slight worse anemia sent today to her pharmacy Thanks * Telephone Encounter - Tisha Polk RN [...] Description 03/02/2025 2:00 PM EST Office Visit [facility] [address] [place] [address] Roberta Burroughs MD [address] [place] [address] documented as of this encounter Visit Diagnoses Not on filedocumented in this encounter Additional Health Concerns Assessment Noted Time PHQ-9 Depression Total Score: 16 025 3:33 PM EDT documented as of this encounter Care Teams Color Specialist Relationship Specialty Start Date End Date Roberta Burroughs MD [address] [place] [address] PCP - General Internal Medicine 08/05/22 Gonsalo Unger FNP [address] [place] [address] Nurse Practitioner Family Medicine 12/28/22 documented as of this encounter
--- OUTSIDE RECORDS SUMMARY | 2025-01-11 21:37 | XMS_ITS | Encounter Summary ---
Author Organization [employer] Address [address] [place] [address] 7 [place] [address] Care Team Providers Care Piggyback Clerk Name Role Phone Roberta Burroughs MD Primary Care Pro vider Gonsalo Unger Unavailable Unavailable Encounter Details Date Type Department Care Team (Late st Contact Info) Description 01/11/2025 Results Follow-Up [facility] [address] [place], [place] [phone] Roberta Burroughs MD [address] [place], [place] [phone] T4, Free Social History Tobacco Use Types Packs/Day Years [...] housing situation today? 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 Thanks documented in this encounter Plan of Treatment Upcoming Encounters Date Type Department Care Team (Late st Contact Info) Description 03/02/2025 2:00 PM EST Office Visit [facility] [address] [place] [address] Roberta Burroughs MD [address] [place] [address] documented as of this encounter Visit Diagnoses Not on filedocumented in this encounter Additional Health Concerns Assessment Noted Time PHQ-9 Depression Total Score: 16 025 3:33 PM EDT documented as of this encounter Care Teams Piggyback Clerk Relationship Specialty Start Date End Date Roberta Burroughs MD [address] [place] [address] PCP - General Internal Medicine 08/05/22 Gonsalo Unger FNP [address] [place] [address] Nurse Practitioner Family Medicine 12/28/22 documented as of this encounter
--- OUTSIDE RECORDS SUMMARY | 2025-01-11 21:37 | XMS_ITS | Clinical Summary ---
Author Organization [facility] Address [address] [place] [address] Care Team Providers Care Potato Chip Maker Name Role Phone Gonsalo Unger NP Primary [...] age to complete this topic Care Teams Potato Chip Maker Relationship Specialty Start Date End Date Gonsalo Unger NP [address] [place] [address] PCP - General Internal Medicine 06/24/16
--- OUTSIDE RECORDS SUMMARY | 2025-01-11 21:37 | XMS_ITS | Encounter Summary ---
Author Organization [employer] Address [address] [place] [address] 7 [place] [address] Care Team Providers Care Early Childhood Education Coordinator Name Role Phone Roberta Burroughs MD Primary Care Pro vider Gonsalo Unger Unavailable Unavailable Reason for Visit * Reason Onset Date Comments Prior Authorization 08/02/2024 Encounter Details Date Type Department Care Team ([facility] st Contact Info) Description 08/02/2024 Telephone [facility] [address] [place] [address] Roberta Burroughs MD [address] [place] [address] Prior Authorization Social History Tobacco Use Types [...] Description 03/02/2025 2:00 PM EST Office Visit [facility] [address] [place] [address] Roberta Burroughs MD [address] [place] [address] documented as of this encounter Visit Diagnoses Not on filedocumented in this encounter Additional Health Concerns Assessment Noted Time PHQ-9 Depression Total Score: 17 024 11:32 AM EDT documented as of this encounter Care Teams Early Childhood Education Coordinator Relationship Specialty Start Date End Date Roberta Burroughs MD [address] [place] [address] PCP - General Internal Medicine 08/05/22 Gonsalo Unger FNP [address] [place] [address] Nurse Practitioner Family Medicine 12/28/22 documented as of this encounter
--- OUTSIDE RECORDS SUMMARY | 2025-01-11 21:37 | XMS_ITS | Encounter Summary ---
Author Organization [employer] Address [address] 7t [place] [address] Care Team Providers Care Brand Specialist Name Role Phone Roberta Burroughs MD Primary Care Pro vider Gonsalo Unger Unavailable Unavailable Reason for Visit * Reason Comments Med Refill Encounter Details Date Type Department Care Team (Late st Contact Info) Description 11/10/[address] [facility] [address] [place] [address] Vida Van FNP Seasonal allergic rhinitis due [...] 03/02/2025 2:00 PM EST Office Visit [facility] [address] [place] [address] Roberta Burroughs MD [address] [place] [address] documented as of this encounter Visit Diagnoses Diagnosis Seasonal allergic rhinitis due to pollen documented in this encounter Additional Health Concerns Assessment Noted Time PHQ-9 Depression Total Score: 10 023 2:49 PM EDT documented as of this encounter Care Teams Brand Specialist Relationship Specialty Start Date End Date Roberta Burroughs MD [address] [place] [address] PCP - General Internal Medicine 08/05/22 Gonsalo Unger FNP [address] [place] [address] Nurse Practitioner Family Medicine 12/28/22 documented as of this encounter
--- OUTSIDE RECORDS SUMMARY | 2025-01-11 21:37 | XMS_ITS | Encounter Summary ---
Author Organization [employer] Address [address] [facility] 7t [place] [address] Care Team Providers Care Brick Unloader Tender Name Role Phone Roberta Burroughs MD Primary Care Pro vider Gonsalo Unger Unavailable Unavailable Reason for Visit * Reason Comments Med Refill Encounter Details Date Type Department Care Team (Late st Contact Info) Description 08/11/2023 Refill [facility] [address] [place] [address] Gonsalo Unger FNP Anxious depression Social History [...] Description 03/02/2025 2:00 PM EST Office Visit [facility] [address] [place] [address] Roberta Burroughs MD [address] [place] [address] documented as of this encounter Visit Diagnoses Diagnosis Anxious depression documented in this encounter Additional Health Concerns Assessment Noted Time PHQ-9 Depression Total Score: 12 024 9:17 AM EST documented as of this encounter Care Teams Brick Unloader Tender Relationship Specialty Start Date End Date Roberta Burroughs MD [address] [place] [address] PCP - General Internal Medicine 08/05/22 Gonsalo Unger FNP [address] [place] [address] Nurse Practitioner Family Medicine 12/28/22 documented as of this encounter
--- OUTSIDE RECORDS SUMMARY | 2025-01-11 21:37 | XMS_ITS | Encounter Summary ---
Author Organization [employer] Address [address] [facility] 7t [place] [address] Care Team Providers Care Development Eng Name Role Phone Roberta Burroughs MD Primary Care Pro vider Gonsalo Unger Unavailable Unavailable Reason for Visit * Reason Comments Med Refill Encounter Details Date Type Department Care Team (Late st Contact Info) Description 06/07/2024 Refill [facility] [address] [place], [place] [phone] Karina Eaton MD [address] [place] [address] Social History Tobacco Use Types Packs/Day Years [...] Description 03/02/2025 2:00 PM EST Office Visit [facility] [address] [place] [address] Roberta Burroughs MD [address] [place] [address] documented as of this encounter Visit Diagnoses Not on filedocumented in this encounter Additional Health Concerns Assessment Noted Time PHQ-9 Depression Total Score: 17 024 11:32 AM EDT documented as of this encounter Care Teams Development Eng Relationship Specialty Start Date End Date Roberta Burroughs MD [address] [place] [address] PCP - General Internal Medicine 08/05/22 Gonsalo Unger FNP [address] [place] [address] Nurse Practitioner Family Medicine 12/28/22 documented as of this encounter
--- OUTSIDE RECORDS SUMMARY | 2025-01-11 21:37 | XMS_ITS | Encounter Summary ---
Author Organization [employer] Address [address] [place] [address] 7 [place] [address] Care Team Providers Care Infection Control Nurse Name Role Phone Roberta Burroughs MD Primary Care Pro vider Gonsalo Unger Unavailable Unavailable Reason for Visit * Reason Comments Med Refill Encounter Details Date Type Department Care Team (Late st Contact Info) Description 08/29/2024 Refill [facility] [address] [place], [place] [phone] Roberta Burroughs MD [address] [place], [place] [phone] Class 3 severe obesity due to excess [...] 2:00 PM EST Office Visit [facility] [address] [place] [address] [phone] Roberta Burroughs MD [address] [place] [address] documented as of this encounter Visit Diagnoses Diagnosis Class 3 severe obesity due to excess calories with serious comorbidity and body mass index (BMI) of 40.0 to 44.9 in adult (HCC) documented in this encounter Additional Health Concerns Assessment Noted Time PHQ-9 Depression Total Score: 17 024 11:32 AM EDT documented as of this encounter Care Teams Infection Control Nurse Relationship Specialty Start Date End Date Roberta Burroughs MD [address] [place] [address] PCP - General Internal Medicine 08/05/22 Gonsalo Unger FNP [address] [place] [address] Nurse Practitioner Family Medicine 12/28/22 documented as of this encounter
--- OUTSIDE RECORDS SUMMARY | 2025-01-11 21:37 | XMS_ITS | Encounter Summary ---
Author Organization [employer] Address [address] 7t [place] [address] Care Team Providers Care Papier Mache Molder Name Role Phone Roberta Burroughs MD Primary Care Pro vider Gonsalo Unger Unavailable Unavailable Reason for Visit * Reason Comments Med Refill Encounter Details Date Type Department Care Team (Late st Contact Info) Description 01/09/2025 Refill [facility] [address] [place] [address] [phone] Gabe Cunha MD [address] [place] [address] Social History Tobacco Use Types Packs/Day Years [...] Description 03/02/2025 2:00 PM EST Office Visit [facility] [address] [place] [address] Roberta Burroughs MD [address] [place] [address] documented as of this encounter Visit Diagnoses Not on filedocumented in this encounter Additional Health Concerns Assessment Noted Time PHQ-9 Depression Total Score: 16 025 3:33 PM EDT documented as of this encounter Care Teams Papier Mache Molder Relationship Specialty Start Date End Date Roberta Burroughs MD [address] [place] [address] PCP - General Internal Medicine 08/05/22 Gonsalo Unger FNP [address] [place] [address] Nurse Practitioner Family Medicine 12/28/22 documented as of this encounter
--- OUTSIDE RECORDS SUMMARY | 2025-01-11 21:37 | XMS_ITS | Encounter Summary ---
Author Organization [employer] Address [address] [facility] 7t [place] [address] Care Team Providers Care Olive Grader Name Role Phone Vida Van AGRICULTURE DEPARTMENT CHAIR Primary Care Provider Roberta Ritchie MD Primary Care Pro vider Gonsalo Unger AGRICULTURE DEPARTMENT CHAIR Unavailable Unavailable Encounter Details Date Type Department Care Team (Late st Contact Info) Description 01/13/2022 Abstract [facility] [address] [place], [place] [phone] Ashley Badillo RN [address] [place] [address] Social History Tobacco Use Types Packs/Day Years [...] Description 03/02/2025 2:00 PM EST Office Visit [facility] [address] [place] [address] Roberta Burroughs MD [address] [place], [place] [phone] documented as of this encounter Visit Diagnoses Not on filedocumented in this encounter Additional Health Concerns Assessment Noted Time PHQ-9 Depression Total Score: 20 022 2:35 PM EST documented as of this encounter Care Teams Olive Grader Relationship Specialty Start Date End Date Vida Van FNP PCP - General Family Medicine 10/06/21 08/04/22 Roberta Burroughs MD [address] [place], [place] [phone] PCP - General Internal Medicine 08/05/22 Gonsalo Unger FNP [address] [place] [address] Nurse Practitioner Family Medicine 12/28/22 documented as of this encounter
--- OUTSIDE RECORDS SUMMARY | 2025-01-11 21:37 | XMS_ITS | Encounter Summary ---
Author Organization [employer] Address [address] [facility] [address] 7t [place] [address] Care Team Providers Care Financial Recording Clerk Name Role Phone Roberta Burroughs MD Primary Care Pro vider Gonsalo Unger Unavailable Unavailable Reason for Visit * Reason Comments Med Refill Encounter Details Date Type Department Care Team (Late st Contact Info) Description 11/10/2022 Refill [facility] [address] [place] [address] Gonsalo Unger FNP Anxious depression Social History [...] t he electric, gas, oil or water [employer] threatened to shut off services in your [...] Description 03/02/2025 2:00 PM EST Office Visit [facility] [address] [place] [address] Roberta Burroughs MD [address] [place] [address] documented as of this encounter Visit Diagnoses Diagnosis Anxious depression documented in this encounter Additional Health Concerns Assessment Noted Time PHQ-9 Depression Total Score: 10 023 2:49 PM EDT documented as of this encounter Care Teams Financial Recording Clerk Relationship Specialty Start Date End Date Roberta Burroughs MD [address] [place] [address] PCP - General Internal Medicine 08/05/22 Gonsalo Unger FNP [address] [place] [address] Nurse Practitioner Family Medicine 12/28/22 documented as of this encounter
--- OUTSIDE RECORDS SUMMARY | 2025-01-11 21:37 | XMS_ITS | Encounter Summary ---
Author Organization [employer] Address [address] [place] [address] 7 [place] [address] Care Team Providers Care Superintendent Car Construction Name Role Phone Roberta Burroughs MD Primary Care Pro vider Gonsalo Unger Unavailable Unavailable Encounter Details Date Type Department Care Team (Late st Contact Info) Description 01/11/2025 Orders Only [facility] [address] [place], [place] [phone] Roberta Burroughs MD [address] [place] [address] Social History Tobacco Use Types Packs/Day Years [...] Description 03/02/2025 2:00 PM EST Office Visit [facility] [address] [place], [place] [phone] Roberta Burroughs MD [address] [place] [address] documented as of this encounter Procedures Procedure Name Priority Date/Time Associated Diagnosis Comments T4, FREE Routine 01/11/2025 10:24 AM EST documented in this encounter Results * T4, Free (01/11/2025 10:24 AM EST) Free T4 (Free Thyroxine) 1.30 0.71 - 1.85 ng/dL [facility] 01/11/2025 10:2 4 AM EST 01/11/2025 1:20 PM EST us Roberta Acuna MD LAB BLOOD ORDERAB LES Final Result [facility] [address] [place] [address] [phone] documented in this encounter Visit Diagnoses Not on filedocumented in this encounter Additional Health Concerns Assessment Noted Time PHQ-9 Depression Total Score: 16 025 3:33 PM EDT documented as of this encounter Care Teams Superintendent Car Construction Relationship Specialty Start Date End Date Roberta Burroughs MD [address] [place] [address] PCP - General Internal Medicine 08/05/22 Gonsalo Unger FNP [address] [place] [address] Nurse Practitioner Family Medicine 12/28/22 documented as of this encounter
--- OUTSIDE RECORDS SUMMARY | 2025-01-11 21:37 | XMS_ITS | Encounter Summary ---
Author Organization [employer] Address [address] [place] [address] 7 [place] [address] Care Team Providers Care Scheduling Coordinator Name Role Phone Vida Van Primary Care Provider Roberta Ritchie MD Primary Care Pro vider Gonsalo Unger Unavailable Unavailable Encounter Details Date Type Department Care Team ([facility] Contact Info) Description 02/04/2022 Telephone [facility] [address] [place] [address] [phone] Vida Van FNP Social History Tobacco Use [...] Upcoming Encounters Date Type Department Care Team ([facility] Contact Info) Description 03/02/2025 2:00 PM EST Office Visit [facility] [address] [place] [phone] Roberta Burroughs MD [address] [place], [place] [phone] documented as of this encounter Visit Diagnoses Not on filedocumented in this encounter Additional Health Concerns Assessment Noted Time PHQ-9 Depression Total Score: 20 022 2:35 PM EST documented as of this encounter Care Teams Scheduling Coordinator Relationship Specialty Start Date End Date Vida Van FNP PCP - General Family Medicine 10/06/21 08/04/22 Roberta Burroughs MD [address] [place] [address] PCP - General Internal Medicine 08/05/22 Gonsalo Unger FNP [address] [place] [address] Nurse Practitioner Family Medicine 12/28/22 documented as of this encounter
[2025-01-13 02:05] LABS: Bacterial Vaginosis PCR POSITIVE (Negative); Candida Group PCR NOT DETECTED (Not Detect); Candida glab krusei PCR NOT DETECTED (Not Detect); Trichomonas vaginalis PCR NOT DETECTED (Not Detect)
[2025-01-13 02:36] LABS: CT PCR NOT DETECTED (Not Detect.); NG PCR NOT DETECTED (Not Detect.)
== END 2025-01-11 15:29 | disposition home or self-care (01) ==
LOC: HO.LNP 15:28
PROVIDERS: Visit Provider Advanced Practice Midwife
DX: Z01.419 Encounter for gynecological examination (general) (routine) without abnormal findings (principal); Z20.2 Contact with and (suspected) exposure to infections with a predominantly sexual mode of transmission
CPT/HCPCS: 81515; 87491; 87591

== ENCOUNTER 2025-01-17 14:10 | Outpatient (AMB) | payer MEDICAID, SELFPAY ==
--- NOTE | 2025-01-17 14:18 | A.OFFVIS_ITS ---
Vital Signs 01/17/25 14:20 Height 5 ft 3 in Weight 160 lb 14.999 oz BMI 28.5 BP 119/79 Blood Pressure Location Lt brachial Position Sitting Pulse 80 Intake Visit Reasons: Rectal Bleeding, Excessive Gas Intake Note: New patient in office today for rectal bleeding and excessive gas. CC: Patient c/o constipation, rectal bleeding, excessive gas, vomiting, epigastric pain, and acid reflux. Symptoms started about 3 years ago. Mold Yard Supervisor Required: No Accompanied by: self Allergies No Known Allergies Allergy (Verified 01/11/25 09:30) HPI HPI Rectal Bleeding, Excessive Gas: Details: 39-year-old female here for initial evaluation of constipation and rectal bleeding. She is referred by [facility]. PMX Asthma Hypertension Tachyarrhythmia Hirsutism Hypothyroid Migraines Herpes simplex Constipation Seborrheic dermatitis of scalp Depression with anxiety Internal and external bleeding hemorrhoids Pes planus * SURGICAL HISTORY D&C * ALLERGIES: NKDA * [employer] LABS: Laboratory Tests 10/10/24 01/11/25 12:28 10:24 WBC 4.2 L RBC 3.64 L Hgb 10.5 L Hct 32.3 L MCV 88.7 Plt Count 202 Estimated GFR > 60 Total Bilirubin 0.6 AST 22 ALT 8 Alkaline Phosphatase 46 TSH 3.92 5.90 H Free T4 1.56 1.30 TODAY'S VISIT Prior scope: No Bowel or upper GI problems: Cardiac or resp anesthesia: ID: [id number]: [facility] Medical History Insomnia Carpal tunnel syndrome, bilateral upper limbs Depression Muscle tension headache Vulvar itching Abnormal urine odor Internal and external bleeding hemorrhoids Pruritus ani Migraine Anxiety B12 deficiency Vitamin D deficiency Obesity Postablative hypothyroidism Surgical History Hx of dilation and curettage Family History (Updated 01/17/25 @ 14:26 by ERNESTO Chu) Father Cancer Mother Hypertension Diabetes High cholesterol CVD (cardiovascular disease) Social History (Updated 01/17/25 @ 14:27 by Omkar Reese [facility]) Household Members Other:: daughter Housing: House Alcohol intake: never Patient Tobacco Use Status: Never used Tobacco Current occupational status: unemployed Sexual orientation: Straight/Heterosexual Gender identity: Female Review of Systems Const Denies fatigue, Denies fever(s), Denies night sweats, Denies poor appetite and Denies weight loss Eyes Details: glasses Reports requires corrective lenses ENT Reports Normal hearing present, Denies dental pain, Denies dysphagia, Denies hearing loss, Denies mouth pain, Denies odynophagia, Denies throat swelling, Denies tongue swelling and Reports other (Dentition adequate) GI Details: Denies abdominal pain, Denies melena, Denies bloating, Denies hematochezia, Denies constipation, Denies GI cramping, Denies dysphagia, Denies excessive flatus, Denies early satiety, Denies heartburn, Denies diarrhea, Denies nausea, Denies odynophagia, Denies vomiting and Denies hematemesis Skin/Breast Denies pruritus, Denies lesions, Denies rash and Denies jaundice Neuro Reports Normal hearing present and Denies Abnormal speech present Endo Denies fatigue Aller/Immun Denies throat swelling and Denies tongue swelling Physical Exam Vital Signs: BMI result Body Mass Index 28.5 Const General: cooperative, no acute distress, well developed and well groomed Nutritional Appearance: well nourished, obese and overweight Orientation/consciousness: oriented to person, oriented to place and oriented to time Limitations: No language barrier, ambulation with cane, ambulation with walker and wheelchair HEENT Head: Yes normocephalic and Yes atraumatic Eyes General: appearance normal, both eyes and all related structures Pupils: Equal, round and reactive pupils present Neck Neck: Yes normal visual inspection and Yes no lymphadenopathy Thyroid: Thyroid normal Resp Effort & Inspection: normal respiratory effort and able to speak in complete sentences Auscultation: clear to auscultation bilaterally Cardio Rate: regular rate Rhythm: regular rhythm Heart sounds: Normal, physiologic split S2 sound present Peripheral pulses: radial pulses present and posterior tibial pulses present GI Inspection: No distended and No Abdominal panniculus present Palpation (GI): Soft to palpation, nontender, no guarding, not rigid, No hepatosplenomegaly present and Hepatosplenomegaly present Percussion: Yes normal to percussion Auscultation: normal bowel sounds Rectal Exam - Female: deferred Skin General skin exam: no rashes or lesions noted, turgor normal, skin not dry, no jaundice, No spider nevi and no striae Rashes: no rashes Nails: normal Neuro General: oriented to person, oriented to place and oriented to time Cranial nerves: Yes Equal, round and reactive pupils present and Yes Normal hearing present Speech: No Abnormal speech present Extrem General: Yes normal to inspection, No clubbing, No cyanosis and No edema Psych Thought process: Normal thought process present and not confabulating Thought content: Normal thought content present Insight: Good insight present (Psych) Judgement: Good judgement present (Psych) Assessment & Plan Assessment & Plan (1) Internal and external bleeding hemorrhoids: Code(s): K64.4 - Residual hemorrhoidal skin tags; K64.8 - Other hemorrhoids Category: Medical (2) Constipation: Code(s): K59.00 - Constipation, unspecified Category: Medical (3) Acid reflux: Code(s): K21.9 - Gastro-esophageal reflux disease without esophagitis Category: Medical Plan Subjective Patient presents for evaluation of longstanding severe constipation with recent rectal bleeding, anemia, abdominal pain/bloating, and intermittent hoarseness/voice loss. Constipation has been present for years; without medications she may go weeks to a month without a bowel movement. Current stools are hard with scant pieces; feels a ?rock? stuck in the rectum requiring significant straining, with rectal and abdominal pain. Uses enemas from pharmacy about weekly; has used docusate (Colace) with minimal benefit and prior senna, MIRALAX, bisacodyl, fiber, and lactulose without improvement. Recent episode: enema led to a bowel movement accompanied by pain and scant bright red blood spotting on stool and toilet tissue that persisted for several hours and resolved the next day. Reports known hemorrhoids previously evaluated. Abdominal pain localized to the epigastrium with bloating and abdominal hardness; daily prominent borborygmi. Pain episodes occur 2?3 times per week, lasting hours to all day, severity ranging from 4/10 to 10/10; described as internal hittin g/movement with throbbing quality at times. Reports gas trapping with difficulty passing flatus and belching. Morning nausea with vomiting of bile occurring episodically (twice in one week two weeks ago, once weekly otherwise), with symptomatic relief post-emesis. Appetite markedly decreased since starting Zepbound; significant weight loss from approximately 235?240 lb to 160 lb. Fluid intake includes water, sports drinks, and vegetable/fruit juices; limited vegetable intake. Family history notable for mother with chronic stomach/gas issues and father with stomach cancer in his 70s. Past history includes hypothyroidism with recent nonadherence; now back on levothyroxine 137 mcg for only a few weeks. Anemia recently identified; started on oral iron and a powder laxative by another clinician. Currently on metronidazole for bacterial vaginosis. History of asthma with intermittent shortness of breath; echocardiogram and treadmill stress test scheduled next month. Surgical history significant for D&C after miscarriage. Denies history of hepatitis, HIV, TB, MRSA, or VRE. No prior colonoscopy. Objective - Recent labs: TSH elevated on 01/11, consistent with under-replacement. Anemia noted on recent testing. Assessment & Plan Chronic severe constipation with abdominal pain, bloating, gas trapping, and recent hematochezia: Presentation consistent with chronic idiopathic constipation with outlet symptoms; recent scant bright red blood likely from hemorrhoidal irritation secondary to straining. Ongoing borborygmi and episodic epigastric pain. Hypothyroidism and GLP-1 therapy likely contributing. - Start linaclotide (Linzess) at mid-dose: take once daily first thing in the morning with a full glass of water. Take daily. For the first dose, begin on a day off in case of robust response. - Continue docusate as stool softener. - Provide bisacodyl tablets to use as needed if no movement or as a bridge between effects. - May continue enemas as needed during titration. - If diarrhea occurs, skip a day and notify me; if insufficient effect, we will titrate dose upward. Expect frequent follow-ups and iterative adjustments. - Submit prior authorization for linaclotide as needed through insurance. Anemia with GI symptoms and rectal bleeding: Etiology unclear; need to evaluate for sources of occult/over GI blood loss in addition to hemorrhoids. - Schedule combined colonoscopy and upper endoscopy under sedation on the same day. - Prescribe full bowel prep; provide clear liquid diet and prep instructions. Emphasized optimizing constipation control prior to prep for adequate cleansing. - Target scheduling in March; proceed sooner if symptoms escalate. Hypothyroidism, under-replaced: Recent elevated TSH after medication lapses; now back on levothyroxine 137 mcg for only a few weeks. - Continue current levothyroxine dose; allow 4?6 weeks for stabilization, with recheck per PCP/endocrinology. Optimizing thyroid function should aid bowel motility. Nausea and vomiting of bile: Likely secondary to severe constipation with gastric/intestinal stasis (?no room at the inn?). - Primary management via constipation regimen above; anticipate improvement as bowel movements regularize. Bacterial vaginosis on metronidazole: - Continue metronidazole as prescribed. Strictly avoid alcohol (including in OTC products) during therapy due to disulfiram-like reaction risk. GLP-1/GIP agonist therapy (Zepbound) for weight loss: On 15.0 dose with substantial weight loss; therapy likely exacerbating constipation. - Continue current regimen; will manage GI side effects with bowel program as above. Reassess tolerance and need for dose adjustments if symptoms persist despite constipation control. Asthma; shortness of breath with planned cardiac evaluation: - Echocardiogram and exercise stress test scheduled locally next month; results to be reviewed prior to endoscopic procedures as needed. Follow-up: 8 weeks for reassessment and medication titration; sooner via message if inadequate response, intolerable side effects, or worsening bleeding, pain, or vomiting. Insurance prior authorization to be initiated for linaclotide; endoscopy scheduling to contact patient with prep details. Orders: Referrals GI Procedure Notification D64.9 - Anemia, unspecified Medications: New peg 3350-electrolytes 236-22.74-6.74 -5.86 gram (Golytely) until fecal effluent is clear; do not exceed a total volume of 2,000 mL 240 mL PO Q10M 4,000 mL 0RF 1 day Z12.11 - Encounter for screening for malignant neoplasm of colon bisacodyl (Dulcolax (bisacodyl)) 10 mg (2 x 5 mg) PO BEDTIME 2 days 4 tabs 0RF linaclotide (Linzess) Take first thing in the morning with a full glass of water. 145 mcg PO QAM 30 caps 3RF K58.1 - Irritable bowel syndrome with constipation bisacodyl (Dulcolax (bisacodyl)) 10 mg (2 x 5 mg) PO BEDTIME 60 tabs 3RF 30 days K59.00 - Constipation, unspecified Refilled docusate sodium (Colace) 100 mg PO DAILY 30 caps 6RF Coding Level of Care Code New Pt Level 3 (76990) Diagnoses Internal and external bleeding hemorrhoids K64.4; K64.8 Constipation K59.00 Acid reflux K21.9
[2025-01-17 14:20] VITALS: BP 119/79; PULSE 80; BMI 28.5
--- OUTSIDE RECORDS SUMMARY | 2025-01-17 22:07 | XMS_ITS | Encounter Summary ---
Author Organization [employer] Address [address] [place] [address] [address] [place] [address] Care Team Providers Care Office Services Associate Name Role Phone Roberta Burroughs MD Primary Care Pro vider Gonsalo Unger Unavailable Unavailable Reason for Visit * Reason Comments Med Refill Encounter Details Date Type Department Care Team (Late st Contact Info) Description 10/18/2024 Refill [facility] [address] [place] [address] [phone] Roberta Burroughs MD [address] [place], [place] [phone] Class 3 severe obesity due to excess [...] Nearly every day 10/19/2024 3:33 PM EDT Маряи Bello [place] * Feeling down, depressed, or [...] Description 03/02/2025 2:00 PM EST Office Visit [facility] [address] [place] [phone] Roberta Burroughs MD [address] [place] [phone] documented as of this encounter Visit Diagnoses Diagnosis Class 3 severe obesity due to excess calories with serious comorbidity and body mass index (BMI) of 40.0 to 44.9 in adult (HCC) documented in this encounter Additional Health Concerns Assessment Noted Time PHQ-9 Depression Total Score: 17 024 11:32 AM EDT documented as of this encounter Care Teams Office Services Associate Relationship Specialty Start Date End Date Roberta Burroughs MD [address] [place] [phone] PCP - General Internal Medicine 08/05/22 Gonsalo Unger FNP [address] [place] [phone] Nurse Practitioner Family Medicine 12/28/22 documented as of this encounter
--- OUTSIDE RECORDS SUMMARY | 2025-01-17 22:08 | XMS_ITS | Encounter Summary ---
Author Organization [employer] Address [address] [place] [address] 7 [place] [address] Care Team Providers Care Inside Sales Executive Name Role Phone Roberta Burroughs MD Primary Care Pro vider Gonsalo Unger Unavailable Unavailable Encounter Details Date Type Department Care Team (Late st Contact Info) Description 10/31/2024 Refill [facility] [address] [place], [place] [phone] Roberta Burroughs MD [address] [place] [address] Class 3 severe obesity due to excess [...] 03/02/2025 2:00 PM EST Office Visit [facility] [address] [place] [phone] Roberta Burroughs MD [address] [place] [phone] documented as of this encounter Visit Diagnoses Diagnosis Class 3 severe obesity due to excess calories with serious comorbidity and body mass index (BMI) of 40.0 to 44.9 in adult (HCC) documented in this encounter Additional Health Concerns Assessment Noted Time PHQ-9 Depression Total Score: 16 025 3:33 PM EDT documented as of this encounter Care Teams Inside Sales Executive Relationship Specialty Start Date End Date Roberta Burroughs MD [address] [place] [phone] PCP - General Internal Medicine 08/05/22 Gonsalo Unger FNP [address] [place], [place] [phone] Nurse Practitioner Family Medicine 12/28/22 documented as of this encounter
--- OUTSIDE RECORDS SUMMARY | 2025-01-17 22:08 | XMS_ITS | Encounter Summary ---
Author Organization [employer] Address [address] [place] [address] 7 [place] [address] Care Team Providers Care Fitness Services Manager Name Role Phone Roberta Burroughs MD Primary Care Pro vider Gonsalo Unger Unavailable Unavailable Reason for Visit * Reason Comments Med Refill Encounter Details Date Type Department Care Team (Late st Contact Info) Description 08/29/2024 Refill [facility] [address] [place], [place] [phone] Roberta Burroughs MD [address] [place], [place] [phone] Class 3 severe obesity due to excess [...] Description 03/02/2025 2:00 PM EST Office Visit [facility] [address] [place] [address] [phone] Roberta Burroughs MD [address] [place] [phone] documented as of this encounter Visit Diagnoses Diagnosis Class 3 severe obesity due to excess calories with serious comorbidity and body mass index (BMI) of 40.0 to 44.9 in adult (HCC) documented in this encounter Additional Health Concerns Assessment Noted Time PHQ-9 Depression Total Score: 17 024 11:32 AM EDT documented as of this encounter Care Teams Fitness Services Manager Relationship Specialty Start Date End Date Roberta Burroughs MD [address] [place] [phone] PCP - General Internal Medicine 08/05/22 Gonsalo Unger FNP [address] [place] [phone] Nurse Practitioner Family Medicine 12/28/22 documented as of this encounter
--- OUTSIDE RECORDS SUMMARY | 2025-01-17 22:08 | XMS_ITS | Encounter Summary ---
Author Organization [employer] Address [address] [place] [address] Care Team Providers Care Vocational Rehabilitation Teacher Name Role Phone Roberta Burroughs MD Primary Care Pro vider Gonsalo Unger Unavailable Unavailable Reason for Visit * Reason Comments Med Refill Encounter Details Date Type Department Care Team (Late st Contact Info) Description 11/10/2022 Refill [facility] [address] [place] [address] Vida Van FNP Seasonal allergic rhinitis due [...] 2:00 PM EST Office Visit [facility] [address] [place] [address] Roberta Burroughs MD [address] [place] [phone] documented as of this encounter Visit Diagnoses Diagnosis Seasonal allergic rhinitis due to pollen documented in this encounter Additional Health Concerns Assessment Noted Time PHQ-9 Depression Total Score: 10 023 2:49 PM EDT documented as of this encounter Care Teams Vocational Rehabilitation Teacher Relationship Specialty Start Date End Date Roberta Burroughs MD [address] [place] [address] [phone] PCP - General Internal Medicine 08/05/22 Gonsalo Unger FNP [address] [place] [phone] Nurse Practitioner Family Medicine 12/28/22 documented as of this encounter
--- OUTSIDE RECORDS SUMMARY | 2025-01-17 22:08 | XMS_ITS | Encounter Summary ---
Author Organization [employer] Address [address] [place] [address] Care Team Providers Care Funeral Home Attendant Name Role Phone Roberta Burroughs MD Primary Care Pro vider Gonsalo Unger Unavailable Unavailable Reason for Visit * Reason Comments Med Refill Encounter Details Date Type Department Care Team (Late st Contact Info) Description 11/10/2022 Refill [facility] [address] [place] [address] Gonsalo Unger FNP Anxious depression Social History [...] t he electric, gas, oil or water [employer] threatened to shut off services in your [...] 2:00 PM EST Office Visit [facility] [address] [place] [phone] Roberta Burroughs MD [address] [place] [phone] documented as of this encounter Visit Diagnoses Diagnosis Anxious depression documented in this encounter Additional Health Concerns Assessment Noted Time PHQ-9 Depression Total Score: 10 023 2:49 PM EDT documented as of this encounter Care Teams Funeral Home Attendant Relationship Specialty Start Date End Date Roberta Burroughs MD [address] [place] [address] [phone] PCP - General Internal Medicine 08/05/22 Gonsalo Unger FNP [address] [place] [address] [phone] Nurse Practitioner Family Medicine 12/28/22 documented as of this encounter
--- OUTSIDE RECORDS SUMMARY | 2025-01-17 22:08 | XMS_ITS | Encounter Summary ---
Author Organization [employer] Address [address] [place] [address] Care Team Providers Care Medical Collections Representative Name Role Phone Roberta Burroughs MD Primary Care Pro vider Gonsalo Unger Unavailable Unavailable Encounter Details Date Type Department Care Team (Late st Contact Info) Description 01/16/2025 Community Care Management [facility] [address] [place], [place] [phone] [employer] Link, Physician, Social History Tobacco Use Types Packs/Day Years [...] Description 03/02/2025 2:00 PM EST Office Visit [facility] [address] [place] [phone] Roberta Burroughs MD [address] [place] [phone] documented as of this encounter Visit Diagnoses Not on filedocumented in this encounter Additional Health Concerns Assessment Noted Time PHQ-9 Depression Total Score: 16 025 3:33 PM EDT documented as of this encounter Care Teams Medical Collections Representative Relationship Specialty Start Date End Date Roberta Burroughs MD [address] [place] [phone] PCP - General Internal Medicine 08/05/22 Gonsalo Unger FNP [address] [place] [address] [phone] Nurse Practitioner Family Medicine 12/28/22 documented as of this encounter
--- OUTSIDE RECORDS SUMMARY | 2025-01-17 22:08 | XMS_ITS | Clinical Summary ---
Author Organization [employer] Address [address] [facility] [place] [address] Care Team Providers Care Basic Combatant Swimmer Name Role Phone Roberta Burroughs MD Primary [...] or shortness of breath. 18 g 3 01/17/20 25 5:21 PM EST 025 Active amitriptyline (Elavil) 50 MG tablet [...] mg) by mouth with breakfast. 90 tablet 01/17/20 25 5:21 PM EST Active psyllium (Metamucil Smooth Texture) 58.6 % powder Take 5.12 g (3 g of fiber) by mouth 2 times daily. 283 g 2 025 2025 Active Ascorbic Acid (vitamin C) 250 MG tablet Take 1 tablet (250 mg) by mouth Once per day. 90 tablet 01/17/20 25 5:21 PM EST 025 2025 Active sodium chloride ([place]) 0.65 % nasal spray Administer 1 spray [...] with prescriber at her outpatient agency, [facility] Meanwhile, will continue Wellbutrin XL 300 mg [...] Hypothyroidism 12/24/2014 Overview (08/05/2022): Care managed by [facility] Dr. Heber Murdock Last visit [...] a hx of recurrent sinusitis. Unfortunately her emr specialist recently retired and she is awaiting to see a new one. Plan: Continue Zyrtec. Start Augmentin BID x 7 days F/u with new emr specialist Environmental and seasonal allergies 04/02/2022 10/31/2022 Overview (08/05/2022): Care managed by [facility] Receives allergy shots Assessment & Plan (08/05/2022 [...] been receiveing immunotherapy in the past unfortunatelly emr specialist retired and she was unable to contine. Her nasal congestion is preventing her from sleeping. On exam she has significant turbinate erythema. She is already using otc Afrin and nasal steroids with no good results as well as daily antihistaminics Plan: Medrol dose pack while she sees her emr specialist again to give her relief Exposure [...] Encounters Date Type Department Care Team Description 01/16/2025 Community Care Management [facility] [address] [place] [phone] Physician Navarro MD 01/15/2025 Telephone [facility] [address] [place] [phone] Roberta Burroughs MD Lab results faxed to Endocrine 01/12/2025 Telephone [facility] [address] [place] [address] Kortney Reyes ANP Error (VOID this visit) 01/11/2025 Results Follow-Up [facility] [address] [place] [phone] Roberta Burroughs MD T4, Free 01/11/2025 Orders Only [facility] [address] [place] [phone] Roberta Burroughs MD 01/09/2025 Refill [facility] [address] [place] [address] Gabe Cunha MD 01/05/2025 Results Follow-Up [facility] [address] [place] [phone] Roberta Burroughs MD Abdomen Limited, CBC auto differential, Hemoglobin A1c, Additional followed-up results: 4 10/31/[address] [address] Roberta Burroughs MD Refill Issues 10/31/2024 Orders Only [address] [address] Roberta Burroughs MD 10/31/[address] [address] Roberta Burroughs MD Class 3 severe obesity due to excess calories with serious comorbidity and body mass index (BMI) of 40.0 to 44.9 in adult 10/31/2024 Refill [facility] [address] [place] [phone] Roberta Burroughs MD Class 3 severe obesity due to excess calories with serious comorbidity and body mass index (BMI) of 40.0 to 44.9 in adult 10/19/2024 2:30 PM EDT Office Visit [address] [address] Roberta Burroughs MD Annual physical exam (Primary Dx); Dietary counseling; Exercise counseling; Hepatic lesion; Encounter for immunization; Essential hypertension; Class 3 severe obesity due to excess calories with serious comorbidity and body mass index (BMI) of 40.0 to 44.9 in adult; Postablative hypothyroidism; Health care maintenance; Anxious depression; Mood disorder ([facility]); Moderate asthma, unspecified whether complicated, unspecified whether persistent 10/19/2024 Travel 10/18/2024 9:00 AM EDT Office Visit [facility] [address] [phone] Gabe Cunha MD Non-recurrent acute suppurative otitis media of right ear without spontaneous rupture of tympanic membrane (Primary Dx); Acute otitis externa of right ear, unspecified type; Rectal bleeding; Excessive gas; Viral URI; Concussion without loss of consciousness, subsequent encounter; Mild persistent asthma without complication 10/18/[address] [address] Roberta Burroughs MD Prior Authorization 10/18/2024 Refill [facility] [address] [place] [phone] Roberta Burroughs MD Class 3 severe obesity due to excess calories with serious comorbidity and body mass index (BMI) of 40.0 to 44.9 in adult 10/18/2024 Travel from Last 3 Months Immunizations Immunization Administration [...] Description 03/02/2025 2:00 PM EST Office Visit [facility] [address] [place] [address] [phone] Roberta Burroughs MD [address] [place] [phone] Health Maintenance Due Date Last Done Comments Family Planning (PISQ) 10/24/1998 HPV Vaccines (1 - 3-dose series) 10/24/1998 Hepatitis A Vaccines (1 of 2 - Risk 2-dose series) 10/24/2002 COVID-19 Vaccine ( season) 2024 07/12/2020, 06/14/2020 Depression Monitoring 04/18/2025 [...] Completed 12/16/2011, 01/21/1996, 07/19/1995, Additional history exists Pneumococcal Vaccine: Pediatrics (0 to 5 Years) and At-Risk Patients (6 to 49) Years Completed 10/19/2024 Influenza Vaccine Completed 12/05/2024, , 12/02/2022, Additional history exists HIV Screening Completed 01/11/2025, 02/2023, 11/13/2022, Additional history exists Hepatitis C Screening Completed 01/11/2025 , 01/11/2025, 12/10/2023, Additional history exists HIB Vaccines Aged Out [...] 01/11/2025 1:44 PM EST Annual physical exam CHLAMYDIA/TRICHOMONAS/ NEISSERIA GONORRHOEAE, PCR, URINE Routine 01/11/2025 1:44 PM EST Annual physical exam HEPATITIS B SURFACE ANTIGEN, EIA Routine 01/11/2025 10:24 AM EST HIV 1/2 ANTIGEN/ANTIBODY, FOURTH GENERATION W/RFL Routine 01/11/2025 10:24 AM EST HEPATITIS C ANTIBODY Routine 01/11/2025 10:24 AM EST SYPHILIS SCREEN Routine 01/11/2025 10:24 AM EST T4, FREE Routine 01/11/2025 10:24 AM EST VITAMIN D,25-OH,TOTAL,IA Routine 01/11/2025 10:24 AM EST Annual physical exam TSH W/REFLEX TO FT4 Routine 01/11/2025 1 0:24 AM EST Annual physical exam LIPID PANEL, STANDARD Routine 01/11/2025 10:24 AM EST Annual physical exam HEPATITIS C AB W/REFL TO HCV RNA, QN, PCR Routine 01/11/2025 10:24 AM EST Annual physical [...] TOMOSYNTHESIS BILATERAL Routine 04/20/2024 3:25 PM EDT PAP SMEAR Routine 01/12/2023 9:41 AM EST from Last 3 Months or Most Recently Relevant to Health Maintenance Results * Chlamydia/Trichomonas/Neisseria gonorrhoeae, PCR, Urine (01/11/2025 1:44 PM EST) CT PCR, Urine NOT DETECTED Not Detect. [facility] Comment:A not detected test result does not exclude the possibilityof infection because test results can be affected byimproper specimen collection, concurrent antibiotic therapy,or the number of organisms in the specimen which may bebelow the sensitivity of the test. As with many diagnostictests, results from the Xpert CT/NG assay should beinterpreted in conjunction with other laboratory andclinical data available to the clinician.The Xpert CT/NG assay should not be used for the evaluationof suspected sexual abuse or for other medico-legalindications. Additional testing is recommended in anycircumstance when false positive or false negative resultscould lead to adverse medical, social or psychologicalconsequences. NG PCR, Urine NOT DETECTED Not Detect. [facility] Comment:A not detected test result does not exclude the possibilityof infection because test results can be affected byimproper specimen collection, concurrent antibiotic therapy,or the number of organisms in the specimen which may bebelow the sensitivity of the test. As with many diagnostictests, results from the Xpert CT/NG assay should beinterpreted in conjunction with other laboratory andclinical data available to the clinician.The Xpert CT/NG assay should not be used for the evaluationof suspected sexual abuse or for other medico-legalindications. Additional testing is recommended in anycircumstance when false positive or false negative resultscould lead to adverse medical, social or psychologicalconsequences. Urine (Urine, Random) 01/11/2025 1:44 PM EST 01/11/2025 3:57 PM EST us Roberta Acuna MD LAB URINE ORDERAB LES Final Result [facility] [address] [place] [phone] * Albumin, Random Urine W/Creatinine (01/11/2025 1:44 PM EST) Creatinine, Urine 265.91 mg/dL [facility] Microalbumin Urine 13.0 mg/L [facility] Microalbum Creatinine Ratio Ur 4.8 <30 ug/mg cr [facility] Comment:Albumin/Creatinine R atio Reference Ranges: Normal: < 30 ug/mg creatinine Microalbuminuria: 30 - 300 ug/mg creatinineClinical Albuminuria: > 300 ug/mg creatinine Urine (Urine, Random) 01/11/2025 1:44 PM EST 01/11/2025 3:57 PM EST Roberta Acuna MD LAB URINE ORDERAB LES Final Result Performing Organization Address [facility] de Phone Number [facility] [address] [place] [phone] * Syphilis Screen (01/11/2025 10:24 AM EST) Syphilis Screen Nonreactive Nonreactive [facility] 01/11/2025 10:2 4 AM EST 01/11/2025 1:20 PM EST Generic External Data Provider LAB BLOOD ORDERAB LES Final Result Performing Organization Address [facility] Phone Number [facility] [address] [place] [phone] * Hepatitis C Ab (01/11/2025 10:24 AM EST) Hepatitis C Antibody Nonreactive Nonreactive [facility] Comment:Antibodies to HCV no t detected; does not exclude early acuteHCV infection. 01/11/2025 10:2 4 AM EST 01/11/2025 1:20 PM EST Generic External Data Provider LAB BLOOD ORDERAB LES Final Result Performing Organization Address [facility] Number [facility] [address] [place] [phone] * (ABNORMAL) Vitamin D, 25-Hydroxy, Total, Immunoassay (01/11/2025 10:24 AM EST) Vitamin D 25-OH Total 25.1(L) >30 ng/mL [facility] Comment: Health Based Reference Values*< 20 ng/mL Wakoaylia10-41 ng/mL Insufficient> 30 ng/mL Sufficient*Nisreen UGARTE. N [...] ORDERAB LES Final Result Performing Organization Address [facility]/ZIP Co de Phone Number [facility] [address] [place] [phone] * (ABNORMAL) TSH with Reflex to Free T4 (01/11/2025 10:24 AM EST) TSH reflex Free T4 5.90(H) 0.32 - 4.0 uIU/mL [facility] Blood 01/11/2025 10:2 4 AM EST 01/11/2025 1:20 PM EST Roberta Acuna MD LAB BLOOD ORDERAB LES Final Result Performing Organization Address [facility] Co de Phone Number [facility] [address] [place] [phone] * (ABNORMAL) CBC auto differential (01/11/2025 10:24 AM EST) White Blood Count 4.2(L) 4.8 - 10.8 X10*3/uL [facility] Red Blood Count 3.64(L) 4.20 - 5.50 X10*6/uL [facility] Hemoglobin 10.5(L) 12.0 - 16.0 g/dl [facility] Hematocrit 32.3(L) 37.0 - 47.0 % [facility] Mean Corpuscular Volume 88.7 80.0 - 98.0 fL [facility] Mean Corpuscular Hemoglobin 28.8 27.0 - 33.0 pg [facility] Mean Corpuscular HGB Conc 32.5 31.0 - 35.0 g/dl [facility] Red Cell Distribution Width 13.6 11.0 - 16.0 % [facility] Platelet Count 202 160 - 400 X10*3/uL [facility] Mean Platelet Volume 11.7 9.4 - 12.3 fL [facility] Neutrophils Percent Auto 70.1 45 - 73 % [facility] Imm Gran Pct Auto 0.0 0.0 - 0.4 % [facility] Lymphocytes Percent Auto 23.7 20 - 40 % [facility] Monocytes Percent Auto 4.3 2 - 11 % [facility] Eosinophils Percent Auto 1.4 0 - 4 % [facility] Basophils Percent Auto 0.5 0 - 2 % [facility] NRBC Pct Auto 0.0 0.0 - 0.2 /100WBC [facility] Neutrophils Absolute Auto 2.9 2.0 - 8.3 x10*3/uL [facility] Imm Gran Abs Auto 0.00 0.00 - 0.03 X10*3/uL [facility] Lymphocytes Absolute Auto 1.0(L) 1.2 - 4.9 X10*3/uL [facility] Monocytes Absolute Auto 0.2 0.1 - 1.2 X10*3/uL [facility] Eosinophils Absolute Auto 0.1 0.0 - 0.4 X10*3/uL [facility] Basophils Absolute Auto 0.0 0.0 - 0.2 X10*3/uL [facility] NRBC Abs Auto 0.000 0.0 - 0.012 X10*3/uL [facility] Blood Venous blood specimen / Unknown 01/11/2025 10:24 AM EST 01/11/2025 11:11 AM EST Roberta Acuna MD LAB BLOOD ORDERAB LES Final Result Performing Organization Address [facility] de Phone Number [facility] [address] [place] [phone] * Hepatitis C Antibody with Reflex to HCV, RNA, Quantitative, Real-Time PCR (01/11/2025 10:24 AM EST) Pathologist [facility] Hepatitis C Antibody Nonreactive Nonreactive [facility] Comment:Antibodies to HCV no t detected; does not exclude early acuteHCV infection. Blood Venous blood specimen / Unknown 01/11/2025 10:24 AM EST 01/11/2025 1:20 PM EST us Roberta Acuna MD LAB BLOOD ORDERAB LES Final Result Performing Organization Address [facility] de Phone Number [facility] [address] [place] [phone] * Hepatitis B surface antigen, EIA (01/11/2025 10:24 AM EST) [facility] Hepatitis B Surface Ag Negative Negative [facility] 01/11/2025 10:2 4 AM EST 01/11/2025 1:20 PM EST us Generic External Data Provider LAB BLOOD ORDERAB LES Final Result Performing Organization Address [facility] de Phone Number [facility] [address] [place] [phone] * HIV-1/2 Antigen and Antibodies, Fourth Generation, with Reflexes (01/11/2025 10:24 AM EST) Pathologist [facility] HIV AB/AG Nonreactive Nonreactive [facility] Comment:HIV-1 p24 Ag and/or HIV-1/HIV-2 Ab not detected.A test result that is nonreactive does not exclude thepossibility of exposure to or infection with HIV-1 and/orHIV-2. Nonreactive results in this assay for individualswith prior exposure to HIV-1 and/or HIV-2 may be due toantigen and antibody levels that are below the limit ofdetection of this assay.The [employer] HIV Ag/Ab Combo assay result andsupplemental assay results should be interpreted inconjunction with the patient's clinical presentation,history and other laboratory results. If the results areinconsistent with clinical evidence, additional testing issuggested to confirm the result. 01/11/2025 10:2 4 AM EST 01/11/2025 1:20 PM EST us Generic External Data Provider LAB BLOOD ORDERAB LES Final Result Performing Organization Address [facility] Co de Phone Number [facility] [address] [place] [phone] * T4, Free (01/11/2025 10:24 AM EST) Free T4 (Free Thyroxine) 1.30 0.71 - 1.85 ng/dL [facility] 01/11/2025 10:2 4 AM EST 01/11/2025 1:20 PM EST us Roberta Acuna MD LAB BLOOD ORDERAB LES Final Result Performing Organization Address [facility] Co de Phone Number [facility] [address] [place] [phone] * Hemoglobin A1c (01/11/2025 10:24 AM EST) Hemoglobin A1c 4.7 <6.0 % [facility] Comment:Hemoglobin A1C Refer ence Range Adults: 4.8 - 6.0 % Non diabetic: < 6.0 % Goal: < 7.0 %Additional Action Suggested: > 8.0 %Note: Hemoglobin A1c results are invalid for patients with abnormal amounts of HbF. Blood transfusions may impact the HbA1c concentration in the patient sample. Estimated Average Glucose 88 mg/dL [facility] Comment:eAG = Estimated ave rage glucose which is %A1C expressed asaverage glucose, using the formula of the I4B-AesrlxkGnenuft Glucose study (ADAG), Diabetes Care, Vol.31,#8,2007 Blood Venous blood specimen / Unknown 01/11/2025 10:24 AM EST 01/11/2025 11:11 AM EST us Roberta Acuna MD LAB BLOOD ORDERAB LES Final Result Performing Organization Address [facility] Co de Phone Number [facility] [address] [place] [phone] * (ABNORMAL) Lipid Panel, Standard (01/11/2025 10:24 AM EST) Triglycerides 58 <150 mg/dL [facility] Comment:Desirable Triglyceri de: less than 150 mg/dLBorderline High Triglyceride 150-199 mg/dLHigh Triglyceride: 200-499 mg/dLVery High Triglyceride: greater than or equal to 5OO mg/dL Cholesterol 162 <200 mg/dL [facility] Comment:Desirable Cholestero l: less than 200 mg/dLBorderline High Cholesterol: 200-239 mg/dLHigh Cholesterol: greater than 239 mg/dL LDL Cholesterol Calculated 108(H) <100 mg/dL [facility] Comment:Desirable LDL: less than 100 mg/dLNear Optimal/Above Optimal LDL: 110- 129 mg/dLBorderline High LDL: 130-159 mg/dLHigh LDL: 160-189 mg/dLVery High LDL: greater than or equal to 190 mg/dL HDL Cholesterol 43 >40 mg/dL [facility] Comment:Desirable HDL: great er than 40 mg/dL Note: This HDL assay may give artificially low results in patients with liver disease. Blood Venous blood specimen / Unknown 01/11/2025 10:24 AM EST 01/11/2025 1:20 PM EST us Roberta Acuna MD LAB BLOOD ORDERAB LES Final Result Performing Organization Address [facility] Co de Phone Number [facility] [address] [place] [address] [phone] * (ABNORMAL) Comprehensive Metabolic Panel (01/11/2025 10:24 AM EST) Sodium 143 135 - 145 mmol/L [facility] Potassium 3.5 3.3 - 5.1 mmol/L [facility] Chloride 111(H) 96 - 108 mmol/L [facility] Carbon Dioxide 26 22 - 29 mmol/L [facility] Anion Gap 10(L) 12 - 20 [facility] Urea Nitrogen (BUN) 20(H) 9 - 16 mg/dL [facility] Creatinine, Serum 0.83 0.5 - 1.4 mg/dL [facility] Estimated Glomerular Filt Rate >60 [facility] Comment:Chronic Kidney Disea se: Estimated GFR < 60 mL/min/1.89k4Psohxt Kidney Disease: Estimated GFR < 15 mL/min/1.73m2 Glucose 87 60 - 115 mg/dL [facility] Calcium 9.4 8.4 - 10.2 mg/dL [facility] Bilirubin, Total 0.6 0.0 - 1.0 mg/dL [facility] Aspartate Amino Transferase 22 5 - 31 U/L [facility] Alanine Aminotransferase 8 0 - 31 U/L [facility] Total Protein 6.9 6.5 - 8.0 g/dL [facility] Albumin Level 4.4 3.5 - 5.0 g/dL [facility] Alkaline Phosphatase 46 39 - 117 U/L [facility] Blood Venous blood specimen / Unknown 01/11/2025 10:24 AM EST 01/11/2025 1:20 PM EST us Roberta Acuna MD LAB BLOOD ORDERAB LES Final Result [facility] [address] [place] [phone] * US Abdomen Limited (12/12/2024 10:41 AM EST) Anatomical Region Laterality Modality Abdomen Ultrasound 12/12/2024 10:4 1 AM EST Narrative 12/12/2024 11:38 AM EST [address] [address] Ultrasound Report Signed Patient: Catalina Wood MR#: [id number] : 1985 Acct:[id number] Age/Sex: 39 / F ADM Date: 12/12/24 Loc: HO.US Attending Dr: Roberta Acuna MD Ordering Physician: Roberta Burroughs MD Date of Service: 12/12/24 Procedure(s): US abdomen limited Accession Number(s): [id number] cc: Roberta Burroughs MD Reason for Exam: [...] 12/12/24 1135 DD/ 1041 TD/TT: 12/12/24 1102 Zoo Caretaker: BRIANNE Procedure Note Donotuseinterpreter, Image - 12/12/[address] [address] Ultrasound Report Signed Patient: Catalina Wood#: [id number] : 1985Acct:[id number] Age/Sex: 39 / FADM Date: 12/12/24 Loc: HO.US Attending Dr: Roberta Acuna MD Ordering Physician: Roberta Burroughs MD Date of Service: 12/12/24 Procedure(s): US abdomen limited Accession Number(s): [id number] cc: Roberta Burroughs MD Reason for Exam: [...] 12/12/2024 11:35 AM [facility] Dictated By: Leeann Finn MD Signed By: <Electronically signed by Leeann Finn MD in OV> 12/12/24 1135 DD/ 1041 TD/TT: 12/12/24 1102 Zoo Caretaker: BRIANNE Roberta Acuna MD IMG US PROCEDURES Final Result * Influenza B (ID NOW Rapid Molecular) (10/18/2024 9:17 AM EDT) Influenza B Negative Negative, Indeterminate [facility] Swab 10/18/2024 9:17 AM EDT Gabe Cunha MD POINT OF CARE TEST ENTER/EDIT OR DERABLES Final Result Performing Organization Address [facility] Co de Phone Number [facility] [address] [place] [address] [phone] * Influenza A (ID NOW Rapid Molecular) (10/18/2024 9:17 AM EDT) Influenza A Negative Negative, Indeterminate [facility] Swab 10/18/2024 9:17 AM EDT Gabe Cunha MD POINT OF CARE TEST ENTER/EDIT OR DERABLES Final Result Performing Organization Address [facility]/ZIP Co de Phone Number [facility] [address] [place] [address] [phone] * POCT Rapid COVID Ag (10/18/2024 9:17 AM EDT) Rapid COVID Ag Negative [facility] Swab 10/18/2024 9:17 AM EDT us Gabe Cuhna MD POINT OF CARE TEST ENTER/EDIT OR DERABLES Final Result Performing Organization Address [facility] Co de Phone Number [facility] [address] [place] [phone] * POCT rapid strep A manually resulted (10/18/2024 9:17 AM EDT) Rapid Strep A Screen Negative Negative, None Detected [facility] Swab 10/18/2024 9:17 AM EDT Gabe Cunha MD POINT OF CARE TEST ENTER/EDIT OR DERABLES Final Result Performing Organization Address [facility] de Phone Number [facility] [address] [place] [address] [phone] * BI Mammogram Screening Tomosynthesis Bilateral (04/20/2024 3:25 PM EDT) Anatomical Region Laterality Modality Breast Bilateral Mammography 04/20/2024 3:25 PM EDT Narrative 04/29/2024 12:17 PM EDT [facility] [address] [place] [address] Mammography Report Signed Patient: Catalina Wood MR#: [id number] : 1985 Acct:[id number] Age/Sex: 38 / F ADM Date: 04/20/24 Loc: NURY Attending Dr: Roberta Acuna MD Ordering Physician: Roberta Burroughs MD Re sults: 1Negative Date of Service: 04/20/24 Follow Up: 1 Year From Orig inal Mammogram Procedure(s): MM tomosynthesis screening BI Accession Number(s): [id number] cc: Roberta Burroughs MD EXAMINATION: MM SCREENING [...] 04/29/24 1214 DD/ 1525 TD/TT: 04/20/24 1538 Zoo Caretaker: Procedure Note Donotuseinterpreter, Image - 04/29/2024 [facility] [address] [place] [address] Mammography Report Signed Patient: Catalina Wood#: [id number] : 1985Acct:[id number] Age/Sex: 38 / FADM Date: 04/20/24 Loc: NURY Attending Dr: Roberta Acuna MD Ordering Physician: Roberta Burroughs sults: 1Negative Date of Service: 04/20/24Follow Up: 1 Year From Orig inal Mammogram Procedure(s): MM tomosynthesis screening BI Accession Number(s): [id number] cc: Roberta Burroughs MD EXAMINATION: MM SCREENING [...] 04/29/24 1214 DD/ 1525 TD/TT: 04/20/24 1538 Zoo Caretaker: Roberta Acuna MD IMG BI PROCEDURES Edited Result - Final * Pap Smear (01/12/2023 9:41 AM EST) 01/12/2023 9:41 AM EST 01/13/2023 12:30 PM EST [facility] - 01/18/2023 1:41 PM EST ----- ------- Name: Catalina Wood Age/Sex: 37/F : 1985 Unit#: [id number] Attend Dr: Sparkle Maldonado Re01/12/23 Status: DEP REF Location: [facility] Disch: ----- ------- SPEC : [id number] RECD: 01/13/23-1230 STATUS: ROSSANA GARIBAY NUM: [id number] BALJINDER: 01/12/[address] [facility] [address]: Sparkle Maldonado ENTERED: 01/13/23-1503 SP TYPE: Pap Smr OTHR DR: Vida Van ORDERED: Pap Smear Interpretation Satisfactory for evaluation. Mild inflammation. Hyperkeratosis noted. Negative for intraepithelial lesion or malignancy. HPV mRNA E6/E7: NOT DETECTED This assay detects E6/E7 viral messenger RNA (mRNA) from 14 high-risk HPV types (16, 18, 31, 33, 35, 39, 45, 51, 52, 56, 58, 59, 66, 68) HPV testing performed by [employer], [place], [place]. See reference laboratory portion of the EMR for entire report. Clinical Information LMP: 12/13/22 Previous PAP test: 2018, WNL Material Received ThinPrep-Cervical Copies To: Sparkle Maldonado[address] [place], [place] [phone] Vida Van [facility] [address] [place] [address] ----- ------- Signed (signature on file) ERICKA Roa ([facility]) 01/18/23 1341 ----- ------- END OF REPORT us Generic External Data Provider LAB CYTOLOGY DINAE LEXI Final Result [facility] [address] [place] [phone] from Last 3 Months or Most Recently Relevant to Health Maintenance Insurance Care Teams Basic Combatant Swimmer Relationship Specialty Start Date End Date Roberta Burroughs MD [address] [place] [address] PCP - General Internal Medicine 08/05/22 Gonsalo Unger FNP [address] [place] [address] Nurse Practitioner Family Medicine 12/28/22
--- OUTSIDE RECORDS SUMMARY | 2025-01-17 22:08 | XMS_ITS | Encounter Summary ---
Author Organization [email or web address] Address [address] [facility] 7t [place] [address] Care Team Providers Care Light Bulb Assembler Name Role Phone Roberta Burroughs MD Primary Care Pro vider Gonsalo Unger Unavailable Unavailable Reason for Visit * Reason Onset Date Comments Error (VOID this visit) 01/12/2025 Encounter Details Date Type Department Care Team (Late st Contact Info) Description 01/12/2025 Telephone [facility] [address] [place], [place] [phone] Kortney Reyes, ANP [address] [place], [place] [phone] Error (VOID this visit) Social History Tobacco Use Types Packs/Day Years [...] Description 03/02/2025 2:00 PM EST Office Visit [facility] [address] [place] [phone] Roberta Burroughs MD [address] [place] [address] documented as of this encounter Visit Diagnoses Not on filedocumented in this encounter Additional Health Concerns Assessment Noted Time PHQ-9 Depression Total Score: 16 025 3:33 PM EDT documented as of this encounter Care Teams Light Bulb Assembler Relationship Specialty Start Date End Date Roberta Burroughs MD [address] [place] [address] PCP - General Internal Medicine 08/05/22 Gonsalo Unger FNP [address] [place] [address] Nurse Practitioner Family Medicine 12/28/22 documented as of this encounter
--- OUTSIDE RECORDS SUMMARY | 2025-01-17 22:08 | XMS_ITS | Clinical Summary ---
Author Organization [facility] ity Address [address] [place] [address] Care Team Providers Care Box Lining Machine Operator Name Role Phone Gonsalo Unger NP Primary [...] age to complete this topic Care Teams Box Lining Machine Operator Relationship Specialty Start Date End Date Gonsalo Unger NP [address] [place] [address] PCP - General Internal Medicine 06/24/16
--- OUTSIDE RECORDS SUMMARY | 2025-01-17 22:08 | XMS_ITS | Encounter Summary ---
Author Organization [employer] Address [address] [place] [address] 7 [place] [address] Care Team Providers Care Assayer Name Role Phone oRberta Burroughs MD Primary Care Pro vider Gonsalo Unger Unavailable Unavailable Reason for Visit * Reason Onset Date Comments Lab results faxed to Endocrine 01/15/2025 Encounter Details Date Type Department Care Team ([facility] Contact Info) Description 01/15/2025 Telephone [facility] [address] [place], [place] [phone] Roberta Burroughs MD [address] [place], [place] [phone] Lab results faxed to Endocrine Social History Tobacco Use Types Packs/Day Years [...] encounter Miscellaneous Notes * Telephone Encounter - Abbie Cancino [place] - 01/15/2025 9:00 AM EST TSH and T4 results have been faxed to Endocrinology at [phone] documented in this encounter Plan of Treatment Upcoming Encounters Date Type Department Care Team (Late st Contact Info) Description 03/02/2025 2:00 PM EST Office Visit [facility]INE [address] [place] [phone] Roberta Burroughs MD [address] [place] [address] documented as of this encounter Visit Diagnoses Not on filedocumented in this encounter Additional Health Concerns Assessment Noted Time PHQ-9 Depression Total Score: 16 025 3:33 PM EDT documented as of this encounter Care Teams Assayer Relationship Specialty Start Date End Date Roberta Burroughs MD [address] [place] [address] PCP - General Internal Medicine 08/05/22 Gonsalo Unger FNP [address] [place] [address] Nurse Practitioner Family Medicine 12/28/22 documented as of this encounter
--- OUTSIDE RECORDS SUMMARY | 2025-01-17 22:08 | XMS_ITS | Encounter Summary ---
Author Organization [employer] Address [address] [facility] 7t [place] [address] Care Team Providers Care Environmental Manager Name Role Phone Roberta Burroughs MD Primary Care Pro vider Gonsalo Unger Unavailable Unavailable Reason for Visit * Reason Comments Med Refill Encounter Details Date Type Department Care Team (Late st Contact Info) Description 08/11/2023 Refill [facility] [address] [place] [address] Gonsalo Unger FNP Anxious depression Social History [...] 03/02/2025 2:00 PM EST Office Visit [facility] [address] [place] [address] Roberta Burroughs MD [address] [place] [address] documented as of this encounter 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
--- OUTSIDE RECORDS SUMMARY | 2025-01-17 22:08 | XMS_ITS | Encounter Summary ---
Author Organization [employer] Address [address] [facility] 7t [place] [address] Care Team Providers Care Lap Hand Tool Name Role Phone Roberta Burroughs MD Primary Care Pro vider Gonsalo Unger Unavailable Unavailable Reason for Visit * Reason Comments Med Refill Encounter Details Date Type Department Care Team (Late st Contact Info) Description 09/18/2024 Refill [facility] 230 [place], [place] [phone] Name, MD Derek [address] [place] [phone] Cobalamin deficiency Social History Tobacco Use Types [...] Description 03/02/2025 2:00 PM EST Office Visit [facility] [address] [place] [phone] Roberta Burroughs MD [address] [place] [address] documented as of this encounter Visit Diagnoses Diagnosis Cobalamin deficiency Other B-complex deficiencies documented in this encounter Additional Health Concerns Assessment Noted Time PHQ-9 Depression Total Score: 17 024 11:32 AM EDT documented as of this encounter Care Teams Lap Hand Tool Relationship Specialty Start Date End Date Roberta Burroughs MD [address] [place] [address] PCP - General Internal Medicine 08/05/22 Gonsalo Unger FNP [address] [place] [phone] Nurse Practitioner Family Medicine 12/28/22 documented as of this encounter
--- OUTSIDE RECORDS SUMMARY | 2025-01-17 22:08 | XMS_ITS | Encounter Summary ---
Author Organization [employer] Address [address] [place] [address] 7 [place] [address] Care Team Providers Care Formal Wear Rental Clerk Name Role Phone Roberta Burroughs MD Primary Care Pro vider Gonsalo Unger Unavailable Unavailable Reason for Visit * Reason Onset Date Comments Results 01/05/2025 Encounter Details Date Type Department Care Team ([facility] st Contact Info) Description 01/05/2025 Results Follow-Up [facility] [address] [place] [address] Roberta Burroughs MD [address] [place] [address] US Abdomen Limited, CBC auto differential, Hemoglobin A1c, Additional followed-up results: 4 Social History Tobacco Use Types Packs/Day Years [...] Telephone Encounter - Мария Bello [place] - 01/12/2025 10:38 AM EST T/c-Clinical Auditor Left Voice Mail to call back to inform of the following message. advise pt to increase her iron to daily from 2 times a week and to take it w vit C 1 tab a day for slight worse anemia sent today to her pharmacy Thanks * Telephone Encounter - Мария Bello [place] - 01/12/2025 10:38 AM EST ----- Message from Roberta Acuna MD sent at 01/11/2025 2:37 PM EST ----- Please call patient to advise to come to already scheduled apt with me to go over abnormal labs ANDPLEASE advise pt to increase her iron to daily from 2 times a week and to take it w vit C 1 tab a day for slight worse anemia sent today to her pharmacy Thanks ----- Message ----- From: Interface, Lab Results In Sent: 01/11/2025 11:21 AM EST To: Roberta Acuna MD * Result [...] [facility] [address] [place] [address] Roberta Burroughs MD [address] [place] [address] documented as of this encounter Visit Diagnoses Not on filedocumented in this encounter Additional Health Concerns Assessment Noted Time PHQ-9 Depression Total Score: 16 025 3:33 PM EDT documented as of this encounter Care Teams Formal Wear Rental Clerk Relationship Specialty Start Date End Date Roberta Burroughs MD [address] [place] [address] PCP - General Internal Medicine 08/05/22 Gonsalo Unger FNP [address] [place] [address] Nurse Practitioner Family Medicine 12/28/22 documented as of this encounter
--- OUTSIDE RECORDS SUMMARY | 2025-01-17 22:08 | XMS_ITS | Encounter Summary ---
Author Organization [employer] Address [address] [place] [address] 7 [place] [address] Care Team Providers Care Positive Printer Operator Name Role Phone Roberta Burroughs MD Primary Care Pro vider Gonsalo Unger Unavailable Unavailable Reason for Visit * Reason Onset Date Comments Prior Authorization 08/02/2024 Encounter Details Date Type Department Care Team ([facility] st Contact Info) Description 08/02/2024 Telephone [facility] [address] [place] [address] Roberta Burroughs MD [address] [place] [address] Prior Authorization Social History Tobacco Use Types [...] Description 03/02/2025 2:00 PM EST Office Visit [facility] [address] [place] [address] Roberta Burroughs MD [address] [place] [address] documented as of this encounter Visit Diagnoses Not on filedocumented in this encounter Additional Health Concerns Assessment Noted Time PHQ-9 Depression Total Score: 17 024 11:32 AM EDT documented as of this encounter Care Teams Positive Printer Operator Relationship Specialty Start Date End Date Roberta Burroughs MD [address] [place] [address] PCP - General Internal Medicine 08/05/22 Gonsalo Unger FNP [address] [place] [address] Nurse Practitioner Family Medicine 12/28/22 documented as of this encounter
--- OUTSIDE RECORDS SUMMARY | 2025-01-17 22:08 | XMS_ITS | Encounter Summary ---
Author Organization [employer] Address [address] [place] [address] 7 [place] [address] Care Team Providers Care Instrument Technician Helper Name Role Phone Vida Van Primary Care Provider Roberta Ritchie MD Primary Care Pro vider Gonsalo Unger Unavailable Unavailable Encounter Details Date Type Department Care Team ([facility] Contact Info) Description 02/04/2022 Telephone [facility] [address] [place] [phone] Vida Van FNP Social History Tobacco Use [...] Description 03/02/2025 2:00 PM EST Office Visit [facility] [address] [place] [address] Roberta Burroughs MD [address] [place], [place] [phone] documented as of this encounter Visit Diagnoses Not on filedocumented in this encounter Additional Health Concerns Assessment Noted Time PHQ-9 Depression Total Score: 20 022 2:35 PM EST documented as of this encounter Care Teams Instrument Technician Helper Relationship Specialty Start Date End Date Vida Van FNP PCP - General Family Medicine 10/06/21 08/04/22 Roberta Burroughs MD [address] [place] [address] PCP - General Internal Medicine 08/05/22 Gonsalo Unger FNP [address] [place] [address] Nurse Practitioner Family Medicine 12/28/22 documented as of this encounter
--- OUTSIDE RECORDS SUMMARY | 2025-01-17 22:08 | XMS_ITS | Encounter Summary ---
Author Organization [employer] Address [address] [place] [address] 7t [place] [address] Care Team Providers Care Lead Front Desk Agent Name Role Phone Roberta Burroughs MD Primary Care Pro vider Gonsalo Unger Unavailable Unavailable Reason for Visit * Reason Comments Med Refill Encounter Details Date Type Department Care Team (Late st Contact Info) Description 10/31/2024 Refill [facility] [address] [place] [address] [phone] Roberta Burroughs MD [address] [place], [place] [phone] Class 3 severe obesity due to excess [...] Description 03/02/2025 2:00 PM EST Office Visit [facility] [address] [place] [phone] Roberta Burroughs MD [address] [place] [address] documented as of this encounter Visit Diagnoses Diagnosis Class 3 severe obesity due to excess calories with serious comorbidity and body mass index (BMI) of 40.0 to 44.9 in adult (HCC) documented in this encounter Additional Health Concerns Assessment Noted Time PHQ-9 Depression Total Score: 16 025 3:33 PM EDT documented as of this encounter Care Teams Lead Front Desk Agent Relationship Specialty Start Date End Date Roberta Burroughs MD [address] [place] [address] PCP - General Internal Medicine 08/05/22 Gonsalo Unger FNP [address] [place] [address] Nurse Practitioner Family Medicine 12/28/22 documented as of this encounter
--- OUTSIDE RECORDS SUMMARY | 2025-01-17 22:08 | XMS_ITS | Continuity of Care Document ---
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 We discussed the findings today which also included mild LPR noted on flex laryngoscopy. We discussed pathophysiology of vocal fold hemorrhage and this is the likely cause of her symptoms including throat fullness and globus sensation. We discussed modifications including avoidance of throat clearing, rather double swallow technique as well as adequate hydration and voice rest. -Increase hydration -Voice Rest for 1 week -Prednisone taper and omeprazole ordered -3-4 week RV Findings today were consistent with LPR or laryngopharyngeal reflux. We discussed lifestyle modifications, including avoiding caffeinated, spicy, or acidic foods, elevating the head of the bed during sleep, and avoiding eating before lying flat. The patient can also trial alginate therapy with either Gaviscon or Reflux Gormet prn. The patient will also start taking acid-reducing medication 30 minutes before meals: 40mg PPI Daily. If symptoms persist would recommend evaluation by a GI specialist. [email or web address] Not available 10/30/2024 12:39:10 Plan of Treatment Reminders Order Date Submit Date Provider Last Modified By Organization Details Last Modified Time Details Appointments None recorded. Lab None recorded. Referral None recorded. Procedures None recorded. Surgeries None recorded. Imaging None recorded. Medication Orders prednisone 20 mg tablet 2024 025 [facility], [address] [place], [place], [id number], 5 15:07:52 omeprazole 40 mg capsule,del ayed release 2024 025 [facility], [address], [place], [id number], 5 14:33:12 Patient TargetsNo targets recorded. Patient Instructions Encounter Date Encounter Id Patient Instructions Last Modified By Organization Details Last Modified Time 10/30/2024 [id number] laryngopharyngea l reflux education [email or web address] Not available 10/30/2024 11:46:53 Reason for Referral None Reported. Problems Name Problem SNOMED Code Status Onset Date Resolution Date Notes Provider Name and Address Organization Details Recorded Time Deviated nasal septum 193167919 Active 2018 Deviated nasal septum; Note: Date Diagnosed : 07/05/2018 11:43 AM (J34.2) Not Available [facility] 4 03:13:58 Nasal congestio n 96476184 Active 2018 Nasal congestio n; Note: Date Diagnosed : 07/05/2018 11:43 AM (R09.81) Not Available [facility] 4 03:13:58 Headache 66582796 Active 2019 Facial pain NOS; Note: Date Diagnosed : 02/10/2019 1:37 PM (R51) Not Available [facility] 4 03:13:58 Otalgia of right ear 0975985069 Active 2019 Otalgia, right ear; Note: Date Diagnosed : 12/11/2019 2:59 PM (H92.01) Not Available [facility] 4 03:13:59 Acute sinusitis 64456960 Active 2020 Acute sinusitis , unspecifi ed; Note: Date Diagnosed : 05/10/2020 3:30 PM (J01.90) Not Available [facility] 4 03:13:59 Chronic rhinitis 39691485 Active 2020 Chronic rhinitis; Note: Date Diagnosed : 01/09/2021 3:05 PM (J31.0) Not Available [facility] 4 03:13:58 Polyp of nasal cavity 751702216 Active 2021 Polyp of nasal cavity; Note: Date Diagnosed : 03/13/2021 11:28 AM (J33.0) Not Available [facility] 4 03:13:57 Allergic rhinitis 67993741 Active 2023 Allergic rhinitis: Due to other allergen; Note: Date Diagnosed : 02/12/2023 11:57 AM (477.8) Note: Date Diagnosed : 02/12/2023 11:57 AM (477.8) Allergi c rhinitis: Due to other allergen; Note: Date Diagnosed : 3 9:27 AM (477.8) Note: Date Diagnosed : 9:27 AM (477.8) ; Start Date : Allergi c rhinitis: Due to other allergen; Note: Date Diagnosed : 10:29 AM (477.8) Note: Date Diagnosed : [...] other allergen; Note: Date Diagnosed : 3 2:21 PM (477.8) Note: Date Diagnosed : 3 2:21 PM (477.8) ; Start Date : 3 Allergi c rhinitis: Due to other allergen; Note: Date Diagnosed : 3 2:00 PM (477.8) Note: Date Diagnosed : [...] Not Available [facility] 4 01:24:27 Perennial allergic rhinitis 630997772 Active 2023 LEANNA ACEVEDO, RMA [address], [place], [address] , [facility] 4 11:04:09 Impacted cerumen in right ear [id number] 85469 Active 2023 ORVILLE PURCELL MD [address] [facility] [place],[address], [place], [address] , [place] [facility] 4 11:08:25 Moderate persisten t asthma 438350280 Active 2024 SANDOR HOUSTON MD [address] [facility] [place] [address], [place], [place], [address] , 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 5 11:45:36 Viral upper respirato ry tract infection 304339222 Active 2024 Uzair Gutierrez DO [address] [facility],[place] [address], [place], [address] , [facility] 5 11:45:42 Laryngoph aryngeal reflux 742432661 Active 2024 Uzair Gutierrez DO [address] [facility],[address], [place], [address] , [place] [facility] 5 11:46:29 Gastroeso phageal reflux disease without esophagit is 260303980 Active 2024 Uzair Gutierrez DO [address] [facility],[place] [address], [place], [address] , [place] [facility] 11:46:29 Edema of larynx 73567514 Active 2024 Uzair Gutierrez, DO [address] [facility],[place] [address], [place], [address] , [place] [facility] 11:46:29 Disorder of vocal cord 34618766 Active 2024 Uzair Gutierrez DO [address] [facility],[place] [address], [place], [address] , [place] [facility] 11:40:36 Atrophy of vocal cord 350376420 Active 2024 Uzair Gutierrez, DO [address] [facility],[place] [address], [place], [address] , [place] [facility] 11:40:36 Problem Notes None recorded. Procedures Surgical History Date Name Laterality Status Provider Name and Address Organization Details Recorded Time 11/24/19 25 FOL_Reflux_DHL completed Uzair Gutierrez [address] [facility],[address], [address], [place] [facility] 11/23/2024 11:40:00 10/31/19 25 FOL_Reflux_DHL completed Uzair Gutierrez, 100 [facility],[address], [address], [place] [facility] 10/30/2024 12:38:51 09/29/19 25 Allergy Immunotherapy Injections completed LEANNA ACEVEDO Sergio [address] [facility],[address], [address], [place] [facility] 09/28/2024 14:10:25 07/28/19 25 Allergy Immunotherapy Injections completed CHASIDY OLIVIER RN [address] [facility],[address], [address], [place] [facility] 07/27/2024 15:55:54 07/08/19 25 Allergy Immunotherapy Injections completed BABS DUNCAN Sergio [address] [facility],[address], [address], [place] [facility] 07/07/2024 14:18:28 06/21/19 25 Allergy Immunotherapy Injections completed BABS DUNCAN, RMA [address], [place], [address], [place] [facility] 06/20/2024 13:53:08 06/15/19 25 Allergy Immunotherapy Injections completed BABS KEMPC, RMA [address], [place], [address], [place] [facility] 06/14/2024 15:55:16 06/10/19 25 Allergy Immunotherapy Injections completed CHASIDY OLIVIER RN [address] [facility], [place], [address], [place] [facility] 06/09/2024 12:17:16 06/01/19 25 Allergy Immunotherapy Injections completed KOURTNEY MANCINI [address], [place], [address], [place] [facility] 05/31/2024 13:30:20 05/25/19 25 Allergy Immunotherapy Injections completed BABS DUNCAN, RMA [address], [place], [address], [place] [facility] 05/24/2024 13:47:36 05/19/19 25 Allergy Immunotherapy Injections completed CHASIDY OLIVIER RN [address] [place] [address], [address], [place] [facility] 05/18/2024 15:41:18 05/13/19 25 Allergy Immunotherapy Injections completed BABS DUNCAN RMA [address], [place], [address], [place] [facility] 05/12/2024 13:54:46 05/06/19 25 Allergy Immunotherapy Injections completed KOURTNEY MANCINI [address], [place], [address], [place] [facility] 05/05/2024 14:51:01 04/28/19 25 Allergy Immunotherapy Injections completed KOURTNEY MANCINI [address], [place], [address], [place] [facility] 04/27/2024 15:32:24 04/27/19 25 JMSNasal/Sinus Endoscopy completed SANDOR GREENBERG MD [address] [place] [address], [address], [place] [facility] 04/26/2024 11:34:55 04/22/19 25 Allergy Immunotherapy Injections completed BABS DUNCAN, RMA [address], [place], [address], [place] [facility] 04/21/2024 15:25:14 04/15/19 25 Allergy Immunotherapy Injections completed BABS DUNCAN, RMA [address] [place] [address], [address], [place] [facility] 04/14/2024 12:13:53 04/07/19 25 Allergy Immunotherapy Injections completed CHASIDY OLIVIER RN [address] [facility] [place],[address] [place] [address], [address], [place] [facility] 04/07/2024 15:28:25 03/31/19 25 Allergy Immunotherapy Injections completed CHASIDY OLIVIER RN [address] [place] [address], [address], [place] [facility] 03/31/2024 13:19:41 03/23/19 25 Allergy Immunotherapy Injections completed BABS DUNCAN, RMA [address] [place] [address], [address], [place] [facility] 03/23/2024 15:32:40 03/10/19 25 Allergy Immunotherapy Injections completed CHASIDY OLIVIER RN [address] [place] [address], [address], [place] [facility] 03/10/2024 12:05:52 03/02/19 25 Allergy Immunotherapy Injections completed KOURTNEY MANCINI [address] [place] [address], [address], [place] [facility] 03/02/2024 12:02:23 02/23/19 25 Allergy Immunotherapy Injections completed KOURTNEY MANCINI [address] [facility] [address], [place], [address], [place] [facility] 02/24/2024 11:30:40 02/14/19 25 Allergy Immunotherapy Injections completed BABS DUNCAN, RMA [address], [place], [address], [place] [facility] 02/15/2024 11:08:53 02/09/19 25 Allergy Immunotherapy Injections completed BABS KEMPC, RMA [address], [place], [address], [place] [facility] 02/10/2024 14:28:06 01/27/20 24 Allergy Immunotherapy Injections completed CHASIDY OLIVIER RN [address], [place], [address], [place] [facility] 01/27/2024 09:07:49 01/20/20 24 Allergy Immunotherapy Injections completed LEANNA ACEVEDO RMA [address] [place] [address], [address], [place] [facility] 01/20/2024 13:36:07 01/13/20 24 Allergy Immunotherapy Injections completed BABS DUNCAN, RMA [address], [place], [address], [place] [facility] 01/13/2024 14:30:51 01/05/20 24 Allergy Immunotherapy Injections completed BABS DUNCAN, RMA [address], [place], [address], [place] [facility] 01/05/2024 13:22:16 12/30/19 24 Allergy Immunotherapy Injections completed LEANNA ACEEVDO RMA [address], [place], [address], [place] [facility] 12/30/2023 12:06:22 12/23/19 24 Allergy Immunotherapy Injections completed BABS DUNCAN RMA [address], [place], [address], [place] [facility] 12/23/2023 11:41:23 12/16/19 24 Allergy Immunotherapy Injections completed LEANNA ACEVEDO RMA [address], [place], [address], [place] [facility] 12/16/2023 11:21:05 12/09/19 24 Allergy Immunotherapy Injections completed BABS DUNCAN RMA [address], [place], [address], [place] [facility] 12/09/2023 11:41:30 11/30/19 24 Allergy Immunotherapy Injections completed CHASIDY OLIVIER RN [address], [place], [address], [place] [facility] 11/30/2023 11:29:17 11/25/19 24 Allergy Immunotherapy Injections completed BABS DUNCAN RMA [address], [place], [address], [place] [facility] 11/25/2023 11:41:02 11/18/19 24 Allergy Immunotherapy Injections completed KOURTNEY MANCINI [address] [facility], [place], [address], [place] [facility] 11/18/2023 11:51:54 11/11/19 24 Allergy Immunotherapy Injections completed CHASIDY OLIVIER RN [address] [facility] [address] [address] [facility], [place], [address], [place] [facility] 11/11/2023 09:15:07 11/05/19 24 Allergy Immunotherapy Injections completed KOURTNEY MANCINI [address] [place] [address], [address], [place] [facility] 11/05/2023 12:14:13 10/28/19 24 Allergy Immunotherapy Injections completed BABS DUNCAN RMA [address], [place], [address], [place] [facility] 10/28/2023 14:45:57 10/21/19 24 Allergy Immunotherapy Injections completed VICTORIANO MANCINIA [address], [place], [address], [place] [facility] 10/21/2023 11:41:17 10/08/19 24 Allergy Immunotherapy Injections completed BABS DUNCAN RMA [address], [place], [address], [place] [facility] 10/08/2023 11:33:35 10/01/19 24 Allergy Immunotherapy Injections completed KOURTNEY MANCINI [address], [place], [address], [place] [facility] 10/01/2023 10:32:59 09/23/19 24 Allergy Immunotherapy Injections completed KOURTNEY MANCINI [address], [place], [address], [place] [facility] 09/23/2023 13:46:52 09/16/19 24 Allergy Immunotherapy Injections completed BABS DUNCAN RMSergio [address], [place], [address], [place] [facility] 09/16/2023 14:07:22 09/09/19 24 Allergy Immunotherapy Injections completed CHASIDY OLIVIER RN [address] [place] [address], [address], [place] [facility] 09/09/2023 12:03:04 09/02/19 24 Allergy Immunotherapy Injections completed BABS DUNCAN RMA [address] [place] [address], [address], [place] [facility] 09/02/2023 11:46:51 08/26/19 24 Allergy Immunotherapy Injections completed BABS DUNCAN RMA [address], [place], [address], [place] [facility] 08/26/2023 13:11:56 08/19/19 24 Allergy Immunotherapy Injections completed CHASIDY OLIVIER RN [address], [place], [address], [place] [facility] 08/19/2023 14:02:06 08/10/19 24 Allergy Immunotherapy Injections completed BABS DUNCAN RMA [address], [place], [address], [place] [facility] 08/10/2023 15:12:45 08/04/19 24 Allergy Immunotherapy Injections completed BABS DUNCAN RMA [address] [place] [address], [address], [facility] [place] 08/04/2023 12:15:15 08/04/19 24 Cerumen removal without microscope completed ORVILLE PURCELL MD [address] [facility] [place],[address] [place] [address], [address], [facility] 08/04/2023 11:08:52 07/28/19 24 Allergy Immunotherapy Injections completed LEANNA ACEVEDO [facility] [address] [facility],[address] [place] [address], [address], [facility] 07/28/2023 15:01:20 07/20/19 24 Allergy Immunotherapy Injections completed BABS DUNCAN [facility] [address] [facility],[address], [address], [facility] 07/20/2023 14:23:42 07/13/19 24 Allergy Immunotherapy Injections completed LEANNA ACEVEDO [address], [address], [facility] 07/13/2023 13:59:55 07/06/19 24 Allergy Immunotherapy Injections completed LEANNA ACEVEDO [address], [address], [facility] 07/06/2023 12:17:36 06/29/19 24 Allergy Immunotherapy Injections completed LEANNA ACEVEDO [address], [address], [facility] 06/29/2023 11:04:40 Imaging Results None recorded. Procedure Notes None recorded. Medical Equipment None Reported. Allergies No known drug allergies Medications Name Sig Start Date Stop Date Status Note LastModified by Organization Details LastModified Time levothyro xine 137 mcg tablet TAKE 1 TABLET BY MOUTH EVERY DAY active Not Available Not Available No t Available prednison e 10 mg tablet Take as directed 04/26 completed Medicati on ID: [id number] D uration Value: 12 Brand Name: predniso [...] Not Available ketoconaz ole 2 % shampoo 11/23 completed Medicati on ID: [id number] B rand Name: ketocona zole Sen d Method: E-Prescr ibed Sub s Allowed: subs OK Speci al Instruct ion: APPLY TO HAIR, LEAVE FOR 5 MINUTES THEN RINSE DIRECTED . USE 2-3 TIMES EVERY WEEK. Me dication GenericN lissette: ketocona zole Not Available Not Available Not Available trazodone 50 mg tablet TAKE 1 TABLET BY MOUTH AT BEDTIME 04/26 completed Not Available Not Available Not Available cetirizin e 10 mg tablet TAKE 1 TABLET BY MOUTH ONCE DAILY NEEDED FOR ALLERGY active Not Available Not Available No t Available ibuprofen 800 mg tablet TAKE 1 TABLET BY MOUTH EVERY DAY NEEDED FOR MILD PAIN active Not Available Not Available No t Available fluconazo le 150 mg tablet TAKE 1 TABLET BY MOUTH ONCE 04/26 completed Not Available Not Available Not Available ketotifen 0.025 % (0.035 %) eye drops 06/16 completed Medicati on ID: [id number] B rand Name: ketotife n fumarate Send Method: E-Prescr ibed Sub s Allowed: subs OK Speci al Instruct ion: PLACE 1 DROP INTO THE AFFECTED EYE(S) TWICE DAILY Me dication GenericN lissette: ketotife n fumarate Not Available Not Available Not Available metronida zole 0.75 % (37.5 mg/5 gram) vaginal gel INSERT 1 APPLICAT ORFUL VAGINALL Y AT BEDTIME FOR 5 NIGHTS 04/26 completed Not Available Not Available Not Available prednison e 20 mg tablet TAKE 3 TABLETS DAILY FOR 4 DAYS, TAKE 2 TABLETS DAILY FOR 4 DAYS, TAKE 1 TABLET DAILY FOR 4 DAYS, TAKE 1/2 TABLET DAILY FOR 4 DAYS 11/23 completed Not Available Not Available Not Available clonazepa m 0.5 mg tablet TAKE 1 TABLET BY MOUTH EVERY DAY NEEDED FOR SEVERE ANXIETY active Not Available Not Available No t Available cromolyn 4 % eye drops 11/23 completed Medicati on ID: [id number] B rand Name: dany Send Method: E-Prescr ibed Sub s Allowed: subs OK Speci al Instruct ion: INSTILL 1 DROP 4 TIMES A DAY INTO AFFECTED EYE NEEDED M edicatishonna nGeneric Name: dany Not Available Not Available Not Available sumatript an 50 mg tablet TAKE 1 TAB BY MOUTH AT ONSET OF HEADACHE IF NO RELIEF MAY REPEAT 1 TAB AFTER AT LEAST 2 HRS BY MOUTH active Not Available Not Available No t Available cyanocoba santy (vit B-12) 1,000 mcg tablet TAKE 1 TABLET BY MOUTH ONCE DAILY active Not Available Not Available No t Available metronida zole 500 mg tablet TAKE 1 TABLET BY MOUTH TWICE DAILY FOR 7 DAYS. AVOID ALCOHOLI C BEVERAGE S WHILE TAKING. 04/26 completed Not Available Not Available Not Available valacyclo vir 500 mg tablet TAKE 1 TABLET BY MOUTH EVERY DAY active Not Available Not Available No t Available omeprazol e 40 mg capsule,d elayed release TAKE 1 CAPSULE BY MOUTH EVERY DAY 30 MINUTES BEFORE A MEAL active Not Available Not Available No t Available acetamino phen 500 mg tablet TAKE 2 TABLETS BY MOUTH EVERY 6 HOURS NEEDED FOR PAIN OR FEVER active Not Available Not Available No t Available propranol ol 10 mg tablet TAKE 1 TABLET BY MOUTH TWICE DAILY NEEDED FOR ANXIETY active Not Available Not Available No t Available ofloxacin 0.3 % ear drops Apply 4 drop into right ear twice a day 04/26 completed Medicati on ID: [id number] D uration Value: 7 Brand Name: ofloxaci n Send Method: E-Prescr ibed Sub s Allowed: subs OK Azar al Instruct ion: x 7 days Med icationG enericNa me: ofloxaci n Not Available Not Available Not Available Deep Sea Nasal 0.65 % spray aerosol INSTILL 1 SPRAY IN EACH NOSTRIL ONCE DAILY NEEDED FOR CONGESTI ON 11/23 completed Not Available Not Available Not Available amitripty line 25 mg tablet TAKE 2 TABLETS BY MOUTH EVERY DAY AT BEDTIME active Not Available Not Available No t Available lorazepam 0.5 mg tablet 03/13 completed Medicati on ID: [id number] D uration Value: 15 Brand Name: lorazepa m Send Method: E-Prescr ibed Sub s Allowed: subs OK Speci al Instruct ion: TAKE 1 TABLET TWICE DAILY NEEDED M edicatio nGeneric Name: lorazepa m Not Available Not Available Not Available cyanocoba santy (vit B-12) 500 mcg tablet 06/16 completed Medicati on ID: [id number] B rand Name: cyanocob alamin (vitamin B-12) [...] DO NOT BREAK, CRUSH, DISSOLVE OR CHEW. 04/26 completed Not Available Not Available Not Available erythromy harinder 5 mg/gram (0.5 %) eye ointment APPLY 1/2 INCH RIBBON INTO THE AFFECTED EYE(S) FOUR TIMES DAILY FOR 7 DAYS 10/27 completed Not Available Not Available Not Available acyclovir 5 % topical ointment APPLY TOPICALL Y SIX TIMES DAILY FOR 7 DAYS 11/23 completed Not Available Not Available Not Available clotrimaz ole-betam ethasone 1 %-0.05 % topical cream APPLY A THIN LAYER TOPICALL Y TWICE DAILY FOR ITCHING FOR 7 DAYS 11/23 completed Not Available Not Available Not Available triamcino lone acetonide 55 mcg nasal spray aerosol 06/16 completed Medicati on ID: [id number] B rand Name: triamcin olone acetonid e Send Method: E-Prescr ibed Sub s Allowed: subs OK Speci al Instruct ion: TAKE 2 SPRAYS INTO EACH NOSTRIL EVERY DAY Medi cationGe nericNam e: triamcin olone acetonid e Not Available Not Available Not Available lidocaine 5 % topical patch APPLY 1 PATCH TOPICALL Y TO SKIN, LEAVE ON FOR 12 HOURS AND OFF FOR 12 HOURS DIRECTED active Not Available Not Available No t Available levothyro xine 150 mcg tablet TAKE 1 TABLET BY MOUTH ONCE DAILY 11/23 completed Not Available Not Available Not Available Advair Diskus 250 mcg-50 mcg/dose powder for inhalatio n INHALE 1 PUFF BY MOUTH TWICE DAILY RINSE MOUTH AFTER USING. active Not Available Not Available No t Available docusate sodium 100 mg capsule TAKE 1 CAPSULE BY MOUTH TWICE DAILY IN THE MORNING AND AT BEDTIME NEEDED FOR CONSTIPA TION active Not Available Not Available No t Available gabapenti n 300 mg capsule TAKE 1 CAPSULE BY MOUTH EVERY DAY AT BEDTIME FOR PAIN 11/23 completed Not Available Not Available Not Available monteluka st 10 mg tablet TAKE 1 TABLET BY MOUTH EVERY DAY active Not Available Not Available No t Available azelastin e 137 mcg (0.1 %) nasal spray Inhale 2 spray twice a day as directed 11/23 completed Medicati on ID: [id number] D uration Value: 30 Prescri bed By Name: GABRIELLE Shi nd Name: meenu murrieta Send Method: E-Prescr ibed Sub s Allowed: subs OK Medic ationGen ericName : meenu murrieta Not Available Not Available Not Available epinephri ne 0.3 mg/0.3 mL injection , auto-inje ctor INJECT INTRAMUS CULARLY DIRECTED ON PACKAGE AND GO TO EMERGENC Y ROOM active Not Available Not Available No t Available ibuprofen 600 mg tablet TAKE 1 TABLET BY MOUTH EVERY 6 HOURS NEEDED FOR PAIN OR FEVER active Not Available Not Available No t Available Cipro HC 0.2 %-1 % ear drops,erin pension PLACE 3 DROPS IN EACH EAR TWICE DAILY FOR 7 DAYS 11/23 completed Not Available Not Available Not Available hydroxyzi ne HCl 10 mg tablet TAKE 1 TABLET BY MOUTH TWICE DAILY 11/23 completed Not Available Not Available Not Available ondansetr on 4 mg disintegr ating tablet TAKE 1 TABLET BY MOUTH EVERY DAY active Not Available Not Available No t Available fluticaso ne propionat e 50 mcg/actua tion nasal spray,erin pension INSTILL 1 SPRAY IN EACH NOSTRIL TWICE DAILY active Not Available Not Available No t Available cholecalc iferol (vitamin D3) 125 mcg (5,000 unit) capsule TAKE 1 CAPSULE BY MOUTH EVERY DAY active Not Available Not Available No t Available doxycycli ne hyclate 100 mg tablet 1 tablet 04/26 completed Medicati on ID: [id number] D uration Value: 14 Prescri bed By Name: GABRIELLE Tamez nd Name: doxycycl ine hyclate Send Method: E-Prescr ibed Sub s Allowed: subs OK Medic ationGen ericName : doxycycl ine hyclate Not Available Not Available Not Available amoxicill in 875 mg-potass ium clavulana te 125 mg tablet TAKE 1 TABLET BY MOUTH TWICE DAILY FOR 5 DAYS 11/23 completed Not Available Not Available Not Available Ventolin HFA 90 mcg/actua tion aerosol inhaler INHALE 2 PUFFS BY MOUTH EVERY 4 HOURS NEEDED FOR WHEEZING OR SHORTNES S OF BREATH active Not Available Not Available No t Available Fiber-Lax 625 mg tablet 03/13 completed Medicati on ID: [id number] B rand Name: Fiber-La x Send Method: [...] unit) capsule 03/13 completed Medicati on ID: [id number] D uration Value: 30 Brand Name: Vitamin [...] release TAKE 1 TABLET BY MOUTH EVERY MORNING active Not Available Not Available No t Available bupropion HCl XL 150 mg 24 hr tablet, extended release 04/26 completed Medicati on ID: [id number] B rand Name: bupropio n HCl Send Method: E-Prescr ibed Sub s Allowed: subs OK Speci al Instruct ion: TAKE 1 TABLET BY MOUTH ONCE DAILY Me dication GenericN lissette: bupropio n HCl Not Available Not Available Not Available topiramat e 50 mg tablet TAKE 1 TABLET BY MOUTH TWICE A DAY active Not Available Not Available No t Available fluocinol one 0.01 % scalp oil and shower cap APPLY A THIN LAYER TO DAMP SCALP, MASSAGE WELL AND COVER, LEAVE ON FOR 4 HOURS OR OVERNIGH T, THEN WASH OFF DIRECTED active Not Available Not Available No t Available chlorhexi dine gluconate 0.12 % mouthwash SWISH 20 ML IN MOUTH FOR 30 SECONDS THEN SPIT OUT TWICE DAILY IN THE MORNING AND IN THE EVENING AFTER BRUSHING TEETH AND MEALS. DO NOT RINSE / EAT / DRINK FOR 30 MINUTES. active Not Available Not Available No t Available cholecalc iferol (vitamin D3) 25 mcg (1,000 unit) tablet TAKE 1 TABLET BY MOUTH DAILY IN THE MORNING 04/26 completed Not Available Not Available Not Available ferrous gluconate 324 mg (38 mg iron) tablet TAKE 1 TABLET BY MOUTH TWICE A WEEK active Not Available Not Available No t Available Symbicort 80 mcg-4.5 mcg/actua tion HFA aerosol inhaler 11/23 completed Medicati on ID: [id number] B rand Name: Symbicor t Send Method: [...] APPLY 2 GRAMS TOPICALL Y TWICE DAILY IN THE MORNING AND AT BEDTIME NEEDED FOR MUSCLE SPASMS active Not Available Not Available No t Available Tirosint 137 mcg capsule TAKE 1 CAPSULE BY MOUTH EVERY DAY 11/23 completed Not Available Not Available Not Available Vitamin D3 50 mcg (2,000 unit) capsule TAKE 1 CAPSULE BY MOUTH ONCE DAILY 11/23 completed Not Available Not Available Not Available Vitamins Plus Low Iron 27 mg iron-1 mg tablet TAKE 1 TABLET BY MOUTH EVERY DAY 04/26 completed Not Available Not Available Not Available Compact Space Chamber USE WITH INHALER EVERY 4 HOURS NEEDED (for asthma) active Not Available Not Available No t Available Zepbound 10 mg/0.5 mL subcutane ous pen injector INJECT ONE PEN (=10MG) SUBCUTAN EOUSLY ONCE A WEEK DIRECTED 11/23 completed Not Available Not Available Not Available Zepbound 5 mg/0.5 mL subcutane ous pen injector INJECT ONE PEN (=5MG) SUBCUTAN EOUSLY ONCE A WEEK DIRECTED 11/23 completed Not Available Not Available Not Available Zepbound 2.5 mg/0.5 mL subcutane ous pen injector INJECT ONE PEN (=2.5MG) SUBCUTAN EOUSLY ONCE A WEEK DIRECTED 11/23 completed Not Available Not Available Not Available Zepbound 15 mg/0.5 mL subcutane ous pen injector INJECT ONE PEN (=15MG) SUBCUTAN EOUSLY ONCE A WEEK DIRECTED active Not Available Not Available No t Available Zepbound 12.5 mg/0.5 mL subcutane ous pen injector INJECT ONE PEN (=12.5MG ) SUBCUTAN EOUSLY ONCE A WEEK DIRECTED 11/23 completed Not Available Not Available Not Available Zepbound 7.5 mg/0.5 mL subcutane ous pen injector INJECT ONE PEN (=7.5MG) SUBCUTAN EOUSLY ONCE A WEEK DIRECTED 11/23 completed Not Available Not Available Not Available hong negron (weight loss) 04/26 completed Not Available Not Available Not Available Reguloid (psyllium husk) 3 gram/5.8 gram oral powder DISSOLVE 1 TEASPOON FUL (3 GRAMS) IN WATER AND TAKE BY MOUTH TWICE DAILY DIRECTED active Not Available Not Available No t Available Vitals Date Recorded Body height Body mass index (BMI) Body weight Provider Name and Address Organization Details Last Updated DateTime 10/30/2024 160.02 cm 39.9 kg/m2 285675.28 g Ella [place] [facility] 10/30/2024 11:16:17 Social History None recorded. Functional Status None recorded. Mental Status None recorded. Family History Nothing Reported. Medical History Condition Response Allergies/Hayfever Y Thyroid Problems Y Hypertension Y Asthma Y GERD/Reflux Y Gynecological HistoryNo gynecological history recorded. 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 [id number] Viral uppe r respiratory tract infection 937407565 J06.9 229682 Laryngopha ryngeal reflux 384995824 K21.9 [id number] Gastroesop hageal reflux disease without esophagitis 281788798 K21.9 597666 Edema of larynx 03867830 J38.4 75935 Health Concerns Section Related Observation LastModified by Organization Detai ls LastModified Time None Recorded Concern Status LastModified by Organization Details LastModified Time None Recorded Payers Encounter Date Sequence Insurance Name Policy Number Policy Monet Covered Member ID Monet Member ID Guarantor Name 10/30/2024 1 [place] [facility] [id number] Catalina Marrero Notes Date Note Type Note Provider Name and Address Organization Details Recorded Time 10/30/2024 text/html ROS as noted in the HPI Interval history: Patient has concerns with fairly new onset globus sensation and sticking sensation of throat. Per patient there was no inciting incident outside of prior vaccination where she developed a post viral URI. She still getting over this. She feels that her voice is off and she can barely speak as well. No known foreign body. This is very frustrating to her. Previously seen by Dr. Greenberg/Branden beavers: Allergy patient of Dr. Ramoser seen for an opinion regarding crusting and debris from the nose. She is also noted chronic shortness of breath and difficulty with exercise. No wheezing but recent use of albuterol. She is taking Advair and cetirizine. Has not been using azelastine Uzair Gutierrez DO [address] [place] [address], [id number], [facility] - [facility] 10/30/2024 12:39:19 OBGyn Episode No OBEpisode recorded.
--- OUTSIDE RECORDS SUMMARY | 2025-01-17 22:08 | XMS_ITS | Data Portability ---
Author Organization [place] - [facility], Allergy Address [address] [place] [address] Care Team Providers Care Creative Art Director Name Role Phone CRYSTAL SANCHEZ Primary Care Provider CRYSTAL SANCHEZ Primary Care Provider Assessment Encounter Date Assessment Date Assessment LastModified by Organization Details LastModified Time 07/07/2024 07/07/2024 Visit With: KOURTNEY Donald Use of Antihistamines: Yes If yes: Vial Test Change in medications: No If yes Increase in asthma symptoms If yes, inhaler use: Reaction to last injections: No If yes: Allergy Symptoms: Other: Missed: 1 week Dose Repeated Aware of Vial Test Notes: ale Not available 07/07/2024 14:18:41 07/27/2024 07/27/2024 Visit With: Demario Acevedo Use of Antihistamines: Yes If yes: Vial Test Change in medications: No If yes Increase in asthma symptoms No If yes, inhaler use: Reaction to last injections: No If yes: Allergy Symptoms: Other: Missed: 2 weeks Dose Repeated Aware of Vial Test Aware: Notes: [email or web address] Not available 07/27/2024 15:56:16 09/28/2024 09/28/2024 Visit With: Use of Antihistamines: If yes: Vial Test Change in medications: If yes Increase in asthma symptoms If yes, inhaler use: Reaction to last injections: If yes: Allergy Symptoms: Other: Missed: Dose Aware of Vial Test Aware: Notes: [email or web address] Not available 09/28/2024 14:10:21 10/30/2024 10/30/2024 Patient presents today with recent [...] GI specialist. [email or web address] Not available 10/30/2024 12:39:10 11/23/2024 11/23/2024 Patient presents today for recheck of recent viral URI and resolved left vocal fold hemorrhage. She was doing better for a few weeks after the prednisone dosing, unfortunately this morning she developed repeat dysphonia. 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 - Continued hydration and avoidance of reflux causing foods - Continue omeprazole for 1-2 more months - Voice rest for 1 week -Significantly recommended speech therapy to try to offload her voice with multiple vocal fold hemorrhages. Surgical discussion: Left direct laryngoscopy with KTP ablation and injection of Decadron. After reviewing their history and discussing the physical exam, including office fiberoptic laryngoscopy, I recommend we proceed to the operating room for direct laryngoscopy with laser ablation of left capillary ectasia and vocal fold injection. Risks include bleeding, infection, pain, airway fire, vocal changes, airway compromise, need for subsequent airway intervention, and damage to surrounding structures, including the lips, teeth, gums, tongue, palate, oropharynx, larynx, and trachea. If biopsy of the vocal cords is performed, there is a risk of scarring, temporary or permanent dysphonia, or the need for further airway-related procedures. They will call to schedule at their earliest convenience. [email or web address] Not available 11/23/2024 11:39:46 Plan of Treatment Reminders Order Date Submit Date Provider Last Modified By Organization Details Last Modified Time Details Appointments None recorded. Lab None recorded. Referral None recorded. Procedures None recorded. Surgeries laryngosco py, direct, with injection into vocal cord(s), therapeuti c; with operating microscpe or telescope (SURG) 2024 025 [email or web address] Not available 5 06:54:16 laryngosco py,direct, operative, with excision of tumor and/or stripping of vocal cords or epiglottis ; with operating microscope or telescope (SURG) 2024 025 [email or web address] Not available 06:54:17 Imaging None recorded. Medication Orders prednisone 20 mg tablet 2024 [facility], [address] [place] [address], [id number], 5 15:07:52 omeprazole 40 mg capsule,de layed release 2024 [facility], [address] [place] [address], [id number], 5 14:33:12 Patient TargetsNo targets recorded. Patient Instructions Encounter Date Encounter Id Patient Instructions Last Modified By Organization Details Last Modified Time 10/30/2024 [id number] laryngopharyngea l reflux education [email or web address] Not available 10/30/2024 11:46:53 Reason for Referral None Reported. Problems Name Problem SNOMED Code Status Onset Date Resolution Date Notes Provider Name and Address Organization Details Recorded Time Deviated nasal septum 257290001 Active 2018 Deviated nasal septum; Note: Date Diagnosed : 07/05/2018 11:43 AM (J34.2) Not Available [facility] 4 03:13:58 Nasal congestio n 45815625 Active 2018 Nasal congestio n; Note: Date Diagnosed : 07/05/2018 11:43 AM (R09.81) Not Available [facility] 4 03:13:58 Headache 87629873 Active 2019 Facial pain NOS; Note: Date Diagnosed : 02/10/2019 1:37 PM (R51) Not Available [facility] 4 03:13:58 Otalgia of right ear 2617044700 Active 2019 Otalgia, right ear; Note: Date Diagnosed : 12/11/2019 2:59 PM (H92.01) Not Available [facility] 4 03:13:59 Acute sinusitis 49824450 Active 2020 Acute sinusitis , unspecifi ed; Note: Date Diagnosed : 05/10/2020 3:30 PM (J01.90) Not Available [facility] 4 03:13:59 Chronic rhinitis 20547233 Active 2020 Chronic rhinitis; Note: Date Diagnosed : 01/09/2021 3:05 PM (J31.0) Not Available [facility] 4 03:13:58 Polyp of nasal cavity 239322918 Active 2021 Polyp of nasal cavity; Note: Date Diagnosed : 03/13/2021 11:28 AM (J33.0) Not Available [facility] 4 03:13:57 Allergic rhinitis 92076733 Active 2023 Allergic rhinitis: Due to other [...] ; Start Date : 9 Not Available [facility] 4 01:24:27 Perennial allergic rhinitis 154488035 Active 2023 VICTORIANO MANCINI [address] [facility], [place], [address] , [place] [facility] 4 11:04:09 Impacted cerumen in right ear [id number] 65497 Active 2023 ORVILLE ABREU MD [address] [facility] 100, [place], [address] , [place] [facility] 4 11:08:25 Moderate persisten t asthma 024765413 Active 2024 SANDOR HOUSTON MD [facility] [place], [place], [address] , [place] - [facility] 5 11:35:17 Vocal cord hemorrhag e 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 Active 2024 Uzair Gutierrez DO [address] [facility] [address], [place], [address] , [place] - [facility] 5 11:45:36 Viral upper respirato ry tract infection 127455360 Active 2024 Uzair Gutierrez DO [address] [facility],[place] [address], [place], [address] , [facility] - [facility] 11:45:42 Laryngoph aryngeal reflux 433083556 Active 2024 Uzair Gutierrez [address] [facility],[place] [address], [place], [address] , [place] [facility] 11:46:29 Gastroeso phageal reflux disease without esophagit is 643943732 Active 2024 Uzair Gutierrez [address] [facility],[place] [address], [place], [address] , [place] [facility] 11:46:29 Edema of larynx 05342345 Active 2024 Uzair Gutierrez [address] [facility],[place] [address], [place], [address] , [place] [facility] 11:46:29 Disorder of vocal cord 40173515 Active 2024 Uzair Gutierrez [address] [facility],[place] [address], [place], [address] , [facility] - [facility] 11:40:36 Atrophy of vocal cord 074408051 Active [address],[place] [address], [place], [address] , [facility] - [facility] 11:40:36 Problem Notes None recorded. Procedures Surgical History Date Name Laterality Status Provider Name and Address Organization Details Recorded Time 11/24/19 25 FOL_Reflux_DHL completed Uzair Gutierrez [address] [facility],[place] [address], [place], [address], [facility] - [facility] 11/23/2024 11:40:00 10/31/19 25 FOL_Reflux_DHL completed Uzair Gutierrez [address],[place] [address], [address], [place] [facility] 10/30/2024 12:38:51 09/29/19 25 Allergy Immunotherapy Injections completed KOURTNEY MANCINI [address] [facility] [address],[place] [address] [place] [address], [address], [place] [facility] 09/28/2024 14:10:25 07/28/19 25 Allergy Immunotherapy Injections completed CHASIDY OLIVIER RN [facility] [place] [address], [address], [place] [facility] 07/27/2024 15:55:54 07/08/19 25 Allergy Immunotherapy Injections completed BABS DUNCAN RMSergio [facility] [place] [address] [place] [address], [address], [place] [facility] 07/07/2024 14:18:28 06/21/19 25 Allergy Immunotherapy Injections completed BABS DUNCAN RMSergio [facility] [place] [address] [place] [address], [address], [place] [facility] 06/20/2024 13:53:08 06/15/19 25 Allergy Immunotherapy Injections completed BABS DUNCAN RMA [facility] [place] [address] [place] [address], [address], [place] [facility] 06/14/2024 15:55:16 06/10/19 25 Allergy Immunotherapy Injections completed CHASIDY OLIVIER RN [facility] [place],[address], [address], [place] [facility] 06/09/2024 12:17:16 06/01/19 25 Allergy Immunotherapy Injections completed KOURTNEY MANCINI [address] [facility] [address],[place] [address] [place] [address], [address], [place] [facility] 05/31/2024 13:30:20 05/25/19 25 Allergy Immunotherapy Injections completed BABS DUNCAN RMSergio [address] [facility] [address],[place] [address], [address], [place] [facility] 05/24/2024 13:47:36 05/19/19 25 Allergy Immunotherapy Injections completed CHASIDY OLIVIER RN [address] [facility] [place] [address], [address], [place] [facility] 05/18/2024 15:41:18 05/13/19 25 Allergy Immunotherapy Injections completed BABS DUNCAN RMSergio [address] [facility] [address],[place] [address], [address], [place] [facility] 05/12/2024 13:54:46 05/06/19 25 Allergy Immunotherapy Injections completed KOURTNEY MANCINI [address] [facility] [address],[place] [address], [place], [address], [place] [facility] 05/05/2024 14:51:01 04/28/19 25 Allergy Immunotherapy Injections completed KOURTNEY MANCINI [facility] [place] [address] [place] [address], [address], [place] [facility] 04/27/2024 15:32:24 04/27/19 25 JMSNasal/Sinus Endoscopy completed SANDOR GREENBERG MD [address] [facility] [place] [address] [place] [address], [address], [place] [facility] 04/26/2024 11:34:55 04/22/19 25 Allergy Immunotherapy Injections completed BABS DUNCAN RMSergio [facility] [place] [address] [place] [address], [address], [place] [facility] 04/21/2024 15:25:14 04/15/19 25 Allergy Immunotherapy Injections completed BABS DUNCAN RMSergio [facility] [place] [address] [place] [address], [address], [place] [facility] 04/14/2024 12:13:53 04/07/19 25 Allergy Immunotherapy Injections completed CHASIDY OLIVIER RN [address] [facility] [address],[place] [address] [place] [address], [address], [place] [facility] 04/07/2024 15:28:25 03/31/19 25 Allergy Immunotherapy Injections completed CHASIDY OLIVIER RN [facility] [place],[place] [address], [address], [place] [facility] 03/31/2024 13:19:41 03/23/19 25 Allergy Immunotherapy Injections completed BABS KORZEC, RMA [address],[place] [address], [place], [address], [place] [facility] 03/23/2024 15:32:40 03/10/19 25 Allergy Immunotherapy Injections completed CHASIDY OLIVIER RN [address],[place] [address], [place], [address], [place] [facility] 03/10/2024 12:05:52 03/02/19 25 Allergy Immunotherapy Injections completed KOURTNEY MANCINI [address],[place] [address], [place], [address], [place] [facility] 03/02/2024 12:02:23 02/23/19 25 Allergy Immunotherapy Injections completed KOURTNEY MANCINI [address],[place] [address], [address], [place] [facility] 02/24/2024 11:30:40 02/14/19 25 Allergy Immunotherapy Injections completed BABS DUNCAN RMA [address],[place], [place], [address], [place] [facility] 02/15/2024 11:08:53 02/09/19 25 Allergy Immunotherapy Injections completed BABS DUNCAN RMA [address],[place] [address], [address], [place] [facility] 02/10/2024 14:28:06 01/27/20 24 Allergy Immunotherapy Injections completed CHASIDY OLIVIER RN [address] [facility],[place] [address], [address], [place] [facility] 01/27/2024 09:07:49 01/20/20 24 Allergy Immunotherapy Injections completed LEANNA ACEVEDO RMA [address],[place] [address], [place], [address], [place] [facility] 01/20/2024 13:36:07 01/13/20 24 Allergy Immunotherapy Injections completed BABS DUNCAN RMA [address],[place] [address], [place], [address], [place] [facility] 01/13/2024 14:30:51 01/05/20 24 Allergy Immunotherapy Injections completed BABS DUNCAN, RMA [address],[place], [place], [address], [place] [facility] 01/05/2024 13:22:16 12/30/19 24 Allergy Immunotherapy Injections completed LEANNA ACEVEDO, RMA [address],[place], [place], [address], [place] - [facility] 12/30/2023 12:06:22 12/23/19 24 Allergy Immunotherapy Injections completed BABS DUNCAN, RMA [address],[place], [place], [address], [place] [facility] 12/23/2023 11:41:23 12/16/19 24 Allergy Immunotherapy Injections completed LEANNA ACEVEDO RMA [address],[place], [place], [address], [place] [facility] 12/16/2023 11:21:05 12/09/19 24 Allergy Immunotherapy Injections completed BABS DUNCAN RMA [address],[place], [place], [address], [place] [facility] 12/09/2023 11:41:30 11/30/19 24 Allergy Immunotherapy Injections completed CHASIDY OLIVIER RN [address] [facility],[place] [address] [place] [address], [address], [place] [facility] 11/30/2023 11:29:17 11/25/19 24 Allergy Immunotherapy Injections completed BABS DUNCAN RMA [address],[place], [place], [address], [place] [facility] 11/25/2023 11:41:02 11/18/19 24 Allergy Immunotherapy Injections completed LEANNA ACEVEDO RMA [address], [place], [address], [place] [facility] 11/18/2023 11:51:54 11/11/19 24 Allergy Immunotherapy Injections completed CHASIDY OLIVIER RN [address], [place], [address], [place] [facility] 11/11/2023 09:15:07 11/05/19 24 Allergy Immunotherapy Injections completed VICTORIANO MANCINIA [address], [place], [address], [place] [facility] 11/05/2023 12:14:13 10/28/19 24 Allergy Immunotherapy Injections completed BABS DUNCAN RMA [address], [place], [address], [place] [facility] 10/28/2023 14:45:57 10/21/19 24 Allergy Immunotherapy Injections completed VICTORIANO MANCINIA [address], [place], [address], [place] [facility] 10/21/2023 11:41:17 10/08/19 24 Allergy Immunotherapy Injections completed BABS DUNCAN RMA [address], [place], [address], [place] [facility] 10/08/2023 11:33:35 10/01/19 24 Allergy Immunotherapy Injections completed KOURTNEY MANCINI [address], [place], [address], [place] [facility] 10/01/2023 10:32:59 09/23/19 24 Allergy Immunotherapy Injections completed VICTORIANO MANCINIA [address],[place] [address], [place], [address], [place] [facility] 09/23/2023 13:46:52 09/16/19 24 Allergy Immunotherapy Injections completed BABS DUNCAN RMA [address], [place], [address], [place] [facility] 09/16/2023 14:07:22 09/09/19 24 Allergy Immunotherapy Injections completed CHASIDY OLIVIER RN [address],[place] [address], [place], [address], [place] [facility] 09/09/2023 12:03:04 09/02/19 24 Allergy Immunotherapy Injections completed BABS DUNCAN RMA [address],[place] [address], [place], [address], [place] [facility] 09/02/2023 11:46:51 08/26/19 24 Allergy Immunotherapy Injections completed BABS DUNCAN, RMA [address], [place], [address], [place] [facility] 08/26/2023 13:11:56 08/19/19 24 Allergy Immunotherapy Injections completed CHASIDY OLIVIER RN [address], [place], [address], [place] [facility] 08/19/2023 14:02:06 08/10/19 24 Allergy Immunotherapy Injections completed BABS DUNCAN, RMA [address] [facility] [address], [place], [address], [place] [facility] 08/10/2023 15:12:45 08/04/19 24 Allergy Immunotherapy Injections completed BABS DUNCAN, RMA [address] [facility], [place], [address], [place] [facility] 08/04/2023 12:15:15 08/04/19 24 Cerumen removal without microscope completed ORVILLE ABREU MD [address] [facility],[place] [address] [place] [address], [address], [place] [facility] 08/04/2023 11:08:52 07/28/19 24 Allergy Immunotherapy Injections completed KOURTNEY MANCINI [address] [facility],[place] [address] [place] [address], [address], [facility] - [facility] 07/28/2023 15:01:20 07/20/19 24 Allergy Immunotherapy Injections completed BABS DUNCAN RMA [address] [facility],[place] [address], [place], [address], [place] [facility] 07/20/2023 14:23:42 07/13/19 24 Allergy Immunotherapy Injections completed KOURTNEY MANCINI [address] [facility] [address],[place] [address], [place], [address], [place] [facility] 07/13/2023 13:59:55 07/06/19 24 Allergy Immunotherapy Injections completed KOURTNEY MANCINI [facility],[place] [address], [place], [address], [place] [facility] 07/06/2023 12:17:36 06/29/19 24 Allergy Immunotherapy Injections completed LEANNA ACEVEDO, [facility] 100, [place], [address], [place] [facility] 06/29/2023 11:04:40 Imaging Results None recorded. Procedure [...] as directed 04/26 completed Medicati on ID: [id number] D uration Value: 12 Brand Name: predniso [...] % shampoo 11/23 completed Medicati on ID: [id number] B rand Name: ketocona zole Sen d [...] eye drops 06/16 completed Medicati on ID: [id number] B rand Name: ketotife n fumarate Send [...] eye drops 11/23 completed Medicati on ID: [id number] B giuseppe Name: cromolyn Send Method: E-Prescr ibed Sub [...] a day 04/26 completed Medicati on ID: [id number] D uration Value: 7 Brand Name: ofloxaci [...] mg tablet 03/13 completed Medicati on ID: [id number] D uration Value: 15 Brand Name: lorazepa m Send Method: E-Prescr ibed Sub s Allowed: subs OK Speci al Instruct ion: TAKE 1 TABLET TWICE DAILY NEEDED M edicatio nGeneric Name: lorazepa m Not Available Not Available Not Available cyanocoba santy (vit B-12) 500 mcg tablet 06/16 completed Medicati on ID: [id number] B rand Name: cyanocob alamin (vitamin B-12) [...] spray aerosol 06/16 completed Medicati on ID: [id number] B rand Name: triamcin olone acetonid e [...] as directed 11/23 completed Medicati on ID: [id number] D uration Value: 30 Prescri bed By [...] 1 tablet 04/26 completed Medicati on ID: [id number] D uration Value: 14 Prescri bed By [...] mg tablet 03/13 completed Medicati on ID: [id number] B rand Name: Fiber-La x Send Method: [...] unit) capsule 03/13 completed Medicati on ID: [id number] D uration Value: 30 Brand Name: Vitamin D3 Send Method: E-Prescr ibed Sub s Allowed: subs KALIE Askew al Instruct ion: TAKE 1 CAPSULE EVERY [...] extended release 04/26 completed Medicati on ID: [id number] B rand Name: bupropio n HCl Send [...] aerosol inhaler 11/23 completed Medicati on ID: [id number] B rand Name: Symbicor t Send Method: E-Prescr ibed Sub s Allowed: subs KALIE Askew al Instruct ion: INHALE 2 PUFFS BY MOUTH TWICE DAILY IN THE MORNING AND IN THE EVENING, RINSE MOUTH AFTER USING. M diony De [place] Name: Symbicor t Not [...] Updated DateTime 10/30/2024 160.02 cm 39.9 kg/m2 936561.28 g Ella Alamo [facility] 10/30/2024 11:16:17 Date Recorded Body height Body mass index (BMI) Body weight Provider Name and Address Organization Details Last Updated DateTime 11/23/2024 160.02 cm 39.9 kg/m2 086035.28 g Twila Perera [facility] 11/23/2024 11:07:32 Social History None recorded. Functional Status None [...] ICD10 Code Diagnosis IMO Codes Diagnosis Note 970 KOURTNEY MANCINI Allergy [address] [place] [address] [place] [address] 06/29/2023 10:40:03 06/29/2023 13:04:16 Perennial allergic rhinitis [id number] J30.89 1676 LEANNA ACEVEDO Sergio Allergy [address] [place] [address] [place] [address] 07/06/2023 11:33:08 07/06/2023 13:08:25 Perennial allergic rhinitis [id number] J30.89 2711 LEANNA ACEVEDO Sergio [facility] [address] [place] [address], it[place] [address] [place] [address] 07/13/2023 13:59:04 07/13/2023 16:17:46 Perennial allergic rhinitis 580422992 J30.89 3638 CHASIDY OLIVIER RN Allergy [facility],[place] [address] [place] [address] 07/20/2023 13:40:57 07/20/2023 14:41:26 Perennial allergic rhinitis 575733939 J30.[address] [facility],[place] [address] [place] [address] 07/28/2023 14:43:00 07/28/2023 15:22:03 Perennial allergic rhinitis 708859012 J30.89 5647 ORVILLE ABREU MD [facility] [address] 08/04/2023 10:43:21 08/04/2023 11:37:12 Allergic rhinitis 24943579 J30.9 She is benefiting from immunother apy and should continue. No local or systemic reactions. Impacted c erumen in right ear [id number] 428202 H61.21 5670 [facility] Allergy [address] [place] [address],[place] [address] [place] [address] 08/04/2023 10:49:55 08/04/2023 12:16:11 Perennial allergic rhinitis 523357610 J30.89 6379 [facility] Allergy [address] [place] [address], [address] [place] [address] 08/10/2023 14:50:37 08/10/2023 15:13:37 Perennial allergic rhinitis 772228384 J30.89 7523 LEANNA ACEVEDO, [facility] Allergy [address] [place] [address],[place] [address] [place] [address] 08/19/2023 13:02:50 08/19/2023 14:02:42 Perennial allergic rhinitis [id number] J30.[address] [facility], [facility] Allergy [facility],[address] [place] [address] 08/26/2023 13:09:41 08/26/2023 14:40:44 Perennial allergic rhinitis [id number] J30.89 9518 [facility],[address] [place] [address] 09/02/2023 11:46:08 09/02/2023 12:14:48 Perennial allergic rhinitis [id number] J30.89 [id number] CHASIDY OLIVIER, 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 [address] [place] [address],[address] [place] [address] 09/09/2023 12:01:05 09/09/2023 12:03:31 Perennial allergic rhinitis [id number] J30.89 [id number] CHASIDY OLIVIER 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 [address] [place] [address],[address] [place] [address] 09/16/2023 14:06:37 09/16/2023 14:09:55 Perennial allergic rhinitis [id number] J30.89 [id number] [facility], A Allergy [address] [place] [address],[address] [place] [address] 09/23/2023 13:46:12 09/23/2023 15:15:35 Perennial allergic rhinitis [id number] J30.89 [id number] [facility] Allergy [address] [place] [address],[address] [place] [address] 10/01/2023 10:32:08 10/01/2023 11:08:50 Perennial allergic rhinitis [id number] J30.89 [id number] [facility], A Allergy [address] [place] [address],[address] [place] [address] 10/08/2023 11:32:22 10/08/2023 11:35:11 Perennial allergic rhinitis [id number] J30.89 [id number] CHASIDY OLIVIER RN Allergy [address] [place] [address],[address] [place] [address] 10/21/2023 11:40:28 10/21/2023 11:45:15 Perennial allergic rhinitis [id number] J30.89 [id number] [facility] Allergy [address] [place] [address],[address] [place] [address] 10/28/2023 14:45:23 10/28/2023 14:46:29 Perennial allergic rhinitis [id number] J30.89 [id number] [facility] Allergy [address] [facility],[address] [place] [address] 11/05/2023 12:13:34 11/05/2023 12:17:02 Perennial allergic rhinitis [id number] J30.89 [id number] [facility], A Allergy [address] [facility],[address] [place] [address] 11/11/2023 09:14:13 11/11/2023 09:15:31 Perennial allergic rhinitis [id number] J30.89 [id number] LEANNA KRISTINA, [facility] Allergy [address] [facility],[address] [place] [address] 11/18/2023 11:51:09 11/18/2023 11:54:40 Perennial allergic rhinitis [id number] J30.89 [id number] CHASIDY OLIVIER RN Allergy [address] [place] [address],[address] [place] [address] 11/25/2023 11:40:11 11/25/2023 11:42:27 Perennial allergic rhinitis [id number] J30.89 [id number] CHASIDY OLIVIER RN Allergy [address] [place] [address],[address] [place] [address] 11/30/2023 11:27:30 11/30/2023 11:29:40 Perennial allergic rhinitis [id number] J30.89 [id number] [facility], A Allergy [address] [facility],[address] [place] [address] 12/09/2023 11:40:30 12/09/2023 11:45:14 Perennial allergic rhinitis [id number] J30.89 [id number] LEAN[facility] ACEVEDO, [facility] Allergy [address] [place] [address],[address] [place] [address] 12/16/2023 11:19:05 12/16/2023 11:25:34 Perennial allergic rhinitis [id number] J30.89 [id number] CHASIDY OLIVIER RN Allergy [address] [place] [address],[address] [place] [address] 12/23/2023 11:40:45 12/23/2023 11:41:56 Perennial allergic rhinitis [id number] J30.89 [id number] LEANNA ACEVEDO, A Allergy [address] [facility],[address] [place] [address] 12/30/2023 12:05:49 12/30/2023 12:09:12 Perennial allergic rhinitis [id number] J30.89 [id number] [facility], [facility] Allergy [address] [facility],[address] [place] [address] 01/05/2024 13:21:18 01/05/2024 13:23:23 Perennial allergic rhinitis [id number] J30.89 [id number] [facility], [facility] Allergy [address] [facility],[address] [place] [address] 01/13/2024 14:30:08 01/13/2024 14:31:30 Perennial allergic rhinitis [id number] J30.89 [id number] CHASIDY OLIVIER RN Allergy [address] [place] [address],[address] [place] [address] 01/20/2024 13:35:13 01/20/2024 13:37:34 Perennial allergic rhinitis [id number] J30.89 [id number] CHASIDY OLIVIER RN Allergy [address] [place] [address],[address] [place] [address] 9 01/27/2024 09:07:15 01/27/2024 09:14:27 Perennial allergic rhinitis [id number] J30.89 [id number] [facility], A Allergy [address] [facility],[address] [place] [address] 02/10/2024 14:26:51 02/10/2024 14:35:04 Perennial allergic rhinitis [id number] J30.89 [id number] [facility], A Allergy [address] [facility],[address] [place] [address] 02/15/2024 11:08:17 02/15/2024 11:17:45 Perennial allergic rhinitis [id number] J30.89 [id number] CHASIDY OLIVIER RN Allergy [address] [place] [address],[address] [place] [address] 02/24/2024 11:29:38 02/24/2024 11:31:30 Perennial allergic rhinitis [id number] J30.89 [id number] [facility] Allergy [address] [place] [address],[address] [place] [address] 03/02/2024 12:01:42 03/02/2024 12:02:49 Perennial allergic rhinitis [id number] J30.89 [id number] CHASIDY OLIVIER RN Allergy [address] [place] [address], [address] [place] [address] 03/10/2024 12:04:55 03/10/2024 12:06:11 Perennial allergic rhinitis [id number] J30.[id number] [facility], A Allergy [address] [place] [address],[address] [place] [address] 03/23/2024 15:32:06 03/23/2024 15:33:20 Perennial allergic rhinitis [id number] J30.89 [id number] [facility] Allergy [address] [place] [address], [address] [place] [address] 03/31/2024 13:19:12 03/31/2024 13:20:14 Perennial allergic rhinitis [id number] J30.89 [id number] CHASIDY OLIVIER RN Allergy [address] [place] [address], [address] [place] [address] 04/07/2024 15:27:56 04/07/2024 15:28:48 Perennial allergic rhinitis [id number] J30.89 [id number] [facility], A Allergy [address] [place] [address],[address] [place] [address] 04/14/2024 12:11:58 04/14/2024 12:14:41 Perennial allergic rhinitis [id number] J30.[id number] [facility], A Allergy [address] [place] [address],[address] [place] [address] 04/21/2024 15:23:02 04/21/2024 15:25:55 Perennial allergic rhinitis [id number] J30.89 [id number] SANDOR HOUSTON MD [facility] [place] [address] [place] [address] 04/26/2024 11:10:56 04/26/2024 11:52:25 Allergic rhinitis 14288237 J30.9 Moderate p ersistent asthma 678468175 J45.40 I reviewed with the patient the need to be consistent with her Advair and only use the Ventolin/a lbuterol in case of shortness of breath. The Advair will work better for prevention . It has a steroid and a long-actin g version of the Ventolin. I will add montelukas t to her regimen.He r PFTs were normal. If the montelukas t does not help and symptoms or not improved with twice daily use of Advair, I suggest she follow-up with her PCP for further workup of shortness of breath Impacted c erumen in right ear [id number] 492318 H61.21 Suggested 3 drops distilled vinegar in each ear twice weekly to prevent the buildup of cerumen 79705 [facility], [facility] Allergy [address] [place] [address],[address] [place] [address] 04/26/2024 11:37:28 04/26/2024 11:41:35 Allergic rhinitis 57996601 J30.9 49973 [facility] Allergy [address] [place] [address],[address] [place] [address] 04/27/2024 15:31:49 04/27/2024 15:33:40 Perennial allergic rhinitis [id number] J30.89 15000 [facility] Allergy [address] [place] [address],[address] [place] [address] 05/05/2024 14:50:11 05/05/2024 14:51:33 Perennial allergic rhinitis [id number] J30.89 55413 [facility] [address] [place] [address],[address] [place] [address] 05/12/2024 13:54:15 05/12/2024 13:55:32 Perennial allergic rhinitis [id number] J30.89 [id number] CHASIDY OLIVIER RN Allergy [address] [place] [address],[address] [place] [address] 05/18/2024 15:40:38 05/18/2024 15:41:49 Perennial allergic rhinitis [id number] J30.89 02651 [facility], [facility] Allergy [address] [facility],[address] [place] [address] 05/24/2024 13:47:03 05/24/2024 13:47:55 Perennial allergic rhinitis [id number] J30.89 [id number] LEAN[facility] ACEVEDO, [facility] Allergy [address] [facility],[address] [place] [address] 05/31/2024 13:28:53 05/31/2024 13:35:36 Perennial allergic rhinitis [id number] J30.89 27506 [facility] ACEVED[facility], [facility] Allergy [address] [facility],[address] [place] [address] 06/09/2024 12:16:42 06/09/2024 12:17:43 Perennial allergic rhinitis [id number] J30.89 [id number] CHASIDY OLIVIER 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 [address] [facility],[address] [place] [address] 06/14/2024 15:54:36 06/14/2024 15:55:44 Perennial allergic rhinitis [id number] J30.89 [id number] [facility], A Allergy [address] [facility],[address] [place] [address] 06/20/2024 13:51:51 06/20/2024 13:53:44 Perennial allergic rhinitis 455722700 J30.89 65760 [facility], A Allergy [address] [facility],[address] [place] [address] 07/07/2024 14:17:28 07/07/2024 14:19:04 Perennial allergic rhinitis 921072703 J30.89 [id number] [facility] Allergy [address] [facility],[address] [place] [address] 07/27/2024 15:55:13 07/27/2024 15:56:33 Perennial allergic rhinitis [id number] J30.89 [id number] LEANNA ACEVEDO A Allergy [address] [facility],[address] [place] [address] 09/28/2024 13:02:02 09/28/2024 14:10:42 Perennial allergic rhinitis 713467410 J30.89 [id number] Uzair Brenda, DO [facility] of [address] [address] 10/30/2024 10:30:30 10/30/2024 11:48:50 Vocal cord hemorrhage 197225213 R04.1 [id number] Viral uppe r respiratory tract infection 175720858 J06.9 237314 Laryngopha ryngeal reflux 032572490 K21.9 6948496 Gastroesop hageal reflux disease without esophagitis 664164943 K21.9 767017 Edema of larynx 81214737 J38.4 46996 [id number] Uzair Gutierrez, DO [facility] [address] [address] 11/23/2024 10:53:48 11/23/2024 11:38:31 Vocal cord hemorrhage 608430917 R04.5 [id number] Left Viral uppe r respiratory tract infection 648990415 J06.9 311806 Laryngopha ryngeal reflux 123134562 K21.9 [id number] Findings today were consistent with LPR or laryngopha ryngeal reflux. We discussed lifestyle modificati ons, including avoiding caffeinate d, spicy, or acidic foods, elevating the head of the bed during sleep, and avoiding eating before lying flat. The patient can also trial alginate therapy with either Gaviscon or Reflux Gormet prn. The patient will also start taking acid-reduc ing medication 30 minutes before meals: 40mg PPI Daily. If symptoms persist would recommend evaluation by a GI specialist . Gastroesop hageal reflux disease without esophagitis 859552451 K21.9 738457 Edema of larynx 65459774 J38.4 52787 Atrophy of vocal cord 42 3230251 J38.3 083022 Disorder o f vocal cord 10509671 J38.3 [id number] Health Concerns Section Related Observation LastModified by Organization Detai ls LastModified Time None Recorded Concern Status LastModified by Organization Details LastModified Time None Recorded Advance Directives Directive None Recorded Payers Insurance Date Sequence Insurance Name Policy Number Policy Monet Covered Member ID Monet Member ID Guarantor Name 11/20/2024 1 [place] [employer] Marrero [id number] Catalina Marrero Notes Date Note Type Note [...] frustrating to her. Previously seen by Dr. Greenberg/[facility]: Allergy patient of Dr. Abreu seen for an opinion regarding crusting and debris from the nose. She is also noted chronic shortness of breath and difficulty with exercise. No wheezing but recent use of albuterol. She is taking Advair and cetirizine. Has not been using azelastine Uzair Xieren, [address] [facility],[address], [address], [facility] 10/30/2024 12:39:19 11/23/2024 text/html ROS as noted in the HPI Interval history: At the last visit I provided her prednisone and started her on a PPI. This has improved her symptoms, unfortunately this morning she woke up and had repeat dysphonia after having almost complete resolution. She denies any previous vocal trauma. She feels very raspy today. Patient has concerns with fairly new onset [...] frustrating to her. Previously seen by Dr. Greenberg/[facility]: Allergy patient of Dr. Abreu seen for an opinion regarding crusting and debris from the nose. She is also noted chronic shortness of breath and difficulty with exercise. No wheezing but recent use of albuterol. She is taking Advair and cetirizine. Has not been using azelastine Uzair Xieren, [address] [facility],[address], [address], [facility] - [facility] 11/23/2024 11:42:40 OBGyn Episode No OBEpisode recorded.
--- OUTSIDE RECORDS SUMMARY | 2025-01-17 22:08 | XMS_ITS | Encounter Summary ---
Author Organization [email or web address] Address [address] [facility] [address] [place] [address] Care Team Providers Care Supervisor Burling And Joining Name Role Phone Roberta Burroughs MD Primary Care Pro vider Gonsalo Unger Unavailable Unavailable Reason for Visit * Reason Comments Med Refill Encounter Details Date Type Department Care Team (Late st Contact Info) Description 06/07/2024 Refill [facility] [address] [place], [place] [phone] Karina Eaton MD [address] [place] [address] Social History Tobacco Use Types Packs/Day Years [...] 03/02/2025 2:00 PM EST Office Visit [facility] [address] [place] [address] Roberta Burroughs MD [address] [place] [id number] documented as of this encounter Visit Diagnoses Not on filedocumented in this encounter Additional Health Concerns Assessment Noted Time PHQ-9 Depression Total Score: 17 024 11:32 AM EDT documented as of this encounter Care Teams Supervisor Burling And Joining Relationship Specialty Start Date End Date Roberta Burroughs MD [address] [place] [id number] PCP - General Internal Medicine 08/05/22 Gonsalo Unger FNP [address] [place] [id number] Nurse Practitioner Family Medicine 12/28/22 documented as of this encounter
--- OUTSIDE RECORDS SUMMARY | 2025-01-17 22:08 | XMS_ITS | Continuity of Care Document ---
Author Organization [facility], [facility] Address [address] [place] [address] Care Team Providers Care Electronic Field Service Engineer Name Role Phone CRYSTAL SANCHEZ Primary Care Provider [phone] CRYSTAL SANCHEZ Primary Care Provider Assessment Encounter Date Assessment Date Assessment LastModified by Organization Details LastModified Time 11/23/2024 11/23/2024 Patient presents today for recheck [...] (SURG) 2024 025 mcassesse Not available 5 06:54:17 Imaging None recorded. Medication Orders None recorded. Patient TargetsNo targets recorded. Patient InstructionsNo instructions recorded. Reason for Referral None Reported. Problems Name Problem SNOMED Code Status Onset Date Resolution Date Notes Provider Name and Address Organization Details Recorded Time Deviated nasal septum 279885979 Active 2018 Deviated nasal septum; Note: Date Diagnosed : 07/05/2018 11:43 AM (J34.2) Not Available [facility] 4 03:13:58 Nasal congestio n 18650141 Active 2018 Nasal congestio n; Note: Date Diagnosed : 07/05/2018 11:43 AM (R09.81) Not Available [facility] 4 03:13:58 Headache 91990317 Active 2019 Facial pain NOS; Note: Date Diagnosed : 02/10/2019 1:37 PM (R51) Not Available [facility] 4 03:13:58 Otalgia of right ear 9854025764 Active 2019 Otalgia, right ear; Note: Date Diagnosed : 12/11/2019 2:59 PM (H92.01) Not Available [facility] 4 03:13:59 Acute sinusitis 16224531 Active 2020 Acute sinusitis , unspecifi ed; Note: Date Diagnosed : 05/10/2020 3:30 PM (J01.90) Not Available [facility] 4 03:13:59 Chronic rhinitis 67225641 Active 2020 Chronic rhinitis; Note: Date Diagnosed : 01/09/2021 3:05 PM (J31.0) Not Available [facility] 4 03:13:58 Polyp of nasal cavity 149413638 Active 2021 Polyp of nasal cavity; Note: Date Diagnosed : 03/13/2021 11:28 AM (J33.0) Not Available [facility] 4 03:13:57 Allergic rhinitis 90225269 Active 2023 Allergic rhinitis: Due to other [...] ; Start Date : 9 Not Available [facility] 4 01:24:27 Perennial allergic rhinitis 368111520 Active 2023 KOURTNEY MANCINI [address] [facility],[place] [address], [place] juá[place], [place], [address] , [facility] [place] 4 11:04:09 Impacted cerumen in right ear [id number] 03501 Active 2023 ORVILLE ABREU MD [address] [place] [address],[place] [address], [place], [place], [address] , [facility] - [facility] [place] 4 11:08:25 Moderate persisten t asthma 920959103 Active 2024 SANDOR HOUSTON MD [address] [place] [address],[place] [address], [place], [place], [address] , [facility] - [facility] [place] 5 11:35:17 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 Uzair Gutierrez DO [address] [place] [address],[place] [address], [place], [place], [address] , [facility] - [facility] [place] 5 11:45:36 Viral upper respirato ry tract infection 008179684 Active 2024 zUair Gutierrez DO [address] [place] [address],[place] [address], [place], [address] , [facility] - [facility] [place] 5 11:45:42 Laryngoph aryngeal reflux 214298307 Active 2024 Uzair Gutierrez DO [address] [place] [address],[place] [address], [place], [address] , [facility] - [facility] [place] 5 11:46:29 Gastroeso phageal reflux disease without esophagit is 625636108 Active 2024 Uzair Gutierrez DO [address] [facility] [place],[address], [place], [address] , [place] [facility] [place] 11:46:29 Edema of larynx 36802733 Active 2024 Uzair Gutierrez, DO [address] [facility] [place],[address], [facility], [address] , [place] [facility] [place] 11:46:29 Disorder of vocal cord 90482371 Active 2024 Uzair Gutierrez, DO [address] [facility] [place],[facility], [place], [address] , [place] [facility] [place] 11:40:36 Atrophy of vocal cord 644513568 Active 2024 Uzair Gutierrez, DO [address] [facility] [place] [address], [place], [address] , [place] [facility] [place] 11:40:36 Problem Notes None recorded. Procedures Surgical History Date Name Laterality Status Provider Name and Address Organization Details Recorded Time 11/24/19 25 FOL_Reflux_DHL completed Uzair Gutierrez DO [address] [facility],[place] [address], [place], [address], [place] [facility] [place] 11/23/2024 11:40:00 10/31/19 25 FOL_Reflux_DHL completed Uzair Gutierrez, DO [address] [facility],[place] [address], [place], [address], [place] [facility] [place] 10/30/2024 12:38:51 09/29/19 25 Allergy Immunotherapy Injections completed LEANNA ACEVEDO A [address] [facility] [place] [address], [place], [address], [place] [facility] [place] 09/28/2024 14:10:25 07/28/19 25 Allergy Immunotherapy Injections completed CHASIDY OLIVIER RN [address] [facility],[place] [address], [place], [address], [place] [facility] [place] 07/27/2024 15:55:54 07/08/19 25 Allergy Immunotherapy Injections completed BABS DUNCAN, RMA [address],[place] [address], [place], [address], [place] [facility] [place] 07/07/2024 14:18:28 06/21/19 25 Allergy Immunotherapy Injections completed BABS KEMPC, RMA [address],[place] [address], [place], [address], [place] [facility] [place] 06/20/2024 13:53:08 06/15/19 25 Allergy Immunotherapy Injections completed BABS DUNCAN, RMA [address], [place], [address], [place] [facility] [place] 06/14/2024 15:55:16 06/10/19 25 Allergy Immunotherapy Injections completed CHASIDY OLIVIER RN [address] [facility] [place] [place] [address], [address], [place] [facility] [place] 06/09/2024 12:17:16 06/01/19 25 Allergy Immunotherapy Injections completed KOURTNEY MANCINI [address] [facility] [place] [address], [place], [address], [place] [facility] [place] 05/31/2024 13:30:20 05/25/19 25 Allergy Immunotherapy Injections completed BABS DUNCAN RMA [address],[place] [address], [place], [address], [place] [facility] [place] 05/24/2024 13:47:36 05/19/19 25 Allergy Immunotherapy Injections completed CHASIDY OLIVIER RN [address] [facility] [place] [address] [place] [address], [address], [place] [facility] [place] 05/18/2024 15:41:18 05/13/19 25 Allergy Immunotherapy Injections completed BABS DUNCAN RMA [address],[place] [address], [place], [address], [place] [facility] [place] 05/12/2024 13:54:46 05/06/19 25 Allergy Immunotherapy Injections completed KOURTNEY MANCINI [address],[place] [address], [place], [address], [place] [facility] [place] 05/05/2024 14:51:01 04/28/19 25 Allergy Immunotherapy Injections completed LEANNA KRISTINA, RMA [address], [place], [address], [place] [facility] [place] 04/27/2024 15:32:24 04/27/19 25 JMSNasal/Sinus Endoscopy completed SANDOR GREENBERG MD [address],[place] [place] [address], [address], [place] [facility] [place] 04/26/2024 11:34:55 04/22/19 25 Allergy Immunotherapy Injections completed BABS DUNCAN, RMA [address],[place] [address], [place], [address], [place] [facility] [place] 04/21/2024 15:25:14 04/15/19 25 Allergy Immunotherapy Injections completed BABS DUNCAN, RMA [address] [facility], [place], [address], [place] [facility] [place] 04/14/2024 12:13:53 04/07/19 25 Allergy Immunotherapy Injections completed CHASIDY OLIVIER RN [address] [facility] [place] [address] [place] [address], [address], [place] [facility] [place] 04/07/2024 15:28:25 03/31/19 25 Allergy Immunotherapy Injections completed CHASIDY OLIVIER RN [address] [facility] [address],[place] [place] [address], [address], [place] [facility] [place] 03/31/2024 13:19:41 03/23/19 25 Allergy Immunotherapy Injections completed BABS DUNCAN RMA [address] [facility] [address],[place] [place] [address], [address], [place] [facility] [place] 03/23/2024 15:32:40 03/10/19 25 Allergy Immunotherapy Injections completed CHASIDY OLIVIER RN [address] [facility],[place] [place] [address], [address], [place] [facility] [place] 03/10/2024 12:05:52 03/02/19 25 Allergy Immunotherapy Injections completed KOURTNEY MANCINI [address],[place] [address], [place], [address], [place] [facility] [place] 03/02/2024 12:02:23 02/23/19 25 Allergy Immunotherapy Injections completed LEANNA ACEVEDO RMA [address], [place], [address], [place] [facility] [place] 02/24/2024 11:30:40 02/14/19 25 Allergy Immunotherapy Injections completed BABS DUNCAN, RMA [address], [place], [address], [place] [facility] [place] 02/15/2024 11:08:53 02/09/19 25 Allergy Immunotherapy Injections completed BABS KEMPC, RMA [address], [place], [address], [place] [facility] 02/10/2024 14:28:06 01/27/20 24 Allergy Immunotherapy Injections completed CHASIDY OLIVIER RN [address],[place] [address], [place], [address], [place] [facility] 01/27/2024 09:07:49 01/20/20 24 Allergy Immunotherapy Injections completed LEANNA ACEVEDO RMA [address], [place], [address], [place] [facility] [place] 01/20/2024 13:36:07 01/13/20 24 Allergy Immunotherapy Injections completed BABS DUNCAN, RMA [address], [place], [address], [place] [facility] [place] 01/13/2024 14:30:51 01/05/20 24 Allergy Immunotherapy Injections completed BABS DUNCAN RMA [address], [place], [address], [place] [facility] [place] 01/05/2024 13:22:16 12/30/19 24 Allergy Immunotherapy Injections completed LEANNA ACEVEDO RMA [address],[place] [address], [place], [address], [place] [facility] [place] 12/30/2023 12:06:22 12/23/19 24 Allergy Immunotherapy Injections completed BABS DUNCAN, RMA [address], [place], [address], [place] [facility] [place] 12/23/2023 11:41:23 12/16/19 24 Allergy Immunotherapy Injections completed KOURTNEY MANCINI [address], [place], [address], [place] [facility] 12/16/2023 11:21:05 12/09/19 24 Allergy Immunotherapy Injections completed BABS DUNCAN, RMA [address], [place], [address], [place] [facility] 12/09/2023 11:41:30 11/30/19 24 Allergy Immunotherapy Injections completed CHASIDY OLIVIER RN [address], [place], [address], [place] [facility] 11/30/2023 11:29:17 11/25/19 24 Allergy Immunotherapy Injections completed BABS DUNCAN RMA [address], [place], [address], [place] [facility] 11/25/2023 11:41:02 11/18/19 24 Allergy Immunotherapy Injections completed KOURTNEY MANCINI [address], [place], [address], [place] [facility] 11/18/2023 11:51:54 11/11/19 24 Allergy Immunotherapy Injections completed CHASIDY OLIVIER RN [address] [facility] [address],[place] [place] [address], [address], [place] [facility] [place] 11/11/2023 09:15:07 11/05/19 24 Allergy Immunotherapy Injections completed KOURTNEY MANCINI [address] [facility] [address] [address],[place], [place], [address], [place] [facility] 11/05/2023 12:14:13 10/28/19 24 Allergy Immunotherapy Injections completed BABS DUNCAN RMA [address], [place], [address], [place] [facility] 10/28/2023 14:45:57 10/21/19 24 Allergy Immunotherapy Injections completed KOURTNEY MANCINI [address], [place], [address], [place] [facility] 10/21/2023 11:41:17 10/08/19 24 Allergy Immunotherapy Injections completed BABS DUNCAN, RMA [address], [place], [address], [place] [facility] 10/08/2023 11:33:35 10/01/19 24 Allergy Immunotherapy Injections completed LEANNA ACEVEDO RMA [address], [place], [address], [place] [facility] 10/01/2023 10:32:59 09/23/19 24 Allergy Immunotherapy Injections completed LEANNA ACEVEDO RMA [address], [place], [address], [place] [facility] 09/23/2023 13:46:52 09/16/19 24 Allergy Immunotherapy Injections completed BABS DUNCAN, RMA [address],[place] [address], [place], [address], [place] [facility] 09/16/2023 14:07:22 09/09/19 24 Allergy Immunotherapy Injections completed CHASIDY OLIVIER RN [address],[place] [place] [address], [address], [place] [facility] 09/09/2023 12:03:04 09/02/19 24 Allergy Immunotherapy Injections completed BABS DUNCAN, RMA [address],[place] [address], [place], [address], [place] [facility] 09/02/2023 11:46:51 08/26/19 24 Allergy Immunotherapy Injections completed BABS DUNCAN RMA [address], [place], [address], [place] [facility] 08/26/2023 13:11:56 08/19/19 24 Allergy Immunotherapy Injections completed CHASIDY OLIVIER RN [address],[place] [address], [place], [address], [place] [facility] 08/19/2023 14:02:06 08/10/19 24 Allergy Immunotherapy Injections completed BABS DUNCAN, RMA [address], [place], [address], [place] [facility] 08/10/2023 15:12:45 08/04/19 24 Allergy Immunotherapy Injections completed BABS PERLA, RMA [address],[place] [address], [place], [address], [facility] - [facility] [place] 08/04/2023 12:15:15 08/04/19 24 Cerumen removal without microscope completed ORVILLE ABREU MD [address], [place], [address], [facility] - [facility] [place] 08/04/2023 11:08:52 07/28/19 24 Allergy Immunotherapy Injections completed KOURTNEY MANCINI [address] [facility] [address], [place], [address], [facility] - [facility] 07/28/2023 15:01:20 07/20/19 24 Allergy Immunotherapy Injections completed BABS DUNCAN RMA [address],[place] [facility], [place], [address], [facility] - [facility] 07/20/2023 14:23:42 07/13/19 24 Allergy Immunotherapy Injections completed KOURTNEY MANCINI [address] [facility] [address],[place] [facility], [place], [address], [facility] 07/13/2023 13:59:55 07/06/19 24 Allergy Immunotherapy Injections completed KOURTNEY MANCINI [address] [facility], [place], [address], [facility] - [facility] 07/06/2023 12:17:36 06/29/19 24 Allergy Immunotherapy Injections completed KOURTNEY MANCINI [address] [facility] [address], [place], [address], [facility] - [facility] 06/29/2023 11:04:40 Imaging Results None recorded. [...] as directed 04/26 completed Medicati on ID: [id number] D uration Value: 12 Brand Name: predniso [...] % shampoo 11/23 completed Medicati on ID: [id number] B rand Name: ketocona zole Sen d [...] eye drops 06/16 completed Medicati on ID: [id number] B rand Name: ketotife n fumarate Send [...] eye drops 11/23 completed Medicati on ID: [id number] B rand Name: kassilyn Send Method: E-Prescr ibed Sub s Allowed: subs OK Speci al Instruct ion: INSTILL 1 DROP 4 TIMES A DAY INTO AFFECTED EYE NEEDED M edelvatishonna nGeneric Name: cromolyn Not Available Not Available [...] a day 04/26 completed Medicati on ID: [id number] D uration Value: 7 Brand Name: ofloxaci [...] mg tablet 03/13 completed Medicati on ID: [id number] D uration Value: 15 Brand Name: ruddy navarro Send Method: E-Prescr ibed Sub s Allowed: subs OK Speci al Instruct ion: TAKE 1 TABLET TWICE DAILY NEEDED Nai De La Vega Name: ruddy navarro Not Available Not Available Not Available cyanocoba santy (vit B-12) 500 mcg tablet 06/16 completed Medicati on ID: [id number] B rand Name: cyanocob alamin (vitamin B-12) [...] spray aerosol 06/16 completed Medicati on ID: [id number] B rand Name: triamcin olone acetonid e [...] as directed 11/23 completed Medicati on ID: [id number] D uration Value: 30 Prescri bed By [...] 1 tablet 04/26 completed Medicati on ID: [id number] D uration Value: 14 Prescri bed By [...] mg tablet 03/13 completed Medicati on ID: [id number] B rand Name: Fiber-La x Send Method: [...] unit) capsule 03/13 completed Medicati on ID: [id number] D uration Value: 30 Brand Name: Vitamin [...] extended release 04/26 completed Medicati on ID: [id number] B rand Name: bupropio n HCl Send Method: E-Prescr ibed Sub s Allowed: subs KALIE Urrutiai al Instruct ion: TAKE 1 TABLET BY [...] aerosol inhaler 11/23 completed Medicati on ID: [id number] B rand Name: Symbicor t Send Method: E-Prescr ibed Sub s Allowed: subs KALIE Askew al Instruct ion: INHALE 2 PUFFS BY MOUTH TWICE DAILY IN THE MORNING AND IN THE EVENING, RINSE MOUTH AFTER USING. M edjoseo nGeneric Name: Symbicor t Not Available Not [...] Updated DateTime 11/23/2024 160.02 cm 39.9 kg/m2 332745.28 g Twila Perera [place] [facility] 11/23/2024 11:07:32 Social History None recorded. Functional [...] ICD10 Code Diagnosis IMO Codes Diagnosis Note [id number] Uzair Gutierrez DO [facility] [address] [address] 10/30/2024 10:30:30 10/30/2024 11:48:50 Vocal cord hemorrhage 807621411 R04.1 [id number] Viral uppe r respiratory tract infection 557609332 J06.9 201740 Laryngopha ryngeal reflux 826281562 K21.9 4846528 Gastroesop hageal reflux disease without esophagitis 198252972 K21.9 951393 Edema of larynx 08097255 J38.4 91758 [id number] Uzair Gutierrez DO [facility] [address] [address] 11/23/2024 10:53:48 11/23/2024 11:38:31 Vocal cord hemorrhage 703217569 R04.3 1044387771 Left Viral uppe r respiratory tract infection 657966386 J06.9 263997 Laryngopha ryngeal reflux 747124787 K21.9 6848754 Findings today were consistent with LPR or [...] . Gastroesop hageal reflux disease without esophagitis 251494114 K21.9 677604 Edema of larynx 86616580 J38.4 86116 Atrophy of vocal cord 42 1840047 J38.3 059259 Disorder o f vocal cord 79620791 J38.3 023022 Health Concerns Section Related Observation LastModified by Organization Detai ls LastModified Time None Recorded Concern Status LastModified by Organization Details LastModified Time None Recorded Payers Encounter Date Sequence Insurance Name Policy Number Policy Monet Covered Member ID Monet Member ID Guarantor Name 11/23/2024 1 [place] [facility] Catalina Marrero [id number] Catalina Marrero Notes Date Note Type Note Provider Name and Address Organization Details Recorded Time 11/23/2024 text/html ROS as noted in the [...] to her. Previously seen by Dr. Greenberg/Deja iner: Allergy patient of Dr. Abreu seen for an opinion regarding crusting and debris from the nose. She is also noted chronic shortness of breath and difficulty with exercise. No wheezing but recent use of albuterol. She is taking Advair and cetirizine. Has not been using azelastine Uzair Gutierrez, DO [address] [facility],[place] [address], [place], [address], [place] [facility] 11/23/2024 11:42:40 OBGyn Episode No OBEpisode recorded.
--- OUTSIDE RECORDS SUMMARY | 2025-01-17 22:09 | XMS_ITS | Encounter Summary ---
Author Organization [employer] Address [address] [place] [address] Care Team Providers Care Dyeing Machine Feeder Name Role Phone Vida Van PATTERN HANGER Primary Care Provider Roberta Ritchie MD Primary Care Pro vider Gonsalo Unger PATTERN HANGER Unavailable Unavailable Encounter Details Date Type Department Care Team (Late st Contact Info) Description 01/13/2022 Abstract [facility] [address] [place], [place] [phone] Ashley Badillo RN [address] [place] [address] Social History Tobacco Use Types Packs/Day Years [...] EST Office Visit [facility] [address] [place] [address] Roberta Burroughs MD [address] [place], [place] [phone] documented as of this encounter Visit Diagnoses Not on filedocumented in this encounter Additional Health Concerns Assessment Noted Time PHQ-9 Depression Total Score: 20 022 2:35 PM EST documented as of this encounter Care Teams Dyeing Machine Feeder Relationship Specialty Start Date End Date Vida Van FNP PCP - General Family Medicine 10/06/21 08/04/22 Roberta Burroughs MD [address] [place], [place] [phone] PCP - General Internal Medicine 08/05/22 Gonsalo Unger FNP [address] [place] [address] Nurse Practitioner Family Medicine 12/28/22 documented as of this encounter
--- OUTSIDE RECORDS SUMMARY | 2025-01-17 22:09 | XMS_ITS | Encounter Summary ---
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 Thanks documented in this encounter Plan of Treatment Upcoming Encounters Date Type Department Care Team (Late st Contact Info) Description 03/02/2025 2:00 PM EST Office Visit [facility] [address] [place] [address] Roberta Burroughs MD [address] [place] [address] documented as of this encounter Visit Diagnoses Not on filedocumented in this encounter Additional Health Concerns Assessment Noted Time PHQ-9 Depression Total Score: 16 025 3:33 PM EDT documented as of this encounter Care Teams Assistant Professor Of Surgery Relationship Specialty Start Date End Date Roberta Burroughs MD [address] [place] [address] PCP - General Internal Medicine 08/05/22 Gonsalo Unger FNP [address] [place] [address] Nurse Practitioner Family Medicine 12/28/22 documented as of this encounter
== END 2025-01-17 15:22 | disposition home or self-care (01) ==
LOC: HO.HGI 14:11
PROVIDERS: PCP Student in an Organized Health Care Education/Training Program; Visit Provider Nurse Practitioner
DX: K64.4 Residual hemorrhoidal skin tags (principal); K64.8 Other hemorrhoids; K59.00 Constipation, unspecified; K21.9 Gastro-esophageal reflux disease without esophagitis
CPT/HCPCS: 99203

== ENCOUNTER → 2025-01-17 14:10 | Outpatient (BNVA) | payer MEDICAID, SELFPAY | PROVIDERS: PCP Student in an Organized Health Care Education/Training Program; Visit Provider Nurse Practitioner | DX: K64.4 Residual hemorrhoidal skin tags (principal); K64.8 Other hemorrhoids; K59.00 Constipation, unspecified; K21.9 Gastro-esophageal reflux disease without esophagitis; K62.5 Hemorrhage of anus and rectum; R10.13 Epigastric pain; R11.2 Nausea with vomiting, unspecified; D64.9 Anemia, unspecified; E03.9 Hypothyroidism, unspecified; N76.0 Acute vaginitis; Z79.899 Other long term (current) drug therapy | CPT/HCPCS: 99212 ==